=== PATIENT | male | born 1950 | race Caucasian/White ===

== ENCOUNTER → 2018-01-24 11:18 | Outpatient (CLI) | payer MEDICARE, SELFPAY | PROVIDERS: Family Provider Preventive Medicine Occupational Medicine; PCP Preventive Medicine Occupational Medicine; Visit Provider Urology | DX: R97.20 Elevated prostate specific antigen [PSA] (principal) | CPT/HCPCS: 36415; 84153 ==

== ENCOUNTER 2018-02-04 08:54 | Observation (INO) | payer MEDICARE, SELFPAY ==
[2018-02-04] VITALS (14 sets, daily range): BP systolic 107–140; BP diastolic 58–67; PULSE 61–85; RESP 14–18; TEMP 36.7–37.9; O2SAT 92–99; BMI 28.8
[2018-02-04 09:47] LABS: Hematocrit 23.8 % (40-54); Hemoglobin 7.5 g/dl (13.0-16.5); Mean Corp Hgb Conc 31.5 g/gl (32-36); Mean Corpuscular Hgb 25.9 pg (27.0-32.0); Mean Corpuscular Volume 82.1 fL (80-94); Mean Platelet Vol. 9.7 fl (6.2-12.0); Platelet Count 78 K/mm3 (150-450); RBC Distribution Width CV 18.8 % (11.6-14.6); RBC Distribution Width SD 54.5 fl (35.1-43.9); White Blood Count 1.2 K/mm3 (4.4-11.0)
[2018-02-04 09:48] LABS: Scan Indicated on CBC? Y/N YES- FLAGS NOTED
[2018-02-04 09:54] LABS: Anion Gap 5 (5-15); BUN 26 mg/dL (7-18); Calcium,Total 7.3 mg/dL (8.5-10.1); Chloride 108 mmol/L (98-107); Creatinine, Serum 1.13 mg/dL (0.70-1.30); EST Glomerular Filtration Rate 69 mL/min (>60); Est Glom Filt Rate - Afr Amer 84 mL/min (>60); Estimated Creatinine Clearance 65.17 ml/min; Glucose 89 mg/dL (74-106); Magnesium 2.1 mg/dL (1.6-2.6); Potassium 4.2 mmol/L (3.5-5.1); Sodium Level 142 mmol/L (136-145)
--- NOTE | 2018-02-04 11:05 | ONC.CON.INP2 ---
- Problem List (1) Myelofibrosis Status: Acute (2) Pancytopenia Status: Acute (3) Essential thrombocytosis Status: Chronic (4) Splenomegaly Status: Acute (5) CHF (congestive heart failure) Status: Acute Consult Referring Physician: Dr Jackson Consult Results: Pancytopenia, myelofibrosis, essential thrombocythemia, splenomegaly and congestive heart failure Subjective Date of Service:: 02/04/18 Chief Complaint: SOB History of Present Illness: Patient is a 67-year-old gentleman admitted with increasing fatigue and dyspnea and worsening congestive heart failure. His oncologic history is notable for myelofibrosis post essential thrombocythemia, Marcial 2 positive myeloproliferative neoplasm, pancytopenia and splenomegaly. He was first diagnosed in 2000 treated with Hydrea, anagrelide, and by 2015 developed progressive pancytopenia and splenomegaly and a bone marrow biopsy confirmed secondary myelofibrosis. He started JAKAFI (MARCIAL inhibitor, a tyrosine kinase inhibitor) December 2017 under the care of Dr. Payne. In early January 2018 he developed a viral GI illness which he recovered from a week earlier but subsequently was noted to have developed increasing dyspnea, lower extremities edema and symptoms suggestive of cardiac failure. He recently underwent cardiac cath which the patient reports to his knowledge did not show any significant coronary disease. A cardiac echo was done February 03, 2018 report not available yet. He was recently started on diuretics by his certified surgical assistant. He was hospitalized February 03, 2018 with increasing fatigue, dyspnea and received 2 units of packed red blood cells with some improvement of his symptoms. Past Medical History: Chronic Problems (Last Updated 02/02/18 @ 11:11 by Magalys Ramirez) Essential thrombocytosis (Chronic) Leukopenia (Chronic) Past Medical/Surgical History: Past Medical History - Most Recent Inpatient Visit Past Medical History Start: 02/04/18 08:41 Text: Status: Complete Freq: ONCE Protocol: Document 02/04/18 09:38 MLB (Rec: 02/04/18 09:45 MLB [id number]) BMI Required to complete PMH What is Patient's BMI 28.8 Neurologic Medical History Hx Stroke/TIA No Hx Dementia/Alzheimer's No Hx Parkinson's Disease No Hx Seizures No Hx Multiple Sclerosis No Hx Migraines No Cardiac Medical History VTE Present on Admission No Hx of Deep Vein Thrombosis/VTE/PE No Hx Hypertension Yes Hx Chest Pain/Angina No Hx Heart Attack No Hx Cardiac Surgery/Stents/Etc. No Hx Heart Failure Yes Hx Pacemaker/AICD No Hx Irregular Heartbeat and/or Afib Yes Hx Anticoagulant Therapy Yes: baby ASA Query Text:(Coumadin, Aspirin, Plavix, Xarelto, etc.) Respiratory Medical History Hx COPD No Hx Emphysema No Hx Smoking Yes Smoking Status Former smoker Years Smoking 4 Hx Tobacco Use in last 12 months No Hx Sleep Apnea No Do you snore loudly (louder than talking No or can be heard through closed doors)? Do you often feel tired/ fatigued/ No sleepy during daytime? Has anyone observed you stop breathing No during sleep? STOP Results Negative GI Medical History Hx Ulcer No Hx Hepatitis No Hx Cirrhosis No Hx GI Bleed No Hx Unplanned Weight Loss No Genitourinary Medical History Indwelling Catheter in Place on Arrival/ No Admission Hx Renal Disease No Hx Dialysis No Musculoskeletal History Hx Arthritis No Hx Rheumatoid Arthritis No Endocrine Medical History Hx Diabetes No Hx Thyroid Disease Yes: thyroid removed in 2003 Hematologic Medical History Hx of Blood Transfusion Yes Hx of Transfusion in last 3 Months Yes Date of Last Transfusion (if within last 02/04/18 3 months) Ever experience any problems with No transfusion(s)? Hx of Preganancy in last 3 Months N/A Nurse Filling Out Transfusion & MBALOGH Questions: Date: 02/04/18 Time: 09:44 Psycho/Social Medical History Hx Depression No Hx Anxiety No Hx Behavior Disorder No Hx Alcohol Use Yes: socially- rarely Hx Substance Use No Other Medical History Hx Blood Disorders Yes: myleofibrosis Hx Anemia Yes Hx Cancer Yes Hx Drug Resistant Organism No Wound/Pressure Injury Present on Arrival No /Admission Query Text:If yes, chart assessment in Shift/Clinical Findings Central Line/PICC/VAD Present on Arrival No /Admission Antibiotics within last 7 days? No Methicillin Resistant Staphylococcus aureus Screening Active MRSA No Risk for Readmission Number of Risk Factors 6 At Risk for Readmission Patient is At Risk For Readmission Patient is eligible for Call Back Y Past Medical History (Last Updated 02/02/18 @ 11:11 by Magalys Ramirez) CHF (congestive heart failure) (Acute) Bone cancer (Acute) Heart disease (Acute) Hyperlipidemia (Acute) Prostate cancer (Acute) Thrombocytopenia (Acute) Thyroid disease (Acute) Past Surgical History (Last Reviewed 02/02/18 @ 11:11 by Magalys Ramirez) H/O cardiac catheterization (Acute) History of thyroidectomy (Acute) - Social History Smoking Status: Former smoker Allergies/Adverse Reactions: Allergy/AdvReac Type Severity Reaction Status Date / Time pseudoephedrine AdvReac Severe Itching Verified 02/02/18 11:12 [From [facility]] Review of Systems Constitutional:: Reports: Weakness, Fatigue, Weight gain. Denies: Fever, Sweats, Weight loss, Appetite change, Chills Cardiovascular:: Reports: Ankle swelling, Dyspnea on exertion, Orthopnea, Peripheral edema, Shortness of breath. Denies: Chest pain, Palpitations, PND Respiratory: Reports: Shortness of Breath, Shortness of breath at rest, Shortness of breath upon exertion. Denies: Cough, Hemoptysis, Wheezing Gastrointestinal:: Reports: Gas/bloating. Denies: Abdominal pain, Nausea, Vomiting, Diarrhea, Constipation, Hematochezia Genitourinary: Denies: Dysuria, Hematuria, 15, Flank pain Musculoskeletal:: Denies: Back pain, Myalgia, Arthralgia Skin: Denies: Rash, Skin Changes, Wounds Neurological:: Reports: Headache. Denies: Dizziness, Visual changes, Tinnitus, Hearing loss Psychiatric: Denies: Anxiety, Depression, Homicidal Ideations, Suicidal Ideations Vital Signs Height 5 ft 9 in Weight: 88.451 kg Weight in Pounds 195.0 lbs Pulse Ox 96 Temperature 98.3 F Pulse Rate 63 Respiratory Rate 16 Blood Pressure 140/62 Blood Pressure Position Sitting - Physical Exam General: Alert, Oriented x3, No apparent distress, - - Obese ECOG 2 Mildly pale HEENT: Atraumatic, PERRLA, EOMI, Normocephalic Oropharynx:: Dry mucosa Neck:: Supple, Trachea midline. Negative for: JVD, bilateral Cardiac:: Regular rate, Regular rhythm, Normal S1, Normal S2. Negative for: Murmur Lungs: Clear to auscultation, Diminished - Over the basis, Excusion symmetrical. Negative for: Rhonchi, Wheezes Abdomen:: Soft, Non-tender, - - His abdomen is protuberant making palpation for spleen size difficult. Negative for: Hepatosplenomegaly Extremities:: Edema - 1+ ankles edema. Negative for: Cyanosis Neurological: Neuro grossly intact Skin:: Negative for: Lesions, Rash, Petechiae, Ecchymosis Psychiatric:: Appropriate affect, Euthymic Lymphatics:: Negative for: Cervical lymphadenopathy, Supraclavicular lymphadenopathy Laboratory Data: Laboratory Tests 02/04/18 02/04/18 Range/Units 09:28 09:28 WBC 1.2 L* (4.4-11.0) K/mm3 RBC 2.90 L (4.6-6.2) M/mm3 Hgb 7.5 L (13.0-16.5) g/dl Hct 23.8 L (40-54) % MCV 82.1 (80-94) fL MCH 25.9 L (27.0-32.0) pg MCHC 31.5 L (32-36) g/gl RDW 18.8 H (11.6-14.6) % RDW Differential 54.5 H (35.1-43.9) fl Plt Count 78 L (150-450) K/mm3 MPV 9.7 (6.2-12.0) fl Differential Comment Sodium 142 (136-145) mmol/L Potassium 4.2 (3.5-5.1) mmol/L Chloride 108 H (98-107) mmol/L Carbon Dioxide 29.0 (21.0-32.0) mmol/L Anion Gap 5 (5-15) BUN 26 H (7-18) mg/dL Creatinine 1.13 (0.70-1.30) mg/dL Estim Creat Clear Calc 65.17 ml/min Est GFR (MDRD) Af Amer 84 (>60) mL/min Est GFR (MDRD) Non-Af 69 (>60) mL/min BUN/Creatinine Ratio 23.0 H (10-20) RATIO Glucose 89 (74-106) mg/dL Calcium 7.3 L (8.5-10.1) mg/dL Magnesium 2.1 (1.6-2.6) mg/dL Laboratory Tests 11/11/17 01/06/18 02/02/18 10:59 10:55 10:45 WBC 1.5 L 2.3 L 1.1 L* Hgb 8.5 L 10.2 L 6.8 L Hct 28.5 L 33.3 L 21.9 L Plt Count 153 174 74 L Absolute Neuts (auto) 1.0 L 1.4 L 0.8 L 02/04/18 09:28 WBC 1.2 L* Hgb 7.5 L Hct 23.8 L Plt Count 78 L Absolute Neuts (auto) Assessment and Plan 67-year-old male with Marcial 2 positive myeloproliferative neoplasm (essential thrombocythemia) since 2000 that evolved into secondary myelofibrosis with progressive splenomegaly by 2015. He has developed increasing pancytopenia and splenomegaly and was started on Jakafi December 2017. Recently developed a viral GI illness followed by increasing congestive heart failure symptoms and fluid retention. From the hematology consult aspect recommend: 1. Transfused with packed red blood cells to a target hemoglobin above 8 g per DL. 2. Hold JAKAFI until congestive heart failure is better controlled and cause for cardiac failure is clarified. JAKAFI has an incidence of less than 10% of causing hypertension and fluid retention. 3. The worsening pancytopenia can be due to the natural progression of his bone marrow disease, but worsening pancytopenia can happen with initiation of Jakafi treatment and would require a dose adjustment. Again hold the drug until patient is more stable and can be followed up in the outpatient and if needed dose adjustment. Patient was seen was his impression and plan discussed he has an upcoming follow-up with in the outpatient office that he was advised to keep. Medications: Prescriptions This Visit Medication Instructions Recorded Allopurinol [Zyloprim] 300 mg PO DAILY 02/04/18 Atorvastatin Calcium [Lipitor] 10 mg PO QHS 02/04/18 Doxazosin Mesylate [Cardura] 4 mg PO QHS 02/04/18 Finasteride [Proscar] 5 mg PO DAILY 02/04/18 Furosemide [Lasix] 40 mg PO DAILY 02/04/18 Gemfibrozil [Lopid] 600 mg PO BIDAC 02/04/18 Levothyroxine [Synthroid] 175 mcg PO DAILY 02/04/18 Ruxolitinib Phosphate [Jakafi] 15 mg PO BID 02/04/18 Sotalol Hydrochloride [Betapace 80 mg PO BID 02/04/18 (G)] Medications Added to Medication List This Visit Category Date Time Status Acetaminophen [Tylenol] Med 02/04/18 08:54 Active 650 mg PO Q4H PRN PRN Docusate Sodium [Colace] Med 02/04/18 08:54 Active 200 mg PO BID PRN PRN Mag Hydrox/Al Hydrox/Simeth [Mylanta II] Med 02/04/18 08:54 Active 30 ml PO Q6H PRN PRN Magnesium Hydroxide [Milk Of Magnesia] Med 02/04/18 08:54 Active 30 ml PO DAILY PRN Ondansetron [Zofran] Med 02/04/18 08:54 Active 4 mg IV Q8H PRN PRN Oxycodone [Oxyir] Med 02/04/18 08:54 Active 5 mg PO Q4H PRN PRN Psyllium [Metamucil] Med 02/04/18 08:54 Active 1 packet PO DAILY PRN PRN Primary Care Provider: Diogenes Suarez Referring Provider: Lupillo Marie MD
--- NOTE | 2018-02-04 11:36 | HP.PCM_ITS ---
Problem List (1) Essential thrombocytosis Status: Chronic (2) Leukopenia Status: Chronic Qualifiers: Leukopenia type: other Qualified Code(s): D72.818 - Other decreased white blood cell count (3) Myelofibrosis Status: Chronic (4) Anemia Status: Acute Qualifiers: Bone marrow failure anemia type: myelophthisis (5) Pancytopenia Status: Acute (6) CHF (congestive heart failure) Status: Acute (7) Splenomegaly Status: Chronic History of Present Illness Date of Admission: 02/04/18 Chief Complaint: Fatigue The patient is a 67 year old M with past medical history significant for myelofibrosis for which he is currently getting treatment with JAKAFI who presents with fatigue. Patient reports fatigue which is worsened with minimal activity. Patient first reported to [facility] where he was found to have a hemoglobin of 7 with a BB gun of 1.7. An order was given for patient to be transfused with 1 unit PRBC. Patient subsequently requested to be transferred to [facility] since his oncologist is here. Seen. Patient reports shortness of breath with minimal activity. Denies any chest pain. Denies any nausea no vomiting. Patient has been admitted to a monitored bed for subsequent management Past Medical History Past Medical History (Chronic Problems): Chronic Problems (Last Updated 02/02/18 @ 11:11 by Magalys Ramirez) Essential thrombocytosis (Chronic) Leukopenia (Chronic) Myelofibrosis (Chronic) Splenomegaly (Chronic) Medical History: Medical History (Last Updated 02/02/18 @ 11:11 by Magalys Ramirez) CHF (congestive heart failure) I50.9 Bone cancer C41.9 Heart disease I51.9 Hyperlipidemia E78.5 Prostate cancer C61 Thrombocytopenia D69.6 Thyroid disease E07.9 Allergies pseudoephedrine [From Sudafed] Adverse Reaction (Severe, Verified 02/02/18 11:12 ) Itching FEVER Home Medications: Ambulatory Orders Medication Instructions Recorded Allopurinol [Zyloprim] 300 mg PO DAILY 02/04/18 Atorvastatin Calcium [Lipitor] 10 mg PO QHS 02/04/18 Doxazosin Mesylate [Cardura] 4 mg PO QHS 02/04/18 Finasteride [Proscar] 5 mg PO DAILY 02/04/18 Furosemide [Lasix] 40 mg PO DAILY 02/04/18 Gemfibrozil [Lopid] 600 mg PO BIDAC 02/04/18 Levothyroxine [Synthroid] 175 mcg PO DAILY 02/04/18 Ruxolitinib Phosphate [Jakafi] 15 mg PO BID 02/04/18 Sotalol Hydrochloride [Betapace 80 mg PO BID 02/04/18 (G)] Surgical History: Surgical History (Last Reviewed 02/02/18 @ 11:11 by Magalys Ramirez) H/O cardiac catheterization Z98.890 History of thyroidectomy E89.0 Smoking Status: Former smoker - *Family History Maternal Family History: Family History (Last Reviewed 02/04/18 @ 11:50 by Chidi Garcia MD) Mother Heart disease Father COPD (chronic obstructive pulmonary disease) Review of Systems Constitutional: Reports: Malaise, Weakness Cardiovascular: Reports: Edema, Orthopnea Respiratory: Reports: Shortness of breath upon exertion Gastrointestinal: Denies: Abdominal Pain, Hematemesis, Hematochezia, Nausea, Melena, Vomiting Genitourinary: Denies: Dysuria, Frequency, Hematuria, Urgency Musculoskeletal: Denies: Joint Pain, Joint Tenderness Skin: Denies: Rash Neurological: Denies: Focal weakness, Numbness, Tingling Psychiatric: Denies: Homicidal Ideations, Suicidal Ideations Hematologic/ Lymphatic: Denies: Easy Bruising, Easy Bleeding VTE Information - Inpt Only VTE Present on Admission: No VTE Mechan Device Prophylaxis: Knee High TRINITY Hose VTE Pharm Prophylaxis ordered?: No Patient Problems: Active and Suspected Problems (Last Updated 02/02/18 @ 11:11 by Magalys Ramirez) Anemia (Acute) Pancytopenia (Acute) CHF (congestive heart failure) (Acute) Objective: GENERAL: cooperative HEENT: Clear conjunctiva, NECK; supple, normal thyroid, . CHEST: Diminished to auscultation bilaterally, HEART: Regular S1 S2, no audible murmurs ABDOMEN: soft, non-tender, normoactive bowel sounds, RECTAL: deferred EXTREMITIES: Trace edema, no clubbing, no cyanosis. HEATING WORKER: Awake; no lateralizing signs. SKIN: No Rash - Physical Exam Vital Signs Temp Pulse Resp BP Pulse Ox 98.3 F 63 16 140/62 H 96 02/04/18 08:25 02/04/18 08:50 02/04/18 08:25 02/04/18 08:25 02/04/18 08:25 Oxygen Delivery Method Room Air Weight: 88.451 kg Body Mass Index (BMI) 28.8 Laboratory Tests Past 24 Hrs 02/04/18 02/04/18 09:28 09:28 WBC 1.2 L* RBC 2.90 L Hgb 7.5 L Hct 23.8 L MCV 82.1 MCH 25.9 L MCHC 31.5 L RDW 18.8 H RDW Differential 54.5 H Plt Count 78 L MPV 9.7 Differential Comment Sodium 142 Potassium 4.2 Chloride 108 H Carbon Dioxide 29.0 Anion Gap 5 BUN 26 H Creatinine 1.13 Estim Creat Clear Calc 65.17 Est GFR (MDRD) Af Amer 84 Est GFR (MDRD) Non-Af 69 BUN/Creatinine Ratio 23.0 H Glucose 89 Calcium 7.3 L Magnesium 2.1 Assessment/Plan All Active Problems (Last Updated 02/02/18 @ 11:11 by Magalys Ramirez) Anemia (Acute) Pancytopenia (Acute) CHF (congestive heart failure) (Acute) Patient is a 67-year-old gentleman with history of Myelofibrosis presented with exertional fatigue 1. Symptomatic anemia patient was transferred from [facility]. Patient had been transfused with 2 units PRBC prior to his transfer. An order was given for repeat H&H in a.m. 2. Myelofibrosis patient is on JAKAFI. Held per recommendations from oncology 3. Acute congestive heart failure patient is on Lasix patient recently had an echo a requisition was given for the result 4. Pancytopenia with leukopenia, thrombocytopenia as well as anemia secondary to patient's myelofibrosis 5. 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 History of prostate CA currently remission 7. BPH patient is on Proscar 8. Dyslipidemia-patient is on statin therapy, continued at home dose 9. Paroxysmal A. fib patient is on Betapace currently in sinus rhythm 10. DVT prophylaxis did encourage early ambulation avoided the use of chemoprophylaxis in view of patient low platelet count Active Medications Acetaminophen (Tylenol) 650 mg PO Q4H PRN PRN PRN Reason: FEVER Al Hydroxide/Mg Hydroxide (Mylanta Ii) 30 ml PO Q6H PRN PRN PRN Reason: Gastric Burning Allopurinol (Zyloprim) 300 mg PO DAILY YARELI Atorvastatin Calcium (Lipitor) 10 mg PO QHS [facility] Docusate Sodium (Colace) 200 mg PO BID PRN PRN PRN Reason: Constipation Doxazosin Mesylate (Cardura) 4 mg PO QHS YARELI Finasteride (Proscar) 5 mg PO DAILY [facility] Furosemide (Lasix) 40 mg IV Q8 YARELI Gemfibrozil (Lopid) 600 mg PO BIDAC [facility] Levothyroxine Sodium (Synthroid) 175 mcg PO DAILY@0600 [facility] Magnesium Hydroxide (Milk Of Magnesia) 30 ml PO DAILY PRN PRN Reason: Constipation Ondansetron HCl (Zofran) 4 mg IV Q8H PRN PRN PRN Reason: Nausea Oxycodone HCl (Oxyir) 5 mg PO Q4H PRN PRN PRN Reason: Moderate Pain (pain scale 4-5) Psyllium Hydrophilic Mucilloid (Metamucil) 1 packet PO DAILY PRN PRN PRN Reason: CONSTIPATION Sotalol HCl (Betapace (G)) 80 mg PO BID [facility] Code Visit OBSV E&M: 62111 Initial observation care L3
[2018-02-04 12:41] LABS: BNP,B-Type NATRIURETIC PEPTIDE 505.5 pg/mL (0-100)
[2018-02-04] MEDS: Sotalol Hydrochloride 80 MG Tablet PO ×2 (12:45→21:48)
[2018-02-04] MEDS: Allopurinol 300 MG Tablet PO (12:45)
[2018-02-04] MEDS: Furosemide 40 MG/4 ML Vial IV ×2 (12:45→21:48)
[2018-02-04 12:47] LABS: Thyroid Stim Hormone (TSH) 6.77 uIU/mL (0.358-3.74)
[2018-02-04] MEDS: Mag Hydrox/Al Hydrox/Simeth 30 ML UDC PO (14:37)
[2018-02-04] MEDS: Gemfibrozil 600 MG Tablet PO (17:20)
[2018-02-04] MEDS: 0.9% NaCl Peripheral Flush Adult/Peds IV (21:48)
[2018-02-04] MEDS: Finasteride 5 MG Tablet PO (21:48)
[2018-02-04] MEDS: Doxazosin 4 MG Tablet PO (21:48)
[2018-02-04] MEDS: Atorvastatin Calcium 10 MG Tablet PO (21:48)
[2018-02-04] MEDS: Acetaminophen 325 MG Tablet 650 MG PO (22:44)
[2018-02-05 02:32] LABS: Hematocrit 26.6 % (40-54); Hemoglobin 8.5 g/dl (13.0-16.5)
[2018-02-05 03:12] VITALS: PULSE 61
[2018-02-05 05:44] VITALS: BP 112/62; PULSE 71; RESP 16; TEMP 38.1; O2SAT 92
[2018-02-05] MEDS: 0.9% NaCl Peripheral Flush Adult/Peds IV (05:46)
[2018-02-05] MEDS: Levothyroxine 175 MCG Tablet PO (05:46)
[2018-02-05] MEDS: Furosemide 40 MG/4 ML Vial IV (05:46)
[2018-02-05] MEDS: Acetaminophen 325 MG Tablet 650 MG PO (05:48)
[2018-02-05 06:57] LABS: Hemoglobin 8.6 g/dl (13.0-16.5)
[2018-02-05 07:10] VITALS: PULSE 81
[2018-02-05 08:06] LABS: Hematocrit 26.8 % (40-54); Hemoglobin 8.6 g/dl (13.0-16.5); Mean Corp Hgb Conc 32.1 g/gl (32-36); Mean Corpuscular Volume 84.3 fL (80-94); Platelet Count 89 K/mm3 (150-450); RBC Distribution Width CV 18.8 % (11.6-14.6); RBC Distribution Width SD 54.3 fl (35.1-43.9); Red Blood Count 3.18 M/mm3 (4.6-6.2); White Blood Count 1.1 K/mm3 (4.4-11.0)
[2018-02-05 08:07] LABS: Differential Indicated MANUAL DIFF; POSITIVE COUNT YES; POSITIVE DIFFERENTIAL YES; POSITIVE MORPHOLOGY YES
--- NOTE | 2018-02-05 08:17 | RAD_ITS ---
STUDY: X-RAY CHEST REASON FOR EXAM: Male, 67 years old. Fever TECHNIQUE: Frontal view of the chest COMPARISON: None. FINDINGS: The lungs are clear. There are no pleural effusions. There is no pneumothorax. The heart is normal in size. The visualized osseous structures are within normal limits. RAD/Chest 1 View (Portable) IMPRESSION: No acute thoracic pathology. Electronically Signed: Isreal Lorenzana, at 9:43 EDT Tel , Service support ,
[2018-02-05 08:19] LABS: Anisocytosis 2+; Eosinophil 2 % (0-5); Hypochromasia 2+; Lymphocyte 14 % (19-41); Metamyelocyte 2 % (0-1); Monocyte 8 % (0-10); Neutrophil-Band 4 % (0-5); Neutrophil-Segmented 70 % (47-70); Nucleated Red Bld Cells,Manual 4 % (0-5); Platelet Estimate MKD DEC (ADEQ); Platelet Morphology LARGE; Total Cells Counted 50 (MANUAL DIFF)
[2018-02-05 08:20] LABS: Polychromasia 1+; Tear Drop Cell 1+
[2018-02-05 08:21] LABS: Absolute Lymphocyte Count 0.07 X10^3/ul (0.83-4.51); Absolute Neutrophil Count 0.4 X10^3/uL (2.0-7.7)
[2018-02-05] MEDS: Sotalol Hydrochloride 80 MG Tablet PO (09:29)
[2018-02-05] MEDS: Gemfibrozil 600 MG Tablet PO (09:29)
[2018-02-05] MEDS: Allopurinol 300 MG Tablet PO (09:29)
[2018-02-05 09:30] VITALS: BP 104/51; PULSE 68; RESP 18; TEMP 36.9; O2SAT 96
--- NOTE | 2018-02-05 10:18 | DCINST_ITS ---
- Discharge Diagnoses Current Active Problems: Current Active and Chronic Problems (Last Updated 02/02/18 @ 11:11 by Magalys Ramirez) Essential thrombocytosis (Chronic) Leukopenia (Chronic) Myelofibrosis (Chronic) Anemia (Acute) Pancytopenia (Acute) CHF (congestive heart failure) (Acute) Splenomegaly (Chronic) You will use the following diet at home:: Regular Your food should be the consistency of: Regular Discharge Activity: Return to Normal Activity Weight Bearing Status: Weight bearing as tolerated Call your doctor if you observe: Fever of 101 or Higher, Shortness of breath, Dizziness, Fainting spells, Chest pain, Increased palpitations (irregular heartbeat), Uncontrolled pain Additional Instructions: Stop taking Jakafi until you see Dr. Jansen. Allergies/Adverse Reactions: Allergies pseudoephedrine [From Sudafed] Adverse Reaction (Severe, Verified 02/02/18 11:12 ) Itching FEVER Medications to take at Discharge Allopurinol [Zyloprim] 300 mg PO DAILY 02/04/18 Atorvastatin Calcium [Lipitor] 10 mg PO QHS 02/04/18 Doxazosin Mesylate [Cardura] 4 mg PO QHS 02/04/18 Finasteride [Proscar] 5 mg PO DAILY 02/04/18 Furosemide [Lasix] 40 mg PO DAILY 02/04/18 Gemfibrozil [Lopid] 600 mg PO BIDAC 02/04/18 Levothyroxine [Synthroid] 175 mcg PO DAILY 02/04/18 Ruxolitinib Phosphate [Jakafi] 15 mg PO BID 02/04/18 Sotalol Hydrochloride [Betapace (Beta Wally)] 80 mg PO BID 02/04/18 Primary Care Physician: Diogenes Suarez DO [Primary Care Provider] - Please follow up with your Primary Care Physician in: 1-2 weeks. Test Results: Test results from this visit will be discussed in further detail at your follow- up appointment, if applicable. Please Follow Up With: Faheem Jansen MD When: as scheduled.
[2018-02-05 10:57] LABS: Bacteria 0 SEEN /hpf (None Seen); Mucous, Urine 0 SEEN /hpf (<or=2+); Red Blood Cells-Urine 0 SEEN /hpf (0-5); Squamous Epithelial Cells - UA 0 SEEN /hpf (0-5); White Blood Cells 0 SEEN /hpf (0-5)
[2018-02-05 10:58] LABS: Color, Urine Yellow (Yellow); Glucose, Dipstick Normal (Normal); Ketone-Dipstick Negative (Negative); Leukocyte Esterase-Dipstick Negative /ul (Negative); Nitrite-Dipstick Negative (Negative); Occult Blood-Urine Negative /ul (Negative); Protein-Dipstick Negative (Negative); Urine Bilirubin Dipstick Negative (Negative); Urine Clarity Clear (Clear); Urine Urobilinogen Normal (Normal)
[2018-02-05 11:05] LABS: Hyaline Cast 0-5 SEEN /lpf (0-5)
--- NOTE | 2018-02-05 16:23 | DS.PCM_ITS ---
Discharge Date and Diagnosis Date of Admission: 02/04/18 Date of Discharge: 02/05/18 - Primary Discharge Diagnosis #1 acute on chronic symptomatic anemia required blood transfusion. #2 pancytopenia/neutropenia. - Secondary Discharge Diagnosis Chronic Problems (Last Updated 02/02/18 @ 11:11 by Magalys Ramirez) Essential thrombocytosis (Chronic) Leukopenia (Chronic) Myelofibrosis (Chronic) Splenomegaly (Chronic) Hospital Course and Treatment Imaging Results: 02/05/18 08:17 CXR [Chest 1 View (Portable)] [RAD] Urgent Clinical Impression(s) from Imaging Studies Chest X-Ray 02/05/18 08:17 IMPRESSION: No acute thoracic pathology. Electronically Signed: Isreal Lorenzana, at 9:43 EDT Tel , Service support , , oncology. Operations: None Procedures: Blood transfusion Summary of Care Provided: Patient seen and examined on the day of discharge and appeared to be stable to be discharged home. He denied any significant complaints. Denies chest pain or shortness of breath. Denied dizziness or lightheadedness. He has been having spikes of low-grade fever overnight. He mentioned that he has been having spikes of low-grade fever at home for long time. Denies cough or sputum production. Denies urinary symptoms. His maximum temperature was 100.5 Fahrenheit, other vital signs are stable. - Physical Exam General: Alert, Oriented x3, Cooperative, No apparent distress. HEENT: Atraumatic, PERRLA, EOMI. Neck: Supple, No JVD, Negative Carotid Bruits, Trachea Midline, Thyroid Normal. Lungs: Clear to auscultation, Normal air movement, No rhonchi, No wheeze, No rales. Cardiovascular: Regular rate, Regular Rhythm, Normal S1, Normal S2, PMI Normal. Abdomen: Bowel Sounds Present, Soft, Non Tender, Non-Distended, No Hepato- splenomegaly. Extremities: No clubbing, No cyanosis, No edema Skin: No rashes, No breakdown Neurological: Neuro grossly intact Hospital course: This is a 67 years old male patient transferred from outside facility for symptomatic acute on chronic anemia. He had history of myelofibrosis. He was found to have pancytopenia with neutropenia. He received 2 units of packed RBCs at the other facility and after transfer, he received and another unit of packed RBCs. His hemoglobin upon admission was 7.5 g/dL and upon discharge, it was 8.6 g/dL. Patient was on Jakafi for myelofibrosis. Oncology consulted and recommended to transfuse blood if hemoglobin less than 8 g/dL. After transfusion, hemoglobin and hematocrit remained stable and his symptoms improved. Patient had spikes of low-grade fever during this hospital stay, maximum was 100.5 Fahrenheit. He mentioned that he has been having spikes of low-grade fever for a long time, months if not years. He denied any symptoms suggestive of infection. Chest x-ray showed no acute findings, no infiltrate. Urinalysis revealed clear urine, negative for nitrite, negative for leukocyte esterase, there was no WBCs or bacteria seen. Blood culture sent. His absolute neutrophil count was 400. I discussed the case with Dr. Jansen and we agreed to do blood cultures while the patient is here, no indication for IV antibiotics and plan is to have Dr. Jansen monitor his blood cultures and call the patient if needed. Patient discharged home in a stable medical condition, discharged on the same medication that he was taking at home, requested to stop taking Jakafi, plan to follow-up with oncology this coming week, follow-up with PCP in 1 week. Discharge Activity: Return to Normal Activity Weight Bearing Status: Weight bearing as tolerated Call your doctor if you observe: Fever of 101 or Higher, Shortness of breath, Dizziness, Fainting spells, Chest pain, Increased palpitations (irregular heartbeat), Uncontrolled pain Home Medications: Medications to take at Discharge Allopurinol [Zyloprim] 300 mg PO DAILY 02/04/18 Atorvastatin Calcium [Lipitor] 10 mg PO QHS 02/04/18 Doxazosin Mesylate [Cardura] 4 mg PO QHS 02/04/18 Finasteride [Proscar] 5 mg PO DAILY 02/04/18 Furosemide [Lasix] 40 mg PO DAILY 02/04/18 Gemfibrozil [Lopid] 600 mg PO BIDAC 02/04/18 Levothyroxine [Synthroid] 175 mcg PO DAILY 02/04/18 Ruxolitinib Phosphate [Jakafi] 15 mg PO BID 02/04/18 Sotalol Hydrochloride [Betapace (Beta Wally)] 80 mg PO BID 02/04/18 Primary Care Physician: Diogenes Suarez DO [Primary Care Provider] - Please follow up with your Primary Care Physician in: 1-2 weeks. Please Follow Up With: Faheem Jansen MD When: as scheduled. Disposition: Home Minutes spent on discharge:: 26 Patient Condition:: Stable Medical Necessity - Tobacco Use Smoking Status: Former smoker Meaningful Use Info Meaningful Use Diagnoses (Choose all that apply): None applicable Code Visit OBSV E&M: 09227 Observation care discharge
[2018-02-07 14:09] LABS: Pathologist Review Reviewed
== END 2018-02-05 10:17 | disposition home or self-care (01) ==
PROVIDERS: Internal Medicine; Admitting Provider Hospitalist; Family Provider Preventive Medicine Occupational Medicine; PCP Preventive Medicine Occupational Medicine; Visit Provider Hospitalist
DX: D61.818 Other pancytopenia (principal); D75.81 Myelofibrosis; Z87.891 Personal history of nicotine dependence; D61.89 Other specified aplastic anemias and other bone marrow failure syndromes; I50.9 Heart failure, unspecified; C41.9 Malignant neoplasm of bone and articular cartilage, unspecified; E78.5 Hyperlipidemia, unspecified; I51.9 Heart disease, unspecified; Z79.899 Other long term (current) drug therapy; Z85.46 Personal history of malignant neoplasm of prostate; E89.0 Postprocedural hypothyroidism; I48.0 Paroxysmal atrial fibrillation; N40.0 Benign prostatic hyperplasia without lower urinary tract symptoms
CPT/HCPCS: 36415; 36430; 71045; 80048; 81001; 83735; 83880; 84443; 84484; 85014; 85018; 85025; 85027; 86850; 86900; 86920; 86922; 87040; 96374; 96376; 99218; J7040; P9016; A4216; G0378; G0379; J1940

== ENCOUNTER 2018-02-07 10:55 | Emergency (ER) | payer MEDICARE, SELFPAY ==
[2018-02-07 10:56] VITALS: BP 152/79; PULSE 71; RESP 18; TEMP 37.1; O2SAT 95; BMI 29.7
[2018-02-07] MEDS: 0.9% Normal Saline 1,000 ML 150 ML IV (13:11)
[2018-02-07 13:20] LABS: Absolute Lymphocyte Count 0.16 X10^3/ul (0.83-4.51); Absolute Neutrophil Count 0.5 X10^3/uL (2.0-7.7); Basophil# 0.01 X10^3/uL; Basophil% 1.5 % (0-1); Eosinophil# 0.01 X10^3/uL; Eosinophils% 1.5 % (0-5); Hematocrit 23.8 % (40-54); Hemoglobin 7.6 g/dl (13.0-16.5); Lymphocyte # 0.16 X10^3/ul (4.0); Lymphocyte % 23.5 % (19-41); Mean Corp Hgb Conc 31.9 g/gl (32-36); Mean Corpuscular Hgb 26.5 pg (27.0-32.0); Mean Corpuscular Volume 82.9 fL (80-94); Monocyte# 0.02 X10^3/uL; Monocyte% 2.9 % (0-10); Neutrophil # 0.47 X10^3/uL (2.7-7.7); Neutrophil % 69.1 % (47-70); Platelet Count 63 K/mm3 (150-450); RBC Distribution Width CV 19.7 % (11.6-14.6); RBC Distribution Width SD 59.9 fl (35.1-43.9); Red Blood Count 2.87 M/mm3 (4.6-6.2)
[2018-02-07 13:21] LABS: Differential Indicated SCAN CRITERIA MET; POSITIVE COUNT YES; POSITIVE DIFFERENTIAL YES; POSITIVE MORPHOLOGY YES; White Blood Count 0.7 K/mm3 (4.4-11.0)
[2018-02-07 13:22] LABS: Absolute Nucleated RBC Count 0.03 10^3/uL (0-5); NRBC Flagged by Analyzer 5.2 % (0-5)
[2018-02-07 13:34] LABS: AST(SGOT) 19 U/L (15-37); Alanine Aminotransfer ALT/SGPT 16 U/L (16-61); Albumin, Serum 3.5 g/dL (3.2-5.0); Alkaline Phosphatase 55 U/L (45-117); Anion Gap 6 (5-15); BUN 47 mg/dL (7-18); BUN/Creat Ratio 27.6 RATIO (10-20); Calcium,Total 7.7 mg/dL (8.5-10.1); Chloride 105 mmol/L (98-107); EST Glomerular Filtration Rate 43 mL/min (>60); Est Glom Filt Rate - Afr Amer 52 mL/min (>60); Estimated Creatinine Clearance 43.32 ml/min; Globulin 3.4 g/dL (2.2-4.2); Glucose 99 mg/dL (74-106); Protein, Total 6.9 g/dL (6.4-8.2); Sodium Level 139 mmol/L (136-145)
[2018-02-07 13:36] LABS: Lactic Acid 0.6 mmol/L (0.4-2.0)
[2018-02-07 13:43] LABS: Anisocytosis 2+; Ovalocyte 1+; Platelet Estimate MKD DEC (ADEQ); Red Cell Morphology N CHROM NORMAL (NORM C&C); Tear Drop Cell 2+
[2018-02-07 13:59] LABS: Mucous, Urine 0 SEEN /hpf (<or=2+); Red Blood Cells-Urine 0 SEEN /hpf (0-5); Squamous Epithelial Cells - UA 0 SEEN /hpf (0-5); White Blood Cells 0 SEEN /hpf (0-5)
[2018-02-07 14:00] VITALS: BP 102/53; PULSE 70; RESP 18; O2SAT 95
[2018-02-07 14:02] LABS: Color, Urine Yellow (Yellow); Glucose, Dipstick Normal (Normal); Ketone-Dipstick Negative (Negative); Leukocyte Esterase-Dipstick Negative /ul (Negative); Nitrite-Dipstick Negative (Negative); Occult Blood-Urine Negative /ul (Negative); Protein-Dipstick Negative (Negative); Urine Bilirubin Dipstick Negative (Negative); Urine Clarity Clear (Clear); Urine Urobilinogen Normal (Normal); Urine pH 6.5 (5.0 - 8.0)
[2018-02-07 14:09] LABS: Bacteria RARE /hpf (None Seen)
--- NOTE | 2018-02-07 14:22 | RAD_ITS ---
STUDY: X-RAY CHEST REASON FOR EXAM: Male, 67 years old. fever,slight cough, neutropenic TECHNIQUE: 2 COMPARISON: None. FINDINGS: The lungs are clear and expanded. There is no demonstrated pleural abnormality. Normal size heart. Normal mediastinum and [place]. Normal visualized pulmonary arteries. Normal visualized aortic arch and descending thoracic aorta. Normal visualized thoracic spine. There is degenerative osteoarthritis of the bilateral shoulders. There is no demonstrated abnormality of the visualized soft tissue structures of the upper abdomen. RAD/Chest PA and Lateral IMPRESSION: Normal x-ray examination of the chest. Electronically Signed: Aleks Bah MD at 15:30 EDT Tel , Service support ,
--- NOTE | 2018-02-07 15:09 | ED.VISSUMM ---
- ER Visit Summary Date of Service: 02/07/18 Chief Complaint: Sent to the room because of reported fever and history of pancytopenia History of Present Illness: The patient is a 67 M who has history of myelofibrosis and pancytopenia who was admitted this past weekend for symptomatic anemia. He had documented temperature 103.2? less than 24 hours ago. Prior to presentation his temperature was 99.8?F. His only complaint is some objective minimal cough and abdominal pain. He also noted petechia. He denies headache, nasal congestion, rhinorrhea, postnasal drainage. Denies earache or sore throat. He denies dyspnea on exertion or at rest. He denies dysuria, frequency, urgency or hematuria. He has no other complaints. Past medical history of CHF with spared ejection fraction, hypercholesterolemia, pancytopenia with history of myelofibrosis. Physical Examination: Patient appears pale. HEENT exam is remarkable for pale conjunctivae. Lungs are clear to auscultation. Heart is regular. Abdomen is soft distended nontender to light palpation. He complains of minimal discomfort with deep palpation in the epigastric area. There is no asymmetry, swelling, discoloration, leg vein distention, palpable cords or tenderness along the distribution of the deep venous system. Neuro exam is nonfocal. Test Results: White count is 700 with an absolute neutrophil count of 480. Creatinine slightly elevated at 1.7 which is about baseline. His most recent creatinine was 1.13. UA is unremarkable. Lactate is normal. Two-view chest x-ray reveals normal cardiac silhouette and mediastinum. There is no infiltrate noted. There is no effusion noted. Emergency Department Course and Treatment: Neutropenic order set was initiated and he received a dose of meropenem. Treatment Plan: Case was discussed with oncologist. Plan is to discharge a prescription for Augmentin and ciprofloxacin. Disposition: Discharged to home with spouse Impression: 1. Fever and neutropenic patient 2. History of myelofibrotic disease 3. Renal insufficiency 4. Anemia, hemoglobin 7.6 asymptomatic 5. History of congestive heart failure This note was generated with [employer] dictation software. It may contain incorrect words, spelling, and punctuation that were not noted in review of the chart prior to signing ED Disposition - Plan for ED Patient: Disposition: Home or Assisted Living Chief Complaint: Fever Instructions: Neutropenia Prescriptions: Amoxicillin/Potassium Clav [Augmentin 875-125 Tablet] 1 ea PO BID #14 tab Ciprofloxacin [Cipro] 500 mg PO BID #14 tab Referrals: Diogenes Suarez DO [Primary Care Provider] - Lupillo Payne MD [NON-STAFF] - 3-5 Days if not improving Additional Instructions: Your prescription was sent to [facility] pharmacy your preferred pharmacy
--- NOTE | 2018-02-07 15:17 | ED.DCSUM_ITS ---
- ER Visit Summary Date of Service: 02/07/18 Chief Complaint: Sent to the room because of reported fever and history of pancytopenia History of Present Illness: The patient is a 67 M who has history of myelofibrosis and pancytopenia who was admitted this past weekend for symptomatic anemia. He had documented temperature 103.2? less than 24 hours ago. Prior to presentation his temperature was 99.8?F. His only complaint is some objective minimal cough and abdominal pain. He also noted petechia. He denies headache, nasal congestion, rhinorrhea, postnasal drainage. Denies earache or sore throat. He denies dyspnea on exertion or at rest. He denies dysuria, frequency, urgency or hematuria. He has no other complaints. Past medical history of CHF with spared ejection fraction, hypercholesterolemia , pancytopenia with history of myelofibrosis. Physical Examination: Patient appears pale. HEENT exam is remarkable for pale conjunctivae. Lungs are clear to auscultation. Heart is regular. Abdomen is soft distended nontender to light palpation. He complains of minimal discomfort with deep palpation in the epigastric area. There is no asymmetry, swelling, discoloration, leg vein distention, palpable cords or tenderness along the distribution of the deep venous system. Neuro exam is nonfocal. Test Results: White count is 700 with an absolute neutrophil count of 480. Creatinine slightly elevated at 1.7 which is about baseline. His most recent creatinine was 1.13. UA is unremarkable. Lactate is normal. Two-view chest x- ray reveals normal cardiac silhouette and mediastinum. There is no infiltrate noted. There is no effusion noted. Emergency Department Course and Treatment: Neutropenic order set was initiated and he received a dose of meropenem. Treatment Plan: Case was discussed with oncologist. Plan is to discharge a prescription for Augmentin and ciprofloxacin. Disposition: Discharged to home with spouse Impression: 1. Fever and neutropenic patient 2. History of myelofibrotic disease 3. Renal insufficiency 4. Anemia, hemoglobin 7.6 asymptomatic 5. History of congestive heart failure This note was generated with [employer] dictation software. It may contain incorrect words, spelling, and punctuation that were not noted in review of the chart prior to signing ED Disposition - Plan for ED Patient: Disposition: Home or Assisted Living Chief Complaint: Fever Instructions: Neutropenia Prescriptions: Amoxicillin/Potassium Clav [Augmentin 875-125 Tablet] 1 ea PO BID #14 tab Ciprofloxacin [Cipro] 500 mg PO BID #14 tab Referrals: Diogenes Suarez DO [Primary Care Provider] - Lupillo Payne MD [NON-STAFF] - 3-5 Days if not improving Additional Instructions: Your prescription was sent to [facility] pharmacy your preferred pharmacy
[2018-02-07 15:50] VITALS: BP 104/58; PULSE 58; RESP 16; O2SAT 96
[2018-02-08 16:29] LABS: Pathologist Review Reviewed
== END 2018-02-07 15:51 | disposition home or self-care (01) ==
PROVIDERS: Emergency Provider Emergency Medicine; Family Provider Preventive Medicine Occupational Medicine; PCP Preventive Medicine Occupational Medicine
DX: R50.9 Fever, unspecified (principal); D70.9 Neutropenia, unspecified; D75.81 Myelofibrosis; N28.9 Disorder of kidney and ureter, unspecified; D64.9 Anemia, unspecified; I50.9 Heart failure, unspecified; E78.00 Pure hypercholesterolemia, unspecified; Z79.899 Other long term (current) drug therapy; Z87.891 Personal history of nicotine dependence
CPT/HCPCS: 71046; 80053; 81001; 83605; 85025; 87040; 87086; 87088; 96365; 96366; 99284; J2185; A4216

== ENCOUNTER 2018-03-23 21:33 | Inpatient (IN) | payer MEDICARE, SELFPAY ==
[2018-03-23 21:35] VITALS: BP 108/63; PULSE 78; RESP 16; TEMP 37.5; O2SAT 98; BMI 29.2
[2018-03-24] VITALS (13 sets, daily range): BP systolic 108–129; BP diastolic 51–83; PULSE 73–88; RESP 12–20; TEMP 37.2–39.3; O2SAT 93–100; BMI 28.7
[2018-03-24] MEDS: 0.9% Normal Saline 1,000 ML 150 ML IV ×3 (00:04→18:10)
[2018-03-24 00:18] LABS: Lactic Acid 0.6 mmol/L (0.4-2.0)
[2018-03-24] MEDS: levoFLOXacin IV 750 MG/150 ML BAG 100 MG IV (00:33)
[2018-03-24 00:41] LABS: Hematocrit 26.8 % (40-54); Hemoglobin 8.2 g/dl (13.0-16.5); Mean Corp Hgb Conc 30.6 g/gl (32-36); Mean Corpuscular Hgb 27.2 pg (27.0-32.0); Mean Corpuscular Volume 88.7 fL (80-94); Platelet Count 123 K/mm3 (150-450); RBC Distribution Width CV 20.3 % (11.6-14.6); Red Blood Count 3.02 M/mm3 (4.6-6.2)
[2018-03-24 00:42] LABS: Differential Indicated MANUAL DIFF; POSITIVE COUNT YES; POSITIVE DIFFERENTIAL YES; POSITIVE MORPHOLOGY YES; White Blood Count 1.2 K/mm3 (4.4-11.0)
[2018-03-24 00:43] LABS: Bacteria 0 SEEN /hpf (None Seen); Mucous, Urine 0 SEEN /hpf (<or=2+); Red Blood Cells-Urine 0 SEEN /hpf (0-5); Squamous Epithelial Cells - UA 0 SEEN /hpf (0-5); White Blood Cells 0 SEEN /hpf (0-5)
[2018-03-24 00:44] LABS: Color, Urine Yellow (Yellow); Glucose, Dipstick Normal (Normal); Ketone-Dipstick Negative (Negative); Leukocyte Esterase-Dipstick Negative /ul (Negative); Nitrite-Dipstick Negative (Negative); Occult Blood-Urine Negative /ul (Negative); Protein-Dipstick 15 mg/dl (Negative); Urine Bilirubin Dipstick Negative (Negative); Urine Clarity Clear (Clear); Urine Urobilinogen Normal (Normal)
--- NOTE | 2018-03-24 00:50 | NURSING ---
dr scales notified of wbc 1. 2
[2018-03-24 01:01] LABS: ALB/GLOB Ratio 1.1 RATIO (0.9-2.4); AST(SGOT) 16 U/L (15-37); Alanine Aminotransfer ALT/SGPT 13 U/L (16-61); Albumin, Serum 3.7 g/dL (3.2-5.0); Alkaline Phosphatase 58 U/L (45-117); Anion Gap 11 (5-15); BUN 46 mg/dL (7-18); BUN/Creat Ratio 27.5 RATIO (10-20); Calcium,Total 8.2 mg/dL (8.5-10.1); Chloride 106 mmol/L (98-107); Creatinine, Serum 1.67 mg/dL (0.70-1.30); EST Glomerular Filtration Rate 44 mL/min (>60); Est Glom Filt Rate - Afr Amer 53 mL/min (>60); Globulin 3.3 g/dL (2.2-4.2); Glucose 106 mg/dL (74-106); Potassium 4.4 mmol/L (3.5-5.1); Sodium Level 143 mmol/L (136-145)
[2018-03-24 01:09] LABS: Basophil 4 % (0-1); Lymphocyte 22 % (19-41); Monocyte 2 % (0-10); Neutrophil-Band 6 % (0-5); Neutrophil-Segmented 66 % (47-70); Platelet Estimate ADEQUATE (ADEQ); Total Cells Counted 50 (MANUAL DIFF)
[2018-03-24 01:10] LABS: Anisocytosis 3+; Red Cell Morphology N CHROM NORMAL (NORM C&C); Schistocytes 1+; Tear Drop Cell 2+
[2018-03-24 01:11] LABS: Absolute Lymphocyte Count 0.26 X10^3/ul (0.83-4.51); Absolute Neutrophil Count 0.9 X10^3/uL (2.0-7.7); Lymphocyte # 0.26 X10^3/ul (4.0); NRBC Flagged by Analyzer 2.7 % (0-5); Neutrophil # 0.86 X10^3/uL (2.7-7.7)
[2018-03-24 01:12] LABS: Absolute Nucleated RBC Count 0.03 10^3/uL (0-5)
--- NOTE | 2018-03-24 01:43 | PCM.HP.STD ---
Problem List (1) Neutropenic fever Status: Acute (2) Myelofibrosis Status: Chronic (3) Pancytopenia Status: Chronic (4) CHF (congestive heart failure) Status: Chronic History of Present Illness Date of Admission: 03/24/18 Chief Complaint: Fever and fatigue ?1 day. The patient is a 67 year old M with a significant history of myelofibrosis on Jakafi; gout; hypothyroidism after thyroidectomy for multinodular goiter; congestive heart failure and hyperlipidemia who presents with 1 day history of fever and fatigue. He reports he reports that he has been more tired and weak than previous. His temperature at home was 100.9 and he took tylenol. On presentation his temperature was 99.5. Past Medical History Past Medical History (Chronic Problems): Chronic Problems (Last Reviewed 03/24/18 @ 02:34 by Lupillo Marie MD) Essential thrombocytosis (Chronic) Leukopenia (Chronic) Myelofibrosis (Chronic) Anemia (Chronic) Pancytopenia (Chronic) CHF (congestive heart failure) (Chronic) Splenomegaly (Chronic) Medical History: Medical History (Last Reviewed 03/24/18 @ 02:34 by Lupillo Marie MD) CHF (congestive heart failure) I50.9 Heart disease I51.9 Hyperlipidemia E78.5 Myeloproliferative neoplasm D47.1 Thrombocytopenia D69.6 Thyroid disease E07.9 Allergies pseudoephedrine [From Sudafed] Adverse Reaction (Severe, Verified 03/23/18 21:42) Itching FEVER Home Medications: Ambulatory Orders Medication Instructions Recorded Allopurinol [Zyloprim] 300 mg PO DAILY 02/04/18 Atorvastatin Calcium [Lipitor] 10 mg PO QHS 02/04/18 Doxazosin Mesylate [Cardura] 4 mg PO QHS 02/04/18 Finasteride [Proscar] 5 mg PO DAILY 02/04/18 Furosemide [Lasix] 40 mg PO DAILY 02/04/18 Gemfibrozil [Lopid] 600 mg PO BIDAC 02/04/18 Levothyroxine [Synthroid] 175 mcg PO DAILY 02/04/18 Sotalol Hydrochloride [Betapace 80 mg PO BID 02/04/18 (Beta Wally)] Ruxolitinib Phosphate [Jakafi] 15 mg PO X1 03/17/18 Surgical History: Surgical History (Last Reviewed 09/06/18 @ 02:34 by Lupillo Marie MD) H/O cardiac catheterization Z98.890 H/O prostate biopsy Z98.890 History of bone marrow biopsy Z98.890 History of thyroidectomy E89.0 Lives: Spouse/ Significant Other Smoking Status: Former smoker Tobacco Use: Non-smoker Alcohol: Occasional - *Family History Maternal Family History: Family History (Last Updated 03/24/18 @ 02:35 by Lupillo Marie MD) Mother Heart disease Dementia Father COPD (chronic obstructive pulmonary disease) Review of Systems Constitutional: Reports: Fever, Weakness, Fatigue. Denies: Weight Change Eyes: Denies: Blurred vision, Pain HEENT: Reports: Difficulty Hearing, Nasal Congestion - chronic Cardiovascular: Denies: Chest Pain, Palpitations Respiratory: Denies: Cough, Shortness of breath at rest, Sputum production Gastrointestinal: Denies: Abdominal Pain, Nausea, Vomiting Genitourinary: Denies: Dysuria Musculoskeletal: Denies: Joint Pain, Joint Tenderness Skin: Denies: Rash, Wounds Neurological: Denies: Numbness, Tingling, Focal weakness Psychiatric: Denies: Anxiety, Depression, Homicidal Ideations, Suicidal Ideations Hematologic/ Lymphatic: Denies: Easy Bruising, Easy Bleeding VTE Information - Inpt Only VTE Present on Admission: No VTE Mechan Device Prophylaxis: None VTE Pharm Prophylaxis ordered?: Yes Patient Problems: Active and Suspected Problems (Last Reviewed 03/24/18 @ 02:34 by Lupillo Marie MD) Neutropenic fever (Acute) - Physical Exam General: Alert, Oriented x3, Cooperative HEENT: Atraumatic, PERRLA, EOMI, Normocephalic Neck: Supple, No JVD, Negative Carotid Bruits Lungs: Clear to auscultation, Normal air movement Cardiovascular: Regular rate, No murmurs Abdomen: Bowel Sounds Present, Soft, Non Tender Extremities: No edema, Capillary Refill Less than 3 Seconds Skin: No rashes, No breakdown, - - Pale Musculoskeletal: No Tenderness to Palpation of Joints or Extremities Neurological: Cranial nerves II-XII grossly intact Psych/Mental Status: Normal Affect, Appropriate Vital Signs Temp Pulse Resp BP Pulse Ox 99.5 F H 75 16 126/58 H 96 03/23/18 21:35 03/24/18 01:12 03/24/18 01:12 03/24/18 01:12 03/24/18 01:12 Oxygen Delivery Method Room Air Weight: 89.8 kg Body Mass Index (BMI) 29.2 Laboratory Tests Past 24 Hrs 03/23/18 03/23/18 03/23/18 23:45 23:45 23:45 WBC 1.2 L* RBC 3.02 L Hgb 8.2 L Hct 26.8 L MCV 88.7 MCH 27.2 MCHC 30.6 L RDW 20.3 H RDW Differential 65.0 H Plt Count 123 L Neut % (Auto) Not Reportable Absolute Neuts (auto) 0.9 L Absolute Lymphs (auto) 0.26 L Total Counted 50 Neutrophils % (Manual) 66 Band Neutrophils % 6 H Lymphocytes % (Manual) 22 Monocytes % (Manual) 2 Basophils % (Manual) 4 H Nucleated RBC % 2.7 Diff Path Review May foll Platelet Estimate ADEQUATE RBC Morphology N CHROM Anisocytosis 3+ Tear Drop Cells 2+ Schistocytes 1+ Absolute Retic 0.03 Sodium 143 Potassium 4.4 Chloride 106 Carbon Dioxide 26.0 Anion Gap 11 BUN 46 H Creatinine 1.67 H Estim Creat Clear Calc 44.10 Est GFR (MDRD) Af Amer 53 L Est GFR (MDRD) Non-Af 44 L BUN/Creatinine Ratio 27.5 H Glucose 106 Lactic Acid 0.6 Calcium 8.2 L Total Bilirubin 0.40 AST 16 ALT 13 L Alkaline Phosphatase 58 Total Protein 7.0 Albumin 3.7 Globulin 3.3 Albumin/Globulin Ratio 1.1 Urine Color Urine Clarity Urine pH Ur Specific Mullens Urine Protein Urine Glucose (UA) Urine Ketones Urine Occult Blood Urine Nitrite Urine Bilirubin Urine Urobilinogen Ur Leukocyte Esterase Urine RBC Urine WBC Ur Squamous Epith Cells Urine Bacteria Urine Mucus 03/24/18 00:37 WBC RBC Hgb Hct MCV MCH MCHC RDW RDW Differential Plt Count Neut % (Auto) Absolute Neuts (auto) Absolute Lymphs (auto) Total Counted Neutrophils % (Manual) Band Neutrophils % Lymphocytes % (Manual) Monocytes % (Manual) Basophils % (Manual) Nucleated RBC % Diff Path Review Platelet Estimate RBC Morphology Anisocytosis Tear Drop Cells Schistocytes Absolute Retic Sodium Potassium Chloride Carbon Dioxide Anion Gap BUN Creatinine Estim Creat Clear Calc Est GFR (MDRD) Af Amer Est GFR (MDRD) Non-Af BUN/Creatinine Ratio Glucose Lactic Acid Calcium Total Bilirubin AST ALT Alkaline Phosphatase Total Protein Albumin Globulin Albumin/Globulin Ratio Urine Color Yellow Urine Clarity Clear Urine pH 6.0 Ur Specific Mullens 1.010 Urine Protein 15 H Urine Glucose (UA) Normal Urine Ketones Negative Urine Occult Blood Negative Urine Nitrite Negative Urine Bilirubin Negative Urine Urobilinogen Normal Ur Leukocyte Esterase Negative Urine RBC 0 SEEN Urine WBC 0 SEEN Ur Squamous Epith Cells 0 SEEN Urine Bacteria 0 SEEN Urine Mucus 0 SEEN Assessment/Plan All Active Problems (Last Reviewed 03/24/18 @ 02:34 by Lupillo Marie MD) Neutropenic fever (Acute) The patient is a 67 year old M with a significant history of myelofibrosis on Jakafi; gout; hypothyroidism after thyroidectomy for multinodular goiter; congestive heart failure and hyperlipidemia who presents with 1 day history of fever and fatigue; and found to have ANC of 900 consistent with neutropenic fever. Neutropenic fever ANC of 900 A temperature of 100.9 at home and after Tylenol came to 99.5 No obvious source of infection at this time. Lactic acid unremarkable Received Levaquin and meropenem at emergency department Meropenem continued. Urinalysis is unremarkable. Urine cultures are pending Blood cultures are pending. Respiratory panel ordered. CAREY Creatinine on admission was 1.67; baseline creatinine is 1.2 BUN/creatinine ratio is more than 20. Likely prerenal Lasix held Gentle IV hydration Avoid nephrotoxic's Pancytopenia Secondary to myelofibrosis Trend CBC The patient is a known patient of Dr. Payne for myelofibrosis. Oncology consult. Myelofibrosis Jakafi CHF Patient reported that he had congestive heart failure secondary to anemia. Patient is on Lasix Lasix held because of CAREY Gentle fluids for CAREY Clinical monitoring Hypothyroidism Synthroid continued Gout Allopurinol continued Hyperlipidemia Atorvastatin and gemfibrozil continued BPH Cardura and Proscar continued Chronic nasal congestion Patient reports that he takes Afrin at home. Afrin continued. DVT prophylaxis Lovenox. Code Visit Inpatient E&M: 01862 Init Hosp L3
--- NOTE | 2018-03-24 02:02 | ED.VISSUMM ---
- ER Visit Summary Date of Service: 03/24/18 Chief Complaint: [Fever] History of Present Illness: The patient is a 67 M [presents the emergency department complaint of fever that started last evening. Patient states that he just generally felt weak. He denied cough. He denied runny nose. He denies sore throat. He denies vomiting or diarrhea. He denies any abdominal pain. He denies urinary symptoms. Patient is currently receiving chemotherapy for myelofibrosis. Patient sees Dr. Payne for oncology.] Physical Examination: [HEENT-PERRLA, EOMI. Cranial nerves II through XII grossly intact. TMs clear. Mucous membranes moist. No adenopathy. Cardiovascular-regular rate and rhythm she has a 2 out of 6 systolic ejection murmur Lungs-clear to auscultation, chest wall stable without crepitus or subcu emphysema Abdomen-normoactive bowel sounds, soft, nontender, no rebound or rigidity, no peritoneal signs. Skin exam-no rashes Extremities-intact ?4, normal range of motion, normal pulses, atraumatic] Test Results: [Blood cultures ordered and pending. CBC with differential showed a white count of 1.2, hemoglobin 8.2, hematocrit 27, platelets 123. Chemistries unremarkable. Urinalysis was normal. Lactate was 0.6. Chest x-ray showed nothing acute.] Emergency Department Course and Treatment: [Patient was started empirically on imipenem and Levaquin] Treatment Plan: [Admit for IV antibiotics empirically until culture results return. Patient case discussed with hospitalist and .] Disposition: [Admit] Impression: [Neutropenic fever] This note was generated with [employer] dictation software. It may contain incorrect words, spelling, and punctuation that were not noted in review of the chart prior to signing ED Disposition - Plan for ED Patient: Chief Complaint: Fever Referrals: Diogenes Suarez DO [Primary Care Provider] -
[2018-03-24] MEDS: Doxazosin 4 MG Tablet PO ×2 (03:22→21:50)
[2018-03-24] MEDS: Atorvastatin Calcium 10 MG Tablet PO ×2 (03:22→21:50)
[2018-03-24] MEDS: Finasteride 5 MG Tablet PO ×2 (03:23→21:48)
[2018-03-24] MEDS: Levothyroxine 175 MCG Tablet PO (05:46)
[2018-03-24 06:43] LABS: Hematocrit 24.7 % (40-54); Hemoglobin 7.6 g/dl (13.0-16.5); Mean Corp Hgb Conc 30.8 g/gl (32-36); Mean Corpuscular Hgb 27.2 pg (27.0-32.0); Mean Corpuscular Volume 88.5 fL (80-94); Mean Platelet Vol. 11.2 fl (6.2-12.0); Platelet Count 109 K/mm3 (150-450); RBC Distribution Width CV 20.2 % (11.6-14.6); Red Blood Count 2.79 M/mm3 (4.6-6.2)
[2018-03-24 06:54] LABS: POSITIVE COUNT YES; POSITIVE DIFFERENTIAL YES; POSITIVE MORPHOLOGY YES; White Blood Count 0.9 K/mm3 (4.4-11.0)
[2018-03-24 07:01] LABS: Differential Indicated SCAN CRITERIA MET; Neutrophil % 66.8 % (47-70)
[2018-03-24 07:02] LABS: Absolute Lymphocyte Count 0.22 X10^3/ul (0.83-4.51); Absolute Neutrophil Count 0.6 X10^3/uL (2.0-7.7); Absolute Nucleated RBC Count 0.05 10^3/uL (0-5); Basophil# 0.01 X10^3/uL; Basophil% 1.1 % (0-1); Eosinophil# 0.01 X10^3/uL; Eosinophils% 1.1 % (0-5); Lymphocyte # 0.22 X10^3/ul (4.0); Lymphocyte % 24.4 % (19-41); Monocyte# 0.03 X10^3/uL; Monocyte% 3.3 % (0-10); NRBC Flagged by Analyzer 5.6 % (0-5)
[2018-03-24 07:04] LABS: Anisocytosis 3+; Hypochromasia 2+; Microcytosis 2+; Schistocytes RARE; Tear Drop Cell 2+
[2018-03-24 07:05] LABS: Differential Comment SCANNED
[2018-03-24] MEDS: Gemfibrozil 600 MG Tablet PO ×2 (08:06→16:49)
[2018-03-24] MEDS: Sotalol Hydrochloride 80 MG Tablet PO ×2 (08:06→21:46)
[2018-03-24] MEDS: Allopurinol 300 MG Tablet PO (08:06)
--- NOTE | 2018-03-24 11:10 | CASEMGMT ---
ROMÁN LANDRY Face to Face with patient for initial transition planning/care coordination assessment. RN CM introduced self and role at [facility]. Patient sitting in chair, alert and oriented. Patient willing to participate in assessment and is able to answer all questions appropriately. Care providers, pharmacy, and demographics verified. See link attached. Patient wishes to discharge home, denies need for home health at this time. Patient states he has no further needs or concerns at this time. CM to follow for discharge planning needs that may arise. Disposition Plan: Patient to discharge home with family support and follow-up plans in place. Susannah COLE, RN, CM
[2018-03-24 14:35] LABS: Pathologist Review Reviewed
[2018-03-24 14:39] LABS: Pathologist Review Reviewed
[2018-03-24] MEDS: Acetaminophen 325 MG Tablet 650 MG PO ×2 (14:40→20:31)
--- NOTE | 2018-03-24 14:48 | CASEMGMT ---
Social Work: Met with patient and as RN states that patient would like information on advance directives. Patient and interested in obtaining documents but does not want to fill them out at this time. This SW provided patient with advance directives packet with this SW business card. Patient and instructed to call this SW with any questions about the documents or if assistance is needed to complete the forms. SW to stay available for additional needs or questions. ALMITA Kincaid
--- NOTE | 2018-03-24 14:49 | PCM.PROGNOTE ---
<Regino Hendrix - Last Filed: 03/24/18 14:49> Patient Problems: Active and Suspected Problems (Last Reviewed 03/24/18 @ 02:34 by Lupillo Marie MD) Neutropenic fever (Acute) Subjective: patient complains of mild left sided spleen pain, states this is chronic. No cough, sob, congestion, dysuria, diarrhea, abdominal pain, n/v. still with intermittent fever - Physical Exam General: Alert, Oriented x3, Cooperative HEENT: Atraumatic, PERRLA, EOMI, Normocephalic Neck: Supple, No JVD, Negative Carotid Bruits Lungs: Clear to auscultation, Normal air movement Cardiovascular: Regular rate, No murmurs Abdomen: Bowel Sounds Present, Soft, Tender - LUQ mild Extremities: No edema, Capillary Refill Less than 3 Seconds Skin: No rashes, No breakdown Musculoskeletal: No Tenderness to Palpation of Joints or Extremities Neurological: Cranial nerves II-XII grossly intact Psych/Mental Status: Normal Affect, Appropriate, Alert and oriented to time, place, person, mood and affect Vital Signs Temp Pulse Resp BP Pulse Ox 101.2 F H 79 14 112/57 L 93 03/24/18 14:00 03/24/18 14:00 03/24/18 14:00 03/24/18 14:00 03/24/18 14:00 Oxygen Delivery Method Room Air Weight: 194 lb 7 oz Body Mass Index (BMI) 28.7 Intake and Output for Last 24 Hours 03/22/18 03/23/18 03/24/18 23:59 23:59 23:59 Intake Total 2006 Output Total 1250 / 1250 Balance 757 / 757 Microbiology Past 72 Hours 03/24/18 09:49 Respiratory Panel (PCR) - Final Mucosa - Nasopharyngeal Laboratory Tests Past 24 Hrs 03/24/18 05:25 WBC 0.9 L* RBC 2.79 L Hgb 7.6 L Hct 24.7 L MCV 88.5 MCH 27.2 MCHC 30.8 L RDW 20.2 H RDW Differential 65.0 H Plt Count 109 L MPV 11.2 Immature Gran % (Auto) 3.300 H Neut % (Auto) 66.8 Lymph % (Auto) 24.4 [place] % (Auto) 3.3 Eos % (Auto) 1.1 Baso % (Auto) 1.1 H Absolute Neuts (auto) 0.6 L Absolute Lymphs (auto) 0.22 L Total Counted Not Reportable Nucleated RBC % 5.6 H Differential Comment SCANNED Diff Path Review Reviewed Hypochromasia 2+ Anisocytosis 3+ Microcytosis 2+ Tear Drop Cells 2+ Schistocytes RARE Absolute Retic 0.05 Medical Necessity - Tobacco Use Smoking Status: Former smoker Tobacco Use: Non-smoker Assessment/Plan All Active Problems (Last Reviewed 03/24/18 @ 02:34 by Lupillo Marie MD) Neutropenic fever (Acute) 1. 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 Mild LUQ pain but this is chronic. No signs of infectious etiology. Continue meropenem. Last temp 101.2. 2. Pancytopenia - c/s oncology. Pt of Dr. Payne. DC lovenox. 3. CRAEY - repeat BMP in AM. 4. HLD - statin 5. Chronic CHF - does not appear to be in acute exacerbation 6. Hypothyroidism - continue Synthroid. DVT ppx: SCDs DC planning: PTOT, pending recovery of ANC, resolution of fever. This patient was seen by Regino Hendrix PA-C under the supervision of Doctor Johann. <Miguel Wills - Last Filed: 03/24/18 17:35> Subjective: Patient has bone marrow biopsy proven myelofibrosis about 3 years ago with massive splenomegaly. He denies any recent URI or LRI symptoms including shortness of breath, cough, congestion or lower urinary tract symptoms as mentioned above. - Physical Exam Abdomen: Soft, Distended, Splenomegaly, Tender Vital Signs Temp Pulse Resp BP Pulse Ox 99.2 F H 79 14 112/57 L 93 03/24/18 16:45 03/24/18 14:00 03/24/18 14:00 03/24/18 14:00 03/24/18 14:00 Oxygen Delivery Method Room Air Weight: 194 lb 7 oz Body Mass Index (BMI) 28.7 Intake and Output for Last 24 Hours 03/22/18 03/23/18 03/24/18 23:59 23:59 23:59 Intake Total 2868 / 2868 Output Total 1800 / 1800 Balance 1068 / 1068 Microbiology Past 72 Hours 03/24/18 09:49 Respiratory Panel (PCR) - Final Mucosa - Nasopharyngeal Laboratory Tests Past 24 Hrs 03/24/18 05:25 WBC 0.9 L* RBC 2.79 L Hgb 7.6 L Hct 24.7 L MCV 88.5 MCH 27.2 MCHC 30.8 L RDW 20.2 H RDW Differential 65.0 H Plt Count 109 L MPV 11.2 Immature Gran % (Auto) 3.300 H Neut % (Auto) 66.8 Lymph % (Auto) 24.4 [place] % (Auto) 3.3 Eos % (Auto) 1.1 Baso % (Auto) 1.1 H Absolute Neuts (auto) 0.6 L Absolute Lymphs (auto) 0.22 L Total Counted Not Reportable Nucleated RBC % 5.6 H Differential Comment SCANNED Diff Path Review Reviewed Hypochromasia 2+ Anisocytosis 3+ Microcytosis 2+ Tear Drop Cells 2+ Schistocytes RARE Absolute Retic 0.05 Assessment/Plan This patient was seen in conjunction with Regino DAY. I have independently interviewed and examined the patient and reviewed pertinent history, examination findings, laboratory and plan of management. I have reviewed the note and agree with the documented findings with the few additional points. In brief, patient is admitted for neutropenic fever with history of myelofibrosis, biopsy-proven about 3 years ago. There is concern that there may be malignant transformation of myelofibrosis with possible leukemia or other cancer as per oncologistKerry. Dr. Payne saw the patient and discussed with him. On broad-spectrum IV antibiotic meropenem. Neupogen ordered. I have discussed my assessment with Regino DAY and orders have been reviewed.
--- NOTE | 2018-03-24 17:58 | NURSING ---
GRANIX JUST RECEIVED FROM PHARMACY
[2018-03-24] MEDS: TBO-FILGRASTIM 300 MCG/0.5 ML ML SC (18:09)
--- NOTE | 2018-03-24 19:35 | ONC.CONS.INP ---
Consult Referring Physician: Dr. Wills Consult Results: Neutropenic fever, Myelofibrosis. 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 He has been treated with Hydrea, anagrelide until April 2009 when it was stopped. Bone marrow biopsy on December 02, 2015 showed mild evidence of myelofibrosis. He developed progressive neutropenia and anemia with massive splenomegaly so was started on Jakafi. He developed severe neutropenia, anemia and thrombocytopenia so currently on 15 mg every 3 days. He developed fever over the last few days and now admitted to the hospital on broad-spectrum antibiotics. He has declined repeat bone marrow biopsy in the last few months. Past Medical History: Chronic Problems (Last Reviewed 03/24/18 @ 02:34 by Lupillo Marie MD) Essential thrombocytosis (Chronic) Leukopenia (Chronic) Myelofibrosis (Chronic) Anemia (Chronic) Pancytopenia (Chronic) CHF (congestive heart failure) (Chronic) Splenomegaly (Chronic) Past Medical/Surgical History: Past Medical History - Most Recent Inpatient Visit Past Medical History Start: 03/24/18 02:30 Text: Status: Complete Freq: ONCE Protocol: Document 03/24/18 02:30 JIMI (Rec: 03/24/18 02:39 CLK [id number]) BMI Required to complete PMH What is Patient's BMI 28.7 Past Medical History Unable History Recalled No Query Text:Pt Unable/Family Not Present Neurologic Medical History Hx Stroke/TIA No Hx Dementia/Alzheimer's No Hx Parkinson's Disease No Hx Seizures No Hx Multiple Sclerosis No Hx Migraines No Cardiac Medical History VTE Present on Admission No Hx of Deep Vein Thrombosis/VTE/PE No Hx Hypertension No Hx Chest Pain/Angina No Hx Heart Attack No Hx Cardiac Surgery/Stents/Etc. No Hx Heart Failure Yes Hx Pacemaker/AICD No Hx Irregular Heartbeat and/or Afib Yes Hx Anticoagulant Therapy Yes: baby ASA Query Text:(Coumadin, Aspirin, Plavix, Xarelto, etc.) Hx Pain in Legs when Walking/Leg Cramps No Respiratory Medical History Hx COPD No Hx Emphysema No Hx Smoking Yes Smoking Status Former smoker Hx Tobacco Use in last 12 months No Hx Sleep Apnea No Do you snore loudly (louder than talking No or can be heard through closed doors)? Do you often feel tired/ fatigued/ No sleepy during daytime? Has anyone observed you stop breathing No during sleep? STOP Results Negative GI Medical History Hx Ulcer No Hx Hepatitis No Hx Cirrhosis No Hx GI Bleed No Hx Unplanned Weight Loss No Genitourinary Medical History Indwelling Catheter in Place on Arrival/ No Admission Hx Renal Disease No Hx Dialysis No Musculoskeletal History Hx Arthritis No Hx Rheumatoid Arthritis No Endocrine Medical History Hx Diabetes No Hx Thyroid Disease Yes: thyroid removed in 2003 Hematologic Medical History Hx of Blood Transfusion Yes Hx of Transfusion in last 3 Months Yes Date of Last Transfusion (if within last January 3 months) Ever experience any problems with No transfusion(s)? Hx of Preganancy in last 3 Months N/A Nurse Filling Out Transfusion & CKELLY Questions: Date: 03/24/18 Time: 02:39 Psycho/Social Medical History Hx Depression No Hx Anxiety No Hx Behavior Disorder No Hx Alcohol Use Yes: socially- rarely Hx Substance Use No Other Medical History Hx Blood Disorders Yes: myleofibrosis Hx Anemia Yes Hx Cancer Yes Hx Drug Resistant Organism No Wound/Pressure Injury Present on Arrival No /Admission Query Text:If yes, chart assessment in Shift/Clinical Findings Central Line/PICC/VAD Present on Arrival No /Admission Antibiotics within last 7 days? No Methicillin Resistant Staphylococcus aureus Screening Active MRSA No Risk for Readmission Number of Risk Factors 6 At Risk for Readmission Patient is At Risk For Readmission Patient is eligible for Call Back Y Past Medical History (Last Reviewed 03/24/18 @ 02:34 by Lupillo Marie MD) CHF (congestive heart failure) (Acute) Heart disease (Acute) Hyperlipidemia (Acute) Myeloproliferative neoplasm (Acute) Thrombocytopenia (Acute) Thyroid disease (Acute) Past Surgical History (Last Reviewed 03/24/18 @ 02:34 by Lupillo Marie MD) H/O cardiac catheterization (Acute) H/O prostate biopsy (Acute) History of bone marrow biopsy (Acute) History of thyroidectomy (Acute) Maternal Family History: Family History (Last Updated 03/24/18 @ 02:35 by Lupillo Marie MD) Mother Heart disease Dementia Father COPD (chronic obstructive pulmonary disease) - Social History Lives: Spouse/ Significant Other Smoking Status: Former smoker Tobacco Use: Non-smoker Alcohol: Occasional Allergies/Adverse Reactions: Allergy/AdvReac Type Severity Reaction Status Date / Time pseudoephedrine AdvReac Severe Itching Verified 03/23/18 21:42 [From [facility]] Review of Systems Constitutional:: Reports: Fatigue, Fever Cardiovascular:: Denies: Chest pain, Palpitations, Dyspnea on exertion, Orthopnea, PND, Shortness of breath Respiratory: Denies: Cough, Hemoptysis, Shortness of Breath, Wheezing Gastrointestinal:: Denies: Abdominal pain, Nausea, Vomiting, Diarrhea, Constipation, Hematochezia Genitourinary: Denies: Dysuria, Hematuria, 15, Flank pain Musculoskeletal:: Denies: Back pain, Myalgia, Arthralgia Skin: Denies: Rash, Skin Changes, Wounds Neurological:: Denies: Headache, Dizziness, Visual changes, Tinnitus, Hearing loss Psychiatric: Denies: Anxiety, Depression, Homicidal Ideations, Suicidal Ideations Vital Signs Height 5 ft 9 in Weight: 88.2 kg Weight in Pounds 194.4 lbs Pulse Ox 93 Temperature 99.2 F Pulse Rate 79 Respiratory Rate 14 Blood Pressure 112/57 Blood Pressure Position Semi-Fowlers - Physical Exam General: Alert, Oriented x3, No apparent distress HEENT: Atraumatic, PERRLA, EOMI, Normocephalic Oropharynx:: Dry mucosa Neck:: Supple, Trachea midline. Negative for: JVD, bilateral Cardiac:: Regular rate, Regular rhythm, Normal S1, Normal S2. Negative for: Murmur Lungs: Clear to auscultation, Excusion symmetrical. Negative for: Rhonchi, Wheezes Abdomen:: Splenomegaly - spleen at below umbilical level. Laboratory Data: Microbiology 03/24/18 09:49 Respiratory Panel (PCR) - Final Mucosa - Nasopharyngeal Laboratory Tests 03/24/18 Range/Units 05:25 WBC 0.9 L* (4.4-11.0) K/mm3 RBC 2.79 L (4.6-6.2) M/mm3 Hgb 7.6 L (13.0-16.5) g/dl Hct 24.7 L (40-54) % MCV 88.5 (80-94) fL MCH 27.2 (27.0-32.0) pg MCHC 30.8 L (32-36) g/gl RDW 20.2 H (11.6-14.6) % RDW Differential 65.0 H (35.1-43.9) fl Plt Count 109 L (150-450) K/mm3 MPV 11.2 (6.2-12.0) fl Immature Gran % (Auto) 3.300 H (0.0-0.9) % Neut % (Auto) 66.8 (47-70) % Lymph % (Auto) 24.4 (19-41) % [place] % (Auto) 3.3 (0-10) % Eos % (Auto) 1.1 (0-5) % Baso % (Auto) 1.1 H (0-1) % Absolute Neuts (auto) 0.6 L (2.0-7.7) X10^3/uL Absolute Lymphs (auto) 0.22 L (0.83-4.51) X10^3/ul Total Counted Not Reportable Nucleated RBC % 5.6 H (0-5) % Differential Comment SCANNED Diff Path Review Reviewed Hypochromasia 2+ Anisocytosis 3+ Microcytosis 2+ Tear Drop Cells 2+ Schistocytes RARE Absolute Retic 0.05 (0-5) 10^3/uL Diagnostic Data: Diagnostic Data Chest X-Ray 03/23/18 23:35 IMPRESSION: No acute pulmonary findings. Electronically Signed: Lloyd Emerson MD at 0:03 EDT Tel , Service support , Assessment and Plan Post essential thrombocythemia myelofibrosis with cytopenias. Massive splenomegaly. Now admitted with neutropenic fever, on broad-spectrum antibiotics. Pt will need repeat bone marrow biopsy to rule out leukemia and consider splenectomy. Suggestion is to continue broad spectrum antibiotics. If clinically stable, bone marrow aspiration and biopsy can be done. Medications: Medications Added to Medication List This Visit Category Date Time Status Acetaminophen [Tylenol] Med 03/24/18 14:21 Active 650 mg PO Q6H PRN PRN Atorvastatin Calcium [Lipitor] Med 03/24/18 22:00 Active 10 mg PO QHS Doxazosin Mesylate [Cardura] Med 03/24/18 22:00 Active 4 mg PO QHS Finasteride [Proscar] Med 03/24/18 22:00 Active 5 mg PO DAILY@2200 Ruxolitinib Phosphate [Jakafi] Med 03/25/18 10:00 Active 15 mg PO Q3D Primary Care Provider: Diogenes Suarez Referring Provider: - Problem List (1) Neutropenic fever Status: Acute (2) Myelofibrosis Status: Chronic Code Visit Office Visits / Consults: [id number] IP Consult L5
[2018-03-25] VITALS (15 sets, daily range): BP systolic 96–127; BP diastolic 45–82; PULSE 64–96; RESP 14–18; TEMP 36.5–38.2; O2SAT 92–98
[2018-03-25] MEDS: 0.9% Normal Saline 1,000 ML 150 ML IV (02:59)
[2018-03-25] MEDS: 0.9% NaCl Peripheral Flush Adult/Peds IV ×2 (02:59→10:18)
[2018-03-25] MEDS: Levothyroxine 175 MCG Tablet PO (05:40)
[2018-03-25] MEDS: Acetaminophen 325 MG Tablet 650 MG PO ×3 (05:40→22:17)
[2018-03-25 06:34] LABS: Anion Gap 9 (5-15); BUN 29 mg/dL (7-18); BUN/Creat Ratio 23.2 RATIO (10-20); Calcium,Total 7.4 mg/dL (8.5-10.1); Chloride 109 mmol/L (98-107); Creatinine, Serum 1.25 mg/dL (0.70-1.30); EST Glomerular Filtration Rate 62 mL/min (>60); Est Glom Filt Rate - Afr Amer 74 mL/min (>60); Estimated Creatinine Clearance 58.92 ml/min; Glucose 104 mg/dL (74-106); Sodium Level 142 mmol/L (136-145)
[2018-03-25 06:54] LABS: Absolute Lymphocyte Count 0.29 X10^3/ul (0.83-4.51); Absolute Neutrophil Count 0.9 X10^3/uL (2.0-7.7); Basophil# 0.02 X10^3/uL; Basophil% 1.5 % (0-1); Hematocrit 20.9 % (40-54); Hemoglobin 6.4 g/dl (13.0-16.5); Lymphocyte # 0.29 X10^3/ul (4.0); Lymphocyte % 22.1 % (19-41); Mean Corp Hgb Conc 30.6 g/gl (32-36); Mean Corpuscular Hgb 26.9 pg (27.0-32.0); Mean Corpuscular Volume 87.8 fL (80-94); Monocyte# 0.07 X10^3/uL; Monocyte% 5.3 % (0-10); Neutrophil # 0.93 X10^3/uL (2.7-7.7); Neutrophil % 71.1 % (47-70); Platelet Count 84 K/mm3 (150-450); RBC Distribution Width CV 19.9 % (11.6-14.6); Red Blood Count 2.38 M/mm3 (4.6-6.2)
[2018-03-25 07:30] LABS: Differential Indicated SCAN CRITERIA MET; POSITIVE COUNT YES; POSITIVE DIFFERENTIAL YES; POSITIVE MORPHOLOGY YES; White Blood Count 1.3 K/mm3 (4.4-11.0)
[2018-03-25 07:33] LABS: Differential Comment SCANNED; Platelet Estimate MOD DEC (ADEQ)
[2018-03-25] MEDS: Sotalol Hydrochloride 80 MG Tablet PO ×2 (08:17→22:18)
[2018-03-25] MEDS: Allopurinol 300 MG Tablet PO (08:17)
[2018-03-25] MEDS: Gemfibrozil 600 MG Tablet PO ×2 (08:17→17:14)
[2018-03-25 11:20] LABS: Pathologist Review Reviewed
--- NOTE | 2018-03-25 13:22 | PCM.PROGNOTE ---
<Regino Hendrix - Last Filed: 03/25/18 13:22> Patient Problems: Active and Suspected Problems (Last Reviewed 03/24/18 @ 02:34 by Lupillo Marie MD) Neutropenic fever (Acute) Subjective: No subjective fever or chills. Last recorded fever 100.6 this AM about 0545. Denies weakness, dizziness, LH, sob, cp/pressure. No cough/sob. No nausea vomiting or diarrhea. - Physical Exam General: Alert, Oriented x3, Cooperative HEENT: Atraumatic, PERRLA, EOMI, Normocephalic Neck: Supple, No JVD, Negative Carotid Bruits Lungs: Clear to auscultation, Normal air movement Cardiovascular: Regular rate, No murmurs Abdomen: Bowel Sounds Present, Soft, Non Tender Extremities: No edema, Capillary Refill Less than 3 Seconds Skin: No rashes, No breakdown Musculoskeletal: No Tenderness to Palpation of Joints or Extremities Neurological: Cranial nerves II-XII grossly intact Psych/Mental Status: Normal Affect, Appropriate, Alert and oriented to time, place, person, mood and affect Vital Signs Temp Pulse Resp BP Pulse Ox 98.9 F 89 16 105/54 L 97 03/25/18 08:00 03/25/18 08:00 03/25/18 08:00 03/25/18 08:00 03/25/18 08:00 Oxygen Delivery Method Room Air Weight: 201 lb 4.513 oz Body Mass Index (BMI) 28.7 Intake and Output for Last 24 Hours 03/23/18 03/24/18 03/25/18 23:59 23:59 23:59 Intake Total 2868 / 2868 2834 / 2834 Output Total 1800 / 1800 1150 / 1150 Balance 1068 / 1068 1684 / 1684 Microbiology Past 72 Hours 03/24/18 09:49 Respiratory Panel (PCR) - Final Mucosa - Nasopharyngeal Laboratory Tests Past 24 Hrs 03/24/18 03/25/18 03/25/18 05:25 05:15 05:15 WBC 1.3 L* RBC 2.38 L Hgb 6.4 L Hct 20.9 L MCV 87.8 MCH 26.9 L MCHC 30.6 L RDW 19.9 H RDW Differential 64.0 H Plt Count 84 L MPV TNP Immature Gran % (Auto) 0.000 Neut % (Auto) 71.1 H Lymph % (Auto) 22.1 [place] % (Auto) 5.3 Eos % (Auto) 0.0 Baso % (Auto) 1.5 H Absolute Neuts (auto) 0.9 L Absolute Lymphs (auto) 0.29 L Total Counted Not Reportable Differential Comment SCANNED Diff Path Review Reviewed Reviewed Platelet Estimate MOD DEC Sodium 142 Potassium 4.0 Chloride 109 H Carbon Dioxide 24.0 Anion Gap 9 BUN 29 H Creatinine 1.25 Estim Creat Clear Calc 58.92 Est GFR (MDRD) Af Amer 74 Est GFR (MDRD) Non-Af 62 BUN/Creatinine Ratio 23.2 H Glucose 104 Calcium 7.4 L Blood Type Antibody Screen Crossmatch 03/25/18 09:10 WBC RBC Hgb Hct MCV MCH MCHC RDW RDW Differential Plt Count MPV Immature Gran % (Auto) Neut % (Auto) Lymph % (Auto) [place] % (Auto) Eos % (Auto) Baso % (Auto) Absolute Neuts (auto) Absolute Lymphs (auto) Total Counted Differential Comment Diff Path Review Platelet Estimate Sodium Potassium Chloride Carbon Dioxide Anion Gap BUN Creatinine Estim Creat Clear Calc Est GFR (MDRD) Af Amer Est GFR (MDRD) Non-Af BUN/Creatinine Ratio Glucose Calcium Blood Type B POSITIVE Antibody Screen NEGATIVE Crossmatch See Detail Medical Necessity - Tobacco Use Smoking Status: Former smoker Tobacco Use: Non-smoker Assessment/Plan All Active Problems (Last Reviewed 03/24/18 @ 02:34 by Lupillo Marie MD) Neutropenic fever (Acute) 1. 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 Mild LUQ pain but this is chronic. No signs of infectious etiology. Continue meropenem. Last fever this AM. Resp panel neg. urine cx neg. Blood cx pending. -Needs outpatient bone bx - concern for conversion to leukemia. -may need splenectomy 2. Pancytopenia - c/s oncology. Pt of Dr. Payne. WBC and ANC improved mildly. -granix -2 units prbc 3. CAREY - resolved 4. HLD - statin 5. Chronic CHF - does not appear to be in acute exacerbation 6. Hypothyroidism - continue Synthroid. DVT ppx: SCDs DC planning: PTOT, pending recovery of ANC, resolution of fevers. This patient was seen by Regnio Hendrix PA-C under the supervision of Doctor Johann. <Miguel Wills - Last Filed: 03/25/18 18:11> Subjective: Fever 100.6 Fahrenheit mentioned above. Culture has so far been negative. Patient has history of sinusitis and probably this might be because of fever in view of pancytopenia with myelosuppression in immunocompromised host - Physical Exam General: Alert, Oriented x3, Cooperative HEENT: Atraumatic, PERRLA, EOMI, Normocephalic Neck: Supple, No JVD, Negative Carotid Bruits Lungs: Clear to auscultation, Normal air movement Cardiovascular: Regular rate, No murmurs Abdomen: Bowel Sounds Present, Soft, Non Tender, Distended, Splenomegaly Extremities: No edema, Capillary Refill Less than 3 Seconds Skin: No rashes, No breakdown Musculoskeletal: No Tenderness to Palpation of Joints or Extremities Neurological: Cranial nerves II-XII grossly intact Psych/Mental Status: Normal Affect, Appropriate Vital Signs Temp Pulse Resp BP Pulse Ox 98.4 F 64 18 100/59 L 95 03/25/18 16:33 03/25/18 16:33 03/25/18 16:33 03/25/18 16:33 03/25/18 16:33 Oxygen Delivery Method Room Air Weight: 201 lb 4.513 oz Body Mass Index (BMI) 28.7 Intake and Output for Last 24 Hours 03/23/18 03/24/18 03/25/18 23:59 23:59 23:59 Intake Total 2868 / 2868 4227 / 4227 Output Total 1800 / 1800 1500 / 1500 Balance 1068 / 1068 2727 / 2727 Microbiology Past 72 Hours 03/24/18 09:49 Respiratory Panel (PCR) - Final Mucosa - Nasopharyngeal Laboratory Tests Past 24 Hrs 03/25/18 03/25/18 03/25/18 05:15 05:15 09:10 WBC 1.3 L* RBC 2.38 L Hgb 6.4 L Hct 20.9 L MCV 87.8 MCH 26.9 L MCHC 30.6 L RDW 19.9 H RDW Differential 64.0 H Plt Count 84 L MPV TNP Immature Gran % (Auto) 0.000 Neut % (Auto) 71.1 H Lymph % (Auto) 22.1 [place] % (Auto) 5.3 Eos % (Auto) 0.0 Baso % (Auto) 1.5 H Absolute Neuts (auto) 0.9 L Absolute Lymphs (auto) 0.29 L Total Counted Not Reportable Differential Comment SCANNED Diff Path Review Reviewed Platelet Estimate MOD DEC Sodium 142 Potassium 4.0 Chloride 109 H Carbon Dioxide 24.0 Anion Gap 9 BUN 29 H Creatinine 1.25 Estim Creat Clear Calc 58.92 Est GFR (MDRD) Af Amer 74 Est GFR (MDRD) Non-Af 62 BUN/Creatinine Ratio 23.2 H Glucose 104 Calcium 7.4 L Blood Type B POSITIVE Antibody Screen NEGATIVE Crossmatch See Detail Assessment/Plan This patient was seen in conjunction with Regino DAY. I have independently interviewed and examined the patient and reviewed pertinent history, examination findings, laboratory and plan of management. I have reviewed the note and agree with the documented findings with the few additional points. In brief, patient is admitted for neutropenic fever with history of myelofibrosis, biopsy-proven about 3 years ago. There is concern that there may be malignant transformation of myelofibrosis with possible leukemia or other cancer as per oncologistKerry. Dr. Payne saw the patient and discussed with him. On broad-spectrum IV antibiotic meropenem. 1 dose of neupogen was given yesterday. Oncology does not advise further Neupogen as will be hard to differentiate from lymphoma. Respiratory panel and pancultures were negative so far I have discussed my assessment with Regino DAY and orders have been reviewed. Code Visit Inpatient E&M: 03106 Subs Hosp L3
[2018-03-25] MEDS: Finasteride 5 MG Tablet PO (22:17)
[2018-03-25] MEDS: Doxazosin 4 MG Tablet PO (22:18)
[2018-03-25] MEDS: Atorvastatin Calcium 10 MG Tablet PO (22:18)
[2018-03-26] VITALS (7 sets, daily range): BP systolic 93–116; BP diastolic 46–63; PULSE 55–75; RESP 16–20; TEMP 36.7–37.4; O2SAT 95–97
[2018-03-26] MEDS: Furosemide 40 MG/4 ML Vial IV (00:27)
[2018-03-26] MEDS: Levothyroxine 175 MCG Tablet PO (06:08)
[2018-03-26 07:37] LABS: Hematocrit 23.7 % (40-54); Hemoglobin 7.5 g/dl (13.0-16.5); Mean Corp Hgb Conc 31.6 g/gl (32-36); Mean Corpuscular Hgb 27.6 pg (27.0-32.0); Mean Corpuscular Volume 87.1 fL (80-94); POSITIVE COUNT YES; POSITIVE DIFFERENTIAL YES; POSITIVE MORPHOLOGY YES; Platelet Count 72 K/mm3 (150-450); RBC Distribution Width CV 18.8 % (11.6-14.6); RBC Distribution Width SD 59.8 fl (35.1-43.9); Red Blood Count 2.72 M/mm3 (4.6-6.2)
[2018-03-26 07:38] LABS: White Blood Count 0.9 K/mm3 (4.4-11.0)
[2018-03-26 08:04] LABS: Absolute Lymphocyte Count 0.23 X10^3/ul (0.83-4.51); Absolute Neutrophil Count 0.5 X10^3/uL (2.0-7.7); Basophil# 0.02 X10^3/uL; Basophil% 2.3 % (0-1); Lymphocyte # 0.23 X10^3/ul (4.0); Lymphocyte % 26.1 % (19-41); Monocyte# 0.07 X10^3/uL; Neutrophil # 0.47 X10^3/uL (2.7-7.7); Neutrophil % 53.4 % (47-70)
[2018-03-26 08:06] LABS: Anisocytosis 1+; Hypochromasia 1+; Platelet Estimate MOD DEC (ADEQ); Tear Drop Cell 1+
[2018-03-26] MEDS: Gemfibrozil 600 MG Tablet PO ×2 (08:18→19:12)
[2018-03-26] MEDS: Allopurinol 300 MG Tablet PO (08:19)
[2018-03-26] MEDS: Sotalol Hydrochloride 80 MG Tablet PO ×2 (10:42→21:52)
[2018-03-26] MEDS: Furosemide 40 MG Tablet PO (10:43)
--- NOTE | 2018-03-26 12:44 | PCM.PROGNOTE ---
<Regino Hendrix - Last Filed: 03/26/18 12:44> Patient Problems: Active and Suspected Problems (Last Reviewed 03/24/18 @ 02:34 by Lupillo Marie MD) Neutropenic fever (Acute) Subjective: Pt resting comfortably in chair at bedside. He has been ambulatory. He is not SOB at rest or with exertion. No dizziness/LH at rest or with exertion. He has no abdominal pain. No loose stools. No nausea/vomiting. Overall he feels well despite his poor counts. Last fever last evening. - Physical Exam General: Alert, Oriented x3, Cooperative HEENT: Atraumatic, PERRLA, EOMI, Normocephalic Neck: Supple, No JVD, Negative Carotid Bruits Lungs: Clear to auscultation, Normal air movement Cardiovascular: Regular rate, No murmurs Abdomen: Bowel Sounds Present, Soft, Non Tender Extremities: No edema, Capillary Refill Less than 3 Seconds Skin: No rashes, No breakdown Musculoskeletal: No Tenderness to Palpation of Joints or Extremities Neurological: Cranial nerves II-XII grossly intact Psych/Mental Status: Normal Affect, Appropriate, Alert and oriented to time, place, person, mood and affect Vital Signs Temp Pulse Resp BP Pulse Ox 98.9 F 60 18 95/47 L 95 03/26/18 08:27 03/26/18 09:00 03/26/18 08:27 03/26/18 08:27 03/26/18 08:27 Oxygen Delivery Method Room Air Weight: 200 lb 13.458 oz Body Mass Index (BMI) 28.7 Intake and Output for Last 24 Hours 03/24/18 03/25/18 03/26/18 23:59 23:59 23:59 Intake Total 2868 / 2868 5067 / 5067 658.3 / 658.3 Output Total 1800 / 1800 1650 / 1650 1550 / 1550 Balance 1068 / 1068 3417 / 3417 -891.7 / -891.7 Microbiology Past 72 Hours 03/24/18 09:49 Respiratory Panel (PCR) - Final Mucosa - Nasopharyngeal Laboratory Tests Past 24 Hrs 03/25/18 03/26/18 09:10 06:35 WBC 0.9 L* RBC 2.72 L Hgb 7.5 L Hct 23.7 L MCV 87.1 MCH 27.6 MCHC 31.6 L RDW 18.8 H RDW Differential 59.8 H Plt Count 72 L MPV TNP Immature Gran % (Auto) 10.200 H Neut % (Auto) 53.4 Lymph % (Auto) 26.1 [place] % (Auto) 8.0 Eos % (Auto) 0.0 Baso % (Auto) 2.3 H Absolute Neuts (auto) 0.5 L Absolute Lymphs (auto) 0.23 L Total Counted Not Reportable Diff Path Review May foll Platelet Estimate MOD DEC Hypochromasia 1+ Anisocytosis 1+ Tear Drop Cells 1+ Blood Type B POSITIVE Antibody Screen NEGATIVE Crossmatch See Detail Medical Necessity - Tobacco Use Smoking Status: Former smoker Tobacco Use: Non-smoker Assessment/Plan All Active Problems (Last Reviewed 03/24/18 @ 02:34 by Lupillo Marie MD) Neutropenic fever (Acute) 1. 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 still with intermittent fevers. No signs of infectious etiology. Continue meropenem. Last fever this AM. Resp panel neg. urine cx neg. Blood cx negative. -Needs outpatient bone bx - concern for conversion to leukemia. -may need splenectomy 2. Pancytopenia - c/s oncology. Pt of Dr. Payne. WBC and ANC improved mildly. -cannot give granix per oncology. -2 units prbc yesterday. 3. CAREY - resolved 4. HLD - statin 5. Chronic CHF - does not appear to be in acute exacerbation. 6. Hypothyroidism - continue Synthroid. DVT ppx: SCDs DC planning: PTOT, pending recovery of ANC, resolution of fevers. This patient was seen by Regino Hendrix PA-C under the supervision of Doctor Johann. <Miguel Wills - Last Filed: 03/26/18 15:31> Subjective: Patient does not have nausea vomiting. Patient had 100.1 Fahrenheit temperature last night. - Physical Exam General: Alert, Oriented x3, Cooperative HEENT: Atraumatic, PERRLA, EOMI, Normocephalic Neck: Supple, No JVD, Negative Carotid Bruits Lungs: Clear to auscultation, Normal air movement Cardiovascular: Regular rate, No murmurs Abdomen: Bowel Sounds Present, Soft, Non Tender, Distended, Splenomegaly Extremities: No edema, Capillary Refill Less than 3 Seconds Skin: No rashes, No breakdown Musculoskeletal: No Tenderness to Palpation of Joints or Extremities Neurological: Cranial nerves II-XII grossly intact Psych/Mental Status: Normal Affect, Appropriate Vital Signs Temp Pulse Resp BP Pulse Ox 99.4 F H 75 20 H 116/59 L 97 03/26/18 14:46 03/26/18 14:46 03/26/18 14:46 03/26/18 14:46 03/26/18 14:46 Oxygen Delivery Method Room Air Weight: 200 lb 13.458 oz Body Mass Index (BMI) 28.7 Intake and Output for Last 24 Hours 03/24/18 03/25/18 03/26/18 23:59 23:59 23:59 Intake Total 2868 / 2868 5067 / 5067 1310.3 / 1310.3 Output Total 1800 / 1800 1650 / 1650 2650 / 2650 Balance 1068 / 1068 3417 / 3417 -1339.7 / -1339.7 Microbiology Past 72 Hours 03/24/18 09:49 Respiratory Panel (PCR) - Final Mucosa - Nasopharyngeal Laboratory Tests Past 24 Hrs 03/25/18 03/26/18 09:10 06:35 WBC 0.9 L* RBC 2.72 L Hgb 7.5 L Hct 23.7 L MCV 87.1 MCH 27.6 MCHC 31.6 L RDW 18.8 H RDW Differential 59.8 H Plt Count 72 L MPV TNP Immature Gran % (Auto) 10.200 H Neut % (Auto) 53.4 Lymph % (Auto) 26.1 [place] % (Auto) 8.0 Eos % (Auto) 0.0 Baso % (Auto) 2.3 H Absolute Neuts (auto) 0.5 L Absolute Lymphs (auto) 0.23 L Total Counted Not Reportable Diff Path Review May foll Platelet Estimate MOD DEC Hypochromasia 1+ Anisocytosis 1+ Tear Drop Cells 1+ Blood Type B POSITIVE Antibody Screen NEGATIVE Crossmatch See Detail Assessment/Plan This patient was seen in conjunction with Regino DAY. I have independently interviewed and examined the patient and reviewed pertinent history, examination findings, laboratory and plan of management. I have reviewed the note and agree with the documented findings with the few additional points. In brief, patient is admitted for neutropenic fever with history of myelofibrosis, biopsy-proven about 3 years ago. There is concern that there may be malignant transformation of myelofibrosis with possible leukemia or other cancer as per oncologist, Kerry. Dr. Payne saw the patient and discussed with him. On broad-spectrum IV antibiotic meropenem. 1 dose of neupogen was given yesterday. Oncology does not advise further Neupogen as will be hard to differentiate from lymphoma. Respiratory panel and pancultures were negative so far I have discussed my assessment with Regino DAY and orders have been reviewed. Code Visit Inpatient E&M: 04149 Subs Hosp L3
[2018-03-26] MEDS: 0.9% NaCl Peripheral Flush Adult/Peds IV (14:18)
--- NOTE | 2018-03-26 15:17 | NURSING ---
PT TO X-RAY VIA [facility]
[2018-03-26] MEDS: Atorvastatin Calcium 10 MG Tablet PO (21:52)
[2018-03-26] MEDS: Doxazosin 4 MG Tablet PO (21:53)
[2018-03-26] MEDS: Finasteride 5 MG Tablet PO (21:53)
[2018-03-27 02:21] VITALS: BP 101/55; PULSE 68; RESP 14; TEMP 36.9; O2SAT 93
[2018-03-27] MEDS: Levothyroxine 175 MCG Tablet PO (06:45)
[2018-03-27 07:17] LABS: Absolute Lymphocyte Count 0.28 X10^3/ul (0.83-4.51); Absolute Neutrophil Count 0.4 X10^3/uL (2.0-7.7); Basophil# 0.01 X10^3/uL; Basophil% 1.2 % (0-1); Eosinophil# 0.02 X10^3/uL; Eosinophils% 2.4 % (0-5); Hematocrit 21.8 % (40-54); Hemoglobin 6.9 g/dl (13.0-16.5); Lymphocyte # 0.28 X10^3/ul (4.0); Lymphocyte % 33.7 % (19-41); Mean Corp Hgb Conc 31.7 g/gl (32-36); Mean Corpuscular Hgb 27.7 pg (27.0-32.0); Mean Corpuscular Volume 87.6 fL (80-94); Monocyte# 0.08 X10^3/uL; Monocyte% 9.6 % (0-10); Neutrophil # 0.43 X10^3/uL (2.7-7.7); Neutrophil % 51.9 % (47-70); Platelet Count 64 K/mm3 (150-450); RBC Distribution Width CV 18.8 % (11.6-14.6); RBC Distribution Width SD 60.1 fl (35.1-43.9); Red Blood Count 2.49 M/mm3 (4.6-6.2); White Blood Count 0.8 K/mm3 (4.4-11.0)
[2018-03-27 07:23] LABS: Differential Indicated SCAN CRITERIA MET; POSITIVE COUNT YES; POSITIVE DIFFERENTIAL YES; POSITIVE MORPHOLOGY YES
[2018-03-27 08:00] LABS: Hypochromasia 1+; Platelet Estimate MOD DEC (ADEQ); Tear Drop Cell 2+
[2018-03-27 10:30] VITALS: BP 103/58; PULSE 78; RESP 18; TEMP 36.8; O2SAT 98
[2018-03-27] MEDS: Furosemide 40 MG Tablet PO (10:32)
[2018-03-27] MEDS: Gemfibrozil 600 MG Tablet PO ×2 (10:32→21:13)
[2018-03-27] MEDS: Allopurinol 300 MG Tablet PO (10:32)
[2018-03-27] MEDS: Sotalol Hydrochloride 80 MG Tablet PO ×2 (10:32→21:13)
--- NOTE | 2018-03-27 13:02 | PCM.PROGNOTE ---
<Regino Hendrix - Last Filed: 03/27/18 13:02> Patient Problems: Active and Suspected Problems (Last Reviewed 03/24/18 @ 02:34 by Lupillo Marie MD) Neutropenic fever (Acute) Subjective: Pt feels overall well, he is ambulating in the hallway without difficulty. He is not having chills, SOB, CP, cough, abdominal pain, nausea/vomiting/or diarrhea. His cell counts are not improving. Last fever 03/25/2018. - Physical Exam General: Alert, Oriented x3, Cooperative HEENT: Atraumatic, PERRLA, EOMI, Normocephalic Neck: Supple, No JVD, Negative Carotid Bruits Lungs: Clear to auscultation, Normal air movement Cardiovascular: Regular rate, No murmurs Abdomen: Bowel Sounds Present, Soft, Non Tender Extremities: No edema, Capillary Refill Less than 3 Seconds Skin: No rashes, No breakdown Musculoskeletal: No Tenderness to Palpation of Joints or Extremities Neurological: Cranial nerves II-XII grossly intact Psych/Mental Status: Normal Affect, Appropriate, Alert and oriented to time, place, person, mood and affect Vital Signs Temp Pulse Resp BP Pulse Ox 98.3 F 78 18 103/58 L 98 03/27/18 10:30 03/27/18 10:30 03/27/18 10:30 03/27/18 10:30 03/27/18 10:30 Oxygen Delivery Method Room Air Weight: 208 lb 1.862 oz Body Mass Index (BMI) 28.7 Intake and Output for Last 24 Hours 03/25/18 03/26/18 03/27/18 23:59 23:59 23:59 Intake Total 5067 / 5067 2082.3 / 2082.3 200 / 200 Output Total 1650 / 1650 3430 / 3430 750 / 750 Balance 3417 / 3417 -1347.7 / -1347.7 -550 / -550 Microbiology Past 72 Hours 03/26/18 17:55 C. difficile DNA Amplification - Final Stool 03/24/18 09:49 Respiratory Panel (PCR) - Final Mucosa - Nasopharyngeal Laboratory Tests Past 24 Hrs 03/27/18 05:40 WBC 0.8 L* RBC 2.49 L Hgb 6.9 L Hct 21.8 L MCV 87.6 MCH 27.7 MCHC 31.7 L RDW 18.8 H RDW Differential 60.1 H Plt Count 64 L Immature Gran % (Auto) 1.200 H Neut % (Auto) 51.9 Lymph % (Auto) 33.7 [place] % (Auto) 9.6 Eos % (Auto) 2.4 Baso % (Auto) 1.2 H Absolute Neuts (auto) 0.4 L Absolute Lymphs (auto) 0.28 L Total Counted Not Reportable Diff Path Review May foll Platelet Estimate MOD DEC Hypochromasia 1+ Tear Drop Cells 2+ Medical Necessity - Tobacco Use Smoking Status: Former smoker Tobacco Use: Non-smoker Assessment/Plan All Active Problems (Last Reviewed 03/24/18 @ 02:34 by Lupillo Marie MD) Neutropenic fever (Acute) 1. 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 No fever in over 24 hours. No signs of infectious etiology. Continue meropenem. Resp panel neg. urine cx neg. Blood cx negative. -Needs outpatient bone bx - concern for conversion to leukemia. -may need splenectomy 2. Pancytopenia - c/s oncology. Pt of Dr. Payne. -cannot give granix per oncology. -2 units prbc prior. -Defer further transfusions until patient evaluated by Oncology. 3. CAREY - resolved 4. HLD - statin 5. Chronic CHF - does not appear to be in acute exacerbation. 6. Hypothyroidism - continue Synthroid. DVT ppx: SCDs DC planning: cell counts are poor. Defer to oncology. This patient was seen by Regino Hendrix PA-C under the supervision of Doctor Johann. <Miguel Wills - Last Filed: 03/27/18 13:59> Subjective: Patient is walking comfortably on the hallway around the nursing station. No shortness of breath/dyspnea. No fever spikes. - Physical Exam General: Alert, Oriented x3, Cooperative HEENT: Atraumatic, PERRLA, EOMI, Normocephalic Neck: Supple, No JVD, Negative Carotid Bruits Lungs: Clear to auscultation, Normal air movement Cardiovascular: Regular rate, No murmurs Abdomen: Bowel Sounds Present, Soft, Non Tender, Distended - Mild abdominal protruding secondary to massive splenomegaly, Splenomegaly Extremities: No edema, Capillary Refill Less than 3 Seconds Skin: No rashes, No breakdown Musculoskeletal: No Tenderness to Palpation of Joints or Extremities Neurological: Cranial nerves II-XII grossly intact Psych/Mental Status: Normal Affect, Appropriate Vital Signs Temp Pulse Resp BP Pulse Ox 98.3 F 78 18 103/58 L 98 03/27/18 10:30 03/27/18 10:30 03/27/18 10:30 03/27/18 10:30 03/27/18 10:30 Oxygen Delivery Method Room Air Weight: 208 lb 1.862 oz Body Mass Index (BMI) 28.7 Intake and Output for Last 24 Hours 03/25/18 03/26/18 03/27/18 23:59 23:59 23:59 Intake Total 5067 / 5067 2082.3 / 2082.3 200 / 200 Output Total 1650 / 1650 3430 / 3430 750 / 750 Balance 3417 / 3417 -1347.7 / -1347.7 -550 / -550 Microbiology Past 72 Hours 03/26/18 17:55 C. difficile DNA Amplification - Final Stool 03/24/18 09:49 Respiratory Panel (PCR) - Final Mucosa - Nasopharyngeal Laboratory Tests Past 24 Hrs 03/27/18 05:40 WBC 0.8 L* RBC 2.49 L Hgb 6.9 L Hct 21.8 L MCV 87.6 MCH 27.7 MCHC 31.7 L RDW 18.8 H RDW Differential 60.1 H Plt Count 64 L Immature Gran % (Auto) 1.200 H Neut % (Auto) 51.9 Lymph % (Auto) 33.7 [place] % (Auto) 9.6 Eos % (Auto) 2.4 Baso % (Auto) 1.2 H Absolute Neuts (auto) 0.4 L Absolute Lymphs (auto) 0.28 L Total Counted Not Reportable Diff Path Review May foll Platelet Estimate MOD DEC Hypochromasia 1+ Tear Drop Cells 2+ Assessment/Plan This patient was seen in conjunction with Regino DAY. I have independently interviewed and examined the patient and reviewed pertinent history, examination findings, laboratory and plan of management. I have reviewed the note and agree with the documented findings with the few additional points. In brief, patient is admitted for neutropenic fever with history of myelofibrosis, biopsy-proven about 3 years ago. There is concern that there may be malignant transformation of myelofibrosis with possible leukemia or other cancer as per oncologistKerry. Dr. Payne saw the patient and discussed with him. On broad-spectrum IV antibiotic meropenem. 1 dose of neupogen was given. Oncology does not advise further Neupogen as will be hard to differentiate from lymphoma. Respiratory panel and pancultures were negative so far. The patient cell count is still low [place] 0.8 thousand, hemoglobin 6.9 thousand and platelet count 64,000. Will need further input from oncologist. Microbiology Past 72 Hours I have discussed my assessment with Regino DAY and orders have been reviewed. 03/26/18 17:55 Stool C. difficile DNA Amplification - Final 03/24/18 00:15 Blood Culture (Wb) - Anticubital Right Blood Culture - Preliminary No growth in 48 hours. 03/23/18 23:45 Blood Culture (Wb) - Anticubital Left Blood Culture - Preliminary No growth in 48 hours. 03/24/18 00:37 Urine, Clean Catch Urine Culture - Final Culture exhibits no growth. 03/24/18 09:49 Mucosa - Nasopharyngeal Respiratory Panel (PCR) - Final Laboratory Results 03/27/18 05:40: WBC 0.8 L*, RBC 2.49 L, Hgb 6.9 L, Hct 21.8 L, MCV 87.6, MCH 27.7, MCHC 31.7 L, RDW 18.8 H, RDW Differential 60.1 H, Plt Count 64 L, Immature Gran % (Auto) 1.200 H, Neut % (Auto) 51.9, Lymph % (Auto) 33.7, [place] % (Auto) 9.6, Eos % (Auto) 2.4, Baso % (Auto) 1.2 H, Absolute Neuts (auto) 0.4 L, Absolute Lymphs (auto) 0.28 L, Total Counted Not Reportable, Diff Path Review May foll, Platelet Estimate MOD DEC, Hypochromasia 1+, Tear Drop Cells 2+ Code Visit Inpatient E&M: 35823 Subs Hosp L3
[2018-03-27] MEDS: 0.9% NaCl Peripheral Flush Adult/Peds IV (13:39)
[2018-03-27 16:09] VITALS: BP 105/62; PULSE 74; RESP 18; TEMP 37; O2SAT 95
[2018-03-27] MEDS: Doxazosin 4 MG Tablet PO (21:13)
[2018-03-27] MEDS: Finasteride 5 MG Tablet PO (21:13)
[2018-03-27] MEDS: Atorvastatin Calcium 10 MG Tablet PO (21:14)
[2018-03-27 21:20] VITALS: BP 102/54; PULSE 68; RESP 15; TEMP 37.2; O2SAT 94
[2018-03-27 22:00] VITALS: PULSE 68; RESP 15; O2SAT 94
[2018-03-28 04:08] VITALS: BP 104/55; PULSE 69; RESP 15; TEMP 36.9; O2SAT 96
[2018-03-28] MEDS: Levothyroxine 175 MCG Tablet PO (06:32)
--- NOTE | 2018-03-28 09:10 | PCM.PN.HOSP ---
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 03/28/2018: Patient seen complains of feeling tired Objective: GENERAL: cooperative and in no apparent distress. HEENT: Clear conjunctiva, moist oral mucosa NECK; supple, normal thyroid, no distended JVD. CHEST: Clear to auscultation bilaterally, HEART: Regular S1 S2, no audible murmurs ABDOMEN: soft, non-tender, normoactive bowel sounds, RECTAL: deferred EXTREMITIES: No edema, no clubbing, no cyanosis. [employer] HELPER: Awake; no lateralizing signs. SKIN: No Rash Vitals/I&O's: Vital Signs Temp Pulse Resp BP Pulse Ox 98.5 F 69 15 104/55 L 96 03/28/18 04:08 03/28/18 04:08 03/28/18 04:08 03/28/18 04:08 03/28/18 04:08 Oxygen Delivery Method Room Air Weight: 88.8 kg Body Mass Index (BMI) 28.7 Intake and Output for Last 24 Hours 03/26/18 03/27/18 03/28/18 23:59 23:59 23:59 Intake Total 2082.3 / 2082.3 818 / 818 267 / 267 Output Total 3430 / 3430 2075 / 2075 400 / 400 Balance -1347.7 / -1347.7 -1257 / -1257 -133 / -133 Microbiology Past 72 Hours 03/26/18 17:55 Stool C. difficile DNA Amplification - Final Current Medications Acetaminophen (Tylenol) 650 mg PO Q6H PRN PRN PRN Reason: PAIN AND/OR FEVERS Last Admin: 03/25/18 22:17 Dose: 650 mg Allopurinol (Zyloprim) 300 mg PO DAILYCM [facility] Last Admin: 03/27/18 10:32 Dose: 300 mg Atorvastatin Calcium (Lipitor) 10 mg PO QHS [facility] Last Admin: 03/27/18 21:14 Dose: 10 mg Doxazosin Mesylate (Cardura) 4 mg PO QHS [facility] Last Admin: 03/27/18 21:13 Dose: 4 mg Finasteride (Proscar) 5 mg PO DAILY@2200 [facility] Last Admin: 03/27/18 21:13 Dose: 5 mg Furosemide (Lasix) 40 mg PO DAILY [facility] Last Admin: 03/27/18 10:32 Dose: 40 mg Gemfibrozil (Lopid) 600 mg PO BID [facility] Last Admin: 03/27/18 21:13 Dose: 600 mg Meropenem 1 gm/ Sodium (Chloride) 120 mls @ 33 mls/hr IV Q8 [facility] Last Admin: 03/28/18 06:31 Dose: 33 mls/hr Lactobacillus Acidophilus (Acidophilus) 1 tablet PO TID [facility] Last Admin: 03/28/18 06:32 Dose: 1 tablet Levothyroxine Sodium (Synthroid) 175 mcg PO DAILY@0600 [facility] Last Admin: 03/28/18 06:32 Dose: 175 mcg Magnesium Hydroxide (Milk Of Magnesia) 30 ml PO DAILY PRN PRN PRN Reason: Constipation Sodium Chloride () 5 - 30 ml IV UD PRN PRN Reason: SALINE FLUSH Last Admin: 03/27/18 13:39 Dose: 20 ml Sotalol HCl (Betapace (G)) 80 mg PO BID [facility] Last Admin: 03/27/18 21:13 Dose: 80 mg Medical Necessity - Tobacco Use Smoking Status: Former smoker Tobacco Use: Non-smoker Assessment/Plan All Active Problems (Last Reviewed 03/24/18 @ 02:34 by Lupillo Marie MD) Neutropenic fever (Acute) Patient is a 67 year old gentleman with 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 1. Acute febrile neutropenia: Admitted to regular nursing floor after cultures were obtained currently on meropenem cultures have remained negative to date 2. Secondary Myelofibrosis followed by oncology was on Jakafi prior to his admission 3. Massive splenomegaly attributed to patient myelofibrosis 4. 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 Acute kidney injury resolved 6. Chemo induced pancytopenia with anemia, thrombcytopenia and leukopenia the patient was transfused with 2 units PRBC on 03/27/2018 7. Chronic diastolic congestive heart failure stable 8. Dyslipidemia-patient is on statin therapy, continued at home dose 9. Hypothyroidism-patient is on levothyroxine home dose continued 10. DVT prophylaxis; SCDs Code Visit Inpatient E&M: 49464 Subs Hosp L2
[2018-03-28] MEDS: Allopurinol 300 MG Tablet PO (10:00)
[2018-03-28] MEDS: Furosemide 40 MG Tablet PO (10:00)
[2018-03-28] MEDS: Sotalol Hydrochloride 80 MG Tablet PO ×2 (10:00→22:39)
[2018-03-28] MEDS: Gemfibrozil 600 MG Tablet PO ×2 (10:00→22:13)
[2018-03-28 10:08] VITALS: BP 102/56; PULSE 70; RESP 18; TEMP 36.8; O2SAT 96
[2018-03-28 10:27] LABS: Absolute Lymphocyte Count 0.34 X10^3/ul (0.83-4.51); Absolute Neutrophil Count 0.4 X10^3/uL (2.0-7.7); Basophil# 0.02 X10^3/uL; Basophil% 2.4 % (0-1); Eosinophil# 0.01 X10^3/uL; Eosinophils% 1.2 % (0-5); Hematocrit 25.8 % (40-54); Lymphocyte # 0.34 X10^3/ul (4.0); Lymphocyte % 41.5 % (19-41); Mean Corpuscular Volume 87.2 fL (80-94); Monocyte# 0.06 X10^3/uL; Monocyte% 7.3 % (0-10); Neutrophil # 0.38 X10^3/uL (2.7-7.7); Neutrophil % 46.4 % (47-70); Platelet Count 70 K/mm3 (150-450); RBC Distribution Width CV 18.8 % (11.6-14.6); RBC Distribution Width SD 59.9 fl (35.1-43.9); Red Blood Count 2.96 M/mm3 (4.6-6.2)
[2018-03-28 10:28] LABS: POSITIVE COUNT YES; POSITIVE DIFFERENTIAL YES; POSITIVE MORPHOLOGY YES
[2018-03-28 10:29] LABS: Differential Indicated SCAN CRITERIA MET
[2018-03-28 10:30] LABS: White Blood Count 0.8 K/mm3 (4.4-11.0)
--- NOTE | 2018-03-28 10:36 | ONC.PN.INPT ---
- Problem List (1) Myelofibrosis Status: Chronic Subjective Date of Service:: 03/28/18 Myelofibrosis Mr. 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 He received Hydrea, anagrelide until April 2009. Bone marrow biopsy on December 02, 2015 showed mild evidence of myelofibrosis. He developed progressive neutropenia and anemia with massive splenomegaly so was started on Jakafi 15 mg bid on 12/26/17. He developed severe pancytopenia requiring admission 02/03/18, Jakafi held and supported with transfusion. Restarted Jakafi on 02/16/18 15 mg every 3 days. He developed fever 03/24/18 and was subsequently admitted to the hospital on broad-spectrum antibiotics. Thus far, cultures are negative. Patient endorses sinus congestion and drainage upon admission which has since resolved. Otherwise, he denies chills, sweats, abd pain, any episodes of bleeding/bruising and swelling/pain of his extremities. Past Medical History: Chronic Problems (Last Reviewed 03/24/18 @ 02:34 by Lupillo Marie MD) Essential thrombocytosis (Chronic) Leukopenia (Chronic) Myelofibrosis (Chronic) Anemia (Chronic) Pancytopenia (Chronic) CHF (congestive heart failure) (Chronic) Splenomegaly (Chronic) Past Medical History - Most Recent Inpatient Visit Past Medical History Start: 03/24/18 02:30 Text: Status: Complete Freq: ONCE Protocol: Document 03/24/18 02:30 [facility] (Rec: 03/24/18 02:39 [facility] [id number]) BMI Required to complete PMH What is Patient's BMI 28.7 Past Medical History Unable History Recalled No Query Text:Pt Unable/Family Not Present Neurologic Medical History Hx Stroke/TIA No Hx Dementia/Alzheimer's No Hx Parkinson's Disease No Hx Seizures No Hx Multiple Sclerosis No Hx Migraines No Cardiac Medical History VTE Present on Admission No Hx of Deep Vein Thrombosis/VTE/PE No Hx Hypertension No Hx Chest Pain/Angina No Hx Heart Attack No Hx Cardiac Surgery/Stents/Etc. No Hx Heart Failure Yes Hx Pacemaker/AICD No Hx Irregular Heartbeat and/or Afib Yes Hx Anticoagulant Therapy Yes: baby ASA Query Text:(Coumadin, Aspirin, Plavix, Xarelto, etc.) Hx Pain in Legs when Walking/Leg Cramps No Respiratory Medical History Hx COPD No Hx Emphysema No Hx Smoking Yes Smoking Status Former smoker Hx Tobacco Use in last 12 months No Hx Sleep Apnea No Do you snore loudly (louder than talking No or can be heard through closed doors)? Do you often feel tired/ fatigued/ No sleepy during daytime? Has anyone observed you stop breathing No during sleep? STOP Results Negative GI Medical History Hx Ulcer No Hx Hepatitis No Hx Cirrhosis No Hx GI Bleed No Hx Unplanned Weight Loss No Genitourinary Medical History Indwelling Catheter in Place on Arrival/ No Admission Hx Renal Disease No Hx Dialysis No Musculoskeletal History Hx Arthritis No Hx Rheumatoid Arthritis No Endocrine Medical History Hx Diabetes No Hx Thyroid Disease Yes: thyroid removed in 2003 Hematologic Medical History Hx of Blood Transfusion Yes Hx of Transfusion in last 3 Months Yes Date of Last Transfusion (if within last January 3 months) Ever experience any problems with No transfusion(s)? Hx of Preganancy in last 3 Months N/A Nurse Filling Out Transfusion & CKELLY Questions: Date: 03/24/18 Time: 02:39 Psycho/Social Medical History Hx Depression No Hx Anxiety No Hx Behavior Disorder No Hx Alcohol Use Yes: socially- rarely Hx Substance Use No Other Medical History Hx Blood Disorders Yes: myleofibrosis Hx Anemia Yes Hx Cancer Yes Hx Drug Resistant Organism No Wound/Pressure Injury Present on Arrival No /Admission Query Text:If yes, chart assessment in Shift/Clinical Findings Central Line/PICC/VAD Present on Arrival No /Admission Antibiotics within last 7 days? No Methicillin Resistant Staphylococcus aureus Screening Active MRSA No Risk for Readmission Number of Risk Factors 6 At Risk for Readmission Patient is At Risk For Readmission Patient is eligible for Call Back Y Past Medical History (Last Reviewed 03/24/18 @ 02:34 by Lupillo Marie MD) CHF (congestive heart failure) (Acute) Heart disease (Acute) Hyperlipidemia (Acute) Myeloproliferative neoplasm (Acute) Thrombocytopenia (Acute) Thyroid disease (Acute) Past Surgical History (Last Reviewed 03/24/18 @ 02:34 by Lupillo Marie MD) H/O cardiac catheterization (Acute) H/O prostate biopsy (Acute) History of bone marrow biopsy (Acute) History of thyroidectomy (Acute) Maternal Family History: Family History (Last Updated 03/24/18 @ 02:35 by Lupillo Marie MD) Mother Heart disease Dementia Father COPD (chronic obstructive pulmonary disease) - Social History Lives: Spouse/ Significant Other Smoking Status: Former smoker Tobacco Use: Non-smoker Alcohol: Occasional Review of Systems Constitutional:: Reports: Fatigue. Denies: Fever, Sweats, Weight loss, Appetite change, Chills Cardiovascular:: Denies: Chest pain, Palpitations, Dyspnea on exertion, Orthopnea, PND, Shortness of breath Respiratory: Denies: Cough, Hemoptysis, Shortness of Breath, Wheezing Gastrointestinal:: Denies: Abdominal pain, Nausea, Vomiting, Diarrhea, Constipation, Hematochezia Genitourinary: Denies: Dysuria, Hematuria, 15, Flank pain Musculoskeletal:: Denies: Back pain, Myalgia, Arthralgia Skin: Denies: Rash, Skin Changes, Wounds Neurological:: Denies: Headache, Dizziness, Numbness, Tingling, Visual changes, Tinnitus, Hearing loss Psychiatric: Denies: Anxiety, Depression, Homicidal Ideations, Suicidal Ideations Vital Signs Height 5 ft 9 in Weight: 195 lb 12.328 oz Weight in Pounds 195.8 lbs Pulse Ox 96 Temperature 98.5 F Pulse Rate 69 Respiratory Rate 15 Blood Pressure [BP] 105/63 Blood Pressure 104/55 Blood Pressure Position [BP] Semi-Fowlers Blood Pressure Position Semi-Fowlers - Physical Exam General: Alert, Oriented x3, No apparent distress HEENT: Atraumatic, Normocephalic, - - wears glasses Oropharynx:: Negative for: Dry mucosa, Ulcerated lesions Neck:: Supple, Trachea midline. Negative for: JVD, bilateral Cardiac:: Regular rate, Regular rhythm, Normal S1, Normal S2 Lungs: Clear to auscultation, Excusion symmetrical. Negative for: Rhonchi, Wheezes Abdomen:: Bowel sounds x 4, Soft, Non-tender, Non-distended, Distended, Splenomegaly Extremities:: Negative for: Cyanosis, Edema Neurological: Neuro grossly intact Skin:: Negative for: Lesions, Rash, Petechiae, Ecchymosis Psychiatric:: Appropriate affect, Euthymic Lymphatics:: Negative for: Cervical lymphadenopathy, Supraclavicular lymphadenopathy, Axillary lymphadenopathy Laboratory Data: Microbiology 03/26/18 17:55 C. difficile DNA Amplification - Final Stool Laboratory Tests 03/28/18 Range/Units 09:40 RBC 2.96 L (4.6-6.2) M/mm3 Hgb 8.0 L (13.0-16.5) g/dl Hct 25.8 L (40-54) % MCV 87.2 (80-94) fL MCH 27.0 (27.0-32.0) pg MCHC 31.0 L (32-36) g/gl RDW 18.8 H (11.6-14.6) % RDW Differential 59.9 H (35.1-43.9) fl Plt Count 70 L (150-450) K/mm3 MPV TNP Immature Gran % (Auto) 1.200 H (0.0-0.9) % Neut % (Auto) 46.4 L (47-70) % Lymph % (Auto) 41.5 H (19-41) % Callaway % (Auto) 7.3 (0-10) % Eos % (Auto) 1.2 (0-5) % Baso % (Auto) 2.4 H (0-1) % Absolute Neuts (auto) 0.4 L (2.0-7.7) X10^3/uL Absolute Lymphs (auto) 0.34 L (0.83-4.51) X10^3/ul Diagnostic Data: Diagnostic Data Chest X-Ray 03/23/18 23:35 IMPRESSION: No acute pulmonary findings. Electronically Signed: Lloyd Emerson MD at 0:03 EDT Tel , Service support , Abdomen X-Ray 03/26/18 15:05 IMPRESSION: No acute pathology of the abdomen or pelvis. 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 1. Post essential thrombocythemia myelofibrosis with panyctopenia and massive splenomegaly- Hgb 8 does not require transfusion, platelets 70,000 and although remains markedly neutropenic as evidenced by ANC 0.4. Last transfused with 2 units PRBC on 03/27/2018. Engaged in discussion with patient regarding repeat BMBX which is indicated. He is agreeable to proceed with biopsy on out patient basis. Continue to hold Jakafi. 2. Acute febrile neutropenia-= Blood cultures have remained negative. Afebrile x 4 days. Currently on meropenem. Patient can likely be released home without PO coverage. Neutropenic precautions reviewed and advised to strictly follow. Patient to follow up with Dr. Payne the next day after discharge for close monitoring of CBC and to facilitate scheduling of BMBX. Case discussed with Dr. Payne who was in agreement with the aforementioned plan. Lily Montanez, MSN, [employer]-C, AOCNP Primary Care Provider: Diogenes Suarez Referring Provider:
[2018-03-28 10:40] LABS: Anion Gap 12 (5-15); BUN 32 mg/dL (7-18); BUN/Creat Ratio 27.8 RATIO (10-20); Calcium,Total 7.9 mg/dL (8.5-10.1); Chloride 107 mmol/L (98-107); Creatinine, Serum 1.15 mg/dL (0.70-1.30); EST Glomerular Filtration Rate 68 mL/min (>60); Est Glom Filt Rate - Afr Amer 82 mL/min (>60); Estimated Creatinine Clearance 64.04 ml/min; Glucose 114 mg/dL (74-106); Potassium 3.8 mmol/L (3.5-5.1); Sodium Level 145 mmol/L (136-145)
[2018-03-28 10:43] LABS: Tear Drop Cell 1+
[2018-03-28 10:44] LABS: Anisocytosis 1+; Ovalocyte RARE
[2018-03-28 10:48] LABS: Platelet Estimate MOD DEC (ADEQ)
[2018-03-28 13:43] LABS: Pathologist Review Reviewed
[2018-03-28 13:57] LABS: Pathologist Review Reviewed
[2018-03-28] MEDS: 0.9% NaCl Peripheral Flush Adult/Peds IV ×2 (14:57→22:11)
[2018-03-28 16:08] VITALS: BP 102/54; PULSE 70; RESP 18; TEMP 36.7; O2SAT 99
[2018-03-28 22:08] VITALS: BP 103/41; PULSE 79; RESP 18; TEMP 37.3; O2SAT 95
[2018-03-28] MEDS: Doxazosin 4 MG Tablet PO (22:12)
[2018-03-28] MEDS: Finasteride 5 MG Tablet PO (22:13)
[2018-03-28] MEDS: Atorvastatin Calcium 10 MG Tablet PO (22:15)
[2018-03-29 04:10] VITALS: BP 95/46; PULSE 61; RESP 16; TEMP 37.2; O2SAT 95
[2018-03-29 06:09] LABS: Anion Gap 10 (5-15); BUN 37 mg/dL (7-18); BUN/Creat Ratio 35.6 RATIO (10-20); Chloride 108 mmol/L (98-107); Creatinine, Serum 1.04 mg/dL (0.70-1.30); EST Glomerular Filtration Rate 76 mL/min (>60); Est Glom Filt Rate - Afr Amer 92 mL/min (>60); Estimated Creatinine Clearance 70.81 ml/min; Glucose 92 mg/dL (74-106); Magnesium 1.9 mg/dL (1.6-2.6); Potassium 4.1 mmol/L (3.5-5.1); Sodium Level 145 mmol/L (136-145)
[2018-03-29 06:12] LABS: Absolute Lymphocyte Count 0.42 X10^3/ul (0.83-4.51); Absolute Neutrophil Count 0.4 X10^3/uL (2.0-7.7); Basophil# 0.02 X10^3/uL; Basophil% 2.2 % (0-1); Hemoglobin 7.5 g/dl (13.0-16.5); Lymphocyte # 0.42 X10^3/ul (4.0); Lymphocyte % 45.2 % (19-41); Mean Corp Hgb Conc 31.3 g/gl (32-36); Mean Corpuscular Hgb 27.3 pg (27.0-32.0); Mean Corpuscular Volume 87.3 fL (80-94); Monocyte# 0.08 X10^3/uL; Monocyte% 8.6 % (0-10); Neutrophil % 42.9 % (47-70); Platelet Count 74 K/mm3 (150-450); RBC Distribution Width CV 18.7 % (11.6-14.6); RBC Distribution Width SD 59.8 fl (35.1-43.9); Red Blood Count 2.75 M/mm3 (4.6-6.2)
[2018-03-29 06:17] LABS: Differential Indicated SCAN CRITERIA MET; POSITIVE COUNT YES; POSITIVE DIFFERENTIAL YES; POSITIVE MORPHOLOGY YES
[2018-03-29] MEDS: 0.9% NaCl Peripheral Flush Adult/Peds IV (06:20)
[2018-03-29] MEDS: Levothyroxine 175 MCG Tablet PO (06:20)
[2018-03-29 06:46] LABS: Atypical Lymphocyte 2+ %; Differential Comment SCANNED; Ovalocyte 1+; Schistocytes 1+
[2018-03-29 06:47] LABS: Absolute Nucleated RBC Count 0.02 10^3/uL (0-5); NRBC Flagged by Analyzer 1.8 % (0-5)
[2018-03-29 06:48] LABS: White Blood Count 0.9 K/mm3 (4.4-11.0)
--- NOTE | 2018-03-29 08:16 | DCINST_ITS ---
- Discharge Diagnoses Current Active Problems: Current Active and Chronic Problems (Last Reviewed 03/24/18 @ 02:34 by Lupillo Marie MD) Neutropenic fever (Acute) You will use the following diet at home:: No restrictions Allergies/Adverse Reactions: Allergies pseudoephedrine [From Sudafed] Adverse Reaction (Severe, Verified 03/23/18 21:42 ) Itching FEVER Medications to take at Discharge Allopurinol [Zyloprim] 300 mg PO DAILY 02/04/18 Atorvastatin Calcium [Lipitor] 10 mg PO QHS 02/04/18 Doxazosin Mesylate [Cardura] 4 mg PO QHS 02/04/18 Finasteride [Proscar] 5 mg PO QHS 02/04/18 Furosemide [Lasix] 40 mg PO DAILY 02/04/18 Gemfibrozil [Lopid] 600 mg PO BIDAC 02/04/18 Levothyroxine [Synthroid] 175 mcg PO DAILY 02/04/18 Sotalol Hydrochloride [Betapace (Beta Wally)] 80 mg PO BID 02/04/18 Ruxolitinib Phosphate [Jakafi] 15 mg PO X1 03/17/18 Primary Care Physician: Diogenes Suarez DO [Primary Care Provider] - Test Results: Test results from this visit will be discussed in further detail at your follow- up appointment, if applicable. Please Follow Up With: Lupillo Payne MD When: in 1-2 days Proposed Discharge Date: 03/29/18
--- NOTE | 2018-03-29 08:18 | PCM.DC.SUM ---
Discharge Date and Diagnosis - Problem List Patient Problems: Active and Suspected Problems (Last Reviewed 03/24/18 @ 02:34 by Lupillo Marie MD) Neutropenic fever (Acute) Date of Admission: 03/24/18 Date of Discharge: 03/29/18 - Primary Discharge Diagnosis Active and Suspected Problems (Last Reviewed 03/24/18 @ 02:34 by Lupillo Marie MD) Neutropenic fever (Acute) - Secondary Discharge Diagnosis Chronic Problems (Last Reviewed 03/24/18 @ 02:34 by Lupillo Marie MD) Essential thrombocytosis (Chronic) Leukopenia (Chronic) Myelofibrosis (Chronic) Anemia (Chronic) Pancytopenia (Chronic) CHF (congestive heart failure) (Chronic) Splenomegaly (Chronic) Hospital Course and Treatment Imaging Results: Clinical Impression(s) from Imaging Studies Chest X-Ray 03/23/18 23:35 IMPRESSION: No acute pulmonary findings. Electronically Signed: Lloyd Emerson MD at 0:03 EDT Tel , Service support , Abdomen X-Ray 03/26/18 15:05 IMPRESSION: No acute pathology of the abdomen or pelvis. 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 1. Acute febrile neutropenia: Admitted to regular nursing floor after cultures were obtained currently on meropenem cultures have remained negative to date. Patient fever did resolve however he was still relatively neutropenic at the time of discharge case was discussed with oncology who gave the go ahead for patient to be discharged to follow-up as outpatient. He was instructed on neutropenic precautions at home. Plans for patient to follow-up with Dr. Delgadillo within 1-2 days for repeat lab work 2. Secondary Myelofibrosis followed by oncology was on Jakafi prior to his admission patient was instructed to hold his Jakafi and only to resume when cleared by oncology 3. Massive splenomegaly attributed to patient myelofibrosis 4. 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 Acute kidney injury resolved 6. Chemo induced pancytopenia with anemia, thrombocytopenia and leukopenia the patient was transfused with 2 units PRBC on 03/27/2018 7. Chronic diastolic congestive heart failure stable 8. Dyslipidemia-patient is on statin therapy, continued at home dose 9. Hypothyroidism-patient is on levothyroxine home dose continued 10. DVT prophylaxis; SCDs Discharge Diet: No Restrictions Home Medications: Medications to take at Discharge Allopurinol [Zyloprim] 300 mg PO DAILY 02/04/18 Atorvastatin Calcium [Lipitor] 10 mg PO QHS 02/04/18 Doxazosin Mesylate [Cardura] 4 mg PO QHS 02/04/18 Finasteride [Proscar] 5 mg PO QHS 02/04/18 Furosemide [Lasix] 40 mg PO DAILY 02/04/18 Gemfibrozil [Lopid] 600 mg PO BIDAC 02/04/18 Levothyroxine [Synthroid] 175 mcg PO DAILY 02/04/18 Sotalol Hydrochloride [Betapace (Beta Wally)] 80 mg PO BID 02/04/18 Ruxolitinib Phosphate [Jakafi] 15 mg PO X1 03/17/18 Primary Care Physician: Diogenes Suarez DO [Primary Care Provider] - Please Follow Up With: Lupillo Payne MD When: in 1-2 days Disposition: Home Minutes spent on discharge:: 35 Patient Condition:: Stable Medical Necessity - Tobacco Use Smoking Status: Former smoker Tobacco Use: Non-smoker Meaningful Use Info Meaningful Use Diagnoses (Choose all that apply): None applicable Code Visit Inpatient E&M: 07286 Disch Hosp
--- NOTE | 2018-03-29 08:21 | DS.PCM_ITS ---
Discharge Date and Diagnosis - Problem List Patient Problems: Active and Suspected Problems (Last Reviewed 03/24/18 @ 02:34 by Lupillo Marie MD) Neutropenic fever (Acute) Date of Admission: 03/24/18 Date of Discharge: 03/29/18 - Primary Discharge Diagnosis Active and Suspected Problems (Last Reviewed 03/24/18 @ 02:34 by Lupillo Marie MD) Neutropenic fever (Acute) - Secondary Discharge Diagnosis Chronic Problems (Last Reviewed 03/24/18 @ 02:34 by Lupillo Marie MD) Essential thrombocytosis (Chronic) Leukopenia (Chronic) Myelofibrosis (Chronic) Anemia (Chronic) Pancytopenia (Chronic) CHF (congestive heart failure) (Chronic) Splenomegaly (Chronic) Hospital Course and Treatment Imaging Results: Clinical Impression(s) from Imaging Studies Chest X-Ray 03/23/18 23:35 IMPRESSION: No acute pulmonary findings. Electronically Signed: Lloyd Emerson MD at 0:03 EDT Tel , Service support , Abdomen X-Ray 03/26/18 15:05 IMPRESSION: No acute pathology of the abdomen or pelvis. 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 1. Acute febrile neutropenia: Admitted to regular nursing floor after cultures were obtained currently on meropenem cultures have remained negative to date. Patient fever did resolve however he was still relatively neutropenic at the time of discharge case was discussed with oncology who gave the go ahead for patient to be discharged to follow-up as outpatient. He was instructed on neutropenic precautions at home. Plans for patient to follow-up with Dr. Delgadillo within 1-2 days for repeat lab work 2. Secondary Myelofibrosis followed by oncology was on Jakafi prior to his admission patient was instructed to hold his Jakafi and only to resume when cleared by oncology 3. Massive splenomegaly attributed to patient myelofibrosis 4. 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 Acute kidney injury resolved 6. Chemo induced pancytopenia with anemia, thrombocytopenia and leukopenia the patient was transfused with 2 units PRBC on 03/27/2018 7. Chronic diastolic congestive heart failure stable 8. Dyslipidemia-patient is on statin therapy, continued at home dose 9. Hypothyroidism-patient is on levothyroxine home dose continued 10. DVT prophylaxis; SCDs Discharge Diet: No Restrictions Home Medications: Medications to take at Discharge Allopurinol [Zyloprim] 300 mg PO DAILY 02/04/18 Atorvastatin Calcium [Lipitor] 10 mg PO QHS 02/04/18 Doxazosin Mesylate [Cardura] 4 mg PO QHS 02/04/18 Finasteride [Proscar] 5 mg PO QHS 02/04/18 Furosemide [Lasix] 40 mg PO DAILY 02/04/18 Gemfibrozil [Lopid] 600 mg PO BIDAC 02/04/18 Levothyroxine [Synthroid] 175 mcg PO DAILY 02/04/18 Sotalol Hydrochloride [Betapace (Beta Wally)] 80 mg PO BID 02/04/18 Ruxolitinib Phosphate [Jakafi] 15 mg PO X1 03/17/18 Primary Care Physician: Diogenes Suarez DO [Primary Care Provider] - Please Follow Up With: Lupillo Payne MD When: in 1-2 days Disposition: Home Minutes spent on discharge:: 35 Patient Condition:: Stable Medical Necessity - Tobacco Use Smoking Status: Former smoker Tobacco Use: Non-smoker Meaningful Use Info Meaningful Use Diagnoses (Choose all that apply): None applicable Code Visit Inpatient E&M: 95446 Disch Hosp
--- NOTE | 2018-03-29 09:01 | PCA ---
this sectary made followup appointment for this patient for primary and also doctor emely
[2018-03-29] MEDS: Allopurinol 300 MG Tablet PO (10:55)
[2018-03-29] MEDS: Furosemide 40 MG Tablet PO (10:55)
[2018-03-29] MEDS: Gemfibrozil 600 MG Tablet PO (10:56)
[2018-03-29] MEDS: Sotalol Hydrochloride 80 MG Tablet PO (11:08)
[2018-03-29 11:21] VITALS: BP 122/60; PULSE 73; RESP 18; TEMP 36.4; O2SAT 99
[2018-03-29 15:13] LABS: Pathologist Review Reviewed
[2018-03-29 15:15] LABS: Pathologist Review Reviewed
--- NOTE | 2018-03-31 16:07 | CASEMGMT ---
ROMÁN LANDRY Discharge Follow-up Phone Call: PREETHI: Kingsley Strata: 4 Call Date: 03/31/18 Discharge Date: 03/29/18 Time of Call: 1605 Duration: 1 min Admitting Diagnosis: Neutropenic fever ROMÁN LANDRY attempted to complete follow-up phone call after recent hospitalization. No answer, voice message left with return contact information.
== END 2018-03-29 11:45 | disposition home or self-care (01) | DRG 809 ==
LOC: ED 23:48 → MS3 03-24 02:14
PROVIDERS: Nurse Practitioner Family; Physician Assistant; Admitting Provider Hospitalist; Emergency Provider Emergency Medicine; Family Provider Preventive Medicine Occupational Medicine; PCP Preventive Medicine Occupational Medicine; Visit Provider Internal Medicine
DX: D70.9 Neutropenia, unspecified (principal); D75.81 Myelofibrosis; N17.9 Acute kidney failure, unspecified; I50.32 Chronic diastolic (congestive) heart failure; R50.81 Fever presenting with conditions classified elsewhere; E89.0 Postprocedural hypothyroidism; E78.5 Hyperlipidemia, unspecified; M10.9 Gout, unspecified; N40.0 Benign prostatic hyperplasia without lower urinary tract symptoms; R16.1 Splenomegaly, not elsewhere classified; D61.810 Antineoplastic chemotherapy induced pancytopenia; T45.1X5A Adverse effect of antineoplastic and immunosuppressive drugs, initial encounter
CPT/HCPCS: 36415; 71045; 74019; 80048; 80053; 81001; 83605; 83735; 85025; 86644; 86850; 86900; 86920; 86922; 87040; 87086; 87493; 87633; 99283; J2185; J7030; J7040; P9040; A4216; J1447; J1940

== ENCOUNTER → 2018-04-08 07:48 | Outpatient (CLI) | payer MEDICARE, SELFPAY ==
[2018-04-08] VITALS (10 sets, daily range): BP systolic 99–115; BP diastolic 41–78; PULSE 63–68; RESP 12–24; TEMP 37; O2SAT 91–98; BMI 28.9
--- NOTE | 2018-04-08 | BMB_PTH ---
PATIENT: ALTON BROWN LOC: CT U#:[id number] AGE/SX: 74/M ROOM: RE04/08/[address]: Dr. Lupillo Payne MD : 1950 BED: DIS: SPEC #: [id number] RECD: 04/11/18 04:29 STATUS: ROSALBA LEELA #: [id number] ROBSON: 04/08/18 00:[address]: Lupillo Payne DEPT: BONE MARROW RECD BY: Venkata Wilson ENTERED: 04/11/18 04:29 SP TYPE: BMB OTHR DR: Dr. Diogenes Suarez DO Tissues: A - Bone marrow, NOS B - Bone marrow, NOS Procedures: Decalcification bone/plaque Bone Marrow Aspiration Special Stain Group II PAS Stain (control) Retic (control) Iron Stain (control) Kaufman Stain (control) Bone Marrow Core Biopsy Iron Stain Bone Marrow HEADER OPERATION: Bone marrow biopsy and aspiration PRE-OP DIAGNOSIS: Post essential thrombocytosis, myelofibrosis, rule out AML/MDS TISSUE SUBMITTED: A - Aspiration, B - Smears BONE MARROW DIAGNOSIS Bone marrow biopsy and aspiration: Nondiagnostic. AM:cedrick 04/13/18 COMMENT A. Sections of the cell block reveal proteinaceous material and scattered red blood cells. Only very rare marrow cells are seen. Iron stain with matched control does not reveal iron staining. Reticulin staining with matched control does not reveal increase in reticulin fibers. PAS stain with and without diastase is noncontributory. B. The smears are markedly hemodilute. The specimen contains essentially red blood cells and very rare maturing bone marrow elements. There is no evidence of malignancy. The specimens submitted are insufficient for full evaluation. Clinical correlation is necessary. Case has been reviewed in consultation with Dr. Sarah who concurs with the above diagnosis. IDC:KASH BONE MARROW STUDY Slides are reviewed. BONE MARROW GROSS A - The specimen consists of approximately 20 cc of clear fluid. The fluid is subjected to cytospin technique and a cell block is created. B - Also received are 8 unstained and 1 peripheral stained slides. The unstained slides are submitted for appropriate staining. / AM:cedrick 04/08/18 TC:5 CPT: 16374, 97390, 41580 x2, 88642 x3, 73863
--- NOTE | 2018-04-08 | BMB_PTH ---
PATIENT: ALTON BROWN LOC: CT U#:[id number] AGE/SX: 74/M ROOM: RE04/08/[address]: Dr. Lupillo Payne MD : 1950 BED: DIS: SPEC #: [id number] RECD: 04/11/18 04:29 STATUS: ROSALBA LEELA #: [id number] ROBSON: 04/08/18 00:[address]: Lupillo Payne DEPT: BONE MARROW RECD BY: Venkata Wilson ENTERED: 04/11/18 04:29 SP TYPE: BMB OTHR DR: Dr. Diogenes Suarez DO Tissues: A - Bone marrow, NOS B - Bone marrow, NOS Procedures: Bone Marrow Aspiration Special Stain Group II PAS Stain (control) Retic (control) Iron Stain (control) Kaufman Stain (control) Bone Marrow Core Biopsy Iron Stain Bone Marrow HEADER OPERATION: Bone marrow biopsy and aspiration PRE-OP DIAGNOSIS: Post essential thrombocytosis, myelofibrosis, rule out AML/MDS TISSUE SUBMITTED: A - Aspiration, B - Smears BONE MARROW DIAGNOSIS Bone marrow biopsy (cytospin and cell block) and aspiration (smears): Nondiagnostic. AM:cedrick 04/13/18 AM:cedrick 04/27/18 COMMENT A. Sections of the cell block reveal proteinaceous material and scattered red blood cells. Only very rare marrow cells are seen. Iron stain with matched control does not reveal iron staining. Reticulin staining with matched control does not reveal increase in reticulin fibers. PAS stain with and without diastase is noncontributory. B. The smears are markedly hemodilute. The specimen contains essentially red blood cells and very rare maturing bone marrow elements. There is no evidence of malignancy. The specimens submitted are insufficient for full evaluation. Clinical correlation is necessary. Case has been reviewed in consultation with Dr. Sarah who concurs with the above diagnosis. IDC:SJ BONE MARROW STUDY Slides are reviewed. BONE MARROW GROSS A - The specimen consists of approximately 20 cc of clear fluid. The fluid is subjected to cytospin technique and a cell block is created. B - Also received are 8 unstained and 1 peripheral stained slides. The unstained slides are submitted for appropriate staining. / AM:cedrick 04/08/18 TC:5 CPT: 83487, 53740, 48962, 40630 x0, 20317 ADDENDUM ADDENDUM ADDENDUM ADDENDUM ADDENDUM ADDENDUM ADDENDUM ADDENDUM ADDENDUM ADDENDUM 05/19/2018 09:50 ADDENDUM 05/19/2018 09:50 ADDENDUM 05/19/2018 09:50 ADDENDUM 05/19/2018 09:50 ADDENDUM 05/19/2018 09:50 This addendum is added to incorporate an outside pathology consultation report. The case was examined at [facility] (#[id number]) and the following diagnosis was rendered. Bone marrow aspirate and cell block: Inadequate for evaluation. Please see complete above mentioned consultation report in EMR
--- NOTE | 2018-04-08 08:02 | CT_ITS ---
PROCEDURE: CT GUIDED BONE marrow biopsy of the right iliac bone. DATE: April 08, 2018 INDICATION: Male, 67 years old. History of myelofibrosis. PHYSICIAN: Alcon Suarez M.D. RADIATION DOSAGE (If Supplied By Facility): CTDIvol = ( 16.5 ) mGy, DLP = ( 587.53 ) mGycm. Individualized dose optimization techniques were obtained. PROCEDURE: The risks, benefits, and alternatives to the procedure were explained to the patient. The specific risk of hemorrhage requiring further treatment or intervention was detailed and accepted. Follow-up instructions were discussed with the patient as well. Written informed consent was obtained. The patient was brought into the CT suite and placed in the left side down decubitus position. . An appropriate entry site was identified. The overlying skin was prepped and draped in the usual sterile fashion. 1% lidocaine was administered subcutaneously for local anesthesia. Conscious sedation was performed. The patient received 2 mg of Versed and 50 mcg of fentanyl intravenously. Conscious sedation was started at 8:59 AM and terminated at 9:28 AM. The patient was independently monitored by the department nurse. Under CT guidance, a bone marrow biopsy and bone marrow aspirate were performed utilizing the T lock bone marrow needle. The bone marrow was a sclerotic. Difficulty in acquiring the aspirate as well as the bone marrow. The specimens were then placed in the appropriate fluid and transported to the laboratory for analysis. Hemostasis was obtained. The patient tolerated the procedure well without immediate complications. CT/Biopsy/Inj or Needle Placement IMPRESSION: Successful CT guided bone marrow biopsy of the right iliac bone, as described above. Electronically Signed: Alcon Suarez MD at 13:28 EDT Tel [phone], Service support ,
[2018-04-08 08:06] LABS: Absolute Lymphocyte Count 0.41 X10^3/ul (0.83-4.51); Absolute Neutrophil Count 0.7 X10^3/uL (2.0-7.7); Basophil# 0.02 X10^3/uL; Basophil% 1.6 % (0-1); Eosinophil# 0.01 X10^3/uL; Eosinophils% 0.8 % (0-5); Hematocrit 27.4 % (40-54); Hemoglobin 8.4 g/dl (13.0-16.5); Lymphocyte # 0.41 X10^3/ul (4.0); Lymphocyte % 33.3 % (19-41); Mean Corp Hgb Conc 30.7 g/gl (32-36); Mean Corpuscular Volume 88.1 fL (80-94); Mean Platelet Vol. 9.4 fl (6.2-12.0); Monocyte# 0.12 X10^3/uL; Monocyte% 9.8 % (0-10); Neutrophil # 0.65 X10^3/uL (2.7-7.7); Platelet Count 141 K/mm3 (150-450); RBC Distribution Width CV 18.6 % (11.6-14.6); Red Blood Count 3.11 M/mm3 (4.6-6.2); White Blood Count 1.2 K/mm3 (4.4-11.0)
[2018-04-08 08:07] LABS: Differential Indicated SCAN CRITERIA MET; POSITIVE COUNT YES; POSITIVE DIFFERENTIAL YES; POSITIVE MORPHOLOGY YES
[2018-04-08 08:08] LABS: Neutrophil % 52.9 % (47-70)
[2018-04-08 08:09] LABS: Absolute Nucleated RBC Count 0.02 10^3/uL (0-5); NRBC Flagged by Analyzer 1.4 % (0-5)
[2018-04-08 08:25] LABS: Differential Comment SCANNED; Platelet Morphology LARGE
[2018-04-08 08:27] LABS: International Normalized Ratio 1.3; Prothrombin Time (Protime)PT. 16.2 SECONDS (11.7-14.9)
[2018-04-08 08:28] LABS: Partial Thromboplast Time 49.3 Seconds (24.1-36.2)
[2018-04-08 09:36] LABS: Bone Marrow Aspiraton SEE PATHOLOGY REPORT
[2018-04-11 12:40] LABS: Pathologist Review Reviewed
== END ==
PROVIDERS: Family Provider Preventive Medicine Occupational Medicine; PCP Preventive Medicine Occupational Medicine; Visit Provider Internal Medicine Medical Oncology
DX: D47.3 Essential (hemorrhagic) thrombocythemia (principal); D75.81 Myelofibrosis
CPT/HCPCS: 38221; 36415; 77012; 85025; 85610; 85730; 88305; 88311; 88313; 99156; 99157; J7040; A4216

== ENCOUNTER 2020-04-21 21:33 | Inpatient (IN) | payer MEDICARE, SELFPAY ==
[2020-04-21 21:34] VITALS: BP 136/64; PULSE 75; RESP 16; TEMP 37.4; O2SAT 96; BMI 29.9
[2020-04-21 21:36] VITALS: BP 136/64; PULSE 75; RESP 16; TEMP 37.4; O2SAT 96
--- NOTE | 2020-04-21 22:02 | ED.DCSUM_ITS ---
- ER Visit Summary Date of Service: 04/21/20 Chief Complaint: Fever History of Present Illness: The patient is a 69 M history of myelofibrosis and gout. Patient states since has had intermittent fever as high as one 3.5. He denies any nausea, vomiting or diarrhea. He denies any cough or shortness of breath. He denies any abdominal pain. He denies any dysuria. States he had some mild but clear nasal drainage. He denies any sinus pain. Had brief loose stools last week but that since resolved. He states on the medications he on often causes that. Physical Examination: Well-appearing older male. Vital signs stable currently is afebrile at 994 but he took Tylenol prior to arrival. Initial blood pressure 136/64. Pulse ox 96% on room air no signs of hypoxia. H EENT exam unremarkable. Neck nontender. No lymphadenopathy. Lungs clear to auscultation bilaterally. Heart regular rhythm 3/6 systolic ejection murmur rate about 75. Chest were nontender. Abdomen soft nontender. Normal bowel sounds. He has chronic splenomegaly. No peritoneal signs. Patient is moving all 4 extremities. Calves are nontender without edema. He has a chronic bursitis just below his knee. Neurologically is awake and alert with no focal motor deficits. Skin no rashes. Back nontender. Neurologically is awake and alert. Answering questions, following commands and moving all 4 extremities. Test Results: Verbal chest x-ray 1 view read by myself and the radiologist shows a right perihilar pneumonia. White count of 1.8 is baseline is been 1.2. Hemoglobin of 10.2 again baseline. Platelets 140,000 again baseline. No bands. Electrolytes unremarkable creatinine 1.4 blood cultures x2 pending. COVID is pending. Lactic acid is normal at 0.6. UA is negative. Blood cultures and COVID are pending. Emergency Department Course and Treatment: Patient clinically looks good but when undergoing infectious work-up. Due to the patient's right side pneumonia he will be started on community- acquired pneumonia antibiotic protocol IV Rocephin and IV Zithromax. Treatment Plan: Given the patient's age and comorbidities I will speak to the hospitalist about admission. Disposition: Admission Impression: Acute fever Acute right-sided pneumonia Immunocompromised and pancytopenic History of myelofibrosis This note was generated with Dragon dictation software. It may contain incorrect words, spelling, and punctuation that were not noted in review of the chart prior to signing ED Disposition - Plan for ED Patient:
[2020-04-21 22:21] LABS: Absolute Lymphocyte Count 0.29 X10^3/uL (0.83-4.51); Absolute Neutrophil Count 1.3 X10^3/uL (2.0-7.7); Basophil# 0.02 X10^3/uL; Basophil% 1.1 % (0-1); Eosinophil# 0.01 X10^3/uL; Eosinophils% 0.5 % (0-5); Hematocrit 33.4 % (40-54); Hemoglobin 10.2 g/dL (13.0-16.5); Lymphocyte # 0.29 X10^3/ul (4.0); Lymphocyte % 15.9 % (19-41); Mean Corp Hgb Conc 30.5 g/dL (32-36); Mean Corpuscular Hgb 26.8 pg (27.0-32.0); Mean Corpuscular Volume 87.9 fL (80-94); Monocyte# 0.11 X10^3/uL; NRBC Flagged by Analyzer 0 % (0-5); Neutrophil # 1.33 X10^3/uL (2.7-7.7); Neutrophil % 73.2 % (47-70); POSITIVE DIFFERENTIAL YES; Platelet Count 140 K/mm3 (150-450); RBC Distribution Width CV 17.7 % (11.6-14.6); RBC Distribution Width SD 55.8 fl (35.1-43.9); White Blood Count 1.8 K/mm3 (4.4-11.0)
--- NOTE | 2020-04-21 22:26 | RAD_ITS ---
STUDY: X-RAY CHEST REASON FOR EXAM: Male, 69 years old. FEVER, WEAKNESS, FATIGUE PAST SEVERAL DAYS. HX OF MYELOFIBROSIS. TECHNIQUE: Single frontal view of the chest. COMPARISON: 9518 FINDINGS: Clips in the neck. Mild right perihilar pneumonia. There is no demonstrated pleural abnormality. Normal size heart. Normal mediastinum and [place]. Normal visualized pulmonary arteries. Normal visualized aortic arch and descending thoracic aorta. Normal visualized thoracic spine. Normal visualized ribs, clavicles, and shoulders. There is no demonstrated abnormality of the visualized soft tissue structures of the upper abdomen. RAD/Chest 1 View (Portable) IMPRESSION: Mild right perihilar pneumonia. Electronically Signed: Lloyd Emerson MD at 22:52 EDT Tel , Service support ,
[2020-04-21 22:30] LABS: Differential Indicated SCAN CRITERIA MET
[2020-04-21 22:47] LABS: Anion Gap 4 (5-15); BUN 40 mg/dL (7-18); BUN/Creat Ratio 27.8 RATIO (10-20); Calcium,Total 8.2 mg/dL (8.5-10.1); Chloride 108 mmol/L (98-107); Creatinine, Serum 1.44 mg/dL (0.70-1.30); EST Glomerular Filtration Rate 52 mL/min (>60); Est Glom Filt Rate - Afr Amer 63 mL/min (>60); Estimated Creatinine Clearance 48.16 ml/min; Glucose 117 mg/dL (74-106); Potassium 4.8 mmol/L (3.5-5.1); Sodium Level 138 mmol/L (136-145)
[2020-04-21 22:51] LABS: Lactic Acid 0.6 mmol/L (0.4-1.9)
[2020-04-21 23:19] VITALS: BP 119/75; PULSE 76; RESP 15; TEMP 37.2; O2SAT 93
[2020-04-21] MEDS: 0.9% Normal Saline 1,000 ML 999 ML IV (23:20)
[2020-04-21] MEDS: Ceftriaxone 1 GM/50 ML BAG IV (23:20)
[2020-04-21 23:30] LABS: Bacteria 0 SEEN /hpf (None Seen); Mucous, Urine 0 SEEN /hpf (<or=2+); Squamous Epithelial Cells - UA 0 SEEN /hpf (0-5)
[2020-04-21 23:35] VITALS: BP 126/50; PULSE 76; RESP 15; TEMP 37.2; O2SAT 95
--- NOTE | 2020-04-21 23:36 | ED.RN ---
PT REPORTS NEED TO TAKE NIGHT TIME MYELOFIBROSIS MEDICATIONS. DR. ARRIETA INFORMED AND APPROVES OF PT TAKING HIS HOME MEDICINES THAT PT BROUGHT WITH HIM. PT GIVEN ICE WATER TO TAKE MEDICATION.
--- NOTE | 2020-04-21 23:44 | PCM.HP.STD ---
Problem List (1) Pneumonia Status: Acute (2) Essential thrombocytosis Status: Chronic (3) Leukopenia Status: Chronic Qualifiers: Leukopenia type: other Qualified Code(s): D72.818 - Other decreased white blood cell count (4) Myelofibrosis Status: Chronic (5) Anemia Status: Chronic Qualifiers: Bone marrow failure anemia type: myelophthisis (6) Pancytopenia Status: Chronic (7) CHF (congestive heart failure) Status: Chronic (8) Splenomegaly Status: Chronic History of Present Illness Date of Admission: 04/21/20 Chief Complaint: fever The patient is a 69 year old M with a significant history of CHF; myelofibrosis: Gout; atrial fibrillation; and thyroidectomy who presents to the emergency department with a fever of 103.5 F. His fever started few hours before presentation. He took Tylenol to help with his fever. Also 3 days ago he had a fever. Associated with symptoms is shortness of breath and chills. He has a cough which is occasionally productive for sputum.. He is unable to tell the color of his sputum. He reports a scratchy throat which he attributes to postnasal drainage. He denies any nausea or vomiting. Chest x-ray showed mild perihilar infiltrate. He denies any change in his sensation of smell; and in his sensation of taste. Past Medical History Past Medical History (Chronic Problems): Chronic Problems (Last Reviewed 04/22/20 @ 02:[address] Lupillo Marie MD) Essential thrombocytosis (Chronic) Leukopenia (Chronic) Myelofibrosis (Chronic) Anemia (Chronic) Pancytopenia (Chronic) CHF (congestive heart failure) (Chronic) Splenomegaly (Chronic) Medical History: Medical History (Last Reviewed 04/22/20 @ 03:[address] Lupillo Marie MD) CHF (congestive heart failure) I50.9 Heart disease I51.9 Hyperlipidemia E78.5 Myeloproliferative neoplasm D47.1 Thrombocytopenia D69.6 Thyroid disease E07.9 Allergies pseudoephedrine [From Sudafed] Adverse Reaction (Severe, Verified 04/21/20 21:36) Itching FEVER Home Medications: Ambulatory Orders Medication Instructions Recorded Allopurinol [Zyloprim] 300 mg PO DAILY 02/04/18 Finasteride [Proscar] 5 mg PO QHS 02/04/18 Gemfibrozil [Lopid] 600 mg PO DAILY 02/04/18 Levothyroxine [Synthroid] 224 mcg PO DAILY 02/04/18 Sotalol Hydrochloride [Betapace 80 mg PO BID 02/04/18 (Beta Wally)] Alfuzosin HCl [Alfuzosin HCl ER] 10 mg PO DAILY 04/21/20 Darbepoetin Gabriel in Polysorbat 100 mcg IJ QWEEK 04/21/20 [Aranesp] Fedratinib Dihydrochloride 200 mg PO DAILY 04/21/20 [Inrebic] Surgical History: Surgical History (Last Reviewed 04/22/20 @ 03:[address] Lupillo Marie MD) H/O cardiac catheterization Z98.890 H/O prostate biopsy Z98.890 History of bone marrow biopsy Z98.890 History of thyroidectomy E89.0 Smoking Status: Former smoker Alcohol: Rare - *Family History Maternal Family History: Family History (Last Reviewed 04/22/20 @ 02:[address] Lupillo Marie MD) Mother Heart disease Dementia Father COPD (chronic obstructive pulmonary disease) Review of Systems Constitutional: Reports: Chills, Fever. Denies: Weight Change HEENT: Denies: Head Aches, Sinus Congestion, Sinus Drainage Cardiovascular: Denies: Chest Pain, Palpitations Respiratory: Reports: Cough, Shortness of Breath, Sputum production, Wheezing Gastrointestinal: Denies: Abdominal Pain, Nausea, Vomiting Genitourinary: Denies: Dysuria Musculoskeletal: Denies: Joint Pain, Joint Tenderness Skin: Denies: Rash, Wounds Neurological: Denies: Numbness, Tingling, Focal weakness Psychiatric: Denies: Anxiety, Depression, Homicidal Ideations, Suicidal Ideations Hematologic/ Lymphatic: Denies: Easy Bruising, Easy Bleeding VTE Information - Inpt Only VTE Present on Admission: No VTE Mechan Device Prophylaxis: None VTE Pharm Prophylaxis ordered?: Yes Patient Problems: Active and Suspected Problems (Last Reviewed 04/22/20 @ 02:[address] Lupillo Marie MD) Pneumonia (Acute) - Physical Exam Vitals/I&O's: Vital Signs Temp Pulse Resp BP Pulse Ox 98.9 F 76 15 126/50 H 95 04/21/20 23:35 04/21/20 23:35 04/21/20 23:35 04/21/20 23:35 04/21/20 23:35 Oxygen Delivery Method Room Air Weight: 89.4 kg Body Mass Index (BMI) 29.9 General: Alert, Oriented x3, Cooperative HEENT: Atraumatic, PERRLA, EOMI, Normocephalic Neck: Supple, No JVD, Negative Carotid Bruits Lungs: Clear to auscultation, Normal air movement Cardiovascular: Regular rate, No murmurs Abdomen: Bowel Sounds Present, Soft, Non Tender Extremities: No edema, Capillary Refill Less than 3 Seconds Skin: No rashes, No breakdown Musculoskeletal: No Tenderness to Palpation of Joints or Extremities Neurological: Cranial nerves II-XII grossly intact Psych/Mental Status: Normal Affect, Appropriate Laboratory Results 04/21/20 22:08: WBC 1.8 L, RBC 3.80 L, Hgb 10.2 L, Hct 33.4 L, MCV 87.9, MCH 26.8 L, MCHC 30.5 L, RDW Std Deviation 55.8 H, RDW Coeff of Rafael 17.7 H, Plt Count 140 L, Immature Gran % (Auto) 3.300 H, Neut % (Auto) 73.2 H, Lymph % (Auto) 15.9 L, [place] % (Auto) 6.0, Eos % (Auto) 0.5, Baso % (Auto) 1.1 H, Absolute Neuts (auto) 1.3 L, Absolute Lymphs (auto) 0.29 L, Nucleated RBC % 0 04/21/20 22:08: Sodium 138, Potassium 4.8, Chloride 108 H, Carbon Dioxide 26.0, Anion Gap 4 L, BUN 40 H, Creatinine 1.44 H, Estim Creat Clear Calc 48.16, Est GFR (MDRD) Af Amer 63, Est GFR (MDRD) Non-Af 52 L, BUN/Creatinine Ratio 27.8 H, Glucose 117 H, Calcium 8.2 L 04/21/20 22:08: Lactic Acid 0.6 04/21/20 22:28: COVID-19 (RADHA) Pending 04/21/20 23:25: Urine Color Pending, Urine Clarity Pending, Urine pH Pending, Ur Specific [place] Pending, Urine Protein Pending, Urine Glucose (UA) Pending, Urine Ketones Pending, Urine Occult Blood Pending, Urine Nitrite Pending, Urine Bilirubin Pending, Urine Urobilinogen Pending, Ur Leukocyte Esterase Pending, Urine RBC Pending, Urine WBC Pending, Ur Squamous Epith Cells Pending, Urine Bacteria Pending, Urine Mucus Pending Current Medications Azithromycin 500 mg/ Dextrose 255 mls @ 250 mls/hr IV X1 ONE Stop: 04/21/20 23:56 Sodium Chloride () 1,000 mls @ 999 mls/hr IV .Q1H1M ONE Stop: 04/22/20 00:07 Last Admin: 04/21/20 23:20 Dose: 999 mls/hr Documented by: Assessment/Plan All Active Problems (Last Reviewed 04/22/20 @ 02:[address] Lupillo Marie MD) Pneumonia (Acute) The patient is a 69 year old M with a significant history of CHF; myelofibrosis; gout; atrial fibrillation; and thyroidectomy who presents to the emergency department with a fever of 103.5F; shortness of breath; chills; and a cough which is occasionally productive for sputum. Community-acquired pneumonia Chest x-ray independent review showed mild right perihilar infiltrate. Likely gram-positive or gram-negative. Cardiac silhouette looks mildly enlarged. Lactic acid: 0.6. Blood culture ?2 ordered at the emergency department; follow. Respiratory Gram stain and culture ordered Antibiotics: Received ceftriaxone and azithromycin at emergency department. His fever is going down so it is reasonable to continue ceftriaxone and azithromycin. If fever recurs consider broadening antibiotics to include coverage for Pseudomonas. IV hydration: Received normal saline bolus at emergency department. Legionella antigen screen and Strep antigen ordered Originally admitted to covid cohort unit. Chest x-ray is not classic for covid. With negative covid screen; enhanced covid precautions was discontinued. Check a procalcitonin. [employer] consult. Tylenol PRN. Neutropenic fever Patient with mild neutropenia of 1377 cells per microliter. Reported temperature of 103.5F at home. And low-grade fever of 99.4 Fahrenheit at the hospital. Of note he took Tylenol at home. Antibiotics as above. If fever re-occur consider broadening antibiotics. CAREY His creatinine on presentation was 1.44. Last creatinine on file at our hospital was in 2018. It ranged from 1.07 to 1.70. His creatinine from outside records on 2019 was 1.23; and on 03/13/2020 was 1.20. Further his creatinine 01/31/2020 was 1.09. Also his creatinine on 01/16/2020 was 0.95. And on 01/10/2020 his creatinine was 1.01 BUN is 40 prerenal. Likely mild CAREY. Gentle IV hydration. Avoid nephrotoxins. Check urine electrolytes for Fena. Pancytopenia Chronic. Secondary to myelofibrosis. Atrial fibrillation In sinus rhythm on presentation Sotalol continued Patient is not on home anticoagulation likely secondary to thrombocytopenia. History of congestive heart failure No echocardiogram on file. Does not appear to be in congestive heart failure at the moment. Review of old records show that patient felt he was thrown into congestive heart failure secondary to anemia. DVT prophylaxis Subcutaneous Lovenox ordered. Inpatient E&M: 34831 Init Hosp L3
[2020-04-21 23:47] LABS: Color, Urine Yellow (Yellow); Glucose, Dipstick Normal (Normal); Ketone-Dipstick Negative (Negative); Leukocyte Esterase-Dipstick 25 /ul (Negative); Nitrite-Dipstick Negative (Negative); Occult Blood-Urine 50 /ul (Negative); Protein-Dipstick 100 mg/dl (Negative); Specific Gravity, Urine 1.015 (1.002-1.030); Urine Bilirubin Dipstick Negative (Negative); Urine Clarity Clear (Clear); Urine Urobilinogen Normal (Normal)
[2020-04-21 23:56] LABS: Red Blood Cells-Urine 0-5 SEEN /hpf (0-5); White Blood Cells 0-5 SEEN /hpf (0-5)
[2020-04-22] VITALS (10 sets, daily range): BP systolic 113–131; BP diastolic 51–61; PULSE 65–85; RESP 18–24; TEMP 36.9–37.3; O2SAT 95–98; BMI 30.2
--- NOTE | 2020-04-22 00:19 | ED.RN ---
IV PUMP ERROR, MEDICATION INFUSION DELAYED. MEDICATION RESTARTED WITH NEW PUMP. MEDICATION INFUSING. PT TOLERATED WELL.
[2020-04-22] MEDS: 0.9% Normal Saline 1,000 ML 75 ML IV ×2 (01:20→16:19)
[2020-04-22] MEDS: guaiFENesin 1,200 MG Tablet 1200 MG PO ×3 (01:22→21:18)
[2020-04-22 02:36] LABS: M R Staph aureus DNA By PCR Negative (Negative); Probe Check PASS; Specimen Processing Control PASS
[2020-04-22 04:31] LABS: Hematocrit 31.3 % (40-54); Hemoglobin 9.6 g/dL (13.0-16.5); Mean Corp Hgb Conc 30.7 g/dL (32-36); Mean Corpuscular Hgb 26.7 pg (27.0-32.0); Mean Corpuscular Volume 86.9 fL (80-94); POSITIVE COUNT YES; POSITIVE DIFFERENTIAL YES; POSITIVE MORPHOLOGY YES; Platelet Count 129 K/mm3 (150-450); RBC Distribution Width CV 17.6 % (11.6-14.6); White Blood Count 1.9 K/mm3 (4.4-11.0)
[2020-04-22 04:33] LABS: Differential Indicated MANUAL DIFF
[2020-04-22 04:43] LABS: Urine Sodium 91 mmol/L (Not Establ.)
[2020-04-22 04:57] LABS: Lymphocyte 13 % (19-41); Metamyelocyte 4 % (0-1); Monocyte 4 % (0-10); Myelocyte 4 (0-0); Neutrophil-Band 6 % (0-5); Neutrophil-Segmented 73 % (47-70); Total Cells Counted 100 (MANUAL DIFF)
[2020-04-22 04:58] LABS: Absolute Lymphocyte Count 0.24 X10^3/uL (0.83-4.51); Absolute Neutrophil Count 1.5 X10^3/uL (2.0-7.7); Lymphocyte # 0.24 X10^3/ul (4.0); Platelet Estimate SLT DEC (ADEQ); Red Cell Morphology N CHROM NORMAL (NORM C&C); Tear Drop Cell 2+
[2020-04-22 05:02] LABS: ALB/GLOB Ratio 0.8 RATIO (0.9-2.4); AST(SGOT) 23 U/L (15-37); Alanine Aminotransfer ALT/SGPT 12 U/L (16-61); Alkaline Phosphatase 57 U/L (45-117); Anion Gap 4 (5-15); BUN 34 mg/dL (7-18); BUN/Creat Ratio 27.9 RATIO (10-20); Calcium,Total 7.8 mg/dL (8.5-10.1); Chloride 106 mmol/L (98-107); Creatinine, Serum 1.22 mg/dL (0.70-1.30); EST Glomerular Filtration Rate 63 mL/min (>60); Est Glom Filt Rate - Afr Amer 76 mL/min (>60); Estimated Creatinine Clearance 54.93 ml/min; Globulin 3.7 g/dL (2.2-4.2); Glucose 101 mg/dL (74-106); Potassium 5.3 mmol/L (3.5-5.1); Protein, Total 6.7 g/dL (6.4-8.2); Sodium Level 135 mmol/L (136-145)
[2020-04-22] MEDS: Levothyroxine 112 MCG Tablet 224 MCG PO (06:33)
--- NOTE | 2020-04-22 08:07 | NURSING ---
Report called to [facility] nurse for pt transfer.
--- NOTE | 2020-04-22 08:41 | CON.PCM_ITS ---
Reason for Consult Date of Consultation: 04/22/20 Reason for Consultation: Pneumonia, rule out COVID History of Present Illness: The patient is a 69-year-old male, with a history as outlined below, who presented to the emergency department on April 21 with complaints of a fever. The patient does have a history of post essential thrombocythemia myelofibrosis with cytopenia, for which he is being followed by hematology/oncology at the [facility]. The patient did report that his fever was as high as 103 ?F prior to his presentation. He did also report some generalized malaise and fatigue. He denies any significant shortness of breath. On presentation to the emergency department, the patient had a documented temperature of 99.4 ?F. He was hemodynamically stable and maintaining appropriate oxygen saturations on room air. Laboratory evaluation revealed evidence of pancytopenia. Chemistry profile was notable for a creatinine of 1.44. Urine analysis was unremarkable. Coronavirus PCR was negative. MRSA screen was negative. Plain film chest x-ray did not demonstrate any focal infiltrate or consolidation. The patient received supplemental IV fluid hydration and was started on broad-spectrum antimicrobials. He was then admitted to the medical intensive care unit for further management. Overnight, the patient has remained clinically stable. He continues to maintain appropriate oxygen saturations on room air. Past Medical History Past Medical History (Chronic Problems): Chronic Problems (Last Reviewed 04/22/20 @ 03:[address] Lupillo Marie MD) Essential thrombocytosis (Chronic) Leukopenia (Chronic) Myelofibrosis (Chronic) Anemia (Chronic) Pancytopenia (Chronic) CHF (congestive heart failure) (Chronic) Splenomegaly (Chronic) Medical History: Medical History (Last Reviewed 04/22/20 @ 03:[address] Lupillo Marie MD) CHF (congestive heart failure) I50.9 Heart disease I51.9 Hyperlipidemia E78.5 Myeloproliferative neoplasm D47.1 Thrombocytopenia D69.6 Thyroid disease E07.9 Allergies pseudoephedrine [From Sudafed] Adverse Reaction (Severe, Verified 04/21/20 21:36) Itching FEVER Home Medications: Ambulatory Orders Medication Instructions Recorded Allopurinol [Zyloprim] 300 mg PO DAILY 02/04/18 Finasteride [Proscar] 5 mg PO QHS 02/04/18 Gemfibrozil [Lopid] 600 mg PO DAILY 02/04/18 Levothyroxine [Synthroid] 224 mcg PO DAILY 02/04/18 Sotalol Hydrochloride [Betapace 80 mg PO BID 02/04/18 (Beta Wally)] Alfuzosin HCl [Alfuzosin HCl ER] 10 mg PO DAILY 04/21/20 Darbepoetin Gabriel in Polysorbat 100 mcg IJ Q14D 04/21/20 [Aranesp] Fedratinib Dihydrochloride 200 mg PO DAILY 04/21/20 [Inrebic] Surgical History: Surgical History (Last Reviewed 04/22/20 @ 03:[address] Lupillo Marie MD) H/O cardiac catheterization Z98.890 H/O prostate biopsy Z98.890 History of bone marrow biopsy Z98.890 History of thyroidectomy E89.0 Smoking Status: Former smoker Alcohol: Rare - *Family History Maternal Family History: Family History (Last Reviewed 04/22/20 @ 02:[address] Lupillo Marie MD) Mother Heart disease Dementia Father COPD (chronic obstructive pulmonary disease) Review of Systems Constitutional: Reports: Chills, Fever, Malaise, Fatigue Eyes: Denies: Blurred vision, Double vision HEENT: Denies: Head Aches, Sinus Congestion, Sinus Drainage Cardiovascular: Denies: Chest Pain, Palpitations Respiratory: Reports: Cough. Denies: Shortness of Breath Gastrointestinal: Denies: Abdominal Pain, Nausea, Vomiting Genitourinary: Denies: Dysuria Musculoskeletal: Denies: Joint Pain, Joint Tenderness Skin: Denies: Rash, Wounds Neurological: Denies: Numbness, Tingling, Focal weakness Psychiatric: Denies: Anxiety, Depression, Homicidal Ideations, Suicidal Ideations Hematologic/ Lymphatic: Reports: Anemia Patient Problems: Active and Suspected Problems (Last Reviewed 04/22/20 @ 03:[address] Lupillo Marie MD) Pneumonia (Acute) Objective: The patient's most recent lab work, culture data and imaging studies have all been personally reviewed. Coronavirus PCR was negative. Strep and urine Legionella antigens were negative. Blood cultures are currently pending. - Physical Exam Vitals/I&O's: Vital Signs Temp Pulse Resp BP Pulse Ox 99.1 F 77 22 H 113/61 98 04/22/20 04:00 04/22/20 07:00 04/22/20 04:00 04/22/20 04:00 04/22/20 04:00 Oxygen Delivery Method Room Air Weight: 193 lb 1.999 oz Body Mass Index (BMI) 30.2 Intake and Output for Last 24 Hours 04/20/20 04/21/20 04/22/20 23:59 23:59 23:59 Intake Total 1425 / 1425 Output Total 400 / 400 Balance 1025 / 1025 General: Alert, Cooperative, No apparent distress, - - Sitting in bedside recliner HEENT: Atraumatic, Normocephalic Oral: No Gingival or Mucosal Lesions/ Ulcerations Neck: Supple, No Nodes, Trachea Midline Lungs: Normal air movement Cardiovascular: Regular rate, Regular Rhythm Abdomen: Bowel Sounds Present, Soft Extremities: No clubbing, No cyanosis, No edema Skin: No breakdown Musculoskeletal: No Muscle Wasting Lymphatic: No Cervical, Supraclavicular, or Inguinal Adenopathy Neurological: Cranial nerves II-XII grossly intact, Neuro grossly intact Psych/Mental Status: Normal Affect, Appropriate Labs (Last 48 Hours) 04/21/20 04/21/20 04/21/20 22:08 22:08 22:08 WBC 1.8 L RBC 3.80 L Hgb 10.2 L Hct 33.4 L MCV 87.9 MCH 26.8 L MCHC 30.5 L RDW Std Deviation 55.8 H RDW Coeff of Rafael 17.7 H Plt Count 140 L Immature Gran % (Auto) 3.300 H Neut % (Auto) 73.2 H Lymph % (Auto) 15.9 L Dickens % (Auto) 6.0 Eos % (Auto) 0.5 Baso % (Auto) 1.1 H Absolute Neuts (auto) 1.3 L Absolute Lymphs (auto) 0.29 L Total Counted Neutrophils % (Manual) Band Neutrophils % Lymphocytes % (Manual) Monocytes % (Manual) Metamyelocytes % Myelocytes % Nucleated RBC % 0 Diff Path Review May foll Platelet Estimate RBC Morphology Tear Drop Cells Sodium 138 Potassium 4.8 Chloride 108 H Carbon Dioxide 26.0 Anion Gap 4 L BUN 40 H Creatinine 1.44 H Estim Creat Clear Calc 48.16 Est GFR (MDRD) Af Amer 63 Est GFR (MDRD) Non-Af 52 L BUN/Creatinine Ratio 27.8 H Glucose 117 H Lactic Acid 0.6 Calcium 8.2 L Total Bilirubin AST ALT Alkaline Phosphatase Total Protein Albumin Globulin Albumin/Globulin Ratio Procalcitonin Urine Color Urine Clarity Urine pH Ur Specific [place] Urine Protein Urine Glucose (UA) Urine Ketones Urine Occult Blood Urine Nitrite Urine Bilirubin Urine Urobilinogen Ur Leukocyte Esterase Urine RBC Urine WBC Ur Squamous Epith Cells Urine Bacteria Urine Mucus Ur Random Sodium Urine Creatinine COVID-19 (RADHA) MRSA (PCR) 04/21/20 04/21/20 04/21/20 22:08 22:28 23:25 WBC RBC Hgb Hct MCV MCH MCHC RDW Std Deviation RDW Coeff of Rafael Plt Count Immature Gran % (Auto) Neut % (Auto) Lymph % (Auto) Dickens % (Auto) Eos % (Auto) Baso % (Auto) Absolute Neuts (auto) Absolute Lymphs (auto) Total Counted Neutrophils % (Manual) Band Neutrophils % Lymphocytes % (Manual) Monocytes % (Manual) Metamyelocytes % Myelocytes % Nucleated RBC % Diff Path Review Platelet Estimate RBC Morphology Tear Drop Cells Sodium Potassium Chloride Carbon Dioxide Anion Gap BUN Creatinine Estim Creat Clear Calc Est GFR (MDRD) Af Amer Est GFR (MDRD) Non-Af BUN/Creatinine Ratio Glucose Lactic Acid Calcium Total Bilirubin AST ALT Alkaline Phosphatase Total Protein Albumin Globulin Albumin/Globulin Ratio Procalcitonin Pending Urine Color Yellow Urine Clarity Clear Urine pH 5.0 Ur Specific [place] 1.015 Urine Protein 100 H Urine Glucose (UA) Normal Urine Ketones Negative Urine Occult Blood 50 H Urine Nitrite Negative Urine Bilirubin Negative Urine Urobilinogen Normal Ur Leukocyte Esterase 25 H Urine RBC 0-5 SEEN Urine WBC 0-5 SEEN Ur Squamous Epith Cells 0 SEEN Urine Bacteria 0 SEEN Urine Mucus 0 SEEN Ur Random Sodium Urine Creatinine COVID-19 (RADHA) Not Detected MRSA (PCR) 04/22/20 04/22/20 04/22/20 00:50 04:10 04:10 WBC 1.9 L RBC 3.60 L Hgb 9.6 L Hct 31.3 L MCV 86.9 MCH 26.7 L MCHC 30.7 L RDW Std Deviation 55.0 H RDW Coeff of Rafael 17.6 H Plt Count 129 L Immature Gran % (Auto) Neut % (Auto) Not Reportable Lymph % (Auto) Dickens % (Auto) Eos % (Auto) Baso % (Auto) Absolute Neuts (auto) 1.5 L Absolute Lymphs (auto) 0.24 L Total Counted 100 Neutrophils % (Manual) 73 H Band Neutrophils % 6 H Lymphocytes % (Manual) 13 L Monocytes % (Manual) 4 Metamyelocytes % 4 H Myelocytes % 4 H Nucleated RBC % Diff Path Review May foll Platelet Estimate SLT DEC RBC Morphology N CHROM Tear Drop Cells 2+ Sodium 135 L Potassium 5.3 H Chloride 106 Carbon Dioxide 25.0 Anion Gap 4 L BUN 34 H Creatinine 1.22 Estim Creat Clear Calc 54.93 Est GFR (MDRD) Af Amer 76 Est GFR (MDRD) Non-Af 63 BUN/Creatinine Ratio 27.9 H Glucose 101 Lactic Acid Calcium 7.8 L Total Bilirubin 0.60 AST 23 ALT 12 L Alkaline Phosphatase 57 Total Protein 6.7 Albumin 3.0 L Globulin 3.7 Albumin/Globulin Ratio 0.8 L Procalcitonin Urine Color Urine Clarity Urine pH Ur Specific [place] Urine Protein Urine Glucose (UA) Urine Ketones Urine Occult Blood Urine Nitrite Urine Bilirubin Urine Urobilinogen Ur Leukocyte Esterase Urine RBC Urine WBC Ur Squamous Epith Cells Urine Bacteria Urine Mucus Ur Random Sodium Urine Creatinine COVID-19 (RADHA) MRSA (PCR) Negative 04/22/20 04:10 WBC RBC Hgb Hct MCV MCH MCHC RDW Std Deviation RDW Coeff of Rafael Plt Count Immature Gran % (Auto) Neut % (Auto) Lymph % (Auto) Dickens % (Auto) Eos % (Auto) Baso % (Auto) Absolute Neuts (auto) Absolute Lymphs (auto) Total Counted Neutrophils % (Manual) Band Neutrophils % Lymphocytes % (Manual) Monocytes % (Manual) Metamyelocytes % Myelocytes % Nucleated RBC % Diff Path Review Platelet Estimate RBC Morphology Tear Drop Cells Sodium Potassium Chloride Carbon Dioxide Anion Gap BUN Creatinine Estim Creat Clear Calc Est GFR (MDRD) Af Amer Est GFR (MDRD) Non-Af BUN/Creatinine Ratio Glucose Lactic Acid Calcium Total Bilirubin AST ALT Alkaline Phosphatase Total Protein Albumin Globulin Albumin/Globulin Ratio Procalcitonin Urine Color Urine Clarity Urine pH Ur Specific [place] Urine Protein Urine Glucose (UA) Urine Ketones Urine Occult Blood Urine Nitrite Urine Bilirubin Urine Urobilinogen Ur Leukocyte Esterase Urine RBC Urine WBC Ur Squamous Epith Cells Urine Bacteria Urine Mucus Ur Random Sodium 91 Urine Creatinine 42.30 COVID-19 (RADHA) MRSA (PCR) Microbiology 04/21/20 23:25 Urine, Clean Catch Legionella Antigen - Final 04/21/20 23:25 Urine, Clean Catch Streptococcus pneumoniae Antigen (M - Final Clinical Impression(s) from Imaging Studies Chest X-Ray 04/21/20 22:26 IMPRESSION: Mild right perihilar pneumonia. Electronically Signed: Lloyd Emerson MD at 22:52 EDT Tel , Service support , Current Medications Acetaminophen (Tylenol) 650 mg PO Q6H PRN PRN PRN Reason: Pain Score 1-10/Temp > 100.7 F [facility] Enoxaparin Sodium (Lovenox) 40 mg SC DAILY [facility] Finasteride (Proscar) 5 mg PO QHS [facility] Guaifenesin (Mucinex) 1,200 mg PO BID [facility] Last Admin: 04/22/20 01:22 Dose: 1,200 mg Documented by: Sodium Chloride () 250 mls @ 15 mls/hr IV .[id number] PRN PRN Reason: Saline Flush Sodium Chloride () 250 mls @ 15 mls/hr IV .[id number] PRN PRN Reason: Additional IVPB Infusion Sodium Chloride () 1,000 mls @ 75 mls/hr IV .[id number] [facility] Last Admin: 04/22/20 01:20 Dose: 75 mls/hr Documented by: Azithromycin 500 mg/ Dextrose 255 mls @ 250 mls/hr IV Q24@2200 [facility] Ceftriaxone Sodium 1 gm/ (Sodium Chloride) 50 mls @ 100 mls/hr IV Q24@2200 [facility] Levothyroxine Sodium (Synthroid) 224 mcg PO DAILY@0600 [facility] Last Admin: 04/22/20 06:33 Dose: 224 mcg Documented by: Melatonin (Melatonin) 3 mg PO QHS PRN PRN PRN Reason: INSOMNIA Non-Formulary Medication (Darbepoetin Gabriel In Polysorbat [Aranesp]) 100 mcg IJ QWEEK [facility] Ondansetron HCl (Zofran) 4 mg IV Q8H PRN PRN PRN Reason: NAUSEA/VOMITING Sodium Chloride () 10 - 40 ml IV UD PRN PRN Reason: SALINE FLUSH Sotalol HCl (Betapace (G)) 80 mg PO BID [facility] Tamsulosin HCl (Flomax) 0.4 mg PO DAILY YARELI Assessment/Plan All Active Problems (Last Reviewed 04/22/20 @ 03:[address] Lupillo Marie MD) Pneumonia (Acute) RECOMMENDATIONS: 1. Continue IV antibiotics for 24 hours. The patient can likely be transitioned to p.o. tomorrow. 2. Encourage incentive spirometer use and mobilize patient as tolerated. 3. Given the patient's lack of further ICU or pulmonary needs, will sign off. Please call with any additional questions. IMPRESSIONS: 1. Community-acquired pneumonia The patient initially presented to the hospital with a subjective fever and mild, right perihilar infiltrate. The patient does have baseline pancytopenia. He is currently on appropriate antimicrobials. I would plan to continue the IV antibiotics for the next 24 hours. If the patient remains clinically stable, he can be transitioned to p.o. Levaquin tomorrow to complete a 7-day treatment course. The patient is currently maintaining appropriate oxygen saturations on room air. No further pulmonary work-up is indicated at this time. 2. Essential thrombocythemia myelofibrosis with cytopenia/gout/BPH/hypothyroidism Complicates care, management, recovery and prognosis. Continue home medications as indicated. This note was generated with [employer] software. It may contain incorrect words, spelling, and punctuation that were not noted in checking the note before signing. Inpatient E&M: 50616 Init Hosp L3
--- NOTE | 2020-04-22 08:56 | PN_ITS ---
Patient Problems: Active and Suspected Problems (Last Reviewed 04/22/20 @ 03:[address] Lupillo Marie MD) Pneumonia (Acute) Reason for Visit: Follow-up pneumonia complicated with diagnosis of myelofibrosis on medication. Objective: Patient was diagnosed with myelofibrosis about 2013. He has chronic p ancytopenia, WBC count generally is around 1.2-1.5 thousand or last 3 years. He also follows [facility] oncologist Dr. Jesus Christiansen He was admitted with temperature 93.5 ?F at home with mild cough but denies excessive shortness of breath, dyspnea at rest or hemoptysis. He has history of chronic bruising. He also had clots in the urinary tract in the past. Currently heart rate is controlled in 70s, afebrile respiratory rate around 20. Breathing on room air Physical exam General: Alert, Oriented x3, Cooperative HEENT: Atraumatic, PERRLA, EOMI, Normocephalic Oral: No Gingival or Mucosal Lesions/ Ulcerations Neck: Supple, No JVD, Negative Carotid Bruits Lungs: Air entry diminished in bilateral lung bases. No crepitation/rhonchi. No tachypnea or hypoxia Cardiovascular: Regular rate, Regular Rhythm, Normal S1, Normal S2, No murmurs Abdomen: Bowel Sounds Present, Soft, Non Tender, distended. Massive splenomegaly with spleen tip palpable up to umbilicus level. Mild tenderness in right upper quadrant at the liver edge. : No renal angle tenderness. No suprapubic tenderness. Extremities: No edema, Capillary Refill Less than 3 Seconds Skin: No rashes, No breakdown Musculoskeletal: No Tenderness to Palpation of Joints or Extremities Neurological: Cranial nerves II-XII grossly intact, Deep Tendon Reflexes 2+/4 and Symmetrical, Neuro grossly intact Psych/Mental Status: Normal Affect, Appropriate. Vitals/I&O's: Vital Signs Temp Pulse Resp BP Pulse Ox 99.1 F 77 22 H 113/61 98 04/22/20 04:00 04/22/20 07:00 04/22/20 04:00 04/22/20 04:00 04/22/20 04:00 Oxygen Delivery Method Room Air Weight: 193 lb 1.999 oz Body Mass Index (BMI) 30.2 Intake and Output for Last 24 Hours 04/20/20 04/21/20 04/22/20 23:59 23:59 23:59 Intake Total 1425 / 1425 Output Total 400 / 400 Balance 1025 / 1025 Microbiology Past 72 Hours 04/21/20 23:25 Urine, Clean Catch Legionella Antigen - Final 04/21/20 23:25 Urine, Clean Catch Streptococcus pneumoniae Antigen (M - Final Laboratory Results 04/21/20 22:08: WBC 1.8 L, RBC 3.80 L, Hgb 10.2 L, Hct 33.4 L, MCV 87.9, MCH 26.8 L, MCHC 30.5 L, RDW Std Deviation 55.8 H, RDW Coeff of Rafael 17.7 H, Plt Count 140 L, Immature Gran % (Auto) 3.300 H, Neut % (Auto) 73.2 H, Lymph % (Auto) 15.9 L, Butts % (Auto) 6.0, Eos % (Auto) 0.5, Baso % (Auto) 1.1 H, Absolute Neuts (auto) 1.3 L, Absolute Lymphs (auto) 0.29 L, Nucleated RBC % 0, Diff Path Review November04/21/20 22:08: Sodium 138, Potassium 4.8, Chloride 108 H, Carbon Dioxide 26.0, Anion Gap 4 L, BUN 40 H, Creatinine 1.44 H, Estim Creat Clear Calc 48.16, Est GFR (MDRD) Af Amer 63, Est GFR (MDRD) Non-Af 52 L, BUN/Creatinine Ratio 27.8 H, Glucose 117 H, Calcium 8.2 L 04/21/20 22:08: Lactic Acid 0.6 04/21/20 22:08: Procalcitonin Pending 04/21/20 22:28: COVID-19 (RADHA) Not Detected 04/21/20 23:25: Urine Color Yellow, Urine Clarity Clear, Urine pH 5.0, Ur Specific [place] 1.015, Urine Protein 100 H, Urine Glucose (UA) Normal, Urine Ketones Negative, Urine Occult Blood 50 H, Urine Nitrite Negative, Urine Bilirubin Negative, Urine Urobilinogen Normal, Ur Leukocyte Esterase 25 H, Urine RBC 0-5 SEEN, Urine WBC 0-5 SEEN, Ur Squamous Epith Cells 0 SEEN, Urine Bacteria 0 SEEN, Urine Mucus 0 SEEN 04/22/20 00:50: MRSA (PCR) Negative 04/22/20 04:10: WBC 1.9 L, RBC 3.60 L, Hgb 9.6 L, Hct 31.3 L, MCV 86.9, MCH 26.7 L, MCHC 30.7 L, RDW Std Deviation 55.0 H, RDW Coeff of Rafael 17.6 H, Plt Count 129 L, Neut % (Auto) Not Reportable, Absolute Neuts (auto) 1.5 L, Absolute Lymphs (auto) 0.24 L, Total Counted 100, Neutrophils % (Manual) 73 H, Band Neutrophils % 6 H, Lymphocytes % (Manual) 13 L, Monocytes % (Manual) 4, Metamyelocytes % 4 H , Myelocytes % 4 H, Diff Path Review May foll, Platelet Estimate SLT DEC, RBC Morphology N CHROM, Tear Drop Cells 2+ 04/22/20 04:10: Sodium 135 L, Potassium 5.3 H, Chloride 106, Carbon Dioxide 25.0, Anion Gap 4 L, BUN 34 H, Creatinine 1.22, Estim Creat Clear Calc 54.93, Est GFR (MDRD) Af Amer 76, Est GFR (MDRD) Non-Af 63, BUN/Creatinine Ratio 27.9 H , Glucose 101, Calcium 7.8 L, Total Bilirubin 0.60, AST 23, ALT 12 L, Alkaline Phosphatase 57, Total Protein 6.7, Albumin 3.0 L, Globulin 3.7, Albumin/Globulin Ratio 0.8 L 04/22/20 04:10: Ur Random Sodium 91, Urine Creatinine 42.30 Current Medications Acetaminophen (Tylenol) 650 mg PO Q6H PRN PRN PRN Reason: Pain Score 1-10/Temp > 100.7 F Allopurinol (Zyloprim) 300 mg PO DAILY[facility] Enoxaparin Sodium (Lovenox) 40 mg SC DAILY [facility] Finasteride (Proscar) 5 mg PO QHS [facility] Gemfibrozil (Lopid) 600 mg PO DAILYCM [facility] Guaifenesin (Mucinex) 1,200 mg PO BID [facility] Last Admin: 04/22/20 01:22 Dose: 1,200 mg Documented by: Sodium Chloride () 250 mls @ 15 mls/hr IV .[id number] PRN PRN Reason: Saline Flush Sodium Chloride () 250 mls @ 15 mls/hr IV .[id number] PRN PRN Reason: Additional IVPB Infusion Sodium Chloride () 1,000 mls @ 75 mls/hr IV .[id number] [facility] Last Admin: 04/22/20 01:20 Dose: 75 mls/hr Documented by: Azithromycin 500 mg/ Dextrose 255 mls @ 250 mls/hr IV Q24@2200 [facility] Ceftriaxone Sodium 1 gm/ (Sodium Chloride) 50 mls @ 100 mls/hr IV Q24@2200 [facility] Levothyroxine Sodium (Synthroid) 224 mcg PO DAILY@0600 [facility] Last Admin: 04/22/20 06:33 Dose: 224 mcg Documented by: Melatonin (Melatonin) 3 mg PO QHS PRN PRN PRN Reason: INSOMNIA Non-Formulary Medication (Darbepoetin Gabriel In Polysorbat [Aranesp]) 100 mcg IJ QWEEK [facility] Ondansetron HCl (Zofran) 4 mg IV Q8H PRN PRN PRN Reason: NAUSEA/VOMITING Sodium Chloride () 10 - 40 ml IV UD PRN PRN Reason: SALINE FLUSH Sotalol HCl (Betapace (G)) 80 mg PO BID [facility] Tamsulosin HCl (Flomax) 0.4 mg PO DAILY [facility] STROKE Vital Signs/Narrative: Vital Signs Pulse 04/22/20 07:00 77 Medical Necessity - Tobacco Use Smoking Status: Former smoker Assessment/Plan All Active Problems (Last Reviewed 04/22/20 @ 03:[address] Lupillo Marie MD) Pneumonia (Acute) The patient is a 69 year old M with a significant history of CHF; myelofibrosis with essential thrombocythemia; gout; atrial fibrillation; and thyroidectomy was admitted in ICU with a fever of 103.5F; shortness of breath; chills; and a cough which is occasionally productive for sputum. 1. Right perihilar community-acquired pneumonia: Chest x-ray shows right perihilar infiltrate. Patient is on IV ceftriaxone and Zithromax. Afebrile while in the ICU. Urinary antigens are are negative. Respiratory panel and blood cultures are pending. Seen by makeup sales advisor. Patient is hemodynamically stable therefore transfer to Med[facility] floor. Procalcitonin 0.8, low. 2. neutropenic fever: ANC 1.5 thousand. Total WBC count 1.9 thousand, improving. Currently afebrile and WBC showing improving trend therefore no indication for Neupogen. 3. CAREY most likely prerenal: BUN/creatinine is improving 34/1.22. Continue IV fluid normal saline. Baseline creatinine around 1. Urine random sodium 91, urine creatinine 42.3. 4. Pancytopenia with thrombocytopenia secondary to myelofibrosis: Patient follows [facility] oncologist Dr. Jesus Christiansen. On radotinib and darbepoetin. Chronic in nature. VTE prophylaxis: Lovenox 40 mils subcu daily. VTE prophylaxis Inpatient E&M: 27358 Subs Hosp L2
[2020-04-22] MEDS: Sotalol Hydrochloride 80 MG Tablet PO ×2 (09:31→21:15)
[2020-04-22] MEDS: Tamsulosin HCl 0.4 MG Capsule PO ×2 (09:31→21:16)
[2020-04-22] MEDS: Allopurinol 300 MG Tablet PO (09:31)
[2020-04-22] MEDS: Acetaminophen 325 MG Tablet 650 MG PO ×2 (09:33→19:26)
--- NOTE | 2020-04-22 12:07 | CASEMGMT ---
RN CM Assessment Note Introduced role of CM to patient and his . Demographics, PCP verified. Patient is awake, alert and able to participate in assessment. He states he is independent @ home, does not use ambulatory DME and plans to return home on dc. Diagnosis: pneumonia, COVID-19 testing negative. PCP: Dr. Diogenes Suarez Specialists: [facility] physician for myelofibrosis; Dr. Baxter, urology; List given to patient for local cardiologists by nursing. Insurance: [facility]erred [facility]acy[facility] Prescription Benefit: yes LNOK: , Penny Living Arrangements: Lives with independently. No care needs identified. Patient states he is independent in ADL and IADL. Tranportation: Drives, but can drive if needed. DME: none HHC: none SNF: none Patient DC Goals: Home on discharge DC Plan: Anticipate Home, no needs identified. Patient is currently on room air. Angelina COEL RN ACM
[2020-04-22 12:18] LABS: Pathologist Review Reviewed
[2020-04-22 12:19] LABS: Pathologist Review Reviewed
[2020-04-22] MEDS: 0.9% Saline Lock 10 ML Syringe IV (16:19)
[2020-04-22] MEDS: Finasteride 5 MG Tablet PO (21:15)
[2020-04-23 03:31] VITALS: BP 115/58; PULSE 75; RESP 18; TEMP 37.7; O2SAT 96
[2020-04-23 05:43] LABS: Absolute Lymphocyte Count 0.46 X10^3/uL (0.83-4.51); Absolute Neutrophil Count 1.3 X10^3/uL (2.0-7.7); Basophil# 0.02 X10^3/uL; Differential Indicated SCAN CRITERIA MET; Eosinophil# 0.01 X10^3/uL; Eosinophils% 0.5 % (0-5); Hematocrit 30.7 % (40-54); Hemoglobin 9.4 g/dL (13.0-16.5); Lymphocyte # 0.46 X10^3/ul (4.0); Lymphocyte % 23.2 % (19-41); Mean Corp Hgb Conc 30.6 g/dL (32-36); Mean Corpuscular Hgb 26.9 pg (27.0-32.0); Mean Corpuscular Volume 87.7 fL (80-94); Monocyte# 0.16 X10^3/uL; Monocyte% 8.1 % (0-10); NRBC Flagged by Analyzer 0 % (0-5); Neutrophil % 65.7 % (47-70); POSITIVE DIFFERENTIAL YES; POSITIVE MORPHOLOGY YES; Platelet Count 138 K/mm3 (150-450); RBC Distribution Width CV 17.8 % (11.6-14.6); RBC Distribution Width SD 55.7 fl (35.1-43.9)
[2020-04-23] MEDS: Levothyroxine 112 MCG Tablet 224 MCG PO (05:43)
[2020-04-23 06:01] LABS: ALB/GLOB Ratio 0.8 RATIO (0.9-2.4); AST(SGOT) 12 U/L (15-37); Alanine Aminotransfer ALT/SGPT 14 U/L (16-61); Alkaline Phosphatase 50 U/L (45-117); Anion Gap 5 (5-15); BUN 30 mg/dL (7-18); BUN/Creat Ratio 23.4 RATIO (10-20); Calcium,Total 7.6 mg/dL (8.5-10.1); Chloride 105 mmol/L (98-107); Creatinine, Serum 1.28 mg/dL (0.70-1.30); EST Glomerular Filtration Rate 59 mL/min (>60); Est Glom Filt Rate - Afr Amer 72 mL/min (>60); Estimated Creatinine Clearance 52.36 ml/min; Globulin 3.6 g/dL (2.2-4.2); Glucose 85 mg/dL (74-106); Potassium 4.1 mmol/L (3.5-5.1); Protein, Total 6.6 g/dL (6.4-8.2); Sodium Level 136 mmol/L (136-145)
[2020-04-23 06:14] LABS: Differential Comment SCANNED
[2020-04-23] MEDS: Acetaminophen 325 MG Tablet 650 MG PO (08:07)
[2020-04-23] MEDS: Gemfibrozil 600 MG Tablet PO (08:08)
[2020-04-23] MEDS: Allopurinol 300 MG Tablet PO (08:08)
[2020-04-23 09:00] VITALS: RESP 18
[2020-04-23 09:01] VITALS: BP 121/54; PULSE 83; RESP 18; TEMP 36.6; O2SAT 98
[2020-04-23] MEDS: Fluticasone 0.05% 1 SPRAY NASAL.SRY NASAL (09:31)
[2020-04-23] MEDS: Loratadine 10 MG Tablet PO (09:31)
[2020-04-23] MEDS: guaiFENesin 1,200 MG Tablet 1200 MG PO (09:32)
[2020-04-23] MEDS: Sotalol Hydrochloride 80 MG Tablet PO (09:33)
[2020-04-23] MEDS: Enoxaparin 40 MG/0.4 ML Syringe SC (09:33)
--- NOTE | 2020-04-23 09:42 | DCINST_ITS ---
- Discharge Diagnoses Current Active Problems: Current Active and Chronic Problems (Last Reviewed 04/22/20 @ 03:[address] Lupillo Marie MD) Pneumonia (Acute) You will use the following diet at home:: Cardiac Your food should be the consistency of: Regular Discharge Activity: May Not Drive - for 1 week until see PCP Call your doctor if you observe: Fever of 101 or Higher, Numbness or Tingling, Change in Color, Inability to urinate, Shortness of breath, Dizziness, Fainting spells, Swelling in the ankles, Chest pain, Prolonged hiccoughing, Increased palpitations (irregular heartbeat), Calf discomfort, Uncontrolled pain Additional Instructions: Patient was advised to notify his oncologist Dr. Jesus Christiansen about his admission for pneumonia and follow-up in 4 weeks. Allergies/Adverse Reactions: Allergies pseudoephedrine [From Sudafed] Adverse Reaction (Severe, Verified 04/21/20 21:36) Itching FEVER Medications to take at Discharge Allopurinol [Zyloprim] 300 mg PO DAILY 02/04/18 Finasteride [Proscar] 5 mg PO QHS 02/04/18 Gemfibrozil [Lopid] 600 mg PO DAILY 02/04/18 Levothyroxine [Synthroid] 224 mcg PO DAILY 02/04/18 Sotalol Hydrochloride [Betapace (Beta [place])] 80 mg PO BID 02/04/18 Alfuzosin HCl [Alfuzosin HCl ER] 10 mg PO DAILY 04/21/20 Darbepoetin Gabriel in Polysorbat [Aranesp] 100 mcg IJ Q14D 04/21/20 Fedratinib Dihydrochloride [Inrebic] 200 mg PO DAILY 04/21/20 Fluticasone 0.05% [Flonase Nasal [place]] 1 spray NASAL BID 5 Days #1 nasal.sry 04/23/20 Guaifenesin [Mucinex] 1,200 mg PO BID #14 tab 04/23/20 levoFLOXacin tablet [Levaquin tablet] 500 mg PO DAILY #4 tab 04/23/20 The following prescriptions were given: Fluticasone 0.05% [Flonase Nasal [place]] 1 spray NASAL BID 5 Days #1 nasal.sry Transmission Status: Pending to [facility] levoFLOXacin tablet [Levaquin tablet] 500 mg PO DAILY #4 tab Transmission Status: Pending to [facility] Guaifenesin [Mucinex] 1,200 mg PO BID #14 tab Transmission Status: Pending to [facility] Primary Care Physician: Diogenes Suarez DO [Primary Care Provider] - Please follow up with your Primary Care Physician in: IN 1-2 WEEKS Test Results: Test results from this visit will be discussed in further detail at your follow- up appointment, if applicable.
--- NOTE | 2020-04-23 09:45 | DS.PCM_ITS ---
Discharge Date and Diagnosis - Problem List Patient Problems: Active and Suspected Problems (Last Reviewed 04/22/20 @ 03:[address] Lupillo Marie MD) Pneumonia (Acute) Date of Admission: 04/21/20 Date of Discharge: 04/23/20 - Primary Discharge Diagnosis Acute Problems: Active Problems (Last Reviewed 04/22/20 @ 03:[address] Lupillo Marie MD) Pneumonia (Acute) Right perihilar community-acquired pneumonia with neutropenic fever - Secondary Discharge Diagnosis Chronic Problems: Chronic Problems (Last Reviewed 04/22/20 @ 03:[address] Lupillo Marie MD) Essential thrombocytosis (Chronic) Leukopenia (Chronic) Myelofibrosis (Chronic) Anemia (Chronic) Pancytopenia (Chronic) CHF (congestive heart failure) (Chronic) Splenomegaly (Chronic) Hospital Course and Treatment Summary of Care Provided: The patient is a 69 year old M with a significant history of CHF; myelofibrosis with essential thrombocythemia; gout; atrial fibrillation; and thyroidectomy was admitted in ICU with a fever of 103.5F; shortness of breath; chills; and a cough which is occasionally productive for sputum. 1. Right perihilar community-acquired pneumonia: Chest x-ray shows right perihilar infiltrate. Patient is on IV ceftriaxone and Zithromax. Afebrile while in the ICU. Urinary antigens are are negative. Respiratory panel is negative. Gram stain of sputum culture shows normal respiratory lu seen by gynecology teacher. Procalcitonin 0.8, low. Patient is discharged on Levaquin to complete a total of 7 days of antibiotics along with Mucinex and Flonase nasal spray. 2. neutropenic fever with pancytopenia: Currently afebrile and WBC showing improving trend therefore no indication for Neupogen. Last WBC count 1999, ANC 1.3 thousand. Platelet count 138,000. H&H 9.4/30 3. CAERY most likely prerenal: BUN/creatinine improved to 1.28. Patient was treated with IV fluid normal saline. Baseline creatinine around 1. Urine random sodium 91, urine creatinine 42.3. 4. Pancytopenia with thrombocytopenia secondary to myelofibrosis: Patient [facility] oncologist Dr. Jesus Christiansen. On radotinib and darbepoetin. Chronic in nature. VTE prophylaxis: Lovenox 40 mils subcu daily. VTE prophylaxis Discharge medication reconciliation done. Discharge follow-up instructions completed. Discharge process discussed with the patient and all questions were answered to patient's satisfaction. Patient prescription sent to patient's pharmacy Total time spent, exact 35 minutes on discharge meds reconciliation, examination, coordination of care with nurses and ancillary staff, review of imaging and blood test and discussion with the patient on follow-up instructions Patient Problems: Active and Suspected Problems (Last Reviewed 04/22/20 @ 03:[address] Lupillo Marie MD) Pneumonia (Acute) Objective: Patient overall feels good. He has a mild headache, sinus congestion/stuffy nose. Tylenol, Claritin and Flonase was given. Patient feels better. Hemodynamically, blood pressure, heart rate and pulse ox are controlled and in normal range. Physical exam General: Alert, Oriented x3, Cooperative HEENT: Atraumatic, PERRLA, EOMI, Normocephalic Oral: No Gingival or Mucosal Lesions/ Ulcerations. No oropharyngeal erythema or enlarged lymphoid follicle Neck: Supple, No JVD, Negative Carotid Bruits Lungs: Air entry diminished in bilateral lung bases. No crepitation/rhonchi. No tachypnea or hypoxia Cardiovascular: Regular rate, Regular Rhythm, Normal S1, Normal S2, No murmurs Abdomen: Bowel Sounds Present, Soft, Non Tender, distended. Massive splenomegaly with spleen tip palpable up to umbilicus level. Liver palpable at the right costal margin. : No renal angle tenderness. No suprapubic tenderness. Extremities: No edema, Capillary Refill Less than 3 Seconds Skin: No rashes, No breakdown Musculoskeletal: No Tenderness to Palpation of Joints or Extremities Neurological: Cranial nerves II-XII grossly intact, Deep Tendon Reflexes 2+/4 and Symmetrical, Neuro grossly intact Psych/Mental Status: Normal Affect, Appropriate. - Physical Exam Vitals/I&O's: Vital Signs Temp Pulse Resp BP Pulse Ox 97.9 F 83 18 121/54 H 98 04/23/20 09:01 04/23/20 09:01 04/23/20 09:01 04/23/20 09:01 04/23/20 09:01 Oxygen Delivery Method Room Air Weight: 193 lb 1.999 oz Body Mass Index (BMI) 30.2 Intake and Output for Last 24 Hours 1004/22/20 04/23/20 23:59 23:59 23:59 Intake Total 4027.50 / 4427.50 1242.5 / 1242.5 Output Total 400 / 575 925 / 925 Balance 3627.50 / 3852.50 317.5 / 317.5 Microbiology Past 72 Hours 04/22/20 16:30 Sputum, Expectorated/Coughed Gram Stain - Final 04/22/20 10:50 Mucosa - Nasopharyngeal Respiratory Panel (PCR) - Final 04/21/20 23:25 Urine, Clean Catch Legionella Antigen - Final 04/21/20 23:25 Urine, Clean Catch Streptococcus pneumoniae Antigen (M - Final Laboratory Results 04/21/20 22:08: Diff Path Review Reviewed 04/21/20 22:08: Procalcitonin Pending 04/22/20 04:10: Diff Path Review Reviewed 04/23/20 05:17: WBC 2.0 L, RBC 3.50 L, Hgb 9.4 L, Hct 30.7 L, MCV 87.7, MCH 26.9 L, MCHC 30.6 L, RDW Std Deviation 55.7 H, RDW Coeff of Rafael 17.8 H, Plt Count 138 L, Immature Gran % (Auto) 1.500 H, Neut % (Auto) 65.7, Lymph % (Auto) 23.2, Hardy % (Auto) 8.1, Eos % (Auto) 0.5, Baso % (Auto) 1.0, Absolute Neuts (auto) 1.3 L, Absolute Lymphs (auto) 0.46 L, Nucleated RBC % 0, Differential Comment SCANNED, Diff Path Review November04/23/20 05:17: Sodium 136, Potassium 4.1, Chloride 105, Carbon Dioxide 26.0, Anion Gap 5, BUN 30 H, Creatinine 1.28, Estim Creat Clear Calc 52.36, Est GFR (MDRD) Af Amer 72, Est GFR (MDRD) Non-Af 59 L, BUN/Creatinine Ratio 23.4 H, Glucose 85, Calcium 7.6 L, Total Bilirubin 0.40, AST 12 L, ALT 14 L, Alkaline Phosphatase 50, Total Protein 6.6, Albumin 3.0 L, Globulin 3.6, Albumin/Globulin Ratio 0.8 L Current Medications Acetaminophen (Tylenol) 650 mg PO Q6H PRN PRN PRN Reason: Pain Score 1-10/Temp > 100.7 F Last Admin: 04/23/20 08:07 Dose: 650 mg Documented by: [facility] Last Admin: 04/23/20 08:08 Dose: 300 mg Documented by: Enoxaparin Sodium (Lovenox) 40 mg SC DAILY [facility] Last Admin: 04/23/20 09:33 Dose: 40 mg Documented by: Finasteride (Proscar) 5 mg PO QHS [facility] Last Admin: 04/22/20 21:15 Dose: 5 mg Documented by: Fluticasone Propionate (Flonase Nasal [place]) 1 spray NASAL BID [facility] Last Admin: 04/23/20 09:31 Dose: 1 spray Documented by: [facility]roz[facility] ([facility]id) [facility] Last Admin: 04/23/20 08:08 Dose: 600 mg Documented by: Guaifenesin (Mucinex) 1,200 mg PO BID [facility] Last Admin: 04/23/20 09:32 Dose: 1,200 mg Documented by: Sodium Chloride () 250 mls @ 15 mls/hr IV .[id number] PRN PRN Reason: Saline Flush Sodium Chloride () 250 mls @ 15 mls/hr IV .[id number] PRN PRN Reason: Additional IVPB Infusion Levofloxacin (Levaquin Tablet) 500 mg PO X1 ONE Stop: 04/23/20 10:01 Levothyroxine Sodium (Synthroid) 224 mcg PO DAILY@0600 [facility] Last Admin: 04/23/20 05:43 Dose: 224 mcg Documented by: Melatonin (Melatonin) 3 mg PO QHS PRN PRN PRN Reason: INSOMNIA Ondansetron HCl (Zofran) 4 mg IV Q8H PRN PRN PRN Reason: NAUSEA/VOMITING Sodium Chloride () 10 - 40 ml IV UD PRN PRN Reason: SALINE FLUSH Last Admin: 04/22/20 16:19 Dose: 10 ml Documented by: Sotalol HCl (Betapace (G)) 80 mg PO BID [facility] Last Admin: 04/23/20 09:33 Dose: 80 mg Documented by: Tamsulosin HCl (Flomax) 0.4 mg PO [facility] Last Admin: 04/22/20 21:16 Dose: 0.4 mg Documented by: Discharge Activity: May Not Drive - for 1 week until see PCP Call your doctor if you observe: Fever of 101 or Higher, Numbness or Tingling, Change in Color, Inability to urinate, Shortness of breath, Dizziness, Fainting spells, Swelling in the ankles, Chest pain, Prolonged hiccoughing, Increased palpitations (irregular heartbeat), Calf discomfort, Uncontrolled pain Home Medications: Medications to take at Discharge Allopurinol [Zyloprim] 300 mg PO DAILY 02/04/18 Finasteride [Proscar] 5 mg PO QHS 02/04/18 Gemfibrozil [Lopid] 600 mg PO DAILY 02/04/18 Levothyroxine [Synthroid] 224 mcg PO DAILY 02/04/18 Sotalol Hydrochloride [Betapace (Beta [place])] 80 mg PO BID 02/04/18 Alfuzosin HCl [Alfuzosin HCl ER] 10 mg PO DAILY 04/21/20 Darbepoetin Gabriel in Polysorbat [Aranesp] 100 mcg IJ Q14D 04/21/20 Fedratinib Dihydrochloride [Inrebic] 200 mg PO DAILY 04/21/20 Fluticasone 0.05% [Flonase Nasal [place]] 1 spray NASAL BID 5 Days #1 nasal.sry 04/23/20 Guaifenesin [Mucinex] 1,200 mg PO BID #14 tab 04/23/20 levoFLOXacin tablet [Levaquin tablet] 500 mg PO DAILY #4 tab 04/23/20 Following Prescriptions Were Given to Patient: Fluticasone 0.05% [Flonase Nasal [place]] 1 spray NASAL BID 5 Days #1 nasal.sry Transmission Status: Received by [facility] [employer] levoFLOXacin tablet [Levaquin tablet] 500 mg PO DAILY #4 tab Transmission Status: Received by [employer] Guaifenesin [Mucinex] 1,200 mg PO BID #14 tab Transmission Status: Received by [address] Primary Care Physician: Diogenes Suarez DO [Primary Care Provider] - Please follow up with your Primary Care Physician in: IN 1-2 WEEKS Medical Necessity - Tobacco Use Smoking Status: Former smoker Meaningful Use Info Meaningful Use Diagnoses (Choose all that apply): None applicable Inpatient E&M: 51443 Disch Hosp
[2020-04-23] MEDS: levoFLOXacin 500 MG Tablet PO (10:30)
[2020-04-23 12:46] VITALS: BP 125/62; PULSE 64; RESP 18; TEMP 37.1; O2SAT 98
[2020-04-23 15:12] LABS: Pathologist Review Reviewed
[2020-04-23 17:05] LABS: Procalcitonin 0.22 ng/mL (0.00-0.09)
--- NOTE | 2020-04-24 12:50 | CASEMGMT ---
ROMÁN CM Discharge Follow-up Phone Call: PREETHI: Griselda Strata: 3 Call Date: 04/24/2020 Discharge Date: 04/23/2020 Time of Call: 1245 Admitting Diagnosis: Pneumonia Discharge follow-up call placed to pt. Pt states he is doing well and trying to take it easy. States he did have a mild temperature last evening (100.0) for which he took Tylenol. Denies any fever today. States he feels a little more SOB today and is trying to use his IS more frequently but that this makes him gag. Pt states he did sleep well last night. States he obtained his three medications and is taking them as prescribed. Pt states he has had some palpitations and is interested in seeing a skiver blockers. States he called around an hour ago to [facility] and is awaiting a call back re: scheduling an appointment. States the palpitations are occurring more frequently which has been about every other day. Pt aware of his appointment with his PCP next Wednesday and plans to discuss this issue with him at that time also. Pt denied any further questions or concerns. Paula Bryant RN
== END 2020-04-23 12:55 | disposition home or self-care (01) | DRG 194 ==
LOC: ED 22:21 → ICU 04-22 00:18 → MS3 04-22 09:07
PROVIDERS: Admitting Provider Hospitalist; Emergency Provider Emergency Medicine; PCP Preventive Medicine Occupational Medicine; Referring Provider Hospitalist; Visit Provider Internal Medicine
DX: J18.9 Pneumonia, unspecified organism (principal); N17.9 Acute kidney failure, unspecified; D84.9 Immunodeficiency, unspecified; D61.818 Other pancytopenia; D70.9 Neutropenia, unspecified; R50.81 Fever presenting with conditions classified elsewhere; M10.9 Gout, unspecified; I50.9 Heart failure, unspecified; D47.3 Essential (hemorrhagic) thrombocythemia; I48.91 Unspecified atrial fibrillation; E78.5 Hyperlipidemia, unspecified; Z82.5 Family history of asthma and other chronic lower respiratory diseases; Z79.890 Hormone replacement therapy; Z87.891 Personal history of nicotine dependence; R16.1 Splenomegaly, not elsewhere classified; N40.0 Benign prostatic hyperplasia without lower urinary tract symptoms
CPT/HCPCS: 36415; 71045; 80048; 80053; 81001; 82570; 83605; 84145; 84300; 85025; 87040; 87070; 87205; 87449; 87633; 87635; 87641; 99284; J7030; A4216; J0696; U0003

== ENCOUNTER → 2020-05-27 12:58 | Outpatient (CLI) | payer MEDICARE, SELFPAY ==
[2020-05-15 10:40] VITALS: BMI 29.6
--- NOTE | 2020-05-27 12:59 | ECHODONC_ITS ---
Reason For Study: AFib/Flutter Procedure This was a 2D Doppler, Color Flow transthoracic echocardiogram. Myocardial strain analysis was performed in this exam to aid in the assessment of cardiac function. Exam performed in department. Left Ventricle Normal LV size. Mild concentric left ventricular hypertrophy. Left ventricular systolic function is normal. The estimated ejection fraction is 55 %. Stage 2 diastolic dysfunction. No regional wall motion abnormalities noted. Right Ventricle Normal right ventricle. Normal systolic function. Atria The left atrium is moderately enlarged. The right atrium is mildly enlarged. Mitral Valve Normal mitral valve. Trivial mitral valve insufficiency. Tricuspid Valve Normal tricuspid valve. Unable to estimate RV systolic pressure due to inadequate jet, pulmonary artery pressure probably normal. Aortic Valve Trisinus/trileaflet aortic valve. Mild focal aortic valve calcification. Mild (1+) aortic valve insufficiency. Pulmonic Valve Normal pulmonic valve. Great Vessels Mild to moderately dilated aortic root. The pulmonary artery is normal size. Inferior vena cava collapse with respiration. Pericardium/Pleural No pericardial effusion. MMode/2D Measurements & Calculations LVIDd: 5.8 cm IVSd: 1.4 cm Ao root diam: 4.1 cm LVIDs: 4.1 cm LVPWd: 1.2 cm LA dimension: 4.8 cm RVDd: 5.3 cm FS: 29.2 % LAV(MOD-bp): 107.1 ml LA A4 area: 31.5 cm2 RA A4 area: 26.2 cm2 LAV(MOD-bp) Indexed: 52.9 ml/m2 LAV(MOD-sp2): 93.9 ml LAV(MOD-sp4): 117.2 ml Time Measurements MV dec time: 0.22 sec Doppler Measurements & Calculations MV E max lars: 119.9 cm/sec Lat Peak E' Lars: 10.1 cm/sec Med Peak E' Lars: 6.6 cm/sec MV A max lars: 89.1 cm/sec E/E' lat: 11.8 E/E' med: 18.0 MV E/A: 1.3 MV V2 max: 123.6 cm/sec MV P1/2t max lars: 122.9 cm/sec Ao V2 max: 209.7 cm/sec MV max P.1 mmHg MV P1/2t: 103.3 msec Ao max P.6 mmHg MV V2 mean: 69.1 cm/sec MV dec slope: 348.5 cm/sec2 MV mean P.3 mmHg MVA(P1/2t): 2.1 cm2 MV V2 VTI: 43.2 cm AI max lars: 389.6 cm/sec LV V1 max: 114.9 cm/sec PA V2 max: 108.8 cm/sec AI max P.1 mmHg LV V1 max P.3 mmHg AI dec slope: 205.8 cm/sec2 AI P1/2t: 554.6 msec Interpretation Summary Normal LV size. Mild concentric left ventricular hypertrophy. Left ventricular systolic function is normal. The estimated ejection fraction is 55 %. Stage 2 diastolic dysfunction. The global longitudinal strain is normal. The global longitudinal strain = -19 % (normal). Ordering Physician: Rubén Guo Referring Physician: Rubén Guo Performed By: Michael Huang RCS
== END ==
PROVIDERS: PCP Preventive Medicine Occupational Medicine; Referring Provider Internal Medicine Cardiovascular Disease; Visit Provider Internal Medicine Cardiovascular Disease
DX: I34.0 Nonrheumatic mitral (valve) insufficiency (principal); I48.92 Unspecified atrial flutter; I48.0 Paroxysmal atrial fibrillation
CPT/HCPCS: 93225; 93226; 93306; 93356

== ENCOUNTER → 2020-07-05 07:51 | Outpatient (CLI) | payer MEDICARE, SELFPAY ==
[2020-06-27 14:05] VITALS: BMI 28.9
--- NOTE | 2020-07-05 07:53 | CT_ITS ---
STUDY: CT ABDOMEN AND PELVIS WITH CONTRAST REASON FOR EXAM: Male, 69 years old. Abdomen pain, hernia evaluation. Hx splenomegaly, myelofibrosis. RADIATION DOSAGE (If Supplied By Facility): CTDIvol = ( 16.79 ) mGy, DLP = ( 1189.64 ) mGycm TECHNIQUE: Transaxial images were obtained from the dome of the diaphragm to the symphysis pubis with oral contrast. Oral and amp; IV Readi-CAT and amp; 100mL Isovue-300 was administered. Sagittal and coronal images were reconstructed. Individualized dose optimization techniques were used for this CT. COMPARISON: Comparison is made with prior study dated 10/17/2015. FINDINGS: The visualized lung bases are unremarkable. Coronary artery calcification. Normal liver. Normal gallbladder and extrahepatic biliary system. There is severe splenomegaly. The spleen is of heterogeneous appearance with several hypodense nodules scattered throughout. The largest measures 3.1 cm x 3.3 cm. Normal pancreas. Normal bilateral adrenal glands. Normal right kidney. Normal left kidney. Normal visualized stomach. Normal small intestine. There are multiple colonic diverticula consistent with diverticulosis. The appendix is visualized and appears normal. There is scattered atherosclerotic calcification of the abdominal aorta, without a demonstrated aneurysm. Normal inferior vena cava. There is borderline retroperitoneal lymphadenopathy with enlarged nodes no greater than 10mm in the short axis diameter. Normal urinary bladder. There is enlargement of the prostate gland. It measures 5.6 cm x 5.7 cm. Metallic radiation seeds are seen within. There is a moderate-sized right inguinal hernia containing nondilated small bowel loops. This extends into the right hemiscrotum. There is evidence of a small hydrocele. Stable sclerotic changes of the visualized thoracic and lumbar vertebrae as well as the pelvis. This is in keeping with the patient''s history of myelofibrosis. Disc space narrowing and disc degeneration. CT/Abdomen/Pelvis WITH Contrast IMPRESSION: Moderate size right inguinal hernia containing nondilated small bowel loops. Its extent into the scrotum. Small hydrocele is seen. Marked degree of thyromegaly with heterogeneous appearance with multiple hypodense nodules. Stable sclerotic changes seen in the visualized thoracic and lumbar vertebrae as well as the pelvis. This is included with the patient''s history of myelofibrosis. Electronically Signed: Alcon Suarez, at 9:03 EST , Service support ,
== END ==
PROVIDERS: PCP Preventive Medicine Occupational Medicine; Referring Provider Surgery; Visit Provider Surgery
DX: R10.9 Unspecified abdominal pain (principal)
CPT/HCPCS: 74177; Q9967

== ENCOUNTER 2020-08-06 08:22 | Day surgery (SDC) | payer MEDICARE, SELFPAY ==
[2020-07-10 09:26] VITALS: BMI 29.2
--- NOTE | 2020-07-30 07:02 | HP_ITS ---
Intake Vital Signs 07/10/20 Height 5 ft 8 in 07/10/20 Weight: 192 lb 07/10/20 BP 142/74 H 07/10/20 Blood Pressure Location Lt brachial 07/10/20 Position Sitting 07/10/20 Respiration 16 Intake Visit Reasons: F/U CT RESULTS 07/05 Chief Complaint: f/u CT Manager Concrete Required: No Is patient in pain?: No Allergies pseudoephedrine [From Sudafed] Adverse Reaction (Severe, Verified 07/10/20 08:57) Itching Medications Allopurinol [Zyloprim] 300 mg PO DAILY 02/04/18 [History Confirmed 07/10/20] Finasteride [Proscar] 5 mg PO QHS 02/04/18 [History Confirmed 07/10/20] Gemfibrozil [Lopid] 600 mg PO DAILY 02/04/18 [History Confirmed 07/10/20] Alfuzosin HCl [Alfuzosin HCl ER] 10 mg PO DAILY 04/21/20 [History Confirmed 07/10/20] Fedratinib Dihydrochloride [Inrebic] 200 mg PO DAILY 04/21/20 [History Confirmed 07/10/20] darbepoetin aster in polysorbat 100 mcg/0.5 mL in polysorbate injection syringe 100 mcg SC Q14D 05/15/20 [History Confirmed 07/10/20] levothyroxine 112 mcg tablet 224 mcg PO DAILY tab 05/15/20 [History Confirmed 07/10/20] flecainide 100 mg tablet 100 mg PO Q12H #60 tab 06/04/20 [Rx Confirmed 07/10/20] metoprolol succinate 50 mg tablet,extended release 24 hr 50 mg PO DAILY #90 tab 07/11/20 [Rx] FOR[facility]LY [facility], [facility] Medical History Paroxysmal atrial fibrillation (Chronic) Chronic diastolic (congestive) heart failure (Chronic) Hyperlipidemia (Chronic) Thrombocytopenia (Chronic) Myelofibrosis (Chronic) Anemia (Chronic) Pancytopenia (Chronic) Essential thrombocytosis (Chronic) Hypothyroidism (Chronic) Leukopenia (Chronic) Myeloproliferative neoplasm (Chronic) Splenomegaly (Chronic) Thyroid disease (Chronic) Pneumonia (Resolved) Neutropenic fever (Inactive) Surgical History History of colonoscopy (Acute ~2012) S/P TURP (status post transurethral resection of prostate) (Acute) H/O cardiac catheterization (Resolved 12/02/17) H/O prostate biopsy (Resolved) History of bone marrow biopsy (Resolved) History of thyroidectomy (Resolved) Family History Mother Heart disease Dementia Diabetes Father COPD (chronic obstructive pulmonary disease) Heart disease Sister Cancer uterine Social History (Updated 07/30/20 @ 09:[address] Sigifredo George MD) Smoking Status: Former smoker HPI HPI Surgical H&P: Yes HPI: ALTON BROWN, is a 70 M who presents to the office today for Follow-up from a CT scan of the abdomen and pelvis completed at [facility]. This confirmed a right inguinal hernia with nondilated small bowel loops within it. He Shy presents today for further evaluation and schedule treatment. ROS General General: Yes fatigue; no weight change, appetite, colon cancer, breast cancer or weakness HEENT HEENT: No difficulty swallowing, eye injury, eye surgery, swollen glands or hoarseness Endo Endocrine: No thyroid disease, diabetes mellitus, thyroid cancer, Hair loss, heat intolerance or cold intolerance Musc Musculoskeletal: Yes back problems, arthritis and gout; no rheumatoid arthritis or joint pain Cardio Cardiovascular: Yes murmur and atrial fibrillation; no pacemaker, heart disease, high blood pressure, heart attack, heart stent, palpitations, shortness of breat with exertion or chest pain Psych Psychiatric: No depression, anxiety or hearing voices Resp Respiratory: No shortness of breath, No sleep apnea, No cough, No COPD, No asthma, No emphysema, No wheezing Gastro Gastrointestinal: Yes abdominal pain, No nausea or vomiting, No diarrhea, No constipation, No blood in stool, Yes acid reflux, Yes hemorrhoids, No ulcers, No gallbladder problem, No black,tarry stools Rakesh Hematologic: No blood thinners, Yes blood disorders, No bleeding, Yes anemia, No blood clots Neuro Neurologic: No weakness Exam Const General: no acute distress, well developed, well hydrated Orientation: oriented to person, oriented to place, oriented to time [facility] Head: normocephalic, atraumatic Ears: external ears normal Mouth: moist mucous membranes Eyes Sclera: sclerae normal Pupils: normal by confrontation Neck Neck: no lymphadenopathy noted Neck mass: No Thyroid: thyroid normal, symmetrical Chest Chest palpation & inspection: normal inspection of the chest Resp Effort & Inspection: normal respiratory effort Auscultation: clear to auscultation bilaterally Percussion: percussion normal Cardio Rate: regular rate Rhythm: regular rhythm Heart Sounds: murmur GI Palpation: soft, no hepatosplenomegaly, no masses, tender Rectal Exam: other Other: A right inguinal hernia is identified it is reducible. Rectal exam deferred. Extrem General: normal to inspection, no clubbing, cyanosis or edema Assessment & Plan Problems 1. Right inguinal hernia K40.90 Plan My plan is to perform a Robotically assisted laparoscopic right inguinal hernia repair with mesh. The planned surgical procedure was discussed extensively with the patient. The risks, benefits, anticipated outcomes and possible complication were mentioned. The patient understands that all hernia repair surgery has a chance of recurrence and/or chronic post-operative pain. My staff has also explained the procedure in understandable terms and the patient was given the option to take printed material concerning the planned procedure. The patient had the opportunity to ask questions concerning the planned procedure. The patient freely consents to the planned procedure. Medications Discontinued: metoprolol succinate ER Discontinued Reason: Order Changed 25 mg PO DAILY 30 tabs 11RF sotalol Discontinued Reason: Order Changed 80 mg PO BID Coding Level of Care Code Off vis,est,level 3 Diagnoses Right inguinal hernia K40.90 COVID (Procedure Consent) Procedure Criteria Procedure Criteria: Yes Elective The surgeon/proceduralist and patient have discussed in detail the risk of exposure to and/or potential harm posed by the COVID-19 virus with having a surgery/procedure at this time versus the risk of? delaying the surgery/procedure. It is not possible to know either the risk of delaying the surgery or procedure or chance of getting an infection with perfect accuracy, but a joint decision was made between the patient and the surgeon/proceduralist ?to proceed at this time with the scheduled surgery/procedure as indicated on the consent form. I have re-examined the patient. There are no clinical changes since date of exam.
[2020-08-06] VITALS (8 sets, daily range): BP systolic 109–137; BP diastolic 46–70; PULSE 18–79; RESP 16–18; TEMP 36.5–36.8; O2SAT 92–96; BMI 29.0
[2020-08-06] MEDS: Lactated Ringers 1,000 ML 100 ML IV (09:17)
[2020-08-06 10:06] LABS: International Normalized Ratio 1.3; Partial Thromboplast Time 42.1 Seconds (24.1-36.2); Prothrombin Time (Protime)PT. 15.4 SECONDS (11.7-14.9)
[2020-08-06] MEDS: Cefazolin 2 GM in 0.9% Normal Saline 100 ML IV (10:14)
[2020-08-06] MEDS: Bupivacaine Mpf 0.5% 30 ML VIAL (10:56)
--- NOTE | 2020-08-06 11:03 | PCM.DC.HER ---
Discharge Diet: Light diet - advance as tolerated Discharge Activity: Return to Normal Activity, May Drive - when you are no longer taking narcotic pain medications., May Shower - with the bandage in place 1-2 days after surgery. Lifting Restrictions: 20 pounds for 8 weeks. Additional Activity Instructions:: Climbing stairs is fine, walking is encouraged. Sitting in bed may be uncomfortable. Sitting up using your lateral muscles (sitting up sideways) is usually more comfortable. Do not drive, work heavy equipment of sign legal documents for 24 hours. If your hernia repair was an ingunial repair, you may have scrotal swelling, an ice pack and/or athletic support can provide more comfort. Pain medications may cause nausea, you should typically eat light foods as you take your pain medications. Pain medications may also cause constipation. If you have difficulty with this, discuss with your doctor. Call your doctor if your incision/area has: Continuous Slow Oozing, Sudden Increased Bleeding, Increased Pain/ Swelling, Increased Redness, Foul Smelling Discharge Call your doctor if you observe: Fever of 101 or Higher Suture Line Care: Avoid Pulling/Pushing, Avoid Pinching/Bending Additional Dressing/Incision Instructions:: Leave the operative bandage on for 2-3 days. When you remove the bandage, leave the steri-strips on place until your follow up appointment or they fall off. Allergies/Adverse Reactions: Allergies pseudoephedrine [From Sudafed] Adverse Reaction (Severe, Verified 07/30/20 12:43) Itching FEVER Medications to take at Discharge Allopurinol [Zyloprim] 300 mg PO DAILY 02/04/18 Finasteride [Proscar] 5 mg PO QHS 02/04/18 Gemfibrozil [Lopid] 600 mg PO DAILY 02/04/18 Alfuzosin HCl [Alfuzosin HCl ER] 10 mg PO QHS 04/21/20 Fedratinib Dihydrochloride [Inrebic] 200 mg PO DAILY 04/21/20 darbepoetin aster in polysorbat 100 mcg/0.5 mL in polysorbate injection syringe 100 mcg SC Q14D 05/15/20 levothyroxine 112 mcg tablet 224 mcg PO DAILY tab 05/15/20 flecainide 100 mg tablet 100 mg PO Q12H #60 tab 06/04/20 metoprolol succinate 50 mg tablet,extended release 24 hr 50 mg PO DAILY #90 tab 07/11/20 Aspirin [Aspirin EC] 81 mg PO DAILY 07/30/20 Calcium Carbonate [Elemental Calcium] 600 mg PO DAILY 07/30/20 Magnesium Oxide [Magnesium] 500 mg PO DAILY 07/30/20 Multivitamin with Minerals [Multiple Vitamin] 1 ea PO DAILY 07/30/20 Vitamin E 400 unit PO DAILY 07/30/20 Oxycodone HCl/Acetaminophen [Percocet 5/325] 1 - 2 tablet PO Q4H PRN PRN 6 Days #30 tablet 08/06/20 The following prescriptions were given: Oxycodone HCl/Acetaminophen [Percocet 5/325] 1 - 2 tablet PO Q4H PRN PRN 6 Days #30 tablet PRN Reason: Pain Transmission Status: Received by NOHEMY ANN[address] Primary Care Physician: Diogenes Suarez DO [Primary Care Provider] - Test Results: Test results from this visit will be discussed in further detail at your follow-up appointment, if applicable. Please Follow Up With: Sigifredo George MD - [phone] When: Plan to have a follow up appointment in 7 days. Call to schedule.
--- NOTE | 2020-08-06 11:04 | PCM.OPRPT ---
Problem List (1) Right inguinal hernia Status: Acute Report of Operation Date of Procedure: 08/06/20 Pre-Operative Diagnosis: Right inguinal hernia Post-Operative Diagnosis: Same Surgery/Procedure Performed:: Open right inguinal hernia repair with mesh Type of Anesthesia:: General Anesthesiologist: Andrew Croft Estimated Blood Loss (mL): < 25 cc Description of Procedure: Patient brought in the operating room. Placed in the supine position. Under excellent general endotracheal ovation right inguinal area was sterilely prepped draped usual fashion. Local was injected. Right inguinal incision was made. Dissection was carried down through the subcutaneous tissues. Inferior superficial epigastric vessels were tied off with 2-0 Vicryl. I came down to the external oblique fascia. I incised this went through the external ring identifying the recurrent laryngeal nerve dissecting it free from the cord and vessel structures and protecting it medially. I dissected and got around the cord and vessel structures and the hernia. On the anterior medial aspect of the hernia the hernia sac was identified I dissected this free from the cord and vessel structures. I placed it and the preperitoneal fat back into the preperitoneal space. I placed a large mesh plug into the wound and tacked it circumferentially with 2-0 Prolene. I laid the onlay mesh tacked it to the pubic tubercle with 2 sutures of 2-0 Prolene I ran 1 of those sutures along the ileal inguinal ligament and the other along the shelving edge of the transversalis fascia. The mesh laid completely flat. The cord and vessel structures as well as the ileal inguinal nerve was then placed through the burks ring which I did lengthened medially slightly. I tied the sutures superiorly upon themselves in the mesh. I also tightened the mesh with another interrupted suture of 2-0 Prolene the hole accommodated my fifth finger so that there would be no pinching of the cord and vessel structures. Local was injected. Extra oblique fascia was brought together with a running 2-0 Vicryl. Subcu was brought together with a 3-0 Vicryl. Then a running 4-0 Monocryl. Steri-Strips were applied sterile dressings were applied and the patient tolerated the procedure well - Admit VTE Documentation VTE Present on Admission: No VTE Mechan Device Prophylaxis: SCD's VTE Pharm Prophylaxis ordered?: No Reason prophylaxis not ordered:: Treatment Not Indicated [id number]: [id number] Lap ing hernia repair init
[2020-08-06] MEDS: Acetaminophen 325 MG Tablet PO (12:43)
[2020-08-06] MEDS: oxyCODONE 5 MG Tablet PO (12:48)
--- NOTE | 2020-08-06 13:30 | SUR.PHASEII ---
pt up to the bathroom, states that he urinated but not a lot. Assisted back to bed and bladder scanned for 187. Informed patient that he would need to stay and void again. Patient and family agreeable. Gave several glasses of water. Call light within reach, in room.
== END 2020-08-06 15:03 | disposition home or self-care (01) ==
LOC: SDC 08:22 → AC 08:23
PROVIDERS: PCP Preventive Medicine Occupational Medicine; Referring Provider Surgery; Visit Provider Surgery
PROC: (CPT 49505; principal; 2020-08-06 09:30)
DX: K40.90 Unilateral inguinal hernia, without obstruction or gangrene, not specified as recurrent (principal); Z79.899 Other long term (current) drug therapy; Z87.891 Personal history of nicotine dependence; I48.0 Paroxysmal atrial fibrillation; E78.5 Hyperlipidemia, unspecified; D69.6 Thrombocytopenia, unspecified; E03.9 Hypothyroidism, unspecified
CPT/HCPCS: 49505; 85610; 85730; 87426; C9803; J7120; C1781; J2405

== ENCOUNTER 2021-08-13 18:06 | Inpatient (IN) | payer MEDICARE, SELFPAY ==
[2021-08-13] VITALS (10 sets, daily range): BP systolic 92–103; BP diastolic 56–74; PULSE 67–135; RESP 16–94; TEMP 36.6–36.8; O2SAT 20–100; BMI 27.8
--- NOTE | 2021-08-13 18:16 | EKG12_ITS ---
Test Reason : DYSRHYTHMIA Blood Pressure : / mmHG Vent. Rate : 136 BPM Atrial Rate : 100 BPM P-R Int : 000 ms QRS Dur : 096 ms QT Int : 342 ms P-R-T Axes : 000 -07 -45 degrees QTc Int : 514 ms Supraventricular tachycardia Nonspecific ST-T Changes Abnormal ECG Confirmed by SUJEY CHINCHILLA, JOVANI ([id number]), graphics editor SUJATHA FERNÁNDEZ ([id number]) on 08/15/2021 1:08:37 PM Referred By: DESHAWN Confirmed By:SAYRA RM MD
--- NOTE | 2021-08-13 18:20 | NURSING ---
NO OLD EKGS
--- NOTE | 2021-08-13 18:39 | ED.VIS.CHEST ---
HPI History of Present Illness Chief Complaint: Palpitations Informant: patient Onset/Context/Timing Onset: Days Activity at onset: gradual Timing: Continuous Current Severity: Mild Maximum Severity: Mild Worsened By: Nothing Relieved By: Nothing Associated Symptoms: Negative for Nausea, Vomiting, Diaphoresis, Dyspnea, Cough, Fever, Lightheadedness, Acid Reflux and Palpitations Narrative Narrative: 71-year-old male history of A. fib on flecainide metoprolol. Recent admission to [facility] for Covid. In 2020 had a cardiac ablation done in [facility] for A. fib. Currently is on Eliquis. States his heart rates have been accelerated for days. He has mild chest discomfort. Prior Similar Symptoms: Yes Recent Illness/Hospitalization: Yes PE Risk Factors: Positive for Recent Immobilization; Negative for Recent Travel/Surgery, Prior DVT or PE, Cancer and OCP + Smoking + >/=35 TAD Risk Factors: Negative for Marfan's Syndrome [facility] Medical History Anemia Chronic diastolic (congestive) heart failure Essential thrombocytosis Hyperlipidemia Hypothyroidism Leukopenia Myelofibrosis Myeloproliferative neoplasm Neutropenic fever Pancytopenia Paroxysmal atrial fibrillation Paroxysmal atrial tachycardia (04/11/21) Right inguinal hernia Splenomegaly Thrombocytopenia Thyroid disease Home Medications allopurinol 300 mg PO DAILY 02/04/18 [History Last Taken 03/23/18 11:00 300 mg] finasteride 5 mg PO QHS 02/04/18 [History Last Taken 03/22/18 22:00 5 mg] gemfibrozil 600 mg PO DAILY 02/04/18 [History Last Taken 03/23/18 08:00 600 mg] alfuzosin 10 mg PO QHS 04/21/20 [History Last Taken Unknown] fedratinib 200 mg PO DAILY 04/21/20 [History Last Taken 07/30/20] darbepoetin aster in polysorbat 100 mcg/0.5 mL in polysorbate injection syringe 100 mcg SC Q14D 05/15/20 [History Last Taken Unknown] calcium carbonate 600 mg PO DAILY 07/30/20 [History Last Taken Unknown] magnesium oxide 500 mg PO DAILY 07/30/20 [History Last Taken Unknown] multivitamin with minerals 1 ea PO DAILY 07/30/20 [History Last Taken Unknown] vitamin E 400 unit PO DAILY 07/30/20 [History Last Taken Unknown] levothyroxine 112 mcg tablet 300 mcg PO DAILY tab 08/13/20 [History Last Taken Unknown] apixaban 5 mg PO BID 08/13/21 [History Last Taken Unknown] fluticasone propionate [Flonase] 1 spray INTRANASAL BID 08/13/21 [History Last Taken Unknown] metoprolol succinate 75 mg PO BID 08/13/21 [History Last Taken Unknown] Allergy/AdvReac Type Severity Reaction Status Date / Time pseudoephedrine AdvReac Severe Itching [facility]21 18[facility]09 [facility] Family History Mother Heart disease Dementia Diabetes Father COPD (chronic obstructive pulmonary disease) Heart disease Sister Cancer uterine Surgical History H/O cardiac catheterization (12/02/17) H/O prostate biopsy H/O right inguinal hernia repair History of bone marrow biopsy History of colonoscopy (2012) History of radiofrequency ablation procedure for cardiac arrhythmia (01/06/21) History of thyroidectomy History of transurethral resection of prostate (07/2020) Social History Smoking Status: Former smoker ROS ROS ED ROS Narrative Accelerated heart rate. Review of Systems ROS Unobtainable: Denies due to encephalopathy Constitutional Constitutional ED: Denies fever(s) Eyes Eyes: Denies none ENT ENT ED: Denies ear pain Cardiovascular Cardiovascular: Reports chest pain, palpitations and racing heartbeat; Denies as per HPI Respiratory/Chest Respiratory/Chest: Denies cough, dyspnea or sputum Gastrointestinal Gastrointestinal: Denies abdominal pain, diarrhea, nausea or vomiting Genitourinary Genitourinary ED: Denies dysuria Musculoskeletal Musculoskeletal: Denies myalgias Integumentary Denies rash Neurologic Neurologic: Denies headache(s) Psychiatric Psychiatric: Denies depression Endocrine Endocrinology: Denies polyuria Hematologic/Lymphatic Hematologic/Lymphatic: Denies easy bruising Allergic/Immunologic Allergic/Immunologic ED: Denies urticaria EXAM Physical Exam Narrative Exam Narrative: 41-year-old male no acute distress at its marked stable. Pulse ox 90% on room air no hypoxia. Heart rate 135. H EENT exam unremarkable. Neck nontender. Lungs clear to auscultation bilaterally. Heart tachycardic rate 135 no murmur. Abdomen soft nontender. Moving all 4 extremities. Calves nontender without edema. Neurologically awake and alert. No focal motor deficits. Const Vital Signs: 08/13/21 18:07 08/13/21 18:16 08/13/21 19:56 Temperature 98.1 F Temperature Source Temporal Pulse Rate 135 H 77 Respiratory Rate 16 94 H Blood Pressure 103/74 Blood Pressure Mean 83 Pulse Ox 100 20 Oxygen Delivery Method Room Air Nasal Cannula Room Air Oxygen Flow Rate (L/min) 2 Positive well nourished and well developed; Negative for obese, cachectic, contractures or unkempt General Appearance ED: well developed and NAD; Negative for unkempt, cachectic, contractures or pallor Nutritional Appearance: Negative for cachectic or obese HEENT Reports moist mucous membranes normocephalic and atraumatic Eyes PERRL and EOMs intact bilaterally Neck no lymphadenopathy, supple and no JVD General: Negative for tenderness Chest Wall inspection of chest normal and palpation of chest normal Chest: Negative for tenderness Resp normal respiratory effort and clear to auscultation bilaterally Effort and Inspection: respiratory distress Auscultation: Negative for rales, rhonchi or wheezes Cardio S1 normal heart sound, S2 normal heart sound and no murmurs; Negative for regular rate or regular rhythm Rate: tachycardic GI normal to inspection, nondistended, normoactive bowel sounds, soft to palpation, non-tender, non-distended and no masses; Negative for hepatosplenomegaly Auscultation: Negative for hyperactive bowel sounds Back/Spine no CVA tenderness Extremity normal to inspection General Extremety ED: Negative for edema or tenderness General Extremity: Negative for edema Neuro oriented x3 Sensorium / Orientation: awake, alert, oriented to person, oriented to place and oriented to time Motor Exam: strength 5/5 throughout Psych mental status grossly normal Appearance: Negative for unkempt Attitude: No agitated Mood & Affect: Negative for depressed or tearful Skin no rashes or lesions noted and no wounds General Skin Exam: Negative for jaundice or pallor MDM MDM MDM Narrative Medical decision making narrative: 71-year-old male history of A. fib with A. fib flutter RVR. Treated with IV Cardizem. Cardiac work-up pending. Repeat exam patient doing well at 8:20 PM. Heart rate still well controlled after 1 dose of Cardizem. Currently his heart rate 70-80. He remains in a flutter. I have already spoken to the hospitalist the patient will be brought in for further evaluation, continue monitoring of his heart rate and decision if they need to adjust his medications. Lab Data Attestation: I reviewed the patient's lab results. Lab results narrative: CBC shows a white count of 3.6. Hemoglobin 8.5 hematocrit of 29. Platelet count of 145. Significant pancytopenia. Electrolytes show a gap of 9. New onset BUN of 44 creatinine 1.67. Glucose 117. Troponin is 17. Labs: Laboratory Results - last 24 hr 08/13/21 08/13/21 18:45 18:45 WBC 3.6 L RBC 3.30 L Hgb 8.5 L Hct 29.2 L MCV 88.5 MCH 25.8 L MCHC 29.1 L RDW Std Deviation 62.2 H RDW Coeff of Rafael 19.8 H Plt Count 145 L Immature Gran % (Auto) 0.800 Neut % (Auto) 69.3 Lymph % (Auto) 23.3 Ransom % (Auto) 5.8 Eos % (Auto) 0.0 Baso % (Auto) 0.8 Absolute Neuts (auto) 2.5 Absolute Lymphs (auto) 0.84 Nucleated RBC % 0 Sodium 139 Potassium 4.4 Chloride 105 Carbon Dioxide 25.0 Anion Gap 9 BUN 44 H Creatinine 1.67 H Estim Creat Clear Calc 40.39 Est GFR (MDRD) Af Amer 53 L Est GFR (MDRD) Non-Af 44 L BUN/Creatinine Ratio 26.3 H Glucose 117 H Calcium 6.8 L Troponin I High Sens 17 Radiography Chest X-Ray - ED: 1 View, Read by ED Physician, Right Infiltrate and Left Infiltrate Diagnostic Testing: Chest x-ray, portable, single view interpreted by myself shows bilateral patchy infiltrates consistent with his regent Covid pneumonitis. Rhythm Strip Rhythm Strip: A-fib Rate: 136 EKG Initial EKG: Attestation: I personally reviewed and interpreted this EKG as follows: Interpretation: No Acute Injury Pattern, Atrial Fibrillation and Atrial Flutter Comments: 10-year-old flutter or fib rate of 136 her rapid ventricular rate. ST depression and T wave inversion in leads V2 through V6. Consistent with rate dependent ischemia. Prior EKG tracings: not available for review Discharge Plan Triage Chief Complaint: Palpitations ED Provider: Allen Kaufman Dx/Rx/DC Orders Clinical Impression: Paroxysmal atrial fibrillation, History of COVID-19 Prescriptions: No Action levothyroxine 112 mcg tablet 300 mcg PO DAILY RF: 0 gemfibrozil 600 MG tablet 600 mg PO DAILY RF: 0 allopurinol 300 MG tablet 300 mg PO DAILY RF: 0 finasteride 5 MG tablet 5 mg PO QHS RF: 0 alfuzosin 10 MG tablet extended release 24 hr 10 mg PO QHS RF: 0 fedratinib 100 MG capsule 200 mg PO DAILY RF: 0 darbepoetin aster in polysorbat 100 mcg/0.5 mL syringe 100 mcg SC Q14D RF: 0 calcium carbonate 600 MG tablet 600 mg PO DAILY RF: 0 multivitamin with minerals 1 EACH tablet 1 ea PO DAILY RF: 0 vitamin E 400 UNIT capsule 400 unit PO DAILY RF: 0 magnesium oxide 500 MG capsule 500 mg PO DAILY RF: 0 fluticasone propionate [Flonase] 50 mcg/actuation [place],Suspension 1 spray INTRANASAL BID RF: 0 apixaban 5 mg Tablet 5 mg PO BID RF: 0 metoprolol succinate 50 mg tablet extended release 24 hr 75 mg PO BID RF: 0 Primary Care Provider: Diogenes Suarez Referrals: Diogenes Suarez DO [Primary Care Provider] - Disposition Disposition: Acute Care [facility]
[2021-08-13 18:53] LABS: Absolute Lymphocyte Count 0.84 X10^3/uL (0.83-4.51); Absolute Neutrophil Count 2.5 X10^3/uL (2.0-7.7); Basophil# 0.03 X10^3/uL; Basophil% 0.8 % (0-1); Hematocrit 29.2 % (40-54); Hemoglobin 8.5 g/dL (13.0-16.5); Lymphocyte # 0.84 X10^3/ul (0.83-4.51); Lymphocyte % 23.3 % (19-41); Mean Corp Hgb Conc 29.1 g/dL (32-36); Mean Corpuscular Hgb 25.8 pg (27.0-32.0); Mean Corpuscular Volume 88.5 fL (80-94); Monocyte# 0.21 X10^3/uL; Monocyte% 5.8 % (0-10); NRBC Flagged by Analyzer 0 % (0-5); Neutrophil # 2.49 X10^3/uL (2.7-7.7); Neutrophil % 69.3 % (47-70); Platelet Count 145 K/mm3 (150-450); RBC Distribution Width CV 19.8 % (11.6-14.6); RBC Distribution Width SD 62.2 fl (35.1-43.9); White Blood Count 3.6 K/mm3 (4.4-11.0)
[2021-08-13] MEDS: dilTIAZem 25 MG/5 ML Vial IV BOLUS (18:54)
--- NOTE | 2021-08-13 19:00 | RAD_ITS ---
INDICATION: chest pain EXAMINATION/TECHNIQUE: X-RAY - XR Chest 1 View COMPARISON: 04/21/2020 FINDINGS: LIFE-SUPPORT AND LINES: 1. None HEART AND VESSELS: Cardiac silhouette is large, no evidence congestive failure LUNGS AND PLEURAL SPACES: Diffuse interstitial and patchy areas of alveolar infiltrate in the periphery of the mid and lower lungs bilaterally greater on the RIGHT than LEFT. No lobar consolidation. No pulmonary mass is noted. MEDIASTINUM AND HILAR REGIONS: No masses adenopathy noted. No areas of calcification. Visualized upper airway is normal in position. BONY ELEMENTS: No acute bony changes noted. RAD/Chest 1 View (Portable) IMPRESSION: 1. Stable cardiomegaly without evidence of congestive failure. 2. Moderate to marked multi lobar interstitial and patchy alveolar infiltrate/pneumonia. Multilobar atypical pneumonia is a consideration. No consolidation or effusion. Electronically Signed: Venkata Oglesby MD at 20:33 EST ,
[2021-08-13 19:46] LABS: Anion Gap 9 (5-15); BUN 44 mg/dL (7-18); BUN/Creat Ratio 26.3 RATIO (10-20); Calcium,Total 6.8 mg/dL (8.5-10.1); Chloride 105 mmol/L (98-107); Creatinine, Serum 1.67 mg/dL (0.70-1.30); EST Glomerular Filtration Rate 44 mL/min (>60); Est Glom Filt Rate - Afr Amer 53 mL/min (>60); Estimated Creatinine Clearance 40.39 ml/min; Glucose 117 mg/dL (74-106); Potassium 4.4 mmol/L (3.5-5.1); Sodium Level 139 mmol/L (136-145); Troponin-I HS 17 pg/mL (3.0-78.0)
[2021-08-13] MEDS: dilTIAZem 25 MG/5 ML Vial 20 MG IV BOLUS (21:29)
[2021-08-13 21:55] LABS: D-Dimer Quantitative (DVT/PE) 1.24 FEU/ug/m (0.27-0.49)
[2021-08-13 22:14] LABS: BNP,B-Type NATRIURETIC PEPTIDE 1134.2 pg/mL (0-100)
[2021-08-13 22:20] LABS: Ferritin 246 ng/mL (26-388); LDH 211 U/L (87-241); Magnesium 1.7 mg/dL (1.6-2.6)
[2021-08-13 22:57] LABS: Troponin-I HS 12 pg/mL (3.0-78.0)
[2021-08-13] MEDS: 0.9% Normal Saline 1,000 ML 100 ML IV (23:13)
[2021-08-13] MEDS: Fluticasone 0.05% 1 SPRAY NASAL.SRY NASAL (23:30)
[2021-08-13] MEDS: Finasteride 5 MG Tablet PO (23:31)
[2021-08-13] MEDS: APIXABAN 5 MG TABLET PO (23:31)
--- NOTE | 2021-08-13 23:53 | HP.PCM.HOS_ITS ---
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 Patient had original onset of his Covid type symptoms 07/18/2021 with fever, congestion, altered sense of taste and smell, cough, dyspnea, initially nausea with diarrhea and during his hospitalization at [facility] was treated with steroids as well as remdesivir. He was discharged nearly 1.5 weeks prior on 4 L nasal cannula and this has been trending down. He is not sure why they took him off his flecainide but they did increase his metoprolol he notes. Work-up in the ED included T 98.1, heart rate initially 67 however increased to 135, BP initially 135/66, respiratory rate 16, 100% on room air, CBC with WC 3.6, hemoglobin 8.5, platelet 145 without marked shift, BMP with BUN/creatinine 44/1.67, glucose 117, calcium 6.8, high-sensitivity cardiac troponin 17, chest x-ray evidence of bilateral Covid pneumonia, EKG with atrial fibrillation with RVR. In the ED patient ministered IV Cardizem bolus x2 while in the ED and following each rate improved into the 60s to 70s. 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 Following transition from the ED to the floor patient had recurrent atrial fibrillation with RVR therefore Cardizem drip initiated. [facility] Medical History Anemia Chronic diastolic (congestive) heart failure Essential thrombocytosis Hyperlipidemia Hypothyroidism Leukopenia Myelofibrosis Myeloproliferative neoplasm Neutropenic fever Pancytopenia Paroxysmal atrial fibrillation Paroxysmal atrial tachycardia (04/11/21) Right inguinal hernia Splenomegaly Thrombocytopenia Thyroid disease Home Medications allopurinol 300 mg PO DAILY 02/04/18 [History Last Taken 03/23/18 11:00 300 mg] finasteride 5 mg PO QHS 02/04/18 [History Last Taken 03/22/18 22:00 5 mg] gemfibrozil 600 mg PO DAILY 02/04/18 [History Last Taken 03/23/18 08:00 600 mg] alfuzosin 10 mg PO QHS 04/21/20 [History Last Taken Unknown] fedratinib 200 mg PO DAILY 04/21/20 [History Last Taken 07/30/20] darbepoetin aster in polysorbat 100 mcg/0.5 mL in polysorbate injection syringe 100 mcg SC Q14D 05/15/20 [History Last Taken Unknown] calcium carbonate 600 mg PO DAILY 07/30/20 [History Last Taken Unknown] magnesium oxide 500 mg PO DAILY 07/30/20 [History Last Taken Unknown] multivitamin with minerals 1 ea PO DAILY 07/30/20 [History Last Taken Unknown] vitamin E 400 unit PO DAILY 07/30/20 [History Last Taken Unknown] levothyroxine 112 mcg tablet 300 mcg PO DAILY tab 08/13/20 [History Last Taken Unknown] apixaban 5 mg PO BID 08/13/21 [History Last Taken Unknown] fluticasone propionate [Flonase] 1 spray INTRANASAL BID 08/13/21 [History Last Taken Unknown] metoprolol succinate 75 mg PO BID 08/13/21 [History Last Taken Unknown] Allergy/AdvReac Type Severity Reaction Status Date / Time pseudoephedrine AdvReac Severe Itching Verified 08/13/21 18:09 [facility] Family History Mother Heart disease Dementia Diabetes Father COPD (chronic obstructive pulmonary disease) Heart disease Sister Cancer uterine Surgical History H/O cardiac catheterization (12/02/17) H/O prostate biopsy H/O right inguinal hernia repair History of bone marrow biopsy History of colonoscopy (2012) History of radiofrequency ablation procedure for cardiac arrhythmia (06/21/21) History of thyroidectomy History of transurethral resection of prostate (07/2020) Social History (Updated 08/13/21 @ 23:[address] Amber Platt MD) household members: spouse Smoking Status: Former smoker alcohol intake: never substance use type: does not use ROS ROS Narrative Admission Review of Systems: CONSTITUTIONAL: No weight loss, + fever, chills, weakness or fatigue but improved since initial COVID sxs onset. HEENT: + Altered taste/smell. Eyes: No visual loss, blurred vision, double vision or yellow sclerae. Ears, Nose, Throat: No hearing loss, sneezing. SKIN: No rash or itching, lesions, wounds. CARDIOVASCULAR: + Palpitations. No chest pain, chest pressure or chest discomfort, edema, orthopnea, syncopal events. RESPIRATORY: + Shortness of breath, cough, No marked sputum, wheezing, hemoptysis. GASTROINTESTINAL: + Anorexia, nausea, diarrhea but improved since initial COVID onset, No abdominal pain, melena, BRBPR. GENITOURINARY: No dysuria, frequency, urgency or retention. NEUROLOGICAL: No dizziness, syncope, paralysis, ataxia, numbness or tingling in the extremities, focal weakness, change in bowel or bladder control, seizure. MUSCULOSKELETAL: + Muscle, back pain, joint pain or stiffness. HEMATOLOGIC: + anemia, bleeding or bruising. LYMPHATICS: + SM. No enlarged nodes. PSYCHIATRIC: No history of depression or anxiety. ENDOCRINOLOGIC: No reports of sweating, cold or heat intolerance. No polyuria or polydipsia. ALLERGIES: No history of asthma, hives, eczema or rhinitis. Vital Signs Vital Signs Vital Signs: 08/13/21 18:07 08/13/21 18:16 08/13/21 19:56 Temperature 98.1 F Temperature Source Temporal Pulse Rate 135 H 77 Respiratory Rate 16 94 H Blood Pressure 103/74 Blood Pressure Mean 83 Pulse Ox 100 20 Oxygen Delivery Method Room Air Nasal Cannula Room Air Oxygen Flow Rate (L/min) 2 08/13/21 20:40 Temperature 97.9 F Temperature Source Temporal Pulse Rate 90 Respiratory Rate 18 Blood Pressure 100/68 Blood Pressure Mean 78 Pulse Ox 95 Oxygen Delivery Method Room Air Oxygen Flow Rate (L/min) Weight Weight: 183 lb Body Mass Index (BMI) 27.8 Physical Exam Narrative Physical Examination: General: Awake, alert, oriented x 3 and cooperative, seated upright in the ED bed, fatigued, rate improved after recent bolus but HR increasing again. Skin: Normal color, normal turgor, no icterus, no cyanosis. HEENT: AT/NC, EOMI, PERRLA, moderately dry MM, no carotid bruits or JVD noted. Lungs: Diffusely diminished, greater bases, increased respiratory rate, no rales, ronchi or wheezing. Heart: Currently rate increasing, irregular irregular; no gallop, rub audible. Abdomen: Soft, NTTP, NS, distant hyperactive bowel sounds, notable SM. Extremities: No cyanosis, clubbing, or edema. Neurological: Patient awake, alert, oriented as noted, cognitive function intact; pupils equally reactive to light and accommodation, cranial nerves II- XII grossly normal, moving all 4 extremities, no focal deficits, strength moderately to severely globally decreased secondary to acute presentation and recent COVID admission/illness. Psychiatric: Affect appears fatigued, no acute evidence of depressive or anxiety feelings. Results Lab / Micro Data Result Diagrams: 08/13/21 18:45 08/13/21 18:45 Labs: Laboratory Results - last 24 hr 08/13/21 18:45: WBC 3.6 L, RBC 3.30 L, Hgb 8.5 L, Hct 29.2 L, MCV 88.5, MCH 25.8 L, MCHC 29.1 L, RDW Std Deviation 62.2 H, RDW Coeff of Rafael 19.8 H, Plt Count 145 L, Immature Gran % (Auto) 0.800, Neut % (Auto) 69.3, Lymph % (Auto) 23.3, [place] % (Auto) 5.8, Eos % (Auto) 0.0, Baso % (Auto) 0.8, Absolute Neuts (auto) 2.5, Absolute Lymphs (auto) 0.84, Nucleated RBC % 0 08/13/21 18:45: Sodium 139, Potassium 4.4, Chloride 105, Carbon Dioxide 25.0, Anion Gap 9, BUN 44 H, Creatinine 1.67 H, Estim Creat Clear Calc 40.39, Est GFR (MDRD) Af Amer 53 L, Est GFR (MDRD) Non-Af 44 L, BUN/Creatinine Ratio 26.3 H, Glucose 117 H, Calcium 6.8 L, Troponin I High Sens 17 Rhythm Strip Rhythm Strip: A-fib Rate: 136 Radiology Impression Chest X-Ray 08/13/21 19:00 IMPRESSION: 1. Stable cardiomegaly without evidence of congestive failure. 2. Moderate to marked multi lobar interstitial and patchy alveolar infiltrate/pneumonia. Multilobar atypical pneumonia is a consideration. No consolidation or effusion. 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 #1. Paroxsymal atrial fibrillation with RVR: Patient with history of prior cardiac ablation in [facility] [place] in 2020. EKG in ED w/ atrial fibrillation w/ RVR. Patient administered IV Cardizem in ED. patient's atrial fibrillation with RVR likely associated with recent Covid pneumonia. Will admit to PCU, maintain on telemetry, obtain cardiac enzyme serial set, obtain magnesium level, obtain TSH level. Will continue home eliquis regimen. Initially improved with cardizem bolus x 2 however, following ED transition patient with recurrent RVR. Given recurrent events and response with cardizem bolus patient started on cardizem drip. Deferred any resumption of flecainide per cardiology recommendation, will await their input. Records requested from [facility]. #2. Recent Bilateral Pneumonia secondary to Acute Viral Syndrome, COVID-19 w/ Hypoxia: Patiently recently evaluated and treated at [facility] for Covid, patient discharged recently on 4 L nasal cannula but this has been weaning down, will have as needed albuterol, to be cautious will obtain panel, defer any recurrent steroid or antiviral treatments given timeline. Patient's presentation is likely attributable to #1 especially given the recent discontinuation of his flecainide for unclear reason. #3. Acute renal insufficiency secondary to acute presentation #1: Admission BUN/creatinine 44/1.67, baseline creatinine 1.0-1.2, mildly elevated likely some component of dehydration, will continue judicious hydration, repeat CMP in AM. #4. Hypocalcemia: Admission calcium 6.8, possibly secondary to underlying chronic disease, will obtain ionized calcium and repeat CMP in the a.m. #5. 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 Will continue patient home fedratinib regimen, trend CBC, encourage continued outpatient follow-up with his oncologist. #6. Hypothyroidism: Status post history of prior goiter status post thyroidectomy, continue home synthroid regimen, TSH and FT4 pending given acute presentation. #7. CAD: Patient with nonobstructive CAD, most recent report noted in cardiology records with a 40% stenosis septal per of branch LAD, continue apixaban, beta-mavis therapy as able given cardizem drip as noted, not on CHRIS inhibitor/ARB, not on statin therapy. #8. Hypertension: We will continue patient home metoprolol regimen once able to overlap with drip as noted above. #9. Hyperlipidemia: We will continue patient home gemfibrozil regimen, not on statin therapy #10. BPH: Status post TURP and [employer]ro[employer], continue patient home finasteride regimen. #11. DVT prophylaxis: SCDs, continue patient home apixaban regimen. #12. CODE status: Patient does not have healthcare power of corporate associate attorney nor living will in place but is interested in setting these items up therefore recommended he again reviewed with case management/social work for assistance. Given Covid pneumonia with ongoing hypoxia although currently improved, discussed CODE status at length including difference between FULL code, DNR-CCA and DNR-CC status. Following discussions about the differences in these status, requested Full Code status. Advanced Care Planning Face to Face Time: 16 minutes. Charges/Coding Visit Charges Inpatient E&M: 26198 Init Hosp L3 Procedures Hospitalists Procedures: 51036 Advncd Care Plan 30 Min
[2021-08-14] VITALS (34 sets, daily range): BP systolic 87–116; BP diastolic 58–88; PULSE 114–136; RESP 16–28; TEMP 36.3–36.9; O2SAT 95–100
--- NOTE | 2021-08-14 | NURSING ---
This RN taking over care of pt at this time. Rec'd handoff from ROMÁN Garay RN
--- NOTE | 2021-08-14 01:29 | PCS.PANDOC ---
PANDEMIC DOCUMENTATION INITIATED: Date: 03/03/2021 Time: 190
[2021-08-14 02:10] LABS: Absolute Lymphocyte Count 0.54 X10^3/uL (0.83-4.51); Absolute Neutrophil Count 1.7 X10^3/uL (2.0-7.7); Basophil# 0.02 X10^3/uL; Basophil% 0.8 % (0-1); Hematocrit 23.3 % (40-54); Lymphocyte # 0.54 X10^3/ul (0.83-4.51); Lymphocyte % 22.7 % (19-41); Mean Corpuscular Hgb 26.3 pg (27.0-32.0); Mean Corpuscular Volume 87.6 fL (80-94); Monocyte# 0.12 X10^3/uL; NRBC Flagged by Analyzer 0.8 % (0-5); Neutrophil # 1.67 X10^3/uL (2.7-7.7); Neutrophil % 70.2 % (47-70); POSITIVE DIFFERENTIAL YES; Platelet Count 120 K/mm3 (150-450); RBC Distribution Width CV 19.5 % (11.6-14.6); RBC Distribution Width SD 60.9 fl (35.1-43.9); Red Blood Count 2.66 M/mm3 (4.6-6.2); White Blood Count 2.4 K/mm3 (4.4-11.0)
[2021-08-14 02:32] LABS: Procalcitonin 0.31 ng/mL (0.00-0.09); Troponin-I HS 17 pg/mL (3.0-78.0)
[2021-08-14 02:34] LABS: Differential Indicated SCAN CRITERIA MET
[2021-08-14 02:35] LABS: Anisocytosis 2+
[2021-08-14 02:47] LABS: ALB/GLOB Ratio 0.9 RATIO (0.9-2.4); AST(SGOT) 8 U/L (15-37); Alanine Aminotransfer ALT/SGPT 9 U/L (16-61); Albumin, Serum 2.7 g/dL (3.2-5.0); Alkaline Phosphatase 49 U/L (45-117); Anion Gap 8 (5-15); BUN 48 mg/dL (7-18); BUN/Creat Ratio 28.6 RATIO (10-20); Calcium,Total 6.5 mg/dL (8.5-10.1); Chloride 107 mmol/L (98-107); Creatinine, Serum 1.68 mg/dL (0.70-1.30); EST Glomerular Filtration Rate 43 mL/min (>60); Est Glom Filt Rate - Afr Amer 52 mL/min (>60); Estimated Creatinine Clearance 40.15 ml/min; Glucose 110 mg/dL (74-106); Potassium 4.5 mmol/L (3.5-5.1); Protein, Total 5.7 g/dL (6.4-8.2); Sodium Level 139 mmol/L (136-145); T4 Free Direct 1.26 ng/dL (0.76-1.46); Thyroid Stim Hormone (TSH) 0.52 uIU/mL (0.358-3.74)
[2021-08-14 04:50] LABS: Hematocrit 23.5 % (40-54); Hemoglobin 7.1 g/dL (13.0-16.5)
[2021-08-14] MEDS: Levothyroxine 150 MCG Tablet 300 MCG PO (06:20)
--- NOTE | 2021-08-14 08:27 | PCM.CONS.C ---
Assessment & Plan Assessment/Plan (1) Atrial fibrillation with RVR: PLAN: He does have a history of atrial fibrillation with rapid ventricular response rate. He recently underwent an ablation which appear has failed. It is not clear whether this is due to the COVID-19 infection or otherwise. His flecainide was also discontinued for reasons that are not entirely clear. I would recommend that we reinstitute his flecainide Discontinue amiodarone Increase metoprolol to 100 mg twice a day Continue anticoagulation and watch for any bleeding diatheses Would recommend follow-up with the [facility] to discuss whether the patient is a candidate for watchman device. This however would not necessarily solve the problem of atrial fibrillation. The above has been discussed with him. Thank you for allowing me to participate in the care of your patient. Please don't hesitate to call if any issues arise. HPI Consult Data Date of Consult: 08/14/21 HPI Narrative HPI Narrative: ALTON BROWN, is a 71 M who presents for follow-up cardiovascular visit. He has a history of myelofibrosis and has been treated by the oncology service at the [facility]. He also had a history of atrial fibrillation and eventually sought the electrophysiology service at [facility] and underwent an ablation in April 2021. He had been doing well until the end of last year when he contracted COVID-19. He went to [facility] [place] and had some changes in his medication. His flecainide was discontinued and he had some adjustments to his beta-mavis. He presents to the emergency room today complaining of shortness of breath as well as more palpitations. He does have chronic anemia as you know. He denies any chest pain or paroxysmal nocturnal dyspnea or pedal edema. He does have shortness of breath at rest. [facility] Medical History Anemia Chronic diastolic (congestive) heart failure Essential thrombocytosis Hyperlipidemia Hypothyroidism Leukopenia Myelofibrosis Myeloproliferative neoplasm Neutropenic fever Pancytopenia Paroxysmal atrial fibrillation Paroxysmal atrial tachycardia (04/11/21) Right inguinal hernia Splenomegaly Thrombocytopenia Thyroid disease Home Medications allopurinol 300 mg PO DAILY 02/04/18 [History Last Taken 03/23/18 11:00 300 mg] finasteride 5 mg PO QHS 02/04/18 [History Last Taken 03/22/18 22:00 5 mg] gemfibrozil 600 mg PO DAILY 02/04/18 [History Last Taken 03/23/18 08:00 600 mg] alfuzosin 10 mg PO QHS 04/21/20 [History Last Taken Unknown] fedratinib 200 mg PO DAILY 04/21/20 [History Last Taken 07/30/20] darbepoetin aster in polysorbat 100 mcg/0.5 mL in polysorbate injection syringe 100 mcg SC Q14D 05/15/20 [History Last Taken Unknown] calcium carbonate 600 mg PO DAILY 07/30/20 [History Last Taken Unknown] magnesium oxide 500 mg PO DAILY 07/30/20 [History Last Taken Unknown] multivitamin with minerals 1 ea PO DAILY 07/30/20 [History Last Taken Unknown] vitamin E 400 unit PO DAILY 07/30/20 [History Last Taken Unknown] levothyroxine 112 mcg tablet 300 mcg PO DAILY tab 08/13/20 [History Last Taken Unknown] apixaban 5 mg PO BID 08/13/21 [History Last Taken Unknown] fluticasone propionate [Flonase] 1 spray INTRANASAL BID 08/13/21 [History Last Taken Unknown] metoprolol succinate 75 mg PO BID 08/13/21 [History Last Taken Unknown] Allergy/AdvReac Type Severity Reaction Status Date / Time pseudoephedrine AdvReac Severe Itching Verified 08/13/21 18:09 [From [facility]] Family History Mother Heart disease Dementia Diabetes Father COPD (chronic obstructive pulmonary disease) Heart disease Sister Cancer uterine Surgical History H/O cardiac catheterization (12/02/17) H/O prostate biopsy H/O right inguinal hernia repair History of bone marrow biopsy History of colonoscopy (2012) History of radiofrequency ablation procedure for cardiac arrhythmia (01/06/21) History of thyroidectomy History of transurethral resection of prostate (07/2020) Social History household members: spouse Smoking Status: Former smoker alcohol intake: never substance use type: does not use ROS Constitutional Constitutional: Denies fever(s) or weight loss Eyes Eyes: Reports systems reviewed and no addt'l complaints, except as documented ENT HEENT: Reports systems reviewed and no addt'l complaints, except as documented Cardiovascular Cardiovascular: Denies chest pain at rest, chest pain with activity, dyspnea at rest, dyspnea on exertion, edema, palpitations or paroxysmal nocturnal dyspnea Respiratory/Chest Respiratory/Chest: Reports dyspnea, dyspnea on exertion, shortness of breath at rest and shortness of breath with exertion; Denies productive cough Gastrointestinal Gastrointestinal: Denies change in bowel habits, nausea, vomiting or weight changes Genitourinary Genitourinary: Denies difficulty urinating Musculoskeletal Musculoskeletal: Denies joint stiffness or muscle weakness Integumentary Integumentary: Denies lesions Neurologic Neurologic: Denies dizziness or syncope Psychiatric Psychiatric: Denies anxiety Endocrine Endocrinology: Denies excessive sweating or fatigue Hematologic/Lymphatic Hematologic/Lymphatic: Denies anemia Allergic/Immunologic Allergic/Immunologic: Denies seasonal rhinorrhea Physical Exam Const alert, oriented x3 and no apparent distress General Appearance: cooperative HEENT hearing grossly normal bilaterally Head and Scalp: atraumatic Eyes EOMs intact bilaterally Neck General: normal visual inspection Chest inspection of chest normal and palpation of chest normal Resp normal respiratory effort Auscultation: clear to auscultation bilaterally Cardio S1 normal heart sound and S2 normal heart sound Jugular Venous Distention: JVD Rhythm: abnormal rhythm irregularly irregular GI normal to inspection, nondistended, normoactive bowel sounds Extremity normal capillary refill and no pedal edema Peripheral Pulses: Yes pulses 2+ throughout and femoral pulses present Skin no rashes or lesions noted Neuro oriented x3 and CN's II-XII intact bilaterally Psych Appearance: grossly normal and appropriate Risk Stratification Risk Stratification Applicable: No Objective Data Vital Signs: Vital Signs Temp Pulse Resp BP Pulse Ox 97.5 F L 123 H 16 97/61 99 08/14/21 07:18 08/14/21 07:48 08/14/21 07:18 08/14/21 07:18 08/14/21 07:27 Oxygen Flow Rate (L/min) 2 Oxygen Delivery Method Nasal Cannula Weight: 183 lb 13.848 oz Body Mass Index (BMI) 27.8 Intake & Output: Intake and Output for Last 24 Hours 08/12/21 08/13/21 08/14/21 23:59 23:59 23:59 Intake Total 328.76 / 328.76 Output Total 400 / 400 Balance -71.24 / -71.24 Lab / Micro Data Result Diagrams: 08/14/21 04:42 08/14/21 01:40 Labs: Laboratory Results - last 24 hr 08/13/21 18:45: WBC 3.6 L, RBC 3.30 L, Hgb 8.5 L, Hct 29.2 L, MCV 88.5, MCH 25.8 L, MCHC 29.1 L, RDW Std Deviation 62.2 H, RDW Coeff of Rafael 19.8 H, Plt Count 145 L, Immature Gran % (Auto) 0.800, Neut % (Auto) 69.3, Lymph % (Auto) 23.3, [place] % (Auto) 5.8, Eos % (Auto) 0.0, Baso % (Auto) 0.8, Absolute Neuts (auto) 2.5, Absolute Lymphs (auto) 0.84, Nucleated RBC % 0 08/13/21 18:45: Sodium 139, Potassium 4.4, Chloride 105, Carbon Dioxide 25.0, Anion Gap 9, BUN 44 H, Creatinine 1.67 H, Estim Creat Clear Calc 40.39, Est GFR (MDRD) Af Amer 53 L, Est GFR (MDRD) Non-Af 44 L, BUN/Creatinine Ratio 26.3 H, Glucose 117 H, Calcium 6.8 L, Troponin I High Sens 17 08/13/21 18:45: D-Dimer Quant (PE/DVT) 1.24 H* 08/13/21 18:45: B-Natriuretic Peptide 1134.2 H 08/13/21 21:22: Troponin I High Sens 12 08/13/21 21:22: Magnesium 1.7, Ferritin 246, Lactate Dehydrogenase 211, C-React Prot Ext Range 9.90 H 08/14/21 01:40: Procalcitonin 0.31 H 08/14/21 01:40: WBC 2.4 L, RBC 2.66 L, Hgb 7.0 L, Hct 23.3 L, MCV 87.6, MCH 26.3 L, MCHC 30.0 L, RDW Std Deviation 60.9 H, RDW Coeff of Rafael 19.5 H, Plt Count 120 L, Immature Gran % (Auto) 1.300 H, Neut % (Auto) 70.2 H, Lymph % (Auto) 22.7, [place] % (Auto) 5.0, Eos % (Auto) 0.0, Baso % (Auto) 0.8, Absolute Neuts (auto) 1.7 L, Absolute Lymphs (auto) 0.54 L, Nucleated RBC % 0.8, Diff Path Review May foll, Anisocytosis 2+ 08/14/21 01:40: Sodium 139, Potassium 4.5, Chloride 107, Carbon Dioxide 24.0, Anion Gap 8, BUN 48 H, Creatinine 1.68 H, Estim Creat Clear Calc 40.15, Est GFR (MDRD) Af Amer 52 L, Est GFR (MDRD) Non-Af 43 L, BUN/Creatinine Ratio 28.6 H, Glucose 110 H, Calcium 6.5 L*, Total Bilirubin 0.40, AST 8 L, ALT 9 L, Alkaline Phosphatase 49, Total Protein 5.7 L, Albumin 2.7 L, Globulin 3.0, Albumin/Globulin Ratio 0.9, TSH 0.52, Free T4 1.26 08/14/21 01:40: Troponin I High Sens 17 08/14/21 04:42: Hgb 7.1 L, Hct 23.5 L Micro: Microbiology 08/13/21 22:40 Urine, Clean Catch Legionella Antigen - Final 08/13/21 22:40 Urine, Clean Catch Streptococcus pneumoniae Antigen (M - Final Rhythm Strip Rhythm Strip: A-fib Rate: 136 Cardiology Labs/Tests 08/13/21 18:45: WBC 3.6 L, RBC 3.30 L, Hgb 8.5 L, Hct 29.2 L, MCV 88.5, MCH 25.8 L, MCHC 29.1 L, Plt Count 145 L, Immature Gran % (Auto) 0.800, Neut % (Auto) 69.3, Lymph % (Auto) 23.3, [place] % (Auto) 5.8, Eos % (Auto) 0.0, Baso % (Auto) 0.8, Absolute Neuts (auto) 2.5, Nucleated RBC % 0 08/13/21 18:45: Sodium 139, Potassium 4.4, Chloride 105, Carbon Dioxide 25.0, Anion Gap 9, BUN 44 H, Creatinine 1.67 H, Est GFR (MDRD) Af Amer 53 L, Est GFR (MDRD) Non-Af 44 L, BUN/Creatinine Ratio 26.3 H, Glucose 117 H, Calcium 6.8 L 08/13/21 18:45: D-Dimer Quant (PE/DVT) 1.24 H* 08/13/21 18:45: B-Natriuretic Peptide 1134.2 H 08/13/21 21:22: Magnesium 1.7, Ferritin 246 08/14/21 01:40: WBC 2.4 L, RBC 2.66 L, Hgb 7.0 L, Hct 23.3 L, MCV 87.6, MCH 26.3 L, MCHC 30.0 L, Plt Count 120 L, Immature Gran % (Auto) 1.300 H, Neut % (Auto) 70.2 H, Lymph % (Auto) 22.7, [place] % (Auto) 5.0, Eos % (Auto) 0.0, Baso % (Auto) 0.8, Absolute Neuts (auto) 1.7 L, Nucleated RBC % 0.8 08/14/21 01:40: Sodium 139, Potassium 4.5, Chloride 107, Carbon Dioxide 24.0, Anion Gap 8, BUN 48 H, Creatinine 1.68 H, Est GFR (MDRD) Af Amer 52 L, Est GFR (MDRD) Non-Af 43 L, BUN/Creatinine Ratio 28.6 H, Glucose 110 H, Calcium 6.5 L*, Total Bilirubin 0.40 08/14/21 04:42: Hgb 7.1 L, Hct 23.5 L Rhythm: EKG: ECHO: Stress Test: Cardiac Cath: PCI: CT Surgery: Holter monitor: EPS: PPM: CXR: Chest CT Scan: Radiography Diagnostic Testing: Radiology Impression Chest X-Ray 08/13/21 19:00 IMPRESSION: 1. Stable cardiomegaly without evidence of congestive failure. 2. Moderate to marked multi lobar interstitial and patchy alveolar infiltrate/pneumonia. Multilobar atypical pneumonia is a consideration. No consolidation or effusion. Electronically Signed: Venkata Oglesby MD at 20:33 EST ,
[2021-08-14] MEDS: Sodium Ferric Gluconat 250 MG in 0.9% Normal Saline 250 ML 135 MG IV (08:46)
[2021-08-14] MEDS: 0.9% Normal Saline 1,000 ML 100 ML IV ×2 (08:46→18:14)
[2021-08-14] MEDS: Magnesium Chloride 64 MG Delay Rel.Tablet 128 MG PO (08:50)
[2021-08-14] MEDS: Allopurinol 300 MG Tablet PO (08:50)
[2021-08-14] MEDS: Multivitamins,Ther W-Minerals Tablet 1 TABLET PO (08:50)
[2021-08-14] MEDS: Calcium (Elemental) 500 MG Tablet PO (08:50)
[2021-08-14] MEDS: Iron Polysaccharide Complex 150 MG CAPSULE PO (08:50)
[2021-08-14] MEDS: Gemfibrozil 600 MG Tablet PO (08:51)
[2021-08-14] MEDS: APIXABAN 5 MG TABLET PO ×2 (08:51→19:58)
[2021-08-14 09:11] LABS: Absolute Lymphocyte Count 0.46 X10^3/uL (0.83-4.51); Absolute Neutrophil Count 1.7 X10^3/uL (2.0-7.7); Basophil# 0.02 X10^3/uL; Basophil% 0.9 % (0-1); Hematocrit 26.4 % (40-54); Hemoglobin 7.8 g/dL (13.0-16.5); Lymphocyte # 0.46 X10^3/ul (0.83-4.51); Lymphocyte % 19.8 % (19-41); Mean Corp Hgb Conc 29.5 g/dL (32-36); Mean Corpuscular Hgb 26.4 pg (27.0-32.0); Mean Corpuscular Volume 89.2 fL (80-94); Monocyte# 0.11 X10^3/uL; Monocyte% 4.7 % (0-10); NRBC Flagged by Analyzer 0 % (0-5); Neutrophil % 73.3 % (47-70); POSITIVE DIFFERENTIAL YES; Platelet Count 120 K/mm3 (150-450); RBC Distribution Width CV 19.9 % (11.6-14.6); RBC Distribution Width SD 63.3 fl (35.1-43.9); Red Blood Count 2.96 M/mm3 (4.6-6.2); White Blood Count 2.3 K/mm3 (4.4-11.0)
[2021-08-14 09:13] LABS: Differential Indicated SCAN CRITERIA MET
[2021-08-14 09:34] LABS: ALB/GLOB Ratio 0.9 RATIO (0.9-2.4); AST(SGOT) 7 U/L (15-37); Alanine Aminotransfer ALT/SGPT 10 U/L (16-61); Albumin, Serum 2.8 g/dL (3.2-5.0); Alkaline Phosphatase 49 U/L (45-117); Anion Gap 8 (5-15); BUN 46 mg/dL (7-18); BUN/Creat Ratio 28.9 RATIO (10-20); Calcium,Total 6.8 mg/dL (8.5-10.1); Chloride 107 mmol/L (98-107); Creatinine, Serum 1.59 mg/dL (0.70-1.30); EST Glomerular Filtration Rate 46 mL/min (>60); Est Glom Filt Rate - Afr Amer 56 mL/min (>60); Estimated Creatinine Clearance 42.42 ml/min; Globulin 3.1 g/dL (2.2-4.2); Glucose 134 mg/dL (74-106); Potassium 4.1 mmol/L (3.5-5.1); Protein, Total 5.9 g/dL (6.4-8.2); Sodium Level 137 mmol/L (136-145)
[2021-08-14 09:35] LABS: Anisocytosis 1+
[2021-08-14] MEDS: Metoprolol(XL)Succ 100 MG Tablet PO ×2 (09:39→19:57)
[2021-08-14] MEDS: Fluticasone 0.05% 1 SPRAY NASAL.SRY NASAL ×2 (10:06→19:57)
[2021-08-14] MEDS: Flecainide 100 MG Tablet PO ×2 (10:06→19:57)
--- NOTE | 2021-08-14 11:40 | CASEMGMT ---
ROMÁN LANDRY assessment: Face to Face with patient for initial transition planning/care coordination assessment. ROMÁN LANDRY introduced self and role at [facility], pt voices understanding and consents to assessment. Pt is sitting up on side of bed in no distress on room air. Pt is A/Ox4 and answers all questions appropriately. Care providers, pharmacy, and demographics verified. Presentation: pt c/o afib 'out of control for several days because those hospital dr's messed with my meds.' Admitting dx: PAF w/ RVR PCP: Daniela Specialists: Sari, cardio; Елена [facility] onc; Luan, cardiac surgeon; Sahil, uro Preferred [facility]acy[facility] Insurance: [email or web address] Prescription Benefit: MMOMCR Living Will/HPOA: Pt states does not have LW/HPOA but has completed several times but never known what to do with it then. Pt would like to complete at this time. Reina SW aware, voices understanding. LNOK: Penny Kenney, ; Zulma Pena, daughter Living Arrangements: Pt lives with in 2 story home and states no concerns at home. Pt states is independent with ADL's. Transportation: Pt drives self and states no transportation concerns. DME/HHC: Pt has a walk in shower and oxygen thru [facility] from recent COVID dx but states will be returning it soon. Pt states no need for any further DME. Pt states has had HHC in the past but has not been to SNF. Pt states no concerns with going home at time of discharge. Pt is retired. Pt states does not smoke cigarettes or drink ETOH. Pt states no further concerns/needs. CM to follow for any further discharge planning/needs. Advised pt to ask for CM if any further questions/concerns/needs arise, voices understanding. Pt Goal: Home Plan: [place] ROMÁN LANDRY
--- NOTE | 2021-08-14 12:01 | PN.HOSP_ITS ---
Documented by User: Zulma Villanueva NP, PRIMARY TEACHING ASSISTANT-C 08/14/21 12:22 Subjective Subjective Patient seen and examined. States he feels mildly short of breath which has been ongoing since his recent Covid diagnosis. Denies chest pain, palpitations. Reports mild lower extremity swelling. Objective Data Objective Data Vital Signs: Vital Signs Temp Pulse Resp BP Pulse Ox 97.6 F L 130 H 20 H 116/79 97 08/14/21 11:09 08/14/21 11:09 08/14/21 11:09 08/14/21 11:09 08/14/21 10:00 Oxygen Flow Rate (L/min) 2 Oxygen Delivery Method Room Air Weight: 183 lb 13.848 oz Body Mass Index (BMI) 27.8 Intake & Output: Intake and Output for Last 24 Hours 08/12/21 08/13/21 08/14/21 23:59 23:59 23:59 Intake Total 1603.86 / 1603.86 Output Total 400 / 400 Balance 1203.86 / 1203.86 Lab / Micro Data Result Diagrams: 08/14/21 08:57 08/14/21 08:57 Labs: Laboratory Results - last 24 hr 08/13/21 18:45: WBC 3.6 L, RBC 3.30 L, Hgb 8.5 L, Hct 29.2 L, MCV 88.5, MCH 25.8 L, MCHC 29.1 L, RDW Std Deviation 62.2 H, RDW Coeff of Rafael 19.8 H, Plt Count 145 L, Immature Gran % (Auto) 0.800, Neut % (Auto) 69.3, Lymph % (Auto) 23.3, Gulf % (Auto) 5.8, Eos % (Auto) 0.0, Baso % (Auto) 0.8, Absolute Neuts (auto) 2.5, Absolute Lymphs (auto) 0.84, Nucleated RBC % 0 08/13/21 18:45: Sodium 139, Potassium 4.4, Chloride 105, Carbon Dioxide 25.0, Anion Gap 9, BUN 44 H, Creatinine 1.67 H, Estim Creat Clear Calc 40.39, Est GFR (MDRD) Af Amer 53 L, Est GFR (MDRD) Non-Af 44 L, BUN/Creatinine Ratio 26.3 H, Glucose 117 H, Calcium 6.8 L, Troponin I High Sens 17 08/13/21 18:45: D-Dimer Quant (PE/DVT) 1.24 H* 08/13/21 18:45: B-Natriuretic Peptide 1134.2 H 08/13/21 21:22: Troponin I High Sens 12 08/13/21 21:22: Magnesium 1.7, Ferritin 246, Lactate Dehydrogenase 211, C-React Prot Ext Range 9.90 H 08/14/21 01:40: Procalcitonin 0.31 H 08/14/21 01:40: WBC 2.4 L, RBC 2.66 L, Hgb 7.0 L, Hct 23.3 L, MCV 87.6, MCH 26.3 L, MCHC 30.0 L, RDW Std Deviation 60.9 H, RDW Coeff of Rafael 19.5 H, Plt Count 120 L, Immature Gran % (Auto) 1.300 H, Neut % (Auto) 70.2 H, Lymph % (Auto) 22.7, Gulf % (Auto) 5.0, Eos % (Auto) 0.0, Baso % (Auto) 0.8, Absolute Neuts (auto) 1.7 L, Absolute Lymphs (auto) 0.54 L, Nucleated RBC % 0.8, Diff Path Review November foll, Anisocytosis 2+ 08/14/21 01:40: Sodium 139, Potassium 4.5, Chloride 107, Carbon Dioxide 24.0, Anion Gap 8, BUN 48 H, Creatinine 1.68 H, Estim Creat Clear Calc 40.15, Est GFR (MDRD) Af Amer 52 L, Est GFR (MDRD) Non-Af 43 L, BUN/Creatinine Ratio 28.6 H, Glucose 110 H, Calcium 6.5 L*, Total Bilirubin 0.40, AST 8 L, ALT 9 L, Alkaline Phosphatase 49, Total Protein 5.7 L, Albumin 2.7 L, Globulin 3.0, Albumin/Globulin Ratio 0.9, TSH 0.52, Free T4 1.26 08/14/21 01:40: Troponin I High Sens 17 08/14/21 04:42: Hgb 7.1 L, Hct 23.5 L 08/14/21 08:57: WBC 2.3 L, RBC 2.96 L, Hgb 7.8 L, Hct 26.4 L, MCV 89.2, MCH 26.4 L, MCHC 29.5 L, RDW Std Deviation 63.3 H, RDW Coeff of Rafael 19.9 H, Plt Count 120 L, Immature Gran % (Auto) 1.300 H, Neut % (Auto) 73.3 H, Lymph % (Auto) 19.8, Gulf % (Auto) 4.7, Eos % (Auto) 0.0, Baso % (Auto) 0.9, Absolute Neuts (auto) 1.7 L, Absolute Lymphs (auto) 0.46 L, Nucleated RBC % 0, Diff Path Review November foll, Anisocytosis 1+ 08/14/21 08:57: Sodium 137, Potassium 4.1, Chloride 107, Carbon Dioxide 22.0, Anion Gap 8, BUN 46 H, Creatinine 1.59 H, Estim Creat Clear Calc 42.42, Est GFR (MDRD) Af Amer 56 L, Est GFR (MDRD) Non-Af 46 L, BUN/Creatinine Ratio 28.9 H, Glucose 134 H, Calcium 6.8 L, Total Bilirubin 0.30, AST 7 L, ALT 10 L, Alkaline Phosphatase 49, Total Protein 5.9 L, Albumin 2.8 L, Globulin 3.1, Albumin/Globulin Ratio 0.9 Micro: Microbiology 08/13/21 22:40 Urine, Clean Catch Legionella Antigen - Final 08/13/21 22:40 Urine, Clean Catch Streptococcus pneumoniae Antigen (M - Final Radiography Diagnostic Testing: Radiology Impression Chest X-Ray 08/13/21 19:00 IMPRESSION: 1. Stable cardiomegaly without evidence of congestive failure. 2. Moderate to marked multi lobar interstitial and patchy alveolar infiltrate/pneumonia. Multilobar atypical pneumonia is a consideration. No consolidation or effusion. Electronically Signed: Venkata Oglesby MD at 20:33 EST , Rhythm Strip Rhythm Strip: A-fib Rate: 136 Physical Exam Const alert, oriented x3 and no apparent distress Orientation / Consciousness: awake, oriented to person, oriented to place and oriented to time HEENT normocephalic and moist oral mucous membranes Eyes PERRL, EOMs intact bilaterally and conjunctivae normal Neck no lymphadenopathy Resp clear to auscultation bilaterally Auscultation: diminished lung sounds Cardio Cardio Narrative: Atrial fibrillation Peripheral Pulses: pulses 2+ throughout GI normal to inspection, nondistended, normoactive bowel sounds, non-tender and non-distended Extremity normal to inspection General Extremity: edema bilateral lower extremity Details: moderate Skin no rashes or lesions noted Lesions: no lesions Rashes: no rashes Trauma: no lacerations or abrasions Neuro CN's II-XII intact bilaterally, no focal motor deficits, no sensory deficits noted and deep tendon reflexes 2+ bilaterally Psych mental status grossly normal and affect normal Assessment & Plan Assessment/Plan (1) Atrial fibrillation with RVR: PLAN: 1. Atrial fibrillation with RVR, known prior history of A. fib- underwent previous ablation. Amiodarone discontinued. Initiated on flecainide and metoprolol. Continue anticoagulation with Eliquis. Previous echocardiogram May 2020 demonstrated an EF of 55%, stage II diastolic dysfunction. Med adjustment per cardiology. 2. Acute on chronic normocytic anemia/chronic pancytopenia-appears chronic in nature however mildly below baseline. Trend H&H. Check stool for occult blood. Previous iron studies consistent with iron deficiency. Begin iron supplementation. 3. Recent bilateral pneumonia secondary to COVID-19 with associated hypoxia- patient recently discharged on 4 L nasal cannula. Currently weaned off of O2. Ambulatory pulse ox prior to discharge. Patient is out of isolation and completed treatment. 4. Acute kidney injury-IV fluids, trend BMP. 5. Hypocalcemia-replaced, improved. Trend labs. 6. Chronic myeloproliferative neoplasm/myelofibrosis with chronic pancytopenia- chronic splenomegaly. On fedratinib. Follow-up with oncology. 7. Hypothyroidism-continue Synthroid regimen. Thyroid studies normal. 8. CAD-on metoprolol, Eliquis. Nonobstructive. 9. Hypertension-stable, continue metoprolol. 10. Hyperlipidemia-on gemfibrozil. Not on statin. 11. BPH-history of TURP/UroLift. On finasteride. DVT prophylaxis-Eliquis This patient was seen by ALLISON Katz under the supervision of Dr. Garcia. Documented by User: Dr. Chidi Garcia MD 08/14/21 12:50 Objective Data Lab / Micro Data Result Diagrams: 08/14/21 08:57 08/14/21 08:57 Assessment & Plan Addt'l Comments This patient was seen in conjunction with ALLISON Katz . I have in dependently interviewed and examined the patient and reviewed pertinent historical, laboratory, and other data. Please refer to ALLISON Katz note for details of this patient's presentation, findings, and recommendations. I have reviewed ALLISON Katz note and concur with documented findings. In brief, patient is a 71-year-old gentleman with multiple comorbidities includi ng myelofibrosis, paroxysmal A. fib with recent failed ablation, recent admission for COVID 19 who presented with palpitations. Patient was found to be in A. fib with RVR admitted to a monitored bed for subsequent management. As part of patient's management consult was placed to cardiology. Physical Examination: GENERAL: cooperative HEENT: Atraumatic; EYES; Anicteric, Normal Conjunctiva NECK; supple, normal thyroid, RESPIRATORY: Diminished to auscultation CARDIOVASCULAR: Irregularly irregular GI: soft, normoactive bowel sounds, : No Renal angle tenderness; EXTREMITIES: No edema, no clubbing, MUSCULOSKELETAL: no muscle waisting NEURO: Awake; no lateralizing signs. SKIN: No Rash PSYCH; Flat affect Assessment: 1. Paroxysmal A. fib with RVR 2. Chronic hypoxic respiratory failure on 4 L of oxygen due to recent COVID 19 pneumonia 3. Myelofibrosis 4. Severe anemia related to patient's myelofibrosis?on darbepoetin alpha 5. Pancytopenia related to patient's myelofibrosis 6. Cardiac congestive heart failure with preserved ejection fraction 7. Essential hypertension 8. Dyslipidemia 9. Coronary artery disease 10. BPH with previous TURP?currently on alfuzosin 11. History of previous goiter status post thyroidectomy currently on levothyroxine 5. DVT prophylaxis?apixaban Plan Case -discussed with cardiology plan is to adjust patient current antiarrhythmic medications with reinitiation of his flecainide and discontinuation of amiodarone with metoprolol being increased 200 mg p.o. twice daily ?Continue to monitor his H&H with plan to transfuse if hemoglobin falls below 7 or patient is deemed to be profoundly symptomatic - Continue with current home medications as initiated on admission Recommendations: 1. I have discussed the results of my overview and impressions with the patient 2. Options for management were reviewed Total time spent by myself and the advanced practice practitioner evaluating patient, reviewing labs, subsequent management decisions, discussion with patient as well as other providers 40 minutes ( 25 of which was spent by myself) Charges/Coding Visit Charges Inpatient E&M: 02368 Subs Hosp L3
[2021-08-14 13:42] LABS: Pathologist Review Reviewed
[2021-08-14 13:49] LABS: Hematocrit 25.9 % (40-54); Hemoglobin 7.8 g/dL (13.0-16.5)
--- NOTE | 2021-08-14 14:09 | CASEMGMT ---
Social Work SW met with pt and and assisted pt in completing HCPOA and LW. Pt naming his Penny Kenney as HCPOA. Copy placed in pt chart and original given to pt. CHRIS Orosco
[2021-08-14] MEDS: Loratadine 10 MG Tablet PO (17:17)
[2021-08-14] MEDS: Tamsulosin HCl 0.4 MG Capsule PO (19:58)
[2021-08-14] MEDS: Finasteride 5 MG Tablet PO (19:58)
[2021-08-15] VITALS (14 sets, daily range): BP systolic 88–107; BP diastolic 65–81; PULSE 107–117; RESP 16–20; TEMP 36.6–36.8; O2SAT 93–98
[2021-08-15] MEDS: 0.9% Normal Saline 1,000 ML 100 ML IV (03:49)
[2021-08-15] MEDS: Levothyroxine 150 MCG Tablet 300 MCG PO (05:28)
[2021-08-15 05:35] LABS: Absolute Lymphocyte Count 0.68 X10^3/uL (0.83-4.51); Absolute Neutrophil Count 2.5 X10^3/uL (2.0-7.7); Basophil# 0.03 X10^3/uL; Basophil% 0.9 % (0-1); Hematocrit 25.9 % (40-54); Hemoglobin 7.7 g/dL (13.0-16.5); Lymphocyte # 0.68 X10^3/ul (0.83-4.51); Lymphocyte % 19.5 % (19-41); Mean Corp Hgb Conc 29.7 g/dL (32-36); Mean Corpuscular Hgb 26.2 pg (27.0-32.0); Mean Corpuscular Volume 88.1 fL (80-94); Monocyte# 0.21 X10^3/uL; NRBC Flagged by Analyzer 0 % (0-5); Neutrophil # 2.54 X10^3/uL (2.7-7.7); Neutrophil % 72.7 % (47-70); Platelet Count 140 K/mm3 (150-450); RBC Distribution Width CV 19.9 % (11.6-14.6); RBC Distribution Width SD 63.2 fl (35.1-43.9); Red Blood Count 2.94 M/mm3 (4.6-6.2); White Blood Count 3.5 K/mm3 (4.4-11.0)
[2021-08-15 06:09] LABS: Anion Gap 5 (5-15); BUN 46 mg/dL (7-18); BUN/Creat Ratio 27.9 RATIO (10-20); Calcium,Total 6.6 mg/dL (8.5-10.1); Chloride 110 mmol/L (98-107); Creatinine, Serum 1.65 mg/dL (0.70-1.30); EST Glomerular Filtration Rate 44 mL/min (>60); Est Glom Filt Rate - Afr Amer 53 mL/min (>60); Estimated Creatinine Clearance 40.88 ml/min; Glucose 94 mg/dL (74-106); Potassium 4.6 mmol/L (3.5-5.1); Sodium Level 139 mmol/L (136-145)
[2021-08-15] MEDS: Calcium (Elemental) 500 MG Tablet PO (08:57)
[2021-08-15] MEDS: Allopurinol 300 MG Tablet PO (08:57)
[2021-08-15] MEDS: Iron Polysaccharide Complex 150 MG CAPSULE PO (08:57)
[2021-08-15] MEDS: Magnesium Chloride 64 MG Delay Rel.Tablet 128 MG PO (08:57)
[2021-08-15] MEDS: Gemfibrozil 600 MG Tablet PO (08:58)
[2021-08-15] MEDS: Loratadine 10 MG Tablet PO (08:58)
[2021-08-15] MEDS: Multivitamins,Ther W-Minerals Tablet 1 TABLET PO (08:58)
[2021-08-15] MEDS: APIXABAN 5 MG TABLET PO ×2 (08:59→20:57)
[2021-08-15] MEDS: Flecainide 100 MG Tablet PO ×2 (09:14→20:58)
[2021-08-15] MEDS: Metoprolol(XL)Succ 100 MG Tablet PO ×2 (09:14→20:59)
--- NOTE | 2021-08-15 09:25 | DCINST_ITS ---
Discharge Instructions Diet Discharge Diet: Low fat / Low cholesterol Activity Discharge Activity: Return to Normal Activity Dressing / Incision Call your doctor if you observe: Shortness of breath, Dizziness and Chest pain Follow Up Care Test Results: Test results from this visit will be discussed in further detail at your follow-up appointment, if applicable. Discharge Plan Admission Admit Date/Time: 08/13/21 23:46 Primary Reason for Your Visit: Atrial fibrillation with RVR Attending Provider: Chidi Garcia Primary Care Provider: Diogenes Suarez Consulting Providers: Rubén Guo Instructions Additional Instructions / Restrictions: Follow-up with vascular physician as scheduled. Discharge Orders/Prescriptions Prescriptions: New polysaccharide iron complex [Ferrex 150] 150 mg iron Capsule 150 mg PO DAILYCM 30 Days Qty: 30 RF: 0 metoprolol succinate 100 mg Tablet Extended Release 24 Hr 100 mg PO BID 30 Days Qty: 60 RF: 0 flecainide 100 mg Tablet 100 mg PO BID 30 Days Qty: 60 RF: 0 Continued levothyroxine 112 mcg tablet 300 mcg PO DAILY RF: 0 gemfibrozil 600 MG tablet 600 mg PO DAILY RF: 0 allopurinol 300 MG tablet 300 mg PO DAILY RF: 0 finasteride 5 MG tablet 5 mg PO QHS RF: 0 alfuzosin 10 MG tablet extended release 24 hr 10 mg PO QHS RF: 0 fedratinib 100 MG capsule 200 mg PO DAILY RF: 0 darbepoetin aster in polysorbat 100 mcg/0.5 mL syringe 100 mcg SC Q14D RF: 0 multivitamin with minerals 1 EACH tablet 1 ea PO DAILY RF: 0 vitamin E 400 UNIT capsule 400 unit PO DAILY RF: 0 magnesium oxide 500 MG capsule 500 mg PO DAILY RF: 0 fluticasone propionate 50 mcg/actuation [place],Suspension 1 spray INTRANASAL BID RF: 0 apixaban 5 mg Tablet 5 mg PO BID RF: 0 Changed calcium carbonate 600 MG tablet 600 mg PO BID Qty: 0 RF: 0 Discontinued metoprolol succinate 50 mg tablet extended release 24 hr 75 mg PO BID RF: 0 Referrals / Follow Up: Rubén Guo MD [STAFF PHYSICIAN] - Within 2 Weeks (Follow up with [facility]) Diogenes Suarez DO [Primary Care Provider] - In 1 Week Disposition Disposition (needs filled in before D/C Order can be placed): Home, Self Care
--- NOTE | 2021-08-15 09:36 | DS.PCM_ITS ---
Documented by User: Zulma Villanueva NP, [facility] 08/15/21 09:46 Providers Date of Admission: 08/13/21 Date of Discharge: 08/15/21 Primary Care Physician: Dr. Diogenes Suarez, Consultations 08/13/21 23:41 Consult: Cardiology Routine Consulting Provider: Rubén Guo Reason for Consult: PAF w/ RVR, palpitations, taken off flecainide recently at [place] [facility] Consult: No MD Notified: Yes Date Notified: 08/13/21 Time Notified: 23:41 Method of Notification: cortext Reason For Visit: PAF WITH RVR Diagnosis Discharge Diagnosis (1) Atrial fibrillation with RVR: Status: Acute Code(s): I48.91 - Unspecified atrial fibrillation Medications at Discharge Home Medications allopurinol 300 mg PO DAILY 02/04/18 finasteride 5 mg PO QHS 02/04/18 gemfibrozil 600 mg PO DAILY 02/04/18 alfuzosin 10 mg PO QHS 04/21/20 fedratinib 200 mg PO DAILY 04/21/20 darbepoetin aster in polysorbat 100 mcg/0.5 mL in polysorbate injection syringe 100 mcg SC Q14D 05/15/20 magnesium oxide 500 mg PO DAILY 07/30/20 multivitamin with minerals 1 ea PO DAILY 07/30/20 vitamin E 400 unit PO DAILY 07/30/20 levothyroxine 112 mcg tablet 300 mcg PO DAILY tab 08/13/20 apixaban 5 mg PO BID 08/13/21 fluticasone propionate 1 spray INTRANASAL BID 08/13/21 calcium carbonate 600 mg PO BID #0 tab 08/15/21 flecainide 100 mg PO BID 30 Days #60 tab 08/15/21 metoprolol succinate 100 mg PO BID 30 Days #60 tab 08/15/21 polysaccharide iron complex [Ferrex 150] 150 mg PO DAILYCM 30 Days #30 cap 08/15/21 Hospital Course Operations None Procedures None Summary of Care Provided Hospital Course: Patient is a 71-year-old male admitted 08/13/2021 due to palpitations. 1. Atrial fibrillation with RVR, known prior history of A. fib-underwent previous ablation. Amiodarone discontinued. Initiated on flecainide and metoprolol. Continue anticoagulation with Eliquis. Previous echocardiogram 04/11/2021 demonstrated an EF of 57%. Follow-up with cardiology in 2 weeks. Follow-up with electrophysiology as well. 2. Acute on chronic normocytic anemia/chronic pancytopenia-appears chronic in nature however mildly below baseline. H&H has remained stable. Previous iron studies consistent with iron deficiency. Continue iron supplementation at discharge. 3. Recent bilateral pneumonia secondary to COVID-19 with associated hypoxia- patient recently discharged on 4 L nasal cannula. Currently weaned off of O2. Ambulatory pulse ox prior to discharge. Patient is out of isolation and completed treatment. 4. CKD stage IIIa-based on current and prior GFR. Initially acute kidney injury suspected however no improvement with IV fluids and based on prior labs, patient has a previous component of CKD. Recommend repeat BMP in 1 week by PCP for further management. 5. Hypocalcemia-increased home calcium supplement, repeat labs as outpatient. 6. Chronic myeloproliferative neoplasm/myelofibrosis with chronic pancytopenia- chronic splenomegaly. On fedratinib. Follow-up with oncology. 7. Hypothyroidism-continue Synthroid regimen. Thyroid studies normal. 8. CAD-on metoprolol, Eliquis. Nonobstructive. 9. Hypertension-stable, continue metoprolol. 10. Hyperlipidemia-on gemfibrozil. Not on statin. 11. BPH-history of TURP/UroLift. On finasteride. Physical Exam Const alert, oriented x3 and no apparent distress Orientation / Consciousness: awake, oriented to person, oriented to place and oriented to time HEENT normocephalic and moist oral mucous membranes Eyes PERRL, EOMs intact bilaterally and conjunctivae normal Neck no lymphadenopathy Resp clear to auscultation bilaterally Auscultation: diminished lung sounds Cardio Cardio Narrative: Atrial fibrillation Peripheral Pulses: pulses 2+ throughout GI normal to inspection, nondistended, normoactive bowel sounds, non-tender and non-distended Extremity normal to inspection General Extremity: edema bilateral lower extremity Details: moderate Skin no rashes or lesions noted Lesions: no lesions Rashes: no rashes Trauma: no lacerations or abrasions Neuro CN's II-XII intact bilaterally, no focal motor deficits, no sensory deficits not ed and deep tendon reflexes 2+ bilaterally Psych mental status grossly normal and affect normal Patient seen and examined prior to discharge. Physical assessment as noted above. Patient is stable for discharge with follow up recommendations as noted above. This patient was seen by ALLISON Katz under the supervision of Dr. Garcia. Weight / BMI Weight Weight: 183 lb 13.848 oz Body Mass Index (BMI) 27.8 ABG / Lab / Microbiology Data Result Diagrams: 08/15/21 05:15 08/15/21 05:15 Laboratory: Laboratory Results - last 24 hr 08/14/21 01:40: Diff Path Review Reviewed 08/14/21 08:57: Diff Path Review May 08/14/21 13:40: Hgb 7.8 L, Hct 25.9 L 08/15/21 05:15: WBC 3.5 L, RBC 2.94 L, Hgb 7.7 L, Hct 25.9 L, MCV 88.1, MCH 26.2 L, MCHC 29.7 L, RDW Std Deviation 63.2 H, RDW Coeff of Rafael 19.9 H, Plt Count 140 L, Immature Gran % (Auto) 0.900, Neut % (Auto) 72.7 H, Lymph % (Auto) 19.5, Lucas % (Auto) 6.0, Eos % (Auto) 0.0, Baso % (Auto) 0.9, Absolute Neuts (auto) 2.5, Absolute Lymphs (auto) 0.68 L, Nucleated RBC % 0 08/15/21 05:15: Sodium 139, Potassium 4.6, Chloride 110 H, Carbon Dioxide 24.0, Anion Gap 5, BUN 46 H, Creatinine 1.65 H, Estim Creat Clear Calc 40.88, Est GFR (MDRD) Af Amer 53 L, Est GFR (MDRD) Non-Af 44 L, BUN/Creatinine Ratio 27.9 H, Glucose 94, Calcium 6.6 L Microbiology: Microbiology 08/14/21 11:03 Sputum, Expectorated/Coughed Gram Stain - Final 08/13/21 22:40 Urine, Clean Catch Legionella Antigen - Final 08/13/21 22:40 Urine, Clean Catch Streptococcus pneumoniae Antigen (M - Final D/C Instructions Discharge Diet: Low fat / Low cholesterol Call your doctor if you observe: Shortness of breath, Dizziness and Chest pain Meaningful Use Info Meaningful Use Diagnoses (Choose all that apply): None applicable Discharge Plan Admission Admit Date/Time: 08/13/21 23:46 Primary Reason for Your Visit: Atrial fibrillation with RVR Attending Provider: Chidi Garcia Primary Care Provider: Diogenes Suarez Consulting Providers: Rubén Guo Instructions Additional Instructions / Restrictions: Follow-up with [facility] as scheduled. Discharge Orders/Prescriptions Prescriptions: New polysaccharide iron complex [Ferrex 150] 150 mg iron Capsule 150 mg PO DAILYCM 30 Days Qty: 30 RF: 0 metoprolol succinate 100 mg Tablet Extended Release 24 Hr 100 mg PO BID 30 Days Qty: 60 RF: 0 flecainide 100 mg Tablet 100 mg PO BID 30 Days Qty: 60 RF: 0 Continued levothyroxine 112 mcg tablet 300 mcg PO DAILY RF: 0 gemfibrozil 600 MG tablet 600 mg PO DAILY RF: 0 allopurinol 300 MG tablet 300 mg PO DAILY RF: 0 finasteride 5 MG tablet 5 mg PO QHS RF: 0 alfuzosin 10 MG tablet extended release 24 hr 10 mg PO QHS RF: 0 fedratinib 100 MG capsule 200 mg PO DAILY RF: 0 darbepoetin aster in polysorbat 100 mcg/0.5 mL syringe 100 mcg SC Q14D RF: 0 multivitamin with minerals 1 EACH tablet 1 ea PO DAILY RF: 0 vitamin E 400 UNIT capsule 400 unit PO DAILY RF: 0 magnesium oxide 500 MG capsule 500 mg PO DAILY RF: 0 fluticasone propionate 50 mcg/actuation [place],Suspension 1 spray INTRANASAL BID RF: 0 apixaban 5 mg Tablet 5 mg PO BID RF: 0 Changed calcium carbonate 600 MG tablet 600 mg PO BID Qty: 0 RF: 0 Discontinued metoprolol succinate 50 mg tablet extended release 24 hr 75 mg PO BID RF: 0 Referrals / Follow Up: Rubén Guo MD [STAFF PHYSICIAN] - Within 2 Weeks (Follow up with [facility]) Diogenes Suarez DO [Primary Care Provider] - In 1 Week Disposition Disposition (needs filled in before D/C Order can be placed): Home, Self Care Documented by User: Dr. Chidi Garcia MD 08/15/21 09:54 Providers Date of Admission: 08/13/21 Reason For Visit: PAF WITH RVR Medications at Discharge Home Medications allopurinol 300 mg PO DAILY 02/04/18 finasteride 5 mg PO QHS 02/04/18 gemfibrozil 600 mg PO DAILY 02/04/18 alfuzosin 10 mg PO QHS 04/21/20 fedratinib 200 mg PO DAILY 04/21/20 darbepoetin aster in polysorbat 100 mcg/0.5 mL in polysorbate injection syringe 100 mcg SC Q14D 05/15/20 magnesium oxide 500 mg PO DAILY 07/30/20 multivitamin with minerals 1 ea PO DAILY 07/30/20 vitamin E 400 unit PO DAILY 07/30/20 levothyroxine 112 mcg tablet 300 mcg PO DAILY tab 08/13/20 apixaban 5 mg PO BID 08/13/21 fluticasone propionate 1 spray INTRANASAL BID 08/13/21 calcium carbonate 600 mg PO BID #0 tab 08/15/21 flecainide 100 mg PO BID 30 Days #60 tab 08/15/21 metoprolol succinate 100 mg PO BID 30 Days #60 tab 08/15/21 polysaccharide iron complex [Ferrex 150] 150 mg PO DAILYCM 30 Days #30 cap 08/15/21 Hospital Course Operations None Summary of Care Provided Minutes Spent on Discharge: 35 Hospital Course: This patient was seen in conjunction with ARABELLA Katz . I have independently interviewed and examined the patient and reviewed pertinent historical, laboratory, and other data. Please refer to ALLISON Katz note for details of this patient's presentation, findings, and recommendations. I have reviewed ALLISON Katz note and concur with documented findings. In brief, patient is a 71-year-old gentleman with multiple comorbidities including myelofibrosis, paroxysmal A. fib with recent failed ablation, recent admission for COVID 19 who presented with palpitations. Patient was found to be in A. fib with RVR admitted to a monitored bed for subsequent management. As part of patient's management consult was placed to cardiology. Physical Examination: GENERAL: cooperative HEENT: Atraumatic; EYES; Anicteric, Normal Conjunctiva NECK; supple, normal thyroid, RESPIRATORY: Diminished to auscultation CARDIOVASCULAR: Irregularly irregular GI: soft, normoactive bowel sounds, : No Renal angle tenderness; EXTREMITIES: No edema, no clubbing, MUSCULOSKELETAL: no muscle waisting NEURO: Awake; no lateralizing signs. SKIN: No Rash PSYCH; Flat affect Assessment: 1. Paroxysmal A. fib with RVR 2. Chronic hypoxic respiratory failure on 4 L of oxygen due to recent COVID 19 pneumonia 3. Myelofibrosis 4. Severe anemia related to patient's myelofibrosis?on darbepoetin alpha 5. Pancytopenia related to patient's myelofibrosis 6. Cardiac congestive heart failure with preserved ejection fraction 7. Essential hypertension 8. Dyslipidemia 9. Coronary artery disease 10. BPH with previous TURP?currently on alfuzosin 11. History of previous goiter status post thyroidectomy currently on levothyroxine 5. DVT prophylaxis?apixaban Hospital course; as documented above Total time spent by myself and the advanced practice practitioner evaluating pa brigitte, reviewing labs, subsequent management decisions, discussion with patient as well as other providers 35 minutes ( 20 of which was spent by myself) ABG / Lab / Microbiology Data Result Diagrams: 08/15/21 05:15 08/15/21 05:15 Discharge Plan Admission Admit Date/Time: 08/13/21 23:46 Primary Reason for Your Visit: Atrial fibrillation with RVR Attending Provider: Chidi Garcia Primary Care Provider: Diogenes Suarez Consulting Providers: Rubén Guo Instructions Additional Instructions / Restrictions: Follow-up with [facility] as scheduled. Discharge Orders/Prescriptions Prescriptions: New polysaccharide iron complex [Ferrex 150] 150 mg iron Capsule 150 mg PO DAILYCM 30 Days Qty: 30 RF: 0 metoprolol succinate 100 mg Tablet Extended Release 24 Hr 100 mg PO BID 30 Days Qty: 60 RF: 0 flecainide 100 mg Tablet 100 mg PO BID 30 Days Qty: 60 RF: 0 Continued levothyroxine 112 mcg tablet 300 mcg PO DAILY RF: 0 gemfibrozil 600 MG tablet 600 mg PO DAILY RF: 0 allopurinol 300 MG tablet 300 mg PO DAILY RF: 0 finasteride 5 MG tablet 5 mg PO QHS RF: 0 alfuzosin 10 MG tablet extended release 24 hr 10 mg PO QHS RF: 0 fedratinib 100 MG capsule 200 mg PO DAILY RF: 0 darbepoetin aster in polysorbat 100 mcg/0.5 mL syringe 100 mcg SC Q14D RF: 0 multivitamin with minerals 1 EACH tablet 1 ea PO DAILY RF: 0 vitamin E 400 UNIT capsule 400 unit PO DAILY RF: 0 magnesium oxide 500 MG capsule 500 mg PO DAILY RF: 0 fluticasone propionate 50 mcg/actuation [place],Suspension 1 spray INTRANASAL BID RF: 0 apixaban 5 mg Tablet 5 mg PO BID RF: 0 Changed calcium carbonate 600 MG tablet 600 mg PO BID Qty: 0 RF: 0 Discontinued metoprolol succinate 50 mg tablet extended release 24 hr 75 mg PO BID RF: 0 Referrals / Follow Up: Rubén Guo MD [STAFF PHYSICIAN] - Within 2 Weeks (Follow up with [facility]) Diogenes Suarez DO [Primary Care Provider] - In 1 Week Disposition Disposition (needs filled in before D/C Order can be placed): Home, Self Care Charges/Coding Visit Charges Inpatient E&M: 77814 Disch Hosp Hospital Course Consultations Consultations: Consultations 08/13/21 23:41 Consult: Cardiology Routine Consulting Provider: Rubén Guo Reason for Consult: PAF w/ RVR, palpitations, taken off flecainide recently at [place] [facility] Consult: No MD Notified: Yes Date Notified: 08/13/21 Time Notified: 23:41 Method of Notification: cortext Operations None
[2021-08-15] MEDS: Furosemide 40 MG/4 ML Vial IV ×2 (11:36→16:56)
[2021-08-15 12:21] LABS: Pathologist Review Reviewed
--- NOTE | 2021-08-15 14:25 | PCM.PN.CARD ---
Subjective Subjective Seen and evaluated and appears to be short of breath Objective Data Vital Signs: Vital Signs Temp Pulse Resp BP Pulse Ox 98.2 F 110 H 16 91/71 95 08/15/21 13:10 08/15/21 13:10 08/15/21 13:10 08/15/21 13:10 08/15/21 13:10 Oxygen Flow Rate (L/min) 2 Oxygen Delivery Method Nasal Cannula Weight: 183 lb 3.266 oz Body Mass Index (BMI) 27.8 Intake & Output: Intake and Output for Last 24 Hours 08/13/21 08/14/21 08/15/21 23:59 23:59 23:59 Intake Total 3260.53 / 3260.53 2456.66 / 2456.66 Output Total 852 / 1152 900 / 900 Balance 2408.53 / 2108.53 1556.66 / 1556.66 Lab / Micro Data Result Diagrams: 08/15/21 05:15 08/15/21 05:15 Labs: Laboratory Results - last 24 hr 08/14/21 08:57: Diff Path Review Reviewed 08/15/21 05:15: WBC 3.5 L, RBC 2.94 L, Hgb 7.7 L, Hct 25.9 L, MCV 88.1, MCH 26.2 L, MCHC 29.7 L, RDW Std Deviation 63.2 H, RDW Coeff of Rafael 19.9 H, Plt Count 140 L, Immature Gran % (Auto) 0.900, Neut % (Auto) 72.7 H, Lymph % (Auto) 19.5, [place] % (Auto) 6.0, Eos % (Auto) 0.0, Baso % (Auto) 0.9, Absolute Neuts (auto) 2.5, Absolute Lymphs (auto) 0.68 L, Nucleated RBC % 0 08/15/21 05:15: Sodium 139, Potassium 4.6, Chloride 110 H, Carbon Dioxide 24.0, Anion Gap 5, BUN 46 H, Creatinine 1.65 H, Estim Creat Clear Calc 40.88, Est GFR (MDRD) Af Amer 53 L, Est GFR (MDRD) Non-Af 44 L, BUN/Creatinine Ratio 27.9 H, Glucose 94, Calcium 6.6 L Micro: Microbiology 08/14/21 11:03 Sputum, Expectorated/Coughed Gram Stain - Final 08/14/21 11:03 Sputum, Expectorated/Coughed Respiratory Culture - Preliminary Gram negative luis Rhythm Strip Rhythm Strip: A-fib Rate: 136 Cardiology Labs/Tests 08/15/21 05:15: WBC 3.5 L, RBC 2.94 L, Hgb 7.7 L, Hct 25.9 L, MCV 88.1, MCH 26.2 L, MCHC 29.7 L, Plt Count 140 L, Immature Gran % (Auto) 0.900, Neut % (Auto) 72.7 H, Lymph % (Auto) 19.5, [place] % (Auto) 6.0, Eos % (Auto) 0.0, Baso % (Auto) 0.9, Absolute Neuts (auto) 2.5, Nucleated RBC % 0 08/15/21 05:15: Sodium 139, Potassium 4.6, Chloride 110 H, Carbon Dioxide 24.0, Anion Gap 5, BUN 46 H, Creatinine 1.65 H, Est GFR (MDRD) Af Amer 53 L, Est GFR (MDRD) Non-Af 44 L, BUN/Creatinine Ratio 27.9 H, Glucose 94, Calcium 6.6 L Rhythm: EKG: ECHO: Stress Test: Cardiac Cath: PCI: CT Surgery: Holter monitor: EPS: PPM: CXR: Chest CT Scan: Assessment & Plan Assessment/Plan (1) Atrial fibrillation with RVR: PLAN: He does have a history of atrial fibrillation with rapid ventricular response rate. He recently underwent an ablation which appear has failed. It is not clear whether this is due to the COVID-19 infection or otherwise. His flecainide was also discontinued for reasons that are not entirely clear. I would recommend that we reinstitute his flecainide Discontinue amiodarone Increase metoprolol to 100 mg twice a day Continue anticoagulation and watch for any bleeding diatheses Would like to add Cardizem 120 mg daily at 3:00. Patient also appears to be short of breath it is not clear whether this is due to his recent COVID or CHF. I would like him to get an additional dose of Lasix and watch him overnight for his heart rate to improve better. Would recommend follow-up with the salicylic acid blender to discuss whether the patient is a candidate for watchman device. This however would not necessarily solve the problem of atrial fibrillation. The above has been discussed with him. Thank you for allowing me to participate in the care of your patient. Please don't hesitate to call if any issues arise. Above discussed with nurse practitioner
--- NOTE | 2021-08-15 14:26 | PN.HOSP_ITS ---
Documented by User: Zulma Villanueva NP, ESCALATOR OPERATOR-C 08/15/21 14:40 Subjective Subjective Patient seen and examined. Rate improved however patient reports increased shortness of breath and lower extremity swelling. Objective Data Objective Data Vital Signs: Vital Signs Temp Pulse Resp BP Pulse Ox 98.2 F 110 H 16 91/71 95 08/15/21 13:10 08/15/21 13:10 08/15/21 13:10 08/15/21 13:10 08/15/21 13:10 Oxygen Flow Rate (L/min) 2 Oxygen Delivery Method Nasal Cannula Weight: 183 lb 3.266 oz Body Mass Index (BMI) 27.8 Intake & Output: Intake and Output for Last 24 Hours 08/13/21 08/14/21 08/15/21 23:59 23:59 23:59 Intake Total 3260.53 / 3260.53 2456.66 / 2456.66 Output Total 852 / 1152 900 / 900 Balance 2408.53 / 2108.53 1556.66 / 1556.66 Lab / Micro Data Result Diagrams: 08/15/21 05:15 08/15/21 05:15 Labs: Laboratory Results - last 24 hr 08/14/21 08:57: Diff Path Review Reviewed 08/15/21 05:15: WBC 3.5 L, RBC 2.94 L, Hgb 7.7 L, Hct 25.9 L, MCV 88.1, MCH 26.2 L, MCHC 29.7 L, RDW Std Deviation 63.2 H, RDW Coeff of Rafael 19.9 H, Plt Count 140 L, Immature Gran % (Auto) 0.900, Neut % (Auto) 72.7 H, Lymph % (Auto) 19.5, [place] % (Auto) 6.0, Eos % (Auto) 0.0, Baso % (Auto) 0.9, Absolute Neuts (auto) 2.5, Absolute Lymphs (auto) 0.68 L, Nucleated RBC % 0 08/15/21 05:15: Sodium 139, Potassium 4.6, Chloride 110 H, Carbon Dioxide 24.0, Anion Gap 5, BUN 46 H, Creatinine 1.65 H, Estim Creat Clear Calc 40.88, Est GFR (MDRD) Af Amer 53 L, Est GFR (MDRD) Non-Af 44 L, BUN/Creatinine Ratio 27.9 H, Glucose 94, Calcium 6.6 L Micro: Microbiology 08/14/21 11:03 Sputum, Expectorated/Coughed Gram Stain - Final 08/14/21 11:03 Sputum, Expectorated/Coughed Respiratory Culture - Preliminary Gram negative luis 08/13/21 22:40 Urine, Clean Catch Legionella Antigen - Final 08/13/21 22:40 Urine, Clean Catch Streptococcus pneumoniae Antigen (M - Final Rhythm Strip Rhythm Strip: A-fib Rate: 136 Physical Exam Const alert, oriented x3 and no apparent distress Orientation / Consciousness: awake, oriented to person, oriented to place and oriented to time HEENT normocephalic and moist oral mucous membranes Eyes PERRL, EOMs intact bilaterally and conjunctivae normal Neck no lymphadenopathy Resp Auscultation: crackles bilateral base Cardio Cardio Narrative: Atrial fibrillation Peripheral Pulses: pulses 2+ throughout GI normal to inspection, nondistended, normoactive bowel sounds, non-tender and non-distended Extremity normal to inspection General Extremity: edema bilateral lower extremity Details: moderate Skin no rashes or lesions noted Lesions: no lesions Rashes: no rashes Trauma: no lacerations or abrasions Neuro CN's II-XII intact bilaterally, no focal motor deficits, no sensory deficits noted and deep tendon reflexes 2+ bilaterally Psych mental status grossly normal and affect normal Assessment & Plan Assessment/Plan (1) Atrial fibrillation with RVR: PLAN: 1. Atrial fibrillation with RVR, known prior history of A. fib- underwent previous ablation. Amiodarone discontinued. Initiated on flecainide and metoprolol. Cardizem added. Continue anticoagulation with Eliquis. Previous echocardiogram 04/11/2021 demonstrated an EF of 57%. Will need follow- up with electrophysiology at discharge. 2. Acute on chronic normocytic anemia/chronic pancytopenia-appears chronic in nature however mildly below baseline. H&H has remained stable. Previous iron studies consistent with iron deficiency. Continue iron supplementation. Stool for occult blood pending. 3. Mild heart failure with preserved ejection fraction-suspect secondary to #1 as well as IV fluids for acute kidney injury. BNP on admission 1134. Chest x- ray admission without congestion. IV Lasix 40 mg twice daily. Strict I&O. 4. Recent bilateral pneumonia secondary to COVID-19 with associated hypoxia- patient recently discharged on 4 L nasal cannula. Currently weaned off of O2. Ambulatory pulse ox prior to discharge. Patient is out of isolation and completed treatment. 5. CKD stage IIIa-based on current and prior GFR. Trend BMP. 6. Hypocalcemia-increased home calcium supplement, repeat labs as outpatient. 7. Chronic myeloproliferative neoplasm/myelofibrosis with chronic pancytopenia- chronic splenomegaly. On fedratinib. Follow-up with oncology. 8. Hypothyroidism-continue Synthroid regimen. Thyroid studies normal. 9. CAD-on metoprolol, Eliquis. Nonobstructive. 10. Hypertension-stable, continue metoprolol. 11. Hyperlipidemia-on gemfibrozil. Not on statin. 12. BPH-history of TURP/UroLift. On finasteride. DVT prophylaxis-Eliquis This patient was seen by ALLISON Katz under the supervision of Dr. Garcia. Documented by User: Dr. Chidi Garcia MD 08/15/21 14:49 Objective Data Lab / Micro Data Result Diagrams: 08/15/21 05:15 08/15/21 05:15 Assessment & Plan Addt'l Comments This patient was seen in conjunction with ALLISON Katz . I have independently interviewed and examined the patient and reviewed pertinent historical, laboratory, and other data. Please refer to ALLISON Katz note for details of this patient's presentation, findings, and recommendations. I have reviewed ALLISON Katz note and concur with documented findings. In brief, patient is a 71-year-old gentleman with multiple comorbidities including myelofibrosis, paroxysmal A. fib with recent failed ablation, recent admission for COVID 19 who presented with palpitations. Patient was found to be in A. fib with RVR admitted to a monitored bed for subsequent management. As part of patient's management consult was placed to cardiology. 08/15/2021; plan was for patient to be discharged home however he went into acute congestive heart failure next 18 patient being kept. Patient was started on Lasix. This was discussed with both the patient and the and they both agree to staying an extra day. His heart rate remains relatively well controlled Physical Examination: GENERAL: cooperative HEENT: Atraumatic; EYES; Anicteric, Normal Conjunctiva NECK; supple, normal thyroid, RESPIRATORY: Diminished to auscultation CARDIOVASCULAR: Irregularly irregular GI: soft, normoactive bowel sounds, : No Renal angle tenderness; EXTREMITIES: edema, no clubbing, MUSCULOSKELETAL: no muscle waisting NEURO: Awake; no lateralizing signs. SKIN: No Rash PSYCH; Flat affect Assessment: 1. Paroxysmal A. fib with RVR 2. Chronic hypoxic respiratory failure on 4 L of oxygen due to recent COVID 19 pneumonia 3. Myelofibrosis 4. Severe anemia related to patient's myelofibrosis?on darbepoetin alpha 5. Pancytopenia related to patient's myelofibrosis 6. Cardiac congestive heart failure with preserved ejection fraction 7. Essential hypertension 8. Dyslipidemia 9. Coronary artery disease 10. BPH with previous TURP?currently on alfuzosin 11. History of previous goiter status post thyroidectomy currently on levothyroxine 5. DVT prophylaxis?apixaban Plan Case -discussed with cardiology plan is to adjust patient current antiarrhythmic medications with reinitiation of his flecainide and discontinuation of amiodarone with metoprolol being increased 200 mg p.o. twice daily ?Continue to monitor his H&H with plan to transfuse if hemoglobin falls below 7 or patient is deemed to be profoundly symptomatic - Continue with current home medications as initiated on admission ?08/15/2021; patient went into acute congestive heart failure necessitating patient being kept for additional day Lasix initiated. Patient progress being monitored with strict input and output Daily weights as well as his oxygen sat Recommendations: 1. I have discussed the results of my overview and impressions with the patient 2. Options for management were reviewed Total time spent by myself and the advanced practice practitioner evaluating patient, reviewing labs, subsequent management decisions, discussion with patient as well as other providers 45 minutes ( 25 of which was spent by myself) Charges/Coding Visit Charges Inpatient E&M: 59629 Subs Hosp L3
[2021-08-15] MEDS: dilTIAZem CD 120 MG Capsule PO (14:56)
[2021-08-15] MEDS: Fluticasone 0.05% 1 SPRAY NASAL.SRY NASAL (20:55)
[2021-08-15] MEDS: Finasteride 5 MG Tablet PO (20:57)
[2021-08-15] MEDS: Tamsulosin HCl 0.4 MG Capsule PO (20:58)
[2021-08-16 19:02] LABS: Anion Gap 8 (5-15); BUN 52 mg/dL (7-18); BUN/Creat Ratio 28.1 RATIO (10-20); Chloride 105 mmol/L (98-107); Creatinine, Serum 1.85 mg/dL (0.70-1.30); EST Glomerular Filtration Rate 39 mL/min (>60); Est Glom Filt Rate - Afr Amer 47 mL/min (>60); Estimated Creatinine Clearance 36.46 ml/min; Glucose 123 mg/dL (74-106); Potassium 4.8 mmol/L (3.5-5.1); Sodium Level 136 mmol/L (136-145)
[2021-08-18 11:08] LABS: Hematocrit 47.3 % (40-54); Hemoglobin 13.9 g/dL (13.0-16.5); Mean Corp Hgb Conc 29.4 g/dL (32-36); Mean Corpuscular Hgb 25.6 pg (27.0-32.0); Mean Corpuscular Volume 87.1 fL (80-94); Platelet Count 110 K/mm3 (150-450); RBC Distribution Width SD 63.3 fl (35.1-43.9); Red Blood Count 5.43 M/mm3 (4.6-6.2); White Blood Count 3.5 K/mm3 (4.4-11.0)
[2021-08-18 11:10] LABS: POSITIVE MORPHOLOGY YES
[2021-08-18 11:11] LABS: Differential Indicated SCAN CRITERIA MET; Monocyte% 4.9 % (0-10); Neutrophil % 70.3 % (47-70)
[2021-08-18 11:12] LABS: Absolute Lymphocyte Count 0.86 X10^3/uL (0.83-4.51); Absolute Neutrophil Count 2.8 X10^3/uL (2.0-7.7); Basophil% 0.3 % (0-1); Eosinophils% 1.5 % (0-5); NRBC Flagged by Analyzer 0.6 % (0-5)
[2021-08-18 11:14] LABS: Anisocytosis 2+; Differential Comment SCANNED; Macrocytosis 1+; Microcytosis 1+; Schistocytes 1+
== END 2021-08-16 11:04 | disposition home or self-care (01) | DRG 308 ==
LOC: ED 20:28 → PCU 21:23
PROVIDERS: Nurse Practitioner Family; Admitting Provider Family Medicine; Emergency Provider Emergency Medicine; PCP Preventive Medicine Occupational Medicine; Visit Provider Internal Medicine
DX: I48.0 Paroxysmal atrial fibrillation (principal); I50.33 Acute on chronic diastolic (congestive) heart failure; D61.818 Other pancytopenia; N17.9 Acute kidney failure, unspecified; D75.81 Myelofibrosis; J96.11 Chronic respiratory failure with hypoxia; I13.0 Hypertensive heart and chronic kidney disease with heart failure and stage 1 through stage 4 chronic kidney disease, or unspecified chronic kidney disease; I11.0 Hypertensive heart disease with heart failure; N18.31 Chronic kidney disease, stage 3a; E83.51 Hypocalcemia; E78.5 Hyperlipidemia, unspecified; E89.0 Postprocedural hypothyroidism; I25.10 Atherosclerotic heart disease of native coronary artery without angina pectoris; N40.0 Benign prostatic hyperplasia without lower urinary tract symptoms; E86.0 Dehydration; Z79.01 Long term (current) use of anticoagulants; Z87.891 Personal history of nicotine dependence; Z86.16 Personal history of COVID-19; U09.9 Post COVID-19 condition, unspecified
CPT/HCPCS: 36415; 71045; 80048; 80053; 82274; 82330; 82728; 83615; 83735; 83880; 84145; 84439; 84443; 84484; 85014; 85018; 85025; 85379; 86140; 86850; 86870; 86900; 86901; 86902; 86905; 86920; 86922; 87070; 87077; 87186; 87205; 87449; 93005; 96361; 96374; 99251; 99285; J7030; J7050; A4216; G0463; J0610; J1940; J2916

== ENCOUNTER 2021-08-16 19:12 | Emergency (ER) | payer MEDICARE, SELFPAY ==
--- NOTE | 2021-08-16 19:17 | EKG12_ITS ---
Test Reason : CP Blood Pressure : / mmHG Vent. Rate : 056 BPM Atrial Rate : 056 BPM P-R Int : 300 ms QRS Dur : 114 ms QT Int : 542 ms P-R-T Axes : 090 001 -24 degrees QTc Int : 523 ms Sinus bradycardia with 1st degree A-V block ST & T wave abnormality, consider anterior ischemia Prolonged QT Abnormal ECG Confirmed by RACIEL LYNN MD ([id number]), purchase request editor TANK DIAZ ([id number]) on 08/20/2021 8:13:18 AM Referred By: SHIMON Confirmed By:RACIEL LYNN MD
--- NOTE | 2021-08-16 21:20 | RAD_ITS ---
STUDY: X-RAY CHEST REASON FOR EXAM: Male, 71 years old. SHORT OF BREATH, RECENT DIAG. OF COVID RELATED PNEUMONIA TECHNIQUE: Single AP portable upright view of the chest. COMPARISON: Portable AP upright chest x-ray 08/13/2021 FINDINGS: Bilateral ill-defined mixed, interstitial and alveolar pulmonary infiltrates of inflammation/infection in the mid to lower lung vasquez are grossly unchanged. There is no demonstrated pleural abnormality. There is stable cardiac enlargement. Normal mediastinum. There is stable atherosclerotic calcification of the aortic arch. There are stable multilevel degenerative changes of the visualized thoracic spine. Normal visualized ribs, clavicles, and shoulders. There is no demonstrated abnormality of the visualized soft tissue structures of the upper abdomen. RAD/Chest 1 View (Portable) IMPRESSION: Stable x-ray examination of the chest with bilateral ill-defined pulmonary infiltrates consistent with infection. Electronically Signed: Kurtis Vicente MD at 22:02 EST ,
[2021-08-16 22:29] LABS: Differential Indicated SCAN CRITERIA MET; Hematocrit 47.3 % (40-54); Hemoglobin 13.9 g/dL (13.0-16.5); Mean Corp Hgb Conc 29.4 g/dL (32-36); Mean Corpuscular Hgb 25.6 pg (27.0-32.0); Mean Corpuscular Volume 87.1 fL (80-94); NRBC Flagged by Analyzer 0.6 % (0-5); POSITIVE MORPHOLOGY YES; Platelet Count 110 K/mm3 (150-450); RBC Distribution Width SD 63.3 fl (35.1-43.9); Red Blood Count 5.43 M/mm3 (4.6-6.2); White Blood Count 3.5 K/mm3 (4.4-11.0)
[2021-08-16 22:30] LABS: Monocyte% 4.9 % (0-10); Neutrophil % 70.3 % (47-70)
[2021-08-16 22:31] LABS: Absolute Lymphocyte Count 0.86 X10^3/uL (0.83-4.51); Absolute Neutrophil Count 2.8 X10^3/uL (2.0-7.7); Basophil% 0.3 % (0-1); Differential Comment SCANNED; Eosinophils% 1.5 % (0-5); Platelet Estimate ADEQUATE (ADEQ)
[2021-08-16 22:32] LABS: Anisocytosis 2+; Macrocytosis 1+; Microcytosis 1+; Schistocytes 1+
[2021-08-16 23:11] LABS: ALB/GLOB Ratio 0.9 RATIO (0.9-2.4); AST(SGOT) 31 U/L (15-37); Alanine Aminotransfer ALT/SGPT 20 U/L (16-61); Alkaline Phosphatase 59 U/L (45-117); Anion Gap 9 (5-15); BUN 64 mg/dL (7-18); Calcium,Total 7.1 mg/dL (8.5-10.1); Chloride 102 mmol/L (98-107); Creatinine, Serum 2.91 mg/dL (0.70-1.30); EST Glomerular Filtration Rate 23 mL/min (>60); Est Glom Filt Rate - Afr Amer 28 mL/min (>60); Globulin 3.3 g/dL (2.2-4.2); Glucose 137 mg/dL (74-106); Potassium 6.6 mmol/L (3.5-5.1); Protein, Total 6.3 g/dL (6.4-8.2); Sodium Level 132 mmol/L (136-145); Troponin-I HS 8 pg/mL (3.0-78.0)
--- NOTE | 2021-08-16 23:33 | EDS_ITS ---
DATE OF SERVICE 08/16/21 CHIEF COMPLAINT: Chest pain, shortness of breath, weakness. HISTORY OF PRESENT ILLNESS: This is a 71-year-old male with COVID for the past 4 weeks or so. He was initially admitted at another hospital and recently re- admitted to our hospital, and discharged 3 hours ago. He presents with chest pain and shortness of breath. He is also complaining of some nausea. He was in atrial fibrillation and he converted and he says that his heart rate has been around 50s and 60s. He also has shortness of breath. All of these are chronic, but he felt worse at home after he got back. He has a complicated medical history of myelofibrosis with decreased hemoglobin. However, the hemoglobin has not been to the point where he needs transfusions. PHYSICAL EXAMINATION: VITAL SIGNS: Blood pressure normal, pulse ox 96% on room air. For comfort he was placed on 2 liters oxygen. He also has oxygen at home. HEENT: He has very slight dry mucous membranes. LUNGS: Clear except for some bilateral coarse breath sounds. He is not tachypneic. HEART: Regular. ABDOMEN: Soft and nontender. EXTREMITIES: No calf pain or lower extremity edema. DIAGNOSTIC DATA: X-ray did show chronic changes and infectious etiology, but it has not changed from prior x-ray. His EKG is unremarkable with sinus rhythm with a rate of 56 and no obvious acute ischemic changes. There are chronic ST changes in mostly the precordial leads. Troponin is unremarkable. Hemoglobin is baseline in the 9s. His chemistries are normal. EMERGENCY DEPARTMENT COURSE AND MEDICAL DECISION MAKING: He is given IV fluids and Zofran. He improved. He appears well. IMPRESSION: Nausea. Chest pain and shortness of breath. COVID-19. DISPOSITION/PLAN: I will discharge him with analgesia and antiemetics. He wants to be discharged, and I think this is quite reasonable. He has home oxygen. If he worsens he is to come back. He is discharged in stable condition.
== END 2021-08-16 23:40 | disposition home or self-care (01) ==
PROVIDERS: Emergency Provider Emergency Medicine; PCP Preventive Medicine Occupational Medicine; Visit Provider Emergency Medicine
DX: R07.9 Chest pain, unspecified (principal); R06.02 Shortness of breath; U07.1 COVID-19
CPT/HCPCS: 71045; 80053; 84484; 85025; 86850; 86870; 86900; 86901; 86902; 86905; 86920; 86922; 93005

== ENCOUNTER 2021-08-18 11:52 | Inpatient (IN) | payer MEDICARE, SELFPAY ==
[2021-08-18] VITALS (8 sets, daily range): BP systolic 98–118; BP diastolic 49–66; PULSE 61–72; RESP 16–18; TEMP 36.2–36.8; O2SAT 93–96; BMI 27.8; BMI 30.9
--- NOTE | 2021-08-18 12:14 | EX.ED.DYSGE1 ---
HPI History of Present Illness Chief Complaint: Complaint Informant: patient Onset/Context/Timing Onset: Days (3) Context: Gradual Onset Timing: Continuous Quality: decreased UOP Current Severity: Severe Maximum Severity: Severe Worsened by: n/a Relieved by: n/a Associated Symptoms Associated Symptoms: increased edema Narrative Narrative: Patient states his creatinines been increasing recently, he has been making very little urine in the past 3 days, he has not felt the need to urinate but when he does, he is able to go but not very much. No hematuria. No abdominal pain although he has some soreness in both sides/flanks. He is on Eliquis for a trip for duration. He was seen here about 5 days ago for atrial fibrillation, admitted to the hospital transiently. He was admitted to [place] for Covid earlier this month and is recovered from that. Denies any dyspnea. [facility] Medical History Anemia Chronic diastolic (congestive) heart failure Essential thrombocytosis Hyperlipidemia Hypothyroidism Leukopenia Myelofibrosis Myeloproliferative neoplasm Neutropenic fever Pancytopenia Paroxysmal atrial fibrillation Paroxysmal atrial tachycardia (04/11/21) Right inguinal hernia Splenomegaly Thrombocytopenia Thyroid disease Home Medications allopurinol 300 mg PO DAILY 02/04/18 [History Last Taken 03/23/18 11:00 300 mg] finasteride 5 mg PO QHS 02/04/18 [History Last Taken 03/22/18 22:00 5 mg] gemfibrozil 600 mg PO DAILY 02/04/18 [History Last Taken 03/23/18 08:00 600 mg] alfuzosin 10 mg PO QHS 04/21/20 [History Last Taken Unknown] fedratinib 200 mg PO DAILY 04/21/20 [History Last Taken 07/30/20] darbepoetin aster in polysorbat 100 mcg/0.5 mL in polysorbate injection syringe 100 mcg SC Q14D 05/15/20 [History Last Taken Unknown] magnesium oxide 500 mg PO DAILY 07/30/20 [History Last Taken Unknown] multivitamin with minerals 1 ea PO DAILY 07/30/20 [History Last Taken Unknown] vitamin E 400 unit PO DAILY 07/30/20 [History Last Taken Unknown] levothyroxine 112 mcg tablet 300 mcg PO DAILY tab 08/13/20 [History Last Taken Unknown] apixaban 5 mg PO BID 08/13/21 [History Last Taken Unknown] fluticasone propionate 1 spray INTRANASAL BID 08/13/21 [History Last Taken Unknown] calcium carbonate 600 mg PO BID #0 tab 08/15/21 [Rx Last Taken Unknown] flecainide 100 mg PO BID 30 Days #60 tab 08/15/21 [Rx Last Taken Unknown] metoprolol succinate 100 mg PO BID 30 Days #60 tab 08/15/21 [Rx Last Taken Unknown] polysaccharide iron complex [Ferrex 150] 150 mg PO DAILYCM 30 Days #30 cap 08/15/21 [Rx Last Taken Unknown] Allergy/AdvReac Type Severity Reaction Status Date / Time pseudoephedrine AdvReac Severe Itching Verified 08/18/21 12:09 [From [facility]] Family History Mother Heart disease Dementia Diabetes Father COPD (chronic obstructive pulmonary disease) Heart disease Sister Cancer uterine Surgical History H/O cardiac catheterization (12/02/17) H/O prostate biopsy H/O right inguinal hernia repair History of bone marrow biopsy History of colonoscopy (2012) History of radiofrequency ablation procedure for cardiac arrhythmia (01/06/21) History of thyroidectomy History of transurethral resection of prostate (07/2020) Social History household members: spouse Smoking Status: Former smoker alcohol intake: never substance use type: does not use ROS ROS ED Constitutional Constitutional ED: Denies chills or fever(s) Eyes Eyes: Denies change in vision or diplopia ENT ENT ED: Denies rhinorrhea or sore throat Cardiovascular Cardiovascular: Reports pedal edema; Denies chest pain or palpitations Respiratory/Chest Respiratory/Chest: Denies cough or dyspnea Gastrointestinal Gastrointestinal: Denies abdominal pain, diarrhea, nausea or vomiting Genitourinary Genitourinary ED: Reports as per HPI and decreased urination; Denies dysuria or hematuria Musculoskeletal Musculoskeletal: Denies back pain or neck pain Integumentary Denies abscess or rash Neurologic Neurologic: Denies headache(s), paresthesias or weakness Psychiatric Psychiatric: Denies anxiety or suicidal thoughts EXAM Physical Exam Const Vital Signs: 08/18/21 11:53 08/18/21 11:54 Temperature 97.1 F L 97.1 F L Temperature Source Temporal Temporal Pulse Rate 61 61 Respiratory Rate 18 18 Blood Pressure 98/49 L 98/49 L Blood Pressure Mean 65 65 Pulse Ox 93 93 Oxygen Delivery Method Room Air Room Air Positive well nourished, well developed and obese General Appearance ED: well developed and NAD Nutritional Appearance: obese HEENT Reports moist mucous membranes normocephalic and atraumatic Eyes PERRL and EOMs intact bilaterally Neck full ROM and supple Resp normal respiratory effort and clear to auscultation bilaterally Cardio regular rate, regular rhythm and no murmurs GI non-tender and non-distended GI Narrative: Edematous lower abdominal wall Auscultation: normoactive bowel sounds Palpation: soft Back/Spine no CVA tenderness General Back: other FROM Extremity normal to inspection General Extremety ED: Yes edema; Negative for pulses abnormal or tenderness General Extremity: edema bilateral lower extremity Details: moderate; Negative for pulses abnormal Neuro oriented x3, CN's II-XII intact bilaterally and no sensory deficits noted Sensorium / Orientation: awake and alert Motor Exam: strength 5/5 throughout Skin no rashes or lesions noted and no wounds MDM MDM MDM Narrative Medical decision making narrative: Bladder scan shows very small amount of urine in the bladder. Labs do show worsening creatinine to the point of being almost 5 at this time with a BUN of 88. Will start him on some slow fluids, his potassium is elevated at 5.9 it is actually lower than it recently was when they checked it a couple days ago, his EKG shows no significant findings of hyperkalemia. Will be to admit. Lab Data Attestation: I reviewed the patient's lab results. Labs: Laboratory Results - last 24 hr 08/18/21 08/18/21 12:30 12:30 WBC 4.2 L RBC 3.43 L Hgb 9.0 L Hct 29.6 L MCV 86.3 MCH 26.2 L MCHC 30.4 L RDW Std Deviation 60.3 H RDW Coeff of Rafael 19.9 H Plt Count 192 MPV 11.3 Immature Gran % (Auto) 1.000 H Neut % (Auto) 83.9 H Lymph % (Auto) 9.8 L [place] % (Auto) 4.6 Eos % (Auto) 0.0 Baso % (Auto) 0.7 Absolute Neuts (auto) 3.5 Absolute Lymphs (auto) 0.41 L Nucleated RBC % 0.5 Sodium 130 L Potassium 5.9 H Chloride 100 Carbon Dioxide 19.0 L Anion Gap 11 BUN 88 H Creatinine 4.76 H Estim Creat Clear Calc 14.17 Est GFR (MDRD) Af Amer 16 L Est GFR (MDRD) Non-Af 13 L BUN/Creatinine Ratio 18.5 Glucose 115 H Calcium 6.0 L* EKG Initial EKG: Attestation: I personally reviewed and interpreted this EKG as follows: Interpretation: Sinus Rhythm, No Acute Injury Pattern, AV Block (1st deg) and Inverted T-Waves (V1-4, III) Prior EKG tracings: available for review (03/2021) Prior: Changed Discharge Plan Dx/Rx/DC Orders Clinical Impression: Acute renal failure, Hyperkalemia, diminished renal excretion, Renal anasarca, Hypocalcemia Disposition [facility]
[2021-08-18 12:58] LABS: Absolute Lymphocyte Count 0.41 X10^3/uL (0.83-4.51); Absolute Neutrophil Count 3.5 X10^3/uL (2.0-7.7); Basophil# 0.03 X10^3/uL; Basophil% 0.7 % (0-1); Hematocrit 29.6 % (40-54); Lymphocyte # 0.41 X10^3/ul (0.83-4.51); Lymphocyte % 9.8 % (19-41); Mean Corp Hgb Conc 30.4 g/dL (32-36); Mean Corpuscular Hgb 26.2 pg (27.0-32.0); Mean Corpuscular Volume 86.3 fL (80-94); Mean Platelet Vol. 11.3 fl (6.2-12.0); Monocyte# 0.19 X10^3/uL; Monocyte% 4.6 % (0-10); NRBC Flagged by Analyzer 0.5 % (0-5); Neutrophil % 83.9 % (47-70); POSITIVE DIFFERENTIAL YES; Platelet Count 192 K/mm3 (150-450); RBC Distribution Width CV 19.9 % (11.6-14.6); RBC Distribution Width SD 60.3 fl (35.1-43.9); Red Blood Count 3.43 M/mm3 (4.6-6.2); White Blood Count 4.2 K/mm3 (4.4-11.0)
[2021-08-18 13:01] LABS: Anion Gap 11 (5-15); BUN 88 mg/dL (7-18); BUN/Creat Ratio 18.5 RATIO (10-20); Chloride 100 mmol/L (98-107); Creatinine, Serum 4.76 mg/dL (0.70-1.30); EST Glomerular Filtration Rate 13 mL/min (>60); Est Glom Filt Rate - Afr Amer 16 mL/min (>60); Estimated Creatinine Clearance 14.17 ml/min; Glucose 115 mg/dL (74-106); Potassium 5.9 mmol/L (3.5-5.1); Sodium Level 130 mmol/L (136-145)
--- NOTE | 2021-08-18 13:01 | EKG12_ITS ---
Test Reason : COMPLAINT Blood Pressure : / mmHG Vent. Rate : 059 BPM Atrial Rate : 059 BPM P-R Int : 316 ms QRS Dur : 132 ms QT Int : 522 ms P-R-T Axes : 073 004 -32 degrees QTc Int : 516 ms Sinus bradycardia with 1st degree A-V block Non-specific intra-ventricular conduction block T wave abnormality, consider inferior ischemia T wave abnormality, consider anterior ischemia Abnormal ECG Confirmed by LEAH CHINCHILLA, RACIEL ([id number]), book editor SUJATHA FERNÁNDEZ ([id number]) on 08/19/2021 8:37:28 AM Referred By: BB Confirmed By:RACIEL LYNN MD
[2021-08-18 13:05] LABS: Differential Indicated SCAN CRITERIA MET
[2021-08-18 13:21] LABS: Anisocytosis 1+; Microcytosis 1+; Ovalocyte 1+; Poikilocytosis 1+
[2021-08-18 13:22] LABS: Tear Drop Cell 1+
[2021-08-18 14:22] LABS: Mucous, Urine 0 SEEN /hpf (<or=2+); Red Blood Cells-Urine 0 SEEN /hpf (0-5); White Blood Cells 0 SEEN /hpf (0-5)
[2021-08-18 14:25] LABS: Color, Urine Yellow (Yellow); Glucose, Dipstick Normal (Normal); Ketone-Dipstick Negative (Negative); Leukocyte Esterase-Dipstick Negative /ul (Negative); Nitrite-Dipstick Negative (Negative); Occult Blood-Urine Negative /ul (Negative); Protein-Dipstick 15 mg/dl (Negative); Specific Gravity, Urine 1.025 (1.002-1.030); Urine Bilirubin Dipstick Negative (Negative); Urine Clarity Clear (Clear); Urine Urobilinogen Normal (Normal)
[2021-08-18 14:36] LABS: Bacteria 1+ /hpf (None Seen); Squamous Epithelial Cells - UA 0-5 SEEN /hpf (0-5)
--- NOTE | 2021-08-18 14:56 | PCM.HP.STD ---
Documented by User: Zulma Villanueva NP, [employer]IST-[employer] 08/18/21 15:15 HPI - General HPI Narrative ALTON BROWN, is a 71 M who presents to the emergency room due to poor urine output. Patient was discharged from the hospital 08/16/2021 following treatment for atrial fibrillation with RVR. He states over the past 2 days he has only urinated once and it was a very small amount. He states his abdomen has felt bloated however he has not felt significant urge to urinate. Denies burning with urination. He does report a history of urinary retention and enlarged prostate with history of TURP/UroLift. Patient reports Wednesday night he had multiple episodes of emesis. He reports ongoing nausea. Denies diarrhea. States he has felt warm however no known fever. Denies other symptoms or complaints. He has a past medical history of atrial fibrillation, chronic pancytopenia, chronic myelofibrosis, hypothyroidism, CAD, hypertension, hyperlipidemia, BPH. [facility] Medical History Anemia Chronic diastolic (congestive) heart failure Essential thrombocytosis Hyperlipidemia Hypothyroidism Leukopenia Myelofibrosis Myeloproliferative neoplasm Neutropenic fever Pancytopenia Paroxysmal atrial fibrillation Paroxysmal atrial tachycardia (04/11/21) Right inguinal hernia Splenomegaly Thrombocytopenia Thyroid disease Home Medications allopurinol 300 mg PO DAILY 02/04/18 [History Last Taken 03/23/18 11:00 300 mg] finasteride 5 mg PO QHS 02/04/18 [History Last Taken 03/22/18 22:00 5 mg] gemfibrozil 600 mg PO DAILY 02/04/18 [History Last Taken 03/23/18 08:00 600 mg] alfuzosin 10 mg PO QHS 04/21/20 [History Last Taken Unknown] fedratinib 200 mg PO DAILY 04/21/20 [History Last Taken 07/30/20] darbepoetin aster in polysorbat 100 mcg/0.5 mL in polysorbate injection syringe 100 mcg SC Q14D 05/15/20 [History Last Taken Unknown] magnesium oxide 500 mg PO DAILY 07/30/20 [History Last Taken Unknown] multivitamin with minerals 1 ea PO DAILY 07/30/20 [History Last Taken Unknown] vitamin E 400 unit PO DAILY 07/30/20 [History Last Taken Unknown] levothyroxine 112 mcg tablet 300 mcg PO DAILY tab 08/13/20 [History Last Taken Unknown] apixaban 5 mg PO BID 08/13/21 [History Last Taken Unknown] fluticasone propionate 1 spray INTRANASAL BID 08/13/21 [History Last Taken Unknown] calcium carbonate 600 mg PO BID #0 tab 08/15/21 [Rx Last Taken Unknown] flecainide 100 mg PO BID 30 Days #60 tab 08/15/21 [Rx Last Taken Unknown] metoprolol succinate 100 mg PO BID 30 Days #60 tab 08/15/21 [Rx Last Taken Unknown] polysaccharide iron complex [Ferrex 150] 150 mg PO DAILYCM 30 Days #30 cap 08/15/21 [Rx Last Taken Unknown] Allergy/AdvReac Type Severity Reaction Status Date / Time pseudoephedrine AdvReac Severe Itching Verified 08/18/21 12:09 [From [facility]] Family History Mother Heart disease Dementia Diabetes Father COPD (chronic obstructive pulmonary disease) Heart disease Sister Cancer uterine Surgical History H/O cardiac catheterization (12/02/17) H/O prostate biopsy H/O right inguinal hernia repair History of bone marrow biopsy History of colonoscopy (2012) History of radiofrequency ablation procedure for cardiac arrhythmia (01/06/21) History of thyroidectomy History of transurethral resection of prostate (07/2020) Social History household members: spouse Smoking Status: Former smoker alcohol intake: never substance use type: does not use ROS Constitutional Constitutional: Reports fatigue; Denies change in weight, chills, fever(s) or weakness Cardiovascular Cardiovascular: Reports lightheadedness; Denies chest pain, edema, palpitations or syncope Respiratory/Chest Respiratory/Chest: Reports dyspnea; Denies cough, productive cough, shortness of breath at rest or wheezing Gastrointestinal Gastrointestinal: Reports nausea and vomiting; Denies abdominal pain, constipation or diarrhea Genitourinary Genitourinary: Reports difficulty urinating; Denies burning urination, dysuria, hematuria, urinary frequency, urinary incontinence or urinary urgency Musculoskeletal Musculoskeletal: Denies back pain, joint pain or muscle weakness Integumentary Integumentary: Denies erythema, lesions, rash or wounds Neurologic Neurologic: Denies abnormal speech, confusion, dizziness, focal weakness, numbness, paresthesias, seizure-like activity or syncope Psychiatric Psychiatric: Denies anxiety or depression Hematologic/Lymphatic Hematologic/Lymphatic: Denies anemia, easy bleeding or easy bruising Allergic/Immunologic Allergic/Immunologic: Denies hives or asthma Vital Signs Vital Signs Vital Signs: 08/18/21 11:53 08/18/21 11:54 08/18/21 14:28 Temperature 97.1 F L 97.1 F L 97.9 F Temperature Source Temporal Temporal Temporal Pulse Rate 61 61 62 Respiratory Rate 18 18 18 Blood Pressure 98/49 L 98/49 L 100/50 L Blood Pressure Mean 65 65 66 Pulse Ox 93 93 96 Oxygen Delivery Method Room Air Room Air Room Air Weight Weight: 183 lb Body Mass Index (BMI) 27.8 Physical Exam Const alert, oriented x3 and no apparent distress Orientation / Consciousness: awake, oriented to person, oriented to place and oriented to time HEENT normocephalic and moist oral mucous membranes Eyes PERRL, EOMs intact bilaterally and conjunctivae normal Neck no lymphadenopathy Resp clear to auscultation bilaterally Auscultation: diminished lung sounds Cardio regular rate, regular rhythm and no murmurs Peripheral Pulses: pulses 2+ throughout GI normal to inspection, nondistended, normoactive bowel sounds and non-tender Extremity normal to inspection General Extremity: edema bilateral lower extremity Details: moderate Skin no rashes or lesions noted Lesions: no lesions Rashes: no rashes Trauma: no lacerations or abrasions Neuro CN's II-XII intact bilaterally, no focal motor deficits, no sensory deficits noted and deep tendon reflexes 2+ bilaterally Psych mental status grossly normal and affect normal Results Lab / Micro Data Result Diagrams: 08/18/21 12:30 08/18/21 12:30 Labs: Laboratory Results - last 24 hr 08/18/21 12:30: WBC 4.2 L, RBC 3.43 L, Hgb 9.0 L, Hct 29.6 L, MCV 86.3, MCH 26.2 L, MCHC 30.4 L, RDW Std Deviation 60.3 H, RDW Coeff of Rafael 19.9 H, Plt Count 192, MPV 11.3, Immature Gran % (Auto) 1.000 H, Neut % (Auto) 83.9 H, Lymph % (Auto) 9.8 L, [place] % (Auto) 4.6, Eos % (Auto) 0.0, Baso % (Auto) 0.7, Absolute Neuts (auto) 3.5, Absolute Lymphs (auto) 0.41 L, Nucleated RBC % 0.5, Diff Path Review May foll, Poikilocytosis 1+, Anisocytosis 1+, Microcytosis 1+, Tear Drop Cells 1+, Ovalocytes 1+ 08/18/21 12:30: Sodium 130 L, Potassium 5.9 H, Chloride 100, Carbon Dioxide 19.0 L, Anion Gap 11, BUN 88 H, Creatinine 4.76 H, Estim Creat Clear Calc 14.17, Est GFR (MDRD) Af Amer 16 L, Est GFR (MDRD) Non-Af 13 L, BUN/Creatinine Ratio 18.5, Glucose 115 H, Calcium 6.0 L* 08/18/21 14:10: Urine Color Yellow, Urine Clarity Clear, Urine pH 5.0, Ur Specific [place] 1.025, Urine Protein 15 H, Urine Glucose (UA) Normal, Urine Ketones Negative, Urine Occult Blood Negative, Urine Nitrite Negative, Urine Bilirubin Negative, Urine Urobilinogen Normal, Ur Leukocyte Esterase Negative, Urine RBC 0 SEEN, Urine WBC 0 SEEN, Ur Squamous Epith Cells 0-5 SEEN, Urine Bacteria 1+, Urine Mucus 0 SEEN Assessment & Plan Assessment/Plan (1) Acute renal failure: PLAN: 1. Acute kidney injury on CKD stage IIIa-patient did receive IV Lasix during recent admission due to mild fluid overload as result of atrial fibrillation with RVR. Patient also reports nausea and vomiting over the weekend. Gentle IV fluids. Check urine studies and renal ultrasound. Trend BMP. Consult nephrology. 2. Hyperkalemia- secondary to #1. IV fluids, repeat labs. 3. Hypocalcemia-replace per protocol. Trend lab. 4. Chronic normocytic anemia/chronic pancytopenia-stable. 5. BPH-history of TURP/UroLift. On finasteride. 6. Recent bilateral pneumonia secondary to COVID-19 with associated hypoxia-patient recently discharged on 4 L nasal cannula. Currently weaned off of O2. Ambulatory pulse ox prior to discharge. Patient is out of isolation and completed treatment. 7. Paroxysmal atrial fibrillation-underwent previous ablation. Amiodarone discontinued during recent admission. Initiated on flecainide and metoprolol. Continue anticoagulation with Eliquis. Previous echocardiogram 04/11/2021 demonstrated an EF of 57%. Will need follow-up with electrophysiology. 8. 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 On fedratinib. Follow-up with oncology. 9. Hypothyroidism-continue Synthroid regimen. Recent thyroid studies normal. 10. CAD-on metoprolol, Eliquis. Nonobstructive. 11. Hypertension-stable, continue metoprolol. 12. Hyperlipidemia-on gemfibrozil. Not on statin. DVT prophylaxis-Eliquis This patient was seen by ALLISON Katz under the supervision of Dr. Carmona. Time spent examining patient, reviewing data and subsequent management of care: 18 Minutes Documented by User: Dr. Laquita Carmona MD 08/18/21 19:20 HPI - General General Date of Admission: 08/18/21 [facility] Medical History Anemia Chronic diastolic (congestive) heart failure Essential thrombocytosis Hyperlipidemia Hypothyroidism Leukopenia Myelofibrosis Myeloproliferative neoplasm Neutropenic fever Pancytopenia Paroxysmal atrial fibrillation Paroxysmal atrial tachycardia (04/11/21) Right inguinal hernia Splenomegaly Thrombocytopenia Thyroid disease Home Medications allopurinol 300 mg PO DAILY 02/04/18 [History Last Taken 03/23/18 11:00 300 mg] finasteride 5 mg PO QHS 02/04/18 [History Last Taken 03/22/18 22:00 5 mg] gemfibrozil 600 mg PO DAILY 02/04/18 [History Last Taken 03/23/18 08:00 600 mg] alfuzosin 10 mg PO QHS 04/21/20 [History Last Taken Unknown] fedratinib 200 mg PO DAILY 04/21/20 [History Last Taken 07/30/20] darbepoetin aster in polysorbat 100 mcg/0.5 mL in polysorbate injection syringe 100 mcg SC Q14D 05/15/20 [History Last Taken Unknown] magnesium oxide 500 mg PO DAILY 07/30/20 [History Last Taken Unknown] multivitamin with minerals 1 ea PO DAILY 07/30/20 [History Last Taken Unknown] vitamin E 400 unit PO DAILY 07/30/20 [History Last Taken Unknown] levothyroxine 112 mcg tablet 300 mcg PO DAILY tab 08/13/20 [History Last Taken Unknown] apixaban 5 mg PO BID 08/13/21 [History Last Taken Unknown] fluticasone propionate 1 spray INTRANASAL BID 08/13/21 [History Last Taken Unknown] calcium carbonate 600 mg PO BID #0 tab 08/15/21 [Rx Last Taken Unknown] flecainide 100 mg PO BID 30 Days #60 tab 08/15/21 [Rx Last Taken Unknown] metoprolol succinate 100 mg PO BID 30 Days #60 tab 08/15/21 [Rx Last Taken Unknown] polysaccharide iron complex [Ferrex 150] 150 mg PO DAILYCM 30 Days #30 cap 08/15/21 [Rx Last Taken Unknown] Allergy/AdvReac Type Severity Reaction Status Date / Time pseudoephedrine AdvReac Severe Itching Verified 08/18/21 12:09 [From [facility]] Family History (Reviewed 08/18/21 @ 15:01 by Zulma Villanueva [employer]IST, [employer]IST-C) Mother Heart disease Dementia Diabetes Father COPD (chronic obstructive pulmonary disease) Heart disease Sister Cancer uterine Surgical History H/O cardiac catheterization (12/02/17) H/O prostate biopsy H/O right inguinal hernia repair History of bone marrow biopsy History of colonoscopy (2012) History of radiofrequency ablation procedure for cardiac arrhythmia (01/06/21) History of thyroidectomy History of transurethral resection of prostate (07/2020) Social History (Reviewed 08/18/21 @ 15:01 by Zulma Villanueva [employer]IST, [employer] SPECIALIST-C) household members: spouse Smoking Status: Former smoker alcohol intake: never substance use type: does not use Results Lab / Micro Data Result Diagrams: 08/18/21 12:30 08/18/21 12:30 Charges/Coding Addendum Addendum: This patient was seen in conjunction with Zulma Villanueva NP. I have independently interviewed and examined the patient and reviewed pertinent historical, laboratory, and other data. I have reviewed her note and concur with her documentation 71-year-old male with multiple comorbidities significant for myeloproliferative neoplasm, who was recently discharged from the hospital 08/16/21 for A. fib with RVR. Patient stated that since his discharge he is urinated only once. His abdomen felt bloated. He admits to history of BPH. He had associated nausea with some episodes of emesis. He denied any diarrhea. He has been drinking water. He denied any objective fever. His vitals in the ED showed temperature 97.1 F, heart rate 61, blood pressure 98/49, respiratory rate was 18, SPO2 was 93% on room air. Physical Exam: Gen: Comfortable, not pale, not jaundiced CVS:HS I +II, regular, no murmurs RESP: Diminished at lung bases GI: BS present and normal, soft, nontender, no palpable organs EXT:No edema Labs: His admitting blood work was significant for WBC count of 4.2, potassium of 5.9, sodium 130, bicarbonate 19, creatinine 4.76, BUN 88 Previous creatinine was 1.5-1.8. There was a discrepancy in his blood work on 08/16/21 with 2 entries 1 at 5 AM and 1 at 7 PM. Patient was discharged in the morning on 08/16/21. ASSESSMENT: 1. CAREY on CKD stage IIIa 2. Hyperkalemia secondary to #1 3. Hyponatremia 4. Hypocalcemia 5. Chronic pancytopenia 6. BPH 7. Recent COVID-19 pneumonia 8. Paroxysmal atrial fibrillation, currently in normal sinus rhythm 8. Myelo proliferative neoplasm/myelofibrosis with chronic pancytopenia 9. Hypothyroidism 10. CAD 11. Hypertension 12. Hyperlipidemia Plan: Admit to PCU, renal ultrasound, urinalysis Nephrology consult Check liver profile Medications are renally dosed Time spent taking patient history, physical examination independently, coordinating patient's care, discussing with plan of care with nephrology and nursing, discussing CODE STATUS: 52 minutes I discussed and explained in details the various types of CODE STATUS-full code, DNR CCA, DNR CC. Patient chose to be full code Time spent discussing CODE STATUS 16 minutes Visit Charges Inpatient E&M: 93379 Init Hosp L3 Procedures Hospitalists Procedures: 59698 Advncd Care Plan 30 Min
--- NOTE | 2021-08-18 15:00 | CASEMGMT ---
ROMÁN CM to room to meet with patient for initial transition planning/care coordination assessment. ROMÁN LANDRY introduced self and role at [facility]. Patient voices understanding and consents to assessment at this time. Patient's Penny Kenney present at bedside. Patient is alert and oriented, lying on ER cart and answers all questions appropriately. Care providers, pharmacy, and demographics verified/updated at this time. Admitting Dx: acute renal failure, hyperkalemia, hypocalcemia PCP: Diogenes Suarez Specialists: Sari- cardiology, Елена- [facility] oncology, Sarai- [facility] cardiology, Sahil- urology Preferred Pharmacy: [facility] Insurance: [facility] Prescription Benefit: yes Living Will/HPOA: Patient reports he completed living and will HPOA with SW here at [facility] on last admission. LNOK: Penny Kenney and daughter Zulma Pena Living Arrangements: Patient lives with in two story house with 2 steps to enter the home with a handrail present. Patient and considering purchasing a stair lift. Patient states independent with ADLs prior to hospitalization. Smoking/ETOH: Former smoker (quit 40 years ago), occasional ETOH use Transportation: Patient drives self and denies transportation concerns. also available for transport needs. DME/HHC/SNF: Patient has a walk-in shower, raised toilet seat, cane, walker and home oxygen through [facility]. Patient reports home oxygen ordered at 2LPM following inpatient hospitalization for COVID approximately 1 month ago. Patient denies previous HHC or SNF stays. Patient was admitted to PCU for atrial fibrillation with RVR from 08/13/21 to 08/16/21. Prior to PCU admission, patient was hospitalized approximately 1 month ago at [place] x 6 days for COVID pneumonia. Patient has no concerns with going home at time of discharge and is now interested in HHC. CM to follow for any discharge planning/needs. Patient voices no concerns/needs at this time. Advised patient to ask for CM if any questions/concerns/needs arise. Voices understanding. Plan: home with HHC
--- NOTE | 2021-08-18 15:34 | US_ITS ---
STUDY: RENAL ULTRASOUND - COMPLETE REASON FOR EXAM: Male, 71 years old. Acute kidney injury superimposed on chronic kidney disease. TECHNIQUE: Ultrasound evaluation of the kidneys was performed with real-time and static maravilla-scale imaging. COMPARISON: None. FINDINGS: RIGHT KIDNEY: Normal location of the right kidney, which is normal in size. The right kidney measures 12.3 cm. Increased renal cortical echogenicity. The renal cortex measures 1.1 cm. There is no right renal mass or cyst. There are no right renal calculi. There is no right hydronephrosis. DISTAL RIGHT URETER: There is non-visualization of the distal right ureter. There is no demonstrated right ureterovesical junction calculus. There is a visualized right ureteral jet. LEFT KIDNEY: Normal location of the left kidney, which is normal in size. The left kidney measures 12.0 cm. Increased renal cortical echogenicity. The renal cortex measures 1.2 cm. There is no left renal mass or cyst. There are no left renal calculi. There is no left hydronephrosis. DISTAL LEFT URETER: There is non-visualization of the distal left ureter. There is no demonstrated left ureterovesical junction calculus. There is a visualized left ureteral jet. BLADDER: The distended urinary bladder has a volume of 292 ml. There is a normal wall thickness of the distended urinary bladder. There is no demonstrated mass within the urinary bladder. There are no demonstrated bladder calculi. An incidental finding is the presence of ascites and probable hepatomegaly. The spleen is enlarged with multiple rounded hyperechoic masses. The largest measures 4 cm in diameter. The prostate is enlarged, measuring 5.1 x 5.0 x 5.6 cm. US/Kidney and Bladder IMPRESSION: 1. Increased renal cortical echogenicity consistent with medical renal disease. The kidneys are otherwise unremarkable. 2. Normal urinary bladder. 3. Hepatosplenomegaly with hyperechoic masses in the spleen. 4. Mild ascites. 5. Enlarged prostate. Electronically Signed: Papo Polk DO at 16:47 EST ,
[2021-08-18 16:51] LABS: Osmolality, Urine 388 mOsm/KG
--- NOTE | 2021-08-18 17:01 | CON.PCM.RE_ITS ---
Assessment & Plan Assessment/Plan (1) Acute renal failure: PLAN: Baseline creatinine seems to be around 1.6 or so. His creatinine was close to baseline as of 28. There were some labs on the but I am not sure if they were accurate because those were downtime labs and it seems the sample was drawn late Wednesday but he left before that time. Acute renal failure within the last 2 days. No clear precipitant. One episode of nausea. Poor intake. Bedside bladder scan x2 did not show significant retention. Renal ultrasound ordered. Urine analysis benign. Urine lites sent. Change fluids to bicarbonate. Hypocalcemia. Check phosphate. History of myelofibrosis. Does not have significant elevation in white count or platelets. Check uric acid. Discussed with at bedside. Discussed with hospitalist. (2) Hyperkalemia, diminished renal excretion: (3) Hypocalcemia: HPI Consult Data Date of Consult: 08/18/21 HPI Narrative HPI Narrative: ALTON BROWN, is a 71 M who presents to the hospital with oliguria. Nephrology consulted for acute renal failure. He was recently admitted to the hospital with atrial fibrillation with RVR. He was taken off am iodarone, switched to Cardizem. He went home on Wednesday. Came back today with lack of urine output for 2 days. Creatinine is significantly higher. No other changes other than above. [facility]LY [facility] Medical History Anemia Chronic diastolic (congestive) heart failure Essential thrombocytosis Hyperlipidemia Hypothyroidism Leukopenia Myelofibrosis Myeloproliferative neoplasm Neutropenic fever Pancytopenia Paroxysmal atrial fibrillation Paroxysmal atrial tachycardia (04/11/21) Right inguinal hernia Splenomegaly Thrombocytopenia Thyroid disease Home Medications allopurinol 300 mg PO DAILY 02/04/18 [History Last Taken 03/23/18 11:00 300 mg] finasteride 5 mg PO QHS 02/04/18 [History Last Taken 03/22/18 22:00 5 mg] gemfibrozil 600 mg PO DAILY 02/04/18 [History Last Taken 03/23/18 08:00 600 mg] alfuzosin 10 mg PO QHS 04/21/20 [History Last Taken Unknown] fedratinib 200 mg PO DAILY 04/21/20 [History Last Taken 07/30/20] darbepoetin aster in polysorbat 100 mcg/0.5 mL in polysorbate injection syringe 100 mcg SC Q14D 05/15/20 [History Last Taken Unknown] magnesium oxide 500 mg PO DAILY 07/30/20 [History Last Taken Unknown] multivitamin with minerals 1 ea PO DAILY 07/30/20 [History Last Taken Unknown] vitamin E 400 unit PO DAILY 07/30/20 [History Last Taken Unknown] levothyroxine 112 mcg tablet 300 mcg PO DAILY tab 08/13/20 [History Last Taken Unknown] apixaban 5 mg PO BID 08/13/21 [History Last Taken Unknown] fluticasone propionate 1 spray INTRANASAL BID 08/13/21 [History Last Taken Unknown] calcium carbonate 600 mg PO BID #0 tab 08/15/21 [Rx Last Taken Unknown] flecainide 100 mg PO BID 30 Days #60 tab 08/15/21 [Rx Last Taken Unknown] metoprolol succinate 100 mg PO BID 30 Days #60 tab 08/15/21 [Rx Last Taken Unknown] polysaccharide iron complex [Ferrex 150] 150 mg PO DAILYCM 30 Days #30 cap 08/15/21 [Rx Last Taken Unknown] Allergy/AdvReac Type Severity Reaction Status Date / Time pseudoephedrine AdvReac Severe Itching Verified 08/18/21 12:09 [From [facility]] Family History (Reviewed 08/18/21 @ 15:01 by Zulma Villanueva MACHINE FEEDER RAW STOCK, MACHINE FEEDER RAW STOCK-C) Mother Heart disease Dementia Diabetes Father COPD (chronic obstructive pulmonary disease) Heart disease Sister Cancer uterine Surgical History H/O cardiac catheterization (12/02/17) H/O prostate biopsy H/O right inguinal hernia repair History of bone marrow biopsy History of colonoscopy (2012) History of radiofrequency ablation procedure for cardiac arrhythmia (01/06/21) History of thyroidectomy History of transurethral resection of prostate (07/2020) Social History (Reviewed 08/18/21 @ 15:01 by Zulma Villanueva MACHINE FEEDER RAW STOCK, MACHINE FEEDER RAW STOCK-C) household members: spouse Smoking Status: Former smoker alcohol intake: never substance use type: does not use Physical Exam Narrative Alert awake oriented x 3 no obvious distress no pallor no icterus no JVD s1s2 no murmurs lungs clear abdomen soft no organomegaly no edema no cyanosis Lab / Micro Data Result Diagrams: 08/18/21 12:30 08/18/21 12:30 Labs: Laboratory Results - last 24 hr 08/18/21 12:30: WBC 4.2 L, RBC 3.43 L, Hgb 9.0 L, Hct 29.6 L, MCV 86.3, MCH 26.2 L, MCHC 30.4 L, RDW Std Deviation 60.3 H, RDW Coeff of Rafael 19.9 H, Plt Count 192, MPV 11.3, Immature Gran % (Auto) 1.000 H, Neut % (Auto) 83.9 H, Lymph % (Auto) 9.8 L, [place] % (Auto) 4.6, Eos % (Auto) 0.0, Baso % (Auto) 0.7, Absolute Neuts (auto) 3.5, Absolute Lymphs (auto) 0.41 L, Nucleated RBC % 0.5, Diff Path Review May foll, Poikilocytosis 1+, Anisocytosis 1+, Microcytosis 1+, Tear Drop Cells 1+, Ovalocytes 1+ 08/18/21 12:30: Sodium 130 L, Potassium 5.9 H, Chloride 100, Carbon Dioxide 19.0 L, Anion Gap 11, BUN 88 H, Creatinine 4.76 H, Estim Creat Clear Calc 14.17, Est GFR (MDRD) Af Amer 16 L, Est GFR (MDRD) Non-Af 13 L, BUN/Creatinine Ratio 18.5, Glucose 115 H, Calcium 6.0 L* 08/18/21 14:10: Urine Color Yellow, Urine Clarity Clear, Urine pH 5.0, Ur Specific [place] 1.025, Urine Protein 15 H, Urine Glucose (UA) Normal, Urine Ketones Negative, Urine Occult Blood Negative, Urine Nitrite Negative, Urine Bilirubin Negative, Urine Urobilinogen Normal, Ur Leukocyte Esterase Negative, Urine RBC 0 SEEN, Urine WBC 0 SEEN, Ur Squamous Epith Cells 0-5 SEEN, Urine Bacteria 1+, Urine Mucus 0 SEEN 08/18/21 15:55: Urine Osmolality 388 08/18/21 15:55: Urine Creatinine 97.50 Radiology Impression Renal Ultrasound 08/18/21 15:34 IMPRESSION: 1. Increased renal cortical echogenicity consistent with medical renal disease. The kidneys are otherwise unremarkable. 2. Normal urinary bladder. 3. Hepatosplenomegaly with hyperechoic masses in the spleen. 4. Mild ascites. 5. Enlarged prostate. Electronically Signed: Papo Polk DO at 16:47 EST ,
[2021-08-18 17:03] LABS: Protein, Urine (Random) 25.4 mg/dL (<11.9); Protein:Creat Ratio 256 mg/g CRE (0-200); Urine Sodium 38 mmol/L (Not Establ.)
--- NOTE | 2021-08-18 17:21 | PCS.PANDOC ---
PANDEMIC DOCUMENTATION INITIATED: Date: 03/03/2021 Time: 190
[2021-08-18 20:34] LABS: AST(SGOT) 84 U/L (15-37); Alanine Aminotransfer ALT/SGPT 194 U/L (16-61); Alkaline Phosphatase 59 U/L (45-117); Bilirubin, Direct 0.17 mg/dL (0.00-0.30)
[2021-08-18] MEDS: APIXABAN 5 MG TABLET PO (21:07)
[2021-08-18] MEDS: Calcium Carbonate 500 MG Tablet PO (21:07)
[2021-08-18] MEDS: Metoprolol(XL)Succ 100 MG Tablet PO (21:07)
[2021-08-18] MEDS: Tamsulosin HCl 0.4 MG Capsule PO (21:08)
[2021-08-18] MEDS: Finasteride 5 MG Tablet PO (21:08)
[2021-08-18] MEDS: Fluticasone 0.05% 1 SPRAY NASAL.SRY NASAL (21:09)
[2021-08-19] VITALS (11 sets, daily range): BP systolic 97–114; BP diastolic 63–75; PULSE 81–107; RESP 16; TEMP 36.5–36.8; O2SAT 93
[2021-08-19] MEDS: Lidocaine 5% Patch 1 PATCH TOPICAL (04:42)
[2021-08-19 05:02] LABS: Absolute Lymphocyte Count 0.45 X10^3/uL (0.83-4.51); Absolute Neutrophil Count 2.5 X10^3/uL (2.0-7.7); Basophil# 0.03 X10^3/uL; Basophil% 0.9 % (0-1); Eosinophil# 0.02 X10^3/uL; Eosinophils% 0.6 % (0-5); Hematocrit 24.5 % (40-54); Hemoglobin 7.8 g/dL (13.0-16.5); Lymphocyte # 0.45 X10^3/ul (0.83-4.51); Mean Corp Hgb Conc 31.8 g/dL (32-36); Mean Corpuscular Hgb 27.2 pg (27.0-32.0); Mean Corpuscular Volume 85.4 fL (80-94); Mean Platelet Vol. 12.1 fl (6.2-12.0); Monocyte# 0.19 X10^3/uL; Monocyte% 5.9 % (0-10); NRBC Flagged by Analyzer 0.9 % (0-5); Neutrophil # 2.47 X10^3/uL (2.7-7.7); POSITIVE DIFFERENTIAL YES; Platelet Count 205 K/mm3 (150-450); RBC Distribution Width CV 19.9 % (11.6-14.6); RBC Distribution Width SD 59.3 fl (35.1-43.9); Red Blood Count 2.87 M/mm3 (4.6-6.2); White Blood Count 3.2 K/mm3 (4.4-11.0)
[2021-08-19 05:07] LABS: Differential Indicated SCAN CRITERIA MET
[2021-08-19 05:36] LABS: AST(SGOT) 57 U/L (15-37); Alanine Aminotransfer ALT/SGPT 157 U/L (16-61); Albumin, Serum 2.9 g/dL (3.2-5.0); Alkaline Phosphatase 56 U/L (45-117); Anion Gap 11 (5-15); BUN 85 mg/dL (7-18); BUN/Creat Ratio 20.3 RATIO (10-20); Calcium,Total 6.3 mg/dL (8.5-10.1); Chloride 99 mmol/L (98-107); Creatinine, Serum 4.19 mg/dL (0.70-1.30); EST Glomerular Filtration Rate 15 mL/min (>60); Est Glom Filt Rate - Afr Amer 18 mL/min (>60); Glucose 105 mg/dL (74-106); Potassium 4.9 mmol/L (3.5-5.1); Protein, Total 5.9 g/dL (6.4-8.2); Sodium Level 130 mmol/L (136-145); Uric Acid 9.8 mg/dL (3.5-7.2)
[2021-08-19 05:37] LABS: Anisocytosis 1+; Differential Comment SCANNED; Microcytosis 1+
[2021-08-19 05:38] LABS: Ovalocyte RARE
[2021-08-19 05:41] LABS: Phosphorus 6.4 mg/dL (2.5-4.9)
[2021-08-19] MEDS: Levothyroxine 150 MCG Tablet 300 MCG PO (05:55)
--- NOTE | 2021-08-19 07:47 | EKG12_ITS ---
Test Reason : ARRYTHMIA Blood Pressure : / mmHG Vent. Rate : 103 BPM Atrial Rate : 101 BPM P-R Int : 000 ms QRS Dur : 120 ms QT Int : 392 ms P-R-T Axes : 000 -02 266 degrees QTc Int : 513 ms Junctional rhythm Incomplete right bundle branch block ST & T wave abnormality, consider inferior ischemia ST & T wave abnormality, consider anterolateral ischemia Abnormal ECG Confirmed by LEAH CHINCHILLA, RACIEL ([id number]), newspaper managing editor SUJATHA FERNÁNDEZ ([id number]) on 08/22/2021 8:45:16 AM Referred By: TRAMAINE Confirmed By:RACIEL LYNN MD
[2021-08-19 09:17] LABS: Magnesium 2.3 mg/dL (1.6-2.6)
[2021-08-19] MEDS: Flecainide 100 MG Tablet PO (09:20)
[2021-08-19] MEDS: Fluticasone 0.05% 1 SPRAY NASAL.SRY NASAL ×2 (09:21→21:41)
[2021-08-19] MEDS: Iron Polysaccharide Complex 150 MG CAPSULE PO (09:21)
[2021-08-19] MEDS: Gemfibrozil 600 MG Tablet PO (09:21)
[2021-08-19] MEDS: Magnesium Chloride 64 MG Delay Rel.Tablet 128 MG PO (09:21)
[2021-08-19] MEDS: APIXABAN 5 MG TABLET PO ×2 (09:21→21:42)
--- NOTE | 2021-08-19 11:58 | PN.RENAL_ITS ---
Subjective Subjective Feels better. Urine output is improved. Lower extremity edema is about the same. Appetite is fair. Objective Data Objective Data Vital Signs: Vital Signs Temp Pulse Resp BP Pulse Ox 98.1 F 94 16 99/67 93 08/19/21 09:00 08/19/21 10:59 08/19/21 09:00 08/19/21 09:20 08/19/21 09:00 Oxygen Delivery Method Room Air Weight: 93 kg Body Mass Index (BMI) 30.9 Intake & Output: Intake and Output for Last 24 Hours 08/17/21 08/18/21 08/19/21 23:59 23:59 23:59 Intake Total 1999 Output Total 75 / 525 1075 / 1075 Balance -75 / -225 925 / 925 Lab / Micro Data Result Diagrams: 08/19/21 04:49 08/19/21 04:49 Labs: Laboratory Results - last 24 hr 08/18/21 12:30: WBC 4.2 L, RBC 3.43 L, Hgb 9.0 L, Hct 29.6 L, MCV 86.3, MCH 26.2 L, MCHC 30.4 L, RDW Std Deviation 60.3 H, RDW Coeff of Rafael 19.9 H, Plt Count 192, MPV 11.3, Immature Gran % (Auto) 1.000 H, Neut % (Auto) 83.9 H, Lymph % (Auto) 9.8 L, [place] % (Auto) 4.6, Eos % (Auto) 0.0, Baso % (Auto) 0.7, Absolute Neuts (auto) 3.5, Absolute Lymphs (auto) 0.41 L, Nucleated RBC % 0.5, Diff Path Review May foll, Poikilocytosis 1+, Anisocytosis 1+, Microcytosis 1+, Tear Drop Cells 1+, Ovalocytes 1+ 08/18/21 12:30: Sodium 130 L, Potassium 5.9 H, Chloride 100, Carbon Dioxide 19.0 L, Anion Gap 11, BUN 88 H, Creatinine 4.76 H, Estim Creat Clear Calc 14.17, Est GFR (MDRD) Af Amer 16 L, Est GFR (MDRD) Non-Af 13 L, BUN/Creatinine Ratio 18.5, Glucose 115 H, Calcium 6.0 L* 08/18/21 12:30: Total Bilirubin 0.30, Direct Bilirubin 0.17, AST 84 H, ALT 194 H , Alkaline Phosphatase 59, Total Protein 6.0 L, Albumin 3.0 L, Globulin 3.0 08/18/21 14:10: Urine Color Yellow, Urine Clarity Clear, Urine pH 5.0, Ur Specific [place] 1.025, Urine Protein 15 H, Urine Glucose (UA) Normal, Urine Ketones Negative, Urine Occult Blood Negative, Urine Nitrite Negative, Urine Bilirubin Negative, Urine Urobilinogen Normal, Ur Leukocyte Esterase Negative, Urine RBC 0 SEEN, Urine WBC 0 SEEN, Ur Squamous Epith Cells 0-5 SEEN, Urine Bacteria 1+, Urine Mucus 0 SEEN 08/18/21 15:55: Urine Osmolality 388, U Random Total Protein 25.4 H, Ur Random Sodium 38, Urine Creatinine 99.10, Protein/Creatinin Ratio 256 H 08/18/21 15:55: Urine Creatinine 97.50 08/19/21 04:49: WBC 3.2 L, RBC 2.87 L, Hgb 7.8 L, Hct 24.5 L, MCV 85.4, MCH 27.2, MCHC 31.8 L, RDW Std Deviation 59.3 H, RDW Coeff of Rafael 19.9 H, Plt Count 205, MPV 12.1 H, Immature Gran % (Auto) 1.600 H, Neut % (Auto) 77.0 H, Lymph % (Auto) 14.0 L, [place] % (Auto) 5.9, Eos % (Auto) 0.6, Baso % (Auto) 0.9, Absolute Neuts (auto) 2.5, Absolute Lymphs (auto) 0.45 L, Nucleated RBC % 0.9, D ifferential Comment SCANNED, Diff Path Review November foll, Anisocytosis 1+, Microcytosis 1+, Ovalocytes RARE 08/19/21 04:49: Sodium 130 L, Potassium 4.9, Chloride 99, Carbon Dioxide 20.0 L, Anion Gap 11, BUN 85 H, Creatinine 4.19 H, Estim Creat Clear Calc 16.10, Est GFR (MDRD) Af Amer 18 L, Est GFR (MDRD) Non-Af 15 L, BUN/Creatinine Ratio 20.3 H, Glucose 105, Uric Acid 9.8 H, Calcium 6.3 L*, Total Bilirubin 0.30, AST 57 H, ALT 157 H, Alkaline Phosphatase 56, Total Protein 5.9 L, Albumin 2.9 L, Globulin 3.0, Albumin/Globulin Ratio 1.0 08/19/21 04:49: Phosphorus 6.4 H 08/19/21 04:49: Magnesium 2.3 Radiography Diagnostic Testing: Radiology Impression Renal Ultrasound 08/18/21 15:34 IMPRESSION: 1. Increased renal cortical echogenicity consistent with medical renal disease. The kidneys are otherwise unremarkable. 2. Normal urinary bladder. 3. Hepatosplenomegaly with hyperechoic masses in the spleen. 4. Mild ascites. 5. Enlarged prostate. Electronically Signed: Papo Polk, DO at 16:47 EST Reading Location ID and State: [address] [place] [address] Tel [phone], Service support , Physical Exam Narrative Alert awake oriented x 3 no obvious distress no pallor no icterus no JVD s1s2 no murmurs lungs clear abdomen soft no organomegaly + edema no cyanosis Assessment & Plan Assessment/Plan (1) Acute renal failure: PLAN: Baseline creatinine seems to be around 1.6 or so. His creatinine was close to baseline as of 28. There were some labs on the but I am not sure if they were accurate because those were downtime labs and it seems the sample was drawn late Wednesday but he left before that time. Acute renal failure within the last 2 days. No clear precipitant. One episode of nausea. Poor intake. Bedside bladder scan x2 did not show significant retention. Renal ultrasound is ok. Urine analysis benign. FeNa 1.4. ? ischemic ATN. 1 more NS today and then stop Hypocalcemia. due to hyperphosphatemia. may add binders if phos remains high tomorrow History of myelofibrosis. Does not have significant elevation in white count or platelets. uric acid is not impressive for TLS Hyperkalemia. Better Discussed with hospitalist. (2) Hyperkalemia, diminished renal excretion: (3) Hypocalcemia:
--- NOTE | 2021-08-19 12:23 | PCM.PN.HOSP ---
Documented by User: Zulma Villanueva NP, NURSE HEAD-C 08/19/21 12:31 Subjective Subjective Patient seen and examined. Denies worsening shortness of breath. Oxygen remained stable on room air. Denies nausea, vomiting. Objective Data Objective Data Vital Signs: Vital Signs Temp Pulse Resp BP Pulse Ox 98.1 F 94 16 99/67 93 08/19/21 09:00 08/19/21 10:59 08/19/21 09:00 08/19/21 09:20 08/19/21 09:00 Oxygen Delivery Method Room Air Weight: 205 lb 0.478 oz Body Mass Index (BMI) 30.9 Intake & Output: Intake and Output for Last 24 Hours 08/17/21 08/18/21 08/19/21 23:59 23:59 23:59 Intake Total 1999 Output Total 75 / 525 1075 / 1075 Balance -75 / -225 925 / 925 Lab / Micro Data Result Diagrams: 08/19/21 04:49 08/19/21 04:49 Labs: Laboratory Results - last 24 hr 08/18/21 12:30: WBC 4.2 L, RBC 3.43 L, Hgb 9.0 L, Hct 29.6 L, MCV 86.3, MCH 26.2 L, MCHC 30.4 L, RDW Std Deviation 60.3 H, RDW Coeff of Rafael 19.9 H, Plt Count 192, MPV 11.3, Immature Gran % (Auto) 1.000 H, Neut % (Auto) 83.9 H, Lymph % (Auto) 9.8 L, [place] % (Auto) 4.6, Eos % (Auto) 0.0, Baso % (Auto) 0.7, Absolute Neuts (auto) 3.5, Absolute Lymphs (auto) 0.41 L, Nucleated RBC % 0.5, Diff Path Review May foll, Poikilocytosis 1+, Anisocytosis 1+, Microcytosis 1+, Tear Drop Cells 1+, Ovalocytes 1+ 08/18/21 12:30: Sodium 130 L, Potassium 5.9 H, Chloride 100, Carbon Dioxide 19.0 L, Anion Gap 11, BUN 88 H, Creatinine 4.76 H, Estim Creat Clear Calc 14.17, Est GFR (MDRD) Af Amer 16 L, Est GFR (MDRD) Non-Af 13 L, BUN/Creatinine Ratio 18.5, Glucose 115 H, Calcium 6.0 L* 08/18/21 12:30: Total Bilirubin 0.30, Direct Bilirubin 0.17, AST 84 H, ALT 194 H, Alkaline Phosphatase 59, Total Protein 6.0 L, Albumin 3.0 L, Globulin 3.0 08/18/21 14:10: Urine Color Yellow, Urine Clarity Clear, Urine pH 5.0, Ur Specific [place] 1.025, Urine Protein 15 H, Urine Glucose (UA) Normal, Urine Ketones Negative, Urine Occult Blood Negative, Urine Nitrite Negative, Urine Bilirubin Negative, Urine Urobilinogen Normal, Ur Leukocyte Esterase Negative, Urine RBC 0 SEEN, Urine WBC 0 SEEN, Ur Squamous Epith Cells 0-5 SEEN, Urine Bacteria 1+, Urine Mucus 0 SEEN 08/18/21 15:55: Urine Osmolality 388, U Random Total Protein 25.4 H, Ur Random Sodium 38, Urine Creatinine 99.10, Protein/Creatinin Ratio 256 H 08/18/21 15:55: Urine Creatinine 97.50 08/19/21 04:49: WBC 3.2 L, RBC 2.87 L, Hgb 7.8 L, Hct 24.5 L, MCV 85.4, MCH 27.2, MCHC 31.8 L, RDW Std Deviation 59.3 H, RDW Coeff of Rafael 19.9 H, Plt Count 205, MPV 12.1 H, Immature Gran % (Auto) 1.600 H, Neut % (Auto) 77.0 H, Lymph % (Auto) 14.0 L, [place] % (Auto) 5.9, Eos % (Auto) 0.6, Baso % (Auto) 0.9, Absolute Neuts (auto) 2.5, Absolute Lymphs (auto) 0.45 L, Nucleated RBC % 0.9, Differential Comment SCANNED, Diff Path Review May foll, Anisocytosis 1+, Microcytosis 1+, Ovalocytes RARE 08/19/21 04:49: Sodium 130 L, Potassium 4.9, Chloride 99, Carbon Dioxide 20.0 L, Anion Gap 11, BUN 85 H, Creatinine 4.19 H, Estim Creat Clear Calc 16.10, Est GFR (MDRD) Af Amer 18 L, Est GFR (MDRD) Non-Af 15 L, BUN/Creatinine Ratio 20.3 H, Glucose 105, Uric Acid 9.8 H, Calcium 6.3 L*, Total Bilirubin 0.30, AST 57 H, ALT 157 H, Alkaline Phosphatase 56, Total Protein 5.9 L, Albumin 2.9 L, Globulin 3.0, Albumin/Globulin Ratio 1.0 08/19/21 04:49: Phosphorus 6.4 H 08/19/21 04:49: Magnesium 2.3 Radiography Diagnostic Testing: Radiology Impression Renal Ultrasound 08/18/21 15:34 IMPRESSION: 1. Increased renal cortical echogenicity consistent with medical renal disease. The kidneys are otherwise unremarkable. 2. Normal urinary bladder. 3. Hepatosplenomegaly with hyperechoic masses in the spleen. 4. Mild ascites. 5. Enlarged prostate. Electronically Signed: Papo Polk DO at 16:47 EST Reading Location ID and State: [address] [place] [address] Tel [phone], Service support , Physical Exam Const alert, oriented x3 and no apparent distress Orientation / Consciousness: awake, oriented to person, oriented to place and oriented to time HEENT normocephalic and moist oral mucous membranes Eyes PERRL, EOMs intact bilaterally and conjunctivae normal Neck no lymphadenopathy Resp clear to auscultation bilaterally Auscultation: diminished lung sounds Cardio regular rate, regular rhythm and no murmurs Peripheral Pulses: pulses 2+ throughout GI normal to inspection, nondistended, normoactive bowel sounds, non-tender and non-distended Extremity normal to inspection General Extremity: edema bilateral lower extremity Details: moderate Skin no rashes or lesions noted Lesions: no lesions Rashes: no rashes Trauma: no lacerations or abrasions Neuro CN's II-XII intact bilaterally, no focal motor deficits, no sensory deficits noted and deep tendon reflexes 2+ bilaterally Psych mental status grossly normal and affect normal Assessment & Plan Assessment/Plan (1) Acute renal failure: PLAN: 1. Acute kidney injury on CKD stage IIIa-nephrology following. IV fluids. Renal ultrasound unremarkable. FENa 1.4. No evidence of retention. Trend BMP. Hold nephrotoxic regimen. 2. Hyperkalemia-secondary to #1. Resolved, trend BMP. 3. Hypocalcemia-secondary to hyperphosphatemia. Management per nephrology. Trend labs. 4. Chronic normocytic anemia/chronic pancytopenia-stable. 5. BPH-history of TURP/UroLift. On finasteride. 6. Recent bilateral pneumonia secondary to COVID-19 with associated hypoxia-patient recently discharged on 4 L nasal cannula. Currently weaned off of O2. Ambulatory pulse ox prior to discharge. Patient is out of isolation and completed treatment. 7. Paroxysmal atrial fibrillation-underwent previous ablation. Amiodarone discontinued during recent admission. Initiated on flecainide and metoprolol. Continue anticoagulation with Eliquis. Previous echocardiogram 04/11/2021 demonstrated an EF of 57%. Will need follow-up with electrophysiology. 8. 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 On fedratinib. Follow-up with oncology. 9. Hypothyroidism-continue Synthroid regimen. Recent thyroid studies normal. 10. CAD-on metoprolol, Eliquis. Nonobstructive. 11. Hypertension-stable, continue metoprolol. 12. Hyperlipidemia-on gemfibrozil. Not on statin. DVT prophylaxis-Eliquis This patient was seen by ALLISON Katz under the supervision of Dr. Louis. Time spent examining patient, reviewing data and subsequent management of care: 13 Minutes Documented by User: Dr. Santosh Louis DO 08/19/21 15:26 Subjective Subjective Feels well. Objective Data Lab / Micro Data Result Diagrams: 08/19/21 04:49 08/19/21 04:49 Physical Exam Const alert and no apparent distress Resp normal respiratory effort, no retractions, no use of accessory muscles and clear to auscultation bilaterally Cardio regular rate, regular rhythm, S1 normal heart sound and S2 normal heart sound GI normal to inspection, nondistended, normoactive bowel sounds, soft to palpation, non-tender and non-distended Extremity normal to inspection General Extremity: edema Assessment & Plan Assessment/Plan (1) Acute renal failure: (2) Hyperkalemia, diminished renal excretion: (3) Hypocalcemia: PLAN: Patient seen and examined independently. Data and vitals reviewed. I agree with the above note by the nurse practitioner. 1. Acute kidney injury Baseline creatinine around 1.6 Creatinine on admission was 4.76 but down to 4.19 today. Was trending upwards upon discharge on the , however. On IV fluids Nephrology following 2. Hyperkalemia Secondary to CAREY Resolved 3. Hypokalemia Corrected calcium is still low Due to hyperphosphatemia Nephrology to consider binders if phosphorus remains high 4. History of myelofibrosis and myeloproliferative neoplasm Uric acid slightly elevated. But not concerning for tumor lysis syndrome 5. VTE prophylaxis: Not indicated patient is already on apixaban. Charges/Coding Visit Charges Inpatient E&M: 68997 Subs Hosp L2
[2021-08-19] MEDS: 0.9% Normal Saline 1,000 ML 75 ML IV (12:25)
[2021-08-19] MEDS: Calcium Carbonate 500 MG Tablet PO ×2 (12:26→21:41)
--- NOTE | 2021-08-19 15:21 | CHAPLAIN ---
Type of Pastoral Visit _x__ Initial Visit ___ Follow-up Visit ___ On-call Visit ___ General Patient Visit ___ Spiritual Assessment ___ Family Conference ___ Bereavement ___ Rapid Response ___ Code Blue ___ Other (describe below) Pastoral Care Referral From _x__ Patient ___ Family ___ Nurse ___ Physician ___ Senior [employer] Consultant ___ [employer] ___ Other (describe below) Sacrament/Intervention _x__ Active listening ___ Anointing ___ Orthodoxy ___ Bereavement ___ Communion _x__ Joy exploration ___ _x__ Life review _x__ Prayer ___ Reconciliation ___ Sacrament of Sick ___ Supportive presence ___ Wedding ___ Other (describe below) Pastoral Comments patient identifies as a Orthodoxy and talks freely about his joy and how it helps him in life; pt is feeling better now and is thankful for the visit and prayer
[2021-08-19] MEDS: Finasteride 5 MG Tablet PO (21:42)
[2021-08-19] MEDS: Tamsulosin HCl 0.4 MG Capsule PO (21:42)
[2021-08-19] MEDS: Metoprolol(XL)Succ 100 MG Tablet PO (21:43)
[2021-08-20] VITALS (9 sets, daily range): BP systolic 102–114; BP diastolic 67–68; PULSE 85–92; RESP 16–18; TEMP 36.3–36.6; O2SAT 89–97
[2021-08-20] MEDS: 0.9% Normal Saline 1,000 ML 75 ML IV (00:44)
[2021-08-20] MEDS: Lidocaine 5% Patch 1 PATCH TOPICAL (01:07)
[2021-08-20 05:27] LABS: Absolute Lymphocyte Count 0.69 X10^3/uL (0.83-4.51); Absolute Neutrophil Count 3.2 X10^3/uL (2.0-7.7); Basophil# 0.03 X10^3/uL; Basophil% 0.7 % (0-1); Eosinophil# 0.05 X10^3/uL; Eosinophils% 1.2 % (0-5); Hematocrit 27.7 % (40-54); Hemoglobin 8.5 g/dL (13.0-16.5); Lymphocyte # 0.69 X10^3/ul (0.83-4.51); Lymphocyte % 15.9 % (19-41); Mean Corp Hgb Conc 30.7 g/dL (32-36); Mean Corpuscular Hgb 26.4 pg (27.0-32.0); Mean Platelet Vol. 10.6 fl (6.2-12.0); Monocyte% 6.9 % (0-10); NRBC Flagged by Analyzer 0.9 % (0-5); Neutrophil # 3.23 X10^3/uL (2.7-7.7); Neutrophil % 74.4 % (47-70); POSITIVE MORPHOLOGY YES; Platelet Count 243 K/mm3 (150-450); RBC Distribution Width CV 20.9 % (11.6-14.6); RBC Distribution Width SD 62.7 fl (35.1-43.9); Red Blood Count 3.22 M/mm3 (4.6-6.2); White Blood Count 4.3 K/mm3 (4.4-11.0)
[2021-08-20 05:31] LABS: Differential Indicated SCAN CRITERIA MET
[2021-08-20 05:59] LABS: AST(SGOT) 45 U/L (15-37); Alanine Aminotransfer ALT/SGPT 129 U/L (16-61); Albumin, Serum 2.9 g/dL (3.2-5.0); Alkaline Phosphatase 55 U/L (45-117); Anion Gap 8 (5-15); Anisocytosis 1+; BUN 75 mg/dL (7-18); BUN/Creat Ratio 21.8 RATIO (10-20); Calcium,Total 6.1 mg/dL (8.5-10.1); Chloride 103 mmol/L (98-107); Creatinine, Serum 3.44 mg/dL (0.70-1.30); Differential Comment SCANNED; EST Glomerular Filtration Rate 19 mL/min (>60); Est Glom Filt Rate - Afr Amer 23 mL/min (>60); Estimated Creatinine Clearance 19.61 ml/min; Glucose 98 mg/dL (74-106); Macrocytosis RARE; Microcytosis 1+; Ovalocyte RARE; Potassium 4.5 mmol/L (3.5-5.1); Protein, Total 5.9 g/dL (6.4-8.2); Sodium Level 133 mmol/L (136-145)
[2021-08-20] MEDS: Levothyroxine 150 MCG Tablet 300 MCG PO (06:21)
[2021-08-20] MEDS: Calcium Carbonate 500 MG Tablet PO (06:21)
--- NOTE | 2021-08-20 09:16 | PCM.PN.REN ---
Subjective Subjective No new complaints Objective Data Objective Data Vital Signs: Vital Signs Temp Pulse Resp BP Pulse Ox 97.7 F L 89 18 108/67 94 08/20/21 06:35 08/20/21 08:45 08/20/21 08:45 08/20/21 06:35 08/20/21 06:35 Oxygen Delivery Method Room Air Weight: 94.1 kg Body Mass Index (BMI) 30.9 Intake & Output: Intake and Output for Last 24 Hours 08/18/21 08/19/21 08/20/21 23:59 23:59 23:59 Intake Total 3150 / 3550 1623.75 / 1623.75 Output Total 75 / 525 2075 / 2075 500 / 500 Balance -75 / -225 1075 / 1475 1123.75 / 1123.75 Lab / Micro Data Result Diagrams: 08/20/21 05:19 08/20/21 05:19 Labs: Laboratory Results - last 24 hr 08/19/21 04:49: Magnesium 2.3 08/20/21 05:19: WBC 4.3 L, RBC 3.22 L, Hgb 8.5 L, Hct 27.7 L, MCV 86.0, MCH 26.4 L, MCHC 30.7 L, RDW Std Deviation 62.7 H, RDW Coeff of Rafael 20.9 H, Plt Count 243, MPV 10.6, Immature Gran % (Auto) 0.900, Neut % (Auto) 74.4 H, Lymph % (Auto) 15.9 L, [place] % (Auto) 6.9, Eos % (Auto) 1.2, Baso % (Auto) 0.7, Absolute Neuts (auto) 3.2, Absolute Lymphs (auto) 0.69 L, Nucleated RBC % 0.9, Differential Comment SCANNED, Anisocytosis 1+, Microcytosis 1+, Macrocytosis RARE, Ovalocytes RARE 08/20/21 05:19: Sodium 133 L, Potassium 4.5, Chloride 103, Carbon Dioxide 22.0, Anion Gap 8, BUN 75 H, Creatinine 3.44 H, Estim Creat Clear Calc 19.61, Est GFR (MDRD) Af Amer 23 L, Est GFR (MDRD) Non-Af 19 L, BUN/Creatinine Ratio 21.8 H, Glucose 98, Calcium 6.1 L*, Total Bilirubin 0.30, AST 45 H, ALT 129 H, Alkaline Phosphatase 55, Total Protein 5.9 L, Albumin 2.9 L, Globulin 3.0, Albumin/Globulin Ratio 1.0 Micro: Microbiology 08/19/21 18:05 Nasal Secretion SARS-CoV-2 Antigen (Rapid) - Final Physical Exam Narrative Alert awake oriented x 3 no obvious distress no pallor no icterus no JVD s1s2 no murmurs lungs clear abdomen soft no organomegaly + edema no cyanosis Assessment & Plan Assessment/Plan (1) Acute renal failure: PLAN: Baseline creatinine seems to be around 1.6 or so. His creatinine was close to baseline as of 28. There were some labs on the but I am not sure if they were accurate because those were downtime labs and it seems the sample was drawn late Wednesday but he left before that time. Acute renal failure within the last 2 days. No clear precipitant. One episode of nausea. Poor intake. Bedside bladder scan x2 did not show significant retention. Renal ultrasound is ok. Urine analysis benign. FeNa 1.4. ? ischemic ATN. better today Hypocalcemia. due to hyperphosphatemia. continue oral ca. asymptomatic. hold binders in view of improving renal function History of myelofibrosis. Does not have significant elevation in white count or platelets. uric acid is not impressive for TLS Hyperkalemia. Better Discussed with hospitalist. ok to dc (2) Hyperkalemia, diminished renal excretion: (3) Hypocalcemia:
[2021-08-20] MEDS: Magnesium Chloride 64 MG Delay Rel.Tablet 128 MG PO (09:19)
[2021-08-20] MEDS: Oxymetazoline 0.05% 1 SPRAY SPRAY.BTL NASAL (09:19)
[2021-08-20] MEDS: Flecainide 100 MG Tablet PO (09:20)
[2021-08-20] MEDS: Iron Polysaccharide Complex 150 MG CAPSULE PO (09:20)
[2021-08-20] MEDS: Gemfibrozil 600 MG Tablet PO (09:20)
[2021-08-20] MEDS: APIXABAN 5 MG TABLET PO (09:21)
[2021-08-20] MEDS: Fluticasone 0.05% 1 SPRAY NASAL.SRY NASAL (09:21)
[2021-08-20 09:32] LABS: Pathologist Review Reviewed
[2021-08-20 09:45] LABS: Pathologist Review Reviewed
--- NOTE | 2021-08-20 10:44 | DCINST_ITS ---
Discharge Instructions Diet Discharge Diet: No restrictions Activity Discharge Activity: Return to Normal Activity Additional Activity Instructions:: Continue TRINITY hose or Ameya wraps lower extremities. Dressing / Incision Call your doctor if you observe: Shortness of breath, Dizziness and Chest pain Follow Up Care Test Results: Test results from this visit will be discussed in further detail at your follow-up appointment, if applicable. Discharge Plan Admission Admit Date/Time: 08/18/21 14:15 Primary Reason for Your Visit: Acute kidney injury Attending Provider: Santosh Louis Primary Care Provider: Diogenes Suarez Consulting Providers: Robb Dorado ; Efra Doss ; Kanwal Williamson ; Rere Barrera ; Rosibel Ontiveros ; Eitan Frost ; Jhon Pena ; Marianela Shi Discharge Orders/Prescriptions Prescriptions: New flecainide 100 mg Tablet 100 mg PO DAILY Qty: 0 RF: 0 Continued levothyroxine 112 mcg tablet 300 mcg PO DAILY RF: 0 gemfibrozil 600 MG tablet 600 mg PO DAILY RF: 0 allopurinol 300 MG tablet 300 mg PO DAILY RF: 0 finasteride 5 MG tablet 5 mg PO QHS RF: 0 alfuzosin 10 MG tablet extended release 24 hr 10 mg PO QHS RF: 0 fedratinib 100 MG capsule 200 mg PO DAILY RF: 0 darbepoetin aster in polysorbat 100 mcg/0.5 mL syringe 100 mcg SC Q14D RF: 0 multivitamin with minerals 1 EACH tablet 1 ea PO DAILY RF: 0 vitamin E 400 UNIT capsule 400 unit PO DAILY RF: 0 magnesium oxide 500 MG capsule 500 mg PO DAILY RF: 0 fluticasone propionate 50 mcg/actuation [place],Suspension 1 spray INTRANASAL BID RF: 0 apixaban 5 mg Tablet 5 mg PO BID RF: 0 polysaccharide iron complex [Ferrex 150] 150 mg iron Capsule 150 mg PO DAILYCM 30 Days Qty: 30 RF: 0 metoprolol succinate 100 mg Tablet Extended Release 24 Hr 100 mg PO BID 30 Days Qty: 60 RF: 0 Changed calcium carbonate 600 MG tablet 600 mg PO TID Qty: 0 RF: 0 Held flecainide 100 mg Tablet 100 mg PO BID 30 Days Qty: 60 RF: 0 Hold Instructions: Resume on 09/03/21. Take flecainide 100 mg once daily until repeat BMP to assess kidney function. May resume 100 mg twice daily when kidney function returns to baseline. Referrals / Follow Up: Kanwal Williamson MD [STAFF PHYSICIAN] - In 1 Week Diogenes Suarez DO [Primary Care Provider] - In 1 Week Elma Cartagena PA [PHYSICIAN LEAD PHP DEVELOPER] - In 1 Week Disposition Disposition (needs filled in before D/C Order can be placed): Home, Self Care
--- NOTE | 2021-08-20 11:00 | DS.PCM_ITS ---
Documented by User: Zulma Villanueva NP, CLINICAL TRIALS ASSISTANT-C 08/20/21 11:10 Providers Date of Admission: 08/18/21 Date of Discharge: 08/20/21 Primary Care Physician: Dr. Diogenes Suarez, Consultations 08/18/21 15:34 Consult: Nephrology Routine Consulting Provider: [facility] Reason for Consult: Acute kidney injury EMERGENT Consult: No MD Notified: Yes Date Notified: 08/18/21 Time Notified: 15:48 Method of Notification: Answering Service Reason For Visit: CAREY Diagnosis Discharge Diagnosis (1) Acute renal failure: Status: Acute Code(s): N17.9 - Acute kidney failure, unspecified (2) Hyperkalemia, diminished renal excretion: Status: Acute Code(s): E87.5 - Hyperkalemia (3) Hypocalcemia: Status: Acute Code(s): E83.51 - Hypocalcemia Medications at Discharge Home Medications allopurinol 300 mg PO DAILY 02/04/18 finasteride 5 mg PO QHS 02/04/18 gemfibrozil 600 mg PO DAILY 02/04/18 alfuzosin 10 mg PO QHS 04/21/20 fedratinib 200 mg PO DAILY 04/21/20 darbepoetin aster in polysorbat 100 mcg/0.5 mL in polysorbate injection syringe 100 mcg SC Q14D 05/15/20 magnesium oxide 500 mg PO DAILY 07/30/20 multivitamin with minerals 1 ea PO DAILY 07/30/20 vitamin E 400 unit PO DAILY 07/30/20 levothyroxine 112 mcg tablet 300 mcg PO DAILY tab 08/13/20 apixaban 5 mg PO BID 08/13/21 fluticasone propionate 1 spray INTRANASAL BID 08/13/21 flecainide 100 mg PO BID 30 Days #60 tab 08/15/21 metoprolol succinate 100 mg PO BID 30 Days #60 tab 08/15/21 polysaccharide iron complex [Ferrex 150] 150 mg PO DAILYCM 30 Days #30 cap 08/15/21 calcium carbonate 600 mg PO TID #0 tab 08/20/21 flecainide 100 mg PO DAILY #0 tab 08/20/21 Hospital Course Operations None Procedures None Summary of Care Provided Hospital Course: Patient is a 71-year-old male admitted 08/18/2021 due to poor urine output. 1. Acute kidney injury on CKD stage IIIa-nephrology consulted during admission. Patient received IV fluids with improvement in creatinine. Renal ultrasound unremarkable. FENa 1.4. No evidence of retention. Continue to hold nephrotoxic regimen at discharge. Repeat BMP in 1 week. Follow-up with PCP and nephrology at discharge. 2. Hyperkalemia-secondary to #1. Resolved. 3. Hypocalcemia-secondary to hyperphosphatemia. Continue calcium supplement at discharge. Repeat BMP in 1 week as noted above. 4. Chronic normocytic anemia/chronic pancytopenia-stable. 5. BPH-history of TURP/UroLift. On finasteride. 6. Recent bilateral pneumonia secondary to COVID-19 with associated hypoxia-patient recently discharged on 4 L nasal cannula. Ambulatory pulse ox prior to discharge. Patient is out of isolation and completed treatment. 7. Paroxysmal atrial fibrillation-underwent previous ablation. Amiodarone discontinued during recent admission. Initiated on flecainide and metoprolol. Continue anticoagulation with Eliquis. Previous echocardiogram 04/11/2021 demonstrated an EF of 57%. Will need follow-up with electrophysiology. Due to decreased creatinine clearance, flecainide reduced to 100 mg daily. This may be increased to 100 mg twice daily as outpatient when kidney function returns to baseline. 8. 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 On fedratinib. Follow-up with oncology. 9. Hypothyroidism-continue Synthroid regimen. Recent thyroid studies normal. 10. CAD-on metoprolol, Eliquis. Nonobstructive. 11. Hypertension-stable, continue metoprolol. 12. Hyperlipidemia-on gemfibrozil. Not on statin. Physical Exam Const alert, oriented x3 and no apparent distress Orientation / Consciousness: awake, oriented to person, oriented to place and oriented to time HEENT normocephalic and moist oral mucous membranes Eyes PERRL, EOMs intact bilaterally and conjunctivae normal Neck no lymphadenopathy Resp clear to auscultation bilaterally Auscultation: diminished lung sounds Cardio regular rate, regular rhythm and no murmurs Peripheral Pulses: pulses 2+ throughout GI normal to inspection, nondistended, normoactive bowel sounds, non-tender and non-distended Extremity normal to inspection General Extremity: edema bilateral lower extremity Details: moderate Skin no rashes or lesions noted Lesions: no lesions Rashes: no rashes Trauma: no lacerations or abrasions Neuro CN's II-XII intact bilaterally, no focal motor deficits, no sensory deficits noted and deep tendon reflexes 2+ bilaterally Psych mental status grossly normal and affect normal Patient seen and examined prior to discharge. Physical assessment as noted above. Patient is stable for discharge with follow up recommendations as noted above. This patient was seen by ALLISON Katz under the supervision of Dr. Louis. Time spent examining patient, reviewing data and subsequent management of care: 14 Minutes Weight / BMI Weight Weight: 207 lb 7.28 oz Body Mass Index (BMI) 30.9 ABG / Lab / Microbiology Data Result Diagrams: 08/20/21 05:19 08/20/21 05:19 Laboratory: Laboratory Results - last 24 hr 08/18/21 12:30: Diff Path Review Reviewed 08/19/21 04:49: Diff Path Review Reviewed 08/20/21 05:19: WBC 4.3 L, RBC 3.22 L, Hgb 8.5 L, Hct 27.7 L, MCV 86.0, MCH 26.4 L, MCHC 30.7 L, RDW Std Deviation 62.7 H, RDW Coeff of [place] 20.9 H, Plt Count 243, MPV 10.6, Immature Gran % (Auto) 0.900, Neut % (Auto) 74.4 H, Lymph % (Auto) 15.9 L, [place] % (Auto) 6.9, Eos % (Auto) 1.2, Baso % (Auto) 0.7, Absolute Neuts (auto) 3.2, Absolute Lymphs (auto) 0.69 L, Nucleated RBC % 0.9, Differential Comment SCANNED, Anisocytosis 1+, Microcytosis 1+, Macrocytosis RARE, Ovalocytes RARE 08/20/21 05:19: Sodium 133 L, Potassium 4.5, Chloride 103, Carbon Dioxide 22.0, Anion Gap 8, BUN 75 H, Creatinine 3.44 H, Estim Creat Clear Calc 19.61, Est GFR (MDRD) Af Amer 23 L, Est GFR (MDRD) Non-Af 19 L, BUN/Creatinine Ratio 21.8 H, Glucose 98, Calcium 6.1 L*, Total Bilirubin 0.30, AST 45 H, ALT 129 H, Alkaline Phosphatase 55, Total Protein 5.9 L, Albumin 2.9 L, Globulin 3.0, Albumin/Glob ulin Ratio 1.0 Microbiology: Microbiology 08/19/21 18:05 Nasal Secretion SARS-CoV-2 Antigen (Rapid) - Final D/C Instructions Discharge Diet: No restrictions Additional Activity Instructions: Continue TRINITY hose or Ameya wraps lower extremities. Call your doctor if you observe: Shortness of breath, Dizziness and Chest pain Meaningful Use Info Meaningful Use Diagnoses (Choose all that apply): None applicable Discharge Plan Admission Admit Date/Time: 08/18/21 14:15 Primary Reason for Your Visit: Acute kidney injury Attending Provider: Santosh Louis Primary Care Provider: Dioegnes Suarez Consulting Providers: Robb Dorado ; Efra Doss ; Kanwal Williamson ; Rere Barrera ; Rosibel Ontiveros ; Eitan Frost ; Jhon Pena ; Marianela Shi Discharge Orders/Prescriptions Prescriptions: New flecainide 100 mg Tablet 100 mg PO DAILY Qty: 0 RF: 0 Continued levothyroxine 112 mcg tablet 300 mcg PO DAILY RF: 0 gemfibrozil 600 MG tablet 600 mg PO DAILY RF: 0 allopurinol 300 MG tablet 300 mg PO DAILY RF: 0 finasteride 5 MG tablet 5 mg PO QHS RF: 0 alfuzosin 10 MG tablet extended release 24 hr 10 mg PO QHS RF: 0 fedratinib 100 MG capsule 200 mg PO DAILY RF: 0 darbepoetin aster in polysorbat 100 mcg/0.5 mL syringe 100 mcg SC Q14D RF: 0 multivitamin with minerals 1 EACH tablet 1 ea PO DAILY RF: 0 vitamin E 400 UNIT capsule 400 unit PO DAILY RF: 0 magnesium oxide 500 MG capsule 500 mg PO DAILY RF: 0 fluticasone propionate 50 mcg/actuation [place],Suspension 1 spray INTRANASAL BID RF: 0 apixaban 5 mg Tablet 5 mg PO BID RF: 0 polysaccharide iron complex [Ferrex 150] 150 mg iron Capsule 150 mg PO DAILYCM 30 Days Qty: 30 RF: 0 metoprolol succinate 100 mg Tablet Extended Release 24 Hr 100 mg PO BID 30 Days Qty: 60 RF: 0 Changed calcium carbonate 600 MG tablet 600 mg PO TID Qty: 0 RF: 0 Held flecainide 100 mg Tablet 100 mg PO BID 30 Days Qty: 60 RF: 0 Hold Instructions: Resume on 09/03/21. Take flecainide 100 mg once daily until repeat BMP to assess kidney function. May resume 100 mg twice daily when kidney function returns to baseline. Referrals / Follow Up: Kanwal Williamson MD [STAFF PHYSICIAN] - In 1 Week Diogenes Suarez DO [Primary Care Provider] - In 1 Week (Please call and setup a hospital follow up. ) Elma Cartagena PA [PHYSICIAN TELEPHONE INFORMATION SUPERVISOR] - 08/27/21 9:30 am Disposition Disposition (needs filled in before D/C Order can be placed): Home, Self Care Documented by User: Dr. Santosh Louis DO 08/20/21 15:13 Providers Date of Admission: 08/18/21 Reason For Visit: CAREY Medications at Discharge Home Medications allopurinol 300 mg PO DAILY 02/04/18 finasteride 5 mg PO QHS 02/04/18 gemfibrozil 600 mg PO DAILY 02/04/18 alfuzosin 10 mg PO QHS 04/21/20 fedratinib 200 mg PO DAILY 04/21/20 darbepoetin aster in polysorbat 100 mcg/0.5 mL in polysorbate injection syringe 100 mcg SC Q14D 05/15/20 magnesium oxide 500 mg PO DAILY 07/30/20 multivitamin with minerals 1 ea PO DAILY 07/30/20 vitamin E 400 unit PO DAILY 07/30/20 levothyroxine 112 mcg tablet 300 mcg PO DAILY tab 08/13/20 apixaban 5 mg PO BID 08/13/21 fluticasone propionate 1 spray INTRANASAL BID 08/13/21 flecainide 100 mg PO BID 30 Days #60 tab 08/15/21 metoprolol succinate 100 mg PO BID 30 Days #60 tab 08/15/21 polysaccharide iron complex [Ferrex 150] 150 mg PO DAILYCM 30 Days #30 cap 08/15/21 calcium carbonate 600 mg PO TID #0 tab 08/20/21 flecainide 100 mg PO DAILY #0 tab 08/20/21 Hospital Course Operations None Summary of Care Provided Minutes Spent on Discharge: 25 Hospital Course: Is a [place]ital[place] 11-year-old male presents with poor urine output. Patient was found to have acute kidney injury and CKD 3A. And hyperkalemia. Creatinine was noted to be 4.76 when he arrived and's potassium was 5.9. Patient received IV fluids and those did improve. Patient was seen in consultation by nephrology and no indication for renal replacement therapy at this time. He did also have hypocalcemia which is likely with his hyperphosphatemia. Nephrology is not recommending binders at this time. Uric acid was notably elevated at 9.8 but not significant enough to be concerned about tumor lysis syndrome. Physical Exam Const alert Resp normal respiratory effort, no retractions, no use of accessory muscles and clear to auscultation bilaterally Cardio regular rate, regular rhythm, S1 normal heart sound and S2 normal heart sound GI normal to inspection, nondistended, normoactive bowel sounds and soft to palpation Extremity normal to inspection Neuro Sensorium / Orientation: awake ABG / Lab / Microbiology Data Result Diagrams: 08/20/21 05:19 08/20/21 05:19 Discharge Plan Admission Admit Date/Time: 08/18/21 14:15 Primary Reason for Your Visit: Acute kidney injury Attending Provider: Santosh Louis Primary Care Provider: Diogenes Suarez Consulting Providers: Robb Dorado ; Efra Doss ; Kanwal Williamson ; Rere Barrera ; Rosibel Ontiveros ; Eitan Frost ; Jhon Pena ; Marianela Shi Discharge Orders/Prescriptions Prescriptions: New flecainide 100 mg Tablet 100 mg PO DAILY Qty: 0 RF: 0 Continued levothyroxine 112 mcg tablet 300 mcg PO DAILY RF: 0 gemfibrozil 600 MG tablet 600 mg PO DAILY RF: 0 allopurinol 300 MG tablet 300 mg PO DAILY RF: 0 finasteride 5 MG tablet 5 mg PO QHS RF: 0 alfuzosin 10 MG tablet extended release 24 hr 10 mg PO QHS RF: 0 fedratinib 100 MG capsule 200 mg PO DAILY RF: 0 darbepoetin aster in polysorbat 100 mcg/0.5 mL syringe 100 mcg SC Q14D RF: 0 multivitamin with minerals 1 EACH tablet 1 ea PO DAILY RF: 0 vitamin E 400 UNIT capsule 400 unit PO DAILY RF: 0 magnesium oxide 500 MG capsule 500 mg PO DAILY RF: 0 fluticasone propionate 50 mcg/actuation [place],Suspension 1 spray INTRANASAL BID RF: 0 apixaban 5 mg Tablet 5 mg PO BID RF: 0 polysaccharide iron complex [Ferrex 150] 150 mg iron Capsule 150 mg PO DAILYCM 30 Days Qty: 30 RF: 0 metoprolol succinate 100 mg Tablet Extended Release 24 Hr 100 mg PO BID 30 Days Qty: 60 RF: 0 Changed calcium carbonate 600 MG tablet 600 mg PO TID Qty: 0 RF: 0 Held flecainide 100 mg Tablet 100 mg PO BID 30 Days Qty: 60 RF: 0 Hold Instructions: Resume on 09/03/21. Take flecainide 100 mg once daily until repeat BMP to assess kidney function. May resume 100 mg twice daily when kidney function returns to baseline. Referrals / Follow Up: Kanwal Williamson MD [STAFF PHYSICIAN] - In 1 Week Diogenes Suarez DO [Primary Care Provider] - In 1 Week (Please call and setup a hospital follow up. ) Elma Cartagena PA [PHYSICIAN TELEPHONE INFORMATION SUPERVISOR] - 08/27/21 9:30 am Disposition Disposition (needs filled in before D/C Order can be placed): Home, Self Care Charges/Coding Visit Charges Inpatient E&M: 26591 Disch Hosp
--- NOTE | 2021-08-20 12:13 | CASEMGMT ---
Per Susannah FRANCE, pt does not qualify for home oxygen at this time. Pt independent in room and states no further questions/concerns/needs. Anderson FRANCE CM
== END 2021-08-20 14:19 | disposition home or self-care (01) | DRG 683 ==
LOC: ED 14:17 → PCU 14:57
PROVIDERS: Internal Medicine Nephrology; Nurse Practitioner Family; Admitting Provider Internal Medicine; Emergency Provider Emergency Medicine; PCP Preventive Medicine Occupational Medicine
DX: N17.9 Acute kidney failure, unspecified (principal); D61.818 Other pancytopenia; D75.81 Myelofibrosis; I13.0 Hypertensive heart and chronic kidney disease with heart failure and stage 1 through stage 4 chronic kidney disease, or unspecified chronic kidney disease; I50.32 Chronic diastolic (congestive) heart failure; E87.1 Hypo-osmolality and hyponatremia; E87.2 Acidosis; E83.39 Other disorders of phosphorus metabolism; I48.0 Paroxysmal atrial fibrillation; N18.31 Chronic kidney disease, stage 3a; E83.51 Hypocalcemia; E87.5 Hyperkalemia; E78.5 Hyperlipidemia, unspecified; N40.0 Benign prostatic hyperplasia without lower urinary tract symptoms; I25.10 Atherosclerotic heart disease of native coronary artery without angina pectoris; E03.9 Hypothyroidism, unspecified; D53.9 Nutritional anemia, unspecified; Z79.01 Long term (current) use of anticoagulants; Z87.891 Personal history of nicotine dependence; Z86.16 Personal history of COVID-19; Z66 Do not resuscitate; Z87.01 Personal history of pneumonia (recurrent)
CPT/HCPCS: 36415; 76770; 80048; 80053; 80076; 81001; 82570; 83735; 83935; 84100; 84156; 84300; 84550; 85025; 87426; 93005; 97802; 99251; 99284; J7030; A4216; G0463

== ENCOUNTER 2021-08-25 13:47 | Outpatient (CLI) | payer MEDICARE, SELFPAY ==
[2021-08-25 15:13] LABS: BUN 34 mg/dL (7-18); BUN/Creat Ratio 17.3 RATIO (10-20); Calcium,Total 7.2 mg/dL (8.5-10.1); Chloride 108 mmol/L (98-107); Creatinine, Serum 1.96 mg/dL (0.70-1.30); EST Glomerular Filtration Rate 36 mL/min (>60); Est Glom Filt Rate - Afr Amer 44 mL/min (>60); Glucose 122 mg/dL (74-106); Phosphorus 3.2 mg/dL (2.5-4.9); Potassium 4.4 mmol/L (3.5-5.1); Sodium Level 139 mmol/L (136-145)
== END 2021-08-25 23:59 | disposition home or self-care (01) ==
LOC: LAB 13:48
PROVIDERS: PCP Preventive Medicine Occupational Medicine; Visit Provider Internal Medicine Nephrology
DX: E87.5 Hyperkalemia (principal)
CPT/HCPCS: 36415; 80069

== ENCOUNTER 2021-08-27 10:31 | Outpatient (CLI) | payer MEDICARE, SELFPAY ==
[2021-08-27 11:40] LABS: Anion Gap 4 (5-15); BUN 37 mg/dL (7-18); BUN/Creat Ratio 19.3 RATIO (10-20); Calcium,Total 7.3 mg/dL (8.5-10.1); Chloride 108 mmol/L (98-107); Creatinine, Serum 1.92 mg/dL (0.70-1.30); EST Glomerular Filtration Rate 37 mL/min (>60); Est Glom Filt Rate - Afr Amer 45 mL/min (>60); Glucose 75 mg/dL (74-106); Potassium 4.1 mmol/L (3.5-5.1); Sodium Level 140 mmol/L (136-145)
== END 2021-08-27 23:59 | disposition home or self-care (01) ==
LOC: LAB 10:33
PROVIDERS: PCP Preventive Medicine Occupational Medicine; Visit Provider Nurse Practitioner Gerontology
DX: R06.00 Dyspnea, unspecified (principal)
CPT/HCPCS: 36415; 80048; 83880

== ENCOUNTER 2021-09-01 00:15 | Emergency (ER) | payer MEDICARE, SELFPAY ==
[2021-09-01] VITALS (8 sets, daily range): BP systolic 84–96; BP diastolic 59–80; PULSE 69–108; RESP 15–20; TEMP 35.9; O2SAT 95–99; BMI 31.0
--- NOTE | 2021-09-01 00:28 | EKG12_ITS ---
Test Reason : CP Blood Pressure : / mmHG Vent. Rate : 071 BPM Atrial Rate : 071 BPM P-R Int : 274 ms QRS Dur : 106 ms QT Int : 490 ms P-R-T Axes : 023 -11 256 degrees QTc Int : 532 ms Sinus rhythm with 1st degree A-V block ST & T wave abnormality, consider anterolateral ischemia Prolonged QT Abnormal ECG Confirmed by BLESSING CHINCHILLA, DAVID ([id number]), newspaper copy editor SUJATHA FERNÁNDEZ ([id number]) on 09/02/2021 12:56:01 PM Referred By: JOSE M Confirmed By:DAVID FUNK MD
--- NOTE | 2021-09-01 00:32 | EDS_ITS ---
HPI History of Present Illness Chief Complaint: Chest Pain Informant: patient and spouse/S.O. Narrative Narrative: Patient presents with some dyspnea and mild chest heaviness. Chest heaviness is now gone. He was in the hospital recently for acute kidney injury and they held his Lasix. He has been back on Lasix at 40 mg twice a day. He states that he is not getting as much urine output today when he does took the Lasix. When he laid down tonight he got dyspnea with some chest heaviness. The heaviness is now gone. He has oxygen at home at up to 2 Liters and tried it but it really did not help him. He also has slight increased edema recently. But it is still less than when he left the hospital. After he went home the edema was getting progressively less but now it is coming back slightly again. Per our scale he has gained 20 pounds since discharge when the nurse looked at the record. No fevers chills. He had Covid a bit ago and feels like that is mostly resolved. He has a rare cough but no productivity. He is taking his Eliquis. [facility] Medical History Anemia Chronic diastolic (congestive) heart failure Essential thrombocytosis History of COVID-19 Hyperlipidemia Hypothyroidism Leukopenia Myelofibrosis Myeloproliferative neoplasm Neutropenic fever Pancytopenia Paroxysmal atrial fibrillation Paroxysmal atrial tachycardia (04/11/21) Right inguinal hernia Splenomegaly Thrombocytopenia Thyroid disease Home Medications allopurinol 300 mg PO DAILY 02/04/18 [History Last Taken 03/23/18 11:00 300 mg] finasteride 5 mg PO QHS 02/04/18 [History Last Taken 03/22/18 22:00 5 mg] gemfibrozil 600 mg PO DAILY 02/04/18 [History Last Taken 03/23/18 08:00 600 mg] alfuzosin 10 mg PO QHS 04/21/20 [History Last Taken Unknown] fedratinib 200 mg PO DAILY 04/21/20 [History Last Taken 07/30/20] darbepoetin aster in polysorbat 100 mcg/0.5 mL in polysorbate injection syringe 100 mcg SC Q14D 05/15/20 [History Last Taken Unknown] levothyroxine 112 mcg tablet 300 mcg PO DAILY tab 08/13/20 [History Last Taken Unknown] apixaban 5 mg PO BID 08/13/21 [History Last Taken Unknown] fluticasone propionate 1 spray INTRANASAL BID 08/13/21 [History Last Taken Unknown] polysaccharide iron complex [Ferrex 150] 150 mg PO DAILYCM 30 Days #30 cap 08/15/21 [Rx Last Taken Unknown] calcium carbonate 600 mg PO TID #0 tab 08/20/21 [Rx Last Taken Unknown] flecainide 100 mg tablet 100 mg PO Q12H #180 tab 08/27/21 [Rx Last Taken Unknown] furosemide 40 mg tablet 40 mg PO BID 08/27/21 [History Last Taken Unknown] metoprolol succinate 100 mg tablet,extended release 24 hr 100 mg PO BID tab 08/27/21 [History Last Taken Unknown] Allergy/AdvReac Type Severity Reaction Status Date / Time pseudoephedrine AdvReac Severe Itching Verified 09/01/21 00:21 [From [facility] [place]] Family History Mother Heart disease Dementia Diabetes Father COPD (chronic obstructive pulmonary disease) Heart disease Sister Cancer uterine Surgical History H/O cardiac catheterization (12/02/17) H/O prostate biopsy H/O right inguinal hernia repair History of bone marrow biopsy History of colonoscopy (2012) History of radiofrequency ablation procedure for cardiac arrhythmia (01/06/21) History of thyroidectomy History of transurethral resection of prostate (07/2020) Social History household members: spouse Smoking Status: Former smoker alcohol intake: never substance use type: does not use ROS ROS ED Constitutional Constitutional ED: Denies chills or fever(s) ENT ENT ED: Denies rhinorrhea or sore throat Cardiovascular Cardiovascular: Reports chest pain and orthopnea; Denies palpitations Respiratory/Chest Respiratory/Chest: Reports dyspnea and orthopnea Gastrointestinal Gastrointestinal: Denies abdominal pain, nausea or vomiting Genitourinary Genitourinary ED: Reports other Details: Less urine output with Lasix over the last couple days. ; Denies dysuria Musculoskeletal Musculoskeletal: Denies myalgias Integumentary Denies rash Neurologic Neurologic: Denies headache(s) Endocrine Endocrinology: Denies polydipsia or polyuria Hematologic/Lymphatic Hematologic/Lymphatic: Reports easy bleeding and easy bruising Allergic/Immunologic Allergic/Immunologic ED: Denies urticaria EXAM Physical Exam Const Vital Signs: 09/01/21 00:16 09/01/21 00:22 09/01/21 00:32 Temperature 96.6 F L Temperature Source Temporal Pulse Rate 72 Respiratory Rate 18 Respiratory Pattern Normal Blood Pressure 96/80 Blood Pressure Mean 85 Pulse Ox 97 97 Oxygen Delivery Method Room Air Room Air Oxygen Flow Rate (L/min) 09/01/21 00:55 09/01/21 01:16 09/01/21 02:00 Temperature Temperature Source Pulse Rate 91 69 Respiratory Rate 18 15 Respiratory Pattern Blood Pressure 86/59 L 87/60 L 84/59 L Blood Pressure Mean 68 69 67 Pulse Ox 98 97 Oxygen Delivery Method Nasal Cannula Nasal Cannula Oxygen Flow Rate (L/min) 2 2 09/01/21 03:10 Temperature Temperature Source Pulse Rate 108 H Respiratory Rate 20 H Respiratory Pattern Blood Pressure 93/74 Blood Pressure Mean 80 Pulse Ox 99 Oxygen Delivery Method Nasal Cannula Oxygen Flow Rate (L/min) 2 Positive well nourished and well developed Constitutional Narrative: Very mild dyspnea laying down. Nontoxic in appearance. General Appearance ED: well developed and NAD HEENT normocephalic Eyes General Eye ED: Negative for pale conjunctiva or scleral icterus Neck no JVD Neck Narrative: No notable JVD. Chest Wall inspection of chest normal Resp Resp Narrative: Very slight basilar rales. No rhonchi. No wheezes. He does take good deep breaths. Mild increased respiratory effort. Cardio regular rate and regular rhythm GI normal to inspection, nondistended, normoactive bowel sounds Back/Spine no CVA tenderness Extremity Extremity Narrative: Does have +2 pitting edema. He states this had gotten better but is now worsening again. General Extremety ED: Yes edema; Negative for tenderness General Extremity: edema Neuro Sensorium / Orientation: awake and alert Skin no rashes or lesions noted MDM MDM MDM Narrative Medical decision making narrative: We were actually able to find a wait before discharge that was an official weight of 207. A stated weight from the patient was 183 though. However he is still 3 pounds down from his discharge weight. His BNP is decreasing. His chest x-ray is not showing signs of congestive heart failure. His blood pressure is a little bit down. Despite his initial presentation, I concerned that he might actually be reduced fluid. His dyspnea and chest pressure may have even been due to lower blood pressure. With his weight down, x-ray not showing CHF, blood pressure down, kidney function worsening, BNP down, we will actually try a small dose of fluids. He will be reassessed. I have added lactate and further electrolytes. He does have hypocalcemia but has had this for a long time. He has anemia at age 6 but again this is near his baseline. Patient was given 2 boluses of 250 cc of saline. His blood pressure improved. He felt good. We walked him around with his oxygen that he wears at home. He states he was surprised that he did not feel dyspneic. His saturations stayed at 94% or higher. Patient also states that he has been going in and out of atrial fibrillation. 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 He will also see his web offset press feeder after calling him today. I am wondering if the patient had an episode of A. fib that cause dyspnea. His symptoms seem to be gone now. Overall his labs are doing better. His weight is still down from admission. Troponin is negative. BNP is down. X-ray shows chronic changes. He is not desaturating. He has good follow-up. He would prefer not to be in the hospital if this can be managed as an outpatient. I think that is a reasonable option. We did discuss cautiously limiting fluids. He should should also not eat salty foods and we reviewed what many of these are. We also discussed indications that would be causing him to come back. He does have an O2 saturation monitor at home and can check this regularly. Lab Data Attestation: I reviewed the patient's lab results. Labs: Laboratory Results - last 24 hr 09/01/21 09/01/21 09/01/21 00:25 00:25 00:25 WBC 3.0 L RBC 3.05 L Hgb 8.4 L Hct 27.5 L MCV 90.2 MCH 27.5 MCHC 30.5 L RDW Std Deviation 70.1 H RDW Coeff of Rafael 21.8 H Plt Count 175 MPV 12.4 H Immature Gran % (Auto) 1.300 H Neut % (Auto) 75.9 H Lymph % (Auto) 15.4 L Wake % (Auto) 6.4 Eos % (Auto) 0.3 Baso % (Auto) 0.7 Absolute Neuts (auto) 2.3 Absolute Lymphs (auto) 0.46 L Nucleated RBC % 0 Diff Path Review May foll Polychromasia 1+ Anisocytosis 2+ Microcytosis 1+ Macrocytosis 1+ Ovalocytes 1+ Schistocytes RARE Sodium 137 Potassium 4.7 Chloride 101 Carbon Dioxide 29.0 Anion Gap 7 BUN 56 H Creatinine 2.27 H Estim Creat Clear Calc 29.71 Est GFR (MDRD) Af Amer 37 L Est GFR (MDRD) Non-Af 31 L BUN/Creatinine Ratio 24.7 H Glucose 112 H Lactic Acid Calcium 6.0 L* Phosphorus Troponin I High Sens 5 B-Natriuretic Peptide 1510.2 H 09/01/21 09/01/21 00:25 01:05 WBC RBC Hgb Hct MCV MCH MCHC RDW Std Deviation RDW Coeff of Rafael Plt Count MPV Immature Gran % (Auto) Neut % (Auto) Lymph % (Auto) Wake % (Auto) Eos % (Auto) Baso % (Auto) Absolute Neuts (auto) Absolute Lymphs (auto) Nucleated RBC % Diff Path Review Polychromasia Anisocytosis Microcytosis Macrocytosis Ovalocytes Schistocytes Sodium Potassium Chloride Carbon Dioxide Anion Gap BUN Creatinine Estim Creat Clear Calc Est GFR (MDRD) Af Amer Est GFR (MDRD) Non-Af BUN/Creatinine Ratio Glucose Lactic Acid 0.9 Calcium Phosphorus 5.0 H Troponin I High Sens B-Natriuretic Peptide Radiography Diagnostic Testing: Clinical Impression(s) from Imaging Studies Chest X-Ray 09/01/21 00:40 IMPRESSION: Persistent but slightly improving bilateral pulmonary infiltrate. at 0054 Reported and signed by: Jarrett Garcia MD Electronically Signed: Jarrett Garcia MD at 0:53 EST , EKG Initial EKG: Comments: EKG shows sinus rhythm with first-degree AV block and overall rate of 71. Nonspecific ST and T wave changes throughout. However, these are similar to August 19 and of this year. HI interval is long. QRS duration is normal. QTc is long at 532 ms. Discharge Plan Triage Chief Complaint: Chest Pain ED Provider: Fabien Meza Dx/Rx/DC Orders Clinical Impression: Acute dyspnea, Intermittent atrial fibrillation, Mild dehydration, Chronic CHF Instructions: ED Heart Failure, Congestive (CHF) Prescriptions: No Action levothyroxine 112 mcg tablet 300 mcg PO DAILY RF: 0 metoprolol succinate 100 mg tablet extended release 24 hr 100 mg PO BID RF: 0 furosemide [Lasix] 40 mg tablet 40 mg PO BID RF: 0 flecainide 100 mg tablet 100 mg PO Q12H Qty: 180 RF: 3 gemfibrozil 600 MG tablet 600 mg PO DAILY RF: 0 allopurinol 300 MG tablet 300 mg PO DAILY RF: 0 finasteride 5 MG tablet 5 mg PO QHS RF: 0 alfuzosin 10 MG tablet extended release 24 hr 10 mg PO QHS RF: 0 fedratinib 100 MG capsule 200 mg PO DAILY RF: 0 darbepoetin aster in polysorbat 100 mcg/0.5 mL syringe 100 mcg SC Q14D RF: 0 fluticasone propionate 50 mcg/actuation Orange,Suspension 1 spray INTRANASAL BID RF: 0 apixaban 5 mg Tablet 5 mg PO BID RF: 0 polysaccharide iron complex [Ferrex 150] 150 mg iron Capsule 150 mg PO DAILYCM 30 Days Qty: 30 RF: 0 calcium carbonate 600 MG tablet 600 mg PO TID Qty: 0 RF: 0 Primary Care Provider: Diogenes Suarez Referrals: Diogenes Suarez DO [Primary Care Provider] - 3-5 Days Disposition Disposition: Home, Self Care
--- NOTE | 2021-09-01 00:40 | RAD_ITS ---
HISTORY: chest pain EXAMINATION/TECHNIQUE: XR Chest 1 View AP view COMPARISON: AP chest x-ray from 08/16/21 FINDINGS: LINES/DEVICES: telemetry monitor leads. LUNGS: Slightly improving multifocal patchy bilateral pulmonary opacities. Stable mildly elevated right hemidiaphragm. No sizable pleural effusion. No pneumothorax detected. MEDIASTINUM AND CARDIOVASCULAR STRUCTURES: Stable upper limits normal heart size. Atherosclerotic calcifications along the aorta. BONES AND SOFT TISSUES: Skeletal degenerative changes. RAD/Chest 1 View (Portable) IMPRESSION: Persistent but slightly improving bilateral pulmonary infiltrate. at 0054 Reported and signed by: Jarrett Garcia MD Electronically Signed: Jarrett Garcia MD at 0:53 EST ,
[2021-09-01 00:46] LABS: Absolute Lymphocyte Count 0.46 X10^3/uL (0.83-4.51); Absolute Neutrophil Count 2.3 X10^3/uL (2.0-7.7); Basophil# 0.02 X10^3/uL; Basophil% 0.7 % (0-1); Eosinophil# 0.01 X10^3/uL; Eosinophils% 0.3 % (0-5); Hematocrit 27.5 % (40-54); Hemoglobin 8.4 g/dL (13.0-16.5); Lymphocyte # 0.46 X10^3/ul (0.83-4.51); Lymphocyte % 15.4 % (19-41); Mean Corp Hgb Conc 30.5 g/dL (32-36); Mean Corpuscular Hgb 27.5 pg (27.0-32.0); Mean Corpuscular Volume 90.2 fL (80-94); Mean Platelet Vol. 12.4 fl (6.2-12.0); Monocyte# 0.19 X10^3/uL; Monocyte% 6.4 % (0-10); NRBC Flagged by Analyzer 0 % (0-5); Neutrophil # 2.27 X10^3/uL (2.7-7.7); Neutrophil % 75.9 % (47-70); POSITIVE DIFFERENTIAL YES; POSITIVE MORPHOLOGY YES; Platelet Count 175 K/mm3 (150-450); RBC Distribution Width CV 21.8 % (11.6-14.6); RBC Distribution Width SD 70.1 fl (35.1-43.9); Red Blood Count 3.05 M/mm3 (4.6-6.2)
[2021-09-01 00:47] LABS: Differential Indicated SCAN CRITERIA MET
[2021-09-01 01:03] LABS: Anion Gap 7 (5-15); BUN 56 mg/dL (7-18); BUN/Creat Ratio 24.7 RATIO (10-20); Chloride 101 mmol/L (98-107); Creatinine, Serum 2.27 mg/dL (0.70-1.30); EST Glomerular Filtration Rate 31 mL/min (>60); Est Glom Filt Rate - Afr Amer 37 mL/min (>60); Estimated Creatinine Clearance 29.71 ml/min; Glucose 112 mg/dL (74-106); Potassium 4.7 mmol/L (3.5-5.1); Sodium Level 137 mmol/L (136-145); Troponin-I HS 5 pg/mL (3.0-78.0)
[2021-09-01 01:04] LABS: BNP,B-Type NATRIURETIC PEPTIDE 1510.2 pg/mL (0-100)
[2021-09-01 01:05] LABS: Polychromasia 1+
[2021-09-01 01:06] LABS: Anisocytosis 2+; Macrocytosis 1+; Microcytosis 1+; Ovalocyte 1+
[2021-09-01 01:07] LABS: Schistocytes RARE
[2021-09-01 01:39] LABS: Lactic Acid 0.9 mmol/L (0.4-1.9)
[2021-09-01 14:07] LABS: Pathologist Review Reviewed
[2021-09-02 13:44] LABS: MG Sendout 1.5 mg/dL (1.6-2.3)
== END 2021-09-01 04:02 | disposition home or self-care (01) ==
PROVIDERS: Emergency Provider Emergency Medicine; PCP Preventive Medicine Occupational Medicine; Visit Provider Emergency Medicine
DX: I48.91 Unspecified atrial fibrillation (principal); I50.32 Chronic diastolic (congestive) heart failure; D69.6 Thrombocytopenia, unspecified; E83.51 Hypocalcemia; Z87.891 Personal history of nicotine dependence; E86.0 Dehydration; E78.5 Hyperlipidemia, unspecified; R06.00 Dyspnea, unspecified; Z86.16 Personal history of COVID-19; E03.9 Hypothyroidism, unspecified
CPT/HCPCS: 71045; 80048; 83605; 83735; 83880; 84100; 84484; 85025; 93005; 96360; 99285; J7050; A4216

== ENCOUNTER 2021-09-06 05:00 | Inpatient (IN) | payer MEDICARE, SELFPAY ==
[2021-09-06] VITALS (12 sets, daily range): BP systolic 101–117; BP diastolic 60–72; PULSE 53–102; RESP 12–18; TEMP 36.3–36.8; O2SAT 93–98; BMI 31.9; BMI 33.1
--- NOTE | 2021-09-06 05:20 | EDS_ITS ---
HPI History of Present Illness Chief Complaint: Complaint Narrative Narrative: Patient with past medical history of CHF, BPH, had UroLift performed 2 years ago to move the prostate out of the way of his urethra, presents with urinary retention since 7:00 PM yesterday evening, 10-1/2 hours ago. He states that his bladder feels full. He has been unable to produce any urine since then. Of note, he states that he was seen here on Wednesday, approximately 7 days ago, and was told he was dehydrated and that he was not producing urine. He does take Lasix. He presents with inability to urinate. [facility] Medical History Anemia Chronic diastolic (congestive) heart failure Chronic heart failure with preserved ejection fraction (HFpEF) Essential thrombocytosis History of COVID-19 Hyperlipidemia Hypothyroidism Leukopenia Mild dehydration Myelofibrosis Myeloproliferative neoplasm Neutropenic fever Pancytopenia Paroxysmal atrial fibrillation Paroxysmal atrial tachycardia (04/11/21) Right inguinal hernia Splenomegaly Thrombocytopenia Thyroid disease Home Medications allopurinol 300 mg PO DAILY 02/04/18 [History Last Taken 03/23/18 11:00 300 mg] finasteride 5 mg PO QHS 02/04/18 [History Last Taken 03/22/18 22:00 5 mg] gemfibrozil 600 mg PO DAILY 02/04/18 [History Last Taken 03/23/18 08:00 600 mg] alfuzosin 10 mg PO QHS 04/21/20 [History Last Taken Unknown] fedratinib 200 mg PO DAILY 04/21/20 [History Last Taken 07/30/20] darbepoetin aster in polysorbat 100 mcg/0.5 mL in polysorbate injection syringe 100 mcg SC Q14D 05/15/20 [History Last Taken Unknown] levothyroxine 112 mcg tablet 300 mcg PO DAILY tab 08/13/20 [History Last Taken Unknown] fluticasone propionate 1 spray INTRANASAL BID 08/13/21 [History Last Taken Unknown] polysaccharide iron complex [Ferrex 150] 150 mg PO DAILYCM 30 Days #30 cap 08/15/21 [Rx Last Taken Unknown] calcium carbonate 600 mg PO TID #0 tab 08/20/21 [Rx Last Taken Unknown] flecainide 100 mg tablet 100 mg PO Q12H #180 tab 08/27/21 [Rx Last Taken Unknown] furosemide 40 mg tablet 40 mg PO BID 08/27/21 [History Last Taken Unknown] metoprolol succinate 100 mg tablet,extended release 24 hr 100 mg PO BID tab 08/27/21 [History Last Taken Unknown] apixaban 2.5 mg tablet 2.5 mg PO BID #180 tab 09/01/21 [Rx Last Taken Unknown] metolazone 2.5 mg tablet 2.5 mg PO .weekly #2 tab 09/01/21 [Rx Last Taken Unknown] Allergy/AdvReac Type Severity Reaction Status Date / Time pseudoephedrine AdvReac Severe Itching Verified 09/01/21 00:21 [From [facility]] Family History Mother Heart disease Dementia Diabetes Father COPD (chronic obstructive pulmonary disease) Heart disease Sister Cancer uterine Surgical History H/O cardiac catheterization (12/02/17) H/O prostate biopsy H/O right inguinal hernia repair History of bone marrow biopsy History of colonoscopy (2012) History of radiofrequency ablation procedure for cardiac arrhythmia (01/06/21) History of thyroidectomy History of transurethral resection of prostate (07/2020) Social History household members: spouse Smoking Status: Former smoker alcohol intake: never substance use type: does not use ROS ROS ED ROS Narrative Constitutional: No fever, no chills. HEENT: No sore throat. No neck pain. No loss of vision. No rhinorrhea. Cardiovascular: No chest pain. No palpitations. No pedal edema. Respiratory: No cough, no shortness of breath. Abdominal: Suprapubic fullness/abdominal pain. No nausea. No vomiting. Genitourinary: No dysuria. No hematuria. Unable to produce urine stream at all since 7 PM yesterday evening. Musculoskeletal: No myalgias. No arthralgias. Neurologic: No headaches. No dizziness. No lightheadedness. Skin: No rash. No change in color. Psychiatric: No depression. No anxiety. EXAM Physical Exam Narrative Exam Narrative: Afebrile. Vital signs noted. HEENT: Normocephalic. Atraumatic. PERRL, EOMI. Neck soft and supple. No point tenderness or step off. Cardiovascular: Regular rate and rhythm. No murmurs, rubs, or gallops appreciated. Respiratory: No tachypnea. Lungs clear to auscultation bilaterally. Gastrointestinal: Abdomen soft, nontender, with normoactive bowel sounds. Positive bladder distention. No rebound or guarding. Neurological: Awake. Alert. Nonfocal, nonlateralizing. Skin: No rash. Normal color. No pallor. Musculoskeletal: No pedal edema. Full range of motion extremities. Const Vital Signs: 09/06/21 05:01 Temperature 97.4 F L Temperature Source Oral Pulse Rate 53 L Respiratory Rate 12 Blood Pressure 101/60 Blood Pressure Mean 73 Pulse Ox 98 Oxygen Delivery Method Room Air MDM MDM MDM Narrative Medical decision making narrative: I reviewed the patient's prior records. He has been admitted because his creatinine continued to increase. Last time he was seen, his creatinine was in the twos. Montgomery catheter was placed and he had approximately 400 mL of urine output. This is lower than normal based on his last ability to urinate. I do not think that this is a strict urinary retention. I checked his CBC and BMP. He has a chronic neutropenia. Hemoglobin stable at 9.0. His electrolyte panel shows sodium low at 132 with a chloride of 96 with mild dehydration but he tends to be hyponatremic. Potassium normal at 4.4. His creatinine did increase to 3.32 with a BUN of 87. I am hesitant to give him a large fluid bolus given his history of CHF. His creatinine has increased significantly. Of note, his calcium is low at 5.8, the lowest it has been in quite some time. He will be placed on a outpatient facility physical therapist and be administered calcium gluconate 1 g intravenously. At this point in time, I will discuss the patient with the hospitalist for least observation. 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 Disposition is assigned to observation. Patient is in stable condition. Patient had been discussed with Dr. Vidal. Lab Data Labs: Laboratory Results - last 24 hr 09/06/21 09/06/21 05:45 05:45 WBC 3.0 L RBC 3.28 L Hgb 9.0 L Hct 28.1 L MCV 85.7 MCH 27.4 MCHC 32.0 RDW Std Deviation 64.4 H RDW Coeff of Rafael 20.9 H Plt Count 155 MPV TNP Immature Gran % (Auto) 0.700 Neut % (Auto) 76.2 H Lymph % (Auto) 15.8 L Saline % (Auto) 5.6 Eos % (Auto) 0.7 Baso % (Auto) 1.0 Absolute Neuts (auto) 2.3 Absolute Lymphs (auto) 0.48 L Nucleated RBC % 0 Differential Comment SCANNED Diff Path Review May foll Anisocytosis 1+ Microcytosis 1+ Tear Drop Cells RARE Sodium 132 L Potassium 4.4 Chloride 96 L Carbon Dioxide 28.0 Anion Gap 8 BUN 87 H Creatinine 3.32 H Estim Creat Clear Calc 20.32 Est GFR (MDRD) Af Amer 24 L Est GFR (MDRD) Non-Af 20 L BUN/Creatinine Ratio 26.2 H Glucose 113 H Calcium 5.8 L* Discharge Plan Dx/Rx/DC Orders Clinical Impression: Decreased urine output, Hypocalcemia, Acute on chronic kidney failure Disposition Disposition: Acute Care Hospital [facility]
--- NOTE | 2021-09-06 05:53 | ED.RN ---
SOL PLACED. PT TOLERATED WELL. URINE OUTPUT 400
[2021-09-06 05:59] LABS: Absolute Lymphocyte Count 0.48 X10^3/uL (0.83-4.51); Absolute Neutrophil Count 2.3 X10^3/uL (2.0-7.7); Basophil# 0.03 X10^3/uL; Eosinophil# 0.02 X10^3/uL; Eosinophils% 0.7 % (0-5); Hematocrit 28.1 % (40-54); Lymphocyte # 0.48 X10^3/ul (0.83-4.51); Lymphocyte % 15.8 % (19-41); Mean Corpuscular Hgb 27.4 pg (27.0-32.0); Mean Corpuscular Volume 85.7 fL (80-94); Monocyte# 0.17 X10^3/uL; Monocyte% 5.6 % (0-10); NRBC Flagged by Analyzer 0 % (0-5); Neutrophil # 2.32 X10^3/uL (2.7-7.7); Neutrophil % 76.2 % (47-70); POSITIVE DIFFERENTIAL YES; POSITIVE MORPHOLOGY YES; Platelet Count 155 K/mm3 (150-450); RBC Distribution Width CV 20.9 % (11.6-14.6); RBC Distribution Width SD 64.4 fl (35.1-43.9); Red Blood Count 3.28 M/mm3 (4.6-6.2)
[2021-09-06 06:04] LABS: Differential Indicated SCAN CRITERIA MET
[2021-09-06 06:23] LABS: Anion Gap 8 (5-15); BUN 87 mg/dL (7-18); BUN/Creat Ratio 26.2 RATIO (10-20); Calcium,Total 5.8 mg/dL (8.5-10.1); Chloride 96 mmol/L (98-107); Creatinine, Serum 3.32 mg/dL (0.70-1.30); EST Glomerular Filtration Rate 20 mL/min (>60); Est Glom Filt Rate - Afr Amer 24 mL/min (>60); Estimated Creatinine Clearance 20.32 ml/min; Glucose 113 mg/dL (74-106); Potassium 4.4 mmol/L (3.5-5.1); Sodium Level 132 mmol/L (136-145)
[2021-09-06 06:24] LABS: Anisocytosis 1+; Differential Comment SCANNED; Microcytosis 1+; Tear Drop Cell RARE
[2021-09-06] MEDS: Acetaminophen 325 MG Tablet 650 MG PO ×3 (06:45→21:55)
--- NOTE | 2021-09-06 06:56 | EKG12_ITS ---
Test Reason : LOW CALCIUM Blood Pressure : / mmHG Vent. Rate : 056 BPM Atrial Rate : 056 BPM P-R Int : 286 ms QRS Dur : 130 ms QT Int : 582 ms P-R-T Axes : 061 001 241 degrees QTc Int : 561 ms Sinus bradycardia with 1st degree A-V block Non-specific intra-ventricular conduction block T wave abnormality, consider anterolateral ischemia Abnormal ECG Confirmed by SUJEY CHINCHILLA, JOVANI ([id number]), assistant editor SUJATHA FERNÁNDEZ ([id number]) on 09/08/2021 1:30:16 PM Referred By: MARSHALL Confirmed By:SAYRA RM MD
[2021-09-06 07:58] LABS: Magnesium 1.7 mg/dL (1.6-2.6); Phosphorus 5.9 mg/dL (2.5-4.9)
[2021-09-06] MEDS: Arthritis Pain Compound 60 CLICK TUBE TOPICAL ×2 (09:33→21:50)
[2021-09-06] MEDS: 0.9% Normal Saline 1,000 ML 75 ML IV ×2 (09:40→21:56)
[2021-09-06] MEDS: Iron Polysaccharide Complex 150 MG CAPSULE PO (10:04)
[2021-09-06] MEDS: APIXABAN 2.5 MG TABLET PO ×2 (10:04→21:51)
--- NOTE | 2021-09-06 10:57 | PCM.HP.STD ---
HPI - General General Date of Admission: 09/06/21 HPI Narrative ALTON BROWN, is a 71 M who presents with an inability to urinate. He states that he has been drinking water since his previous discharge but feels like he has been gaining more weight and was unable to urinate last night. Initially in the ER it was felt that he might have urinary retention, however Montgomery placed only had about 400 cc of concentrated urine. His renal function is worse than what it was on his previous admission and also when he presented to the ER, he is now in the mid threes. He does have a history of chronic myelofibrosis with abdominal ascites. LFTs are slightly elevated on his previous admissions. Denies any shortness of breath or any recent illness, denies any fevers or chills. States that he is supposed to have an ablation done for his A. fib sometime next week. Continues to have chronic hypocalcemia and hyperphosphatemia. [facility] Medical History Anemia Chronic diastolic (congestive) heart failure Chronic heart failure with preserved ejection fraction (HFpEF) Essential thrombocytosis History of COVID-19 Hyperlipidemia Hypothyroidism Leukopenia Mild dehydration Myelofibrosis Myeloproliferative neoplasm Neutropenic fever Pancytopenia Paroxysmal atrial fibrillation Paroxysmal atrial tachycardia (04/11/21) Right inguinal hernia Splenomegaly Thrombocytopenia Thyroid disease Home Medications allopurinol 300 mg PO DAILY 02/04/18 [History Last Taken 09/05/21] finasteride 5 mg PO QHS 02/04/18 [History Last Taken 09/05/21] gemfibrozil 600 mg PO DAILY 02/04/18 [History Last Taken 09/05/21] alfuzosin 10 mg PO QHS 04/21/20 [History Last Taken 09/05/21] fedratinib 200 mg PO QHS 04/21/20 [History Last Taken 09/05/21] darbepoetin aster in polysorbat 100 mcg/0.5 mL in polysorbate injection syringe 100 mcg SC Q14D 05/15/20 [History Last Taken Unknown] levothyroxine 112 mcg tablet 300 mcg PO DAILY tab 08/13/20 [History Last Taken 09/06/21] fluticasone propionate 1 spray INTRANASAL BID 08/13/21 [History Last Taken 09/05/21] polysaccharide iron complex [Ferrex 150] 150 mg PO DAILYCM 30 Days #30 cap 08/15/21 [Rx Last Taken 09/05/21] calcium carbonate 600 mg PO TID #0 tab 08/20/21 [Rx Last Taken 09/05/21] flecainide 100 mg tablet 100 mg PO Q12H #180 tab 08/27/21 [Rx Last Taken 09/05/21] furosemide 40 mg tablet 40 mg PO BID 08/27/21 [History Last Taken 09/05/21] metoprolol succinate 100 mg tablet,extended release 24 hr 100 mg PO BID tab 08/27/21 [History Last Taken 09/05/21] apixaban 2.5 mg tablet 2.5 mg PO BID #180 tab 09/01/21 [Rx Last Taken 09/05/21] metolazone 2.5 mg tablet 2.5 mg PO .weekly #2 tab 09/01/21 [Rx Last Taken 09/03/21] Allergy/AdvReac Type Severity Reaction Status Date / Time pseudoephedrine AdvReac Severe Itching Verified 09/01/21 00:21 [From [facility]] Family History Mother Heart disease Dementia Diabetes Father COPD (chronic obstructive pulmonary disease) Heart disease Sister Cancer uterine Surgical History H/O cardiac catheterization (12/02/17) H/O prostate biopsy H/O right inguinal hernia repair History of bone marrow biopsy History of colonoscopy (2012) History of radiofrequency ablation procedure for cardiac arrhythmia (01/06/21) History of thyroidectomy History of transurethral resection of prostate (07/2020) Social History household members: spouse Smoking Status: Former smoker alcohol intake: never substance use type: does not use ROS Constitutional Constitutional: Denies chills, fatigue, fever(s) or malaise Eyes Eyes: Denies blurry vision ENT HEENT: Denies headache(s) or nasal discharge Cardiovascular Cardiovascular: Denies chest pain, dyspnea on exertion or syncope Respiratory/Chest Respiratory/Chest: Denies cough, shortness of breath at rest or shortness of breath with exertion Gastrointestinal Gastrointestinal: Denies constipation, diarrhea, nausea or vomiting Genitourinary Genitourinary: Reports difficulty urinating; Denies dysuria Neurologic Neurologic: Denies focal weakness, numbness or tremor(s) Psychiatric Psychiatric: Denies anxiety or depression Vital Signs Vital Signs Vital Signs: 09/06/21 05:01 09/06/21 07:11 09/06/21 08:22 Temperature 97.4 F L 97.4 F L 98.1 F Temperature Source Oral Oral Oral Pulse Rate 53 L 55 L 55 L Respiratory Rate 12 16 16 Blood Pressure 101/60 115/60 105/70 Blood Pressure Mean 73 78 81 Blood Pressure Source Monitor Blood Pressure Position Semi-Fowlers Blood Pressure Location Left Arm Pulse Ox 98 97 96 Oxygen Delivery Method Room Air Room Air Room Air 09/06/21 10:08 Temperature Temperature Source Pulse Rate 55 L Respiratory Rate Blood Pressure 112/70 Blood Pressure Mean Blood Pressure Source Blood Pressure Position Blood Pressure Location Pulse Ox Oxygen Delivery Method Weight Weight: 217 lb 13.067 oz Body Mass Index (BMI) 33.1 Physical Exam Const alert, oriented x3 and no apparent distress General Appearance: cooperative HEENT normocephalic and moist oral mucous membranes Eyes PERRL, EOMs intact bilaterally and conjunctivae normal Neck supple and no JVD Resp normal respiratory effort, no retractions and no use of accessory muscles Auscultation: diminished lung sounds; Negative for crackles, rales, rhonchi or wheezes Cardio regular rate, regular rhythm, S1 normal heart sound, S2 normal heart sound and no murmurs GI soft to palpation and non-tender Inspection: abdominal distention and fluid wave present Palpation: splenomegaly 25 cm Extremity General Extremity: edema bilateral lower extremity Details: moderate; Negative for clubbing or cyanosis Skin no rashes or lesions noted Neuro no focal motor deficits and no sensory deficits noted Psych affect normal Appearance: appropriate Results Lab / Micro Data Result Diagrams: 09/06/21 05:45 09/06/21 05:45 Labs: Laboratory Results - last 24 hr 09/06/21 05:45: WBC 3.0 L, RBC 3.28 L, Hgb 9.0 L, Hct 28.1 L, MCV 85.7, MCH 27.4, MCHC 32.0, RDW Std Deviation 64.4 H, RDW Coeff of Rafael 20.9 H, Plt Count 155, MPV TNP, Immature Gran % (Auto) 0.700, Neut % (Auto) 76.2 H, Lymph % (Auto) 15.8 L, [place] % (Auto) 5.6, Eos % (Auto) 0.7, Baso % (Auto) 1.0, Absolute Neuts (auto) 2.3, Absolute Lymphs (auto) 0.48 L, Nucleated RBC % 0, Differential Comment SCANNED, Diff Path Review May foll, Anisocytosis 1+, Microcytosis 1+, Tear Drop Cells RARE 09/06/21 05:45: Sodium 132 L, Potassium 4.4, Chloride 96 L, Carbon Dioxide 28.0, Anion Gap 8, BUN 87 H, Creatinine 3.32 H, Estim Creat Clear Calc 20.32, Est GFR (MDRD) Af Amer 24 L, Est GFR (MDRD) Non-Af 20 L, BUN/Creatinine Ratio 26.2 H, Glucose 113 H, Calcium 5.8 L* 09/06/21 05:45: Phosphorus 5.9 H, Magnesium 1.7 Assessment & Plan Assessment/Plan (1) Decreased urine output: (2) Hypocalcemia: (3) Acute on chronic kidney failure: (4) Bilateral lower extremity edema: (5) Myelofibrosis: PLAN: 1. Decreased urinary output increased abdominal distention with increased peripheral edema/hypocalcemia/hyperphosphatemia ?We will consult nephrology for assistance with the renal failure. He did have a renal ultrasound on his recent admission which was unremarkable ?Hypocalcemia is related to his hyperphosphatemia but he had been worked up previously for tumor lysis syndrome and was negative ?May need phosphorus binders given his renal failure ?Continue with gentle IV fluid hydration ?We will add a liver profile, his previous ACs and ALTs were elevated may need a GI evaluation and a possible paracentesis given the distention of his abdomen signs 2. HTN/HLD/paroxysmal A. fib ?He did have an echo in March 2021 with an EF of 57% and mild concentric left ventricular hypertrophy with mildly dilated left ventricle, the right ventricle is dilated however the systolic function is normal ?We will continue with his Eliquis but will hold his flecainide, Lasix, metolazone secondary to his renal failure ?Can continue with his metoprolol 3. Chronic myelofibrosis/chronic thrombocytopenia/chronic anemia ?He does have known chronic splenomegaly however he does also have a fluid wave with significant ascites and lower extremity edema ?We will obtain a liver panel and may need to consult GI for possible paracentesis ?Continue with fedratinib and darbepoetin aster ?Continue with iron replacement 4. Hypothyroidism ?Stable ?Continue with Synthroid 5. BPH ?Stable ?Continue with finasteride DVT: Eliquis Charges/Coding Visit Charges OBSV E&M: 48319 Initial observation care L3
[2021-09-06] MEDS: Calcium Carbonate 500 MG Tablet PO ×2 (11:57→16:56)
[2021-09-06 12:05] LABS: AST(SGOT) 9 U/L (15-37); Alanine Aminotransfer ALT/SGPT 10 U/L (16-61); Albumin, Serum 3.3 g/dL (3.2-5.0); Alkaline Phosphatase 45 U/L (45-117); Bilirubin, Direct 0.12 mg/dL (0.00-0.30); Globulin 2.9 g/dL (2.2-4.2); Protein, Total 6.2 g/dL (6.4-8.2)
--- NOTE | 2021-09-06 15:08 | CASEMGMT ---
ROMÁN CM in to complete MURGUIA form with patient. RN GRIS explained MURGUIA form to patient, patient voiced understanding. Patient signed MURGUIA form and filed in chart. Patient provided with copy of signed MURGUIA form. Patient had no further questions or concerns at this time.
[2021-09-06 18:10] LABS: Bacteria 0 SEEN /hpf (None Seen); Mucous, Urine 0 SEEN /hpf (<or=2+); Squamous Epithelial Cells - UA 0 SEEN /hpf (0-5)
[2021-09-06 18:20] LABS: Color, Urine Yellow (Yellow); Glucose, Dipstick Normal (Normal); Ketone-Dipstick Negative (Negative); Leukocyte Esterase-Dipstick 500 /ul (Negative); Nitrite-Dipstick Negative (Negative); Occult Blood-Urine 250 /ul (Negative); Protein-Dipstick 30 mg/dl (Negative); Urine Bilirubin Dipstick Negative (Negative); Urine Clarity Sl. Cloudy (Clear); Urine Urobilinogen Normal (Normal)
[2021-09-06 18:29] LABS: Red Blood Cells-Urine > 100 SEEN /hpf (0-5); White Blood Cells 10-25 SEEN /hpf (0-5)
[2021-09-06 18:36] LABS: Urine Sodium 15 mmol/L (Not Establ.)
--- NOTE | 2021-09-06 18:56 | PCM.CONS.R ---
Assessment & Plan Assessment/Plan (1) CAREY (acute kidney injury): PLAN: -Etiology of CAREY is unclear at this point. -Fractional excretion of sodium is less than 1% which can be consistent with cardiorenal CAREY. The patient does not appear to be volume depleted on physical examination. -Since the cause of CAREY is unclear and the patient has nonspecific symptoms such as arthralgia, I will send serologies (see orders). -We will hold off on rechecking renal ultrasound since it was just completed less than 1 month ago. There was no hydronephrosis seen on renal ultrasound done on 08/18/2021. -I will check urine protein to creatinine ratio. -Okay to continue IV fluid for now since lungs are clear although we must watch volume status closely. He already has lower extremity edema. -Recheck volume status, renal function, electrolytes, and acid-base status again tomorrow. -There is no urgent need for kidney replacement therapy. (2) Chronic kidney disease, stage 3b: PLAN: -Baseline serum creatinine prior to admission and July 2021 was around 1.6 mg/dL. (3) Hypocalcemia: PLAN: -Hypercalcemia appears to be chronic. -The patient is asymptomatic from hypocalcemia without myoclonus or hyperreflexia. -Serum albumin is not very low. Therefore, I will check ionized calcium tomorrow. -We will also trend phosphorus level since high phosphorus can also lead to lower calcium levels. (4) Hyponatremia: PLAN: -Serum sodium is just slightly low at 132 mmol/L today. -There is no worrisome symptoms of hyponatremia such as headache, nausea, or confusion. -We will monitor serum sodium for now. HPI Consult Data Date of Consult: 09/06/21 HPI Narrative Reason for Consultation: Acute kidney injury on chronic kidney disease HPI Narrative: ALTON BROWN, is a 71-year-old man with past history of myelofibrosis, atrial fibrillation, heart failure with preserved ejection fraction (EF 57% on echocardiogram on 04/11/2021), hypothyroidism, and hyperlipidemia. The patient was recently admitted to the hospital between 08/18/2021 until 08/20/2021 with acute kidney injury on chronic kidney disease stage III. The patient had a creatinine of 4.76 mg/dL on 08/18/2021. Renal function gradually improved with volume repletion, and serum creatinine was 3.44 mg/dL on discharge on 08/20/2021. Repeat serum creatinine on 08/25/2021 was 1.96 mg/dL. Serum creatinine on 08/27/2021 was 1.19 mg/dL, and serum creatinine on 09/01/2021 was 2.27 mg/dL. Ultrasound of the kidney done on 08/18/2021 did not show any hydronephrosis. Kidney sizes were normal. Urinalysis on 08/18/2021 did not show significant RBCs or proteinuria. The patient returns to the hospital today with decreasing urine output over the last 2 days despite starting furosemide and metolazone earlier this week. Diuretics were started because of increasing lower extremity edema and abdominal bloating. The patient also complains of bilateral knee pain and swelling which has increased in severity. He did take 2 doses of naproxen 2 days prior to admission. The patient denies chest pain, shortness of breath at rest, nausea, vomiting, anorexia, or diarrhea prior to admission. He does have chronic urinary hesitation. There has been no changes in LUTS until the last 2 days when he noticed decreasing urine output. There has been no gross hematuria or dysuria. The patient denies rash, fever, chill, or night sweats. [facility]MERLY [facility], [facility] Medical History Anemia Chronic diastolic (congestive) heart failure Chronic heart failure with preserved ejection fraction (HFpEF) Essential thrombocytosis History of COVID-19 Hyperlipidemia Hypothyroidism Leukopenia Mild dehydration Myelofibrosis Myeloproliferative neoplasm Neutropenic fever Pancytopenia Paroxysmal atrial fibrillation Paroxysmal atrial tachycardia (04/11/21) Right inguinal hernia Splenomegaly Thrombocytopenia Thyroid disease Home Medications allopurinol 300 mg PO DAILY 02/04/18 [History Last Taken 09/05/21] finasteride 5 mg PO QHS 02/04/18 [History Last Taken 09/05/21] gemfibrozil 600 mg PO DAILY 02/04/18 [History Last Taken 09/05/21] alfuzosin 10 mg PO QHS 04/21/20 [History Last Taken 09/05/21] fedratinib 200 mg PO QHS 04/21/20 [History Last Taken 09/05/21] darbepoetin aster in polysorbat 100 mcg/0.5 mL in polysorbate injection syringe 100 mcg SC Q14D 05/15/20 [History Last Taken 08/22/21] levothyroxine 112 mcg tablet 300 mcg PO DAILY tab 08/13/20 [History Last Taken 09/06/21] fluticasone propionate 1 spray INTRANASAL BID 08/13/21 [History Last Taken 09/05/21] polysaccharide iron complex [Ferrex 150] 150 mg PO DAILYCM 30 Days #30 cap 08/15/21 [Rx Last Taken 09/05/21] calcium carbonate 600 mg PO TID #0 tab 08/20/21 [Rx Last Taken 09/05/21] flecainide 100 mg tablet 100 mg PO Q12H #180 tab 08/27/21 [Rx Last Taken 09/05/21] furosemide 40 mg tablet 40 mg PO BID 08/27/21 [History Last Taken 09/05/21] metoprolol succinate 100 mg tablet,extended release 24 hr 100 mg PO BID tab 08/27/21 [History Last Taken 09/05/21] apixaban 2.5 mg tablet 2.5 mg PO BID #180 tab 09/01/21 [Rx Last Taken 09/05/21] metolazone 2.5 mg tablet 2.5 mg PO .weekly #2 tab 09/01/21 [Rx Last Taken 09/03/21] Allergy/AdvReac Type Severity Reaction Status Date / Time pseudoephedrine AdvReac Severe Itching Verified 09/01/21 00:21 [From [facility]] Family History Mother Heart disease Dementia Diabetes Father COPD (chronic obstructive pulmonary disease) Heart disease Sister Cancer uterine Surgical History H/O cardiac catheterization (12/02/17) H/O prostate biopsy H/O right inguinal hernia repair History of bone marrow biopsy History of colonoscopy (2012) History of radiofrequency ablation procedure for cardiac arrhythmia (01/06/21) History of thyroidectomy History of transurethral resection of prostate (07/2020) Social History household members: spouse Smoking Status: Former smoker alcohol intake: never substance use type: does not use ROS ROS Narrative 04/27 ROS was done. Pertinent positives/negatives were included in HPI. Physical Exam Narrative General: NAD HEENT: Normocephalic, atraumatic. PERRLA, EOMI. Mucous membrane moist without erythema. Hearing is intact. Neck: Supple, no JVD. Lungs: Clear to auscultation bilaterally. Abdomen: Normal bowel sound, firm to palpation, nontender, no guarding or rebound. Extremities: No clubbing or cyanosis. There is 2+ lower extremity edema. Musculoskeletal: Full passive range of motion. No obvious joint swelling. Skin: No rash. Skin is warm and dry. Neurologic: No focal neurologic deficits. Psychiatric: Normal mood and affect. Lab / Micro Data Result Diagrams: 09/06/21 05:45 09/06/21 05:45 Labs: Laboratory Results - last 24 hr 09/06/21 05:45: WBC 3.0 L, RBC 3.28 L, Hgb 9.0 L, Hct 28.1 L, MCV 85.7, MCH 27.4, MCHC 32.0, RDW Std Deviation 64.4 H, RDW Coeff of Rafael 20.9 H, Plt Count 155, MPV TNP, Immature Gran % (Auto) 0.700, Neut % (Auto) 76.2 H, Lymph % (Auto) 15.8 L, [place] % (Auto) 5.6, Eos % (Auto) 0.7, Baso % (Auto) 1.0, Absolute Neuts (auto) 2.3, Absolute Lymphs (auto) 0.48 L, Nucleated RBC % 0, Differential Comment SCANNED, Diff Path Review May foll, Anisocytosis 1+, Microcytosis 1+, Tear Drop Cells RARE 09/06/21 05:45: Sodium 132 L, Potassium 4.4, Chloride 96 L, Carbon Dioxide 28.0, Anion Gap 8, BUN 87 H, Creatinine 3.32 H, Estim Creat Clear Calc 20.32, Est GFR (MDRD) Af Amer 24 L, Est GFR (MDRD) Non-Af 20 L, BUN/Creatinine Ratio 26.2 H, Glucose 113 H, Calcium 5.8 L* 09/06/21 05:45: Phosphorus 5.9 H, Magnesium 1.7 09/06/21 05:45: Total Bilirubin 0.40, Direct Bilirubin 0.12, AST 9 L, ALT 10 L, Alkaline Phosphatase 45, Total Protein 6.2 L, Albumin 3.3, Globulin 2.9 09/06/21 17:50: Urine Color Yellow, Urine Clarity Sl. Cloudy, Urine pH 5.0, Ur Specific [place] 1.020, Urine Protein 30 H, Urine Glucose (UA) Normal, Urine Ketones Negative, Urine Occult Blood 250 H, Urine Nitrite Negative, Urine Bilirubin Negative, Urine Urobilinogen Normal, Ur Leukocyte Esterase 500 H, Urine RBC > 100 SEEN, Urine WBC 10-25 SEEN, Ur Squamous Epith Cells 0 SEEN, Urine Bacteria 0 SEEN, Urine Mucus 0 SEEN 09/06/21 17:50: Ur Random Sodium 15, Urine Creatinine 120.00
[2021-09-06] MEDS: Tamsulosin HCl 0.4 MG Capsule PO (21:51)
[2021-09-06] MEDS: Finasteride 5 MG Tablet PO (21:55)
[2021-09-06] MEDS: 0.9% Saline Lock 10 ML Syringe IV (21:56)
[2021-09-06] MEDS: Metoprolol(XL)Succ 100 MG Tablet PO (22:08)
[2021-09-06 23:01] LABS: Protein, Urine (Random) 51.9 mg/dL (<11.9); Protein:Creat Ratio 588 mg/g CRE (0-200)
[2021-09-07] VITALS (11 sets, daily range): BP systolic 93–112; BP diastolic 70–82; PULSE 101–112; RESP 16; TEMP 36.4–36.9; O2SAT 94–98
[2021-09-07] MEDS: Levothyroxine 150 MCG Tablet 300 MCG PO (05:37)
[2021-09-07 06:39] LABS: Absolute Lymphocyte Count 0.29 X10^3/uL (0.83-4.51); Absolute Neutrophil Count 2.6 X10^3/uL (2.0-7.7); Basophil# 0.02 X10^3/uL; Basophil% 0.6 % (0-1); Eosinophil# 0.02 X10^3/uL; Eosinophils% 0.6 % (0-5); Hematocrit 27.6 % (40-54); Hemoglobin 8.6 g/dL (13.0-16.5); Lymphocyte # 0.29 X10^3/ul (0.83-4.51); Lymphocyte % 9.2 % (19-41); Mean Corp Hgb Conc 31.2 g/dL (32-36); Mean Corpuscular Hgb 27.5 pg (27.0-32.0); Mean Corpuscular Volume 88.2 fL (80-94); Mean Platelet Vol. 10.6 fl (6.2-12.0); Monocyte# 0.24 X10^3/uL; Monocyte% 7.6 % (0-10); NRBC Flagged by Analyzer 0 % (0-5); Neutrophil # 2.57 X10^3/uL (2.7-7.7); Neutrophil % 81.4 % (47-70); POSITIVE DIFFERENTIAL YES; POSITIVE MORPHOLOGY YES; Platelet Count 151 K/mm3 (150-450); RBC Distribution Width CV 20.8 % (11.6-14.6); RBC Distribution Width SD 65.5 fl (35.1-43.9); Red Blood Count 3.13 M/mm3 (4.6-6.2); White Blood Count 3.2 K/mm3 (4.4-11.0)
[2021-09-07 06:45] LABS: Differential Indicated SCAN CRITERIA MET
[2021-09-07 07:23] LABS: AST(SGOT) 7 U/L (15-37); Alanine Aminotransfer ALT/SGPT 13 U/L (16-61); Albumin, Serum 3.1 g/dL (3.2-5.0); Alkaline Phosphatase 43 U/L (45-117); Anion Gap 10 (5-15); BUN 80 mg/dL (7-18); BUN/Creat Ratio 28.7 RATIO (10-20); CPK Total, Creatine Kinase 46 U/L (39-308); Chloride 98 mmol/L (98-107); Creatinine, Serum 2.79 mg/dL (0.70-1.30); EST Glomerular Filtration Rate 24 mL/min (>60); Est Glom Filt Rate - Afr Amer 29 mL/min (>60); Estimated Creatinine Clearance 24.18 ml/min; Glucose 100 mg/dL (74-106); Magnesium 1.8 mg/dL (1.6-2.6); Potassium 3.7 mmol/L (3.5-5.1); Protein, Total 6.1 g/dL (6.4-8.2); Sodium Level 134 mmol/L (136-145)
[2021-09-07] MEDS: Calcium Carbonate 500 MG Tablet PO ×3 (07:58→16:06)
[2021-09-07] MEDS: Iron Polysaccharide Complex 150 MG CAPSULE PO (07:58)
[2021-09-07] MEDS: Allopurinol 300 MG Tablet PO (07:58)
[2021-09-07] MEDS: Metoprolol(XL)Succ 100 MG Tablet PO (07:58)
[2021-09-07] MEDS: APIXABAN 2.5 MG TABLET PO ×2 (07:58→22:46)
[2021-09-07 08:23] LABS: Differential Comment SCANNED
[2021-09-07 08:24] LABS: Anisocytosis 2+; Macrocytosis 1+; Microcytosis 1+
[2021-09-07] MEDS: Arthritis Pain Compound 60 CLICK TUBE TOPICAL ×2 (11:19→22:44)
--- NOTE | 2021-09-07 11:45 | PN.HOSP_ITS ---
Subjective Subjective Doing well, feels little better today. He did have some minor crackles on exam so fluids were discontinued. Objective Data Objective Data Vital Signs: Vital Signs Temp Pulse Resp BP Pulse Ox 97.9 F 101 H 16 112/80 98 09/07/21 07:51 09/07/21 07:58 09/07/21 07:51 09/07/21 07:58 09/07/21 07:51 Oxygen Delivery Method Room Air Weight: 212 lb 1.355 oz Body Mass Index (BMI) 33.1 Intake & Output: Intake and Output for Last 24 Hours 09/06/21 09/07/21 09/08/21 03:59 03:59 03:59 Intake Total 2265 / 2265 1121.25 / 1121.25 Output Total 1550 / 1550 1950 / 1950 Balance 715 / 715 -828.75 / -828.75 Lab / Micro Data Result Diagrams: 09/07/21 05:15 09/07/21 05:15 Labs: Laboratory Results - last 24 hr 09/06/21 05:45: Total Bilirubin 0.40, Direct Bilirubin 0.12, AST 9 L, ALT 10 L, Alkaline Phosphatase 45, Total Protein 6.2 L, Albumin 3.3, Globulin 2.9 09/06/21 17:50: Urine Color Yellow, Urine Clarity Sl. Cloudy, Urine pH 5.0, Ur Specific [place] 1.020, Urine Protein 30 H, Urine Glucose (UA) Normal, Urine Ketones Negative, Urine Occult Blood 250 H, Urine Nitrite Negative, Urine Bilirubin Negative, Urine Urobilinogen Normal, Ur Leukocyte Esterase 500 H, Urine RBC > 100 SEEN, Urine WBC 10-25 SEEN, Ur Squamous Epith Cells 0 SEEN, Urine Bacteria 0 SEEN, Urine Mucus 0 SEEN 09/06/21 17:50: Ur Random Sodium 15, Urine Creatinine 120.00 09/06/21 22:30: U Random Total Protein 51.9 H, Urine Creatinine 88.30, Protein/Creatinin Ratio 588 H 09/07/21 05:15: WBC 3.2 L, RBC 3.13 L, Hgb 8.6 L, Hct 27.6 L, MCV 88.2, MCH 27.5, MCHC 31.2 L, RDW Std Deviation 65.5 H, RDW Coeff of Rafael 20.8 H, Plt Count 151, MPV 10.6, Immature Gran % (Auto) 0.600, Neut % (Auto) 81.4 H, Lymph % (Auto) 9.2 L, [place] % (Auto) 7.6, Eos % (Auto) 0.6, Baso % (Auto) 0.6, Absolute Neuts (auto) 2.6, Absolute Lymphs (auto) 0.29 L, Nucleated RBC % 0, Differential Comment SCANNED, Diff Path Review May foll, Anisocytosis 2+, Microcytosis 1+, Macrocytosis 1+ 09/07/21 05:15: Sodium 134 L, Potassium 3.7, Chloride 98, Carbon Dioxide 26.0, Anion Gap 10, BUN 80 H, Creatinine 2.79 H, Estim Creat Clear Calc 24.18, Est GFR (MDRD) Af Amer 29 L, Est GFR (MDRD) Non-Af 24 L, BUN/Creatinine Ratio 28.7 H, Glucose 100, Calcium 6.0 L*, Phosphorus 5.0 H, Magnesium 1.8, Total Bilirubin 0.40, AST 7 L, ALT 13 L, Alkaline Phosphatase 43 L, Total Creatine Kinase 46, Total Protein 6.1 L, Albumin 3.1 L, Globulin 3.0, Albumin/Globulin Ratio 1.0 Physical Exam Const alert, oriented x3 and no apparent distress General Appearance: cooperative HEENT normocephalic and moist oral mucous membranes Eyes PERRL, EOMs intact bilaterally and conjunctivae normal Neck supple and no JVD Resp normal respiratory effort, no retractions and no use of accessory muscles Auscultation: crackles and diminished lung sounds; Negative for rales, rhonchi or wheezes Cardio regular rate, regular rhythm, S1 normal heart sound, S2 normal heart sound and no murmurs GI soft to palpation and non-tender Inspection: abdominal distention and fluid wave present Palpation: splenomegaly 25 cm Extremity General Extremity: edema bilateral lower extremity Details: moderate; Negative for clubbing or cyanosis Skin no rashes or lesions noted Neuro no focal motor deficits and no sensory deficits noted Psych affect normal Appearance: appropriate Assessment & Plan Assessment/Plan (1) Decreased urine output: (2) Hypocalcemia: (3) Acute on chronic kidney failure: (4) Bilateral lower extremity edema: (5) Myelofibrosis: PLAN: 1. Decreased urinary output increased abdominal distention with increased peripheral edema/hypocalcemia/hyperphosphatemia ?We will consult nephrology for assistance with the renal failure. He did have a renal ultrasound on his recent admission which was unremarkable ?Protein to creatinine ratio was elevated at 588 ?Serologies are pending per nephrology ?Hypocalcemia is related to his hyperphosphatemia but he had been worked up previously for tumor lysis syndrome and was negative ?May need phosphorus binders given his renal failure ?New IV fluids, has some crackles on exam ?LFTs are unremarkable 2. HTN/HLD/paroxysmal A. fib ?He did have an echo in March 2021 with an EF of 57% and mild concentric left ventricular hypertrophy with mildly dilated left ventricle, the right ventricle is dilated however the systolic function is normal ?We will continue with his Eliquis but will hold his flecainide, Lasix, metolazone secondary to his renal failure ?Can continue with his metoprolol 3. Chronic myelofibrosis/chronic thrombocytopenia/chronic anemia ?He does have known chronic splenomegaly however he does also have a fluid wave with significant ascites and lower extremity edema ?LFTs are unremarkable ?Continue with fedratinib and darbepoetin aster ?Continue with iron replacement 4. Hypothyroidism ?Stable ?Continue with Synthroid 5. BPH ?Stable ?Continue with finasteride DVT: Eliquis Charges/Coding Visit Charges OBSV E&M: 37635 Subsequent observation care L2
--- NOTE | 2021-09-07 18:26 | PN.RENAL_ITS ---
Subjective Subjective Following for CAREY on CKD. The patient feels a bit better today. He denies chest pain or shortness of breath at rest. He still has significant abdominal swelling. Lower extremity edema is about the same. Objective Data Objective Data Vital Signs: Vital Signs Temp Pulse Resp BP Pulse Ox 98.2 F 108 H 16 111/82 H 96 09/07/21 16:07 09/07/21 16:07 09/07/21 16:07 09/07/21 16:07 09/07/21 16:07 Oxygen Delivery Method Room Air Weight: 96.2 kg Body Mass Index (BMI) 33.1 Intake & Output: Intake and Output for Last 24 Hours 09/05/21 09/06/21 09/07/21 23:59 23:59 23:59 Intake Total 1870 / 2265 2316.25 / 2316.25 Output Total 1550 / 1550 2950 / 2950 Balance 320 / 715 -633.75 / -633.75 Lab / Micro Data Result Diagrams: 09/07/21 05:15 09/07/21 05:15 Labs: Laboratory Results - last 24 hr 09/06/21 17:50: Urine Color Yellow, Urine Clarity Sl. Cloudy, Urine pH 5.0, Ur Specific [place] 1.020, Urine Protein 30 H, Urine Glucose (UA) Normal, Urine Ketones Negative, Urine Occult Blood 250 H, Urine Nitrite Negative, Urine Bilirubin Negative, Urine Urobilinogen Normal, Ur Leukocyte Esterase 500 H, Urine RBC > 100 SEEN, Urine WBC 10-25 SEEN, Ur Squamous Epith Cells 0 SEEN, Urine Bacteria 0 SEEN, Urine Mucus 0 SEEN 09/06/21 17:50: Ur Random Sodium 15, Urine Creatinine 120.00 09/06/21 22:30: U Random Total Protein 51.9 H, Urine Creatinine 88.30, Protein/Creatinin Ratio 588 H 09/07/21 05:15: WBC 3.2 L, RBC 3.13 L, Hgb 8.6 L, Hct 27.6 L, MCV 88.2, MCH 27.5, MCHC 31.2 L, RDW Std Deviation 65.5 H, RDW Coeff of Rafael 20.8 H, Plt Count 151, MPV 10.6, Immature Gran % (Auto) 0.600, Neut % (Auto) 81.4 H, Lymph % (Auto) 9.2 L, [place] % (Auto) 7.6, Eos % (Auto) 0.6, Baso % (Auto) 0.6, Absolute Neuts (auto) 2.6, Absolute Lymphs (auto) 0.29 L, Nucleated RBC % 0, Differential Comment SCANNED, Diff Path Review May foll, Anisocytosis 2+, Microcytosis 1+, Macrocytosis 1+ 09/07/21 05:15: Sodium 134 L, Potassium 3.7, Chloride 98, Carbon Dioxide 26.0, Anion Gap 10, BUN 80 H, Creatinine 2.79 H, Estim Creat Clear Calc 24.18, Est GFR (MDRD) Af Amer 29 L, Est GFR (MDRD) Non-Af 24 L, BUN/Creatinine Ratio 28.7 H, Glucose 100, Calcium 6.0 L*, Phosphorus 5.0 H, Magnesium 1.8, Total Bilirubin 0.40, AST 7 L, ALT 13 L, Alkaline Phosphatase 43 L, Total Creatine Kinase 46, Total Protein 6.1 L, Albumin 3.1 L, Globulin 3.0, Albumin/Globulin Ratio 1.0 Physical Exam Narrative General: NAD HEENT: Normocephalic, atraumatic. PERRLA, EOMI. Mucous membrane moist without erythema. Neck: Supple, no JVD. Lungs: Clear to auscultation bilaterally. Abdomen: Normal bowel sound, abdomen is distended, firm to palpation, nontender, no guarding or rebound. Extremities: No clubbing or cyanosis. There is 2+ lower extremity edema. Musculoskeletal: Full passive range of motion. No obvious joint swelling. Skin: No rash. Skin is warm and dry. Neurologic: No focal neurologic deficits. Psychiatric: Normal mood and affect. Assessment & Plan Assessment/Plan (1) CAREY (acute kidney injury): PLAN: -Etiology of CAREY is unclear at this point. -Fractional excretion of sodium was less than 1% on 09/06/2021 which can be consistent with cardiorenal CAREY. The patient does not appear to be volume depleted on physical examination. -Urine protein to creatinine ratio is 588 mg/g. Serum albumin is 3.1 g/dL. The patient is not nephrotic. -Since the cause of CAREY is unclear and the patient has nonspecific symptoms such as arthralgia, I have sent serologies (see orders). -We will hold off on rechecking renal ultrasound since it was just completed less than 1 month ago. There was no hydronephrosis seen on renal ultrasound done on 08/18/2021. -Renal function is better. He has been taken off of IV fluid. -Although the patient is total body volume overloaded, I suspect that effective blood volume is still marginal. -Therefore, I will not yet restart diuretic. -Recheck volume status, renal function, electrolytes, and acid-base status again tomorrow. -Awaiting serologies which we have sent. -There is no urgent need for kidney replacement therapy. -The patient may ultimately need a kidney biopsy for more definitive diagnosis. (2) Chronic kidney disease, stage 3b: PLAN: -Baseline serum creatinine prior to admission and July 2021 was around 1.6 mg/dL. (3) Hypocalcemia: PLAN: -Hypocalcemia appears to be chronic. -Phosphorus is slightly high at 5 mg/dL. However, there is no need for phosphorus binder at this point. -Magnesium is normal. -The patient is asymptomatic from hypocalcemia without myoclonus or hyperreflexia. -Calcium level is slightly better today at 6 mg/dL. -Serum albumin is not very low. Ionized calcium is pending. -We will continue to follow calcium and phosphorus level. -I do not see any prior work-up for hypocalcemia on review of record. I will check PTH and vitamin D metabolites. (4) Hyponatremia: PLAN: -Serum sodium is just slightly low at 134 mmol/L today. -There is no worrisome symptoms of hyponatremia such as headache, nausea, or confusion. -We will monitor serum sodium for now.
[2021-09-07] MEDS: Tamsulosin HCl 0.4 MG Capsule PO (22:47)
[2021-09-07] MEDS: Finasteride 5 MG Tablet PO (22:50)
[2021-09-07] MEDS: 0.9% Saline Lock 10 ML Syringe IV (23:00)
[2021-09-08] VITALS (13 sets, daily range): BP systolic 90–113; BP diastolic 64–81; PULSE 70–118; RESP 16–18; TEMP 36.4–36.8; O2SAT 93–100
[2021-09-08] MEDS: Levothyroxine 150 MCG Tablet 300 MCG PO (06:08)
[2021-09-08 06:50] LABS: Absolute Lymphocyte Count 0.55 X10^3/uL (0.83-4.51); Absolute Neutrophil Count 3.4 X10^3/uL (2.0-7.7); Basophil# 0.04 X10^3/uL; Basophil% 0.9 % (0-1); Eosinophil# 0.04 X10^3/uL; Eosinophils% 0.9 % (0-5); Hematocrit 30.8 % (40-54); Hemoglobin 9.6 g/dL (13.0-16.5); Lymphocyte # 0.55 X10^3/ul (0.83-4.51); Lymphocyte % 12.5 % (19-41); Mean Corp Hgb Conc 31.2 g/dL (32-36); Mean Corpuscular Hgb 27.4 pg (27.0-32.0); Mean Platelet Vol. 11.8 fl (6.2-12.0); Monocyte# 0.27 X10^3/uL; Monocyte% 6.2 % (0-10); NRBC Flagged by Analyzer 0 % (0-5); Neutrophil # 3.42 X10^3/uL (2.7-7.7); Neutrophil % 77.9 % (47-70); POSITIVE DIFFERENTIAL YES; POSITIVE MORPHOLOGY YES; Platelet Count 236 K/mm3 (150-450); RBC Distribution Width CV 21.3 % (11.6-14.6); RBC Distribution Width SD 67.6 fl (35.1-43.9); White Blood Count 4.4 K/mm3 (4.4-11.0)
[2021-09-08 06:57] LABS: Differential Indicated SCAN CRITERIA MET
[2021-09-08 07:09] LABS: Anisocytosis 3+
[2021-09-08 07:10] LABS: Tear Drop Cell 1+
[2021-09-08 07:34] LABS: Anion Gap 7 (5-15); BUN 65 mg/dL (7-18); BUN/Creat Ratio 31.6 RATIO (10-20); Calcium,Total 6.1 mg/dL (8.5-10.1); Chloride 106 mmol/L (98-107); Creatinine, Serum 2.06 mg/dL (0.70-1.30); EST Glomerular Filtration Rate 34 mL/min (>60); Est Glom Filt Rate - Afr Amer 41 mL/min (>60); Estimated Creatinine Clearance 32.74 ml/min; Glucose 91 mg/dL (74-106); Potassium 3.9 mmol/L (3.5-5.1); Sodium Level 139 mmol/L (136-145)
--- NOTE | 2021-09-08 07:56 | PCM.PN.HOSP ---
Subjective Subjective Patient is to get short of breath on mild exertion even on going to bathroom or changing position but is comfortable at rest. No PND or orthopnea. Leg swelling has improved. Patient has multiple comorbidities including myelofibrosis and follows oncologist in [facility] Dr. Trejo.Patient states he and on Fedratinib and darbepoetin. Patient also has history of CKD: Nonnephrotic range proteinuria, follows Dr. Watson. He is also scheduled for ablation for A. fib by EP including clinic after he failed ablation in [facility]. Last saw Dr. Guo in August 2019 Objective Data Objective Data Vital Signs: Vital Signs Temp Pulse Resp BP Pulse Ox 98.2 F 109 H 16 100/64 93 09/08/21 05:25 09/08/21 07:00 09/08/21 05:25 09/08/21 05:25 09/08/21 05:25 Oxygen Delivery Method Room Air Weight: 206 lb 12.697 oz Body Mass Index (BMI) 33.1 Intake & Output: Intake and Output for Last 24 Hours 09/06/21 09/07/21 09/08/21 23:59 23:59 23:59 Intake Total 1870 / 2265 2316.25 / 2316.25 Output Total 1550 / 1550 2950 / 3600 1400 / 1400 Balance 320 / 715 -633.75 / -1283.75 -1400 / -1400 Lab / Micro Data Result Diagrams: 09/08/21 05:34 09/08/21 05:34 Labs: Laboratory Results - last 24 hr 09/07/21 05:15: Differential Comment SCANNED, Diff Path Review May , Anisocytosis 2+, Microcytosis 1+, Macrocytosis 1+ 09/08/21 05:34: WBC 4.4, RBC 3.50 L, Hgb 9.6 L, Hct 30.8 L, MCV 88.0, MCH 27.4, MCHC 31.2 L, RDW Std Deviation 67.6 H, RDW Coeff of Rafael 21.3 H, Plt Count 236, MPV 11.8, Immature Gran % (Auto) 1.600 H, Neut % (Auto) 77.9 H, Lymph % (Auto) 12.5 L, [place] % (Auto) 6.2, Eos % (Auto) 0.9, Baso % (Auto) 0.9, Absolute Neuts (auto) 3.4, Absolute Lymphs (auto) 0.55 L, Nucleated RBC % 0, Anisocytosis 3+, Tear Drop Cells 1+ 09/08/21 05:34: Sodium 139, Potassium 3.9, Chloride 106, Carbon Dioxide 26.0, Anion Gap 7, BUN 65 H, Creatinine 2.06 H, Estim Creat Clear Calc 32.74, Est GFR (MDRD) Af Amer 41 L, Est GFR (MDRD) Non-Af 34 L, BUN/Creatinine Ratio 31.6 H, Glucose 91, Calcium 6.1 L* Physical Exam Narrative General: Alert, Oriented x3, Cooperative HEENT: Atraumatic, PERRLA, EOMI, Normocephalic Oral: No Gingival or Mucosal Lesions/ Ulcerations Neck: Supple, No JVD, Negative Carotid Bruits Lungs: Air entry diminished in bilateral lung bases. No crepitation/rhonchi Cardiovascular: Regular rate, Regular Rhythm, Normal S1, Normal S2, No murmurs Abdomen: Massive splenomegaly. Abdominal distention, chronic. Bowel Sounds Present, Soft, Non Tender : No renal angle tenderness. No suprapubic tenderness. Extremities: Mild lateral lower leg and ankle pitting edema, Capillary Refill Less than 3 Seconds Skin: No rashes, No breakdown Musculoskeletal: No Tenderness to Palpation of Joints or Extremities Neurological: Cranial nerves II-XII grossly intact, DTR 2+/4 and Symmetrical, muscle strength 4/5 at major joints Psych/Mental Status: Normal, appropriate. Assessment & Plan Assessment/Plan (1) Decreased urine output: (2) Hypocalcemia: (3) Acute on chronic kidney failure: (4) Bilateral lower extremity edema: (5) Myelofibrosis: PLAN: 1. Dyspnea on minimal exertion, chronic from acute on chronic HFpEF/diastolic heart failure, myelofibrosis with massive splenomegaly: Patient is currently admitted in PCU. Lower extremity edema has improved. Patient has clear lungs on auscultation but is still dyspnea on minimal/mild exertion. Patient saw Dr. Guo in August 27, 2021, office visit reviewed. Last echo in 03/2021 shows mild concentric LVH, normal LV systolic function, EF 57%. RV dilated with systolic function normal. Currently Lasix, metolazone are on hold due to worsening kidney failure. PT and OT ordered 2. CAREY on CKD stage IIIb with history of bladder outlet obstruction due to BPH, status post [place] catheterization: Patient follows with [place] field service manager Dr. Williamson discussed with. This is comanaged with the field service manager. Protein to creatinine ratio elevated 588 mg/g. Serum albumin 3.1 g/dL. Nonnephrotic range of proteinuria. Renal ultrasound recently was unremarkable with no hydronephrosis. Patient has history of BPH and follows Dr. Baxter. Patient had UroLift, less invasive surgery less risk of bleeding but his symptoms recurred. He has irritative and obstructive symptoms of lower urinary tract including hesitancy, intermittent stop and go, difficult to initiate and maintain the urinary stream, and urine retention. Patient required [place] catheterization. Currently having clear urine. Discussed with the urologist Dr. Baxter. Patient on tamsulosin and finasteride. 3. Electrolyte abnormalities: Patient has severe hypocalcemia: Patient has hyperphosphatemia, high at 5 mg/dL. No indication for phosphate binder. Serum magnesium normal. Serum albumin 3.2. Calcium gluconate 1 g IV piggyback given in ER. Patient does not have symptoms of hypocalcemia or tetany. Ionized calcium pending. PTH 31.9 pg/mL, vitamin D 20.8. Vitamin D 125 dihydroxy pending. 4. Paroxysmal A. fib: Patient sinus tachycardia. Patient underwent ablation by EP service in [facility] in December 2020 but was unsuccessful. He is scheduled for repeat ablation in [facility]. Flecainide was held by [facility] when he was admitted in July 2021 due to increased creatinine level. Currently director of cardiac cath lab shows sinus tachycardia at the rate of 115 to 120/min. Restart flecainide 100 mg 1 p.o. now and then 50 mg twice daily, adjusted to the creatinine clearance. Continue Eliquis. 5. Hypertension and dyslipidemia: Blood pressure is controlled. On high intensity statin. 6.. Chronic myelofibrosis/chronic thrombocytopenia/chronic anemia: Patient follows [facility] oncologist Dr. Trejo. The patient on darbepoetin, iron supplement and Fedratinib. Patient had last abdomen pelvis CT in June 2020 which showed severely splenomegaly with heterogeneous appearance and hypodense nodules scattered throughout. He did not show ascites but that CT was more than 1 year ago. Liver profile shows low transaminases. 7. Hypothyroidism on Synthroid. 8. VT prophylaxis on Eliquis. Discontinue if platelet count drops less than 50,000 or hemoglobin less than 8 g% Total time of the visit includes total time spent in counseling or coordination of care, (more than 50% of the total time, spent in obtaining medical information from nurses and other ancillary care providers,explaining to the patient about labs, imaging, diagnosis and management), discussion with consultants, review of labs, echo and imaging is 40 minutes Active Medications Acetaminophen (Acetaminophen 325 Mg Tablet) 650 mg PO Q6H PRN PRN PRN Reason: Pain 1-10 or Fever Last Admin: 09/06/21 21:55 Dose: 650 mg Documented by: Allopurinol (Allopurinol 300 Mg Tablet) 300 mg PO DAILY COUNTS INCLUDE 234 BEDS AT THE [facility] Last Admin: 09/08/21 09:00 Dose: 300 mg Documented by: Apixaban (Apixaban 2.5 Mg Tablet) 2.5 mg PO BID COUNTS INCLUDE 234 BEDS AT THE [facility] Last Admin: 09/08/21 09:00 Dose: 2.5 mg Documented by: Calcium Carbonate (Calcium Carbonate 500 Mg Tablet) 500 mg PO TIDCM COUNTS INCLUDE 234 BEDS AT THE [facility] Last Admin: 09/08/21 11:39 Dose: 500 mg Documented by: Compound Med (Arthritis Pain Compound 60 Click Tube) 1 click TOPICAL BID COUNTS INCLUDE 234 BEDS AT THE [facility]; Protocol Last Admin: 09/08/21 09:02 Dose: Not Given Documented by: Finasteride (Finasteride 5 Mg Tablet) 5 mg PO QHS COUNTS INCLUDE 234 BEDS AT THE [facility] Last Admin: 09/07/21 22:50 Dose: 5 mg Documented by: Flecainide Acetate (Flecainide 100 Mg Tablet) 50 mg PO Q12H COUNTS INCLUDE 234 BEDS AT THE [facility] Fluticasone Propionate (Fluticasone 0.05% 1 [place] Nasal.Sry) 1 spray NASAL BID COUNTS INCLUDE 234 BEDS AT THE [facility] Last Admin: 09/08/21 11:32 Dose: 1 spray Documented by: Sodium Chloride () 250 mls @ 15 mls/hr IV .[id number] PRN PRN Reason: Saline Flush Sodium Chloride () 250 mls @ 15 mls/hr IV .[id number] PRN PRN Reason: Additional IVPB Infusion Levothyroxine Sodium (Levothyroxine 150 Mcg Tablet) 300 mcg PO 0600 COUNTS INCLUDE 234 BEDS AT THE [facility] Last Admin: 09/08/21 06:08 Dose: 300 mcg Documented by: Loratadine (Loratadine 10 Mg Tablet) 5 mg PO DAILY@[facility] Metoprolol Succinate (Metoprolol(Xl)Succ 100 Mg Tablet) 100 mg PO BID COUNTS INCLUDE 234 BEDS AT THE [facility] Last Admin: 09/08/21 09:09 Dose: 100 mg Documented by: Non-Formulary Medication (Darbepoetin Gabriel In Polysorbat) 100 mcg SC Q14D COUNTS INCLUDE 234 BEDS AT THE [facility] Polysaccharide Iron Complex (Iron Polysaccharide Complex 150 Mg Capsule) 150 mg PO QODAY COUNTS INCLUDE 234 BEDS AT THE [facility] Sodium Chloride (0.9% Saline Lock 10 Ml Syringe) 10 - 40 ml IV UD PRN PRN Reason: SALINE FLUSH Last Admin: 09/07/21 23:00 Dose: 10 ml Documented by: Tamsulosin HCl (Tamsulosin Hcl 0.4 Mg Capsule) 0.4 mg PO QHS COUNTS INCLUDE 234 BEDS AT THE [facility] Last Admin: 09/07/21 22:47 Dose: 0.4 mg Documented by: Charges/Coding Visit Charges Inpatient E&M: 48388 Subs Hosp L3
[2021-09-08 08:24] LABS: AST(SGOT) 7 U/L (15-37); Alanine Aminotransfer ALT/SGPT 13 U/L (16-61); Albumin, Serum 3.2 g/dL (3.2-5.0); Alkaline Phosphatase 45 U/L (45-117); Bilirubin, Direct 0.12 mg/dL (0.00-0.30); Globulin 3.2 g/dL (2.2-4.2); Protein, Total 6.4 g/dL (6.4-8.2)
[2021-09-08] MEDS: Allopurinol 300 MG Tablet PO (09:00)
[2021-09-08] MEDS: APIXABAN 2.5 MG TABLET PO ×2 (09:00→21:20)
[2021-09-08] MEDS: Calcium Carbonate 500 MG Tablet PO ×3 (09:00→16:01)
[2021-09-08] MEDS: Iron Polysaccharide Complex 150 MG CAPSULE PO (09:01)
[2021-09-08] MEDS: Metoprolol(XL)Succ 100 MG Tablet PO ×2 (09:09→21:20)
[2021-09-08 09:47] LABS: PTHIN 31.9 pg/mL (18.4-80.1)
[2021-09-08] MEDS: Fluticasone 0.05% 1 SPRAY NASAL.SRY NASAL ×2 (11:32→21:20)
[2021-09-08] MEDS: Flecainide 100 MG Tablet PO (11:33)
[2021-09-08 11:52] LABS: Vitamin D,25 Hydroxy 20.8 ng/mL
[2021-09-08 14:11] LABS: Pathologist Review Reviewed
[2021-09-08 14:14] LABS: Pathologist Review Reviewed
--- NOTE | 2021-09-08 17:40 | CON.PCM.UR_ITS ---
Assessment & Plan Assessment/Plan (1) Chronic kidney disease, stage 3b: (2) Decreased urine output: (3) Urinary retention: HPI Consult Data Date of Consult: 09/08/21 HPI Narrative HPI Narrative: ALTON BROWN, is a 71 M who presents with retention of urine he has multiple medical problems including atrial fibrillation comes into the hospital with worsening renal function was found to have retention of urine has a catheter in place he was due to see me in the office for a follow-up. We will have to consider doing surgery on his prostate but first I have to get clearance from cardiology. He is planning to have a cardioversion done. He is also taking Eliquis for his atrial fibrillation. Explained to the patient that for his prostate surgery he will need a get cardiac clearance and he will need to be off Eliquis. For now I think it will hold off on any surgery and his prostate I can follow-up as an outpatient if any questions please can you call. [facility] Medical History Anemia Chronic diastolic (congestive) heart failure Chronic heart failure with preserved ejection fraction (HFpEF) Essential thrombocytosis History of COVID-19 Hyperlipidemia Hypothyroidism Leukopenia Mild dehydration Myelofibrosis Myeloproliferative neoplasm Neutropenic fever Pancytopenia Paroxysmal atrial fibrillation Paroxysmal atrial tachycardia (04/11/21) Right inguinal hernia Splenomegaly Thrombocytopenia Thyroid disease Home Medications allopurinol 300 mg PO DAILY 02/04/18 [History Last Taken 09/05/21] finasteride 5 mg PO QHS 02/04/18 [History Last Taken 09/05/21] gemfibrozil 600 mg PO DAILY 02/04/18 [History Last Taken 09/05/21] alfuzosin 10 mg PO QHS 04/21/20 [History Last Taken 09/05/21] fedratinib 200 mg PO QHS 04/21/20 [History Last Taken 09/05/21] darbepoetin aster in polysorbat 100 mcg/0.5 mL in polysorbate injection syringe 100 mcg SC Q14D 05/15/20 [History Last Taken 08/22/21] levothyroxine 112 mcg tablet 300 mcg PO DAILY tab 08/13/20 [History Last Taken 09/06/21] fluticasone propionate 1 spray INTRANASAL BID 08/13/21 [History Last Taken 09/05] polysaccharide iron complex [Ferrex 150] 150 mg PO DAILYCM 30 Days #30 cap 08/15/21 [Rx Last Taken 09/05/21] calcium carbonate 600 mg PO TID #0 tab 08/20/21 [Rx Last Taken 09/05/21] flecainide 100 mg tablet 100 mg PO Q12H #180 tab 08/27/21 [Rx Last Taken 09/05/21] furosemide 40 mg tablet 40 mg PO BID 08/27/21 [History Last Taken 09/05/21] metoprolol succinate 100 mg tablet,extended release 24 hr 100 mg PO BID tab 08/27/21 [History Last Taken 09/05/21] apixaban 2.5 mg tablet 2.5 mg PO BID #180 tab 09/01/21 [Rx Last Taken 09/05/21] metolazone 2.5 mg tablet 2.5 mg PO .weekly #2 tab 09/01/21 [Rx Last Taken 09/03/21] Allergy/AdvReac Type Severity Reaction Status Date / Time pseudoephedrine AdvReac Severe Itching Verified 09/01/21 00:21 [From [facility]] Family History Mother Heart disease Dementia Diabetes Father COPD (chronic obstructive pulmonary disease) Heart disease Sister Cancer uterine Surgical History H/O cardiac catheterization (12/02/17) H/O prostate biopsy H/O right inguinal hernia repair History of bone marrow biopsy History of colonoscopy (2012) History of radiofrequency ablation procedure for cardiac arrhythmia (01/06/21) History of thyroidectomy History of transurethral resection of prostate (07/2020) Social History household members: spouse Smoking Status: Former smoker alcohol intake: never substance use type: does not use ROS Constitutional Constitutional: Denies chills, fever(s) or malaise Eyes Eyes: Denies blurry vision or change in vision ENT HEENT: Reports none Cardiovascular Cardiovascular: Denies chest pain or palpitations Respiratory/Chest Respiratory/Chest: Denies cough or shortness of breath with exertion Gastrointestinal Gastrointestinal: Denies abdominal pain, constipation or diarrhea Musculoskeletal Musculoskeletal: Denies back pain, joint stiffness or joint swelling Integumentary Integumentary: Denies dry skin, jaundice, lesions or rash Neurologic Neurologic: Denies confusion, syncope or weakness Psychiatric Psychiatric: Reports none; Denies anxiety or depression Endocrine Endocrinology: Denies excessive sweating, fatigue or flushing Hematologic/Lymphatic Hematologic/Lymphatic: Denies anemia, easy bleeding or easy bruising Physical Exam Const alert and oriented x3 General Appearance: cooperative HEENT normocephalic, head/scalp atraumatic, EAC's normal and TM's normal bilaterally Eyes PERRL and EOMs intact bilaterally Pupil: sluggish Neck no lymphadenopathy, supple and no JVD General: trachea midline Lymph Lymphatic: no lymphadenopathy noted, lymphedema and lymphadenopathy Resp normal respiratory effort, normal air movement and clear to auscultation bilaterally Cardio regular rate, regular rhythm and peripheral pulses 2+ throughout GI soft to palpation, non-tender and non-distended Extremity normal capillary refill and no clubbing, cyanosis or edema General Extremity: no tenderness to palpation of joints or extremities Skin no rashes or lesions noted General Skin Exam: turgor normal Lesions: no lesions Rashes: no rashes Neuro CN's II-XII intact bilaterally Speech: speech normal Motor Exam: strength 5/5 throughout; Negative for general weakness Psych thought process normal, cooperative and affect normal Appearance: appropriate Lab / Micro Data Result Diagrams: 09/08/21 05:34 09/08/21 05:34 Labs: Laboratory Results - last 24 hr 09/06/21 05:45: Diff Path Review Reviewed 09/07/21 05:15: Diff Path Review Reviewed 09/08/21 05:34: WBC 4.4, RBC 3.50 L, Hgb 9.6 L, Hct 30.8 L, MCV 88.0, MCH 27.4, MCHC 31.2 L, RDW Std Deviation 67.6 H, RDW Coeff of Rafael 21.3 H, Plt Count 236, MPV 11.8, Immature Gran % (Auto) 1.600 H, Neut % (Auto) 77.9 H, Lymph % (Auto) 12.5 L, [place] % (Auto) 6.2, Eos % (Auto) 0.9, Baso % (Auto) 0.9, Absolute Neuts (auto) 3.4, Absolute Lymphs (auto) 0.55 L, Nucleated RBC % 0, Anisocytosis 3+, Tear Drop Cells 1+ 09/08/21 05:34: Sodium 139, Potassium 3.9, Chloride 106, Carbon Dioxide 26.0, Anion Gap 7, BUN 65 H, Creatinine 2.06 H, Estim Creat Clear Calc 32.74, Est GFR (MDRD) Af Amer 41 L, Est GFR (MDRD) Non-Af 34 L, BUN/Creatinine Ratio 31.6 H, Glucose 91, Calcium 6.1 L* 09/08/21 05:34: Vitamin D 25-Hydroxy 20.8 09/08/21 05:34: PTH Intact 31.9 09/08/21 05:34: Total Bilirubin 0.40, Direct Bilirubin 0.12, AST 7 L, ALT 13 L, Alkaline Phosphatase 45, Total Protein 6.4, Albumin 3.2, Globulin 3.2
--- NOTE | 2021-09-08 19:29 | PN.RENAL_ITS ---
Subjective Subjective Following for CAREY on CKD. Patient denies CP or nausea. Still has SOB with exertion, abdominal distention and LE edema. Objective Data Objective Data Vital Signs: Vital Signs Temp Pulse Resp BP Pulse Ox 97.5 F L 116 H 18 111/81 H 100 09/08/21 16:00 09/08/21 16:00 09/08/21 16:00 09/08/21 16:00 09/08/21 16:00 Oxygen Delivery Method Room Air Weight: 93.8 kg Body Mass Index (BMI) 33.1 Intake & Output: Intake and Output for Last 24 Hours 09/06/21 09/07/21 09/08/21 23:59 23:59 23:59 Intake Total 1870 / 2265 2316.25 / 2316.25 830 / 830 Output Total 1550 / 1550 2950 / 3600 2725 / 2725 Balance 320 / 715 -633.75 / -1283.75 -1895 / -1895 Lab / Micro Data Result Diagrams: 09/08/21 05:34 09/08/21 05:34 Labs: Laboratory Results - last 24 hr 09/06/21 05:45: Diff Path Review Reviewed 09/07/21 05:15: Diff Path Review Reviewed 09/08/21 05:34: WBC 4.4, RBC 3.50 L, Hgb 9.6 L, Hct 30.8 L, MCV 88.0, MCH 27.4, MCHC 31.2 L, RDW Std Deviation 67.6 H, RDW Coeff of Rafael 21.3 H, Plt Count 236, MPV 11.8, Immature Gran % (Auto) 1.600 H, Neut % (Auto) 77.9 H, Lymph % (Auto) 12.5 L, [place] % (Auto) 6.2, Eos % (Auto) 0.9, Baso % (Auto) 0.9, Absolute Neuts (auto) 3.4, Absolute Lymphs (auto) 0.55 L, Nucleated RBC % 0, Anisocytosis 3+, Tear Drop Cells 1+ 09/08/21 05:34: Sodium 139, Potassium 3.9, Chloride 106, Carbon Dioxide 26.0, Anion Gap 7, BUN 65 H, Creatinine 2.06 H, Estim Creat Clear Calc 32.74, Est GFR (MDRD) Af Amer 41 L, Est GFR (MDRD) Non-Af 34 L, BUN/Creatinine Ratio 31.6 H, Glucose 91, Calcium 6.1 L* 09/08/21 05:34: Vitamin D 25-Hydroxy 20.8 09/08/21 05:34: PTH Intact 31.9 09/08/21 05:34: Total Bilirubin 0.40, Direct Bilirubin 0.12, AST 7 L, ALT 13 L, Alkaline Phosphatase 45, Total Protein 6.4, Albumin 3.2, Globulin 3.2 Physical Exam Narrative General: NAD HEENT: Normocephalic, atraumatic. PERRLA, EOMI. Mucous membrane moist without erythema. Neck: Supple, no JVD. Lungs: Decreased breath sound at bases BL. Abdomen: Normal bowel sound, abdomen is distended, firm to palpation, nontender, no guarding or rebound. Extremities: No clubbing or cyanosis. There is 2+ lower extremity edema. Assessment & Plan Assessment/Plan (1) CAREY (acute kidney injury): PLAN: -Etiology of CAREY is unclear at this point. -Fractional excretion of sodium was less than 1% on 09/06/2021 which can be consistent with cardiorenal CAREY. The patient does not appear to be volume depleted on physical examination. -Urine protein to creatinine ratio is 588 mg/g. Serum albumin is 3.1 g/dL. The patient is not nephrotic. -Since the cause of CAREY is unclear and the patient has nonspecific symptoms such as arthralgia, I have sent serologies (pending). -We will hold off on rechecking renal ultrasound since it was just completed less than 1 month ago. There was no hydronephrosis seen on renal ultrasound done on 08/18/2021. -Renal function is better today. He has been taken off of IV fluid since 09/07/21. -Urine output is >2 L in the last 24h without diuretic, so I will hold off on diuresing the patient today. Will decied on diuretic restart on a day-to-day basis. -Recheck volume status, renal function, electrolytes, and acid-base status again tomorrow. -Awaiting serologies which we have sent. -There is no urgent need for kidney replacement therapy. -The patient may ultimately need a kidney biopsy for more definitive diagnosis. -If renal function is stable or better tomorrow, patient may be discharged from our standpoint with close follow up with Dr. Williamson as outpatient. (2) Chronic kidney disease, stage 3b: PLAN: -Baseline serum creatinine prior to admission and July 2021 was around 1.6 mg/dL. (3) Hypocalcemia: PLAN: -Hypocalcemia appears to be chronic. -Phosphorus is slightly high at 5 mg/dL (stable). However, there is no need for phosphorus binder at this point since phosphorus level is <5.5. -Magnesium is normal. -The patient is asymptomatic from hypocalcemia without myoclonus or hyperreflexia. -Calcium level is slightly better today at 6 mg/dL. -Serum albumin is not very low. Ionized calcium is pending. -We will continue to follow calcium and phosphorus level. -I do not see any prior work-up for hypocalcemia on review of record. I have sent PTH and vitamin D metabolites on 09/07/21 (pending). (4) Hyponatremia: PLAN: -Serum sodium was just slightly low at 134 mmol/L on 09/07/21. -Serum sodium is better today at 139. -There is no worrisome symptoms of hyponatremia such as headache, nausea, or confusion. -We will monitor serum sodium for now.
[2021-09-08] MEDS: Loratadine 10 MG Tablet 5 MG PO (21:19)
[2021-09-08] MEDS: Arthritis Pain Compound 60 CLICK TUBE TOPICAL (21:19)
[2021-09-08] MEDS: Tamsulosin HCl 0.4 MG Capsule PO (21:20)
[2021-09-08] MEDS: Flecainide 100 MG Tablet 50 MG PO (21:20)
[2021-09-08] MEDS: Finasteride 5 MG Tablet PO (21:24)
[2021-09-09] VITALS (21 sets, daily range): BP systolic 96–115; BP diastolic 69–83; PULSE 70–117; RESP 14–22; TEMP 36.6–36.8; O2SAT 93–96
[2021-09-09] MEDS: Levothyroxine 150 MCG Tablet 300 MCG PO (06:14)
[2021-09-09 06:19] LABS: Absolute Lymphocyte Count 0.52 X10^3/uL (0.83-4.51); Absolute Neutrophil Count 2.7 X10^3/uL (2.0-7.7); Basophil# 0.03 X10^3/uL; Basophil% 0.8 % (0-1); Eosinophil# 0.03 X10^3/uL; Eosinophils% 0.8 % (0-5); Hematocrit 29.6 % (40-54); Hemoglobin 8.9 g/dL (13.0-16.5); Lymphocyte # 0.52 X10^3/ul (0.83-4.51); Lymphocyte % 14.6 % (19-41); Mean Corp Hgb Conc 30.1 g/dL (32-36); Mean Corpuscular Hgb 26.9 pg (27.0-32.0); Mean Corpuscular Volume 89.4 fL (80-94); Mean Platelet Vol. 11.1 fl (6.2-12.0); Monocyte# 0.23 X10^3/uL; Monocyte% 6.5 % (0-10); NRBC Flagged by Analyzer 0 % (0-5); Neutrophil # 2.72 X10^3/uL (2.7-7.7); Neutrophil % 76.7 % (47-70); POSITIVE DIFFERENTIAL YES; POSITIVE MORPHOLOGY YES; Platelet Count 208 K/mm3 (150-450); RBC Distribution Width CV 21.4 % (11.6-14.6); RBC Distribution Width SD 69.3 fl (35.1-43.9); Red Blood Count 3.31 M/mm3 (4.6-6.2); White Blood Count 3.6 K/mm3 (4.4-11.0)
[2021-09-09 06:21] LABS: Differential Indicated SCAN CRITERIA MET
[2021-09-09 06:36] LABS: Anisocytosis 2+
[2021-09-09 06:53] LABS: Phosphorus 3.3 mg/dL (2.5-4.9)
[2021-09-09 07:16] LABS: Anion Gap 6 (5-15); BUN 57 mg/dL (7-18); BUN/Creat Ratio 36.1 RATIO (10-20); Calcium,Total 6.2 mg/dL (8.5-10.1); Chloride 106 mmol/L (98-107); Creatinine, Serum 1.58 mg/dL (0.70-1.30); EST Glomerular Filtration Rate 46 mL/min (>60); Est Glom Filt Rate - Afr Amer 56 mL/min (>60); Estimated Creatinine Clearance 42.69 ml/min; Glucose 88 mg/dL (74-106); Magnesium 1.9 mg/dL (1.6-2.6); Potassium 4.1 mmol/L (3.5-5.1); Sodium Level 139 mmol/L (136-145)
--- NOTE | 2021-09-09 08:22 | DCINST_ITS ---
Discharge Instructions Diet Discharge Diet: Low fat / Low cholesterol and 2000 Calorie Control Diet Activity Discharge Activity: Return to Normal Activity and May Not Drive Lifting Restrictions: Right leg prosthesis Dressing / Incision Call your doctor if you observe: Fever of 101 or Higher, Coldness, Increased Pain, Numbness or Tingling, Change in Color, Inability to urinate, Inability to have a bowel movement, Shortness of breath, Dizziness, Fainting spells, Swelling in the ankles, Chest pain, Prolonged hiccupping, Increased palpitations (irregular heartbeat), Calf discomfort and Uncontrolled pain Follow Up Care Test Results: Test results from this visit will be discussed in further detail at your follow-up appointment, if applicable. Discharge Plan Admission Admit Date/Time: 09/06/21 07:09 Attending Provider: Miguel Wills Primary Care Provider: Diogenes Suarez Consulting Providers: Kanwal Williamson ; Bahman Baxter ; He Shepard Discharge Orders/Prescriptions Prescriptions: No Action levothyroxine 112 mcg tablet 300 mcg PO DAILY RF: 0 metoprolol succinate 100 mg tablet extended release 24 hr 100 mg PO BID RF: 0 furosemide [Lasix] 40 mg tablet 40 mg PO BID RF: 0 flecainide 100 mg tablet 100 mg PO Q12H Qty: 180 RF: 3 gemfibrozil 600 MG tablet 600 mg PO DAILY RF: 0 allopurinol 300 MG tablet 300 mg PO DAILY RF: 0 finasteride 5 MG tablet 5 mg PO QHS RF: 0 alfuzosin 10 MG tablet extended release 24 hr 10 mg PO QHS RF: 0 fedratinib 100 MG capsule 200 mg PO QHS RF: 0 darbepoetin aster in polysorbat 100 mcg/0.5 mL syringe 100 mcg SC Q14D RF: 0 fluticasone propionate 50 mcg/actuation [place],Suspension 1 spray INTRANASAL BID RF: 0 polysaccharide iron complex [Ferrex 150] 150 mg iron Capsule 150 mg PO DAILYCM 30 Days Qty: 30 RF: 0 calcium carbonate 600 MG tablet 600 mg PO TID Qty: 0 RF: 0 metolazone 2.5 mg tablet 2.5 mg PO .weekly Qty: 2 RF: 0 apixaban 2.5 mg tablet 2.5 mg PO BID Qty: 180 RF: 3 Referrals / Follow Up: Diogenes Suarez DO [Primary Care Provider] -
--- NOTE | 2021-09-09 08:22 | PCM.DC.SUM ---
Providers Date of Admission: 09/06/21 Primary Care Physician: Dr. Diogenes Suarez, DO Consultations 09/06/21 10:27 Consult: Nephrology Routine Consulting Provider: Kanwal Williamson Reason for Consult: Renal failure EMERGENT Consult: No Notified: Yes Date Notified: 09/06/21 Time Notified: 10:27 Method of Notification: Answering Service 09/08/21 17:29 Consult: Urology Routine Consulting Provider: Bahman Baxter Reason for Consult: BPH WITH RUBALCAVA, on [place] EMERGENT Consult: No Notified: Yes Date Notified: 09/08/21 Time Notified: 14:30 Method of Notification: Verbal Reason For Visit: CAREY Diagnosis Discharge Diagnosis (1) CAREY (acute kidney injury): Status: Acute Code(s): N17.9 - Acute kidney failure, unspecified (2) Chronic kidney disease, stage 3b: Status: Acute Code(s): N18.32 - Chronic kidney disease, stage 3b (3) Hypocalcemia: Status: Acute Code(s): E83.51 - Hypocalcemia (4) Hyponatremia: Status: Acute Code(s): E87.1 - Hypo-osmolality and hyponatremia Medications at Discharge Home Medications allopurinol 300 mg PO DAILY 02/04/18 finasteride 5 mg PO QHS 02/04/18 gemfibrozil 600 mg PO DAILY 02/04/18 alfuzosin 10 mg PO QHS 04/21/20 fedratinib 200 mg PO QHS 04/21/20 darbepoetin aster in polysorbat 100 mcg/0.5 mL in polysorbate injection syringe 100 mcg SC Q14D 05/15/20 levothyroxine 112 mcg tablet 300 mcg PO DAILY tab 08/13/20 fluticasone propionate 1 spray INTRANASAL BID 08/13/21 polysaccharide iron complex [Ferrex 150] 150 mg PO DAILYCM 30 Days #30 cap 08/15/21 calcium carbonate 600 mg PO TID #0 tab 08/20/21 flecainide 100 mg tablet 100 mg PO Q12H #180 tab 08/27/21 furosemide 40 mg tablet 40 mg PO BID 08/27/21 metoprolol succinate 100 mg tablet,extended release 24 hr 100 mg PO BID tab 08/27/21 apixaban 2.5 mg tablet 2.5 mg PO BID #180 tab 09/01/21 metolazone 2.5 mg tablet 2.5 mg PO .weekly #2 tab 09/01/21 Physical Exam Narrative General: Alert, Oriented x3, Cooperative HEENT: Atraumatic, PERRLA, EOMI, Normocephalic Oral: No Gingival or Mucosal Lesions/ Ulcerations Neck: Supple, No JVD, Negative Carotid Bruits Lungs: Air entry diminished in bilateral lung bases. No crepitation/rhonchi Cardiovascular: Regular rate, Regular Rhythm, Normal S1, Normal S2, No murmurs Abdomen: Massive splenomegaly. Abdominal distention, chronic. Bowel Sounds Present, Soft, Non Tender : No renal angle tenderness. No suprapubic tenderness. Extremities: Mild lateral lower leg and ankle pitting edema, Capillary Refill Less than 3 Seconds Skin: No rashes, No breakdown Musculoskeletal: No Tenderness to Palpation of Joints or Extremities Neurological: Cranial nerves II-XII grossly intact, DTR 2+/4 and Symmetrical, muscle strength 4/5 at major joints Psych/Mental Status: Normal, appropriate. Weight / BMI Weight Weight: 205 lb 7.533 oz Body Mass Index (BMI) 33.1 ABG / Lab / Microbiology Data Result Diagrams: 09/09/21 05:45 09/09/21 05:45 Laboratory: Laboratory Results - last 24 hr 09/06/21 05:45: Diff Path Review Reviewed 09/07/21 05:15: Diff Path Review Reviewed 09/08/21 05:34: Vitamin D 25-Hydroxy 20.8 09/08/21 05:34: PTH Intact 31.9 09/08/21 05:34: Total Bilirubin 0.40, Direct Bilirubin 0.12, AST 7 L, ALT 13 L, Alkaline Phosphatase 45, Total Protein 6.4, Albumin 3.2, Globulin 3.2 09/09/21 05:45: WBC 3.6 L, RBC 3.31 L, Hgb 8.9 L, Hct 29.6 L, MCV 89.4, MCH 26.9 L, MCHC 30.1 L, RDW Std Deviation 69.3 H, RDW Coeff of Rafael 21.4 H, Plt Count 208, MPV 11.1, Immature Gran % (Auto) 0.600, Neut % (Auto) 76.7 H, Lymph % (Auto) 14.6 L, [place] % (Auto) 6.5, Eos % (Auto) 0.8, Baso % (Auto) 0.8, Absolute Neuts (auto) 2.7, Absolute Lymphs (auto) 0.52 L, Nucleated RBC % 0, Diff Path Review May foll, Anisocytosis 2+ 09/09/21 05:45: Sodium 139, Potassium 4.1, Chloride 106, Carbon Dioxide 27.0, Anion Gap 6, BUN 57 H, Creatinine 1.58 H, Estim Creat Clear Calc 42.69, Est GFR (MDRD) Af Amer 56 L, Est GFR (MDRD) Non-Af 46 L, BUN/Creatinine Ratio 36.1 H, Glucose 88, Calcium 6.2 L*, Magnesium 1.9 09/09/21 05:45: Phosphorus 3.3 Discharge Plan Admission Admit Date/Time: 09/06/21 07:09 Attending Provider: Miguel Wills Primary Care Provider: Diogenes Suarez Consulting Providers: Kanwal Williamson ; Bahman Baxter Discharge Orders/Prescriptions Prescriptions: No Action levothyroxine 112 mcg tablet 300 mcg PO DAILY RF: 0 metoprolol succinate 100 mg tablet extended release 24 hr 100 mg PO BID RF: 0 furosemide [Lasix] 40 mg tablet 40 mg PO BID RF: 0 flecainide 100 mg tablet 100 mg PO Q12H Qty: 180 RF: 3 gemfibrozil 600 MG tablet 600 mg PO DAILY RF: 0 allopurinol 300 MG tablet 300 mg PO DAILY RF: 0 finasteride 5 MG tablet 5 mg PO QHS RF: 0 alfuzosin 10 MG tablet extended release 24 hr 10 mg PO QHS RF: 0 fedratinib 100 MG capsule 200 mg PO QHS RF: 0 darbepoetin aster in polysorbat 100 mcg/0.5 mL syringe 100 mcg SC Q14D RF: 0 fluticasone propionate 50 mcg/actuation [place],Suspension 1 spray INTRANASAL BID RF: 0 polysaccharide iron complex [Ferrex 150] 150 mg iron Capsule 150 mg PO DAILYCM 30 Days Qty: 30 RF: 0 calcium carbonate 600 MG tablet 600 mg PO TID Qty: 0 RF: 0 metolazone 2.5 mg tablet 2.5 mg PO .weekly Qty: 2 RF: 0 apixaban 2.5 mg tablet 2.5 mg PO BID Qty: 180 RF: 3 Referrals / Follow Up: Diogenes Suarez DO [Primary Care Provider] -
[2021-09-09] MEDS: Flecainide 100 MG Tablet 50 MG PO ×2 (08:23→11:28)
[2021-09-09] MEDS: Calcium Carbonate 500 MG Tablet PO ×3 (08:23→17:15)
[2021-09-09] MEDS: Allopurinol 300 MG Tablet PO (08:23)
[2021-09-09] MEDS: Metoprolol(XL)Succ 100 MG Tablet PO ×2 (08:24→19:54)
[2021-09-09] MEDS: APIXABAN 2.5 MG TABLET PO ×2 (08:24→19:54)
--- NOTE | 2021-09-09 09:47 | PN.RENAL_ITS ---
Subjective Subjective Following for CAREY on CKD Patient denies any complaints today. Reports good appetite. Denies any nausea. Objective Data Objective Data Vital Signs: Vital Signs Temp Pulse Resp BP Pulse Ox 97.9 F 112 H 14 102/73 95 09/09/21 09:10 09/09/21 09:10 09/09/21 09:10 09/09/21 09:10 09/09/21 09:10 Oxygen Delivery Method Room Air Weight: 93.2 kg Body Mass Index (BMI) 33.1 Intake & Output: Intake and Output for Last 24 Hours 09/07/21 09/08/21 09/09/21 23:59 23:59 23:59 Intake Total 2316.25 / 2316.25 830 / 1070 480 / 480 Output Total 2950 / 3600 2725 / 3275 950 / 950 Balance -633.75 / -1283.75 -1895 / -2205 -470 / -470 Lab / Micro Data Result Diagrams: 09/09/21 05:45 09/09/21 05:45 Labs: Laboratory Results - last 24 hr 09/06/21 05:45: Diff Path Review Reviewed 09/07/21 05:15: Diff Path Review Reviewed 09/08/21 05:34: Vitamin D 25-Hydroxy 20.8 09/08/21 05:34: PTH Intact 31.9 09/09/21 05:45: WBC 3.6 L, RBC 3.31 L, Hgb 8.9 L, Hct 29.6 L, MCV 89.4, MCH 26.9 L, MCHC 30.1 L, RDW Std Deviation 69.3 H, RDW Coeff of Rafael 21.4 H, Plt Count 208, MPV 11.1, Immature Gran % (Auto) 0.600, Neut % (Auto) 76.7 H, Lymph % (Auto) 14.6 L, [place] % (Auto) 6.5, Eos % (Auto) 0.8, Baso % (Auto) 0.8, Absolute Neuts (auto) 2.7, Absolute Lymphs (auto) 0.52 L, Nucleated RBC % 0, Diff Path Review May foll, Anisocytosis 2+ 09/09/21 05:45: Sodium 139, Potassium 4.1, Chloride 106, Carbon Dioxide 27.0, Anion Gap 6, BUN 57 H, Creatinine 1.58 H, Estim Creat Clear Calc 42.69, Est GFR (MDRD) Af Amer 56 L, Est GFR (MDRD) Non-Af 46 L, BUN/Creatinine Ratio 36.1 H, Glucose 88, Calcium 6.2 L*, Magnesium 1.9 09/09/21 05:45: Phosphorus 3.3 Physical Exam Narrative General: NAD HEENT: Normocephalic, atraumatic. Neck: Supple, no JVD. Lungs: Decreased breath sounds posterior bases. No rales or rhonchi Abdomen: Normal bowel sound, abdomen is distended, firm to palpation, nontender, no guarding or rebound. Extremities: There is 2+ lower extremity edema. Edema noted to b/l thighs. B/L [place] hose on from feet to knees. [place] with clear urine in bag Assessment & Plan Assessment/Plan (1) CAREY (acute kidney injury): PLAN: -Etiology of CAREY is unclear at this point. -Fractional excretion of sodium was less than 1% on 09/06/2021 which can be consistent with cardiorenal CAREY. The patient does not appear to be volume depleted on physical examination. -Urine protein to creatinine ratio is 588 mg/g. Serum albumin is 3.1 g/dL. The patient is not nephrotic. -Since the cause of CAREY is unclear and the patient has nonspecific symptoms such as arthralgia, ordered serologies (pending). -We will hold off on rechecking renal ultrasound since it was just completed less than 1 month ago. There was no hydronephrosis seen on renal ultrasound done on 08/18/2021. -Renal function is better today. SCr peaked 3.32mg/dL and today SCr 1.58mg/dL. He has been taken off of IV fluids since 09/07/21. -Urine output is >2 L in 24h without diuretic. Cumulative I&O patient is net negative 2.6L. Weight 93kg. Recommend strict I&O and daily weights. Also reviewed with patient recommend no more than 2L fluid intake in 24hrs (patient states at home intake ~2.4L per day). - Patient is edematous, renal function has improved, started on lasix 40mg IV bid today (Home diuretic regimen lasix 40mg bid and metolazone once weekly). -Recheck volume status, renal function, electrolytes, and acid-base status again tomorrow. -Awaiting serologies which we have sent. -There is no urgent need for kidney replacement therapy. -The patient may ultimately need a kidney biopsy for more definitive diagnosis. - bps acceptable on toprol (2) Chronic kidney disease, stage 3b: PLAN: -Baseline serum creatinine prior to admission in July 2021 was around 1.6 mg/dL. - follows with Dr. Williamson (3) Hypocalcemia: PLAN: -Hypocalcemia appears to be chronic. -Phosphorus is slightly high at 5 mg/dL (stable). However, there is no need for phosphorus binder at this point since phosphorus level is <5.5. -Magnesium is normal. -The patient is asymptomatic from hypocalcemia without myoclonus or hyp erreflexia. -Calcium level is slightly better today at 6.2 mg/dL. -Serum albumin is not very low at 3.2. Ionized calcium is pending. -We will continue to follow calcium and phosphorus level. -I do not see any prior work-up for hypocalcemia on review of record. Ordered: PTH 31.9, Vitamin D 25 hydroxy 20.8 and vitamin D 1,25 pending. (4) Hyponatremia: PLAN: -Serum sodium was just slightly low at 134 mmol/L on 09/07/21. -Serum sodium has improved to 139. -There is no worrisome symptoms of hyponatremia such as headache, nausea, or confusion. -We will monitor serum sodium for now. - discussed with Dr. Wills
[2021-09-09] MEDS: Furosemide 40 MG/4 ML Vial IV ×2 (10:32→17:15)
[2021-09-09] MEDS: 0.9% Saline Lock 10 ML Syringe IV ×2 (10:33→17:15)
--- NOTE | 2021-09-09 10:45 | ECHOCS_ITS ---
Reason For Study: PAF, CHF, edema Procedure This was a 2D Doppler, Color Flow transthoracic echocardiogram. The study was technically difficult. Exam performed portable in patient room. Left Ventricle Normal LV size. Moderate segmental systolic dysfunction (see wall motion). The estimated ejection fraction is 40 %. Unable to assess diastolic dysfunction. Anterio-Basal: Hypokinetic. Infero-Basal: Hypokinetic. Basal inferoseptal: Akinetic. Basal anteroseptal: Akinetic. Mid-Anterior : Hypokinetic. Mid-Posterior: Hypokinetic. Mid-Inferior: Akinetic. Mid-inferoseptal : Akinetic. Mid-anteroseptal : Akinetic. Anterior [place] : Hypokinetic. Inferior [place] : Hypokinetic. Septal [place] : Hypokinetic. Right Ventricle Mildly dilated right ventricle. Mild global right ventricular systolic dysfunction. Atria The left atrium is moderately enlarged. The right atrium is moderately enlarged. No doppler evidence for ASD. Mitral Valve There is mild mitral annular calcification. Extension of the mitral annular calcification onto the base of the posterior mitral valve leaflet. Mild diffuse mitral valve thickening. Mild (1+) mitral valve insufficiency. Tricuspid Valve Normal tricuspid valve. Moderately severe (3+) tricuspid valve insufficiency. Right ventricular systolic pressure estimated to be 55 mmHg. Aortic Valve Trisinus/trileaflet aortic valve. Mild diffuse aortic valve thickening. Mild focal aortic valve calcification. Trivial aortic valve insufficiency. Pulmonic Valve The pulmonic valve is not well visualized. Great Vessels Borderline enlarged aortic root. Calcified aortic root. Pericardium/Pleural No pericardial effusion. MMode/2D Measurements & Calculations LVIDd: 5.4 cm IVSd: 1.3 cm Ao root diam: 3.9 cm LVIDs: 4.4 cm LVPWd: 1.0 cm RVDd: 4.9 cm FS: 19.2 % LAV(MOD-bp): 92.4 ml LVAd ap4: 37.4 cm2 LVAd ap2: 40.5 cm2 LAV(MOD-bp) Indexed: 44.7 ml/m2 LVLd ap4: 8.4 cm LVLd ap2: 8.5 cm LAV(MOD-sp2): 76.1 ml EDV(MOD-sp4): 137.9 ml EDV(MOD-sp2): 161.8 ml LAV(MOD-sp4): 99.8 ml EDV(sp4-el): 141.9 ml EDV(sp2-el): 163.6 ml LVAs ap4: 27.7 cm2 LVAs ap2: 29.1 cm2 LVLs ap4: 8.1 cm LVLs ap2: 8.1 cm ESV(MOD-sp4): 78.6 ml ESV(MOD-sp2): 87.9 ml ESV(sp4-el): 80.5 ml ESV(sp2-el): 88.8 ml EF(MOD-sp4): 43.0 % EF(MOD-sp2): 45.7 % EF(sp4-el): 43.2 % SV(MOD-sp4): 59.3 ml SV(MOD-sp2): 73.9 ml SV(sp4-el): 61.3 ml LA dimension(2D): 4.5 cm LA A4 area: 28.6 cm2 RA A4 area: 30.1 cm2 Doppler Measurements & Calculations MV E max donny: 112.9 cm/sec Ao V2 max: 150.1 cm/sec LV V1 max: 112.7 cm/sec Ao max P.0 mmHg LV V1 max P.1 mmHg TR max donny: 317.7 cm/sec TR max P.4 mmHg ECHO/Echo Complete W/ Contrast Interpretation Summary The study was technically difficult. Moderate segmental systolic dysfunction (see wall motion). The estimated ejection fraction is 40 %. Mildly dilated right ventricle. Mild global right ventricular systolic dysfunction. The left atrium is moderately enlarged. The right atrium is moderately enlarged. There is mild mitral annular calcification. Extension of the mitral annular calcification onto the base of the posterior mi tral valve leaflet. Mild diffuse mitral valve thickening. Mild (1+) mitral valve insufficiency. Moderately severe (3+) tricuspid valve insufficiency. Mild diffuse aortic valve thickening. Mild focal aortic valve calcification. Trivial aortic valve insufficiency. Calcified aortic root. Right ventricular systolic pressure estimated to be 55 mmHg. Unable to assess diastolic dysfunction. Ordering Physician: Miguel Wills Referring Physician: Diogenes Suarez Performed By: Renee Brito RDCS
--- NOTE | 2021-09-09 11:53 | PCM.PN.HOSP ---
Subjective Subjective Seen and examined. Follow-up for multiple issues including dyspnea on mild exertion, kidney failure, heart failure, paroxysmal A. fib/sinus tachycardia. Patient with increased swelling in the lower extremity up to the knee and thigh. Dyspnea on exertion still present. Sinus tachycardia on monitor technician. Boat Cleaner called me in the morning. Discussed with the car barn laborer. Objective Data Objective Data Vital Signs: Vital Signs Temp Pulse Resp BP Pulse Ox 97.9 F 113 H 14 102/73 95 09/09/21 09:10 09/09/21 11:00 09/09/21 09:10 09/09/21 09:10 09/09/21 09:10 Oxygen Delivery Method Room Air Weight: 205 lb 7.533 oz Body Mass Index (BMI) 33.1 Intake & Output: Intake and Output for Last 24 Hours 09/07/21 09/08/21 09/09/21 23:59 23:59 23:59 Intake Total 2316.25 / 2316.25 830 / 1070 480 / 480 Output Total 2950 / 3600 2725 / 3275 1650 / 1650 Balance -633.75 / -1283.75 -1895 / -2205 -1170 / -1170 Lab / Micro Data Result Diagrams: 09/09/21 05:45 09/09/21 05:45 Labs: Laboratory Results - last 24 hr 09/06/21 05:45: Diff Path Review Reviewed 09/07/21 05:15: Diff Path Review Reviewed 09/09/21 05:45: WBC 3.6 L, RBC 3.31 L, Hgb 8.9 L, Hct 29.6 L, MCV 89.4, MCH 26.9 L, MCHC 30.1 L, RDW Std Deviation 69.3 H, RDW Coeff of Rafael 21.4 H, Plt Count 208, MPV 11.1, Immature Gran % (Auto) 0.600, Neut % (Auto) 76.7 H, Lymph % (Auto) 14.6 L, [place] % (Auto) 6.5, Eos % (Auto) 0.8, Baso % (Auto) 0.8, Absolute Neuts (auto) 2.7, Absolute Lymphs (auto) 0.52 L, Nucleated RBC % 0, Diff Path Review May foll, Anisocytosis 2+ 09/09/21 05:45: Sodium 139, Potassium 4.1, Chloride 106, Carbon Dioxide 27.0, Anion Gap 6, BUN 57 H, Creatinine 1.58 H, Estim Creat Clear Calc 42.69, Est GFR (MDRD) Af Amer 56 L, Est GFR (MDRD) Non-Af 46 L, BUN/Creatinine Ratio 36.1 H, Glucose 88, Calcium 6.2 L*, Magnesium 1.9 09/09/21 05:45: Phosphorus 3.3 Physical Exam Narrative General: Alert, Oriented x3, Cooperative HEENT: Atraumatic, PERRLA, EOMI, Normocephalic Oral: No Gingival or Mucosal Lesions/ Ulcerations Neck: Supple, No JVD, Negative Carotid Bruits Lungs: Air entry diminished in bilateral lung bases. No crepitation/rhonchi Cardiovascular:Sinus rhythm, PVCs on monitor technician. Normal S1, Normal S2, No murmurs Abdomen: Massive splenomegaly. Abdominal distention, chronic. Bowel Sounds Present, Soft, Non Tender : No renal angle tenderness. No suprapubic tenderness. Extremities: Increasing pitting edema up to mid thigh, bilateral. Capillary Refill Less than 3 Seconds Skin: No rashes, No breakdown Musculoskeletal: No Tenderness to Palpation of Joints or Extremities Neurological: Cranial nerves II-XII grossly intact, DTR 2+/4 and Symmetrical, muscle strength 4/5 at major joints Psych/Mental Status: Normal, appropriate. Assessment & Plan Assessment/Plan (1) CAREY (acute kidney injury): (2) Chronic kidney disease, stage 3b: (3) Hypocalcemia: (4) Hyponatremia: PLAN: 1. Dyspnea on minimal exertion, chronic from acute on chronic HFpEF/diastolic heart failure, myelofibrosis with massive splenomegaly: Patient is currently admitted in PCU. Lower extremity edema has improved. Patient has clear lungs on auscultation but is still dyspnea on minimal/mild exertion. Patient saw Dr. Guo in August 27, 2021, office visit reviewed. Last echo in 03/2021 shows mild concentric LVH, normal LV systolic function, EF 57%. RV dilated with systolic function normal. Currently Lasix, metolazone are on hold due to worsening kidney failure. 09/09: Plunger Scoop Operator consult at the request of director media. 2D echo repeat was done. Patient has increased in the lower extremity edema and Lasix 40 mg IV twice daily started. Heart failure core measures including intake and output, fluid restriction less than 1500 mL, daily weight monitoring, kidney and electrolytes monitoring. 2D echo shows EF 40%, mildly dilated RV with global RV systolic dysfunction. LA, RA moderately enlarged. 1+ MR, moderately severe TR, RVSP 55 mg suggestive of moderately high pulmonary hypertension. 2. CAREY on CKD stage IIIb with history of bladder outlet obstruction due to BPH, status post [place] catheterization: Patient follows with [place] director media Dr. Williamson discussed with. This is comanaged with the director media. Protein to creatinine ratio elevated 588 mg/g. Serum albumin 3.1 g/dL. Nonnephrotic range of proteinuria. Renal ultrasound recently was unremarkable with no hydronephrosis. Patient has history of BPH and follows Dr. Baxter. Patient had UroLift, less invasive surgery less risk of bleeding but his symptoms recurred. He has irritative and obstructive symptoms of lower urinary tract including hesitancy, intermittent stop and go, difficult to initiate and maintain the urinary stream, and urine retention. Patient required [place] catheterization. Currently having clear urine. Discussed with the urologist Dr. Baxter. Patient on tamsulosin and finasteride. 09/09: Improvement in creatinine 1.55 Lasix resumed as mentioned above. Patient seen by urologist and advised to follow-up with office post surgery after ablation treatment and car barn laborer clearance. 3. Electrolyte abnormalities: Patient has severe hypocalcemia: Patient has hyperphosphatemia, high at 5 mg/dL. No indication for phosphate binder. Serum magnesium normal. Serum albumin 3.2. Calcium gluconate 1 g IV piggyback given in ER. Patient does not have symptoms of hypocalcemia or tetany. Ionized calcium pending. PTH 31.9 pg/mL, vitamin D 20.8. Vitamin D 125 dihydroxy pending. 09/09: Mild hypokalemia, potassium is getting replaced. Magnesium and phosphorus level normal. Calcium level chronically low even after replacement. Does not have hypocalcemic symptoms. 4. Paroxysmal A. fib: Patient sinus tachycardia with PVC. Patient underwent ablation by EP service in [facility] in December 2020 but was unsuccessful. He is scheduled for repeat ablation in [facility]. Flecainide was held by [facility] when he was admitted in July 2021 due to increased creatinine level. Currently monitor technician shows sinus tachycardia at the rate of 115 to 120/min. Restart flecainide 100 mg 1 p.o. now and then 50 mg twice daily, adjusted to the creatinine clearance. Continue Eliquis. 09/09: In the morning flecainide was changed to full dose. Dr. Shepard is going to change flecainide to amiodarone as flecainide is negative inotropic effect also. 5. Hypertension and dyslipidemia: On high intensity statin. 09/09: Blood pressure is on low 100s to low teens 6.. Chronic myelofibrosis/chronic thrombocytopenia/chronic anemia: Patient follows [facility] oncologist Dr. Trejo. The patient on darbepoetin, iron supplement and Fedratinib. Patient had last abdomen pelvis CT in June 2020 which showed severely splenomegaly with heterogeneous appearance and hypodense nodules scattered throughout. He did not show ascites but that CT was more than 1 year ago. Liver profile shows low transaminases. 7. Hypothyroidism on Synthroid. 8. VT prophylaxis on Eliquis. Discontinue if platelet count drops less than 50,000 or hemoglobin less than 8 g% Total time of the visit includes total time spent in counseling or coordination of care, (more than 50% of the total time, spent in obtaining medical information from nurses and other ancillary care providers,explaining to the patient about labs, imaging, diagnosis and management), discussion with consultants, car barn laborer and director media, review of labs, echo and imaging is 40 minutes Active Medications Acetaminophen (Acetaminophen 325 Mg Tablet) 650 mg PO Q6H PRN PRN PRN Reason: Pain 1-10 or Fever Last Admin: 09/06/21 21:55 Dose: 650 mg Documented by: Allopurinol (Allopurinol 300 Mg Tablet) 300 mg PO DAILY [facility] Last Admin: 09/09/21 08:23 Dose: 300 mg Documented by: Apixaban (Apixaban 2.5 Mg Tablet) 2.5 mg PO BID [facility] Last Admin: 09/09/21 08:24 Dose: 2.5 mg Documented by: Calcium Carbonate (Calcium Carbonate 500 Mg Tablet) 500 mg PO TIDCM [facility] Last Admin: 09/09/21 11:29 Dose: 500 mg Documented by: Compound Med (Arthritis Pain Compound 60 Click Tube) 1 click TOPICAL BID [facility]; Protocol Last Admin: 09/09/21 08:23 Dose: Not Given Documented by: Finasteride (Finasteride 5 Mg Tablet) 5 mg PO QHS [facility] Last Admin: 09/08/21 21:24 Dose: 5 mg Documented by: Flecainide Acetate (Flecainide 100 Mg Tablet) 100 mg PO Q12H [facility] Fluticasone Propionate (Fluticasone 0.05% 1 [place] Nasal.Sry) 1 spray NASAL BID [facility] Last Admin: 09/09/21 08:28 Dose: Not Given Documented by: Furosemide (Furosemide 40 Mg/4 Ml Vial) 40 mg IV BIDLX [facility] Last Admin: 09/09/21 10:32 Dose: 40 mg Documented by: Sodium Chloride () 250 mls @ 15 mls/hr IV .[id number] PRN PRN Reason: Saline Flush Sodium Chloride () 250 mls @ 15 mls/hr IV .[id number] PRN PRN Reason: Additional IVPB Infusion Levothyroxine Sodium (Levothyroxine 150 Mcg Tablet) 300 mcg PO 0600 [facility] Last Admin: 09/09/21 06:14 Dose: 300 mcg Documented by: Loratadine (Loratadine 10 Mg Tablet) 5 mg PO DAILY@HS [facility] Last Admin: 09/08/21 21:19 Dose: 5 mg Documented by: Metoprolol Succinate (Metoprolol(Xl)Succ 100 Mg Tablet) 100 mg PO BID [facility] Last Admin: 09/09/21 08:24 Dose: 100 mg Documented by: Non-Formulary Medication (Darbepoetin Gabriel In Polysorbat) 100 mcg SC Q14D [facility] Polysaccharide Iron Complex (Iron Polysaccharide Complex 150 Mg Capsule) 150 mg PO QODAY [facility] Sodium Chloride (0.9% Saline Lock 10 Ml Syringe) 10 - 40 ml IV UD PRN PRN Reason: SALINE FLUSH Last Admin: 09/09/21 10:33 Dose: 10 ml Documented by: Tamsulosin HCl (Tamsulosin Hcl 0.4 Mg Capsule) 0.4 mg PO QHS [facility] Last Admin: 09/08/21 21:20 Dose: 0.4 mg Documented by: Charges/Coding Visit Charges Inpatient E&M: 38059 Subs Hosp L3
--- NOTE | 2021-09-09 12:17 | CHAPLAIN ---
Type of Pastoral Visit _x__ Initial Visit ___ Follow-up Visit ___ On-call Visit ___ General Patient Visit ___ Spiritual Assessment ___ Family Conference ___ Bereavement ___ Rapid Response ___ Code Blue ___ Other (describe below) Pastoral Care Referral From _x__ Patient ___ Family ___ Nurse ___ Physician ___ Director Motion Picture ___ Magnetic Resonance Technologist ___ Other (describe below) Sacrament/Intervention _x__ Active listening ___ Anointing ___ Moravian ___ Bereavement ___ Communion _x__ Joy exploration ___ _x__ Life review _x__ Prayer ___ Reconciliation ___ Sacrament of Sick _x__ Supportive presence ___ Wedding ___ Other (describe below) Pastoral Comments patient has been seen before by this bridge game director during a previous admission; pt has had repeated admissions; pt states he is more hopeful for answers and a plan of action; pt and spouse both speak of their spiritual care and needs; pt presents attitude of submission to God and expectation for God's will to be known; pt welcomes prayer and presence and future visits
[2021-09-09 14:24] LABS: ANTINUCLEAR ANTIBODIES DIRECT Negative (Negative)
[2021-09-09 15:20] LABS: Pathologist Review Reviewed
--- NOTE | 2021-09-09 16:12 | PCM.CONS.C ---
Assessment & Plan Assessment/Plan (1) Atrial fibrillation and flutter: PLAN: The patient does have a history of atrial fibrillation status post EPS/RFA. He also appears to have a regular appearing narrow complex tachycardia which, status post review of his cardiac rhythm strips, may be compatible with an underlying atrial flutter. At the present time it is reasonable to continue rate control therapy. His antiarrhythmic agent may need to be adjusted based upon concerns of a change in his left ventricular wall motion and function and LVEF (decreased). His flecainide/Tambocor agent may have to be altered as if the aforementioned changes related to progression of CAD then there would be a concern with respect to any potentially negative/adverse events with underlying CAD as well as flecainide/Tambocor having a negative inotropic effect superimposed upon his diminished LV systolic function/LVEF. He states that he had been on amiodarone in the past in the hospital to help control his cardiac rate and rhythm. This may be the alternative agent to use in his case as an outpatient as well at this time as he is not an ideal candidate for other agents such as Betapace/sotalol or Tikosyn/dofetilide secondary to concerns of a combination of his diminished LV systolic function and renal insufficiency. Also, based upon his ongoing issues, his EPS/RFA procedure may have to be placed on temporary hold until he undergoes further cardiovascular evaluation/stabilization, etc. (2) CHF (congestive heart failure): PLAN: The patient has a history of chronic diastolic CHF. However now he appears to also have an element, based upon his echocardiographic findings, of diminished systolic function as well. His change in LV wall motion systolic function raises a concern as to whether or not these findings can be related to his atrial dysrhythmia versus being related to the development of CAD. At the present time he will need to continue medical management for his CHF. This could include agents such as nitrates, beta-blockers, diuretics, and afterload reducing agents as tolerated by his renal insufficiency, etc. (3) CAD (coronary artery disease): PLAN: The patient's previous cardiac catheterization as noted above. Based upon the patient's ongoing issues and concerns he may need to have repeat diagnostic cardiac catheterization to redefine his coronary anatomy to assist in further evaluation and care. However it would be reasonable for the patient to be overall clinically improved prior to such procedure and to allow his renal function time to stabilize prior to undergoing such procedure to minimize the risk of IV contrast related nephropathy. (4) Acute on chronic kidney failure: PLAN: The patient's creatinine level has fluctuated up and down recently. It appears to be improving. He will need to continue medical management at this time. Nephrology is also following the patient. (5) Hyperlipidemia: PLAN: The patient should continue risk factor evaluation and care as deemed appropriate. (6) Myelofibrosis: PLAN: The patient has a history of myelofibrosis which he states, with its association with his concerns of anemia, etc., has only made taking care of his other medical conditions more challenging. Certainly the anemia can make his other medical conditions more challenging to evaluate and/or care for. Hopefully he will be able to continue medication which is appropriate to boost his RBC counts. Addt'l Comments The patient's case was discussed and reviewed with the patient at length as well as with Dr. Wills. This note was generated using a voice recognition system and there may be incorrect words, spelling or punctuation that were not noted when reviewing the office note prior to saving. HPI Consult Data Date of Consult: 09/09/21 HPI Narrative HPI Narrative: ALTON BROWN, is a 71 year old white male who presents for cardiovascular consultation based upon concerns of paroxysmal atrial fibrillation/flutter status post atrial fibrillation ablation procedure ([facility]) with concerns of a history of chronic diastolic mediated CHF, hyperlipidemia, myelofibrosis, platelet dyscrasia with a history of thrombocytosis and thrombocytopenia, splenomegaly, hypothyroidism, and acute on chronic renal insufficiency who has been followed by Dr. Guo of the [facility]. He presented to [facility] on 09-06-2021 with concerns of being unable to urinate and the sensation of gaining weight. He was noted to have, status post evaluation in the emergency department, concerns of worsening renal function. There was also concern with respect to having abdominal ascites. He states this is all in the setting of having been reassessed for an upcoming repeat EPS/RFA. His cardiac enzymes were negative. His ECG demonstrated sinus rhythm with a first-degree AV block with nonspecific ST and T wave abnormality. His cardiac rhythm in the hospital was demonstrated evidence of sinus rhythm with PVCs with episodes appearing compatible with paroxysmal atrial flutter. He has undergone evaluation with a transthoracic echocardiogram. The results are noted below. It is noted that his overall LV wall motion is now abnormal and his LVEF has decreased. His hemoglobin level has remained low since July of this year with hemoglobins as low as 7.8 and as high as 9.6. His creatinine level on 08-18-2021 was 4.76. It appears it had decreased to 1.92 on 08-27-2021. However it subsequently increased to 3.32 on the day of admission. His creatinine level has decreased to 1.58. . He has also been undergoing evaluation by urology and nephrology. His medications were adjusted where his antiarrhythmic therapy with respect to his flecainide/Tambocor was placed on hold secondary his renal insufficiency, restarted, then discontinued, and now recently restarted again at a lower dose. From a cardiac standpoint it also appears the patient underwent diagnostic cardiac catheterization at [place], [place] on 12-02-2017. Per their report the left main coronary was normal, the LAD had a first septal rn recruitment with ostial 40% stenosis, the LCx was normal, of the intermediate ramus was normal, and the RCA was dominant and normal. He underwent evaluation at [facility] by electrophysiology on 12-31-2020. Per their EPS/RFA study it stated that he had supraventricular arrhythmias with the ablation of atrial fibrillation being considered successful. [facility] Medical History (Updated 09/09/21 @ 16:[address] He Shepard MD) Anemia Atrial fibrillation and flutter CAD (coronary artery disease) CHF (congestive heart failure) Chronic diastolic (congestive) heart failure Chronic heart failure with preserved ejection fraction (HFpEF) Essential thrombocytosis History of COVID-19 Hyperlipidemia Hypothyroidism Leukopenia Mild dehydration Myelofibrosis Myeloproliferative neoplasm Neutropenic fever Pancytopenia Paroxysmal atrial fibrillation Paroxysmal atrial tachycardia (04/11/21) Right inguinal hernia Splenomegaly Thrombocytopenia Thyroid disease Home Medications allopurinol 300 mg PO DAILY 02/04/18 [History Last Taken 09/05/21] finasteride 5 mg PO QHS 02/04/18 [History Last Taken 09/05/21] gemfibrozil 600 mg PO DAILY 02/04/18 [History Last Taken 09/05/21] alfuzosin 10 mg PO QHS 04/21/20 [History Last Taken 09/05/21] fedratinib 200 mg PO QHS 04/21/20 [History Last Taken 09/05/21] darbepoetin aster in polysorbat 100 mcg/0.5 mL in polysorbate injection syringe 100 mcg SC Q14D 05/15/20 [History Last Taken 08/22/21] levothyroxine 112 mcg tablet 300 mcg PO DAILY tab 08/13/20 [History Last Taken 09/06/21] fluticasone propionate 1 spray INTRANASAL BID 08/13/21 [History Last Taken 09/05/21] polysaccharide iron complex [Ferrex 150] 150 mg PO DAILYCM 30 Days #30 cap 08/15/21 [Rx Last Taken 09/05/21] calcium carbonate 600 mg PO TID #0 tab 08/20/21 [Rx Last Taken 09/05/21] flecainide 100 mg tablet 100 mg PO Q12H #180 tab 08/27/21 [Rx Last Taken 09/05/21] furosemide 40 mg tablet 40 mg PO BID 08/27/21 [History Last Taken 09/05/21] metoprolol succinate 100 mg tablet,extended release 24 hr 100 mg PO BID tab 08/27/21 [History Last Taken 09/05/21] apixaban 2.5 mg tablet 2.5 mg PO BID #180 tab 09/01/21 [Rx Last Taken 09/05/21] metolazone 2.5 mg tablet 2.5 mg PO .weekly #2 tab 09/01/21 [Rx Last Taken 09/03/21] Allergy/AdvReac Type Severity Reaction Status Date / Time pseudoephedrine AdvReac Severe Itching Verified 09/01/21 00:21 [From [facility]] Family History Mother Heart disease Dementia Diabetes Father COPD (chronic obstructive pulmonary disease) Heart disease Sister Cancer uterine Surgical History H/O cardiac catheterization (12/02/17) H/O prostate biopsy H/O right inguinal hernia repair History of bone marrow biopsy History of colonoscopy (2012) History of radiofrequency ablation procedure for cardiac arrhythmia (01/06/21) History of thyroidectomy History of transurethral resection of prostate (07/2020) Social History household members: spouse Smoking Status: Former smoker alcohol intake: never substance use type: does not use ROS Constitutional Constitutional: Reports as per HPI Eyes Eyes: Reports as per HPI ENT HEENT: Reports as per HPI Cardiovascular Cardiovascular: Reports abdominal edema, dyspnea, irregular heart rhythm, leg edema and rapid heart rate Respiratory/Chest Respiratory/Chest: Reports dyspnea Gastrointestinal Gastrointestinal: Reports as per HPI Genitourinary Genitourinary: Reports difficulty urinating Musculoskeletal Musculoskeletal: Reports as per HPI Integumentary Integumentary: Reports as per HPI Neurologic Neurologic: Reports as per HPI Psychiatric Psychiatric: Reports as per HPI Physical Exam Narrative This is a 71-year-old white male who appears to be resting reasonably comfortably at the moment in no acute distress. Const alert, oriented x3 and no apparent distress Orientation / Consciousness: awake HEENT normocephalic, head/scalp atraumatic and hearing grossly normal bilaterally Eyes PERRL, EOMs intact bilaterally and conjunctivae normal Neck full ROM, supple and no JVD Resp clear to auscultation bilaterally Cardio regular rate, S1 normal heart sound and S2 normal heart sound Rate: tachycardic GI GI Narrative: Distended appearing Extremity General Extremity: edema bilateral lower extremity Details: moderate Skin no rashes or lesions noted Neuro oriented x3, moves all extremities, no focal motor deficits and no sensory deficits noted Psych mental status grossly normal Risk Stratification Risk Stratification Applicable: No Objective Data Vital Signs: Vital Signs Temp Pulse Resp BP Pulse Ox 97.9 F 113 H 14 102/73 95 09/09/21 09:10 09/09/21 11:00 09/09/21 09:10 09/09/21 09:10 09/09/21 09:10 Oxygen Delivery Method Room Air Weight: 205 lb 7.533 oz Body Mass Index (BMI) 33.1 Intake & Output: Intake and Output for Last 24 Hours 09/07/21 09/08/21 09/09/21 23:59 23:59 23:59 Intake Total 2316.25 / 2316.25 830 / 1070 480 / 480 Output Total 2950 / 3600 2725 / 3275 1650 / 1650 Balance -633.75 / -1283.75 -1895 / -2205 -1170 / -1170 Lab / Micro Data Result Diagrams: 09/09/21 05:45 09/09/21 05:45 Labs: Laboratory Results - last 24 hr 09/07/21 05:15: TORRES Screen Negative, ALOK-1 Antibody Not Reportable, SS-A/Ro IgG Antibody Not Reportable, SS-B/La IgG Antibody Not Reportable, Sm (Melendrez) Antibody Not Reportable, UNIVERSITY ADMINISTRATIVE ASSISTANT Antibody Not Reportable, Scl-70 Scleroderma Ab Not Reportable, Double Strand DNA Ab Not Reportable, Centromere B Antibody Not Reportable 09/09/21 05:45: WBC 3.6 L, RBC 3.31 L, Hgb 8.9 L, Hct 29.6 L, MCV 89.4, MCH 26.9 L, MCHC 30.1 L, RDW Std Deviation 69.3 H, RDW Coeff of Rafael 21.4 H, Plt Count 208, MPV 11.1, Immature Gran % (Auto) 0.600, Neut % (Auto) 76.7 H, Lymph % (Auto) 14.6 L, Greenlee % (Auto) 6.5, Eos % (Auto) 0.8, Baso % (Auto) 0.8, Absolute Neuts (auto) 2.7, Absolute Lymphs (auto) 0.52 L, Nucleated RBC % 0, Diff Path Review Reviewed, Anisocytosis 2+ 09/09/21 05:45: Sodium 139, Potassium 4.1, Chloride 106, Carbon Dioxide 27.0, Anion Gap 6, BUN 57 H, Creatinine 1.58 H, Estim Creat Clear Calc 42.69, Est GFR (MDRD) Af Amer 56 L, Est GFR (MDRD) Non-Af 46 L, BUN/Creatinine Ratio 36.1 H, Glucose 88, Calcium 6.2 L*, Magnesium 1.9 09/09/21 05:45: Phosphorus 3.3 Cardiology Labs/Tests 09/09/21 05:45: WBC 3.6 L, RBC 3.31 L, Hgb 8.9 L, Hct 29.6 L, MCV 89.4, MCH 26.9 L, MCHC 30.1 L, Plt Count 208, MPV 11.1, Immature Gran % (Auto) 0.600, Neut % (Auto) 76.7 H, Lymph % (Auto) 14.6 L, Greenlee % (Auto) 6.5, Eos % (Auto) 0.8, Baso % (Auto) 0.8, Absolute Neuts (auto) 2.7, Nucleated RBC % 0 09/09/21 05:45: Sodium 139, Potassium 4.1, Chloride 106, Carbon Dioxide 27.0, Anion Gap 6, BUN 57 H, Creatinine 1.58 H, Est GFR (MDRD) Af Amer 56 L, Est GFR (MDRD) Non-Af 46 L, BUN/Creatinine Ratio 36.1 H, Glucose 88, Calcium 6.2 L*, Magnesium 1.9 09/09/21 05:45: Phosphorus 3.3 Rhythm: Sinus rhythm; PVCs; episodes appearing compatible with paroxysmal atrial flutter EKG: As noted above ECHO: As noted below Cardiac Cath: As noted above Radiography Diagnostic Testing: Radiology Impression Echocardiogram 09/09/21 10:45 Interpretation Summary The study was technically difficult. Moderate segmental systolic dysfunction (see wall motion). The estimated ejection fraction is 40 %. Mildly dilated right ventricle. Mild global right ventricular systolic dysfunction. The left atrium is moderately enlarged. The right atrium is moderately enlarged. There is mild mitral annular calcification. Extension of the mitral annular calcification onto the base of the posterior mitral valve leaflet. Mild diffuse mitral valve thickening. Mild (1+) mitral valve insufficiency. Moderately severe (3+) tricuspid valve insufficiency. Mild diffuse aortic valve thickening. Mild focal aortic valve calcification. Trivial aortic valve insufficiency. Calcified aortic root. Right ventricular systolic pressure estimated to be 55 mmHg. Unable to assess diastolic dysfunction. Ordering Physician: Miguel Wills Referring Physician: Diogenes Suarez Performed By: Renee Brito RDCS
[2021-09-09] MEDS: Arthritis Pain Compound 60 CLICK TUBE TOPICAL (19:54)
[2021-09-09] MEDS: Tamsulosin HCl 0.4 MG Capsule PO (19:55)
[2021-09-09] MEDS: Loratadine 10 MG Tablet 5 MG PO (19:55)
[2021-09-09] MEDS: Finasteride 5 MG Tablet PO (19:58)
[2021-09-10] VITALS (26 sets, daily range): BP systolic 83–121; BP diastolic 53–88; PULSE 65–116; RESP 12–20; TEMP 36.8–37; O2SAT 92–99
[2021-09-10 06:10] LABS: Absolute Lymphocyte Count 0.47 X10^3/uL (0.83-4.51); Absolute Neutrophil Count 2.6 X10^3/uL (2.0-7.7); Basophil# 0.04 X10^3/uL; Basophil% 1.2 % (0-1); Eosinophil# 0.06 X10^3/uL; Eosinophils% 1.8 % (0-5); Hematocrit 29.5 % (40-54); Hemoglobin 8.9 g/dL (13.0-16.5); Lymphocyte # 0.47 X10^3/ul (0.83-4.51); Lymphocyte % 13.9 % (19-41); Mean Corp Hgb Conc 30.2 g/dL (32-36); Mean Corpuscular Volume 89.4 fL (80-94); Mean Platelet Vol. 10.6 fl (6.2-12.0); Monocyte% 5.9 % (0-10); NRBC Flagged by Analyzer 0 % (0-5); Neutrophil # 2.56 X10^3/uL (2.7-7.7); Neutrophil % 75.4 % (47-70); POSITIVE DIFFERENTIAL YES; POSITIVE MORPHOLOGY YES; Platelet Count 203 K/mm3 (150-450); RBC Distribution Width SD 69.1 fl (35.1-43.9); White Blood Count 3.4 K/mm3 (4.4-11.0)
[2021-09-10 06:18] LABS: Differential Indicated SCAN CRITERIA MET
[2021-09-10 06:38] LABS: Anisocytosis 2+
[2021-09-10 06:58] LABS: Anion Gap 7 (5-15); BUN 58 mg/dL (7-18); BUN/Creat Ratio 38.2 RATIO (10-20); Calcium,Total 6.1 mg/dL (8.5-10.1); Chloride 105 mmol/L (98-107); Cholesterol 59 mg/dL (200); Creatinine, Serum 1.52 mg/dL (0.70-1.30); EST Glomerular Filtration Rate 49 mL/min (>60); Est Glom Filt Rate - Afr Amer 59 mL/min (>60); Estimated Creatinine Clearance 44.38 ml/min; Glucose 89 mg/dL (74-106); High Density Lipoprotein 13 mg/dL; Potassium 3.9 mmol/L (3.5-5.1); Sodium Level 138 mmol/L (136-145); Triglycerides 107 mg/dL; Very Low Density Lipoprotein 21 mg/dL (5-40)
[2021-09-10] MEDS: Levothyroxine 150 MCG Tablet 300 MCG PO (06:59)
--- NOTE | 2021-09-10 08:01 | PN.HOSP_ITS ---
Subjective Subjective Seen and examined. Follow-up for multiple issues including heart failure, acute kidney injury on chronic kidney disease, paroxysmal A. fib, sinus tachycardia and myelofibrosis Objective Data Objective Data Vital Signs: Vital Signs Temp Pulse Resp BP Pulse Ox 98.2 F 98 19 H 88/53 L 96 09/10/21 07:46 09/10/21 07:46 09/10/21 07:46 09/10/21 07:46 09/10/21 07:46 Oxygen Delivery Method Room Air Weight: 209 lb 10.554 oz Body Mass Index (BMI) 33.1 Intake & Output: Intake and Output for Last 24 Hours 09/08/21 09/09/21 09/10/21 23:59 23:59 23:59 Intake Total 830 / 1070 1383.00 / 1629.68 363.58 / 363.58 Output Total 2725 / 3275 2750 / 3650 1300 / 1300 Balance -1895 / -2205 -1367.00 / -2020.32 -936.42 / -936.42 Lab / Micro Data Result Diagrams: 09/10/21 04:54 09/10/21 04:54 Labs: Laboratory Results - last 24 hr 09/07/21 05:15: TORRES Screen Negative, ALOK-1 Antibody Not Reportable, SS-A/Ro IgG Antibody Not Reportable, SS-B/La IgG Antibody Not Reportable, Sm (Melendrez) Antibody Not Reportable, MICROARRAY ANALYST Antibody Not Reportable, Scl-70 Scleroderma Ab Not Reportable, Double Strand DNA Ab Not Reportable, Centromere B Antibody Not Reportable 09/09/21 05:45: Diff Path Review Reviewed 09/10/21 04:54: WBC 3.4 L, RBC 3.30 L, Hgb 8.9 L, Hct 29.5 L, MCV 89.4, MCH 27.0, MCHC 30.2 L, RDW Std Deviation 69.1 H, RDW Coeff of Rafael 21.0 H, Plt Count 203, MPV 10.6, Immature Gran % (Auto) 1.800 H, Neut % (Auto) 75.4 H, Lymph % (Auto) 13.9 L, Donley % (Auto) 5.9, Eos % (Auto) 1.8, Baso % (Auto) 1.2 H, Absolute Neuts (auto) 2.6, Absolute Lymphs (auto) 0.47 L, Nucleated RBC % 0, Diff Path Review May foll, Anisocytosis 2+ 09/10/21 04:54: Sodium 138, Potassium 3.9, Chloride 105, Carbon Dioxide 26.0, Anion Gap 7, BUN 58 H, Creatinine 1.52 H, Estim Creat Clear Calc 44.38, Est GFR (MDRD) Af Amer 59 L, Est GFR (MDRD) Non-Af 49 L, BUN/Creatinine Ratio 38.2 H, Glucose 89, Calcium 6.1 L*, Triglycerides 107, Cholesterol 59, LDL Cholesterol 25, VLDL Cholesterol 21, HDL Cholesterol 13 L Radiography Diagnostic Testing: Radiology Impression Echocardiogram 09/09/21 10:45 Interpretation Summary The study was technically difficult. Moderate segmental systolic dysfunction (see wall motion). The estimated ejection fraction is 40 %. Mildly dilated right ventricle. Mild global right ventricular systolic dysfunction. The left atrium is moderately enlarged. The right atrium is moderately enlarged. There is mild mitral annular calcification. Extension of the mitral annular calcification onto the base of the posterior mitral valve leaflet. Mild diffuse mitral valve thickening. Mild (1+) mitral valve insufficiency. Moderately severe (3+) tricuspid valve insufficiency. Mild diffuse aortic valve thickening. Mild focal aortic valve calcification. Trivial aortic valve insufficiency. Calcified aortic root. Right ventricular systolic pressure estimated to be 55 mmHg. Unable to assess diastolic dysfunction. Ordering Physician: Miguel Wills Referring Physician: Diogenes Suarez Performed By: Renee Brito RDCS Physical Exam Narrative Seen and examined Blood pressure on lower side, systolic 88/53. Lisinopril. Metoprolol. Diuresis was held at that time but given later on. Shortness of breath mild improvement. Never had paracentesis. Patient not feeling abdominal distress because of his splenomegaly. General: Alert, Oriented x3, Cooperative HEENT: Atraumatic, PERRLA, EOMI, Normocephalic Oral: No Gingival or Mucosal Lesions/ Ulcerations Neck: Supple, No JVD, Negative Carotid Bruits Lungs: Air entry diminished in bilateral lung bases. No crepitation/rhonchi Cardiovascular:Sinus rhythm, PVCs on electronic device monitor. Normal S1, Normal S2, No murmurs Abdomen: Massive splenomegaly. Abdominal distention, chronic. Mild ascites. Bowel Sounds Present, Soft, Non Tender : No renal angle tenderness. No suprapubic tenderness. Extremities:pitting edema up to mid thigh, bilateral. Capillary Refill Less than 3 Seconds Skin: No rashes, No breakdown Musculoskeletal: No Tenderness to Palpation of Joints or Extremities Neurological: Cranial nerves II-XII grossly intact, DTR 2+/4 and Symmetrical, muscle strength 4/5 at major joints Psych/Mental Status: Normal, appropriate. Assessment & Plan Assessment/Plan (1) CAREY (acute kidney injury): (2) Chronic kidney disease, stage 3b: (3) Hypocalcemia: (4) Hyponatremia: PLAN: Patient admission status changed to inpatient today on 09/10. 1. Dyspnea on minimal exertion, chronic from acute on chronic HFpEF/diastolic heart failure, myelofibrosis with massive splenomegaly: Patient is currently admitted in PCU. Lower extremity edema has improved. Patient has clear lungs on auscultation but is still dyspnea on minimal/mild exertion. Patient saw Dr. Guo in August 27, 2021, office visit reviewed. Last echo in 03/2021 shows mild concentric LVH, normal LV systolic function, EF 57%. RV dilated with systolic function normal. Currently Lasix, metolazone are on hold due to worse lula kidney failure. 09/09: [employer] consult at the request of post doctoral fellow. 2D echo repeat was done. Patient has increased in the lower extremity edema and Lasix 40 mg IV twice daily started. Heart failure core measures including intake and output, fluid restriction less than 1500 mL, daily weight monitoring, kidney and electrolytes monitoring. 2D echo shows EF 40%, mildly dilated RV with global RV systolic dysfunction. LA, RA moderately enlarged. 1+ MR, moderately severe TR, RVSP 55 mg suggestive of moderately high pulmonary hypertension. 09/10: Continue diuretics. Blood pressure on lower level for challenging. Discussed with nursing staff, out of 2 metoprolol and diuretic Lasix, peripheral ancestral given hold metoprolol in case of low blood pressure. 2. CAREY on CKD stage IIIb with history of bladder outlet obstruction due to BPH, status post [place] catheterization: Patient follows with [place] post doctoral fellow Dr. Williamson discussed with. This is comanaged with the post doctoral fellow. Protein to creatinine ratio elevated 588 mg/g. Serum albumin 3.1 g/dL. Nonnephrotic range of proteinuria. Renal ultrasound recently was unremarkable with no hydronephrosis. Patient has history of BPH and follows Dr. Baxter. Patient had UroLift, less invasive surgery less risk of bleeding but his symptoms recurred. He has irritative and obstructive symptoms of lower urinary tract including hesitancy, intermittent stop and go, difficult to initiate and maintain the urinary stream, and urine retention. Patient required [place] catheterization. Currently having clear urine. Discussed with the urologist Dr. Baxter. Patient on tamsulosin and finasteride. 09/09: Improvement in creatinine 1.55 Lasix resumed as mentioned above. Patient seen by urologist and advised to follow-up with office post surgery after ablation treatment and special investigation unit investigator clearance. 09/10: Slight improvement in creatinine. Patient had 2.5 to 3 L dialysis in last 3 days. 3. Electrolyte abnormalities: Patient has severe hypocalcemia: Patient has hyperphosphatemia, high at 5 mg/dL. No indication for phosphate binder. Serum magnesium normal. Serum albumin 3.2. Calcium gluconate 1 g IV piggyback given in ER. Patient does not have symptoms of hypocalcemia or tetany. Ionized calcium pending. PTH 31.9 pg/mL, vitamin D 20.8. Vitamin D 125 dihydroxy pending. 09/09: Mild hypokalemia, potassium is getting replaced. Magnesium and phosphorus level normal. Calcium level chronically low even after replacement. Does not have hypocalcemic symptoms. 4. Paroxysmal A. fib: Patient sinus tachycardia with PVC. Patient underwent ablation by EP service in [facility] in December 2020 but was unsuccessful. He is scheduled for repeat ablation in [facility]. Flecainide was held by [facility] when he was admitted in July 2021 due to increased creatinine level. Currently electronic device monitor shows sinus tachycardia at the rate of 115 to 120/min. Restart flecainide 100 mg 1 p.o. now and then 50 mg twice daily, adjusted to the creatinine clearance. Continue Eliquis. 09/09: In the morning flecainide was changed to full dose. Dr. Shepard is going to change flecainide to amiodarone as flecainide is negative inotropic effect also. 09/10: Tachycardia is improving on amiodarone drip. Flecainide discontinued 5. Hypertension and dyslipidemia: On high intensity statin. 09/09: Blood pressure is on low 100s to low teens 6.. Chronic myelofibrosis/chronic thrombocytopenia/chronic anemia: Patient follows [facility] oncologist Dr. Trejo. The patient on darbepoetin, iron supplement and Fedratinib. Patient had last abdomen pelvis CT in June 2020 which showed severely splenomegaly with heterogeneous appearance and hypodense nodules scattered throughout. He did not show ascites but that CT was more than 1 year ago. Liver profile shows low transaminases. 09/10: WBC count on lower side. Mild leukopenia. Lymphopenia. Immature granulocytes. Chronic normocytic normochromic anemia. Platelet count normal. 7. Hypothyroidism on Synthroid. 8. VT prophylaxis on Eliquis. Discontinue if platelet count drops less than 50,000 or hemoglobin less than 8 g% Total time of the visit includes total time spent in counseling or coordination of care, (more than 50% of the total time, spent in obtaining medical information from nurses and other ancillary care providers,explaining to the patient about labs, imaging, diagnosis and management), discussion with consultants, special investigation unit investigator and post doctoral fellow, review of labs, echo and imaging is 40 minutes Charges/Coding Visit Charges Inpatient E&M: [id number] [place] [id number]
[2021-09-10 08:10] LABS: Complement C3 79 mg/dL (82-167); Cytoplasmic Ab (C-ANCA) <1:20 titer (Neg:<1:20)
--- NOTE | 2021-09-10 09:44 | PCM.PN.CARD ---
Subjective Subjective The patient is awake and alert. He believes he feels somewhat better with respect to his breathing and less tight with respect to his abdominal girth and his lower extremity edema. Objective Data Vital Signs: Vital Signs Temp Pulse Resp BP Pulse Ox 98.4 F 104 H 16 102/72 96 09/10/21 09:23 09/10/21 09:23 09/10/21 09:23 09/10/21 09:23 09/10/21 09:23 Oxygen Delivery Method Room Air Weight: 209 lb 10.554 oz Body Mass Index (BMI) 33.1 Intake & Output: Intake and Output for Last 24 Hours 09/08/21 09/09/21 09/10/21 23:59 23:59 23:59 Intake Total 830 / 1070 1383.00 / 1629.68 396.98 / 396.98 Output Total 2725 / 3275 2750 / 3650 1300 / 1300 Balance -1895 / -2205 -1367.00 / -2020.32 -903.02 / -903.02 Lab / Micro Data Result Diagrams: 09/10/21 04:54 09/10/21 04:54 Labs: Laboratory Results - last 24 hr 09/07/21 05:15: TORRES Screen Negative, ALOK-1 Antibody Not Reportable, SS-A/Ro IgG Antibody Not Reportable, SS-B/La IgG Antibody Not Reportable, Sm (Melendrez) Antibody Not Reportable, TELEVISION DIRECTOR Antibody Not Reportable, Scl-70 Scleroderma Ab Not Reportable, Double Strand DNA Ab Not Reportable, Centromere B Antibody Not Reportable 09/09/21 05:45: Diff Path Review Reviewed 09/10/21 04:54: WBC 3.4 L, RBC 3.30 L, Hgb 8.9 L, Hct 29.5 L, MCV 89.4, MCH 27.0, MCHC 30.2 L, RDW Std Deviation 69.1 H, RDW Coeff of Rafael 21.0 H, Plt Count 203, MPV 10.6, Immature Gran % (Auto) 1.800 H, Neut % (Auto) 75.4 H, Lymph % (Auto) 13.9 L, [place] % (Auto) 5.9, Eos % (Auto) 1.8, Baso % (Auto) 1.2 H, Absolute Neuts (auto) 2.6, Absolute Lymphs (auto) 0.47 L, Nucleated RBC % 0, Diff Path Review May foll, Anisocytosis 2+ 09/10/21 04:54: Sodium 138, Potassium 3.9, Chloride 105, Carbon Dioxide 26.0, Anion Gap 7, BUN 58 H, Creatinine 1.52 H, Estim Creat Clear Calc 44.38, Est GFR (MDRD) Af Amer 59 L, Est GFR (MDRD) Non-Af 49 L, BUN/Creatinine Ratio 38.2 H, Glucose 89, Calcium 6.1 L*, Triglycerides 107, Cholesterol 59, LDL Cholesterol 25, VLDL Cholesterol 21, HDL Cholesterol 13 L Cardiology Labs/Tests 09/10/21 04:54: WBC 3.4 L, RBC 3.30 L, Hgb 8.9 L, Hct 29.5 L, MCV 89.4, MCH 27.0, MCHC 30.2 L, Plt Count 203, MPV 10.6, Immature Gran % (Auto) 1.800 H, Neut % (Auto) 75.4 H, Lymph % (Auto) 13.9 L, [place] % (Auto) 5.9, Eos % (Auto) 1.8, Baso % (Auto) 1.2 H, Absolute Neuts (auto) 2.6, Nucleated RBC % 0 09/10/21 04:54: Sodium 138, Potassium 3.9, Chloride 105, Carbon Dioxide 26.0, Anion Gap 7, BUN 58 H, Creatinine 1.52 H, Est GFR (MDRD) Af Amer 59 L, Est GFR (MDRD) Non-Af 49 L, BUN/Creatinine Ratio 38.2 H, Glucose 89, Calcium 6.1 L*, Triglycerides 107, Cholesterol 59, LDL Cholesterol 25, VLDL Cholesterol 21, HDL Cholesterol 13 L Rhythm: Sinus rhythm; supraventricular tachycardia appearing compatible with an atrial tachycardia/atrial flutter Radiography Diagnostic Testing: Radiology Impression Echocardiogram 09/09/21 10:45 Interpretation Summary The study was technically difficult. Moderate segmental systolic dysfunction (see wall motion). The estimated ejection fraction is 40 %. Mildly dilated right ventricle. Mild global right ventricular systolic dysfunction. The left atrium is moderately enlarged. The right atrium is moderately enlarged. There is mild mitral annular calcification. Extension of the mitral annular calcification onto the base of the posterior mitral valve leaflet. Mild diffuse mitral valve thickening. Mild (1+) mitral valve insufficiency. Moderately severe (3+) tricuspid valve insufficiency. Mild diffuse aortic valve thickening. Mild focal aortic valve calcification. Trivial aortic valve insufficiency. Calcified aortic root. Right ventricular systolic pressure estimated to be 55 mmHg. Unable to assess diastolic dysfunction. Ordering Physician: Miguel Wills Referring Physician: Diogenes Suarez Performed By: Renee Brito RDCS Physical Exam Narrative This is a 71-year-old white male who appears to be resting reasonably comfortably at the moment in no acute distress. Const alert, oriented x3 and no apparent distress Orientation / Consciousness: awake HEENT normocephalic, head/scalp atraumatic and hearing grossly normal bilaterally Eyes PERRL, EOMs intact bilaterally and conjunctivae normal Neck full ROM, supple and no JVD Resp clear to auscultation bilaterally Cardio regular rate, S1 normal heart sound and S2 normal heart sound Rate: tachycardic GI GI Narrative: Distended appearing Extremity General Extremity: edema bilateral lower extremity Details: moderate Skin no rashes or lesions noted Neuro oriented x3, moves all extremities, no focal motor deficits and no sensory deficits noted Psych mental status grossly normal Assessment & Plan Assessment/Plan (1) Atrial fibrillation and flutter: PLAN: The patient does have a history of atrial fibrillation status post EPS/RFA. He also appears to have a regular appearing narrow complex tachycardia which, status post review of his cardiac rhythm strips, may be compatible with an underlying atrial flutter. At the present time it is reasonable to continue rate control therapy. His antiarrhythmic therapy has been altered to IV amiodarone which appears to have assisted somewhat with slowing his paroxysmal supraventricular dysrhythmias. He will be transition to oral amiodarone. He is continuing anticoagulant therapy. Also, based upon his ongoing issues, his EPS/RFA procedure may have to be placed on temporary hold until he undergoes further cardiovascular evaluation/stabilization, etc. (2) CHF (congestive heart failure): PLAN: The patient has a history of chronic diastolic CHF. However now he appears to also have an element, based upon his echocardiographic findings, of diminished systolic function as well. His change in LV wall motion systolic function raises a concern as to whether or not these findings can be related to his atrial dysrhythmia versus being related to the development of CAD. At the present time he will need to continue medical management for his CHF. This could include agents such as nitrates, beta-blockers, diuretics, and afterload reducing agents as tolerated by his renal insufficiency, etc. (3) CAD (coronary artery disease): PLAN: The patient's previous cardiac catheterization as noted above. Based upon the patient's ongoing issues and concerns he may need to have repeat diagnostic cardiac catheterization to redefine his coronary anatomy to assist in further evaluation and care. However it would be reasonable for the patient to be overall clinically improved prior to such procedure and to allow his renal function time to stabilize prior to undergoing such procedure to minimize the risk of IV contrast related nephropathy. (4) Acute on chronic kidney failure: PLAN: The patient's creatinine level has fluctuated up and down recently. His creatinine has improved overall, however, it still remains somewhat elevated. He will need to continue medical management at this time. Nephrology is also following the patient. (5) Hyperlipidemia: PLAN: The patient should continue risk factor evaluation and care as deemed appropriate. (6) Myelofibrosis: PLAN: The patient has a history of myelofibrosis which he states, with its association with his concerns of anemia, etc., has only made taking care of his other medical conditions more challenging. Certainly the anemia can make his other medical conditions more challenging to evaluate and/or care for. Hopefully he will be able to continue medication which is appropriate to boost his RBC counts. Addt'l Comments The patient denies symptoms considered classic for angina pectoris, CHF / pulmonary edema (with respect to orthopnea / PND), ongoing palpitations, or near syncope / syncope.
--- NOTE | 2021-09-10 09:52 | PCM.PN.REN ---
Subjective Subjective Following for CAREY on CKD Sitting on side of bed. No complaints this morning. Reports good appetite. No nausea. Objective Data Objective Data Vital Signs: Vital Signs Temp Pulse Resp BP Pulse Ox 98.4 F 104 H 16 102/72 96 09/10/21 09:23 09/10/21 09:23 09/10/21 09:23 09/10/21 09:23 09/10/21 09:23 Oxygen Delivery Method Room Air Weight: 95.1 kg Body Mass Index (BMI) 33.1 Intake & Output: Intake and Output for Last 24 Hours 09/08/21 09/09/21 09/10/21 23:59 23:59 23:59 Intake Total 830 / 1070 1383.00 / 1629.68 396.98 / 396.98 Output Total 2725 / 3275 2750 / 3650 1300 / 1300 Balance -1895 / -2205 -1367.00 / -2020.32 -903.02 / -903.02 Lab / Micro Data Result Diagrams: 09/10/21 04:54 09/10/21 04:54 Labs: Laboratory Results - last 24 hr 09/07/21 05:15: TORRES Screen Negative, ALOK-1 Antibody Not Reportable, SS-A/Ro IgG Antibody Not Reportable, SS-B/La IgG Antibody Not Reportable, Sm (Melendrez) Antibody Not Reportable, SKEIN YARN DYER HELPER Antibody Not Reportable, Scl-70 Scleroderma Ab Not Reportable, Double Strand DNA Ab Not Reportable, Centromere B Antibody Not Reportable 09/09/21 05:45: Diff Path Review Reviewed 09/10/21 04:54: WBC 3.4 L, RBC 3.30 L, Hgb 8.9 L, Hct 29.5 L, MCV 89.4, MCH 27.0, MCHC 30.2 L, RDW Std Deviation 69.1 H, RDW Coeff of Rafael 21.0 H, Plt Count 203, MPV 10.6, Immature Gran % (Auto) 1.800 H, Neut % (Auto) 75.4 H, Lymph % (Auto) 13.9 L, [place] % (Auto) 5.9, Eos % (Auto) 1.8, Baso % (Auto) 1.2 H, Absolute Neuts (auto) 2.6, Absolute Lymphs (auto) 0.47 L, Nucleated RBC % 0, Diff Path Review May foll, Anisocytosis 2+ 09/10/21 04:54: Sodium 138, Potassium 3.9, Chloride 105, Carbon Dioxide 26.0, Anion Gap 7, BUN 58 H, Creatinine 1.52 H, Estim Creat Clear Calc 44.38, Est GFR (MDRD) Af Amer 59 L, Est GFR (MDRD) Non-Af 49 L, BUN/Creatinine Ratio 38.2 H, Glucose 89, Calcium 6.1 L*, Triglycerides 107, Cholesterol 59, LDL Cholesterol 25, VLDL Cholesterol 21, HDL Cholesterol 13 L Radiography Diagnostic Testing: Radiology Impression Echocardiogram 09/09/21 10:45 Interpretation Summary The study was technically difficult. Moderate segmental systolic dysfunction (see wall motion). The estimated ejection fraction is 40 %. Mildly dilated right ventricle. Mild global right ventricular systolic dysfunction. The left atrium is moderately enlarged. The right atrium is moderately enlarged. There is mild mitral annular calcification. Extension of the mitral annular calcification onto the base of the posterior mitral valve leaflet. Mild diffuse mitral valve thickening. Mild (1+) mitral valve insufficiency. Moderately severe (3+) tricuspid valve insufficiency. Mild diffuse aortic valve thickening. Mild focal aortic valve calcification. Trivial aortic valve insufficiency. Calcified aortic root. Right ventricular systolic pressure estimated to be 55 mmHg. Unable to assess diastolic dysfunction. Ordering Physician: Miguel Wills Referring Physician: Diogenes Suarez Performed By: Renee Brito RDCS Physical Exam Narrative General: NAD HEENT: Normocephalic, atraumatic. Neck: Supple, no JVD. Lungs: Clear anteriorly and posteriorly; no wheezed, rhonchi or rales Abdomen: Normal bowel sounds, abdomen is distended, firm to palpation, nontender, no guarding or rebound. Extremities: There is at least 2-3+ lower extremity pitting edema. Edema noted to b/l thighs. denton with clear urine in bag Assessment & Plan Assessment/Plan (1) CAREY (acute kidney injury): PLAN: -Etiology of CAREY is unclear at this point. Possible component of cardiorenal syndrome. -Fractional excretion of sodium was less than 1% on 09/06/2021 which can be consistent with cardiorenal CAREY. The patient does not appear to be volume depleted on physical examination. -Urine protein to creatinine ratio is 588 mg/g. Serum albumin is 3.1 g/dL. The patient is not nephrotic. -Since the cause of CAREY is unclear and the patient has nonspecific symptoms such as arthralgia, ordered serologies: DS DNA, TORRES, SKEIN YARN DYER HELPER antibody, scleroderma Ab not reportable. pANCA, cANCA, C3/C4 pending. -We will hold off on rechecking renal ultrasound since it was just completed less than 1 month ago. There was no hydronephrosis seen on renal ultrasound done on 08/18/2021. -Overall renal function improved from admission. SCr peaked 3.32mg/dL and today SCr 1.52mg/dL. He has been off of IV fluids since 09/07/21. -Urine output is >2 L in 24h without diuretic. Cumulative I&O patient is net negative 2.6L before starting lasix. Weight 93kg. Recommend strict I&O and daily weights. Also reviewed with patient recommend ~1.5L fluid intake in 24hrs (patient stated at home intake ~2.4L per day). - 09/09 started on lasix 40mg IV bid (Home diuretic regimen lasix 40mg bid and metolazone once weekly). Will also place of 1.5L FR/day. -Recheck volume status, renal function, electrolytes, and acid-base status again tomorrow. -There is no urgent need for kidney replacement therapy. -The patient may ultimately need a kidney biopsy for more definitive diagnosis. - bps acceptable have improved, SBP ~low 100s currently on toprol - Patient has history of BPH and follows Dr. Baxter. Patient had UroLift, less invasive surgery less risk of bleeding but his symptoms recurred. He has irritative and obstructive symptoms of lower urinary tract including hesitancy, intermittent stop and go, difficult to initiate and maintain the urinary stream, and urine retention. Patient required [place] catheterization. Currently having clear urine. To follow up with Dr. Baxter and continue on tamsulosin and finasteride. (2) Chronic kidney disease, stage 3b: PLAN: -Baseline serum creatinine prior to admission in July 2021 was around 1.6 mg/dL. -follows with Dr. Williamson (3) Hypocalcemia: PLAN: -Hypocalcemia appears to be chronic. Patient is on Tums 500mg tid. -Phosphorus was slightly high at 5 mg/dL (stable). However, there is no need for phosphorus binder at this point since phosphorus level is <5.5; currently 3.3. -Magnesium is normal. -The patient is asymptomatic from hypocalcemia without myoclonus or hyperreflexia. -Calcium level is slightly better today at 6.1 mg/dL. -Serum albumin is not very low at 3.2. Ionized calcium is pending. -We will continue to follow calcium and phosphorus level. -I do not see any prior work-up for hypocalcemia on review of record. Ordered: PTH 31.9, Vitamin D 25 hydroxy 20.8. Ionized Calcium and Vitamin D 1,25 pending. (4) Hyponatremia: PLAN: -Serum sodium was just slightly low at 134 mmol/L on 09/07/21. -Serum sodium has improved to 138. -There is no worrisome symptoms of hyponatremia such as headache, nausea, or confusion. -We will monitor serum sodium for now. (5) Atrial fibrillation and flutter: PLAN: - patient has history of chronic diastolic heart failure and Afib. - cardiology following. Patient was started on Amio gtt and to be transitioned to oral amiodarone. On toprol. On anticoagulant therapy. - echo: EF is 40%. Mildly dilated RV, Mild global right ventricular systolic dysfunction, Mild (1+) mitral valve insufficiency, moderately severe (3+) tricuspid valve insufficiency, RVSP 55 mg suggestive of moderately high pulmonary hypertension, unable to assess diastolic dysfunction. Echo 2020 EF 57%. - Patient underwent ablation by EP service in [facility] in December 2020 but was unsuccessful. He is scheduled for repeat ablation in [facility].
[2021-09-10] MEDS: Calcium Carbonate 500 MG Tablet PO ×3 (10:24→16:16)
[2021-09-10] MEDS: APIXABAN 2.5 MG TABLET PO ×2 (10:24→20:56)
[2021-09-10] MEDS: Fluticasone 0.05% 1 SPRAY NASAL.SRY NASAL ×2 (10:25→20:57)
[2021-09-10] MEDS: Iron Polysaccharide Complex 150 MG CAPSULE PO (10:25)
[2021-09-10] MEDS: Allopurinol 300 MG Tablet PO (10:25)
[2021-09-10] MEDS: Metoprolol(XL)Succ 100 MG Tablet PO (10:26)
[2021-09-10 11:09] LABS: Perinuclear Ab (P-ANCA) <1:20 titer (Neg:<1:20)
[2021-09-10] MEDS: Furosemide 40 MG/4 ML Vial IV ×2 (11:40→17:29)
[2021-09-10] MEDS: 0.9% Saline Lock 10 ML Syringe IV ×2 (11:41→17:29)
--- NOTE | 2021-09-10 11:50 | CASEMGMT ---
ROMÁN LANDRY assessment: Face to Face with patient for initial transition planning/care coordination assessment. ROMÁN LANDRY introduced self and role at [facility], pt voices understanding and consents to assessment. Pt is sitting up in chair in no distress on room air. Pt is A/Ox4 and answers all questions appropriately. Care providers, pharmacy, and demographics verified/updated. Presentation: Pt states has been unable to urinate since 1800 on 09/06/21 Admitting dx: CAREY, Afib/flutter w/ RVR PCP: Daniela Specialists: Teri, nephro; Sari, cardio; Royer EP surgeon; Sahil, uro; Gerdamber, [facility] onc/heme Preferred Pharmacy: [facility] Insurance: C-Note Prescription Benefit: [employer] Living Will/HPOA: Pt has LW/HPOA and is aware that they are on file at [facility]. Pt's HPOA is his , Penny Kenney. LNOK: Penny Kenney, ; Zulma Pena, daughter Living Arrangements: Pt lives with in 2 story home and states no concerns at home. Pt is independent with ADL's. Transportation: Pt drives self and states no transportation concerns. DME/HHC: Pt has the following DME: cane, walker, grab bars, shower chair, BP cuff, walk in shower, and prn home oxygen thru [facility]. Pt states no need for any further DME. Pt state has had HHC in the past but has not been to SNF. Pt state that he tracks his BP's and weight at home. Pt states no concerns with going home at time of discharge. Pt is retired. Pt states does not smoke cigarettes or drink ETOH. Pt voices no further concerns/needs. CM to follow for any further discharge planning/needs. Advised pt to ask for CM if any further questions/concerns/needs arise, voices understanding. Pt Goal: Home Plan[place] ROM[place]N LANDRY
[2021-09-10] MEDS: Amiodarone 200 MG Tablet PO ×2 (13:38→20:56)
[2021-09-10] MEDS: Metoprolol(XL)Succ 50 MG Tablet PO (20:56)
[2021-09-10] MEDS: Tamsulosin HCl 0.4 MG Capsule PO (20:56)
[2021-09-10] MEDS: Finasteride 5 MG Tablet PO (20:56)
[2021-09-10] MEDS: Loratadine 10 MG Tablet 5 MG PO (20:57)
[2021-09-10] MEDS: Arthritis Pain Compound 60 CLICK TUBE TOPICAL (20:58)
[2021-09-11] VITALS (11 sets, daily range): BP systolic 97–113; BP diastolic 73–80; PULSE 64–120; RESP 14–18; TEMP 36.5–36.9; O2SAT 94–97
[2021-09-11] MEDS: Levothyroxine 150 MCG Tablet 300 MCG PO (05:21)
[2021-09-11] MEDS: Amiodarone 200 MG Tablet PO ×3 (05:23→20:50)
[2021-09-11 05:47] LABS: Absolute Lymphocyte Count 0.41 X10^3/uL (0.83-4.51); Absolute Neutrophil Count 2.1 X10^3/uL (2.0-7.7); Basophil# 0.03 X10^3/uL; Basophil% 1.1 % (0-1); Eosinophil# 0.03 X10^3/uL; Eosinophils% 1.1 % (0-5); Hematocrit 29.2 % (40-54); Hemoglobin 8.9 g/dL (13.0-16.5); Lymphocyte # 0.41 X10^3/ul (0.83-4.51); Lymphocyte % 14.5 % (19-41); Mean Corp Hgb Conc 30.5 g/dL (32-36); Mean Corpuscular Hgb 27.1 pg (27.0-32.0); Mean Corpuscular Volume 88.8 fL (80-94); Mean Platelet Vol. 9.9 fl (6.2-12.0); Monocyte% 7.1 % (0-10); NRBC Flagged by Analyzer 0 % (0-5); Neutrophil # 2.11 X10^3/uL (2.7-7.7); Neutrophil % 74.4 % (47-70); POSITIVE DIFFERENTIAL YES; POSITIVE MORPHOLOGY YES; Platelet Count 215 K/mm3 (150-450); RBC Distribution Width CV 20.8 % (11.6-14.6); RBC Distribution Width SD 68.1 fl (35.1-43.9); Red Blood Count 3.29 M/mm3 (4.6-6.2); White Blood Count 2.8 K/mm3 (4.4-11.0)
[2021-09-11 05:51] LABS: Differential Indicated SCAN CRITERIA MET
[2021-09-11 06:06] LABS: Anisocytosis 2+; Ovalocyte 1+; Tear Drop Cell 1+
[2021-09-11 06:34] LABS: Anion Gap 7 (5-15); BUN 58 mg/dL (7-18); BUN/Creat Ratio 37.9 RATIO (10-20); Chloride 106 mmol/L (98-107); Creatinine, Serum 1.53 mg/dL (0.70-1.30); EST Glomerular Filtration Rate 48 mL/min (>60); Est Glom Filt Rate - Afr Amer 58 mL/min (>60); Estimated Creatinine Clearance 44.08 ml/min; Glucose 91 mg/dL (74-106); Magnesium 1.8 mg/dL (1.6-2.6); Potassium 3.7 mmol/L (3.5-5.1); Sodium Level 141 mmol/L (136-145)
--- NOTE | 2021-09-11 08:01 | PN.HOSP_ITS ---
Subjective Subjective Seen and examined Follow-up for heart failure, CAREY on CKD, sinus tachycardia, leg swelling and myelofibrosis Amiodarone drip changed to amiodarone oral tablet. Patient feels improvement in leg swelling and abdominal swelling. Objective Data Objective Data Vital Signs: Vital Signs Temp Pulse Resp BP Pulse Ox 97.7 F L 108 H 16 106/73 97 09/11/21 07:50 09/11/21 07:50 09/11/21 07:50 09/11/21 07:50 09/11/21 07:50 Oxygen Delivery Method Room Air Weight: 206 lb 9.17 oz Body Mass Index (BMI) 33.1 Intake & Output: Intake and Output for Last 24 Hours 09/09/21 09/10/21 09/11/21 23:59 23:59 23:59 Intake Total 1383.00 / 1629.68 1720.00 / 1820.00 200 / 200 Output Total 2750 / 3650 3450 / 4750 1625 / 1625 Balance -1367.00 / -2020.32 -1730.00 / -2930.00 -1425 / -1425 Lab / Micro Data Result Diagrams: 09/11/21 05:21 09/11/21 05:21 Labs: Laboratory Results - last 24 hr 09/07/21 05:15: Ionized Calcium 3.4 L, c-ANCA Antibody <1:20, Atypical p-ANCA <1:20, p-ANCA Antibody <1:20, Complement C3 79 L, Complement C4 24 09/11/21 05:21: Sodium 141, Potassium 3.7, Chloride 106, Carbon Dioxide 28.0, Anion Gap 7, BUN 58 H, Creatinine 1.53 H, Estim Creat Clear Calc 44.08, Est GFR (MDRD) Af Amer 58 L, Est GFR (MDRD) Non-Af 48 L, BUN/Creatinine Ratio 37.9 H, Glucose 91, Calcium 6.0 L*, Magnesium 1.8 09/11/21 05:21: WBC 2.8 L, RBC 3.29 L, Hgb 8.9 L, Hct 29.2 L, MCV 88.8, MCH 27.1, MCHC 30.5 L, RDW Std Deviation 68.1 H, RDW Coeff of Rafael 20.8 H, Plt Count 215, MPV 9.9, Immature Gran % (Auto) 1.800 H, Neut % (Auto) 74.4 H, Lymph % (Auto) 14.5 L, [place] % (Auto) 7.1, Eos % (Auto) 1.1, Baso % (Auto) 1.1 H, Absolute Neuts (auto) 2.1, Absolute Lymphs (auto) 0.41 L, Nucleated RBC % 0, Diff Path Review May foll, Anisocytosis 2+, Tear Drop Cells 1+, Ovalocytes 1+ Physical Exam Narrative Seen and examined Blood pressure on lower side, systolic 88/53. Lisinopril. Metoprolol. Diuresis was held at that time but given later on. Shortness of breath mild im provement. Never had paracentesis. Patient not feeling abdominal distress because of his splenomegaly. General: Alert, Oriented x3, Cooperative HEENT: Atraumatic, PERRLA, EOMI, Normocephalic Oral: No Gingival or Mucosal Lesions/ Ulcerations Neck: Supple, No JVD, Negative Carotid Bruits Lungs: Air entry diminished in bilateral lung bases. No crepitation/rhonchi Cardiovascular:Sinus rhythm, PVCs on cafeteria monitor. Normal S1, Normal S2, No murmurs Abdomen: Massive splenomegaly. Abdominal distention, chronic. Ascites decreased. Bowel Sounds Present, Soft, Non Tender : No renal angle tenderness. No suprapubic tenderness. Extremities:pitting edema bilateral decreased below knee level. Capillary Refill Less than 3 Seconds Skin: No rashes, No breakdown Musculoskeletal: No Tenderness to Palpation of Joints or Extremities Neurological: Cranial nerves II-XII grossly intact, DTR 2+/4 and Symmetrical, muscle strength 4/5 at major joints Psych/Mental Status: Normal, appropriate. Assessment & Plan Assessment/Plan (1) CAREY (acute kidney injury): (2) Chronic kidney disease, stage 3b: (3) Hypocalcemia: (4) Hyponatremia: PLAN: Patient admission status changed to inpatient today on 09/10. 1. Dyspnea on minimal exertion, chronic from acute on chronic HFpEF/diastolic heart failure, myelofibrosis with massive splenomegaly: Patient is currently admitted in PCU. Lower extremity edema has improved. Patient has clear lungs on auscultation but is still dyspnea on minimal/mild exertion. Patient saw Dr. Guo in August 27, 2021, office visit reviewed. Last echo in 03/2021 shows mild concentric LVH, normal LV systolic function, EF 57%. RV dilated with systolic function normal. Currently Lasix, metolazone are on hold due to worsening kidney failure. 09/09: Assistant Infant Toddler Teacher consult at the request of nut grinder. 2D echo repeat was done. Patient has increased in the lower extremity edema and Lasix 40 mg IV twice daily started. Heart failure core measures including intake and output, fluid restriction less than 1500 mL, daily weight monitoring, kidney and electrolytes monitoring. 2D echo shows EF 40%, mildly dilated RV with global RV systolic dysfunction. LA, RA moderately enlarged. 1+ MR, moderately severe TR, RVSP 55 mg suggestive of moderately high pulmonary hypertension. 09/11: IV furosemide changed to furosemide 60 mg p.o. twice daily and spironolactone 25 mg daily. Conservative measures are bilateral TRINITY hose thigh- high, fluid restriction 1500 mL, physical exercise walking to improve lower extremity muscle strength might help in leg swelling and heart failure symptoms. 2. CAREY on CKD stage IIIb with history of bladder outlet obstruction due to BPH, status post [place] catheterization: Patient follows with [place] nut grinder Dr. Williamson discussed with. This is comanaged with the nut grinder. Protein to creatinine ratio elevated 588 mg/g. Serum albumin 3.1 g/dL. Nonnephrotic range of proteinuria. Renal ultrasound recently was unremarkable with no hydr onephrosis. Patient has history of BPH and follows Dr. Baxter. Patient had UroLift, less invasive surgery less risk of bleeding but his symptoms recurred. He has irritative and obstructive symptoms of lower urinary tract including hesitancy, intermittent stop and go, difficult to initiate and maintain the urinary stream, and urine retention. Patient required [place] catheterization. Currently having clear urine. Discussed with the urologist Dr. Baxter. Patient on tamsulosin and finasteride. 09/09: Improvement in creatinine 1.55 Lasix resumed as mentioned above. Patient seen by urologist and advised to follow-up with office post surgery after ablation treatment and industrial court magistrate clearance. 09/10: Slight improvement in creatinine. Patient had 2.5 to 3 L dialysis in last 3 days. 09/11: Discussed with nut grinder Dr. Lawrence. We will change her diuretic to the oral. Monitor for ongoing diuresis and if patient does not reaccumulate we will discharge tomorrow. There was discussion about possible paracentesis for ascites with the patient and the nut grinder although not confirmed by imaging recently. Patient abdominal distention is improving on diuretic and he does not feel respiratory distress because of ascites and he also has large spleen which is risk for injury and there is high chance is a 40 accumulation. We agreed to continue diuretic not paracentesis. 3. Electrolyte abnormalities: Patient has severe hypocalcemia: Patient has hyperphosphatemia, high at 5 mg/dL. No indication for phosphate binder. Serum magnesium normal. Serum albumin 3.2. Calcium gluconate 1 g IV piggyback given in ER. Patient does not have symptoms of hypocalcemia or tetany. Ionized pricila cium pending. PTH 31.9 pg/mL, vitamin D 20.8. Vitamin D 125 dihydroxy pending. 09/09: Mild hypokalemia, potassium is getting replaced. Magnesium and phosphorus level normal. Calcium level chronically low even after replacement. Does not have hypocalcemic symptoms. 4. Paroxysmal A. fib: Patient sinus tachycardia with PVC. Patient underwent ablation by EP service in [facility] in December 2020 but was unsuccessful. He is scheduled for repeat ablation in [facility] [place]. Flecainide was held by [facility] when he was admitted in July 2021 due to increased creatinine level. Currently cafeteria monitor shows sinus tachycardia at the rate of 115 to 120/min. Restart flecainide 100 mg 1 p.o. now and then 50 mg twice daily, adjusted to the creatinine clearance. Continue Eliquis. 09/09: In the morning flecainide was changed to full dose. Dr. Shepard is going to change flecainide to amiodarone as flecainide is negative inotropic effect also. 09/10: Tachycardia is improving on amiodarone drip. Flecainide discontinued 09/11: Amiodarone drip transition to amiodarone tablet, prolonged tapering dose as ordered by industrial court magistrate. 5. Hypertension and dyslipidemia: On high intensity statin. 09/09: Blood pressure is on low 100s to low teens 6.. Chronic myelofibrosis/chronic thrombocytopenia/chronic anemia: Patient follows [facility] [place] oncologist Dr. Trejo. The patient on darbepoetin, iron supplement and Fedratinib. Patient had last abdomen pelvis CT in June 2020 which showed severely splenomegaly with heterogeneous appearance and hypodense nodules scattered throughout. He did not show ascites but that CT was more than 1 year ago. He also mentioned a moderate sized adnexal hernia with nondilated small bowel loops extending to the right hemiscrotum and a small hydrocele liver profile shows low transaminases. 09/10: WBC count on lower side. Mild leukopenia. Lymphopenia. Immature granulocytes. Chronic normocytic normochromic anemia. Platelet count normal. 09/11: Leukopenia. Blood counts similar. No acute change. 7. Hypothyroidism on Synthroid. 8. VT prophylaxis on Eliquis. Discontinue if platelet count drops less than 50,000 or hemoglobin less than 8 g% Total time of the visit includes total time spent in counseling or coordination of care, (more than 50% of the total time, spent in obtaining medical information from nurses and other ancillary care providers,explaining to the patient about labs, imaging, diagnosis and management), discussion with consultants, industrial court magistrate and nut grinder, review of labs, echo and imaging is 40 minutes Charges/Coding Visit Charges Inpatient E&M: 60707 Subs Hosp L2
[2021-09-11] MEDS: Fluticasone 0.05% 1 SPRAY NASAL.SRY NASAL ×2 (08:47→20:51)
[2021-09-11] MEDS: Metoprolol(XL)Succ 50 MG Tablet PO ×2 (08:47→20:49)
[2021-09-11] MEDS: Spironolactone 25 MG Tablet PO (08:48)
[2021-09-11] MEDS: Furosemide 40 MG Tablet 60 MG PO ×2 (08:48→17:12)
[2021-09-11] MEDS: Calcium Carbonate 500 MG Tablet PO ×3 (08:48→17:12)
[2021-09-11] MEDS: Allopurinol 300 MG Tablet PO (08:48)
[2021-09-11] MEDS: APIXABAN 2.5 MG TABLET PO ×2 (08:49→20:50)
[2021-09-11 09:02] LABS: Vitamin D 1,25-Dihydroxy <5.0 pg/mL (19.9-79.3)
--- NOTE | 2021-09-11 12:50 | PN.RENAL_ITS ---
Subjective Subjective Sitting in recliner chair. Denies any complaints. States swelling to legs and thighs has improved. Denies any shortness of breath. Objective Data Objective Data Vital Signs: Vital Signs Temp Pulse Resp BP Pulse Ox 97.7 F L 117 H 16 106/73 97 09/11/21 07:50 09/11/21 08:47 09/11/21 07:50 09/11/21 07:50 09/11/21 07:50 Oxygen Delivery Method Room Air Weight: 93.7 kg Body Mass Index (BMI) 33.1 Intake & Output: Intake and Output for Last 24 Hours 09/09/21 09/10/21 09/11/21 23:59 23:59 23:59 Intake Total 1383.00 / 1629.68 1720.00 / 1820.00 760 / 760 Output Total 2750 / 3650 3450 / 4750 1974 Balance -1367.00 / -2020.32 -1730.00 / -2930.00 -1215 / -1215 Lab / Micro Data Result Diagrams: 09/11/21 05:21 09/11/21 05:21 Labs: Laboratory Results - last 24 hr 09/08/21 05:34: Vit D 1,25-Dihydroxy <5.0 L 09/11/21 05:21: Sodium 141, Potassium 3.7, Chloride 106, Carbon Dioxide 28.0, Anion Gap 7, BUN 58 H, Creatinine 1.53 H, Estim Creat Clear Calc 44.08, Est GFR (MDRD) Af Amer 58 L, Est GFR (MDRD) Non-Af 48 L, BUN/Creatinine Ratio 37.9 H, Glucose 91, Calcium 6.0 L*, Magnesium 1.8 09/11/21 05:21: WBC 2.8 L, RBC 3.29 L, Hgb 8.9 L, Hct 29.2 L, MCV 88.8, MCH 27.1, MCHC 30.5 L, RDW Std Deviation 68.1 H, RDW Coeff of Rafael 20.8 H, Plt Count 215, MPV 9.9, Immature Gran % (Auto) 1.800 H, Neut % (Auto) 74.4 H, Lymph % (Auto) 14.5 L, [place] % (Auto) 7.1, Eos % (Auto) 1.1, Baso % (Auto) 1.1 H, Absolute Neuts (auto) 2.1, Absolute Lymphs (auto) 0.41 L, Nucleated RBC % 0, Diff Path Review May foll, Anisocytosis 2+, Tear Drop Cells 1+, Ovalocytes 1+ Physical Exam Narrative General: NAD HEENT: Normocephalic, atraumatic. Neck: Supple, no JVD. Lungs: Clear anteriorly and posteriorly; no wheezed, rhonchi or rales Abdomen: Normal bowel sounds, abdomen is distended, firm to palpation, nontender, no guarding or rebound. Extremities: There is at least 2+ lower extremity pitting edema. Edema noted to b/l thighs. TRINITY hose on [place] with clear urine in bag Assessment & Plan Assessment/Plan (1) CAREY (acute kidney injury): PLAN: -Etiology of CAREY is unclear at this point. Possible component of cardiorenal syndrome. -Fractional excretion of sodium was less than 1% on 09/06/2021 which can be consistent with cardiorenal CAREY. The patient does not appear to be volume depleted on physical examination. -Urine protein to creatinine ratio is 588 mg/g. Serum albumin is 3.1 g/dL. The patient is not nephrotic. -Since the cause of CAREY is unclear and the patient has nonspecific symptoms such as arthralgia, ordered serologies: DS DNA, TORRES, ALTERATION INSPECTOR antibody, scleroderma Ab not reportable, pANCA, cANCA unremarkable, C3 slightly low at 79, C4 normal. -We will hold off on rechecking renal ultrasound since it was just completed less than 1 month ago. There was no hydronephrosis seen on renal ultrasound done on 08/18/2021. -Overall renal function improved from admission. SCr peaked 3.32mg/dL and SCr leveled off 1.5mg/dL last 3 days. He has been off of IV fluids since 09/07/21. - volume status improving -Urine output >2 L in 24h without diuretic. Cumulative I&O patient is net negative 2.6L before starting lasix. Weight 93kg. Recommend strict I&O and daily weights. Also reviewed with patient recommend ~1.5L fluid intake in 24hrs (patient stated at home intake ~2.4L per day). - 09/09 started on lasix 40mg IV bid (Home diuretic regimen lasix 40mg bid and metolazone once weekly). Cumulative I&O now is net negative 6.5L. Stopped twice daily IV Lasix and now on Lasix 60 mg twice daily and Aldactone 25 mg daily. Continue 1.5L FR/day. Discussed this with patient. -Recheck volume status, renal function, electrolytes, and acid-base status again tomorrow. -There is no urgent need for kidney replacement therapy. -The patient may ultimately need a kidney biopsy for more definitive diagnosis. - bps acceptable have improved with reduing toprol to 50mg bid, SBP ~low 100s - Patient has history of BPH and follows Dr. Baxter. Patient had UroLift, less invasive surgery less risk of bleeding but his symptoms recurred. He has irritative and obstructive symptoms of lower urinary tract including hesitancy, intermittent stop and go, difficult to initiate and maintain the urinary stream, and urine retention. Patient required [place] catheterization. Currently having clear urine. To follow up with Dr. Baxter and continue on tamsulosin and finasteride. (2) Chronic kidney disease, stage 3b: PLAN: -Baseline serum creatinine prior to admission in July 2021 was around 1.6 mg/dL. -follows with Dr. Williamson - patient has hospital follow up 10/01 @2:30 (3) Hypocalcemia: PLAN: -Hypocalcemia appears to be chronic. Patient is on Tums 500mg tid. -Phosphorus was slightly high at 5 mg/dL (stable). However, there is no need for phosphorus binder at this point since phosphorus level is <5.5; currently 3.3. -Magnesium is normal. -The patient is asymptomatic from hypocalcemia without myoclonus or hyperreflexia. -Calcium level is ~6-6.2 mg/dL. -Serum albumin is not very low at 3.2. Ionized calcium 3.4 -We will continue to follow calcium and phosphorus level. -I do not see any prior work-up for hypocalcemia on review of record. Ordered: PTH 31.9, Vitamin D 25 hydroxy 20.8. Ionized Calcium 3.4, Vitamin D 1,25 <5.0. (4) Hyponatremia: PLAN: -Serum sodium was just slightly low at 134 mmol/L on 09/07/21. -Serum sodium has improved to 141. -There is no worrisome symptoms of hyponatremia such as headache, nausea, or confusion. -We will monitor serum sodium for now. (5) Atrial fibrillation and flutter: PLAN: - patient has history of chronic diastolic heart failure and Afib. - cardiology following. Patient was started on Amio gtt and to be transitioned to oral amiodarone. On toprol. On anticoagulant therapy. - echo: EF is 40%. Mildly dilated RV, Mild global right ventricular systolic dysfunction, Mild (1+) mitral valve insufficiency, moderately severe (3+) tricuspid valve insufficiency, RVSP 55 mg suggestive of moderately high pulmonary hypertension, unable to assess diastolic dysfunction. Echo 2020 EF 57%. - per cardiology he may need to have repeat diagnostic cardiac catheterization to redefine his coronary anatomy - Patient underwent ablation by EP service in [facility] in December 2020 but was unsuccessful. He is scheduled for repeat ablation in [facility].
[2021-09-11 15:00] LABS: Pathologist Review Reviewed
[2021-09-11 15:08] LABS: Pathologist Review Reviewed
--- NOTE | 2021-09-11 19:05 | PN.CARD_ITS ---
Subjective Subjective The patient stayed he feels as if he is losing more weight with his diuresis. He believes his breathing is much better and he has been able to walk in the hallway and breathe much better. He also believes his abdominal girth is not as prominent and his lower extremity edema is are improving slowly. Objective Data Vital Signs: Vital Signs Temp Pulse Resp BP Pulse Ox 98.0 F 119 H 16 113/79 97 09/11/21 17:11 09/11/21 17:11 09/11/21 17:11 09/11/21 17:11 09/11/21 17:11 Oxygen Delivery Method Room Air Weight: 206 lb 9.17 oz Body Mass Index (BMI) 33.1 Intake & Output: Intake and Output for Last 24 Hours 09/09/21 09/10/21 09/11/21 23:59 23:59 23:59 Intake Total 1383.00 / 1629.68 1720.00 / 1820.00 1210 / 1210 Output Total 2750 / 3650 3450 / 4750 3000 / 3000 Balance -1367.00 / -2020.32 -1730.00 / -2930.00 -1790 / -1790 Lab / Micro Data Result Diagrams: 09/11/21 05:21 09/11/21 05:21 Labs: Laboratory Results - last 24 hr 09/08/21 05:34: Vit D 1,25-Dihydroxy <5.0 L 09/10/21 04:54: Diff Path Review Reviewed 09/11/21 05:21: Sodium 141, Potassium 3.7, Chloride 106, Carbon Dioxide 28.0, Anion Gap 7, BUN 58 H, Creatinine 1.53 H, Estim Creat Clear Calc 44.08, Est GFR (MDRD) Af Amer 58 L, Est GFR (MDRD) Non-Af 48 L, BUN/Creatinine Ratio 37.9 H, Glucose 91, Calcium 6.0 L*, Magnesium 1.8 09/11/21 05:21: WBC 2.8 L, RBC 3.29 L, Hgb 8.9 L, Hct 29.2 L, MCV 88.8, MCH 27.1, MCHC 30.5 L, RDW Std Deviation 68.1 H, RDW Coeff of Rafael 20.8 H, Plt Count 215, MPV 9.9, Immature Gran % (Auto) 1.800 H, Neut % (Auto) 74.4 H, Lymph % (Auto) 14.5 L, [place] % (Auto) 7.1, Eos % (Auto) 1.1, Baso % (Auto) 1.1 H, Absolute Neuts (auto) 2.1, Absolute Lymphs (auto) 0.41 L, Nucleated RBC % 0, Diff Path Review Reviewed, Anisocytosis 2+, Tear Drop Cells 1+, Ovalocytes 1+ Cardiology Labs/Tests 09/11/21 05:21: Sodium 141, Potassium 3.7, Chloride 106, Carbon Dioxide 28.0, Anion Gap 7, BUN 58 H, Creatinine 1.53 H, Est GFR (MDRD) Af Amer 58 L, Est GFR (MDRD) Non-Af 48 L, BUN/Creatinine Ratio 37.9 H, Glucose 91, Calcium 6.0 L*, Magnesium 1.8 09/11/21 05:21: WBC 2.8 L, RBC 3.29 L, Hgb 8.9 L, Hct 29.2 L, MCV 88.8, MCH 27.1, MCHC 30.5 L, Plt Count 215, MPV 9.9, Immature Gran % (Auto) 1.800 H, Neut % (Auto) 74.4 H, Lymph % (Auto) 14.5 L, [place] % (Auto) 7.1, Eos % (Auto) 1.1, Baso % (Auto) 1.1 H, Absolute Neuts (auto) 2.1, Nucleated RBC % 0 Rhythm: Sinus rhythm/episodes of PAT/possible atrial flutter Physical Exam Narrative This is a 71-year-old white male who appears to be resting reasonably comfortably at the moment in no acute distress. Const alert, oriented x3 and no apparent distress Orientation / Consciousness: awake HEENT normocephalic, head/scalp atraumatic and hearing grossly normal bilaterally Eyes PERRL, EOMs intact bilaterally and conjunctivae normal Neck full ROM, supple and no JVD Resp clear to auscultation bilaterally Cardio regular rate, S1 normal heart sound and S2 normal heart sound Rate: tachycardic GI GI Narrative: Distended appearing Extremity General Extremity: edema bilateral lower extremity Details: moderate Skin no rashes or lesions noted Neuro oriented x3, moves all extremities, no focal motor deficits and no sensory deficits noted Psych mental status grossly normal Procedure Criteria Type of Procedure Procedure Type: Elective Elective Risks - COVID COVID Risk Discussion: The surgeon/proceduralist and patient have discussed in detail the risk of exposure to and/or potential harm posed by the COVID-19 virus with having a surgery/procedure at this time versus the risk of delaying the surgery/procedure. It is not possible to know either the risk of delaying the surgery or procedure or chance of getting an infection with perfect accuracy, but a joint decision was made between the patient and the surgeon/proceduralist to proceed at this time with the scheduled surgery/procedure as indicated on the consent form. Assessment & Plan Assessment & Plan (1) Atrial fibrillation and flutter: Plan: The patient continues with his atrial dysrhythmia. He is continuing rate control therapy, antiarrhythmic therapy, and anticoagulant therapy. Again he is tentatively scheduled for a future EP evaluation for additional EPS/RFA. However, as previously noted, it may be reasonable, once the patient is more stable, including his volume status, renal function, hemoglobin, etc. as to whether or not, based upon what appears to be a change in his left ventricular wall motion systolic function, reassessment in the cardiac catheterization laboratory prior to prior such procedures. If for what ever reason, including his renal function, is not felt this is feasible that he may need to continue medical therapy with updates to his santa's helper of his changes as to whether or not that has an impact on how they want to proceed with his cardiac dysrhythmia evaluation and care. (2) CHF (congestive heart failure): Plan: The patient appears to be gradually improving with his diuresis. He will continue medical therapy. Nephrology input is most appreciated. (3) CAD (coronary artery disease): Plan: Again he will continue medical therapy. If he is able to at some point time it may be reasonable to consider repeat diagnostic cardiac catheterization. However, again this would occur when he is clinically stable with respect to his multiple comorbidities as noted above. (4) Acute on chronic kidney failure: Plan: His renal function overall has improved. His creatinine remains somewhat elevated. He will continue medical therapy with nephrology input. (5) Hyperlipidemia: Plan: He will continue risk factor evaluation care as deemed appropriate. (6) Myelofibrosis: Problem Details: fedratinib and darbepoetin Plan: He attributes his anemia to his myelofibrosis. He will need to continue evaluation care per his other physicians for this diagnosis. A/P Addt'l Comments Addt'l Comments This note was generated using a voice recognition system and there may be incorrect words, spelling or punctuation that were not noted when reviewing the office note prior to saving.
[2021-09-11] MEDS: Tamsulosin HCl 0.4 MG Capsule PO (20:50)
[2021-09-11] MEDS: Loratadine 10 MG Tablet 5 MG PO (20:50)
[2021-09-11] MEDS: Arthritis Pain Compound 60 CLICK TUBE TOPICAL (20:51)
[2021-09-11] MEDS: Finasteride 5 MG Tablet PO (20:53)
[2021-09-12 02:15] VITALS: BP 96/68; PULSE 115; RESP 14; TEMP 36.7; O2SAT 96
[2021-09-12 04:00] VITALS: PULSE 116
[2021-09-12] MEDS: Amiodarone 200 MG Tablet PO ×2 (06:14→13:27)
[2021-09-12] MEDS: Levothyroxine 150 MCG Tablet 300 MCG PO (06:14)
[2021-09-12 06:42] LABS: Absolute Lymphocyte Count 0.45 X10^3/uL (0.83-4.51); Absolute Neutrophil Count 2.5 X10^3/uL (2.0-7.7); Basophil# 0.03 X10^3/uL; Basophil% 0.9 % (0-1); Eosinophil# 0.03 X10^3/uL; Eosinophils% 0.9 % (0-5); Hematocrit 29.3 % (40-54); Lymphocyte # 0.45 X10^3/ul (0.83-4.51); Lymphocyte % 13.8 % (19-41); Mean Corp Hgb Conc 30.7 g/dL (32-36); Mean Corpuscular Hgb 27.2 pg (27.0-32.0); Mean Corpuscular Volume 88.5 fL (80-94); Mean Platelet Vol. 10.8 fl (6.2-12.0); Monocyte# 0.21 X10^3/uL; Monocyte% 6.4 % (0-10); NRBC Flagged by Analyzer 0 % (0-5); Neutrophil # 2.49 X10^3/uL (2.7-7.7); Neutrophil % 76.5 % (47-70); POSITIVE DIFFERENTIAL YES; POSITIVE MORPHOLOGY YES; Platelet Count 252 K/mm3 (150-450); RBC Distribution Width CV 20.9 % (11.6-14.6); RBC Distribution Width SD 67.2 fl (35.1-43.9); Red Blood Count 3.31 M/mm3 (4.6-6.2); White Blood Count 3.3 K/mm3 (4.4-11.0)
[2021-09-12 06:48] LABS: Differential Indicated SCAN CRITERIA MET
[2021-09-12 06:55] LABS: Anisocytosis 2+
[2021-09-12 06:56] LABS: Atypical Lymphocyte 1+ %
[2021-09-12 07:00] VITALS: PULSE 111
[2021-09-12 07:27] LABS: Anion Gap 5 (5-15); BUN 55 mg/dL (7-18); BUN/Creat Ratio 32.2 RATIO (10-20); Calcium,Total 6.3 mg/dL (8.5-10.1); Chloride 108 mmol/L (98-107); Creatinine, Serum 1.71 mg/dL (0.70-1.30); EST Glomerular Filtration Rate 42 mL/min (>60); Est Glom Filt Rate - Afr Amer 51 mL/min (>60); Estimated Creatinine Clearance 39.44 ml/min; Glucose 89 mg/dL (74-106); Sodium Level 141 mmol/L (136-145)
[2021-09-12 08:15] VITALS: BP 109/83; PULSE 119; RESP 16; TEMP 36.9; O2SAT 96
[2021-09-12] MEDS: Calcium Carbonate 500 MG Tablet PO ×2 (08:23→12:15)
[2021-09-12] MEDS: Fluticasone 0.05% 1 SPRAY NASAL.SRY NASAL (08:23)
[2021-09-12] MEDS: APIXABAN 2.5 MG TABLET PO (08:23)
[2021-09-12 08:24] VITALS: PULSE 119
[2021-09-12] MEDS: Metoprolol(XL)Succ 50 MG Tablet PO (08:24)
[2021-09-12] MEDS: Furosemide 40 MG Tablet 60 MG PO (08:24)
[2021-09-12] MEDS: Iron Polysaccharide Complex 150 MG CAPSULE PO (08:24)
[2021-09-12] MEDS: Spironolactone 25 MG Tablet PO (08:24)
[2021-09-12] MEDS: Allopurinol 300 MG Tablet PO (08:25)
--- NOTE | 2021-09-12 09:39 | DS.PCM_ITS ---
Providers Date of Admission: 09/10/21 Date of Discharge: 09/12/21 Primary Care Physician: Dr. Diogenes Suarez DO Consultations 09/06/21 10:27 Consult: Nephrology Routine Consulting Provider: Kanwal Williamson Reason for Consult: Renal failure EMERGENT Consult: No MD Notified: Yes Date Notified: 09/06/21 Time Notified: 10:27 Method of Notification: Answering Service 09/08/21 17:29 Consult: Urology Routine Consulting Provider: Bahman Baxter Reason for Consult: BPH WITH RUBALCAVA, on Montgomery EMERGENT Consult: No MD Notified: Yes Date Notified: 09/08/21 Time Notified: 14:30 Method of Notification: Verbal 09/09/21 09:38 Consult: Cardiology Routine Consulting Provider: He Shepard Reason for Consult: PAFIB, Diastolic HF, Limited ECHO ordered EMERGENT Consult: No MD Notified: Yes Date Notified: 09/09/21 Time Notified: 09:38 Method of Notification: Text Reason For Visit: CAREY Diagnosis Discharge Diagnosis (1) Atrial fibrillation and flutter: Status: Acute Code(s): I48.91 - Unspecified atrial fibrillation; I48.92 - Unspecified atrial flutter (2) CHF (congestive heart failure): Status: Acute Code(s): I50.9 - Heart failure, unspecified (3) CAD (coronary artery disease): Status: Acute Code(s): I25.10 - Atherosclerotic heart disease of [place] coronary artery without angina pectoris (4) Acute on chronic kidney failure: Status: Chronic Code(s): N17.9 - Acute kidney failure, unspecified; N18.9 - Chronic kidney disease, unspecified (5) Hyperlipidemia: Status: Chronic Code(s): E78.5 - Hyperlipidemia, unspecified (6) Myelofibrosis: Status: Chronic Code(s): D75.81 - Myelofibrosis Medications at Discharge Home Medications allopurinol 300 mg PO DAILY 02/04/18 finasteride 5 mg PO QHS 02/04/18 gemfibrozil 600 mg PO DAILY 02/04/18 alfuzosin 10 mg PO QHS 04/21/20 fedratinib 200 mg PO QHS 04/21/20 darbepoetin aster in polysorbat 100 mcg/0.5 mL in polysorbate injection syringe 100 mcg SC Q14D 05/15/20 levothyroxine 112 mcg tablet 300 mcg PO DAILY tab 08/13/20 fluticasone propionate 1 spray INTRANASAL BID 08/13/21 calcium carbonate 600 mg PO TID #0 tab 08/20/21 apixaban 2.5 mg tablet 2.5 mg PO BID #180 tab 09/01/21 amiodarone 200 mg PO TID #90 tab 09/12/21 furosemide 60 mg PO BIDLX #90 tab 09/12/21 metoprolol succinate 100 mg PO BID #0 tab 09/12/21 polysaccharide iron complex [Ferrex 150] 150 mg PO QODAY 30 Days #30 cap 09/12/21 spironolactone 25 mg PO DAILY #30 tab 09/12/21 Hospital Course Summary of Care Provided Hospital Course: This 71-year-old question gentleman was admitted with inability to urinate, urine retention. He also had massive gaining weight, abdominal swelling, leg swelling and acute kidney injury on CKD. Patient has shortness of breath with exertion. Chronic hypocalcemia and hyperphosphatemia. His further hospital course, assessment, evaluation and management as follows 1. Dyspnea on minimal exertion, chronic from acute on chronic HFpEF/diastolic heart failure, myelofibrosis with massive splenomegaly: Patient was admitted in PCU. Lower extremity edema has improved. Patient has clear lungs on auscultation but is still dyspnea on minimal/mild exertion. Patient saw Dr. Guo in August 27, 2021, office visit reviewed. Last echo in 03/2021 shows mild concentric LVH, normal LV systolic function, EF 57%. RV dilated with systolic function normal. Currently Lasix, metolazone are on hold due to worsening kidney failure. 09/09: Sandblasting Supervisor consult at the request of rn transitional care. 2D echo repeat was done. Patient has increased in the lower extremity edema and Lasix 40 mg IV twice daily started. Heart failure core measures including intake and output, fluid restriction less than 1500 mL, daily weight monitoring, kidney and electrolytes monitoring. 2D echo shows EF 40%, mildly dilated RV with global RV systolic dysfunction. LA, RA moderately enlarged. 1+ MR, moderately severe TR, RVSP 55 mg suggestive of moderately high pulmonary hypertension. 09/11: IV furosemide changed to furosemide 60 mg p.o. twice daily and spironolactone 25 mg daily. 09/12: Patient is discharged on furosemide 60 mg p.o. twice daily and spironolactone 25 mg daily. Advised to follow-up with rn transitional care in 1 to 2 weeks.Conservative measures are bilateral TRINITY hose thigh-high, fluid restriction 1500 mL, physical exercise walking to improve lower extremity muscle strength might help in leg swelling and heart failure symptoms. 2. CAREY on CKD stage IIIb with history of bladder outlet obstruction due to BPH, status post Montgomery catheterization: Patient follows with [place] rn transitional care Dr. Williamson discussed with. This is comanaged with the rn transitional care. Protein to creatinine ratio elevated 588 mg/g. Serum albumin 3.1 g/dL. Nonnephrotic range of proteinuria. Renal ultrasound recently was unremarkable with no hydronephrosis. Patient has history of BPH and follows Dr. Baxter. Patient had UroLift, less invasive surgery less risk of bleeding but his symptoms recurred. He has irritative and obstructive symptoms of lower urinary tract including hesi tancy, intermittent stop and go, difficult to initiate and maintain the urinary stream, and urine retention. Patient required [place] catheterization. Currently having clear urine. Discussed with the urologist Dr. Baxter. Patient on tamsulosin and finasteride. 09/09: Improvement in creatinine 1.55 Lasix resumed as mentioned above. Patient seen by urologist and advised to follow-up with office post surgery after ablation treatment and openstack developer clearance. 09/10: Slight improvement in creatinine. Patient had 2.5 to 3 L dialysis in last 3 days. 09/11: Discussed with rn transitional care Dr. Lawrence. We will change her diuretic to the oral. Monitor for ongoing diuresis and if patient does not reaccumulate we will discharge tomorrow. There was discussion about possible paracentesis for ascites with the patient and the rn transitional care although not confirmed by imaging recently. Patient abdominal distention is improving on diuretic and he does not feel respiratory distress because of ascites and he also has large spleen which is risk for injury and there is high chance is a 40 accumulation. We agreed to continue diuretic not paracentesis. 09/12: Mild increase in creatinine 1.5-1.7 but this is the patient's baseline which runs around 1.8. 3. Electrolyte abnormalities: Patient has severe hypocalcemia: Patient has hyperphosphatemia, high at 5 mg/dL. No indication for phosphate binder. Serum magnesium normal. Serum albumin 3.2. Calcium gluconate 1 g IV piggyback given in ER. Patient does not have symptoms of hypocalcemia or tetany. Ionized calcium pending. PTH 31.9 pg/mL, vitamin D 20.8. Vitamin D 125 dihydroxy pending. 09/09: Mild hypokalemia, potassium is getting replaced. Magnesium and phosphorus level normal. Calcium level chronically low even after replacement. Does not have hypocalcemic symptoms. 09/12: Hypokalemia resolved. Hyperphosphatemia resolved. Chronic hypocalcemia, did not respond with IV calcium gluconate 4. Paroxysmal A. fib: Patient sinus tachycardia with PVC. Patient underwent ablation by EP service in [facility] in December 2020 but was unsuccessful. He is scheduled for repeat ablation in [facility]. Flecainide was held by [facility] when he was admitted in July 2021 due to increased creatinine level. Currently environmental monitoring technician shows sinus tachycardia at the rate of 115 to 120/min. Restart flecainide 100 mg 1 p.o. now and then 50 mg twice daily, adjusted to the creatinine clearance. Continue Eliquis. 09/09: In the morning flecainide was changed to full dose. Dr. Shepard is going to change flecainide to amiodarone as flecainide is negative inotropic effect also. 09/10: Tachycardia is improving on amiodarone drip. Flecainide discontinued 09/11: Amiodarone drip transition to amiodarone tablet, prolonged tapering dose a s ordered by openstack developer. 09/12: Prescription for amiodarone tapering dose sent to the patient's pharmacy. 5. Hypertension and dyslipidemia: On high intensity statin. 09/09: Blood pressure is on low 100s to low teens 09/12: Blood pressure in 100s, since his baseline. No dizziness. Patient comfortable walking around the hallway. 6.. Chronic myelofibrosis/chronic thrombocytopenia/chronic anemia: Patient follows [facility] oncologist Dr. Trejo. The patient on darbepoetin, iron supplement and Fedratinib. Patient had last abdomen pelvis CT in June 2020 which showed severely splenomegaly with heterogeneous appearance and hypodense nodules scattered throughout. He did not show ascites but that CT was more than 1 year ago. He also mentioned a moderate sized adnexal hernia with nondilated small bowel loops extending to the right hemiscrotum and a small hydrocele liver profile shows low transaminases. 09/10: WBC count on lower side. Mild leukopenia. Lymphopenia. Immature g ranulocytes. Chronic normocytic normochromic anemia. Platelet count normal. 09/11: Leukopenia. Blood counts similar. No acute change. 09/12: All 3 cell counts on baseline. Platelet count 252,000. 7. Hypothyroidism on Synthroid. 8. VT prophylaxis on Eliquis. Discontinue if platelet count drops less than 50,000 or hemoglobin less than 8 g% Discharge medication reconciliation done. Discharge follow-up instructions completed. Discharge process discussed with the patient and all questions were answered to patient's satisfaction. Advised to follow-up with [facility] oncologist, [facility] physician, Dr. Guo and rn transitional care Dr. Williamson. Follow-up with urologist Dr. Baxter. Patient is discharged with a Montgomery catheter. The patient is satisfied with the plan Total time spent, exact 35 minutes on discharge meds reconciliation, examination, coordination of care with nurses and ancillary staff, review of imaging and blood test and discussion with the patient on follow-up instructions Physical Exam Narrative Seen and examined Blood pressure in systolic 100s. General: Alert, Oriented x3, Cooperative HEENT: Atraumatic, PERRLA, EOMI, Normocephalic Oral: No Gingival or Mucosal Lesions/ Ulcerations Neck: Supple, No JVD, Negative Carotid Bruits Lungs: Air entry diminished in bilateral lung bases. No crepitation/rhonchi Cardiovascular:Sinus rhythm, PVCs on environmental monitoring technician. Normal S1, Normal S2, No murmurs Abdomen: Massive splenomegaly. Abdominal distention, chronic. Ascites improved bowel Sounds Present, Soft, Non Tender : No renal angle tenderness. No suprapubic tenderness. Extremities:pitting edema bilateral decreased below knee level. Improvement in anasarca. Capillary Refill Less than 3 Seconds Skin: No rashes, No breakdown Musculoskeletal: No Tenderness to Palpation of Joints or Extremities Neurological: Cranial nerves II-XII grossly intact, DTR 2+/4 and Symmetrical, muscle strength 4/5 at major joints Psych/Mental Status: Normal, appropriate. Weight / BMI Weight Weight: 204 lb 2.369 oz Body Mass Index (BMI) 33.1 ABG / Lab / Microbiology Data Result Diagrams: 09/12/21 05:55 09/12/21 05:55 Laboratory: Laboratory Results - last 24 hr 09/10/21 04:54: Diff Path Review Reviewed 09/11/21 05:21: Diff Path Review Reviewed 09/12/21 05:55: WBC 3.3 L, RBC 3.31 L, Hgb 9.0 L, Hct 29.3 L, MCV 88.5, MCH 27.2, MCHC 30.7 L, RDW Std Deviation 67.2 H, RDW Coeff of Rafael 20.9 H, Plt Count 252, MPV 10.8, Immature Gran % (Auto) 1.500 H, Neut % (Auto) 76.5 H, Lymph % (Auto) 13.8 L, [place] % (Auto) 6.4, Eos % (Auto) 0.9, Baso % (Auto) 0.9, Absolute Neuts (auto) 2.5, Absolute Lymphs (auto) 0.45 L, Nucleated RBC % 0, Diff Path Review May foll, Atypical Lymphocytes 1+, Anisocytosis 2+ 09/12/21 05:55: Sodium 141, Potassium 4.0, Chloride 108 H, Carbon Dioxide 28.0, Anion Gap 5, BUN 55 H, Creatinine 1.71 H, Estim Creat Clear Calc 39.44, Est GFR (MDRD) Af Amer 51 L, Est GFR (MDRD) Non-Af 42 L, BUN/Creatinine Ratio 32.2 H, Glucose 89, Calcium 6.3 L* Meaningful Use Info Meaningful Use Diagnoses (Choose all that apply): None applicable Discharge Plan Admission Admit Date/Time: 09/10/21 08:26 Attending Provider: Miguel Wills Primary Care Provider: Diogenes Suarez Consulting Providers: Kanwal Williamson ; Bahman Baxter ; He Shepard Instructions Additional Instructions / Restrictions: Fluid restriction 1500 mL daily. Advised thigh-high TRINITY hose while walking on feet. Montgomery catheter care, cleaning daily Patient has follow-up with EP in clinic clinic for ablation for A. fib. Follow- up with oncology Dr. Holliday in [facility] for myelofibrosis Discharge Orders/Prescriptions Prescriptions: New furosemide 40 mg Tablet 60 mg PO BIDLX Qty: 90 RF: 2 amiodarone 200 mg Tablet 200 mg PO TID Qty: 90 RF: 0 spironolactone 25 mg Tablet 25 mg PO DAILY Qty: 30 RF: 1 Continued levothyroxine 112 mcg tablet 300 mcg PO DAILY RF: 0 gemfibrozil 600 MG tablet 600 mg PO DAILY RF: 0 allopurinol 300 MG tablet 300 mg PO DAILY RF: 0 finasteride 5 MG tablet 5 mg PO QHS RF: 0 alfuzosin 10 MG tablet extended release 24 hr 10 mg PO QHS RF: 0 fedratinib 100 MG capsule 200 mg PO QHS RF: 0 darbepoetin aster in polysorbat 100 mcg/0.5 mL syringe 100 mcg SC Q14D RF: 0 fluticasone propionate 50 mcg/actuation [place],Suspension 1 spray INTRANASAL BID RF: 0 calcium carbonate 600 MG tablet 600 mg PO TID Qty: 0 RF: 0 metoprolol succinate 100 mg tablet extended release 24 hr 100 mg PO BID Qty: 0 RF: 0 apixaban 2.5 mg tablet 2.5 mg PO BID Qty: 180 RF: 3 Changed polysaccharide iron complex [Ferrex 150] 150 mg iron Capsule 150 mg PO QODAY 30 Days Qty: 30 RF: 0 Discontinued furosemide [Lasix] 40 mg tablet 40 mg PO BID RF: 0 flecainide 100 mg tablet 100 mg PO Q12H Qty: 180 RF: 3 metolazone 2.5 mg tablet 2.5 mg PO .weekly Qty: 2 RF: 0 Referrals / Follow Up: Rubén Guo MD [STAFF PHYSICIAN] - Within 1 Month Kanwal Williamson MD [STAFF PHYSICIAN] - Within 2 Weeks Bahman Baxter MD [STAFF PHYSICIAN] - Within 2 Weeks Diogenes Suarez DO [Primary Care Provider] - Disposition Disposition (needs filled in before D/C Order can be placed): Home, Self Care Charges/Coding Visit Charges Inpatient E&M: [id number] [facility]
--- NOTE | 2021-09-12 09:39 | DCINST_ITS ---
Discharge Instructions Diet Discharge Diet: 6 Cup Fluid Restriction and 2000 mg Sodium Diet Activity Discharge Activity: Return to Normal Activity and May Not Drive Weight Bearing Status: Weight bearing as tolerated Dressing / Incision Call your doctor if you observe: Fever of 101 or Higher, Coldness, Increased Pain, Numbness or Tingling, Change in Color, Inability to urinate, Inability to have a bowel movement, Shortness of breath, Dizziness, Fainting spells, Swelling in the ankles, Chest pain, Prolonged hiccupping, Increased palpitations (irregular heartbeat), Calf discomfort and Uncontrolled pain Follow Up Care Test Results: Test results from this visit will be discussed in further detail at your follow-up appointment, if applicable. Discharge Plan Admission Admit Date/Time: 09/10/21 08:26 Attending Provider: Miguel Wills Primary Care Provider: Diogenes Suarez Consulting Providers: Kanwal Williamson ; Bahman Baxter ; He Shepard Instructions Additional Instructions / Restrictions: Fluid restriction 1500 mL daily. Advised thigh-high TRINITY hose while walking on feet. Montgomery catheter care, cleaning daily Patient has follow-up with EP in clinic clinic for ablation for A. fib. Follow- up with oncology Dr. Holliday in [facility] for myelofibrosis Discharge Orders/Prescriptions Prescriptions: New furosemide 40 mg Tablet 60 mg PO BIDLX Qty: 90 RF: 2 amiodarone 200 mg Tablet 200 mg PO TID Qty: 90 RF: 0 spironolactone 25 mg Tablet 25 mg PO DAILY Qty: 30 RF: 1 Continued levothyroxine 112 mcg tablet 300 mcg PO DAILY RF: 0 gemfibrozil 600 MG tablet 600 mg PO DAILY RF: 0 allopurinol 300 MG tablet 300 mg PO DAILY RF: 0 finasteride 5 MG tablet 5 mg PO QHS RF: 0 alfuzosin 10 MG tablet extended release 24 hr 10 mg PO QHS RF: 0 fedratinib 100 MG capsule 200 mg PO QHS RF: 0 darbepoetin aster in polysorbat 100 mcg/0.5 mL syringe 100 mcg SC Q14D RF: 0 fluticasone propionate 50 mcg/actuation [place],Suspension 1 spray INTRANASAL BID RF: 0 calcium carbonate 600 MG tablet 600 mg PO TID Qty: 0 RF: 0 metoprolol succinate 100 mg tablet extended release 24 hr 100 mg PO BID Qty: 0 RF: 0 apixaban 2.5 mg tablet 2.5 mg PO BID Qty: 180 RF: 3 Changed polysaccharide iron complex [Ferrex 150] 150 mg iron Capsule 150 mg PO QODAY 30 Days Qty: 30 RF: 0 Discontinued furosemide [Lasix] 40 mg tablet 40 mg PO BID RF: 0 flecainide 100 mg tablet 100 mg PO Q12H Qty: 180 RF: 3 metolazone 2.5 mg tablet 2.5 mg PO .weekly Qty: 2 RF: 0 Referrals / Follow Up: Rubén Guo MD [STAFF PHYSICIAN] - Within 1 Month Kanwal Williamson MD [STAFF PHYSICIAN] - Within 2 Weeks Bahman Baxter MD [STAFF PHYSICIAN] - Within 2 Weeks Diogenes Suarez DO [Primary Care Provider] - Disposition Disposition (needs filled in before D/C Order can be placed): Home, Self Care
--- NOTE | 2021-09-12 09:59 | PN.RENAL_ITS ---
Subjective Subjective Sitting in chair, no complaints. Objective Data Objective Data Vital Signs: Vital Signs Temp Pulse Resp BP Pulse Ox 98.5 F 119 H 16 109/83 H 96 09/12/21 08:15 09/12/21 08:24 09/12/21 08:15 09/12/21 08:15 09/12/21 08:15 Oxygen Delivery Method Room Air Weight: 92.6 kg Body Mass Index (BMI) 33.1 Intake & Output: Intake and Output for Last 24 Hours 09/10/21 09/11/21 09/12/21 23:59 23:59 23:59 Intake Total 1720.00 / 1820.00 1210 / 1310 300 / 300 Output Total 3450 / 4750 3000 / 3650 1325 / 1325 Balance -1730.00 / -2930.00 -1790 / -2340 -1025 / -1025 Lab / Micro Data Result Diagrams: 09/12/21 05:55 09/12/21 05:55 Labs: Laboratory Results - last 24 hr 09/10/21 04:54: Diff Path Review Reviewed 09/11/21 05:21: Diff Path Review Reviewed 09/12/21 05:55: WBC 3.3 L, RBC 3.31 L, Hgb 9.0 L, Hct 29.3 L, MCV 88.5, MCH 27.2, MCHC 30.7 L, RDW Std Deviation 67.2 H, RDW Coeff of Rafael 20.9 H, Plt Count 252, MPV 10.8, Immature Gran % (Auto) 1.500 H, Neut % (Auto) 76.5 H, Lymph % (Auto) 13.8 L, [place] % (Auto) 6.4, Eos % (Auto) 0.9, Baso % (Auto) 0.9, Absolute Neuts (auto) 2.5, Absolute Lymphs (auto) 0.45 L, Nucleated RBC % 0, Diff Path Review May foll, Atypical Lymphocytes 1+, Anisocytosis 2+ 09/12/21 05:55: Sodium 141, Potassium 4.0, Chloride 108 H, Carbon Dioxide 28.0, Anion Gap 5, BUN 55 H, Creatinine 1.71 H, Estim Creat Clear Calc 39.44, Est GFR (MDRD) Af Amer 51 L, Est GFR (MDRD) Non-Af 42 L, BUN/Creatinine Ratio 32.2 H, Glucose 89, Calcium 6.3 L* Physical Exam Narrative General: NAD HEENT: Normocephalic, atraumatic. Neck: Supple, no JVD. Lungs: Clear anteriorly and posteriorly; no wheezed, rhonchi or rales Abdomen: Normal bowel sounds, abdomen is distended, firm to palpation, nontender, no guarding or rebound. Extremities: There is at least 2+ lower extremity pitting edema. Edema noted to b/l thighs. TRINITY hose on denton with clear urine in bag Assessment & Plan Assessment/Plan (1) CAREY (acute kidney injury): PLAN: -Etiology of CAREY is unclear at this point. Possible component of cardiorenal syndrome. -Fractional excretion of sodium was less than 1% on 09/06/2021 which can be consistent with cardiorenal CAREY. The patient does not appear to be volume depleted on physical examination. -Urine protein to creatinine ratio is 588 mg/g. Serum albumin is 3.1 g/dL. The patient is not nephrotic. -Since the cause of CAREY is unclear and the patient has nonspecific symptoms such as arthralgia, ordered serologies: DS DNA, TORRES, LABOR RELATIONS ANALYST antibody, scleroderma Ab not reportable, pANCA, cANCA unremarkable, C3 slightly low at 79, C4 normal. -We will hold off on rechecking renal ultrasound since it was just completed less than 1 month ago. There was no hydronephrosis seen on renal ultrasound done on 08/18/2021. -Overall renal function improved from admission. SCr peaked 3.32mg/dL and SCr leveled off 1.5mg/dL for 3 days and today Cr 1.7mg/dL. He has been off of IV fluids since 09/07/21. - volume status improving -Urine output >2 L in 24h without diuretic. Cumulative I&O patient is net negative 2.6L before starting lasix. Weight 98kg on admission and is currently 92.6kg (patient feels 82kg is his target dry weight). Recommend strict I&O and daily weights. Also reviewed with patient recommend ~1.5L fluid intake in 24hrs (patient stated at home intake ~2.4L per day). - 09/09 started on lasix 40mg IV bid (Home diuretic regimen lasix 40mg bid and me tolazone once weekly). Cumulative I&O now is net negative 8L. Stopped twice daily IV Lasix and now on Lasix 60 mg twice daily and Aldactone 25 mg daily. Continue 1.5L FR/day. Discussed this with patient. -There is no urgent need for kidney replacement therapy. -The patient may ultimately need a kidney biopsy for more definitive diagnosis. - bps acceptable have improved with reducing toprol to 50mg bid, SBP ~low 100s - Patient has history of BPH and follows Dr. Baxter. Patient had UroLift, less invasive surgery less risk of bleeding but his symptoms recurred. He has irritative and obstructive symptoms of lower urinary tract including hesitancy, intermittent stop and go, difficult to initiate and maintain the urinary stream, and urine retention. Patient required [place] catheterization. Currently having clear urine. To follow up with Dr. Baxter and continue on tamsulosin and finast eride. (2) Chronic kidney disease, stage 3b: PLAN: -Baseline serum creatinine prior to admission in July 2021 was around 1.6 mg/dL. -follows with Dr. Williamson - patient has hospital follow up 10/01 @2:30. Will have weekly bmp and mag drawn until office appointment (3) Hypocalcemia: PLAN: -Hypocalcemia appears to be chronic. Patient is on Tums 500mg tid. -Phosphorus was slightly high at 5 mg/dL (stable). However, there is no need for phosphorus binder at this point since phosphorus level is <5.5; currently 3.3. -Magnesium is normal. -The patient is asymptomatic from hypocalcemia without myoclonus or hyp erreflexia. -Calcium level is ~6-6.2 mg/dL. -Serum albumin is not very low at 3.2. Ionized calcium 3.4 -We will continue to follow calcium and phosphorus level. -I do not see any prior work-up for hypocalcemia on review of record. Ordered: PTH 31.9, Vitamin D 25 hydroxy 20.8. Ionized Calcium 3.4, Vitamin D 1,25 <5.0. (4) Hyponatremia: PLAN: -Serum sodium was just slightly low at 134 mmol/L on 09/07/21. -Serum sodium has improved to 141. -There is no worrisome symptoms of hyponatremia such as headache, nausea, or confusion. -We will monitor serum sodium for now. (5) Atrial fibrillation and flutter: PLAN: - patient has history of chronic diastolic heart failure and Afib. - cardiology following. Patient was started on Amio gtt and to be transitioned to oral amiodarone. On toprol. On anticoagulant therapy. - echo: EF is 40%. Mildly dilated RV, Mild global right ventricular systolic dysfunction, Mild (1+) mitral valve insufficiency, moderately severe (3+) tricuspid valve insufficiency, RVSP 55 mg suggestive of moderately high pulmonary hypertension, unable to assess diastolic dysfunction. Echo 2020 EF 57%. - per cardiology he may need to have repeat diagnostic cardiac catheterization to redefine his coronary anatomy - Patient underwent ablation by EP service in [facility] in December 2020 but was unsuccessful. He is scheduled for repeat ablation in [facility].
--- NOTE | 2021-09-12 11:01 | CASEMGMT ---
Pt to be sent home with denton catheter at discharge and RN to educate pt on same. This RN CM to room to discuss with pt and pt declines need for [facility] or any other resources. [place] RN CM
--- NOTE | 2021-09-12 11:45 | PN.CARD_ITS ---
Subjective Subjective The patient is awake and alert. He states he continues to feel better overall with his diuresis. Objective Data Vital Signs: Vital Signs Temp Pulse Resp BP Pulse Ox 98.5 F 119 H 16 109/83 H 96 09/12/21 08:15 09/12/21 08:24 09/12/21 08:15 09/12/21 08:15 09/12/21 08:15 Oxygen Delivery Method Room Air Weight: 204 lb 2.369 oz Body Mass Index (BMI) 33.1 Intake & Output: Intake and Output for Last 24 Hours 09/10/21 09/11/21 09/12/21 23:59 23:59 23:59 Intake Total 1720.00 / 1820.00 1210 / 1310 300 / 300 Output Total 3450 / 4750 3000 / 3650 1325 / 1325 Balance -1730.00 / -2930.00 -1790 / -2340 -1025 / -1025 Lab / Micro Data Result Diagrams: 09/12/21 05:55 09/12/21 05:55 Labs: Laboratory Results - last 24 hr 09/10/21 04:54: Diff Path Review Reviewed 09/11/21 05:21: Diff Path Review Reviewed 09/12/21 05:55: WBC 3.3 L, RBC 3.31 L, Hgb 9.0 L, Hct 29.3 L, MCV 88.5, MCH 27.2, MCHC 30.7 L, RDW Std Deviation 67.2 H, RDW Coeff of Rafael 20.9 H, Plt Count 252, MPV 10.8, Immature Gran % (Auto) 1.500 H, Neut % (Auto) 76.5 H, Lymph % (Auto) 13.8 L, [place] % (Auto) 6.4, Eos % (Auto) 0.9, Baso % (Auto) 0.9, Absolute Neuts (auto) 2.5, Absolute Lymphs (auto) 0.45 L, Nucleated RBC % 0, Diff Path Review May foll, Atypical Lymphocytes 1+, Anisocytosis 2+ 09/12/21 05:55: Sodium 141, Potassium 4.0, Chloride 108 H, Carbon Dioxide 28.0, Anion Gap 5, BUN 55 H, Creatinine 1.71 H, Estim Creat Clear Calc 39.44, Est GFR (MDRD) Af Amer 51 L, Est GFR (MDRD) Non-Af 42 L, BUN/Creatinine Ratio 32.2 H, Glucose 89, Calcium 6.3 L* Cardiology Labs/Tests 09/12/21 05:55: WBC 3.3 L, RBC 3.31 L, Hgb 9.0 L, Hct 29.3 L, MCV 88.5, MCH 27.2, MCHC 30.7 L, Plt Count 252, MPV 10.8, Immature Gran % (Auto) 1.500 H, Neut % (Auto) 76.5 H, Lymph % (Auto) 13.8 L, [place] % (Auto) 6.4, Eos % (Auto) 0.9, Baso % (Auto) 0.9, Absolute Neuts (auto) 2.5, Nucleated RBC % 0 09/12/21 05:55: Sodium 141, Potassium 4.0, Chloride 108 H, Carbon Dioxide 28.0, Anion Gap 5, BUN 55 H, Creatinine 1.71 H, Est GFR (MDRD) Af Amer 51 L, Est GFR (MDRD) Non-Af 42 L, BUN/Creatinine Ratio 32.2 H, Glucose 89, Calcium 6.3 L* Rhythm: Sinus rhythm/atrial tachycardia Physical Exam Narrative This is a 71-year-old white male who appears to be resting reasonably comfortably at the moment in no acute distress. Const alert, oriented x3 and no apparent distress Orientation / Consciousness: awake HEENT normocephalic, head/scalp atraumatic and hearing grossly normal bilaterally Eyes PERRL, EOMs intact bilaterally and conjunctivae normal Neck full ROM, supple and no JVD Resp clear to auscultation bilaterally Cardio regular rate, S1 normal heart sound and S2 normal heart sound Rate: tachycardic GI GI Narrative: Distended appearing Extremity General Extremity: edema bilateral lower extremity Details: mild Skin no rashes or lesions noted Neuro oriented x3, moves all extremities, no focal motor deficits and no sensory deficits noted Psych mental status grossly normal Assessment & Plan Assessment/Plan (1) Atrial fibrillation and flutter: PLAN: The patient does have a history of atrial fibrillation status post EPS/RFA. He also appears to have a regular appearing narrow complex tachycardia which, status post review of his cardiac rhythm strips, may be compatible with an underlying tachycardia/atrial flutter. At the present time it is reasonable to continue rate control therapy. He has been placed on oral amiodarone therapy with a tapering dose. He is continuing anticoagulant therapy. Also, based upon his ongoing issues, his EPS/RFA procedure may have to be placed on temporary hold until he undergoes further cardiovascular evaluation/stabilization, etc. (2) CHF (congestive heart failure): PLAN: The patient has a history of chronic diastolic CHF. However now he appears to also have an element, based upon his echocardiographic findings, of diminished systolic function as well. His change in LV wall motion systolic function raises a concern as to whether or not these findings can be related to his atrial dysrhythmia versus being related to the development of CAD. At the present time he will need to continue medical management for his CHF. This could include agents such as nitrates, beta-blockers, diuretics, and af terload reducing agents as tolerated by his renal insufficiency, etc. (3) CAD (coronary artery disease): PLAN: The patient's previous cardiac catheterization as noted above. Based upon the patient's ongoing issues and concerns he may need to have repeat diagnostic cardiac catheterization to redefine his coronary anatomy to assist in further evaluation and care. However it would be reasonable for the patient to be overall clinically improved prior to such procedure and to allow his renal function time to stabilize prior to undergoing such procedure to minimize the risk of IV contrast related nephropathy. (4) Acute on chronic kidney failure: PLAN: The patient's creatinine level has fluctuated up and down recently. His creatinine has improved overall, however, it still remains somewhat elevated. He will need to continue medical management at this time. Nephrology is also following the patient. (5) Hyperlipidemia: PLAN: The patient should continue risk factor evaluation and care as deemed appropriate. (6) Myelofibrosis: PLAN: The patient has a history of myelofibrosis which he states, with its association with his concerns of anemia, etc., has only made taking care of his other medical conditions more challenging. Certainly the anemia can make his other medical conditions more challenging to evaluate and/or care for. Hopefully he will be able to continue medication which is appropriate to boost his RBC counts. Addt'l Comments Overall, from a cardiovascular standpoint, the patient is continuing his current medical therapy. There are no plans for additional cardiovascular diagnostic studies at this time. The patient should have future outpatient cardiovascular follow-up with his primary sustainable design consultant, Dr. Sari, to continue to monitor his cardiovascular status and to assist with future cardiovascular diagnostic studies, etc., as deemed appropriate based upon his noncardiac comorbidities. Thank you for allowing me to participate in the care of your patient. Please don't hesitate to call if any issues arise. This note was generated using a voice recognition system and there may be incorrect words, spelling or punctuation that were not noted when reviewing the office note prior to saving.
[2021-09-12 12:50] LABS: Pathologist Review Reviewed
[2021-09-12 13:23] VITALS: BP 127/87; PULSE 125; RESP 16; TEMP 36.4; O2SAT 97
== END 2021-09-12 13:51 | disposition home or self-care (01) | DRG 291 ==
LOC: ED 06:32 → PCU 07:46
PROVIDERS: Internal Medicine Nephrology; Nurse Practitioner Adult Health; Admitting Provider Family Medicine; Emergency Provider Emergency Medicine; PCP Preventive Medicine Occupational Medicine; Visit Provider Internal Medicine
DX: I13.0 Hypertensive heart and chronic kidney disease with heart failure and stage 1 through stage 4 chronic kidney disease, or unspecified chronic kidney disease (principal); I50.33 Acute on chronic diastolic (congestive) heart failure; D61.818 Other pancytopenia; D75.81 Myelofibrosis; N17.9 Acute kidney failure, unspecified; I48.92 Unspecified atrial flutter; E87.1 Hypo-osmolality and hyponatremia; R18.8 Other ascites; D69.6 Thrombocytopenia, unspecified; E83.51 Hypocalcemia; E83.39 Other disorders of phosphorus metabolism; I48.0 Paroxysmal atrial fibrillation; N18.32 Chronic kidney disease, stage 3b; E78.5 Hyperlipidemia, unspecified; E03.9 Hypothyroidism, unspecified; I44.0 Atrioventricular block, first degree; E87.6 Hypokalemia; I25.10 Atherosclerotic heart disease of native coronary artery without angina pectoris; I07.1 Rheumatic tricuspid insufficiency; E83.52 Hypercalcemia; N40.1 Benign prostatic hyperplasia with lower urinary tract symptoms; N13.9 Obstructive and reflux uropathy, unspecified; R33.9 Retention of urine, unspecified; Z87.891 Personal history of nicotine dependence; Z79.01 Long term (current) use of anticoagulants; R80.9 Proteinuria, unspecified; I49.3 Ventricular premature depolarization
CPT/HCPCS: 36415; 51702; 80048; 80053; 80061; 80076; 81001; 82306; 82330; 82550; 82570; 82652; 83735; 83970; 84100; 84156; 84300; 85025; 86038; 86160; 86225; 86235; 86256; 93005; 93306; 97116; 97162; 97165; 97530; 97802; 99285; J7030; Q9957; A4216; C8929; J0610; J1940

== ENCOUNTER 2021-09-15 09:40 | Outpatient (CLI) | payer MEDICARE, SELFPAY ==
[2021-09-15 11:33] LABS: Anion Gap 6 (5-15); BUN 67 mg/dL (7-18); BUN/Creat Ratio 31.6 RATIO (10-20); Calcium,Total 5.6 mg/dL (8.5-10.1); Chloride 104 mmol/L (98-107); Creatinine, Serum 2.12 mg/dL (0.70-1.30); EST Glomerular Filtration Rate 33 mL/min (>60); Est Glom Filt Rate - Afr Amer 40 mL/min (>60); Glucose 151 mg/dL (74-106); Potassium 3.7 mmol/L (3.5-5.1); Sodium Level 141 mmol/L (136-145)
== END 2021-09-15 23:59 | disposition home or self-care (01) ==
LOC: LAB 09:42
PROVIDERS: Nurse Practitioner Gerontology; PCP Preventive Medicine Occupational Medicine; Referring Provider Internal Medicine Nephrology; Visit Provider Internal Medicine Nephrology
DX: I50.9 Heart failure, unspecified (principal); I48.0 Paroxysmal atrial fibrillation; E86.0 Dehydration; R60.0 Localized edema; E87.5 Hyperkalemia; N04.9 Nephrotic syndrome with unspecified morphologic changes
CPT/HCPCS: 36415; 80048

== ENCOUNTER 2021-10-10 08:52 | Inpatient (IN) | payer MEDICARE, SELFPAY ==
[2021-10-10] VITALS (11 sets, daily range): BP systolic 87–115; BP diastolic 65–78; PULSE 67–119; RESP 15–19; TEMP 36.1–37.2; O2SAT 94–100; BMI 30.9; BMI 30.8
--- NOTE | 2021-10-10 09:20 | EKG12_ITS ---
Test Reason : ABDOMINAL PAIN Blood Pressure : / mmHG Vent. Rate : 062 BPM Atrial Rate : 062 BPM P-R Int : 290 ms QRS Dur : 106 ms QT Int : 494 ms P-R-T Axes : 049 -10 216 degrees QTc Int : 501 ms Sinus rhythm with 1st degree A-V block ST & T wave abnormality, consider inferior ischemia ST & T wave abnormality, consider anterolateral ischemia Prolonged QT Abnormal ECG Confirmed by LEAH CHINCHILLA, RACIEL ([id number]), makeup editor SUJATHA FERNÁNDEZ ([id number]) on 10/14/2021 11:01:32 AM Referred By: JEFF Confirmed By:RACIEL LYNN MD
--- NOTE | 2021-10-10 09:27 | RAD_ITS ---
STUDY: X-RAY CHEST REASON FOR EXAM: Male, 71 years old. Abdominal distention and discomfort. TECHNIQUE: Single AP portable view of the chest. COMPARISON: Comparison is made with prior study dated 09/01/2021. FINDINGS: EKG electrodes are seen. Persistent bilateral pulmonary infiltrates in the right lower lobe as well as in the left upper lobe. These have improved as compared to prior examination. There is no demonstrated pleural abnormality. There is mild cardiac enlargement. Normal mediastinum and [place]. Normal visualized pulmonary arteries. There is atherosclerotic calcification of the aortic arch with tortuosity. There are diffuse degenerative changes of the visualized thoracic spine. Normal visualized ribs, clavicles, and shoulders. There is no demonstrated abnormality of the visualized soft tissue structures of the upper abdomen. RAD/Chest 1 View (Portable) IMPRESSION: Persistent bilateral pulmonary infiltrates although there has been improvement as compared to prior study. Electronically Signed: Alcon Suarez MD at 9:55 EDT ,
[2021-10-10 09:35] LABS: Absolute Lymphocyte Count 0.19 X10^3/uL (0.83-4.51); Basophil# 0.02 X10^3/uL; Basophil% 0.8 % (0-1); Eosinophil# 0.01 X10^3/uL; Eosinophils% 0.4 % (0-5); Hematocrit 31.3 % (40-54); Hemoglobin 9.5 g/dL (13.0-16.5); Lymphocyte # 0.19 X10^3/ul (0.83-4.51); Mean Corp Hgb Conc 30.4 g/dL (32-36); Mean Corpuscular Hgb 28.9 pg (27.0-32.0); Mean Corpuscular Volume 95.1 fL (80-94); Mean Platelet Vol. 11.3 fl (6.2-12.0); Monocyte# 0.15 X10^3/uL; Monocyte% 6.3 % (0-10); NRBC Flagged by Analyzer 0.8 % (0-5); Neutrophil # 1.99 X10^3/uL (2.7-7.7); Neutrophil % 83.7 % (47-70); POSITIVE DIFFERENTIAL YES; POSITIVE MORPHOLOGY YES; Platelet Count 153 K/mm3 (150-450); RBC Distribution Width CV 21.4 % (11.6-14.6); RBC Distribution Width SD 74.3 fl (35.1-43.9); Red Blood Count 3.29 M/mm3 (4.6-6.2); White Blood Count 2.4 K/mm3 (4.4-11.0)
[2021-10-10 09:38] LABS: Differential Indicated SCAN CRITERIA MET
[2021-10-10 09:48] LABS: International Normalized Ratio 1.5; Prothrombin Time (Protime)PT. 17.2 SECONDS (11.7-14.9)
[2021-10-10 09:54] LABS: BNP,B-Type NATRIURETIC PEPTIDE 2023.5 pg/mL (0-100)
[2021-10-10 09:58] LABS: AST(SGOT) 8 U/L (15-37); Alanine Aminotransfer ALT/SGPT 9 U/L (16-61); Albumin, Serum 3.5 g/dL (3.2-5.0); Alkaline Phosphatase 44 U/L (45-117); Anion Gap 7 (5-15); BUN 98 mg/dL (7-18); BUN/Creat Ratio 29.9 RATIO (10-20); Bilirubin, Direct 0.25 mg/dL (0.00-0.30); Calcium,Total 5.9 mg/dL (8.5-10.1); Chloride 104 mmol/L (98-107); Creatinine, Serum 3.28 mg/dL (0.70-1.30); EST Glomerular Filtration Rate 20 mL/min (>60); Est Glom Filt Rate - Afr Amer 24 mL/min (>60); Estimated Creatinine Clearance 20.56 ml/min; Globulin 3.1 g/dL (2.2-4.2); Glucose 103 mg/dL (74-106); Potassium 4.3 mmol/L (3.5-5.1); Protein, Total 6.6 g/dL (6.4-8.2); Sodium Level 139 mmol/L (136-145)
[2021-10-10 10:04] LABS: Anisocytosis 1+; Platelet Estimate ADEQUATE (ADEQ); Poikilocytosis 1+; Polychromasia 1+
--- NOTE | 2021-10-10 10:04 | EX.ED.DYSGE1 ---
HPI <ALLISON Cornejo - Last Filed: 10/10/21 10:41> History of Present Illness Chief Complaint: Abd Pain Narrative Narrative: 71-year-old male with history of congestive heart failure, renal disease presents to the emergency department for worsening kidney function, weight gain. I did speak with the patient's grants manager who referred him to come in,Dr. Daniel. He has been taking Lasix, then he will go into acute kidney injury, then stop the Lasix then the patient will go back into CHF. The grants manager like him admitted to have dialysis secondary to needing multiple medical procedures. Patient arrives today feeling bloated in his abdomen, he has gained 22 pounds of the last week, he has had increase shortness of breath, weakness denies any fevers chills cough. PFSH <ALLISON Cornejo - Last Filed: 10/10/21 10:41> [facility] Medical History (Updated 10/10/21 @ 10:57 by ALLISON Orr) Anemia Anemia Arthritis Atrial fibrillation and flutter Bladder disease Bruising CAD (coronary artery disease) Cardiology follow-up encounter CHF (congestive heart failure) Chronic diastolic (congestive) heart failure Chronic heart failure with preserved ejection fraction (HFpEF) Chronic kidney disease, stage 3b Dietary restriction Essential thrombocytosis Former smoker Gastric reflux Gout History of CHF (congestive heart failure) History of COVID-19 History of echocardiogram History of edema History of stress test Hyperlipidemia Hypocalcemia Hypothyroidism Injury of back Leukopenia Mild dehydration Myelofibrosis Myeloproliferative neoplasm Neutropenic fever Pancytopenia Paroxysmal atrial fibrillation Paroxysmal atrial tachycardia (04/11/21) Restless legs Right inguinal hernia Shortness of breath on exertion Splenomegaly Thrombocytopenia Thyroid disease Urinary retention Wears glasses Home Medications allopurinol 300 mg PO DAILY 02/04/18 [History Last Taken 09/05/21] finasteride 5 mg PO QHS 02/04/18 [History Last Taken 09/05/21] gemfibrozil 600 mg PO DAILY 02/04/18 [History Last Taken 09/05/21] alfuzosin 10 mg PO QHS 04/21/20 [History Last Taken 09/05/21] fedratinib 200 mg PO QHS 04/21/20 [History Last Taken 10/06/21] levothyroxine 112 mcg tablet 300 mcg PO DAILY tab 08/13/20 [History Last Taken 10/10/21] fluticasone propionate 1 spray INTRANASAL BID PRN 08/13/21 [History Last Taken 09/05/21] calcium carbonate 600 mg PO TID #0 tab 08/20/21 [Rx Last Taken 09/05/21] apixaban 2.5 mg tablet 2.5 mg PO BID #180 tab 09/01/21 [Rx Last Taken 10/06/21] polysaccharide iron complex [Ferrex 150] 150 mg PO QODAY 30 Days #30 cap 09/12/21 [Rx Last Taken 09/05/21] spironolactone 25 mg PO DAILY #30 tab 09/12/21 [Rx Last Taken Unknown] metoprolol succinate 100 mg tablet,extended release 24 hr 100 mg PO BID #180 tab 09/22/21 [Rx Last Taken Unknown] Retiocrit 0 mg TRANSDERMAL FR 10/03/21 [History Last Taken Unknown] amiodarone 200 mg PO DAILY 10/03/21 [History Last Taken Unknown] furosemide 60 mg PO DAILY 10/03/21 [History Last Taken Unknown] Allergy/AdvReac Type Severity Reaction Status Date / Time pseudoephedrine AdvReac Severe Itching Verified 10/10/21 08:52 [From [facility]] Family History Mother Heart disease Dementia Diabetes Father COPD (chronic obstructive pulmonary disease) Heart disease Sister Cancer uterine Surgical History (Updated 10/03/21 @ 14:26 by Jossy Ruiz) H/O prostate biopsy H/O right inguinal hernia repair History of bone marrow biopsy History of cardiac catheterization History of colonoscopy (2012) History of radiofrequency ablation procedure for cardiac arrhythmia (01/06/21) History of thyroidectomy History of transurethral resection of prostate (07/2020) Social History household members: spouse Smoking Status: Former smoker alcohol intake: never substance use type: does not use ROS <ALLISON Cornejo - Last Filed: 10/10/21 10:41> ROS ED ROS Narrative Constitutional: Negative for fever, chills, weight loss or gain, weakness Eyes: Negative for vision loss, vision change, double vision ENT: Negative for any hearing changes, ringing in the ears, dizziness, discharge, pain Nose: Negative for any congestion, runny nose, sinus pain, allergies Throat: Negative for any sore throat hoarseness, voice changes, Cardiovascular: Negative for any chest pain, tightness, palpitations, racing heartbeat Respiratory: Negative for any coughs, sputum production, coughing, hemoptysis, shortness of breath. Positive shortness of breath on exertion Gastrointestinal: Negative for any abdominal pain, nausea, vomiting, diarrhea, constipation, blood in stool, blood in vomit. Positive for abdominal bloating : Negative for any urinary frequency, incontinence, dysuria, retention, blood in urine Muscle skeletal: Negative for any muscle joint pain, stiffness, myalgias, arthralgias, neck pain, back pain Neurological: Negative for any headache, head injury, dizziness, syncope, numbness or tingling Skin: Negative for any rashes, lumps, itching, abrasions, lacerations Psychiatric: Negative for any depression, anxiety, stress, suicidal ideation, homicidal ideation Hematologic: Negative for any easy bruising, excessive bruising, easy bleeding Allergies: Negative for any eczema, hives, rash EXAM <ALLISON Cornejo - Last Filed: 10/10/21 10:41> Physical Exam Const Vital Signs: 10/10/21 08:53 10/10/21 09:30 10/10/21 10:43 Temperature 97.6 F L Temperature Source Temporal Pulse Rate 105 H 106 H 106 H Respiratory Rate 17 15 17 Blood Pressure 87/65 L 89/70 L 89/68 L Blood Pressure Mean 72 76 75 Pulse Ox 100 97 97 Oxygen Delivery Method Room Air Room Air Room Air Positive well nourished and well developed General Appearance ED: well developed Eyes PERRL and EOMs intact bilaterally Neck no lymphadenopathy and supple Chest Wall inspection of chest normal Resp Resp Narrative: Patient has diminished lung sounds in the bases, left lower lobe crackles Cardio regular rate GI GI Narrative: Patient's abdomen distended, no palpable patient however patient does have history of splenomegaly, Inspection: abdominal distention Palpation: splenomegaly Back/Spine no CVA tenderness Extremity Extremity Narrative: Patient has slight edema to bilateral lower extremities however most of his edema is carried in his abdomen General Extremety ED: Yes edema General Extremity: edema Neuro oriented x3 and CN's II-XII intact bilaterally Sensorium / Orientation: alert Skin no rashes or lesions noted <Dr. Santosh Bruner, DO - Last Filed: 10/10/21 10:59> Physical Exam Const Vital Signs: 10/10/21 08:53 10/10/21 09:30 10/10/21 10:43 Temperature 97.6 F L Temperature Source Temporal Pulse Rate 105 H 106 H 106 H Respiratory Rate 17 15 17 Blood Pressure 87/65 L 89/70 L 89/68 L Blood Pressure Mean 72 76 75 Pulse Ox 100 97 97 Oxygen Delivery Method Room Air Room Air Room Air MDM <He Holliday NP-C - Last Filed: 10/10/21 10:41> [facility] MDM Narrative Medical decision making narrative: Patient appears to be in no distress, vital signs are stable. Patient presents to the emergency department with weight gain, worsening kidney failure secondary to Lasix. Patient did receive a full CHF work-up, patient's EKG showed a first-degree AV block however was normal. Patient's laboratory studies show a low white blood count, red blood count however this is chronic with a hemoglobin 9.5, patient's BNP was greater than 2000 chest x-ray was consistent with CHF. Patient's creatinine is 3.2, BUN of 98, this creatinine is up one-point from previous. Patient be admitted to the hospital to control his congestive heart failure as well as his kidney function. Per his grants manager, he will be getting a dialysis to assist with this. Patient be admitted to the hospitalist. Lab Data Attestation: I reviewed the patient's lab results. Labs: Laboratory Results - last 24 hr 10/10/21 10/10/21 10/10/21 09:05 09:05 09:05 WBC 2.4 L RBC 3.29 L Hgb 9.5 L Hct 31.3 L MCV 95.1 H MCH 28.9 MCHC 30.4 L RDW Std Deviation 74.3 H RDW Coeff of Rafael 21.4 H Plt Count 153 MPV 11.3 Immature Gran % (Auto) 0.800 Neut % (Auto) 83.7 H Lymph % (Auto) 8.0 L [place] % (Auto) 6.3 Eos % (Auto) 0.4 Baso % (Auto) 0.8 Absolute Neuts (auto) 2.0 Absolute Lymphs (auto) 0.19 L Nucleated RBC % 0.8 Diff Path Review May foll Platelet Estimate ADEQUATE Polychromasia 1+ Poikilocytosis 1+ Anisocytosis 1+ Microcytosis 1+ Tear Drop Cells 1+ Ovalocytes 1+ PT INR Sodium 139 Potassium 4.3 Chloride 104 Carbon Dioxide 28.0 Anion Gap 7 BUN 98 H Creatinine 3.28 H Estim Creat Clear Calc 20.56 Est GFR (MDRD) Af Amer 24 L Est GFR (MDRD) Non-Af 20 L BUN/Creatinine Ratio 29.9 H Glucose 103 Calcium 5.9 L* Total Bilirubin 0.60 Direct Bilirubin 0.25 AST 8 L ALT 9 L Alkaline Phosphatase 44 L B-Natriuretic Peptide 2023.5 H Total Protein 6.6 Albumin 3.5 Globulin 3.1 10/10/21 09:05 WBC RBC Hgb Hct MCV MCH MCHC RDW Std Deviation RDW Coeff of Rafael Plt Count MPV Immature Gran % (Auto) Neut % (Auto) Lymph % (Auto) [place] % (Auto) Eos % (Auto) Baso % (Auto) Absolute Neuts (auto) Absolute Lymphs (auto) Nucleated RBC % Diff Path Review Platelet Estimate Polychromasia Poikilocytosis Anisocytosis Microcytosis Tear Drop Cells Ovalocytes PT 17.2 H INR 1.5 Sodium Potassium Chloride Carbon Dioxide Anion Gap BUN Creatinine Estim Creat Clear Calc Est GFR (MDRD) Af Amer Est GFR (MDRD) Non-Af BUN/Creatinine Ratio Glucose Calcium Total Bilirubin Direct Bilirubin AST ALT Alkaline Phosphatase B-Natriuretic Peptide Total Protein Albumin Globulin Radiography Chest X-Ray - ED: 1 View Diagnostic Testing: Clinical Impression(s) from Imaging Studies Chest X-Ray 10/10/21 09:27 IMPRESSION: Persistent bilateral pulmonary infiltrates although there has been improvement as compared to prior study. Electronically Signed: Alcon Suarez MD at 9:55 EDT , Chest x-ray read by ER physician shows persistent bilateral pulmonary infiltrates which is appear to be CHF in nature EKG Sinus rhythm: Attestation: I personally reviewed and interpreted this EKG as follows: Comments: Sinus rhythm with first-degree AV block, rate of 62 bpm, NE interval 290 ms, QRS duration 106 ms, no acute ST elevation, no acute infarct noted. Prior EKG tracings: available for review Treatment and Re-Evaluation Narrative: Patient admitted. <Dr. Santosh Bruner, DO - Last Filed: 10/10/21 10:59> [facility] Narrative Medical decision making narrative: Patient was seen with me. I did a [id number] examination with the patient. I agree with the history and physical examination. Patient presents with shortness of breath and weight gain over the past several days. Patient states that his breathing is worse with any exertion. Patient states his abdomen has gotten more distended and bloated over the past several days. Patient denies any fevers or chills. Patient denies any chest pain. Patient does admit to some weight gain and lower extremity swelling. Patient states his lower extremity swelling is better when he is off of his feet and keeps them elevated. Vital signs are stable except for a slightly low blood pressure of 89/68. Patient is afebrile. Patient is in no acute distress. Oral mucosa is pink and moist. Neck is supple. Trachea is midline. There is no JVD. Heart was regular rate and rhythm. Lungs are clear but diminished bilaterally. There is adequate respiratory effort. Abdomen is soft. There is ascites noted. There is no tenderness. There is no guarding noted. Extremities are intact. There is 1+ pitting edema of the lower extremities bilaterally. Pedal pulses are equal bilaterally. Cranial nerves II through XII are intact. There are no focal motor or sensory deficits. CBC shows a white blood cell count of 2.4. There is a mild anemia with a hemoglobin of 9.5 and hematocrit 31.3. Comprehensive metabolic profile shows a BUN of 98 and creatinine of 3.28. Calcium was low at 5.9. BNP was elevated at 2023.5. Portable chest x-ray was obtained. There is 1 view. On my interpretation, there is bilateral venous congestion. Bony thorax is normal. Radiologist also interpreted the x-ray and described him as pulmonary infiltrates bilaterally, improved from previous x-ray. Patient was given a dose of Lasix here. Case was discussed with the hospitalist. Patient will be admitted to the hospital. Patient understood and was agreeable with the plan. All questions were answered. Lab Data Attestation: I reviewed the patient's lab results. Labs: Laboratory Results - last 24 hr 10/10/21 10/10/21 10/10/21 09:05 09:05 09:05 WBC 2.4 L RBC 3.29 L Hgb 9.5 L Hct 31.3 L MCV 95.1 H MCH 28.9 MCHC 30.4 L RDW Std Deviation 74.3 H RDW Coeff of Rafael 21.4 H Plt Count 153 MPV 11.3 Immature Gran % (Auto) 0.800 Neut % (Auto) 83.7 H Lymph % (Auto) 8.0 L [place] % (Auto) 6.3 Eos % (Auto) 0.4 Baso % (Auto) 0.8 Absolute Neuts (auto) 2.0 Absolute Lymphs (auto) 0.19 L Nucleated RBC % 0.8 Diff Path Review May foll Platelet Estimate ADEQUATE Polychromasia 1+ Poikilocytosis 1+ Anisocytosis 1+ Microcytosis 1+ Tear Drop Cells 1+ Ovalocytes 1+ PT INR Sodium 139 Potassium 4.3 Chloride 104 Carbon Dioxide 28.0 Anion Gap 7 BUN 98 H Creatinine 3.28 H Estim Creat Clear Calc 20.56 Est GFR (MDRD) Af Amer 24 L Est GFR (MDRD) Non-Af 20 L BUN/Creatinine Ratio 29.9 H Glucose 103 Calcium 5.9 L* Total Bilirubin 0.60 Direct Bilirubin 0.25 AST 8 L ALT 9 L Alkaline Phosphatase 44 L B-Natriuretic Peptide 2023.5 H Total Protein 6.6 Albumin 3.5 Globulin 3.1 10/10/21 09:05 WBC RBC Hgb Hct MCV MCH MCHC RDW Std Deviation RDW Coeff of Rafael Plt Count MPV Immature Gran % (Auto) Neut % (Auto) Lymph % (Auto) [place] % (Auto) Eos % (Auto) Baso % (Auto) Absolute Neuts (auto) Absolute Lymphs (auto) Nucleated RBC % Diff Path Review Platelet Estimate Polychromasia Poikilocytosis Anisocytosis Microcytosis Tear Drop Cells Ovalocytes PT 17.2 H INR 1.5 Sodium Potassium Chloride Carbon Dioxide Anion Gap BUN Creatinine Estim Creat Clear Calc Est GFR (MDRD) Af Amer Est GFR (MDRD) Non-Af BUN/Creatinine Ratio Glucose Calcium Total Bilirubin Direct Bilirubin AST ALT Alkaline Phosphatase B-Natriuretic Peptide Total Protein Albumin Globulin Radiography Chest X-Ray - ED: 1 View, Read by ED Physician, Read by Radiologist and CHF Diagnostic Testing: Clinical Impression(s) from Imaging Studies Chest X-Ray 10/10/21 09:27 IMPRESSION: Persistent bilateral pulmonary infiltrates although there has been improvement as compared to prior study. Electronically Signed: Alcon Suarez MD at 9:55 EDT , Discharge Plan Dx/Rx/DC Orders Clinical Impression: Congestive heart failure (CHF), Acute kidney injury Disposition Disposition: Acute Care Hospital [facility]
[2021-10-10 10:05] LABS: Microcytosis 1+; Ovalocyte 1+; Tear Drop Cell 1+
--- NOTE | 2021-10-10 10:19 | EX.PCM.CON.S ---
Assessment & Plan Assessment/Plan (1) Acute renal failure: (2) Hyperkalemia, diminished renal excretion: (3) Chronic heart failure with preserved ejection fraction (HFpEF): (4) Paroxysmal atrial fibrillation: PLAN: Due to hypotension will plan to place temporary dialysis catheter currently and convert to tunnelled early next week. Discussed the procedure with the patient and his including risks to bleeding, infection, plans for more permanent catheter. They have no further questions this time. We will plan to hold Eliquis until after the tunneled dialysis catheters placed okay for prophylactic anticoagulation with Lovenox or heparin. d/w Dr. Sibley. Patricia Vincent M.D. Pager: [phone] [facility] [address] [place] [address], [facility], [address] [place] [address] Office: [phone] HPI Consult Data Date of Consult: 10/10/21 HPI Narrative HPI Narrative: ALTON BROWN, is a 71 M who presents to the ER due to elevated creatinine. Did receive a call from Marianela with nephrology with Dr. Williamson for dialysis catheter. [facility] Medical History (Updated 10/10/21 @ 10:57 by Marianela Shi, LUZ MARINA-Serge) Anemia Anemia Arthritis Atrial fibrillation and flutter Bladder disease Bruising CAD (coronary artery disease) Cardiology follow-up encounter CHF (congestive heart failure) Chronic diastolic (congestive) heart failure Chronic heart failure with preserved ejection fraction (HFpEF) Chronic kidney disease, stage 3b Dietary restriction Essential thrombocytosis Former smoker Gastric reflux Gout History of CHF (congestive heart failure) History of COVID-19 History of echocardiogram History of edema History of stress test Hyperlipidemia Hypocalcemia Hypothyroidism Injury of back Leukopenia Mild dehydration Myelofibrosis Myeloproliferative neoplasm Neutropenic fever Pancytopenia Paroxysmal atrial fibrillation Paroxysmal atrial tachycardia (04/11/21) Restless legs Right inguinal hernia Shortness of breath on exertion Splenomegaly Thrombocytopenia Thyroid disease Urinary retention Wears glasses Home Medications allopurinol 300 mg PO DAILY 02/04/18 [History Last Taken 09/05/21] finasteride 5 mg PO QHS 02/04/18 [History Last Taken 09/05/21] gemfibrozil 600 mg PO DAILY 02/04/18 [History Last Taken 09/05/21] alfuzosin 10 mg PO QHS 10/04/20 [History Last Taken 09/05/21] fedratinib 200 mg PO QHS 04/21/20 [History Last Taken 10/06/21] levothyroxine 112 mcg tablet 300 mcg PO DAILY tab 08/13/20 [History Last Taken 10/10/21] fluticasone propionate 1 spray INTRANASAL BID PRN 08/13/21 [History Last Taken 09/05/21] calcium carbonate 600 mg PO TID #0 tab 08/20/21 [Rx Last Taken 09/05/21] apixaban 2.5 mg tablet 2.5 mg PO BID #180 tab 09/01/21 [Rx Last Taken 10/06/21] polysaccharide iron complex [Ferrex 150] 150 mg PO QODAY 30 Days #30 cap 09/12/21 [Rx Last Taken 09/05/21] spironolactone 25 mg PO DAILY #30 tab 09/12/21 [Rx Last Taken Unknown] metoprolol succinate 100 mg tablet,extended release 24 hr 100 mg PO BID #180 tab 09/22/21 [Rx Last Taken Unknown] Retiocrit 0 mg TRANSDERMAL FR 10/03/21 [History Last Taken Unknown] amiodarone 200 mg PO DAILY 10/03/21 [History Last Taken Unknown] furosemide 60 mg PO DAILY 10/03/21 [History Last Taken Unknown] Allergy/AdvReac Type Severity Reaction Status Date / Time pseudoephedrine AdvReac Severe Itching Verified 10/10/21 08:52 [From [facility]] Family History Mother Heart disease Dementia Diabetes Father COPD (chronic obstructive pulmonary disease) Heart disease Sister Cancer uterine Surgical History (Updated 10/03/21 @ 14:26 by Jossy Ruiz) H/O prostate biopsy H/O right inguinal hernia repair History of bone marrow biopsy History of cardiac catheterization History of colonoscopy (2012) History of radiofrequency ablation procedure for cardiac arrhythmia (01/06/21) History of thyroidectomy History of transurethral resection of prostate (07/2020) Social History household members: spouse Smoking Status: Former smoker alcohol intake: never substance use type: does not use Physical Exam Const alert, oriented x3 and no apparent distress HEENT normocephalic and head/scalp atraumatic Neck General: trachea midline Chest inspection of chest normal Resp normal respiratory effort Cardio Rate: tachycardic GI soft to palpation and non-tender Inspection: abdominal distention Palpation: Negative for guarding Extremity no clubbing, cyanosis or edema Neuro CN's II-XII intact bilaterally Psych mental status grossly normal Lab / Micro Data Result Diagrams: 10/10/21 09:05 10/10/21 09:05 Labs: Laboratory Results - last 24 hr 10/10/21 09:05: WBC 2.4 L, RBC 3.29 L, Hgb 9.5 L, Hct 31.3 L, MCV 95.1 H, MCH 28.9, MCHC 30.4 L, RDW Std Deviation 74.3 H, RDW Coeff of Rafael 21.4 H, Plt Count 153, MPV 11.3, Immature Gran % (Auto) 0.800, Neut % (Auto) 83.7 H, Lymph % (Auto) 8.0 L, [place] % (Auto) 6.3, Eos % (Auto) 0.4, Baso % (Auto) 0.8, Absolute Neuts (auto) 2.0, Absolute Lymphs (auto) 0.19 L, Nucleated RBC % 0.8, Diff Path Review November, Platelet Estimate ADEQUATE, Polychromasia 1+, Poikilocytosis 1+, Anisocytosis 1+, Microcytosis 1+, Tear Drop Cells 1+, Ovalocytes 1+ 10/10/21 09:05: Sodium 139, Potassium 4.3, Chloride 104, Carbon Dioxide 28.0, Anion Gap 7, BUN 98 H, Creatinine 3.28 H, Estim Creat Clear Calc 20.56, Est GFR (MDRD) Af Amer 24 L, Est GFR (MDRD) Non-Af 20 L, BUN/Creatinine Ratio 29.9 H, Glucose 103, Calcium 5.9 L*, Total Bilirubin 0.60, Direct Bilirubin 0.25, AST 8 L, ALT 9 L, Alkaline Phosphatase 44 L, Total Protein 6.6, Albumin 3.5, Globulin 3.1 10/10/21 09:05: B-Natriuretic Peptide 2023.5 H 10/10/21 09:05: PT 17.2 H, INR 1.5 Radiology Impression Chest X-Ray 10/10/21 09:27 IMPRESSION: Persistent bilateral pulmonary infiltrates although there has been improvement as compared to prior study. Electronically Signed: Alcon Suarez MD at 9:55 EDT , Charges/Coding Visit Charges Inpatient E&M: 90580 Init Hosp L3
--- NOTE | 2021-10-10 10:27 | HP.PCM.HOS_ITS ---
HPI - General General Date of Admission: 10/10/21 HPI Narrative ALTON BROWN, is a 71 M with a PMH as outlined who presents via the ED on 10/10/2021 with a complaint of weight gain and wrsening renal function. He was referred by his aerospace quality engineer to come in to the ED. He had been taking diuretics, but this would tip him into renal failure, so he would stop the lasix, and then go into heart failure. He has gained 22 pounds in the last week, with associated shortness of breath and exertion. He denied any chest pain, palpitations, dizziness, nausea and vomiting as well as diarrhea. Review of systems is otherwise negative. He was supposed to have a urologic procedure this week but that was deferred due to his kidney function and respiratory status. He is also due to have ablation next week. Vitals in the ED were BP of 89.70, GA of 106, resp rate of 15 and he was saturating at 97% on room air. CBC showed hb of 9.5, with wbc of 2.4 and platelets of 153. INR is 1.5 and chemistry showed sodium of 139 with potassium of 4.3 and Cr of 3.28. Calcium is 5.9. CXR showed persistent bilateral pulmonary infiltrates which had improved from previous study. He is being admitted to be managed for worsening creatinine due to worsening [facility] Medical History Anemia Anemia Arthritis Atrial fibrillation and flutter Bladder disease Bruising CAD (coronary artery disease) Cardiology follow-up encounter CHF (congestive heart failure) Chronic diastolic (congestive) heart failure Chronic heart failure with preserved ejection fraction (HFpEF) Chronic kidney disease, stage 3b Dietary restriction Essential thrombocytosis Former smoker Gastric reflux Gout History of CHF (congestive heart failure) History of COVID-19 History of echocardiogram History of edema History of stress test Hyperlipidemia Hypocalcemia Hypothyroidism Injury of back Leukopenia Mild dehydration Myelofibrosis Myeloproliferative neoplasm Neutropenic fever Pancytopenia Paroxysmal atrial fibrillation Paroxysmal atrial tachycardia (04/11/21) Restless legs Right inguinal hernia Shortness of breath on exertion Splenomegaly Thrombocytopenia Thyroid disease Urinary retention Wears glasses Home Medications allopurinol 300 mg PO DAILY 02/04/18 [History Last Taken 10/09/21] finasteride 5 mg PO QHS 02/04/18 [History Last Taken 10/09/21] gemfibrozil 600 mg PO DAILY 02/04/18 [History Last Taken 10/09/21] alfuzosin 10 mg PO QHS 04/21/20 [History Last Taken 10/09/21] fedratinib 200 mg PO QHS 04/21/20 [History Last Taken 10/06/21] levothyroxine 112 mcg tablet 300 mcg PO DAILY tab 08/13/20 [History Last Taken 10/10/21] fluticasone propionate 1 spray INTRANASAL BID PRN 08/13/21 [History Last Taken 10/09/21] Retiocrit 0 mg TRANSDERMAL FR 10/03/21 [History Last Taken Unknown] amiodarone 200 mg PO DAILY 10/03/21 [History Last Taken 10/09/21] furosemide 80 mg PO DAILY 10/03/21 [History Last Taken 10/09/21] apixaban 2.5 mg PO BID 10/10/21 [History Last Taken 10/06/21] calcium carbonate 600 mg PO TID 10/10/21 [History Last Taken 10/09/21] metoprolol succinate 100 mg PO BID 10/10/21 [History Last Taken 10/09/21] polysaccharide iron complex [Ferrex 150] 150 mg PO QODAY 10/10/21 [History Last Taken 10/08/21] Allergy/AdvReac Type Severity Reaction Status Date / Time pseudoephedrine AdvReac Severe Itching Verified 10/10/21 08:52 [From [facility]] Family History Mother Heart disease Dementia Diabetes Father COPD (chronic obstructive pulmonary disease) Heart disease Sister Cancer uterine Surgical History H/O prostate biopsy H/O right inguinal hernia repair History of bone marrow biopsy History of cardiac catheterization History of colonoscopy (2012) History of radiofrequency ablation procedure for cardiac arrhythmia (01/06/21) History of thyroidectomy History of transurethral resection of prostate (07/2020) Social History household members: spouse Smoking Status: Former smoker alcohol intake: never substance use type: does not use ROS Constitutional Constitutional: Denies anorexia, change in weight, chills, fatigue, fever(s), malaise or weakness Eyes Eyes: Denies change in vision ENT HEENT: Denies abnormal hearing, headache(s) or nasal congestion Cardiovascular Cardiovascular: Reports dyspnea on exertion and orthopnea; Denies chest pain, lightheadedness, palpitations, paroxysmal nocturnal dyspnea, rapid heart rate or syncope Respiratory/Chest Respiratory/Chest: Reports dyspnea, productive cough and shortness of breath with exertion; Denies cough, excessive phlegm production, hemoptysis, shortness of breath at rest or wheezing Gastrointestinal Gastrointestinal: Reports other Details: abdominal distension ; Denies abdominal pain, coffee ground emesis, constipation, diarrhea, nausea or vomiting Genitourinary Genitourinary: Denies burning urination, dysuria, nocturia, urinary frequency, urinary incontinence or urinary urgency Musculoskeletal Musculoskeletal: Denies back pain Neurologic Neurologic: Denies confusion, dizziness, focal weakness, seizures or syncope Psychiatric Psychiatric: Denies anxiety Hematologic/Lymphatic Hematologic/Lymphatic: Denies anemia Vital Signs Vital Signs Vital Signs: 10/10/21 08:53 10/10/21 09:30 Temperature 97.6 F L Temperature Source Temporal Pulse Rate 105 H 106 H Respiratory Rate 17 15 Blood Pressure 87/65 L 89/70 L Blood Pressure Mean 72 76 Pulse Ox 100 97 Oxygen Delivery Method Room Air Room Air Weight Weight: 203 lb Body Mass Index (BMI) 30.9 Physical Exam Const alert, oriented x3 and no apparent distress General Appearance: cooperative HEENT normocephalic, head/scalp atraumatic, hearing grossly normal bilaterally and moist oral mucous membranes Eyes PERRL, EOMs intact bilaterally and conjunctivae normal Neck no lymphadenopathy and supple Resp normal respiratory effort, no retractions, no use of accessory muscles and clear to auscultation bilaterally Cardio regular rate, regular rhythm, S1 normal heart sound, S2 normal heart sound and no murmurs GI GI Narrative: abdomen markedly distended, positive fluid thrill, Non tender, no organomegaly Extremity normal to inspection, full ROM and no clubbing, cyanosis or edema Peripheral Pulses: Yes pulses 2+ throughout Skin no rashes or lesions noted Neuro oriented x3, CN's II-XII intact bilaterally and moves all extremities Sensorium / Orientation: awake and alert Psych affect normal Results Lab / Micro Data Result Diagrams: 10/10/21 09:05 10/10/21 09:05 Labs: Laboratory Results - last 24 hr 10/10/21 09:05: WBC 2.4 L, RBC 3.29 L, Hgb 9.5 L, Hct 31.3 L, MCV 95.1 H, MCH 28.9, MCHC 30.4 L, RDW Std Deviation 74.3 H, RDW Coeff of Rafael 21.4 H, Plt Count 153, MPV 11.3, Immature Gran % (Auto) 0.800, Neut % (Auto) 83.7 H, Lymph % (A uto) 8.0 L, [place] % (Auto) 6.3, Eos % (Auto) 0.4, Baso % (Auto) 0.8, Absolute Neuts (auto) 2.0, Absolute Lymphs (auto) 0.19 L, Nucleated RBC % 0.8, Diff Path Review November, Platelet Estimate ADEQUATE, Polychromasia 1+, Poikilocytosis 1+, Anisocytosis 1+, Microcytosis 1+, Tear Drop Cells 1+, Ovalocytes 1+ 10/10/21 09:05: Sodium 139, Potassium 4.3, Chloride 104, Carbon Dioxide 28.0, Anion Gap 7, BUN 98 H, Creatinine 3.28 H, Estim Creat Clear Calc 20.56, Est GFR (MDRD) Af Amer 24 L, Est GFR (MDRD) Non-Af 20 L, BUN/Creatinine Ratio 29.9 H, Glucose 103, Calcium 5.9 L*, Total Bilirubin 0.60, Direct Bilirubin 0.25, AST 8 L, ALT 9 L, Alkaline Phosphatase 44 L, Total Protein 6.6, Albumin 3.5, Globulin 3.1 10/10/21 09:05: B-Natriuretic Peptide 2023.5 H 10/10/21 09:05: PT 17.2 H, INR 1.5 Radiology Impression Chest X-Ray 10/10/21 09:27 IMPRESSION: Persistent bilateral pulmonary infiltrates although there has been improvement as compared to prior study. Electronically Signed: Alcon Suarez MD at 9:55 EDT , Assessment & Plan Assessment/Plan (1) Acute renal failure: (2) Renal anasarca: PLAN: #Ascites and fluid overload due to worsening CKD * admit to PCU * Patient is unable to tolerate Lasix as her kidney function worsens when she takes it but has not stopped Lasix his fluid overload also worsens. * Creatinine is 3.28. Patient has marked anasarca. * Had temporary dialysis catheter inserted for initiation of dialysis today. * Nephrology on board. General surgery was on board for insertion of temporary dialysis catheter. * He was initially a bit hypotensive so could not have a tunneled dialysis catheter done. This is to be done early next week. * #Acute on chronic exacerbation of heart failure * BNP is 2022 though he also has elevated creatinine so this may not be very accurate * Unable to be diuresed as this worsens his kidney function. For initiation of dialysis to help with fluid removal. * #Hypocalcemia: Calcium is 5.9. Will replace. Nephrology on board. This is chronic #A. fib: * Currently rate controlled. On amiodarone. Eliquis held. * Will put on Lovenox 30 mg daily for now. To resume Eliquis once he is at the tunneled dialysis catheter inserted * Had ablation done a Gabriele only 2020 which was unsuccessful and is to have repeat ablation at this clinic. * #History of chronic myelofibrosis: Follows with oncology at [facility]. On darbepoetin, iron supplement and fedratinib. #BPH: On finasteride #Hypothyroidism: On Synthroid #Hypertension: On metoprolol DVT prophylaxis: Lovenox 30 mg daily CODE STATUS: Full code * Patient counseled extensively about different types of CODE STATUS including full code, DNR CCA and DNR CCA. Patient elects to be full code. Total [id number] time 17 minutes. Charges/Coding Visit Charges Inpatient E&M: 17420 Init Hosp L3 Procedures Hospitalists Procedures: 47932 Advncd Care Plan 30 Min
--- NOTE | 2021-10-10 10:51 | CON.PCM.RE_ITS ---
Assessment & Plan Assessment/Plan (1) Acute kidney injury: (2) Chronic heart failure with preserved ejection fraction (HFpEF): (3) Chronic kidney disease, stage 3b: (4) Myelofibrosis: PLAN: Patient presented to the emergency room this morning with complaints of worsening edema, shortness of breath and weight gain of at least 20 pounds. Patient was seen in the ER. Patient has a known history of chronic kidney di sease stage III possibly from cardiorenal syndrome physiology (renal serologies were unremarkable in August 2021) with baseline creatinine ranging around 1.5 to 1.8 mg/dL. Patient is hypervolemic, failed outpatient diuretic therapy. Chest x-ray today showed persistent bilateral pulmonary infiltrates, BNP is elevated at 2022. It was discussed with patient and his who is at bedside that recommend LOADER TECHNICIAN at this time to help assist with hypervolemia and volume control. Risks and benefits of LOADER TECHNICIAN explained and both patient and are in agreement. We will consult surgery for dialysis catheter placement, ideally would prefer tunneled dialysis catheter however patient is hypotensive so t herefore planning for temporary dialysis catheter today. Hopefully will be able to have tunneled HD catheter placed early next week. We will plan for dialysis today over 2.5 hours with 1 L UF as pt/bp tolerates, plan for dialysis tomorrow over 3 hours with UF as patient/blood pressure tolerates. If blood pressures remain low, will start midodrine. Hepatitis B surface antigen ordered. Consult discharge planning team to arrange for dialysis at [facility] [place], diagnosis CAREY superimposed on CKD. Patient has history of myelofibrosis, chronic anemia and receives CITLALI outpatient. We will give CITLALI with HD. Patient has a history of chronic hypocalcemia, work-up in the past was unremarkable. Patient is to be on Tums and calcium supplements. Patient has a history of A. fib/flutter and was planned for ablation next week. Further orders forthcoming as hospitalization evolves, thank you for letting us participate in the care of Mr. Kenney. HPI Consult Data Date of Consult: 10/10/21 HPI Narrative HPI Narrative: ALTON KENNEY, is a 71 M with past medical history significant for myelofibrosis, splenomegaly, chronic anemia, atrial fibrillation/flutter, history of chronic diastolic heart failure, history of CKD stage III who pr esented to the emergency room this morning with complaints of shortness of breath, worsening lower extremity edema, and at least a 20 pound weight gain. We are consulted for CAREY on CKD. Patient has a known history of CKD stage III with baseline creatinine ranging around 1.5-1.8 mg/dL. Patient was admitted to the hospital end of August 2021 for inability to urinate, [place] catheter placed, we were following the patient for CAREY on CKD. Creatinine had peaked around 3.3 mg/dL and diuretics were stopped, patient improved with IV fluids and by time of discharge creatinine leveled off to around 1.7 mg/dL. Patient volume status also improved, patient had good urine output (had denton). Patient's weight was around 98 kg on admission and by time of discharge weight was around 92.5 kg. Patient was discharged home on furosemide 60mg bid and Aldactone 25mg daily. Patient was then seen in the office about 2 weeks ago, creatinine was up to 3.3. He had been taking Lasix 60 mg twice daily and Aldactone 25 mg daily. Because of rising creatinine his diuretics were reduced, Lasix 60 mg daily and Aldactone 25 mg daily. Patient was also encouraged to follow fluid restriction along with daily weights. Patient has been contacting our office frequently with his weight report and since furosemide was reduced patient has been gaining weight daily. He denies any nausea, vomiting, denies any diarrhea, denies NSAIDs. No new medications. [facility] Medical History (Updated 10/10/21 @ 10:57 by Marianela Shi NP-C) Anemia Anemia Arthritis Atrial fibrillation and flutter Bladder disease Bruising CAD (coronary artery disease) Cardiology follow-up encounter CHF (congestive heart failure) Chronic diastolic (congestive) heart failure Chronic heart failure with preserved ejection fraction (HFpEF) Chronic kidney disease, stage 3b Dietary restriction Essential thrombocytosis Former smoker Gastric reflux Gout History of CHF (congestive heart failure) History of COVID-19 History of echocardiogram History of edema History of stress test Hyperlipidemia Hypocalcemia Hypothyroidism Injury of back Leukopenia Mild dehydration Myelofibrosis Myeloproliferative neoplasm Neutropenic fever Pancytopenia Paroxysmal atrial fibrillation Paroxysmal atrial tachycardia (04/11/21) Restless legs Right inguinal hernia Shortness of breath on exertion Splenomegaly Thrombocytopenia Thyroid disease Urinary retention Wears glasses Home Medications allopurinol 300 mg PO DAILY 02/04/18 [History Last Taken 09/05/21] finasteride 5 mg PO QHS 02/04/18 [History Last Taken 09/05/21] gemfibrozil 600 mg PO DAILY 02/04/18 [History Last Taken 09/05/21] alfuzosin 10 mg PO QHS 04/21/20 [History Last Taken 09/05/21] fedratinib 200 mg PO QHS 04/21/20 [History Last Taken 10/06/21] levothyroxine 112 mcg tablet 300 mcg PO DAILY tab 08/13/20 [History Last Taken 10/10/21] fluticasone propionate 1 spray INTRANASAL BID PRN 08/13/21 [History Last Taken 09/05/21] calcium carbonate 600 mg PO TID #0 tab 08/20/21 [Rx Last Taken 09/05/21] apixaban 2.5 mg tablet 2.5 mg PO BID #180 tab 09/01/21 [Rx Last Taken 10/06/21] polysaccharide iron complex [Ferrex 150] 150 mg PO QODAY 30 Days #30 cap 09/12/21 [Rx Last Taken 09/05/21] spironolactone 25 mg PO DAILY #30 tab 09/12/21 [Rx Last Taken Unknown] metoprolol succinate 100 mg tablet,extended release 24 hr 100 mg PO BID #180 tab 09/22/21 [Rx Last Taken Unknown] Retiocrit 0 mg TRANSDERMAL FR 10/03/21 [History Last Taken Unknown] amiodarone 200 mg PO DAILY 10/03/21 [History Last Taken Unknown] furosemide 60 mg PO DAILY 10/03/21 [History Last Taken Unknown] Allergy/AdvReac Type Severity Reaction Status Date / Time pseudoephedrine AdvReac Severe Itching Verified 10/10/21 08:52 [From [facility]] Family History Mother Heart disease Dementia Diabetes Father COPD (chronic obstructive pulmonary disease) Heart disease Sister Cancer uterine Surgical History (Updated 10/03/21 @ 14:26 by Jossy Ruiz) H/O prostate biopsy H/O right inguinal hernia repair History of bone marrow biopsy History of cardiac catheterization History of colonoscopy (2012) History of radiofrequency ablation procedure for cardiac arrhythmia (01/06/21) History of thyroidectomy History of transurethral resection of prostate (07/2020) Social History household members: spouse Smoking Status: Former smoker alcohol intake: never substance use type: does not use ROS ROS Narrative As in HPI and past medical history Physical Exam Narrative Const: Alert oriented x3 Cardio: S1, S2, rhythm irregular, rate controlled Respiratory: Clear anteriorly, diminished breath sounds posterior bases Abdomen: Soft, rounded and distended Extremities: +2 pitting edema Lab / Micro Data Result Diagrams: 10/10/21 09:05 10/10/21 09:05 Labs: Laboratory Results - last 24 hr 10/10/21 09:05: WBC 2.4 L, RBC 3.29 L, Hgb 9.5 L, Hct 31.3 L, MCV 95.1 H, MCH 28.9, MCHC 30.4 L, RDW Std Deviation 74.3 H, RDW Coeff of Rafael 21.4 H, Plt Count 153, MPV 11.3, Immature Gran % (Auto) 0.800, Neut % (Auto) 83.7 H, Lymph % (Auto) 8.0 L, [place] % (Auto) 6.3, Eos % (Auto) 0.4, Baso % (Auto) 0.8, Absolute Neuts (auto) 2.0, Absolute Lymphs (auto) 0.19 L, Nucleated RBC % 0.8, Diff Path Review November, Platelet Estimate ADEQUATE, Polychromasia 1+, Poikilocytosis 1+, Anisocytosis 1+, Microcytosis 1+, Tear Drop Cells 1+, Ovalocytes 1+ 10/10/21 09:05: Sodium 139, Potassium 4.3, Chloride 104, Carbon Dioxide 28.0, Anion Gap 7, BUN 98 H, Creatinine 3.28 H, Estim Creat Clear Calc 20.56, Est GFR (MDRD) Af Amer 24 L, Est GFR (MDRD) Non-Af 20 L, BUN/Creatinine Ratio 29.9 H, Glucose 103, Calcium 5.9 L*, Total Bilirubin 0.60, Direct Bilirubin 0.25, AST 8 L, ALT 9 L, Alkaline Phosphatase 44 L, Total Protein 6.6, Albumin 3.5, Globulin 3.1 10/10/21 09:05: B-Natriuretic Peptide 2023.5 H 10/10/21 09:05: PT 17.2 H, INR 1.5 Radiology Impression Chest X-Ray 10/10/21 09:27 IMPRESSION: Persistent bilateral pulmonary infiltrates although there has been improvement as compared to prior study. Electronically Signed: Alcon Suarez MD at 9:55 EDT ,
--- NOTE | 2021-10-10 11:40 | RAD_ITS ---
STUDY: X-RAY CHEST REASON FOR EXAM: Male, 71 years old. Line -- in ER 9 TECHNIQUE: Single AP portable view of the chest. COMPARISON: Comparison is made with prior examination 10/10/2021 done earlier today. FINDINGS: The right-sided dialysis catheter has been placed with the tip at the junction of the superior vena cava. EKG electrodes are seen. Mild residual pulmonary infiltrates. There has been improvement since prior study. There is no demonstrated pleural abnormality. Normal size heart. Normal mediastinum and [place]. Normal visualized pulmonary arteries. There is atherosclerotic calcification of the aortic arch with tortuosity. Normal visualized thoracic spine. Normal visualized ribs, clavicles, and shoulders. Surgical clips are seen in the lower cervical region. There is no demonstrated abnormality of the visualized soft tissue structures of the upper abdomen. RAD/CXR for Line Placement IMPRESSION: Status post right dialysis catheter insertion with the tip at the junction of the superior vena cava and right atrium. Electronically Signed: Alcon Suarez MD at 12:11 EDT ,
--- NOTE | 2021-10-10 11:40 | CASEMGMT ---
Per Marianela nephro TOOL DRESSER, pt needs set up with OP HD at [facility] for CAREY. This RN CM to discuss with pt and referral to be placed in portal/faxed once clinicals obtained. CM to follow. SStsheila FRANCE CM
--- NOTE | 2021-10-10 11:51 | PCM.OPRPT ---
Report of Operation Date of Procedure: 10/10/21 Pre-Operative Diagnosis: acute kidney injury Post-Operative Diagnosis: same Surgery/Procedure Performed:: Insertion of temporary right internal jugular dialysis catheter Surgeon: kathy Type of Anesthesia: Local Estimated Blood Loss (mL): minimal Description of Procedure: A time-out was completed to verify correct patient, indication, medication allergies, procedure, coagulation studies, informed consent signed, and equipment needed. The patient was placed in the supine position for a central line placement to the right IJ vein. The patients right neck was prepped using chlorhexidine and a full body sterile drape was applied. 1% lidocaine was used to anesthetize the surrounding skin. A TradierurMoviepilot Elite 12 Urdu x20 cm (ref [id number]) Temporary hemodialysis catheter introduced into the internal jugular vein using the modified Seldinger technique with the assistance of ultrasound. The site was dilated up twice in a stepwise fashion. The catheter was threaded smoothly over the guidewire, the guidewire was removed easily, nonpulsatile blood returned. All ports were aspirated of air and flushed with sterile saline Then flushed with 1:10,000 heparin 1.3 mL to each port. The catheter was sutured in place and covered with dressing in the kit. Patient tolerated procedure well. Chest x-ray was ordered. Complications none
[2021-10-10] MEDS: Heparin 10,000 UNITS/10 ML Vial IV (12:10)
[2021-10-10 12:24] LABS: Pathologist Review Reviewed
--- NOTE | 2021-10-10 14:50 | CASEMGMT ---
RN GRIS Readmission Note: Prior admission: Admitted 09/10/21 for CAREY and discharged home 09/12/21 w/ F/C. Pt declined need for HHC. Current admission: Admitted 10/10/21 w/ worsening CKD w/need for HD, and heart failure. RN GRIS met w/pt. Pt awake/alert. Introduced self and role. Pt states he was able to get his new rx's after last discharge and has been taking his medications as instructed. He has went to all f/u appts since last admission, including PCP, Dr Williamson, and Dr Baxter. Pt is scheduled for an ablation @ [facility] next Wed and has an appt scheduled w/Dr Guo next Wednesday. He denies need for HHC @ d/c and states MMO nurse comes for home visit every 6 wks and does not feel he needs further assistance. OP HD is being set up for pt this admission. Pt denies further home-going needs or concerns at this time. Pt instructed to ask for CM if any further discharge needs or concerns arise. Arsenio COLE RN, CM
--- NOTE | 2021-10-10 16:07 | CHAPLAIN ---
Type of Pastoral Visit _x__ Initial Visit ___ Follow-up Visit ___ On-call Visit ___ General Patient Visit ___ Spiritual Assessment ___ Family Conference ___ Bereavement ___ Rapid Response ___ Code Blue ___ Other (describe below) Pastoral Care Referral From _x__ Patient ___ Family ___ Nurse ___ Physician ___ Loan Processor ___ Parts Counter Sales Person ___ Other (describe below) Sacrament/Intervention _x__ Active listening ___ Anointing ___ Hinduism ___ Bereavement ___ Communion _x__ Joy exploration ___ _x__ Life review x Prayer ___ Reconciliation ___ Sacrament of Sick _x__ Supportive presence ___ Wedding ___ Other (describe below) Pastoral Comments patient has been seen before in previous admission; pt welcomes and acknowledges appreciation for spiritual care support; pt is talkative and expresses his recent encounters with family, his hopes, his readiness for life or as God munoz, and asks questions about churches/joy of 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
--- NOTE | 2021-10-10 19:14 | DIALYSIS ---
Pt tolerated 2.5hr HD tx well. Net UF -1200ml. See flow record for tx data. Hepatitis labs pending.
[2021-10-10] MEDS: APIXABAN 2.5 MG TABLET PO (21:16)
[2021-10-10] MEDS: Tamsulosin HCl 0.4 MG Capsule PO (21:17)
[2021-10-10] MEDS: Metoprolol(XL)Succ 100 MG Tablet PO (21:17)
[2021-10-10] MEDS: Finasteride 5 MG Tablet PO (21:17)
[2021-10-11] VITALS (10 sets, daily range): BP systolic 93–104; BP diastolic 64–81; PULSE 109–123; RESP 16–18; TEMP 36.4–36.9; O2SAT 94–98
[2021-10-11] MEDS: Levothyroxine 150 MCG Tablet 300 MCG PO (06:34)
[2021-10-11 07:14] LABS: Absolute Lymphocyte Count 0.23 X10^3/uL (0.83-4.51); Absolute Neutrophil Count 2.3 X10^3/uL (2.0-7.7); Basophil# 0.02 X10^3/uL; Basophil% 0.7 % (0-1); Eosinophil# 0.01 X10^3/uL; Eosinophils% 0.4 % (0-5); Hematocrit 30.2 % (40-54); Hemoglobin 9.6 g/dL (13.0-16.5); Lymphocyte # 0.23 X10^3/ul (0.83-4.51); Lymphocyte % 8.4 % (19-41); Mean Corp Hgb Conc 31.8 g/dL (32-36); Mean Corpuscular Hgb 29.1 pg (27.0-32.0); Mean Corpuscular Volume 91.5 fL (80-94); Mean Platelet Vol. 11.6 fl (6.2-12.0); Monocyte% 7.3 % (0-10); NRBC Flagged by Analyzer 1.1 % (0-5); Neutrophil # 2.25 X10^3/uL (2.7-7.7); Neutrophil % 82.5 % (47-70); POSITIVE DIFFERENTIAL YES; POSITIVE MORPHOLOGY YES; Platelet Count 151 K/mm3 (150-450); RBC Distribution Width CV 21.2 % (11.6-14.6); RBC Distribution Width SD 70.3 fl (35.1-43.9); White Blood Count 2.7 K/mm3 (4.4-11.0)
[2021-10-11 07:19] LABS: Differential Indicated SCAN CRITERIA MET
[2021-10-11 07:49] LABS: Anion Gap 7 (5-15); BUN 79 mg/dL (7-18); BUN/Creat Ratio 29.4 RATIO (10-20); Chloride 102 mmol/L (98-107); Creatinine, Serum 2.69 mg/dL (0.70-1.30); EST Glomerular Filtration Rate 25 mL/min (>60); Est Glom Filt Rate - Afr Amer 30 mL/min (>60); Estimated Creatinine Clearance 25.07 ml/min; Glucose 109 mg/dL (74-106); Potassium 4.1 mmol/L (3.5-5.1); Sodium Level 136 mmol/L (136-145)
--- NOTE | 2021-10-11 08:06 | PCM.PN.SRG ---
Subjective Subjective Patient tolerated dialysis was last night without any issues. Planning for dialysis again today unsure about Wednesday. Patient is scheduled for a tunneled dialysis catheter on Wednesday at 9:30 AM Objective Data Objective Data Vital Signs: Vital Signs Temp Pulse Resp BP Pulse Ox 98.2 F 109 H 18 104/81 H 97 10/11/21 02:53 10/11/21 07:00 10/11/21 02:53 10/11/21 02:53 10/11/21 02:53 Oxygen Delivery Method Room Air Weight: 204 lb 9.423 oz Body Mass Index (BMI) 30.8 Intake & Output: Intake and Output for Last 24 Hours 10/09/21 10/10/21 10/11/21 23:59 23:59 23:59 Intake Total 480 / 480 180 / 180 Output Total 600 / 600 Balance 480 / -20 -420 / -420 Lab / Micro Data Result Diagrams: 10/11/21 06:44 10/11/21 06:44 Labs: Laboratory Results - last 24 hr 10/10/21 09:05: WBC 2.4 L, RBC 3.29 L, Hgb 9.5 L, Hct 31.3 L, MCV 95.1 H, MCH 28.9, MCHC 30.4 L, RDW Std Deviation 74.3 H, RDW Coeff of Rafael 21.4 H, Plt Count 153, MPV 11.3, Immature Gran % (Auto) 0.800, Neut % (Auto) 83.7 H, Lymph % (Auto) 8.0 L, [place] % (Auto) 6.3, Eos % (Auto) 0.4, Baso % (Auto) 0.8, Absolute Neuts (auto) 2.0, Absolute Lymphs (auto) 0.19 L, Nucleated RBC % 0.8, Diff Path Review Reviewed, Platelet Estimate ADEQUATE, Polychromasia 1+, Poikilocytosis 1+, Anisocytosis 1+, Microcytosis 1+, Tear Drop Cells 1+, Ovalocytes 1+ 10/10/21 09:05: Sodium 139, Potassium 4.3, Chloride 104, Carbon Dioxide 28.0, Anion Gap 7, BUN 98 H, Creatinine 3.28 H, Estim Creat Clear Calc 20.56, Est GFR (MDRD) Af Amer 24 L, Est GFR (MDRD) Non-Af 20 L, BUN/Creatinine Ratio 29.9 H, Glucose 103, Calcium 5.9 L*, Total Bilirubin 0.60, Direct Bilirubin 0.25, AST 8 L, ALT 9 L, Alkaline Phosphatase 44 L, Total Protein 6.6, Albumin 3.5, Globulin 3.1 10/10/21 09:05: B-Natriuretic Peptide 2023.5 H 10/10/21 09:05: PT 17.2 H, INR 1.5 10/11/21 06:44: WBC 2.7 L, RBC 3.30 L, Hgb 9.6 L, Hct 30.2 L, MCV 91.5, MCH 29.1, MCHC 31.8 L, RDW Std Deviation 70.3 H, RDW Coeff of Rafael 21.2 H, Plt Count 151, MPV 11.6, Immature Gran % (Auto) 0.700, Neut % (Auto) 82.5 H, Lymph % (Auto) 8.4 L, [place] % (Auto) 7.3, Eos % (Auto) 0.4, Baso % (Auto) 0.7, Absolute Neuts (auto) 2.3, Absolute Lymphs (auto) 0.23 L, Nucleated RBC % 1.1 10/11/21 06:44: Sodium 136, Potassium 4.1, Chloride 102, Carbon Dioxide 27.0, Anion Gap 7, BUN 79 H, Creatinine 2.69 H, Estim Creat Clear Calc 25.07, Est GFR (MDRD) Af Amer 30 L, Est GFR (MDRD) Non-Af 25 L, BUN/Creatinine Ratio 29.4 H, Glucose 109 H, Calcium 6.0 L* Radiography Diagnostic Testing: Radiology Impression Chest X-Ray 10/10/21 09:27 IMPRESSION: Persistent bilateral pulmonary infiltrates although there has been improvement as compared to prior study. Electronically Signed: Alcon Suarez MD at 9:55 EDT , Chest X-Ray 10/10/21 11:40 IMPRESSION: Status post right dialysis catheter insertion with the tip at the junction of the superior vena cava and right atrium. Electronically Signed: Alcon Suarez MD at 12:11 EDT , Physical Exam Narrative Right IJ temporary dialysis catheter in place. Const oriented x3 and no apparent distress Resp normal respiratory effort Cardio regular rate GI soft to palpation and non-tender Inspection: abdominal distention Assessment & Plan Assessment/Plan (1) Acute renal failure: (2) Hyperkalemia, diminished renal excretion: (3) Chronic heart failure with preserved ejection fraction (HFpEF): (4) Paroxysmal atrial fibrillation: PLAN: Patient is scheduled for tunneled dialysis catheter on Wednesday at 9:30 AM. Discussed with dialysis nurse would plan to have dialysis catheter removed prior to that. Patient is having dialysis today unsure about tomorrow. We will plan to hold Eliquis until after the tunneled dialysis catheters placed okay for prophylactic anticoagulation with Lovenox or heparin. d/w Dr. Sibley. Plan to hold anticoagulation Wednesday night and also make n.p.o. at midnight. Patricia Vincent M.D. Pager: [phone] [facility] [address] [place] [address], [facility], [address] [place] [address] Office: [phone] Charges/Coding Visit Charges Inpatient E&M: 38235 Subs Hosp L2
[2021-10-11 08:19] LABS: Anisocytosis 2+
[2021-10-11] MEDS: Calcium (Elemental) 500 MG Tablet PO ×3 (09:09→16:32)
[2021-10-11] MEDS: Gemfibrozil 600 MG Tablet PO (09:09)
[2021-10-11] MEDS: Allopurinol 300 MG Tablet PO (09:09)
[2021-10-11] MEDS: Amiodarone 200 MG Tablet PO (11:03)
--- NOTE | 2021-10-11 11:10 | PCM.PN.REN ---
Subjective Subjective Following patient for ESRD. The patient is seen during his second hemodialysis treatment. The patient denies chest pain, shortness of breath at rest, or nausea. He still has significant abdominal distention. Objective Data Objective Data Vital Signs: Vital Signs Temp Pulse Resp BP Pulse Ox 97.6 F L 110 H 16 97/72 98 10/11/21 08:00 10/11/21 08:00 10/11/21 08:00 10/11/21 08:00 10/11/21 08:00 Oxygen Delivery Method Room Air Weight: 92.8 kg Body Mass Index (BMI) 30.8 Intake & Output: Intake and Output for Last 24 Hours 10/09/21 10/10/21 10/11/21 23:59 23:59 23:59 Intake Total 480 / 480 180 / 180 Output Total 600 / 600 Balance 480 / -20 -420 / -420 Lab / Micro Data Result Diagrams: 10/11/21 06:44 10/11/21 06:44 Labs: Laboratory Results - last 24 hr 10/10/21 09:05: Diff Path Review Reviewed 10/11/21 06:44: WBC 2.7 L, RBC 3.30 L, Hgb 9.6 L, Hct 30.2 L, MCV 91.5, MCH 29.1, MCHC 31.8 L, RDW Std Deviation 70.3 H, RDW Coeff of Rafael 21.2 H, Plt Count 151, MPV 11.6, Immature Gran % (Auto) 0.700, Neut % (Auto) 82.5 H, Lymph % (Auto) 8.4 L, [place] % (Auto) 7.3, Eos % (Auto) 0.4, Baso % (Auto) 0.7, Absolute Neuts (auto) 2.3, Absolute Lymphs (auto) 0.23 L, Nucleated RBC % 1.1, Diff Path Review May foll, Anisocytosis 2+ 10/11/21 06:44: Sodium 136, Potassium 4.1, Chloride 102, Carbon Dioxide 27.0, Anion Gap 7, BUN 79 H, Creatinine 2.69 H, Estim Creat Clear Calc 25.07, Est GFR (MDRD) Af Amer 30 L, Est GFR (MDRD) Non-Af 25 L, BUN/Creatinine Ratio 29.4 H, Glucose 109 H, Calcium 6.0 L* Radiography Diagnostic Testing: Radiology Impression Chest X-Ray 10/10/21 09:27 IMPRESSION: Persistent bilateral pulmonary infiltrates although there has been improvement as compared to prior study. Electronically Signed: Alcon Suarez MD at 9:55 EDT , Chest X-Ray 10/10/21 11:40 IMPRESSION: Status post right dialysis catheter insertion with the tip at the junction of the superior vena cava and right atrium. Electronically Signed: Alcon Suarez MD at 12:11 EDT , Physical Exam Narrative General: Alert oriented x3 Cardio: S1, S2, rhythm irregular, rate controlled Respiratory: Clear anteriorly, diminished breath sounds posterior bases Abdomen: Distended and firm. However, there is no pain on palpation Extremities: +2 pitting edema Assessment & Plan Assessment/Plan (1) ESRD (end stage renal disease): PLAN: -ESRD is due to cardiorenal syndrome. -Patient presented to the emergency room on 10/10/2021 with complaints of worsening edema, shortness of breath and weight gain of at least 20 pounds. --Patient has a known history of chronic kidney disease stage III possibly from cardiorenal syndrome physiology (renal serologies were unremarkable in August 2021). -Patient is hypervolemic, failed outpatient diuretic therapy. Chest x-ray showed persistent bilateral pulmonary infiltrates. -Above was discussed with patient and his who is at bedside that recommend dialysis at this time to help assist with hypervolemia and volume control. -Risks and benefits of BUSINESS BANKING REPRESENTATIVE explained and both patient and are in agreement. -Appreciate surgery help with dialysis access. He is scheduled for tunneled hemodialysis catheter on 10/05/2021. -Consult discharge planning team to arrange for dialysis at [facility]. Further orders forthcoming as hospitalization evolves, thank you for letting us participate in the care of Mr. Kenney. (2) Chronic kidney disease, stage 3b: PLAN: -Serum creatinine prior to this admission was 2.12 mg/dL on 09/07/2021. However, serum creatinine has increased to 3.28 mg/dL with marked volume overload. Current and prior serum creatinine likely overestimates true GFR because of volume overload. -I suspect that the true baseline renal function is worse than what the estimated GFR is. -As above, I do not think the patient will be able to handle volume overload with medical therapy. Dialysis has been started. (3) Heart failure with reduced ejection fraction: PLAN: -Echocardiogram from 09/10/2021 showed ejection fraction of 40%. The patient had moderate segmental systolic dysfunction with mildly dilated right ventricle and right ventricular systolic dysfunction. -We will remove fluid with dialysis. -Now that the patient is on dialysis, ARB or CHRIS inhibitor can be added if needed. (4) Hypocalcemia: PLAN: -Patient is to be on calcium supplements. -We will check phosphorus level tomorrow to make sure that hypocalcemia is not due to hyperphosphatemia. (5) Myelofibrosis: PLAN: -Patient has history of myelofibrosis, chronic anemia and receives CITLALI outpatient. We will give CITLALI with HD. Patient has a history of chronic hypocalcemia, work-up in the past was unremarkable. (6) Paroxysmal atrial fibrillation: PLAN: -Patient has a history of atrial fibrillation/flutter and was planned for ablation next week. -The patient is on Eliquis. Oral anticoagulation will likely need to be discontinued for 2 days prior to tunneled dialysis catheter placement. I will discuss with surgery.
[2021-10-11] MEDS: APIXABAN 2.5 MG TABLET PO (11:14)
[2021-10-11] MEDS: Furosemide 80 MG Tablet PO (11:14)
[2021-10-11] MEDS: Metoprolol(XL)Succ 100 MG Tablet PO ×2 (11:14→21:17)
--- NOTE | 2021-10-11 12:04 | DIALYSIS ---
HD today 3hr uf -2500ml tolerated well post bp 109/57 Next tx will be Thursday 10/12 RIJ will be d/c'd after tx per Dr. Nieto and tunnelled catheter is scheduled to be placed Wednesday
[2021-10-11] MEDS: 0.9% Saline Lock 10 ML Syringe IV (12:33)
--- NOTE | 2021-10-11 13:35 | PN.HOSP_ITS ---
Subjective Subjective Patient seen and examined. He had no active complaints and for the shortness of breath and abdominal distention as well as swelling in his legs had improved significantly. He did have dialysis yesterday with removal of about 600 mils of fluid. He is to have another session of dialysis today. Calcium is low at 6 today creatinine is now 2.69. Objective Data Objective Data Vital Signs: Vital Signs Temp Pulse Resp BP Pulse Ox 97.6 F L 110 H 16 97/72 98 10/11/21 08:00 10/11/21 11:14 10/11/21 08:00 10/11/21 08:00 10/11/21 08:00 Oxygen Delivery Method Room Air Weight: 204 lb 9.423 oz Body Mass Index (BMI) 30.8 Intake & Output: Intake and Output for Last 24 Hours 10/09/21 10/10/21 10/11/21 23:59 23:59 23:59 Intake Total 480 / 480 180 / 180 Output Total 600 / 600 Balance 480 / -20 -420 / -420 Lab / Micro Data Result Diagrams: 10/11/21 06:44 10/11/21 06:44 Labs: Laboratory Results - last 24 hr 10/11/21 06:44: WBC 2.7 L, RBC 3.30 L, Hgb 9.6 L, Hct 30.2 L, MCV 91.5, MCH 29.1, MCHC 31.8 L, RDW Std Deviation 70.3 H, RDW Coeff of Rafael 21.2 H, Plt Count 151, MPV 11.6, Immature Gran % (Auto) 0.700, Neut % (Auto) 82.5 H, Lymph % (Auto) 8.4 L, Amador % (Auto) 7.3, Eos % (Auto) 0.4, Baso % (Auto) 0.7, Absolute Neuts (auto) 2.3, Absolute Lymphs (auto) 0.23 L, Nucleated RBC % 1.1, Diff Path Review November foll, Anisocytosis 2+ 10/11/21 06:44: Sodium 136, Potassium 4.1, Chloride 102, Carbon Dioxide 27.0, Anion Gap 7, BUN 79 H, Creatinine 2.69 H, Estim Creat Clear Calc 25.07, Est GFR (MDRD) Af Amer 30 L, Est GFR (MDRD) Non-Af 25 L, BUN/Creatinine Ratio 29.4 H, Glucose 109 H, Calcium 6.0 L* Radiography Diagnostic Testing: Radiology Impression Chest X-Ray 10/10/21 09:27 IMPRESSION: Persistent bilateral pulmonary infiltrates although there has been improvement as compared to prior study. Electronically Signed: Alcon Suarez MD at 9:55 EDT , Chest X-Ray 10/10/21 11:40 IMPRESSION: Status post right dialysis catheter insertion with the tip at the junction of the superior vena cava and right atrium. Electronically Signed: Alcon Suarez MD at 12:11 EDT , Physical Exam Const alert, oriented x3 and no apparent distress General Appearance: cooperative Exam Limitations: no limitations HEENT normocephalic, head/scalp atraumatic, hearing grossly normal bilaterally and moist oral mucous membranes Head and Scalp: normocephalic Eyes PERRL, EOMs intact bilaterally and conjunctivae normal Neck no lymphadenopathy and supple Resp normal respiratory effort, no retractions, no use of accessory muscles and clear to auscultation bilaterally Cardio regular rate, regular rhythm, S1 normal heart sound, S2 normal heart sound and no murmurs GI GI Narrative: abdominal distension has improved positive fluid thrill, Non tender, no organomegaly Extremity normal to inspection and full ROM Extremity Narrative: 2+ bipedal pitting edema Peripheral Pulses: Yes pulses 2+ throughout Skin no rashes or lesions noted Neuro oriented x3, CN's II-XII intact bilaterally and moves all extremities Sensorium / Orientation: awake and alert Psych affect normal Assessment & Plan Assessment/Plan (1) Acute renal failure: (2) Renal anasarca: PLAN: #Ascites and fluid overload due to worsening CKD * Had temporary dialysis catheter inserted for dialysis yesterday * had removal of 600mls of fluid * for dialysis again today * for insertion of tunneled dialysis catheter next week * k. * #Acute on chronic exacerbation of heart failure * BNP is 2022 though he also has elevated creatinine so this may not be very accurate * Unable to be diuresed as this worsens his kidney function. For initiation of dialysis to help with fluid removal. * had dialysis yesterday, and to have dialysis today for removal of fluid. * #Hypocalcemia: Calcium is 6 today. Will replace. Nephrology on board. This is chronic #A. fib: * Currently rate controlled. On amiodarone. Eliquis held. * Will put on Lovenox 30 mg daily for now. To resume Eliquis once he is at the tunneled dialysis catheter inserted * Had ablation done a Gabriele only 2020 which was unsuccessful and is to have repeat ablation at this clinic. * #History of chronic myelofibrosis: Follows with oncology at [facility]. On darb epoetin, iron supplement and fedratinib. #BPH: On finasteride #Hypothyroidism: On Synthroid #Hypertension: On metoprolol DVT prophylaxis: Lovenox 30 mg daily CODE STATUS: Full code * Charges/Coding Visit Charges Inpatient E&M: 39318 Subs Hosp L2
[2021-10-11] MEDS: Loperamide 2 MG Capsule PO (13:47)
[2021-10-11] MEDS: Finasteride 5 MG Tablet PO (21:17)
[2021-10-11] MEDS: Tamsulosin HCl 0.4 MG Capsule PO (21:17)
[2021-10-11] MEDS: Enoxaparin 30 MG/0.3 ML Syringe SC (22:18)
[2021-10-12] VITALS (15 sets, daily range): BP systolic 91–108; BP diastolic 68–75; PULSE 79–122; RESP 18–20; TEMP 36.6–36.9; O2SAT 92–97; BMI 30.4
[2021-10-12 06:00] LABS: Absolute Lymphocyte Count 0.35 X10^3/uL (0.83-4.51); Absolute Neutrophil Count 2.4 X10^3/uL (2.0-7.7); Basophil# 0.03 X10^3/uL; Eosinophil# 0.01 X10^3/uL; Eosinophils% 0.3 % (0-5); Hematocrit 31.8 % (40-54); Hemoglobin 9.7 g/dL (13.0-16.5); Lymphocyte # 0.35 X10^3/ul (0.83-4.51); Lymphocyte % 11.4 % (19-41); Mean Corp Hgb Conc 30.5 g/dL (32-36); Mean Corpuscular Hgb 28.4 pg (27.0-32.0); Mean Corpuscular Volume 93.3 fL (80-94); Mean Platelet Vol. 10.2 fl (6.2-12.0); Monocyte# 0.23 X10^3/uL; Monocyte% 7.5 % (0-10); Neutrophil # 2.41 X10^3/uL (2.7-7.7); Neutrophil % 78.8 % (47-70); POSITIVE DIFFERENTIAL YES; POSITIVE MORPHOLOGY YES; Platelet Count 162 K/mm3 (150-450); RBC Distribution Width CV 21.2 % (11.6-14.6); RBC Distribution Width SD 71.8 fl (35.1-43.9); Red Blood Count 3.41 M/mm3 (4.6-6.2); White Blood Count 3.1 K/mm3 (4.4-11.0)
[2021-10-12 06:09] LABS: Differential Indicated SCAN CRITERIA MET
[2021-10-12 06:22] LABS: Anion Gap 7 (5-15); Anisocytosis 2+; BUN 63 mg/dL (7-18); BUN/Creat Ratio 26.6 RATIO (10-20); Calcium,Total 6.7 mg/dL (8.5-10.1); Chloride 104 mmol/L (98-107); Creatinine, Serum 2.37 mg/dL (0.70-1.30); EST Glomerular Filtration Rate 29 mL/min (>60); Est Glom Filt Rate - Afr Amer 35 mL/min (>60); Estimated Creatinine Clearance 28.46 ml/min; Glucose 101 mg/dL (74-106); Potassium 4.1 mmol/L (3.5-5.1); Sodium Level 138 mmol/L (136-145)
[2021-10-12 06:31] LABS: Phosphorus 4.4 mg/dL (2.5-4.9)
[2021-10-12] MEDS: Levothyroxine 150 MCG Tablet 300 MCG PO (06:34)
[2021-10-12] MEDS: Iron Polysaccharide Complex 150 MG CAPSULE PO (08:18)
[2021-10-12] MEDS: Gemfibrozil 600 MG Tablet PO (08:18)
[2021-10-12] MEDS: Calcium (Elemental) 500 MG Tablet PO ×3 (08:18→17:15)
[2021-10-12] MEDS: Allopurinol 300 MG Tablet PO (08:18)
[2021-10-12] MEDS: Furosemide 80 MG Tablet PO (08:19)
--- NOTE | 2021-10-12 08:54 | PN.SURG_ITS ---
Subjective Subjective Patient is currently getting ready to have dialysis again this morning. Plan to pull the dialysis catheter after dialysis today. Objective Data Objective Data Vital Signs: Vital Signs Temp Pulse Resp BP Pulse Ox 98 F 109 H 20 H 91/74 97 10/12/21 08:26 10/12/21 08:26 10/12/21 08:26 10/12/21 08:26 10/12/21 08:26 Oxygen Delivery Method Room Air Weight: 200 lb 2.876 oz Body Mass Index (BMI) 30.8 Intake & Output: Intake and Output for Last 24 Hours 10/10/21 10/11/21 10/12/21 23:59 23:59 23:59 Intake Total 480 / 480 420 / 420 Output Total 1000 / 1000 220 / 220 Balance 480 / -20 -580 / -580 -220 / -220 Lab / Micro Data Result Diagrams: 10/12/21 05:32 10/12/21 05:32 Labs: Laboratory Results - last 24 hr 10/12/21 05:32: WBC 3.1 L, RBC 3.41 L, Hgb 9.7 L, Hct 31.8 L, MCV 93.3, MCH 28.4, MCHC 30.5 L, RDW Std Deviation 71.8 H, RDW Coeff of Rafael 21.2 H, Plt Count 162, MPV 10.2, Immature Gran % (Auto) 1.000 H, Neut % (Auto) 78.8 H, Lymph % (Auto) 11.4 L, Elk % (Auto) 7.5, Eos % (Auto) 0.3, Baso % (Auto) 1.0, Absolute Neuts (auto) 2.4, Absolute Lymphs (auto) 0.35 L, Nucleated RBC % 1.0, Diff Path Review May foll, Anisocytosis 2+ 10/12/21 05:32: Sodium 138, Potassium 4.1, Chloride 104, Carbon Dioxide 27.0, Anion Gap 7, BUN 63 H, Creatinine 2.37 H, Estim Creat Clear Calc 28.46, Est GFR (MDRD) Af Amer 35 L, Est GFR (MDRD) Non-Af 29 L, BUN/Creatinine Ratio 26.6 H, Glucose 101, Calcium 6.7 L 10/12/21 05:32: Phosphorus 4.4 Physical Exam Narrative Right IJ temporary dialysis catheter in place. Resp normal respiratory effort Cardio regular rate Assessment & Plan Assessment/Plan (1) Acute renal failure: (2) Hyperkalemia, diminished renal excretion: (3) Chronic heart failure with preserved ejection fraction (HFpEF): (4) Paroxysmal atrial fibrillation: PLAN: Patient will have the dialysis catheter removed after dialysis today. Patient will have a tunneled dialysis catheter placed Wednesday at 930. Will make n.p.o. at midnight and hold anticoagulation at night. Patient no further questions about the procedure. Patricia Vincent M.D. Pager: [phone] [facility] [address] [place] [address], [facility], [address] [place] [address] Office: [phone] Charges/Coding Visit Charges Inpatient E&M: 14977 Subs Hosp L2
--- NOTE | 2021-10-12 10:48 | PN.RENAL_ITS ---
Subjective Subjective Following for ESRD. The patient feels better overall after 2 dialysis treatments. He is being dialyzed today for his third treatment. He denies cramping. He is less short of breath. There is no chest pain, nausea or vomiting. Objective Data Objective Data Vital Signs: Vital Signs Temp Pulse Resp BP Pulse Ox 98 F 109 H 20 H 91/74 97 10/12/21 08:26 10/12/21 08:26 10/12/21 08:26 10/12/21 08:26 10/12/21 08:26 Oxygen Delivery Method Room Air Weight: 90.8 kg Body Mass Index (BMI) 30.8 Intake & Output: Intake and Output for Last 24 Hours 10/10/21 10/11/21 10/12/21 23:59 23:59 23:59 Intake Total 480 / 480 420 / 420 Output Total 1000 / 1000 220 / 220 Balance 480 / -20 -580 / -580 -220 / -220 Lab / Micro Data Result Diagrams: 10/12/21 05:32 10/12/21 05:32 Labs: Laboratory Results - last 24 hr 10/12/21 05:32: WBC 3.1 L, RBC 3.41 L, Hgb 9.7 L, Hct 31.8 L, MCV 93.3, MCH 28.4, MCHC 30.5 L, RDW Std Deviation 71.8 H, RDW Coeff of Rafael 21.2 H, Plt Count 162, MPV 10.2, Immature Gran % (Auto) 1.000 H, Neut % (Auto) 78.8 H, Lymph % (Auto) 11.4 L, Phillips % (Auto) 7.5, Eos % (Auto) 0.3, Baso % (Auto) 1.0, Absolute Neuts (auto) 2.4, Absolute Lymphs (auto) 0.35 L, Nucleated RBC % 1.0, Diff Path Review May foll, Anisocytosis 2+ 10/12/21 05:32: Sodium 138, Potassium 4.1, Chloride 104, Carbon Dioxide 27.0, Anion Gap 7, BUN 63 H, Creatinine 2.37 H, Estim Creat Clear Calc 28.46, Est GFR (MDRD) Af Amer 35 L, Est GFR (MDRD) Non-Af 29 L, BUN/Creatinine Ratio 26.6 H, Glucose 101, Calcium 6.7 L 10/12/21 05:32: Phosphorus 4.4 Physical Exam Narrative General: Alert oriented x3 Cardio: S1, S2, rhythm irregular, rate controlled Respiratory: Clear anteriorly, diminished breath sounds posterior bases Abdomen: Distended and firm. However, there is no pain on palpation Extremities: +2 pitting edema of the lower extremities Assessment & Plan Assessment/Plan (1) ESRD (end stage renal disease): PLAN: -ESRD is due to cardiorenal syndrome. -Patient presented to the emergency room on 10/10/2021 with complaints of worsening edema, shortness of breath and weight gain of at least 20 pounds. -Patient has a known history of chronic kidney disease stage III-IV possibly from cardiorenal syndrome physiology (renal serologies were unremarkable in August 2021). -Patient is hypervolemic, and he has failed outpatient diuretic therapy. Chest x-ray showed persistent bilateral pulmonary infiltrates. -Above was discussed with patient and his that we recommend dialysis at this time to help assist with hypervolemia and volume control. -Appreciate surgery help with dialysis access. He is scheduled for tunneled he modialysis catheter on 10/05/2021. -He is undergoing a third dialysis today which I supervised. We are using F1 60 dialyzer with blood flow of 350 mL/min. Further volume will be removed to assist with the patient's ability to lay flat for tunneled dialysis catheter placement tomorrow. -Consult discharge planning team to arrange for dialysis at [facility]. -Further orders forthcoming as hospitalization evolves, thank you for letting us participate in the care of Mr. Kenney. (2) Chronic kidney disease, stage 3b: PLAN: -Serum creatinine prior to this admission was 2.12 mg/dL on 09/07/2021. However, serum creatinine has increased to 3.28 mg/dL with marked volume overload. Current and prior serum creatinine likely overestimates true GFR because of volume overload. -I suspect that the true baseline renal function is worse than what the estimated GFR is. -As above, I do not think the patient will be able to handle volume overload with medical therapy. Dialysis has been started. (3) Heart failure with reduced ejection fraction: PLAN: -Echocardiogram from 09/10/2021 showed ejection fraction of 40%. The patient had moderate segmental systolic dysfunction with mildly dilated right ventricle and right ventricular systolic dysfunction. -We will remove fluid with dialysis. -Now that the patient is on dialysis, ARB or HCRIS inhibitor can be added if needed. (4) Hypocalcemia: PLAN: -Patient is to be on calcium supplements. Calcium level is better today. -Phosphorus level is acceptable. There is no need for phosphorus binder. -We will check PTH as outpatient at dialysis unit. (5) Myelofibrosis: PLAN: -Patient has history of myelofibrosis, chronic anemia and receives CITLALI outpatient. We will give CITLALI with HD as outpatient. (6) Paroxysmal atrial fibrillation: PLAN: -Patient has a history of atrial fibrillation/flutter and was planned for ablation next week. -The patient is on Eliquis. Oral anticoagulation is being held prior to t unneled dialysis catheter placement.
--- NOTE | 2021-10-12 11:38 | PN.HOSP_ITS ---
Subjective Subjective Patient seen and examined. He had no complaints and had an uneventful night. Review of systems was otherwise negative. He is having dialysis again today. Objective Data Objective Data Vital Signs: Vital Signs Temp Pulse Resp BP Pulse Ox 98 F 109 H 20 H 91/74 97 10/12/21 08:26 10/12/21 08:26 10/12/21 08:26 10/12/21 08:26 10/12/21 08:26 Oxygen Delivery Method Room Air Weight: 200 lb 2.876 oz Body Mass Index (BMI) 30.8 Intake & Output: Intake and Output for Last 24 Hours 10/10/21 10/11/21 10/12/21 23:59 23:59 23:59 Intake Total 480 / 480 420 / 420 Output Total 1000 / 1000 220 / 220 Balance 480 / -20 -580 / -580 -220 / -220 Lab / Micro Data Result Diagrams: 10/12/21 05:32 10/12/21 05:32 Labs: Laboratory Results - last 24 hr 10/12/21 05:32: WBC 3.1 L, RBC 3.41 L, Hgb 9.7 L, Hct 31.8 L, MCV 93.3, MCH 28.4, MCHC 30.5 L, RDW Std Deviation 71.8 H, RDW Coeff of Rafael 21.2 H, Plt Count 162, MPV 10.2, Immature Gran % (Auto) 1.000 H, Neut % (Auto) 78.8 H, Lymph % (Auto) 11.4 L, Collingsworth % (Auto) 7.5, Eos % (Auto) 0.3, Baso % (Auto) 1.0, Absolute Neuts (auto) 2.4, Absolute Lymphs (auto) 0.35 L, Nucleated RBC % 1.0, Diff Path Review May foll, Anisocytosis 2+ 10/12/21 05:32: Sodium 138, Potassium 4.1, Chloride 104, Carbon Dioxide 27.0, Anion Gap 7, BUN 63 H, Creatinine 2.37 H, Estim Creat Clear Calc 28.46, Est GFR (MDRD) Af Amer 35 L, Est GFR (MDRD) Non-Af 29 L, BUN/Creatinine Ratio 26.6 H, Glucose 101, Calcium 6.7 L 10/12/21 05:32: Phosphorus 4.4 Physical Exam Const alert, oriented x3 and no apparent distress General Appearance: cooperative Exam Limitations: no limitations HEENT normocephalic, head/scalp atraumatic, hearing grossly normal bilaterally and moist oral mucous membranes Head and Scalp: normocephalic Eyes PERRL, EOMs intact bilaterally and conjunctivae normal Neck no lymphadenopathy and supple Resp normal respiratory effort, no retractions, no use of accessory muscles and clear to auscultation bilaterally Cardio regular rate, regular rhythm, S1 normal heart sound, S2 normal heart sound and no murmurs GI GI Narrative: abdominal distension has largely resolved. Extremity normal to inspection and full ROM Extremity Narrative: 1+ bipedal pitting edema Peripheral Pulses: Yes pulses 2+ throughout Skin no rashes or lesions noted Neuro oriented x3, CN's II-XII intact bilaterally and moves all extremities Sensorium / Orientation: awake and alert Psych affect normal Assessment & Plan Assessment/Plan (1) Acute renal failure: (2) Renal anasarca: PLAN: #Ascites and fluid overload due to worsening CKD * Had temporary dialysis catheter inserted for dialysis * has had dialysis 2 days in a row. For dialysis later today. * for insertion of tunneled dialysis catheter tomorrow * k. * #Acute on chronic exacerbation of heart failure * BNP is 2022 though he also has elevated creatinine so this may not be very accurate * Unable to be diuresed as this worsens his kidney function. For initiation of dialysis to help with fluid removal. * had dialysis yesterday, and to have dialysis today for removal of fluid. * #Hypocalcemia: Calcium is 6 today. Will replace. Nephrology on board. This is chronic #A. fib: * Currently rate controlled. On amiodarone. Eliquis held. * Will put on Lovenox 30 mg daily for now. To resume Eliquis once he is at the tunneled dialysis catheter inserted * Had ablation done in 2020 which was unsuccessful and is to have repeat ablation later. * #History of chronic myelofibrosis: Follows with oncology at [facility]. On darbepoetin, iron supplement and fedratinib. #BPH: On finasteride #Hypothyroidism: On Synthroid #Hypertension: On metoprolol DVT prophylaxis: Lovenox 30 mg daily CODE STATUS: Full code * Charges/Coding Visit Charges Inpatient E&M: 53488 Subs Hosp L2
--- NOTE | 2021-10-12 13:14 | DIALYSIS ---
Hemodialysis tx completed x 3.5 hours without complications. Pt tolerated tx well, fluid removed 3,000ml using crit-line monitor to B-profile. Vitals stable throughout tx. Post dialysis Right IJ CVC discontinued as ordered without complications, pressure held to site, stasis achieved, and dressing applied. Verbal report given to ROMÁN Martinez
[2021-10-12] MEDS: Enoxaparin 30 MG/0.3 ML Syringe SC (13:15)
[2021-10-12] MEDS: Metoprolol(XL)Succ 100 MG Tablet PO (21:13)
[2021-10-12] MEDS: Tamsulosin HCl 0.4 MG Capsule PO (21:14)
[2021-10-12] MEDS: Finasteride 5 MG Tablet PO (21:14)
[2021-10-13] VITALS (17 sets, daily range): BP systolic 91–109; BP diastolic 60–80; PULSE 65–120; RESP 16–18; TEMP 36.4–37.2; O2SAT 91–96; BMI 29.7
[2021-10-13 05:53] LABS: Absolute Lymphocyte Count 0.33 X10^3/uL (0.83-4.51); Absolute Neutrophil Count 2.2 X10^3/uL (2.0-7.7); Basophil# 0.03 X10^3/uL; Eosinophil# 0.01 X10^3/uL; Eosinophils% 0.3 % (0-5); Hematocrit 30.9 % (40-54); Hemoglobin 9.5 g/dL (13.0-16.5); Lymphocyte # 0.33 X10^3/ul (0.83-4.51); Lymphocyte % 11.5 % (19-41); Mean Corp Hgb Conc 30.7 g/dL (32-36); Mean Corpuscular Hgb 27.9 pg (27.0-32.0); Mean Corpuscular Volume 90.6 fL (80-94); Mean Platelet Vol. 10.4 fl (6.2-12.0); Monocyte# 0.23 X10^3/uL; NRBC Flagged by Analyzer 0.7 % (0-5); Neutrophil # 2.22 X10^3/uL (2.7-7.7); Neutrophil % 77.5 % (47-70); POSITIVE DIFFERENTIAL YES; POSITIVE MORPHOLOGY YES; Platelet Count 154 K/mm3 (150-450); RBC Distribution Width SD 68.6 fl (35.1-43.9); Red Blood Count 3.41 M/mm3 (4.6-6.2); White Blood Count 2.9 K/mm3 (4.4-11.0)
--- NOTE | 2021-10-13 05:55 | EKG12_ITS ---
Test Reason : PRE OP Blood Pressure : / mmHG Vent. Rate : 083 BPM Atrial Rate : 117 BPM P-R Int : 000 ms QRS Dur : 104 ms QT Int : 444 ms P-R-T Axes : 061 -11 237 degrees QTc Int : 521 ms Normal sinus rhythm with PAF ST & T wave abnormality, consider anterolateral ischemia Prolonged QT Abnormal ECG When compared with ECG of 10-OCT-2021 09:27, MANUAL COMPARISON REQUIRED, DATA IS UNCONFIRMED Confirmed by LEAH CHINCHILLA, RACIEL ([id number]), senior technical editor SUJATHA FERNÁNDEZ ([id number]) on 10/14/2021 11:18:53 AM Referred By: WILTON Confirmed By:RACIEL LYNN MD
[2021-10-13 06:06] LABS: International Normalized Ratio 1.5; Prothrombin Time (Protime)PT. 17.1 SECONDS (11.7-14.9)
[2021-10-13 06:12] LABS: Partial Thromboplast Time 43.1 Seconds (24.1-36.2)
[2021-10-13 06:25] LABS: Differential Indicated SCAN CRITERIA MET
[2021-10-13 06:33] LABS: Differential Comment SCANNED
[2021-10-13 06:34] LABS: Anisocytosis 2+
[2021-10-13 06:35] LABS: AST(SGOT) 4 U/L (15-37); Alanine Aminotransfer ALT/SGPT 9 U/L (16-61); Albumin, Serum 3.4 g/dL (3.2-5.0); Alkaline Phosphatase 47 U/L (45-117); Anion Gap 8 (5-15); BUN 49 mg/dL (7-18); BUN/Creat Ratio 22.8 RATIO (10-20); Calcium,Total 6.8 mg/dL (8.5-10.1); Chloride 102 mmol/L (98-107); Creatinine, Serum 2.15 mg/dL (0.70-1.30); EST Glomerular Filtration Rate 33 mL/min (>60); Est Glom Filt Rate - Afr Amer 39 mL/min (>60); Estimated Creatinine Clearance 31.37 ml/min; Globulin 3.3 g/dL (2.2-4.2); Glucose 97 mg/dL (74-106); Microcytosis 1+; Ovalocyte 1+; Potassium 3.9 mmol/L (3.5-5.1); Protein, Total 6.7 g/dL (6.4-8.2); Sodium Level 137 mmol/L (136-145); Thyroid Stim Hormone (TSH) 1.45 uIU/mL (0.358-3.74)
[2021-10-13 06:36] LABS: Hypochromasia 1+; Polychromasia 1+
[2021-10-13] MEDS: 0.9% Normal Saline 1,000 ML 15 ML IV (09:01)
--- NOTE | 2021-10-13 09:13 | CASEMGMT ---
Addendum entered by Susannah Sepulveda 10/13/21 15:35: Pt/ aware 1st OP dialysis to be 10/15/21 at 0610, pt is not happy with time of day but is aware to ask clinic when he goes about a different time of day, voices understanding. Pt is independent in room and states no further concerns/needs. Anderson FRANCE CM Addendum entered by Susannah Sepulveda 10/13/21 15:08: Per Tristen at [facility], pt is medically and financially clear for dialysis. Dr. Carmona aware and awaiting call from Teri to see if he is ok with pt starting OP 10/15/21. Call back from [facility] and [facility] will get schedule letter faxed. Pt updated on all once schedule letter obtained, voices understanding. Anderson FRANCE CM Addendum entered by Susannah Sepulveda 10/13/21 14:12: Message left with Teresa at [facility] to check on schedule letter and confirmed chair time. CM to follow. Anderson FRANCE CM Addendum entered by Susannah Sepulveda 10/13/21 13:55: Updated clinicals faxed to [facility]. Anderson FRANCE CM Addendum entered by Susannah Sepulveda 10/13/21 11:09: Call from Roro at [facility] and she states they will put pt in for MWF 0610 chair time and they will plan on him starting OP on 10/15/21. CM to follow. Anderson FRANCE CM Original Note: Hep B still not resulted. Leo PCU charge, placed call to lab and they state it will be run today. Once resulted, will be faxed to [facility] along with dialysis run sheets. Anderson FRANCE CM
[2021-10-13 09:20] LABS: Hepatitis B Surface Antigen Non-Reactive (Nonreactive)
[2021-10-13] MEDS: Bupivacaine Mpf 0.5% 30 ML VIAL (09:40)
[2021-10-13] MEDS: Lidocaine 1% /Epi 1:100 (20ml) 20 ML Vial (09:40)
[2021-10-13] MEDS: Heparin 10,000 UNITS/10 ML Vial 10000 UNITS (09:55)
--- NOTE | 2021-10-13 10:01 | PCM.OPRPT ---
Report of Operation Date of Procedure: 10/13/21 Pre-Operative Diagnosis: Acute renal failure Post-Operative Diagnosis: Same Surgery/Procedure Performed:: Insertion of right IJ tunneled dialysis catheter Surgeon: Patricia Vincent Type of Anesthesia: Local MAC Anesthesiologist: Andrew Croft Special Medications: Ancef 2 g IV x1 Estimated Blood Loss (mL): < 10 cc Description of Procedure: After informed consent was given, the patient was brought to the operating room and placed in the supine position. Appropriate time out protocol was followed. He was then given IV conscious sedation for anesthesia. The patient's right upper chest and neck were then prepped with a surgical skin preparation and sterile surgical drapes were placed. After proper landmarks were ascertained, the skin at the upper right chest area was then infiltrated with 1:1 mixture of 1% lidocaine with epinephrine and 0.5% maricaine. A needle trocar was then inserted into the right internal jugular vein with ultrasound guidance-multiple vessels were viewed with u/s and the right IJ was chosen-- and there was good aspiration of venous blood. A wire was then threaded into the needle trocar and this was visualized under fluoroscopy to ensure that the wire was in the superior vena cava. Once this was done, then the needle trocar was removed. A small incision was made with an 11 blade knife at the wire entrance site. The dilator x2 with the introducer sheath attached was then placed over the wire into the right internal jugular vein via the Seldinger technique and this was visualized under fluoroscopy. Next the introducer and sheath were in proper position as visualized by fluoroscopy. The location of the cuffed was estimated on the skin, an incision was made with a 15 blade scalpel. The 14.5 Fr x 19 cm Palindrome dual lumen (Lot [id number] reference [id number]) was tunneled from the chest incision to the right neck incision. The sheath was removed. The catheter was placed through the introducer and was positioned with its tip at the junction of the superior vena cava and the right atrium as visualized under fluoroscopy. The cuff of the catheter was in the subcutaneous tissue. The catheter flushed and carlos well with saline. Catheter was also flushed with 1.6 cc of 1-10,000 of heparin. Hemostasis was assured. Silver dressing was placed at the catheter exit site. Catheter was sutured with 3-0 nylon sutures. The neck incision was sutured with interrupted 3-0 Vicryl interrupted sutures x2 and Steri-Strips were placed. A large OpSite was placed over the catheter site and a small OpSite over the neck incision. The patient tolerated the procedure well. Grafts/Implants Used: 14.5 Fr x 19 cm Palindrome dual lumen (Lot [id number] reference [id number]
--- NOTE | 2021-10-13 10:03 | RAD_ITS ---
STUDY: X-RAY CHEST REASON FOR EXAM: Male, 71 years old. Dialysis catheter -- pacu TECHNIQUE: Single AP portable view of the chest. COMPARISON: Comparison is made with prior study 10/10/2021. FINDINGS: A right sided dialysis catheter has been placed. The tip is at the junction of the superior vena cava and right atrium. EKG electrodes are seen. Stable mild pulmonary infiltrate is seen at the right lung base. Minimal increased markings at the left lung base. There is no demonstrated pleural abnormality. Normal size heart. Normal mediastinum and sydney. Normal visualized pulmonary arteries. There is atherosclerotic calcification of the aortic arch with tortuosity. Normal visualized thoracic spine. Normal visualized ribs, clavicles, and shoulders. Surgical clips are seen in the lower cervical region. There is no demonstrated abnormality of the visualized soft tissue structures of the upper abdomen. RAD/CXR for Line Placement IMPRESSION: The tip of the right Vas-Cath is at the junction of the superior vena cava and right atrium. The remainder of the examination is essentially unchanged. Electronically Signed: Alcon Suarez MD at 10:32 EDT ,
[2021-10-13] MEDS: Calcium (Elemental) 500 MG Tablet PO ×2 (11:51→17:34)
[2021-10-13] MEDS: Allopurinol 300 MG Tablet PO (11:52)
[2021-10-13] MEDS: Metoprolol(XL)Succ 100 MG Tablet PO (11:52)
--- NOTE | 2021-10-13 12:02 | PN.RENAL_ITS ---
Subjective Subjective no new events Objective Data Objective Data Vital Signs: Vital Signs Temp Pulse Resp BP Pulse Ox 97.6 F L 103 H 16 91/63 96 10/13/21 11:00 10/13/21 11:52 10/13/21 11:00 10/13/21 11:52 10/13/21 11:00 Oxygen Delivery Method Room Air Weight: 88.6 kg Body Mass Index (BMI) 29.7 Intake & Output: Intake and Output for Last 24 Hours 10/11/21 10/12/21 10/13/21 23:59 23:59 23:59 Intake Total 420 / 420 800 / 920 120 / 120 Output Total 1000 / 1000 3620 / 3740 240 / 240 Balance -580 / -580 -2820 / -2820 -120 / -120 Lab / Micro Data Result Diagrams: 10/13/21 05:36 10/13/21 05:36 Labs: Laboratory Results - last 24 hr 10/10/21 14:10: Hep Bs Antigen Non-Reactive 10/13/21 05:36: WBC 2.9 L, RBC 3.41 L, Hgb 9.5 L, Hct 30.9 L, MCV 90.6, MCH 27.9, MCHC 30.7 L, RDW Std Deviation 68.6 H, RDW Coeff of Rafael 21.0 H, Plt Count 154, MPV 10.4, Immature Gran % (Auto) 1.700 H, Neut % (Auto) 77.5 H, Lymph % (Auto) 11.5 L, Kendall % (Auto) 8.0, Eos % (Auto) 0.3, Baso % (Auto) 1.0, Absolute Neuts (auto) 2.2, Absolute Lymphs (auto) 0.33 L, Nucleated RBC % 0.7, Diffe rential Comment SCANNED, Diff Path Review May foll, Polychromasia 1+, Hypochromasia 1+, Anisocytosis 2+, Microcytosis 1+, Ovalocytes 1+ 10/13/21 05:36: Sodium 137, Potassium 3.9, Chloride 102, Carbon Dioxide 27.0, Anion Gap 8, BUN 49 H, Creatinine 2.15 H, Estim Creat Clear Calc 31.37, Est GFR (MDRD) Af Amer 39 L, Est GFR (MDRD) Non-Af 33 L, BUN/Creatinine Ratio 22.8 H, Glucose 97, Calcium 6.8 L, Total Bilirubin 0.80, Direct Bilirubin 0.30, AST 4 L, ALT 9 L, Alkaline Phosphatase 47, Total Protein 6.7, Albumin 3.4, Globulin 3.3, TSH 1.45 10/13/21 05:36: PT 17.1 H, INR 1.5, APTT 43.1 H Radiography Diagnostic Testing: Radiology Impression Chest X-Ray 10/13/21 10:03 IMPRESSION: The tip of the right Vas-Cath is at the junction of the superior vena cava and right atrium. The remainder of the examination is essentially unchanged. Electronically Signed: Alcon Suarez MD at 10:32 EDT , Physical Exam Narrative General: Alert oriented x3 Cardio: S1, S2, rhythm irregular, rate controlled Respiratory: Clear anteriorly, diminished breath sounds posterior bases Abdomen: Distended and firm. However, there is no pain on palpation Extremities: +2 pitting edema of the lower extremities Assessment & Plan Assessment/Plan (1) ESRD (end stage renal disease): PLAN: -ESRD is due to cardiorenal syndrome. -Patient presented to the emergency room on 10/10/2021 with complaints of worsening edema, shortness of breath and weight gain of at least 20 pounds. -Patient has a known history of chronic kidney disease stage III-IV possibly from cardiorenal syndrome physiology (renal serologies were unremarkable in August 2021). -Patient is hypervolemic, and he has failed outpatient diuretic therapy. Chest x-ray showed persistent bilateral pulmonary infiltrates. -Above was discussed with patient and his that we recommend dialysis at this time to help assist with hypervolemia and volume control. -HD TTS schedule (2) Chronic kidney disease, stage 3b: PLAN: -Serum creatinine prior to this admission was 2.12 mg/dL on 09/07/2021. However, serum creatinine has increased to 3.28 mg/dL with marked volume overload. Current and prior serum creatinine likely overestimates true GFR because of volume overload. -I suspect that the true baseline renal function is worse than what the estimated GFR is. -As above, I do not think the patient will be able to handle volume overload with medical therapy. Dialysis has been started. (3) Heart failure with reduced ejection fraction: PLAN: -Echocardiogram from 09/10/2021 showed ejection fraction of 40%. The patient had moderate segmental systolic dysfunction with mildly dilated right ventricle and right ventricular systolic dysfunction. -We will remove fluid with dialysis. -Now that the patient is on dialysis, ARB or CHRIS inhibitor can be added if needed. (4) Hypocalcemia: PLAN: -Patient is to be on calcium supplements. Calcium level is better today. -Phosphorus level is acceptable. There is no need for phosphorus binder. -We will check PTH as outpatient at dialysis unit. (5) Myelofibrosis: PLAN: -Patient has history of myelofibrosis, chronic anemia and receives CITLALI outpatient. We will give CITLALI with HD as outpatient. (6) Paroxysmal atrial fibrillation: PLAN: -Patient has a history of atrial fibrillation/flutter and was planned for ablation next week. -The patient is on Eliquis. Oral anticoagulation is being held prior to tunneled dialysis catheter placement.
[2021-10-13] MEDS: Amiodarone 200 MG Tablet PO (12:27)
--- NOTE | 2021-10-13 15:26 | DS.PCM_ITS ---
Providers Date of Admission: 10/10/21 Date of Discharge: 10/13/21 Primary Care Physician: Dr. Diogenes Suarez, Consultations 10/10/21 12:05 Consult: General Surgery Routine Consulting Provider: Patricia Vincent Reason for Consult: needs dialysis catheter EMERGENT Consult: No Notified: Yes Date Notified: 10/10/21 Time Notified: 10:44 Method of Notification: Text Consult: Nephrology Routine Consulting Provider: Kanwal Williamson Reason for Consult: worsening CKd, needs dialysis EMERGENT Consult: No Notified: Yes Date Notified: 10/10/21 Time Notified: 10:43 Method of Notification: spoke to CONSTRUCTION SUPERVISOR/CARPENTER Reason For Visit: WORSENING CKD, NEEDS DIALYSIS, HEART FAILURE Diagnosis Discharge Diagnosis (1) ESRD (end stage renal disease): Status: Chronic Code(s): N18.6 - End stage renal disease (2) Heart failure with reduced ejection fraction: Status: Acute Code(s): I50.20 - Unspecified systolic (congestive) heart failure (3) Hypocalcemia: Status: Resolved Code(s): E83.51 - Hypocalcemia (4) Myelofibrosis: Status: Inactive Code(s): D75.81 - Myelofibrosis (5) Paroxysmal atrial fibrillation: Status: Chronic Code(s): I48.0 - Paroxysmal atrial fibrillation Medications at Discharge Home Medications allopurinol 300 mg PO DAILY 02/04/18 finasteride 5 mg PO QHS 02/04/18 gemfibrozil 600 mg PO DAILY 02/04/18 alfuzosin 10 mg PO QHS 04/21/20 fedratinib 200 mg PO QHS 04/21/20 levothyroxine 112 mcg tablet 300 mcg PO DAILY tab 08/13/20 fluticasone propionate 1 spray INTRANASAL BID PRN 08/13/21 amiodarone 200 mg PO DAILY 10/03/21 furosemide 80 mg PO DAILY 10/03/21 apixaban 2.5 mg PO BID 10/10/21 calcium carbonate 600 mg PO TID 10/10/21 polysaccharide iron complex [Ferrex 150] 150 mg PO QODAY 10/10/21 albumin, human 25 % 50 g IV X1 #50 ml 10/13/21 metoprolol tartrate 12.5 mg PO BID 30 Days #30 tab 10/13/21 Hospital Course Operations None Procedures - (tunneled dialysis catheter placement) Summary of Care Provided Minutes Spent on Discharge: 35 Hospital Course: 71-year-old male with past medical history of heart failure with reduced EF, EF 40% who comes in with progressive shortness of breath and worsening renal function. Patient was referred by his quality control lead to the ED. He was found to have ascites with fluid overload. Patient is unable to tolerate Lasix. His admitting creatinine was 3.28. Patient's acute kidney injury was felt to be secondary to cardiorenal disease. A temporary dialysis catheter was inserted. Nephrology was consulted. Patient was admitted to the progressive care unit and manage acute on chronic exacerbation of heart failure. He had hypocalcemia that was replaced. Patient had 3 dialysis treatments whilst in the hospital. Tunneled dialysis catheter was placed on 10/13/21. Patient had an outpatient dialysis chair for Wednesday?Wednesday?Wednesday. He also has outpatient planned paracentesis and GI follow-up Physical Exam Narrative Physical exam: General: Alert, Oriented x3, Cooperative, No apparent distress, Well developed HEENT: Atraumatic Oral: Moist Mucosa Neck: Supple Lungs: Clear to auscultation Cardiovascular: HS I+II, regular, no murmurs Abdomen: Ascites plus plus bowel Sounds Present, Soft, Non Tender Extremities: Bilateral leg edema +1 Weight / BMI Weight Weight: 88.6 kg Body Mass Index (BMI) 29.7 ABG / Lab / Microbiology Data Result Diagrams: 10/13/21 05:36 10/13/21 05:36 Laboratory: Laboratory Results - last 24 hr 10/10/21 14:10: Hep Bs Antigen Non-Reactive 10/13/21 05:36: WBC 2.9 L, RBC 3.41 L, Hgb 9.5 L, Hct 30.9 L, MCV 90.6, MCH 27.9, MCHC 30.7 L, RDW Std Deviation 68.6 H, RDW Coeff of Rafael 21.0 H, Plt Count 154, MPV 10.4, Immature Gran % (Auto) 1.700 H, Neut % (Auto) 77.5 H, Lymph % (Auto) 11.5 L, [place] % (Auto) 8.0, Eos % (Auto) 0.3, Baso % (Auto) 1.0, Absolute Neuts (auto) 2.2, Absolute Lymphs (auto) 0.33 L, Nucleated RBC % 0.7, Differential Comment SCANNED, Diff Path Review May foll, Polychromasia 1+, Hypochromasia 1+, Anisocytosis 2+, Microcytosis 1+, Ovalocytes 1+ 10/13/21 05:36: Sodium 137, Potassium 3.9, Chloride 102, Carbon Dioxide 27.0, Anion Gap 8, BUN 49 H, Creatinine 2.15 H, Estim Creat Clear Calc 31.37, Est GFR (MDRD) Af Amer 39 L, Est GFR (MDRD) Non-Af 33 L, BUN/Creatinine Ratio 22.8 H, Glucose 97, Calcium 6.8 L, Total Bilirubin 0.80, Direct Bilirubin 0.30, AST 4 L, ALT 9 L, Alkaline Phosphatase 47, Total Protein 6.7, Albumin 3.4, Globulin 3.3, TSH 1.45 10/13/21 05:36: PT 17.1 H, INR 1.5, APTT 43.1 H Radiography Diagnostic Testing: Radiology Impression Chest X-Ray 10/13/21 10:03 IMPRESSION: The tip of the right Vas-Cath is at the junction of the superior vena cava and right atrium. The remainder of the examination is essentially unchanged. Electronically Signed: Alcon Suarez MD at 10:32 EDT , D/C Instructions Discharge Diet: Renal Diet Meaningful Use Info Meaningful Use Diagnoses (Choose all that apply): None applicable Discharge Plan Admission Admit Date/Time: 10/10/21 10:42 Primary Reason for Your Visit: CAREY Attending Provider: Laquita Carmona Primary Care Provider: Diogenes Suarez Consulting Providers: Patricia Vincent ; Kanwal Williamson Instructions Additional Instructions / Restrictions: Take note of your dialysis days -Wednesday?Wednesday?Wednesday. Follow-up for paracentesis as well as follow-up appointment with Dr. Smith. Take note of your medications. Measure your blood pressure every day. Let your primary care doctor know if your blood pressure continues to be very low, <90mmHg. Discharge Orders/Prescriptions Prescriptions: New metoprolol tartrate 25 mg tablet 12.5 mg PO BID 30 Days Qty: 30 RF: 0 albumin, human 25 % 25 % parenteral solution 50 g IV X1 Qty: 50 RF: 0 Continued levothyroxine 112 mcg tablet 300 mcg PO DAILY RF: 0 gemfibrozil 600 MG tablet 600 mg PO DAILY RF: 0 allopurinol 300 MG tablet 300 mg PO DAILY RF: 0 finasteride 5 MG tablet 5 mg PO QHS RF: 0 alfuzosin 10 MG tablet extended release 24 hr 10 mg PO QHS RF: 0 fedratinib 100 MG capsule 200 mg PO QHS RF: 0 fluticasone propionate 50 mcg/actuation [place],Suspension 1 spray INTRANASAL BID PRN (Reason: ALLERGIES) RF: 0 furosemide 40 mg tablet 80 mg PO DAILY RF: 0 amiodarone 200 mg tablet 200 mg PO DAILY RF: 0 polysaccharide iron complex [Ferrex 150] 150 mg iron capsule 150 mg PO QODAY RF: 0 calcium carbonate 600 MG tablet 600 mg PO TID RF: 0 apixaban 2.5 mg tablet 2.5 mg PO BID RF: 0 Discontinued Retiocrit 0 mg transdermal FR RF: 0 metoprolol succinate 100 mg tablet extended release 24 hr 100 mg PO BID RF: 0 Referrals / Follow Up: Diogenes Suarez DO [Primary Care Provider] - 10/22/21 1:15 pm (Appointment is at the [facility] office. ) Genevieve Andrea NP, CONSTRUCTION SUPERVISOR/CARPENTER-C [Nurse Practitioner] - 11/18/21 1:45 pm Disposition Disposition (needs filled in before D/C Order can be placed): Home, Self Care Charges/Coding Visit Charges Inpatient E&M: 12511 Disch Hosp
--- NOTE | 2021-10-13 15:26 | PCM.DC ---
Discharge Instructions Diet Discharge Diet: Renal Diet Activity Discharge Activity: Return to Normal Activity Follow Up Care Test Results: Test results from this visit will be discussed in further detail at your follow-up appointment, if applicable. Discharge Plan Admission Admit Date/Time: 10/10/21 10:42 Primary Reason for Your Visit: CAREY Attending Provider: Laquita Carmona Primary Care Provider: Diogenes Suarez Consulting Providers: Patricia Vincent ; Kanwal Williamson Instructions Additional Instructions / Restrictions: Take note of your dialysis days -Wednesday?Wednesday?Wednesday. Follow-up for paracentesis as well as follow-up appointment with Dr. Smith. Take note of your medications. Measure your blood pressure every day. Let your primary care doctor know if your blood pressure continues to be very low, <90mmHg. Discharge Orders/Prescriptions Prescriptions: New metoprolol tartrate 25 mg tablet 12.5 mg PO BID 30 Days Qty: 30 RF: 0 Continued levothyroxine 112 mcg tablet 300 mcg PO DAILY RF: 0 gemfibrozil 600 MG tablet 600 mg PO DAILY RF: 0 allopurinol 300 MG tablet 300 mg PO DAILY RF: 0 finasteride 5 MG tablet 5 mg PO QHS RF: 0 alfuzosin 10 MG tablet extended release 24 hr 10 mg PO QHS RF: 0 fedratinib 100 MG capsule 200 mg PO QHS RF: 0 fluticasone propionate 50 mcg/actuation [place],Suspension 1 spray INTRANASAL BID PRN (Reason: ALLERGIES) RF: 0 furosemide 40 mg tablet 80 mg PO DAILY RF: 0 amiodarone 200 mg tablet 200 mg PO DAILY RF: 0 polysaccharide iron complex [Ferrex 150] 150 mg iron capsule 150 mg PO QODAY RF: 0 calcium carbonate 600 MG tablet 600 mg PO TID RF: 0 apixaban 2.5 mg tablet 2.5 mg PO BID RF: 0 Discontinued Retiocrit 0 mg transdermal FR RF: 0 metoprolol succinate 100 mg tablet extended release 24 hr 100 mg PO BID RF: 0 Referrals / Follow Up: Frankie Smith DO [STAFF PHYSICIAN] - Within 1 Week Diogenes Suarez DO [Primary Care Provider] - In 1 Week Disposition Disposition (needs filled in before D/C Order can be placed): Home, Self Care
[2021-10-13 16:20] LABS: LDH 224 U/L (87-241)
[2021-10-14 14:00] LABS: Pathologist Review Reviewed
[2021-10-14 14:10] LABS: Pathologist Review Reviewed
[2021-10-14 14:19] LABS: Pathologist Review Reviewed
--- NOTE | 2021-10-16 10:44 | CASEMGMT ---
This ROM[facility]N LANDRY received call from pt, asking about why his retiocrip injection was discontinued on his med list at discharge. Pt states he is on this for his myelofibrosis and gets it weekly thru [facility] and it's ordered by Dr. Christiansen, paola/onc. Dr. Carmona updated on all and she called pt back at this time to discuss with pt and to advise to continue with his injections as previously ordered. SStaten ROMÁN LANDRY
== END 2021-10-13 20:10 | disposition home or self-care (01) | DRG 291 ==
LOC: ED 10:59 → PCU 11:09
PROVIDERS: Anesthesiology; Internal Medicine Nephrology; Nurse Practitioner; Nurse Practitioner Adult Health; Surgery; Admitting Provider Student in an Organized Health Care Education/Training Program; Emergency Provider Emergency Medicine; PCP Preventive Medicine Occupational Medicine; Visit Provider Internal Medicine
PROC: 02HV33Z Insertion of Infusion Device into Superior Vena Cava, Percutaneous Approach (ICD-10-PCS; principal; 2021-10-13 09:15)
DX: I13.2 Hypertensive heart and chronic kidney disease with heart failure and with stage 5 chronic kidney disease, or end stage renal disease (principal); N18.6 End stage renal disease; I50.23 Acute on chronic systolic (congestive) heart failure; N17.9 Acute kidney failure, unspecified; D75.81 Myelofibrosis; R18.8 Other ascites; E83.51 Hypocalcemia; Z79.01 Long term (current) use of anticoagulants; Z99.2 Dependence on renal dialysis; I48.0 Paroxysmal atrial fibrillation; E87.70 Fluid overload, unspecified; E03.9 Hypothyroidism, unspecified; E78.5 Hyperlipidemia, unspecified; E87.5 Hyperkalemia; M10.9 Gout, unspecified; I44.0 Atrioventricular block, first degree; I25.10 Atherosclerotic heart disease of native coronary artery without angina pectoris; N40.0 Benign prostatic hyperplasia without lower urinary tract symptoms; Z87.891 Personal history of nicotine dependence
CPT/HCPCS: 36415; 71045; 77001; 80048; 80076; 83615; 83880; 84100; 84443; 85025; 85610; 85730; 87340; 90937; 93005; 97161; 97166; 97802; 97803; 99283; J7030; A4216; C1750; G0257; J0610; J1940; J2405

== ENCOUNTER 2021-10-10 12:48 | Outpatient (CLI) | payer MEDICARE, SELFPAY ==
[2021-10-10 06:40] VITALS: BP 93/66; PULSE 109; RESP 16; TEMP 36.7; O2SAT 99; BMI 31.5
[2021-10-10 06:46] LABS: Hematocrit 31.9 % (40-54); Hemoglobin 9.5 g/dL (13.0-16.5); Mean Corp Hgb Conc 29.8 g/dL (32-36); Mean Corpuscular Volume 94.1 fL (80-94); Mean Platelet Vol. 10.9 fl (6.2-12.0); POSITIVE MORPHOLOGY YES; Platelet Count 144 K/mm3 (150-450); RBC Distribution Width SD 74.5 fl (35.1-43.9); Red Blood Count 3.39 M/mm3 (4.6-6.2); White Blood Count 2.9 K/mm3 (4.4-11.0)
[2021-10-10 06:48] LABS: Scan Indicated on CBC? Y/N YES- FLAGS NOTED
[2021-10-10 07:12] LABS: RBC Distribution Width CV 21.5 % (11.6-14.6)
[2021-10-10 07:13] LABS: Thyroid Stim Hormone (TSH) 1.94 uIU/mL (0.358-3.74)
[2021-10-10 07:36] LABS: International Normalized Ratio 1.5; Prothrombin Time (Protime)PT. 17.2 SECONDS (11.7-14.9)
[2021-10-10 07:37] LABS: Partial Thromboplast Time 38.6 Seconds (24.1-36.2)
== END 2021-10-10 23:59 | disposition home or self-care (01) ==
LOC: PAT 10-28 12:48
PROVIDERS: Anesthesiology; PCP Preventive Medicine Occupational Medicine; Referring Provider Urology; Visit Provider Urology
DX: Z01.818 Encounter for other preprocedural examination (principal)
CPT/HCPCS: 84443; 85027; 85610; 85730; J7120

== ENCOUNTER 2021-10-14 12:15 | Outpatient (CLI) | payer MEDICARE, SELFPAY ==
--- NOTE | 2021-10-14 12:19 | US_ITS ---
PROCEDURE: Ultrasound guided paracentesis. DATE OF EXAMINATION: 10/14/2021. INDICATION: Male, 71 years old. Ascites. PHYSICIAN: Alcon Suarez M.D. TECHNIQUE: The risks, benefits, and alternatives to the procedure were explained to the patient. The specific risks of bleeding, infection, and damage to bowel were detailed and accepted. Witnessed informed consent was obtained. The abdomen was ultrasonographically surveyed. An appropriate pocket of fluid was identified at the left lower quadrant. The skin were cleaned and prepped in the usual sterile fashion. Using ultrasound guidance, the peritoneal cavity was accessed with a 5-[place] paracentesis needle/catheter system. The trocar was removed. A total of 3770 ml of blood tinge fluid were removed from the peritoneal cavity. A 120 mL sample was sent to the laboratory for analysis. The catheter was removed and a sterile dressing was applied. The procedure was well tolerated. US/Paracentesis with US IMPRESSION: Ultrasound guided paracentesis. Electronically Signed: Aclon Suarez MD at 13:31 EDT ,
[2021-10-14] MEDS: Lidocaine 2% (20 ml mdv) 20 ML Vial INFILT (12:42)
--- NOTE | 2021-10-14 12:50 | FLU_PTH ---
PATIENT: ALTON BROWN LOC: [facility]#:[id number] AGE/SX: 71/M ROOM: RE10/14/[address]: Dr. Laquita Carmona MD : 1950 BED: DIS: 10/14/2021 SPEC #: [id number] RECD: 10/14/21 13:16 STATUS: ROSALBA RONba #: [id number] ROBSON: 10/14/21 12:[address]: Laquita Carmona DEPT: CYTOLOGY RECD BY: Malathi Haro ENTERED: 10/14/21 13:33 SP TYPE: Fluid OTHR DR: Dr. Diogenes Suarze, DO Tissues: PARACENTESIS FLUID Procedures: Special Stain Group II Surgery Specimen Level IV Cytospin Fluid HEADER OPERATION: Paracentesis PRE-OP DIAGNOSIS: Ascites TISSUE SUBMITTED: Paracentesis fluid for cytology DIAGNOSIS CYTOLOGY Paracentesis fluid for cytology (cytospin and cell block): Negative for malignant cells. Bloody specimen. :cedrick 10/15/2021 CYTOLOGY STUDY Slides are reviewed. CYTOLOGY GROSS Received is 100 ml of red cloudy fluid labeled with the patient's name and and designated per the requisition as paracentesis. Submitted for cytology preparation including cell block. / cedrick 10/14/2021 TC:5 CPT: 76574, 90019
[2021-10-14 13:49] LABS: Body Fluid Mononuclear WBC # 0.007 10^3/uL; Body Fluid Mononuclear WBC % 63.6 %; Body Fluid Polynuclear WBC # 0.004 10^3/uL; Body Fluid Polynuclear WBC % 36.4 %; Body Fluid Total Cells Counted 0.012 10^3/ul; Red Cell Count/Body Fluid 0.045 10^6/ul; White Blood Count/Body Fluid 0.011 10^3/uL
[2021-10-14 13:51] LABS: Appearance/Body Fluid SL CLDY; Auto B Fluid Analyzer BKGD Ct COUNTS W/IN LIMITS (W/IN LIMITS); Color/Body Fluid RED; Source- Body Fluid OTHER
[2021-10-14 13:52] VITALS: BP 100/68; BP 100/75; BP 108/76; PULSE 106; PULSE 108; PULSE 109; RESP 16; TEMP 36.1; O2SAT 100; O2SAT 98
[2021-10-14 14:03] LABS: LDH,Body Fluid 140 Units/l (Not Establ.); Protein, Body Fluid 4.4 g/dL (Not Establ.)
[2021-10-14 15:20] LABS: Lymphocytes 70 %; Neutrophil (Segs) 30 %
[2021-10-14 15:21] LABS: Body Fluid QC Type(s) BF2Q
[2021-10-15 12:51] LABS: Pathologist Comment/Body Fluid Reviewed
== END 2021-10-14 23:59 | disposition home or self-care (01) ==
PROVIDERS: PCP Preventive Medicine Occupational Medicine; Referring Provider Internal Medicine; Visit Provider Internal Medicine
DX: R18.8 Other ascites (principal)
CPT/HCPCS: 49083; 83615; 84157; 87070; 87075; 87205; 88108; 88305; 88313; 89050

== ENCOUNTER 2021-10-27 11:33 | Outpatient (CLI) | payer MEDICARE, SELFPAY ==
--- NOTE | 2021-10-27 11:46 | US_ITS ---
PROCEDURE: Ultrasound guided paracentesis. DATE OF EXAMINATION: 10/27/2021. INDICATION: Male, 71 years old. Ascites. PHYSICIAN: Alcon Suarez M.D. TECHNIQUE: The risks, benefits, and alternatives to the procedure were explained to the patient. The specific risks of bleeding, infection, and damage to bowel were detailed and accepted. Witnessed informed consent was obtained. The abdomen was ultrasonographically surveyed. An appropriate pocket of fluid was identified at the right lower quadrant. The skin were cleaned and prepped in the usual sterile fashion. Using ultrasound guidance, the peritoneal cavity was accessed with a 5-Emirati paracentesis needle/catheter system. The trocar was removed. A total of 1950 ml of blood-tinged fluid were removed from the peritoneal cavity. The catheter was removed and a sterile dressing was applied. The procedure was well tolerated. US/Paracentesis with US IMPRESSION: Ultrasound guided paracentesis. Electronically Signed: Alcon Suarez MD at 12:55 EDT ,
[2021-10-27] MEDS: Lidocaine 2% (20 ml mdv) 20 ML Vial INFILT (12:13)
[2021-10-27 12:40] VITALS: BP 109/77; BP 111/75; BP 120/85; PULSE 118; PULSE 119; PULSE 120; RESP 18; TEMP 36.6; O2SAT 95; O2SAT 96
== END 2021-10-27 23:59 | disposition home or self-care (01) ==
LOC: US 11:34
PROVIDERS: PCP Preventive Medicine Occupational Medicine; Referring Provider Internal Medicine; Visit Provider Internal Medicine
DX: R18.8 Other ascites (principal)
CPT/HCPCS: 49083; A4216

== ENCOUNTER → 2021-11-11 | Outpatient (CLI) | payer MEDICARE, SELFPAY ==
--- NOTE | 2021-11-11 10:16 | US_ITS ---
PROCEDURE: Ultrasound guided paracentesis. DATE OF EXAMINATION: 11/11/2021. INDICATION: Male, 71 years old. Ascites. PHYSICIAN: Rogelio Wang DO. TECHNIQUE: The risks, benefits, and alternatives to the procedure were explained to the patient. The specific risks of bleeding, infection, and damage to bowel were detailed and accepted. Witnessed informed consent was obtained. The abdomen was ultrasonographically surveyed. An appropriate pocket of fluid was identified at the right lower quadrant. The skin were cleaned and prepped in the usual sterile fashion. Under direct visualization utilizing ultrasound guidance, the peritoneal cavity was accessed with a 5-[place] paracentesis needle/catheter system. The trocar was removed. A total of 1300 ml of clear yellow ascites fluid were removed from the peritoneal cavity. The catheter was removed and a sterile dressing was applied. The procedure was well tolerated. US/Paracentesis with US IMPRESSION: Ultrasound guided therapeutic paracentesis. Electronically Signed: Rogelio Wang, at 13:07 EDT ,
[2021-11-11 10:17] LABS: Platelet Count 203 K/mm3 (150-450)
[2021-11-11 10:27] LABS: International Normalized Ratio 1.4; Prothrombin Time (Protime)PT. 16.7 SECONDS (11.7-14.9)
[2021-11-11 10:28] LABS: Partial Thromboplast Time 42.1 Seconds (24.1-36.2)
[2021-11-11 11:27] VITALS: BP 100/74; BP 104/69; BP 104/70; BP 99/70; PULSE 105; PULSE 106; PULSE 108; RESP 16; TEMP 36.7; O2SAT 96; O2SAT 98
[2021-11-11] MEDS: Lidocaine 2% (20 ml mdv) 20 ML Vial INFILT (11:40)
--- NOTE | 2021-11-12 10:56 | CASEMGMT ---
ROMÁN LANDRY Out-patient paracentesis f/u: Call placed to pt to offer support and to answer any questions pt may have. Pt states things have been going well. He states he is managing things well and has all needed prescriptions. He states that he thinks he has an upcoming appt w/Dr Smith on 11/18, but is unsure and does not know what time. MICHAEL CM called Dr Gambino office. Pt has appt w/ENGINEERING LECTURER Genevieve Andrea on 11/18 @ 1:45 PM. Call placed back to pt and he was notified of same and made aware to arrive 10-15 min early to complete paperwork. He voices appreciation. Pt denies having any further concerns or questions at this time. Next paracentesis is scheduled for 11/25 and pt is aware of same. Arsenio BOWMANN [facility]N LANDRY
== END | disposition home or self-care (01) ==
PROVIDERS: PCP Preventive Medicine Occupational Medicine; Referring Provider Internal Medicine Gastroenterology; Visit Provider Internal Medicine Gastroenterology
DX: R18.8 Other ascites (principal)
CPT/HCPCS: 36415; 49083; 85049; 85610; 85730

== ENCOUNTER → 2021-11-25 | Outpatient (CLI) | payer MEDICARE, SELFPAY ==
--- NOTE | 2021-11-25 09:47 | US_ITS ---
STUDY: ABDOMINAL ULTRASOUND - 4 quadrants. REASON FOR VISIT: Male, 71 years old ASCITES TECHNIQUE: Ultrasound evaluation of the 4 quadrants was performed with real-time and static damon-scale imaging. TECHNICAL QUALITY: Adequate. COMPARISON: None. FINDINGS: Ultrasound of the 4 quadrants was performed for assessment of ascites. No significant ascites is seen. Incidental note is made of hepatosplenomegaly with hyperechoic nodules within the spleen. US/Abdomen Limited IMPRESSION: No evidence of ascites at this time. Electronically Signed: Alcon Suarez MD at 9:47 EDT ,
[2021-11-25 10:10] LABS: ALB/GLOB Ratio 1.1 RATIO (0.9-2.4); AST(SGOT) 6 U/L (15-37); Alanine Aminotransfer ALT/SGPT 13 U/L (16-61); Albumin, Serum 3.9 g/dL (3.2-5.0); Alkaline Phosphatase 55 U/L (45-117); Anion Gap 6 (5-15); BUN 51 mg/dL (7-18); BUN/Creat Ratio 21.2 RATIO (10-20); CRP 6.85 mg/L (0.0-3.0); Calcium,Total 6.9 mg/dL (8.5-10.1); Chloride 102 mmol/L (98-107); EST Glomerular Filtration Rate 29 mL/min (>60); Est Glom Filt Rate - Afr Amer 35 mL/min (>60); Ferritin 206 ng/mL (26-388); Globulin 3.5 g/dL (2.2-4.2); Glucose 101 mg/dL (74-106); LDH 179 U/L (87-241); Potassium 4.1 mmol/L (3.5-5.1); Protein, Total 7.4 g/dL (6.4-8.2); Sodium Level 138 mmol/L (136-145)
[2021-11-25 10:17] LABS: Absolute Lymphocyte Count 0.29 X10^3/uL (0.83-4.51); Absolute Neutrophil Count 1.6 X10^3/uL (2.0-7.7); Basophil# 0.03 X10^3/uL; Basophil% 1.4 % (0-1); Eosinophil# 0.01 X10^3/uL; Eosinophils% 0.5 % (0-5); Hematocrit 30.3 % (40-54); Hemoglobin 9.2 g/dL (13.0-16.5); International Normalized Ratio 1.4; Lymphocyte # 0.29 X10^3/ul (0.83-4.51); Lymphocyte % 13.9 % (19-41); Mean Corp Hgb Conc 30.4 g/dL (32-36); Mean Corpuscular Volume 92.4 fL (80-94); Mean Platelet Vol. 10.5 fl (6.2-12.0); Monocyte# 0.13 X10^3/uL; Monocyte% 6.2 % (0-10); NRBC Flagged by Analyzer 0 % (0-5); Neutrophil # 1.62 X10^3/uL (2.7-7.7); Neutrophil % 77.5 % (47-70); POSITIVE DIFFERENTIAL YES; POSITIVE MORPHOLOGY YES; Platelet Count 192 K/mm3 (150-450); Prothrombin Time (Protime)PT. 17.2 SECONDS (11.7-14.9); RBC Distribution Width SD 60.4 fl (35.1-43.9); Red Blood Count 3.28 M/mm3 (4.6-6.2); White Blood Count 2.1 K/mm3 (4.4-11.0)
[2021-11-25 10:19] LABS: Erythrocyte Sedimentation Rate 5 mm/hr (0-20)
[2021-11-25 10:20] LABS: Differential Indicated SCAN CRITERIA MET
[2021-11-25 11:03] LABS: HIV - WCH Non-Reactive (Nonreactive)
[2021-11-26 14:11] LABS: Anti-Centromere B Ab <0.2 AI (0.0-0.9); Anti-Chromatin <0.2 AI (0.0-0.9); Anti-Jo <0.2 AI (0.0-0.9); Anti-Scleroderma-70 AB <0.2 AI (0.0-0.9); RNP Ab <0.2 AI (0.0-0.9); SJOGREN'S Anti-SS-A test < 0.2 AI (0.0-0.9); SJOGREN'S Anti-SS-B test < 0.2 AI (0.0-0.9); Smith Ab <0.2 AI (0.0-0.9)
[2021-11-26 17:05] LABS: Anti-Mitochondrial AB <20.0 Units (0.0-20.0); Anti-dsDNA Ab <1 IU/mL (0-9)
[2021-11-28 09:19] LABS: Pathologist Review Reviewed
[2021-11-28 17:07] LABS: Angiotensin Convert Enzyme 55 U/L (14-82); Ceruloplasmin 27.5 mg/dL (16.0-31.0); Cytoplasmic Ab (C-ANCA) <1:20 titer (Neg:<1:20); HEPATITIS B SURFACE AG Confirm. indicated (Negative); Hep C Antibodies 0.1 s/co ratio (0.0-0.9); Hepatitis A IgM Antibody Negative (Negative); Hepatitis B Core AB IgM Negative (Negative)
[2021-11-28 18:00] LABS: Anti-Smooth Muscle ABS 27 Units (0-19); Copper, Serum or Plasma 114 ug/dL (69-132); Haptoglobin 27 mg/dL (32-363); Perinuclear Ab (P-ANCA) <1:20 titer (Neg:<1:20)
== END | disposition home or self-care (01) ==
PROVIDERS: Nurse Practitioner Adult Health; PCP Preventive Medicine Occupational Medicine; Referring Provider Internal Medicine Gastroenterology; Visit Provider Internal Medicine Gastroenterology
DX: R18.8 Other ascites (principal); D64.9 Anemia, unspecified; R16.2 Hepatomegaly with splenomegaly, not elsewhere classified
CPT/HCPCS: 36415; 76705; 80053; 80074; 82140; 82164; 82390; 82525; 82728; 83010; 83516; 83615; 85025; 85610; 85652; 86140; 86225; 86235; 86256; 86703

== ENCOUNTER → 2021-12-08 | Outpatient (CLI) | payer MEDICARE, SELFPAY ==
--- NOTE | 2021-12-08 12:12 | US_ITS ---
INDICATION: ASCITES EXAMINATION: Ultrasound US Abdomen Limited (quadrant) TECHNIQUE: Ultrasound evaluation of the 4 quadrants was performed with real-time and static grayscale imaging.. COMPARISON: Abdomen ultrasound from 11/25/2021. FINDINGS: All 4 quadrants of the abdomen were assessed for ascites with ultrasound. No significant ascites is seen. Redemonstration of patient''s known hepatosplenomegaly with multiple large hypoechoic splenic masses. US/Abdomen Limited IMPRESSION: No significant ascites. Electronically Signed: Rogelio Wang, at 8:24 EDT ,
== END | disposition home or self-care (01) ==
PROVIDERS: PCP Preventive Medicine Occupational Medicine; Referring Provider Internal Medicine Gastroenterology; Visit Provider Internal Medicine Gastroenterology
DX: R18.8 Other ascites (principal)
CPT/HCPCS: 76705

== ENCOUNTER → 2021-12-09 | Outpatient (CLI) | payer MEDICARE, SELFPAY ==
--- NOTE | 2021-12-09 08:00 | US_ITS ---
STUDY: ABDOMINAL ULTRASOUND - RIGHT UPPER QUADRANT REASON FOR VISIT: Male, 71 years old. ABDOMEN PAIN liver eval TECHNIQUE: Ultrasound evaluation of the right upper quadrant was performed with real-time and static damon-scale imaging. TECHNICAL QUALITY: Adequate. COMPARISON: None. FINDINGS: Liver: The liver has a size in centimeters of 23.5 There is normal echogenicity of the liver. The bile ducts are within normal limits. There is hepatic color flow. The direction of portal flow is hepatopetal. There is no demonstrated mass lesion. Gallbladder: Normal distended gallbladder. The gallbladder wall measures 2.2 mm. There is a negative sonographic Mancilla''s sign. There is no pericholecystic fluid. There is a 4.8 mm gallbladder polyps. Common Bile Duct (C.B.D.): The common bile duct measures ( in mm): 6.5 Pancreas: Normal size of the head, body of the pancreas. There is normal echogenicity of the pancreas. There is no demonstrated pancreatic mass or cyst. Right Kidney: Normal size of the right kidney. The right kidney measures 12.2 cm. . Normal renal cortex. There is no demonstrated renal mass or cyst. There is no right hydronephrosis. Aorta: It is not visualized. There is too much overlying bowel gas. . US/Abdomen Limited IMPRESSION: Liver is enlarged. There is either an adherent non mobile gallstone of the gallbladder vs a gallbladder polyp. Note: Renal size measurements and size measurements of other organs etc may vary depending on modality and separator operator dependent variations in measurements. (i.e. Measuring a kidney on an US does not correlate with an exact same measurement on a CT.) Electronically Signed: Pj Forbes MD at 20:41 EDT ,
== END | disposition home or self-care (01) ==
PROVIDERS: PCP Preventive Medicine Occupational Medicine; Visit Provider Nurse Practitioner Adult Health
DX: R18.8 Other ascites (principal); D64.9 Anemia, unspecified; R16.2 Hepatomegaly with splenomegaly, not elsewhere classified
CPT/HCPCS: 76705

== ENCOUNTER → 2021-12-25 | Outpatient (CLI) | payer MEDICARE, SELFPAY ==
[2021-12-25] VITALS (10 sets, daily range): BP systolic 78–119; BP diastolic 50–83; PULSE 78–130; RESP 10–18; TEMP 36.6; O2SAT 89–100; BMI 26.9
--- NOTE | 2021-12-25 07:51 | CT_ITS ---
PROCEDURE: CT DIRECTED CORE LIVER BIOPSY INDICATION: Male, 71 years old. Ascites, HSM, elevated ASMA PHYSICIAN: Dr. ZAIRA Benjamin CONSENT: Written informed consent was obtained having explained the risks, benefits and alternatives in detail with the patient who accepted the risks and agreed to proceed. Laboratory review and clinical assessment was performed. CONSCIOUS SEDATION PROTOCOL: The Drugs used were: 2 mg Versed, IV., and 50 mcg Fentanyl, IV. The sedation time was: 15 minutes. Conscious sedation was started at 9:16 AM and terminated at 9:31 AM The conscious sedation protocol was independently monitored. RADIATION DOSAGE (If Supplied By Facility): CTDIvol = ( 22 ) mGy, DLP = ( 526.76 ) mGycm Individualized dose optimization techniques were used for this CT. TECHNIQUE: Using CT image guidance with image documentation, a suitable location in the right lobe of the liver was identified. Using an anterior approach, puncture of the liver was uneventful with an 18-gauge core needle system. 3, 18-gauge core samples were obtained, and submitted in formalin to the pathologist for further assessment. Followup CT scan revealed no distinct sequelae. CT/Biopsy/Inj or Needle Placement IMPRESSION: 1. CT directed core needle biopsy of the liver, using CT image guidance with image documentation as described. 2. Conscious Sedation protocol utilized with independent monitoring. Electronically Signed: Alcon Suarez MD at 9:50 EDT ,
[2021-12-25 08:10] LABS: Platelet Count 183 K/mm3 (150-450)
[2021-12-25 08:36] LABS: International Normalized Ratio 1.3; Prothrombin Time (Protime)PT. 16.2 SECONDS (11.7-14.9)
[2021-12-25 08:37] LABS: Partial Thromboplast Time 38.7 Seconds (24.1-36.2)
[2021-12-25] MEDS: 0.9% Normal Saline 250 ML IV.SOLN. (09:13)
[2021-12-25] MEDS: Lidocaine 2% (20 ml mdv) 20 ML Vial INFILT (09:13)
[2021-12-25] MEDS: Midazolam 2 MG/2 ML Syringe IV (09:13)
[2021-12-25] MEDS: fentaNYL 100 MCG/2 ML Ampul IV (09:14)
[2021-12-25] MEDS: 0.9% Saline Lock 10 ML Syringe IV (09:15)
--- NOTE | 2021-12-25 09:30 | LIVB_PTH ---
PATIENT: ALTON BROWN LOC: CT U#:[id number] AGE/SX: 71/M ROOM: RE12/25/[address]: ALLISON Cabello : 1950 BED: DIS: 12/25/2021 SPEC #: [id number] RECD: 12/25/21 09:48 STATUS: ROSALBA RENba #: [id number] ROBSON: 12/25/21 09:[address]: Genevieve Andrea NP DEPT: SURGICAL PATHOLOGY RECD BY: Natalee Das ENTERED: 12/25/21 10:19 SP TYPE: LIVER BX OTHR DR: Dr. Diogenes Suarez DO Tissues: Liver, NOS Procedures: PAS with Diastase (control) Trichrome (control) Special Stain Group II PAS Stain (control) Surgery Specimen Level V Retic (control) Iron Stain (control) HEADER OPERATION: CT-guided liver biopsy PRE-OP DIAGNOSIS: Hepatomegaly TISSUE SUBMITTED: Right lobe of liver 18-gauge core x3 MICROSCOPIC DIAGNOSIS Right lobe of liver, CT-guided core biopsy: Liver parenchymal tissue with changes consistent with extramedullry hematopoiesis and mild portal chronic inflammation. See microscopic description and comment. KASH:cedrick 12/26/2021 COMMENT Correlation with clinical, radiologic findings, laboratory findings and appropriate follow up are necessary. As per EMR, the patient has history of myelofibrosis. 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 Case has been reviewed in consultation with Dr. Venegas who concurs with the above diagnosis. IDC:AM MICROSCOPIC DESCRIPTION Slides are reviewed. The specimen shows preserved lobular architecture. Hepatocytes show mild reactive changes and cholestasis. Dilated sinusoids are also noted and shows changes consistent with extramedullary hematopoiesis (erythroid cells, myeloid cells and a few megakaryocytes). Portal area also shows mild portal chronic inflammation. Iron stain shows increased iron deposition in the Kupffer cells. Trichrome stain shows minimal increase of portal and periportal fibrosis. Reticulin stain is unremarkable. PAS stain with and without diastase do not show any abnormal accumulation of protein. All stains are performed with appropriate matched controls. GROSS DESCRIPTION Received in fixative is one container labeled with the patient's name and designated liver biopsy. The specimen consists of three irregular fragments of fried soft tissue measuring 2 cm in length and 0.1 cm in diameter. The specimen is totally submitted in one cassette. / SJ:cedrick 12/25/2021 TC:5 CPT: 23130, 16268 x5
== END | disposition home or self-care (01) ==
LOC: CT 07:51
PROVIDERS: PCP Preventive Medicine Occupational Medicine; Referring Provider Nurse Practitioner Adult Health; Visit Provider Nurse Practitioner Adult Health
DX: K73.8 Other chronic hepatitis, not elsewhere classified (principal)
CPT/HCPCS: 47000; 36415; 77012; 85049; 85610; 85730; 88307; 88313; 99156; J7050; A4216

== ENCOUNTER → 2023-06-24 | Outpatient (CLI) | payer MEDICARE, SELFPAY ==
--- NOTE | 2023-06-24 12:51 | ECHOD_ITS ---
Reason For Study: DYSPNEA Procedure This was a 2D Doppler, Color Flow transthoracic echocardiogram. Exam performed in department. Left Ventricle Normal LV size. Moderate concentric left ventricular hypertrophy. Left ventricular systolic function is normal. The estimated ejection fraction is 50 %. No regional wall motion abnormalities noted. Right Ventricle Normal RV size. Normal systolic function. Atria Normal left atrium. Normal right atrium. Mitral Valve There is mild to moderate mitral annular calcification. Aortic Valve Trisinus/trileaflet aortic valve. Mild focal aortic valve calcification. Mild (1+) eccentric aortic valve insufficiency. Great Vessels Normal aortic root. The pulmonary artery is normal size. Normal inferior vena cava. Pericardium/Pleural No pericardial effusion. MMode/2D Measurements & Calculations LVIDd: 5.9 cm IVSd: 1.4 cm Ao root diam: 4.3 cm LVIDs: 4.1 cm LVPWd: 1.6 cm RVDd: 4.6 cm FS: 29.4 % LAV(MOD-bp): 73.1 ml SV(MOD-sp4): 67.1 ml LVAd ap4: 38.1 cm2 LAV(MOD-bp) Indexed: 37.2 ml/m2 LVLd ap4: 8.7 cm LAV(MOD-sp2): 76.4 ml EDV(MOD-sp4): 138.4 ml LAV(MOD-sp4): 67.1 ml EDV(sp4-el): 142.3 ml LVAs ap4: 25.1 cm2 LVLs ap4: 7.6 cm ESV(MOD-sp4): 71.3 ml ESV(sp4-el): 70.2 ml EF(MOD-sp4): 48.5 % EF(sp4-el): 50.7 % SV(sp4-el): 72.1 ml LA dimension(2D): 5.0 cm LA A4 area: 22.4 cm2 TAPSE: 2.6 cm RA A4 area: 28.5 cm2 Time Measurements MV dec time: 0.20 sec Doppler Measurements & Calculations MV E max lars: 100.0 cm/sec Lat Peak E' Lars: 12.2 cm/sec Med Peak E' Lars: 9.0 cm/sec MV A max lars: 99.0 cm/sec E/E' lat: 8.2 E/E' med: 11.1 MV E/A: 1.0 MV V2 max: 110.7 cm/sec Ao V2 max: 180.7 cm/sec MV max P.9 mmHg MV dec slope: 501.1 cm/sec2 Ao max P.1 mmHg MV V2 mean: 72.9 cm/sec Ao V2 mean: 105.8 cm/sec MV mean P.5 mmHg Ao mean P.7 mmHg MV V2 VTI: 44.7 cm Ao V2 VTI: 40.1 cm AV (velocity ratio): 1.1 AI max lars: 383.2 cm/sec LV V1 max: 152.5 cm/sec PA V2 max: 90.2 cm/sec AI max P.7 mmHg LV V1 max P.3 mmHg PA V2 mean: 65.6 cm/sec AI dec slope: 180.0 cm/sec2 LV V1 mean P.0 mmHg AI P1/2t: 623.4 msec LV V1 mean: 104.2 cm/sec LV V1 VTI: 42.8 cm ECHO/Echo Complete Interpretation Summary Normal LV size. Moderate concentric left ventricular hypertrophy. The estimated ejection fraction is 50 %. Left ventricular systolic function is normal. Ordering Physician: Jacquie Vargas Referring Physician: Jacquie Vargas Performed By: Marian Degroot RCS
== END | disposition home or self-care (01) ==
LOC: CVS 12:49
PROVIDERS: PCP Preventive Medicine Occupational Medicine; Referring Provider Nurse Practitioner Gerontology; Visit Provider Nurse Practitioner Gerontology
DX: I48.0 Paroxysmal atrial fibrillation (principal); I50.20 Unspecified systolic (congestive) heart failure
CPT/HCPCS: 93306

== ENCOUNTER 2024-02-26 17:34 | Emergency (ER) | payer MEDICARE, SELFPAY ==
[2024-02-26 17:35] VITALS: BP 147/87; PULSE 87; RESP 16; TEMP 37.1; O2SAT 98; BMI 26.7
--- NOTE | 2024-02-26 17:59 | EX.ED.GUMALE ---
HPI History of Present Illness Chief Complaint: Complaint Informant: patient Narrative Narrative: Patient is a 73-year-old male with history of BPH and renal failure (previously was on dialysis but is no longer) presenting from home with worsening lower abdominal pain and discomfort. Patient states it feels like when her bladder is really full but he cannot pee. States his symptoms started last night. He did take some Tylenol last night with some improvement of the pain. He states he has been urinating but is not sure if he is emptying his bladder fully. Denies any pain when he actually urinates or blood in his urine. Denies any fever or chills. Denies any nausea or vomiting. Does complain of suprapubic pain but denies any other pain or discomfort. Denies any change in his bowel movements. Has seen Dr. Baxter in the past. Does not feel like his abdomen is any more distended than normal. Is on Eliquis long-term for atrial fibrillation. [facility] Medical History Longstanding persistent atrial fibrillation Cirrhosis Enlarged liver Wears glasses Bruises easily History of renal dialysis Paroxysmal atrial flutter Portal venous hypertension Arthritis Gout Bladder disease Restless legs Injury of back Dietary restriction Gastric reflux Former smoker Shortness of breath on exertion History of edema Urinary retention Chronic kidney disease, stage 3b Hypocalcemia Mild dehydration Acute renal failure History of COVID-19 Right inguinal hernia Paroxysmal atrial fibrillation Chronic diastolic (congestive) heart failure Hypothyroidism Neutropenic fever Myeloproliferative neoplasm Splenomegaly Pancytopenia Anemia Myelofibrosis Thrombocytopenia Hyperlipidemia Leukopenia Essential thrombocytosis Home Medications ?Medication ?Instructions ?Recorded ?Last Taken ?Type allopurinol 300 mg tablet 300 mg PO DAILY gout 02/04/18 12/24/21 10:00 History finasteride 5 mg tablet (Proscar) 5 mg PO QHS prostate 02/04/18 12/24/21 22:00 History gemfibrozil 600 mg tablet (Lopid) 600 mg PO DAILY triglycerides 02/04/18 12/24/21 10:00 History alfuzosin 10 mg tablet,extended 10 mg PO QHS prostate 04/21/20 12/24/21 22:00 History release 24 hr (Uroxatral) levothyroxine 112 mcg tablet 300 mcg PO DAILY thyroid 08/13/20 12/25/21 07:00 History fluticasone propionate 50 1 spray intranasal BID PRN 08/13/21 12/24/21 22:00 History mcg/actuation nasal ALLERGIES spray,suspension calcium carbonate 600 mg PO TID Check with primary 10/10/21 12/24/21 10:00 History doctor magnesium 250 mg tablet 400 mg PO DAILY 02/24/22 Unknown History furosemide 40 mg tablet 80 mg PO DAILY Check with primary 04/09/22 Unknown History doctor amiodarone 200 mg tablet 200 mg PO DAILY #90 tabs 04/07/23 Unknown Rx apixaban 2.5 mg tablet (Eliquis) See Rx Instructions .Route 09/24/23 Unknown Rx .COMPLEX #180 tabs digoxin 125 mcg (0.125 mg) tablet 125 mcg PO DAILY #90 tabs 11/12/23 Unknown Rx momelotinib 200 mg tablet (Ojjaara) 200 mg PO DAILY 12/06/23 Unknown History cefdinir 300 mg capsule 300 mg PO DAILY 10 days #10 caps 02/26/24 Unknown Rx hydrocodone-acetaminophen 5-325mg 1 tab PO Q8H PRN Pain 3 days #10 02/26/24 Unknown Rx 5mg-325mg TABLETS metronidazole 500 mg tablet 500 mg PO Q8H 10 days #30 tabs 02/26/24 Unknown Rx ondansetron 4 mg disintegrating 4 mg PO Q8H PRN PRN Nausea #10 tabs 02/26/24 Unknown Rx tablet Allergy/AdvReac Type Severity Reaction Status Date / Time pseudoephedrine (From AdvReac Severe Itching Verified 02/26/24 17:45 Sudafed) Family History Mother Heart disease Dementia Diabetes CAD (coronary artery disease) Father COPD (chronic obstructive pulmonary disease) Heart disease CAD (coronary artery disease) CABG Hypertension Liver disease Sister Cancer uterine Heart disease CAD (coronary artery disease) Grandfather Thyroid disorder CVA (cerebral vascular accident) Surgical History S/P hemodialysis catheter insertion History of cardiac catheterization History of radiofrequency ablation procedure for cardiac arrhythmia (12/04/21) H/O right inguinal hernia repair History of transurethral resection of prostate (07/2020) History of colonoscopy (2015) History of bone marrow biopsy H/O prostate biopsy History of thyroidectomy Social History household members: spouse Smoking Status: Former smoker how long ago did patient quit smokin years ago alcohol intake: current alcohol intake frequency: holidays/special occasions only substance use type: does not use ROS ROS ED Constitutional Constitutional ED: Denies chills or fever(s) Gastrointestinal Gastrointestinal: Reports abdominal pain; Denies constipation, diarrhea, nausea or vomiting Genitourinary Genitourinary ED: Reports urinary frequency; Denies dysuria or hematuria Musculoskeletal Musculoskeletal: Denies back pain Hematologic/Lymphatic Hematologic/Lymphatic: Reports easy bleeding and other Details: On Eliquis EXAM Physical Exam Const Vital Signs: 02/26/24 17:35 02/26/24 19:34 02/26/24 21:00 Temperature 98.7 F 98.3 F Temperature Source Temporal Pulse Rate 87 84 84 Respiratory Rate 16 16 16 Blood Pressure 147/87 H 123/57 H 127/80 H Blood Pressure Mean 107 79 95 Pulse Ox 98 94 96 Oxygen Delivery Method Room Air Room Air 02/26/24 21:00 Temperature Temperature Source Pulse Rate 84 Respiratory Rate 16 Blood Pressure 127/80 H Blood Pressure Mean 95 Pulse Ox 96 Oxygen Delivery Method Room Air Positive well nourished and well developed General Appearance ED: well developed and NAD HEENT Reports moist mucous membranes Resp normal respiratory effort and clear to auscultation bilaterally Cardio regular rate and regular rhythm GI GI Narrative: No fluid wave or ascites appreciated. Inspection: abdominal distention Palpation: soft, tender suprapubic and splenomegaly; Negative for guarding Extremity normal to inspection General Extremety ED: Negative for edema General Extremity: Negative for edema Neuro oriented x3, moves all extremities and no focal motor deficits Sensorium / Orientation: alert Psych mental status grossly normal Skin Rashes: no rashes MDM MDM MDM Narrative Medical decision making narrative: Patient is evaluated for suprapubic pain. Started yesterday afternoon. He describes it as aching. Is better with Tylenol. Concern for possible urinary retention, cystitis or diverticulitis. Patient is have a complex medical history. Bladder scan after patient brought a urine sample shows greater than 340 cc. Patient agreeable to Montgomery catheter. This is placed and he has a total of 400 cc out. I do not suspect this is acute urinary retention causing the pain. Has only mild improvement of pain with this. Urinalysis is normal not consistent with infection. Lab work including CBC and BMP largely normal. Patient has actually improvement of his chronic anemia, normal white blood cell counts and stable chronic kidney disease with a creatinine of 2.47. Due to his continued pain CT of abdomen pelvis is ordered to further evaluate. Patient declines pain medication at this time stating he does not feel too bad at this moment. CT does show 5 consistent with acute sigmoid diverticulitis. There is no signs of secondary complication including abscess or perforation on CT read. Patient is informed of this finding. Will be started antibiotics (cefdinir and Flagyl). Given first dose in the emergency room. Patient is agreeable to outpatient follow-up and I think a good candidate especially does not have a fever, leukocytosis or more severe features. Will be given a prescription for Zofran and [place] for breakthrough pain. Encouraged to take Tylenol if needed for first-line pain control. Counseled on the risk of opioid-induced constipation. Counseled on full liquid diet for the next 24-48 hours until improving. Montgomery catheter was removed prior to discharge. Patient is scheduled to have a Watchman procedure on . Is encouraged to message his doctor tomorrow to see if they would still like to operate on him with this infection. History & Record Review Additional record(s) reviewed:: Prior labs (Creatinine on 08/28/2021-2.4) Lab Data Attestation: I reviewed the patient's lab results. Labs: Laboratory Results - last 24 hr 02/26/24 18:02 WBC 7.2 RBC 4.29 L Hgb 12.0 L Hct 38.7 L MCV 90.2 MCH 28.0 MCHC 31.0 L RDW Std Deviation 59.7 H RDW Coeff of Rafael 18.3 H Plt Count 284 MPV 11.1 Neut % (Auto) Not Reportable Absolute Neuts (auto) 6.2 Absolute Lymphs (auto) 0.50 L Total Counted 100 Neutrophils % (Manual) 82 H Band Neutrophils % 5 Lymphocytes % (Manual) 7 L Monocytes % (Manual) 1 Eosinophils % (Manual) 1 Metamyelocytes % 2 H Myelocytes % 1 H Promyelocytes % 1 H Differential Comment MANUAL Diff Path Review May foll Platelet Estimate ADEQUATE RBC Morphology N CHROM Polychromasia RARE Anisocytosis 1+ Sodium 135 L Potassium 4.5 Chloride 101 Carbon Dioxide 26.0 Anion Gap 8 BUN 89 H Creatinine 2.47 H Estim Creat Clear Calc 26.54 Est GFR (MDRD) Af Amer 33 L Est GFR (MDRD) Non-Af 28 L BUN/Creatinine Ratio 36.0 H Glucose 133 H Calcium 8.6 Urine Color Yellow Urine Clarity Clear Urine pH 6.0 Ur Specific [place] 1.010 Urine Protein 15 H Urine Glucose (UA) Normal Urine Ketones Negative Urine Occult Blood Negative Urine Nitrite Negative Urine Bilirubin Negative Urine Urobilinogen Normal Ur Leukocyte Esterase Negative Urine RBC 0 SEEN Urine WBC 0 SEEN Ur Squamous Epith Cells 0 SEEN Urine Bacteria 0 SEEN Urine Mucus 0 SEEN Radiography Diagnostic Testing: Clinical Impression(s) from Imaging Studies Abdomen/Pelvis CT 02/26/24 19:12 IMPRESSION: Acute sigmoid diverticulitis. Hepatosplenomegaly. Electronically Signed: Skinny Ramirez MD at 20:24 EDT , Discharge Plan Triage Chief Complaint: Complaint ED Provider: Maggy Alberts Dx/Rx/DC Orders Clinical Impression: Acute diverticulitis Instructions: ED Diverticulitis, ED Full Liquid Diet Prescriptions: New metronidazole 500 mg tablet 500 mg PO Q8H 10 Days Qty: 30 0RF cefdinir 300 mg capsule 300 mg PO DAILY 10 Days Qty: 10 0RF hydrocodone-acetaminophen 5-325 mg tablet 1 tab PO Q8H PRN (Reason: Pain) 3 Days Qty: 10 0RF ondansetron 4 mg tablet,disintegrating 4 mg PO Q8H PRN PRN (Reason: Nausea) Qty: 10 0RF No Action levothyroxine 112 mcg tablet 300 mcg PO DAILY Patient Comments: 224 mcg five days a week and 112 mcg 2 days a week magnesium 250 mg tablet 400 mg PO DAILY Ojjaara 200 mg tablet 200 mg PO DAILY gemfibrozil [Lopid] 600 MG tablet 600 mg PO DAILY allopurinol 300 MG tablet 300 mg PO DAILY finasteride [Proscar] 5 MG tablet 5 mg PO QHS alfuzosin [Uroxatral] 10 MG tablet extended release 24 hr 10 mg PO QHS fluticasone propionate 50 mcg/actuation [place],Suspension 1 spray INTRANASAL BID PRN (Reason: ALLERGIES) calcium carbonate 600 MG tablet 600 mg PO TID furosemide 40 mg tablet 80 mg PO DAILY amiodarone 200 mg tablet 200 mg PO DAILY Qty: 90 3RF Eliquis 2.5 mg tablet See Rx Instructions .ROUTE .COMPLEX Qty: 180 3RF Dose Instruction: take 1 tablet by mouth twice a day Rx Instructions: take 1 tablet by mouth twice a day digoxin 125 mcg (0.125 mg) tablet 125 mcg PO DAILY Qty: 90 3RF Primary Care Provider: Diogenes Suarez Referrals: Diogenes Suarez DO [Primary Care Provider] - Activity Restrictions/Additional Instructions: Tries to take Tylenol as needed for pain however you have been prescribed [place] as needed for breakthrough pain. Stick to a full liquid diet for the first 48 hours or until you are starting to improve. If you are worsening despite being on these antibiotics or if you develop a fever please return to the emergency room. Print Language: Gambian Disposition Disposition: Home, Self Care Discharge Date/Time: 02/26/24 21:16
[2024-02-26 18:10] LABS: Bacteria 0 SEEN /hpf (None Seen); Mucous, Urine 0 SEEN /hpf (<or=2+); Red Blood Cells-Urine 0 SEEN /hpf (0-5); Squamous Epithelial Cells - UA 0 SEEN /hpf (0-5); White Blood Cells 0 SEEN /hpf (0-5)
[2024-02-26 18:11] LABS: Hematocrit 38.7 % (40-54); Mean Corpuscular Volume 90.2 fL (80-94); Mean Platelet Vol. 11.1 fl (6.2-12.0); POSITIVE COUNT YES; POSITIVE DIFFERENTIAL YES; POSITIVE MORPHOLOGY YES; Platelet Count 284 K/mm3 (150-450); RBC Distribution Width CV 18.3 % (11.6-14.6); RBC Distribution Width SD 59.7 fl (35.1-43.9); Red Blood Count 4.29 M/mm3 (4.6-6.2); White Blood Count 7.2 K/mm3 (4.4-11.0)
[2024-02-26 18:12] LABS: Color, Urine Yellow (Yellow); Glucose, Dipstick Normal (Normal); Ketone-Dipstick Negative (Negative); Leukocyte Esterase-Dipstick Negative /ul (Negative); Nitrite-Dipstick Negative (Negative); Occult Blood-Urine Negative /ul (Negative); Protein-Dipstick 15 mg/dl (Negative); Urine Bilirubin Dipstick Negative (Negative); Urine Clarity Clear (Clear); Urine Urobilinogen Normal (Normal)
[2024-02-26] MEDS: Lidocaine Jelly 2% 20 ML Syringe (URO-JET) 1 APPLIC TOPICAL (18:12)
[2024-02-26 18:13] LABS: Differential Indicated MANUAL DIFF
[2024-02-26 18:24] LABS: Anion Gap 8 (5-15); BUN 89 mg/dL (7-18); Calcium,Total 8.6 mg/dL (8.5-10.1); Chloride 101 mmol/L (98-107); Creatinine, Serum 2.47 mg/dL (0.70-1.30); EST Glomerular Filtration Rate 28 mL/min (>60); Est Glom Filt Rate - Afr Amer 33 mL/min (>60); Estimated Creatinine Clearance 26.54 ml/min; Glucose 133 mg/dL (74-106); Potassium 4.5 mmol/L (3.5-5.1); Sodium Level 135 mmol/L (136-145)
[2024-02-26 18:40] LABS: Differential Comment MANUAL
[2024-02-26 18:46] LABS: Neutrophil-Band 5 % (0-5); Neutrophil-Segmented 82 % (47-70); Total Cells Counted 100 (MANUAL DIFF)
[2024-02-26 18:49] LABS: Anisocytosis 1+; Eosinophil 1 % (0-5); Lymphocyte 7 % (19-41); Metamyelocyte 2 % (0-1); Monocyte 1 % (0-10); Myelocyte 1 % (0-0); Polychromasia RARE; Promyelocyte 1 % (0-0)
[2024-02-26 18:53] LABS: Platelet Estimate ADEQUATE (ADEQ); Red Cell Morphology N CHROM NORMAL (NORM C&C)
[2024-02-26 18:55] LABS: Absolute Neutrophil Count 6.2 X10^3/uL (2.0-7.7); Neutrophil # 6.25 X10^3/uL (2.7-7.7)
--- NOTE | 2024-02-26 19:12 | CT_ITS ---
INDICATION: pelvic pain EXAMINATION: CT ABDOMEN AND PELVIS WITHOUT CONTRAST - CT Abdomen And Pelvis W/O Contrast Injection TECHNIQUE: Helically acquired images were obtained of the abdomen and pelvis without oral or IV contrast. A radiation dose optimization technique was used for this scan. IV Contrast dosage and agent: None. Oral contrast: None. COMPARISON: 07/05/2020 FINDINGS: LOWER CHEST: Lung bases are clear. No cardiomegaly or pericardial effusion. LIVER: Hepatomegaly, 25 cm. No focal mass. GALLBLADDER AND BILIARY TREE: Calcified gallstone. No gallbladder distension or wall edema. No intra- or extrahepatic biliary ductal dilation. PANCREAS: No focal cystic or solid mass. SPLEEN: Enlarged to 23 cm. ADRENAL GLANDS: No nodules. KIDNEYS AND URETERS: No nephrolithiasis or hydronephrosis. PERITONEUM: No ascites or free air. BOWEL: No evidence of acute appendicitis. No stomach or bowel distension. Sigmoid diverticulosis with segment of wall thickening and pericolonic stranding in the proximal sigmoid colon. LYMPH NODES: No enlarged mesenteric or retroperitoneal lymph nodes. VESSELS: Aorta is non-dilated. URINARY BLADDER: Drained by Montgomery catheter. REPRODUCTIVE ORGANS: No pelvic masses. ABDOMINAL WALL: No discrete abdominal or pelvic wall hernia. BONES: Stable diffuse skeletal sclerotic changes consistent with history of myelofibrosis. CT/Abdomen/Pelvis without Cont IMPRESSION: Acute sigmoid diverticulitis. Hepatosplenomegaly. Electronically Signed: Skinny Ramirez MD at 20:24 EDT ,
[2024-02-26 19:34] VITALS: BP 123/57; PULSE 84; RESP 16; O2SAT 94
[2024-02-26 21:00] VITALS: BP 127/80; PULSE 84; RESP 16; TEMP 36.8; O2SAT 96
[2024-02-26] MEDS: metroNIDAZOLE 500 MG Tablet PO (21:02)
[2024-02-26] MEDS: Cefdinir 300 MG Capsule PO (21:14)
[2024-02-28 15:47] LABS: Pathologist Review Reviewed
== END 2024-02-26 21:16 | disposition home or self-care (01) ==
PROVIDERS: Emergency Provider Emergency Medicine; PCP Preventive Medicine Occupational Medicine; Visit Provider Emergency Medicine
DX: K57.32 Diverticulitis of large intestine without perforation or abscess without bleeding (principal); I50.32 Chronic diastolic (congestive) heart failure; I48.11 Longstanding persistent atrial fibrillation; N18.32 Chronic kidney disease, stage 3b; E78.5 Hyperlipidemia, unspecified; Z87.891 Personal history of nicotine dependence; Z79.01 Long term (current) use of anticoagulants; K21.9 Gastro-esophageal reflux disease without esophagitis; R35.0 Frequency of micturition; D64.9 Anemia, unspecified
CPT/HCPCS: 74176; 80048; 81001; 85025; 87086; 99283; J7030; A4216

== ENCOUNTER → 2024-08-30 | Outpatient (CLI) | payer MEDICARE, SELFPAY ==
--- NOTE | 2024-08-30 07:47 | US_ITS ---
EXAM: US Abdomen Limited, Right Upper Quadrant CLINICAL INDICATION: TECHNIQUE: Real-time ultrasound of the right upper quadrant with image documentation. COMPARISON: No relevant prior studies available. FINDINGS: SPLEEN: Spleen measures 23.0 by 8.6 x 9.1 cm. Multiple nodules identified in the spleen. These are better demonstrated on CT abdomen pelvis dated 12/09/2021. FREE FLUID: No ascites. US/Abdomen Limited IMPRESSION: No ascites. Reading Location: [facility] [place]
== END | disposition home or self-care (01) ==
LOC: US 07:46
PROVIDERS: PCP Preventive Medicine Occupational Medicine; Referring Provider Internal Medicine Nephrology; Visit Provider Internal Medicine Nephrology
DX: N18.32 Chronic kidney disease, stage 3b (principal)
CPT/HCPCS: 76705

== ENCOUNTER 2024-09-11 15:14 | Inpatient (IN) | payer MEDICARE, SELFPAY ==
[2024-09-11] VITALS (7 sets, daily range): BP systolic 99–138; BP diastolic 51–89; PULSE 71–83; RESP 16–22; TEMP 36.8–37.2; O2SAT 94–98
--- NOTE | 2024-09-11 15:33 | EKG12_ITS ---
Test Reason : Blood Pressure : */* mmHG Vent. Rate : 71 BPM Atrial Rate : 71 BPM P-R Int : 292 ms QRS Dur : 92 ms QT Int : 402 ms P-R-T Axes : 66 -12 2 degrees QTcB Int : 436 ms Sinus rhythm with 1st degree A-V block ST & T wave abnormality, consider anterior ischemia Abnormal ECG Confirmed by Baldomero Cagle ([id number]), slot editor SUJATHA FERNÁNDEZ ([id number]) on 09/13/2024 8:05:28 AM Referred By: Confirmed By: Baldomero Cagle
--- NOTE | 2024-09-11 15:36 | EX.ED.DYSGE1 ---
HPI History of Present Illness Chief Complaint: Weakness Narrative Narrative: Patient is a 74-year-old male with a past medical history of atrial fibrillation on Eliquis, portal venous hypertension, chronic kidney disease stage IIIb, hypothyroidism, myeloproliferative neoplasm, CHF, on digoxin who presented to the emerged part with a chief complaint of generalized weakness and not feeling well. According to the patient's symptoms started on 09/03/2024 and has progressively worsened through the weekend prompting him to come here for the valuation management. He states that he was evaluated at a urgent care over the weekend and was told that he probably has the flu and was sent home. Patient states that he is not getting better therefore he came here for the valuation management. States that his daughter was recently sick with COVID. [facility] Medical History Longstanding persistent atrial fibrillation Cirrhosis Enlarged liver Wears glasses Bruises easily History of renal dialysis Paroxysmal atrial flutter Portal venous hypertension Arthritis Gout Bladder disease Restless legs Injury of back Dietary restriction Gastric reflux Former smoker Shortness of breath on exertion History of edema Urinary retention Chronic kidney disease, stage 3b Hypocalcemia Mild dehydration Acute renal failure History of COVID-19 Right inguinal hernia Paroxysmal atrial fibrillation Chronic diastolic (congestive) heart failure Hypothyroidism Neutropenic fever Myeloproliferative neoplasm Splenomegaly Pancytopenia Anemia Myelofibrosis Thrombocytopenia Hyperlipidemia Leukopenia Essential thrombocytosis Home Medications ?Medication ?Instructions ?Recorded ?Last Taken ?Type allopurinol 300 mg tablet 300 mg PO DAILY gout 02/04/18 12/24/21 10:00 History finasteride 5 mg tablet (Proscar) 5 mg PO QHS prostate 02/04/18 12/24/21 22:00 History gemfibrozil 600 mg tablet (Lopid) 600 mg PO DAILY triglycerides 02/04/18 12/24/21 10:00 History alfuzosin 10 mg tablet,extended 10 mg PO QHS prostate 04/21/20 12/24/21 22:00 History release 24 hr (Uroxatral) levothyroxine 112 mcg tablet 300 mcg PO DAILY thyroid 08/13/20 12/25/21 07:00 History fluticasone propionate 50 1 spray intranasal BID PRN 08/13/21 12/24/21 22:00 History mcg/actuation nasal ALLERGIES spray,suspension calcium carbonate 600 mg PO TID Check with primary 10/10/21 12/24/21 10:00 History doctor magnesium 250 mg tablet 400 mg PO DAILY 02/24/22 Unknown History furosemide 40 mg tablet 80 mg PO DAILY Check with primary 04/09/22 Unknown History doctor apixaban 2.5 mg tablet (Eliquis) See Rx Instructions .Route 09/24/23 Unknown Rx .COMPLEX #180 tabs momelotinib 200 mg tablet (Ojjaara) 200 mg PO DAILY 12/06/23 Unknown History cefdinir 300 mg capsule 300 mg PO DAILY 10 days #10 caps 02/26/24 Unknown Rx hydrocodone-acetaminophen 5-325mg 1 tab PO Q8H PRN Pain 3 days #10 02/26/24 Unknown Rx 5mg-325mg TABLETS metronidazole 500 mg tablet 500 mg PO Q8H 10 days #30 tabs 02/26/24 Unknown Rx ondansetron 4 mg disintegrating 4 mg PO Q8H PRN PRN Nausea #10 tabs 02/26/24 Unknown Rx tablet amiodarone 200 mg tablet 200 mg PO DAILY #90 tabs 03/29/24 Unknown Rx digoxin 125 mcg (0.125 mg) tablet 125 mcg PO DAILY #90 tabs 03/29/24 Unknown Rx Allergy/AdvReac Type Severity Reaction Status Date / Time pseudoephedrine (From AdvReac Severe Itching Verified 09/11/24 15:17 Sudafed) Family History Mother Heart disease Dementia Diabetes CAD (coronary artery disease) Father COPD (chronic obstructive pulmonary disease) Heart disease CAD (coronary artery disease) CABG Hypertension Liver disease Sister Cancer uterine Heart disease CAD (coronary artery disease) Grandfather Thyroid disorder CVA (cerebral vascular accident) Surgical History S/P hemodialysis catheter insertion History of cardiac catheterization History of radiofrequency ablation procedure for cardiac arrhythmia (12/04/21) H/O right inguinal hernia repair History of transurethral resection of prostate (07/2020) History of colonoscopy (2015) History of bone marrow biopsy H/O prostate biopsy History of thyroidectomy Social History household members: spouse housing: house Smoking Status: Former smoker how long ago did patient quit smokin years ago alcohol intake: current alcohol intake frequency: holidays/special occasions only substance use type: does not use ROS ROS ED ROS Narrative Constitutional: Denies fever, chills, lightheadedness Eyes: Denies change in vision double vision blurry vision Cardiovascular: Denies chest pain or palpitations Respiratory: Denies shortness of breath Abdomen: Denies abdominal pain vomiting admits to diarrhea : Denies any urinary symptoms Neurological: Complains of generalized weakness denies numbness or tingling Musculoskeletal: Denies back pain Skin: Denies rashes or lesions EXAM Physical Exam Narrative Exam Narrative: General: Patient is lying in bed rest comfortably did not appear to be acute distress Head: Atraumatic, normocephalic Eyes: PERRL bilaterally, EOMI bilaterally, no conjunctival injection noted Neck: Soft, supple, trachea midline Cardiovascular: Regular rate and rhythm no murmurs gallops rubs noted Respiratory: Clear to auscultation bilaterally no rales rhonchi or wheezes noted Abdomen: Soft, nondistended, diffuse tenderness to palpation mainly in the right upper quadrant no rebound or guarding on exam Extremities: +4/5 strength noted in the bilateral upper and lower extremities, radial pulses +2/4 in the bilateral extremities, no pedal edema on exam Neurological: Patient following commands knew that he was at [facility] year is 2024 Skin: Warm, dry, intact no rashes or lesions noted Const Vital Signs: 09/11/24 15:15 09/11/24 15:33 09/11/24 15:33 Temperature 98.3 F 98.9 F Temperature Source Oral Oral Pulse Rate 83 71 Respiratory Rate 18 22 H Respiratory Effort Normal Non-Labored Blood Pressure 102/51 L 117/78 Blood Pressure Mean 68 91 Pulse Ox 94 98 Oxygen Delivery Method Room Air 09/11/24 16:17 09/11/24 19:00 09/11/24 21:00 Temperature 98.6 F Temperature Source Oral Pulse Rate 78 76 78 Respiratory Rate 16 Respiratory Effort Blood Pressure 133/89 H 138/89 H 99/51 L Blood Pressure Mean 103 105 67 Pulse Ox 98 98 98 Oxygen Delivery Method Room Air MDM MDM MDM Narrative Medical decision making narrative: Patient is a 74-year-old male who presented to the emergency department chief complaint of generalized weakness and not feeling well. On the differential diagnose includes but not limited to upper respiratory infection secondary viral etiology, pneumonia, ACS, high digoxin levels, hypothyroidism. Once workup is obtained reviewed he will be reevaluated. Patient given IV fluids. Patient CBC was reviewed showed a white blood count of 2.6, hemoglobin was noted be low at 8.6 in the past he was around 12. Patient's platelet count was noted 149. Patient sodium was noted be low at 126 indicating hypokalemia, chloride low at 86, creatinine noted be 2.53 which is roughly around his baseline. Patient's AST and ALT were 30 and 16 respectively with a normal total bilirubin 0.60. Patient's lipase was noted be 32. Patient TSH normal at 1.55, free T4 and T3 were 2.14 and 0.8 respectively. Patient urinalysis did not reveal any evidence of infection. Patient's CT abdomen pelvis with IV contrast showed distended gallbladder containing gallstones ultrasound is more sensitive concern for acute cholecystitis this was added on. Marked splenomegaly with indeterminate splenic low-density lesions. Enlarged prostate with brachytherapy seeds. Stable diffuse skeletal sclerotic changes consistent with a history of myelofibrosis. Indeterminate left adrenal nodule. Colonic diverticulosis without evidence of diverticulitis. Aortic valve calcifications. Patient's gallbladder ultrasound was reviewed that showed cholelithiasis with the gallbladder dilated measuring up to 11.6 cm. Mild gallbladder wall thickening at 5 mm. Negative sonographic Mancilla sign reported. If concern for acute cholecystitis recommendation with nuclear medicine hepatobiliary scan may be considered. I went back into reevaluate the patient and he clinically has acute cholecystitis. I will reach out to on-call general surgeon Dr. Cotnreras who states that he needs his gallbladder taken out. I ordered the Zosyn. I discussed with the family and they ultimately would prefer to stay here at [facility] will discuss case with hospitalist for admission, however I did not promise the family that he could be admitted here given his comorbidities. Discussed case with hospitalist Dr. Amaral who accept patient for admission. Patient and for members at bedside were notified of the plan are agreeable all question concerns answered. Lab Data Labs: Laboratory Results - last 24 hr 09/11/24 09/11/24 09/11/24 15:30 15:50 17:28 WBC 2.6 L RBC 3.03 L Hgb 8.6 L Hct 26.3 L MCV 86.8 MCH 28.4 MCHC 32.7 RDW Std Deviation 53.1 H RDW Coeff of Rafael 17.1 H Plt Count 149 L MPV 11.6 Neut % (Auto) Not Reportable Absolute Neuts (auto) 2.1 Absolute Lymphs (auto) 0.21 L Total Counted 100 Neutrophils % (Manual) 67 Band Neutrophils % 13 H Lymphocytes % (Manual) 8 L Monocytes % (Manual) 3 Metamyelocytes % 4 H Myelocytes % 4 H Other Cells % 1 Diff Path Review May foll Platelet Estimate ADEQUATE Plt Morphology Comment GIANT Polychromasia 2+ Anisocytosis 2+ Schistocytes 1+ Sodium 126 L Potassium 4.1 Chloride 86 L Carbon Dioxide 27.0 Anion Gap 13 BUN 87 H Creatinine 2.53 H Est GFR (MDRD) Af Amer 32 L Est GFR (MDRD) Non-Af 27 L BUN/Creatinine Ratio 34.4 H Glucose 106 Calcium 7.6 L Total Bilirubin 0.60 AST 30 ALT 16 Alkaline Phosphatase 50 Total Protein 7.1 Albumin 3.2 Globulin 3.9 Albumin/Globulin Ratio 0.8 L Lipase 32 L TSH 1.550 Free T4 2.14 H Free T3 pg/dL 0.8 L Urine Color Yellow Urine Clarity Clear Urine pH 6.0 Ur Specific [place] 1.010 Urine Protein 30 H Urine Glucose (UA) Normal Urine Ketones Negative Urine Occult Blood 10 H Urine Nitrite Negative Urine Bilirubin Negative Urine Urobilinogen Normal Ur Leukocyte Esterase Negative Urine RBC 0-5 SEEN Urine WBC 0-5 SEEN Ur Squamous Epith Cells 0-5 SEEN Urine Bacteria RARE Hyaline Casts 0-5 SEEN Urine Mucus 0 SEEN Digoxin 1.34 Radiography Diagnostic Testing: Clinical Impression(s) from Imaging Studies Chest X-Ray 09/11/24 15:44 IMPRESSION: Cardiomegaly with pulmonary vascular congestion Reading Location[facility] Abdomen/Pelvis CT 09/11/24 16:50 IMPRESSION: Distended gallbladder containing gallstones. Ultrasound is a more sensitive modality for the evaluation of acute cholecystitis. Patchy peripheral ground-glass opacities, nonspecific. This is a new finding when compared to the prior study. Hepatomegaly. Marked splenomegaly with indeterminate splenic low-density lesions. Enlarged prostate with brachytherapy seeds. Stable diffuse skeletal sclerotic changes consistent with history of myelofibrosis. Indeterminate left adrenal nodule. Colonic diverticulosis is noted without evidence of acute diverticulitis. Aortic valve calcifications. This is considered a marker for clinically significant aortic stenosis. Reading Location: [id number] Gallbladder Ultrasound 09/11/24 18:12 IMPRESSION: Cholelithiasis. The gallbladder is mildly dilated measuring up to 11.6 cm. Mild gallbladder wall thickening at 5 mm. Negative sonographic Mancilla's sign is reported. If there is clinical concern for acute cholecystitis, further evaluation with a nuclear medicine hepatobiliary scan may be considered. 1 cm intraparenchymal cyst superior right kidney. No right obstructive uropathy. Normal caliber common duct. No focal abnormality of the liver or pancreas. Reading Location[facility] Discharge Plan Triage Chief Complaint: Weakness ED Provider: Michael Jung Dx/Rx/DC Orders Clinical Impression: Influenza A, Acute cholecystitis, Abdominal pain Prescriptions: No Action levothyroxine 112 mcg tablet 300 mcg PO DAILY Patient Comments: 224 mcg five days a week and 112 mcg 2 days a week magnesium 250 mg tablet 400 mg PO DAILY Ojjaara 200 mg tablet 200 mg PO DAILY gemfibrozil [Lopid] 600 MG tablet 600 mg PO DAILY allopurinol 300 MG tablet 300 mg PO DAILY finasteride [Proscar] 5 MG tablet 5 mg PO QHS alfuzosin [Uroxatral] 10 MG tablet extended release 24 hr 10 mg PO QHS fluticasone propionate 50 mcg/actuation Elizabeth,Suspension 1 spray INTRANASAL BID PRN (Reason: ALLERGIES) calcium carbonate 600 MG tablet 600 mg PO TID metronidazole 500 mg tablet 500 mg PO Q8H 10 Days Qty: 30 0RF cefdinir 300 mg capsule 300 mg PO DAILY 10 Days Qty: 10 0RF hydrocodone-acetaminophen 5-325 mg tablet 1 tab PO Q8H PRN (Reason: Pain) 3 Days Qty: 10 0RF ondansetron 4 mg tablet,disintegrating 4 mg PO Q8H PRN PRN (Reason: Nausea) Qty: 10 0RF furosemide 40 mg tablet 80 mg PO DAILY Eliquis 2.5 mg tablet See Rx Instructions .ROUTE .COMPLEX Qty: 180 3RF Dose Instruction: take 1 tablet by mouth twice a day Rx Instructions: take 1 tablet by mouth twice a day digoxin 125 mcg (0.125 mg) tablet 125 mcg PO DAILY Qty: 90 3RF amiodarone 200 mg tablet 200 mg PO DAILY Qty: 90 3RF Primary Care Provider: Diogenes Suarez Referrals: Diogenes Suarez DO [Primary Care Provider] - Print Language: Vietnamese Disposition Disposition: Acute Care Hospital [facility]
[2024-09-11] MEDS: 0.9% Normal Saline (1000mL) 1,000 ML 999 ML IV (15:39)
--- NOTE | 2024-09-11 15:44 | RAD_ITS ---
PROCEDURE: CHEST PA AND LATERAL REASON FOR EXAM: Cough TECHNIQUE: Frontal and lateral views of the chest. COMPARISON: 10/13/2021. FINDINGS: Heart size is moderately enlarged. There are atherosclerotic calcifications of the thoracic aorta. Pulmonary vasculature is congested. The bones are unremarkable. RAD/Chest PA and Lateral IMPRESSION: Cardiomegaly with pulmonary vascular congestion Reading Location: [facility]
[2024-09-11 16:24] LABS: ALB/GLOB Ratio 0.8 RATIO (0.9-2.4); AST(SGOT) 30 U/L (15-37); Alanine Aminotransfer ALT/SGPT 16 U/L (16-61); Albumin, Serum 3.2 g/dL (3.2-5.0); Alkaline Phosphatase 50 U/L (45-117); Anion Gap 13 (5-15); BUN 87 mg/dL (7-18); BUN/Creat Ratio 34.4 RATIO (10-20); Calcium,Total 7.6 mg/dL (8.5-10.1); Chloride 86 mmol/L (98-107); Creatinine, Serum 2.53 mg/dL (0.70-1.30); EST Glomerular Filtration Rate 27 mL/min (>60); Est Glom Filt Rate - Afr Amer 32 mL/min (>60); Free T3 0.8 pg/mL (2.18-3.98); Globulin 3.9 g/dL (2.2-4.2); Glucose 106 mg/dL (74-106); Lipase 32 U/L (73-393); Potassium 4.1 mmol/L (3.5-5.1); Protein, Total 7.1 g/dL (6.4-8.2); Sodium Level 126 mmol/L (136-145); T4 Free Direct 2.14 ng/dL (0.76-1.46)
[2024-09-11 16:32] LABS: Hematocrit 26.3 % (40-54); Hemoglobin 8.6 g/dL (13.0-16.5); Mean Corp Hgb Conc 32.7 g/dL (32-36); Mean Corpuscular Hgb 28.4 pg (27.0-32.0); Mean Corpuscular Volume 86.8 fL (80-94); Mean Platelet Vol. 11.6 fl (6.2-12.0); POSITIVE COUNT YES; POSITIVE DIFFERENTIAL YES; POSITIVE MORPHOLOGY YES; Platelet Count 149 K/mm3 (150-450); RBC Distribution Width CV 17.1 % (11.6-14.6); RBC Distribution Width SD 53.1 fl (35.1-43.9); Red Blood Count 3.03 M/mm3 (4.6-6.2); White Blood Count 2.6 K/mm3 (4.4-11.0)
[2024-09-11 16:41] LABS: Differential Indicated MANUAL DIFF
[2024-09-11 16:42] LABS: Digoxin Level 1.34 ng/mL (0.80-2.00)
--- NOTE | 2024-09-11 16:50 | CT_ITS ---
EXAM: ABDOMEN/PELVIS W IV CONT ONLY CLINICAL HISTORY: Right upper quadrant abdominal pain. Flu. Weakness dizziness. COMPARISON: 02/26/2024 TECHNIQUE: Helical CT images of the abdomen and pelvis were performed utilizing routine protocol without intravenous contrast material. Multiplanar reformations were obtained. Dose reduction techniques were used including intermediate exposure control (AEC),iterative reconstruction technique, and/or mA and/or KV dose adjustments based on patient's size. FINDINGS: The lung bases demonstrate patchy peripheral ground-glass opacities. Aortic valve calcifications. No obvious acute abnormality of the pancreas, or right adrenal gland. Hepatomegaly. Marked splenomegaly with indeterminate splenic low-density lesions. 1 cm left adrenal nodule. Distended gallbladder containing gallstones. No acute obstructive urinary collecting system calculus. No urinary bladder wall thickening. No hydronephrosis. No acute bowel obstruction. No pneumoperitoneum. Colonic diverticulosis is noted without evidence of acute diverticulitis. No CT evidence of acute appendicitis. The aorta is normal in caliber. Mild aortic calcifications are noted. No lymphadenopathy. No significant free fluid in the abdomen and pelvis. Enlarged prostate with brachytherapy seeds. Stable diffuse skeletal sclerotic changes consistent with history of myelofibrosis. Grade 1 anterolisthesis noted of L4 on L5. CT/Abdomen/Pelvis W IV Cont ONLY IMPRESSION: Distended gallbladder containing gallstones. Ultrasound is a more sensitive mo dality for the evaluation of acute cholecystitis. Patchy peripheral ground-glass opacities, nonspecific. This is a new finding w hen compared to the prior study. Hepatomegaly. Marked splenomegaly with indeterminate splenic low-density lesions. Enlarged prostate with brachytherapy seeds. Stable diffuse skeletal sclerotic changes consistent with history of myelofibrosis. Indeterminate left adrenal nodule. Colonic diverticulosis is noted without evidence of acute diverticulitis. Aortic valve calcifications. This is considered a marker for clinically signifi cant aortic stenosis. Reading Location: [id number]
[2024-09-11 17:40] LABS: Mucous, Urine 0 SEEN /hpf (<or=2+)
[2024-09-11 17:48] LABS: Color, Urine Yellow (Yellow); Glucose, Dipstick Normal (Normal); Ketone-Dipstick Negative (Negative); Leukocyte Esterase-Dipstick Negative /ul (Negative); Nitrite-Dipstick Negative (Negative); Occult Blood-Urine 10 /ul (Negative); Protein-Dipstick 30 mg/dl (Negative); Urine Bilirubin Dipstick Negative (Negative); Urine Clarity Clear (Clear); Urine Urobilinogen Normal (Normal)
--- NOTE | 2024-09-11 18:12 | US_ITS ---
PROCEDURE: Abdominal ultrasound. REASON FOR EXAM: Right upper quadrant pain COMPARISON: Abdominal/pelvic CT 09/11/2024 FINDINGS: The visualized portions of the pancreas are grossly unremarkable, although detail is limited. No abdominal ascites. Segmentally visualized portions of the liver are grossly unremarkable. The gallbladder appears mildly dilated measuring up to 11.6 cm. Mild gallbladder wall thickening measuring 5 mm. No pericholecystic fluid. There is a dependent 1.1 cm echogenic gallstone. The common duct measures 5 mm. The portal vein is patent. The right kidney is 12.2 cm in length, without evidence of obstructive uropathy. 1 cm superior intraparenchymal cyst. US/Gallbladder IMPRESSION: Cholelithiasis. The gallbladder is mildly dilated measuring up to 11.6 cm. Mi ld gallbladder wall thickening at 5 mm. Negative sonographic Mancilla's sign is reported. If there is clinical concern for acute cholecystitis, further evaluation with a nuclear medicine hepatobiliary scan may be considered. 1 cm intraparenchymal cyst superior right kidney. No right obstructive uropath y. Normal caliber common duct. No focal abnormality of the liver or pancreas. Reading [facility]
[2024-09-11 18:17] LABS: Bacteria RARE /hpf (None Seen); Hyaline Cast 0-5 SEEN /lpf (0-5); Red Blood Cells-Urine 0-5 SEEN /hpf (0-5); Squamous Epithelial Cells - UA 0-5 SEEN /hpf (0-5); White Blood Cells 0-5 SEEN /hpf (0-5)
[2024-09-11 18:33] LABS: Lymphocyte 8 % (19-41); Metamyelocyte 4 % (0-1); Monocyte 3 % (0-10); Myelocyte 4 % (0-0); Neutrophil-Band 13 % (0-5); Neutrophil-Segmented 67 % (47-70); Other WBC Type 1 %; Platelet Morphology GIANT; Schistocytes 1+; Total Cells Counted 100 (MANUAL DIFF)
[2024-09-11 18:34] LABS: Anisocytosis 2+; Polychromasia 2+
[2024-09-11 18:35] LABS: Platelet Estimate ADEQUATE (ADEQ)
[2024-09-11 18:38] LABS: Absolute Lymphocyte Count 0.21 X10^3/uL (0.83-4.51); Absolute Neutrophil Count 2.1 X10^3/uL (2.0-7.7)
[2024-09-11] MEDS: Acetaminophen 500 MG Tablet 1000 MG PO (19:23)
[2024-09-11] MEDS: Piperacil/Tazobactam 3.375 GM in 0.9% Normal Saline (50mL MB+) 50 ML IV (21:29)
--- NOTE | 2024-09-11 22:55 | PCM.HP.STD ---
[facility] - General General Date of Admission: 09/11/24 Date of Service: 09/11/24 Chief Complaint: RUQ Abdominal Pain, Generalized Weakness and Malaise. HPI Narrative ALTON KENNEY, is a 74 M with a past medical history of essential hypertension; on furosemide, history of hypertriglyceridemia; on gemfibrozil, hypothyroidism; s/p thyroidectomy; on levothyroxine, former tobacco abuse (quit ~1981), history of myelodysplastic disorder; on momelotinib followed by oncology, history of neutropenic fever, chronic anemia, splenomegaly, chronic diastolic CHF, history of longstanding persistent atrial fibrillation; on digoxin, amiodarone and apixaban, history of Watchman device at [facility] (02/2024), history of radiofrequency ablation for cardiac arrhythmia with atrial flutter (2021), CKD; stage IIIb with previous HD, history of cirrhosis; with hepatomegaly and portal venous hypertension, RLS, history of COVID-19 (2021), history of Right inguinal hernia, history of BPH; s/p prostate biopsy with TURP (2020) with urinary retention on alfuzosin and finasteride, history of Uro-Lift, history of GERD; currently not on pharmacologic treatment, history of colonoscopy, history of allergic rhinitis; on fluticasone NS, history of gout; on allopurinol and OA; with history of back injury on prn hydrocodone-acetaminophen who presents to [facility] ER complaining of RUQ abdominal pain, generalized weakness and malaise. Mr. Kenney reports his symptoms began approximately one week prior to admission with patient having recently went to Urgent Care with subsequent diagnosis of Influenza A after his daughter had recently been sick with COVID. He was sent home to recover but he continued to worsen so he decided to come in for further evaluation and treatment. He also complains of RUQ abdominal pain made worse with palpation with non-bloody diarrhea and generalized weakness. He denies related fever, chills, nausea, vomiting, dysuria, hematuria, headache, paresthesias or rash. In the ER he was noted to have CT evidence of distended gallbladder containing gallstones with patchy peripheral ground-glass opacities and hepatomegaly with marked splenomegaly and enlarged prostate with brachytherapy seeds and stable diffuse skeletal sclerotic changes consistent with history of myelofibrosis along with indeterminate Left adrenal nodule and colonic diverticulosis without evidence of diverticulitis and aortic valve calcifications considered a marker for clinically significant aortic stenosis along with Gallbladder ultrasound that revealed cholelithiasis with gallbladder mildly dilated to ~11.6 cm along with mild gallbladder wall thickening and negative sonographic Mancilla's sign and an ~ 1 cm intraparenchymal cyst of the superior Right kidney with no obstructive uropathy complicated by laboratory evidence of Leukopenia of 2.6K present on admission (with baseline ~2.7K), Anemia; with hemoglobin of 8.6 g/dL present on admission (down from his baseline of ~9-12 g/dL) compounded by Hyponatremia of 126 mmol/L present on admission. The ER physician spoke to the general surgeon on-call and recommended admission to the hospitalist service due to this patient's medical complexity which was done. He was then admitted to the PCU for ongoing care for a stay that is expected to extend beyond 2 midnights. [facility] Medical History Longstanding persistent atrial fibrillation Cirrhosis Enlarged liver Wears glasses Bruises easily History of renal dialysis Paroxysmal atrial flutter Portal venous hypertension Arthritis Gout Bladder disease Restless legs Injury of back Dietary restriction Gastric reflux Former smoker Shortness of breath on exertion History of edema Urinary retention Chronic kidney disease, stage 3b Hypocalcemia Mild dehydration Acute renal failure History of COVID-19 Right inguinal hernia Paroxysmal atrial fibrillation Chronic diastolic (congestive) heart failure Hypothyroidism Neutropenic fever Myeloproliferative neoplasm Splenomegaly Pancytopenia Anemia Myelofibrosis Thrombocytopenia Hyperlipidemia Leukopenia Essential thrombocytosis Home Medications ?Medication ?Instructions ?Recorded ?Last Taken ?Type allopurinol 300 mg tablet 300 mg PO DAILY gout 02/04/18 09/11/24 09:00 History 300 mg finasteride 5 mg tablet (Proscar) 5 mg PO QHS prostate 02/04/18 09/10/24 22:00 History 5 mg gemfibrozil 600 mg tablet (Lopid) 600 mg PO DAILY triglycerides 02/04/18 09/11/24 09:00 History 600 mg alfuzosin 10 mg tablet,extended 10 mg PO QHS prostate 04/21/20 09/11/24 19:00 History release 24 hr (Uroxatral) 10 mg levothyroxine 112 mcg tablet 300 mcg PO DAILY thyroid 08/13/20 12/25/21 07:00 History fluticasone propionate 50 1 spray intranasal BID PRN 08/13/21 12/24/21 22:00 History mcg/actuation nasal ALLERGIES spray,suspension calcium carbonate 600 mg PO TID Check with primary 10/10/21 09/11/24 09:00 History doctor 1,200 mg magnesium 250 mg tablet 400 mg PO DAILY supplement 02/24/22 09/11/24 09:00 History 400 mg furosemide 40 mg tablet 80 mg PO DAILY Check with primary 04/09/22 09/11/24 09:00 History doctor 80 mg apixaban 2.5 mg tablet (Eliquis) See Rx Instructions .Route 09/24/23 Unknown Rx .COMPLEX #180 tabs momelotinib 200 mg tablet (Ojjaara) 200 mg PO DAILY spleen 12/06/23 09/11/24 22:00 History 200 mg hydrocodone-acetaminophen 5-325mg 1 tab PO Q8H PRN Pain 3 days #10 02/26/24 Unknown Rx 5mg-325mg TABLETS metronidazole 500 mg tablet 500 mg PO Q8H 10 days #30 tabs 02/26/24 Unknown Rx ondansetron 4 mg disintegrating 4 mg PO Q8H PRN PRN Nausea #10 tabs 02/26/24 Unknown Rx tablet amiodarone 200 mg tablet 200 mg PO DAILY #90 tabs 03/29/24 09/11/24 09:00 Rx 200 mg digoxin 125 mcg (0.125 mg) tablet 125 mcg PO DAILY #90 tabs 03/29/24 09/10/24 22:00 Rx 125 mcg clopidogrel 75 mg tablet 75 mg PO DAILY anitplatelet 09/12/24 09/11/24 09:00 History 75 mg colchicine 0.6 mg tablet 0.6 mg PO DAILY gout 09/12/24 09/11/24 09:00 History 0.6 mg furosemide 80 mg tablet 80 mg PO DAILY diuretic 09/12/24 09/11/24 09:00 History 80 mg levothyroxine 300 mcg tablet 300 mcg PO DAILY thyroid management 09/12/24 09/11/24 09:00 History 300 mcg Allergy/AdvReac Type Severity Reaction Status Date / Time pseudoephedrine (From AdvReac Severe Itching Verified 09/11/24 15:17 Sudafed) Family History Mother Heart disease Dementia Diabetes CAD (coronary artery disease) Father COPD (chronic obstructive pulmonary disease) Heart disease CAD (coronary artery disease) CABG Hypertension Liver disease Sister Cancer uterine Heart disease CAD (coronary artery disease) Grandfather Thyroid disorder CVA (cerebral vascular accident) Surgical History S/P hemodialysis catheter insertion History of cardiac catheterization History of radiofrequency ablation procedure for cardiac arrhythmia (12/04/21) H/O right inguinal hernia repair History of transurethral resection of prostate (07/2020) History of colonoscopy (2015) History of bone marrow biopsy H/O prostate biopsy History of thyroidectomy Social History household members: spouse housing: house Smoking Status: Former smoker how long ago did patient quit smokin years ago alcohol intake: current alcohol intake frequency: holidays/special occasions only substance use type: does not use ROS ROS Narrative Review of Systems: Constitutional: Patient denies fever or chills. Eyes: Patient denies changes in vision or discharge from eyes. ENT: Patient denies runny nose, sore throat or ear pain. Resp: Patient denies SOB or cough. CV: Patient denies chest pain, palpitations or heart racing. GI: Patient admits to RUQ pain and diarrhea but he denies nausea or vomiting. : Patient denies dysuria or hematuria. MSK: Patient admits to generalized weakness but he denies arthralgias or myalgias. Skin: Patient denies rash, abscess, wounds or jaundice. Psych: Patient denies symptoms of uncontrolled depression or anxiety. Neuro: Patient denies headache, paresthesias or focal neurologic deficits. Allergy: Patient denies lip swelling, tongue swelling or urticaria. Hematology: Patient admits to easy bruisability on apixaban. Endocrinology: Patient denies polyuria, polydipsia or polyphagia. 14 point ROS otherwise negative except for positives noted above in HPI. Vital Signs Vital Signs Vital Signs: 09/11/24 15:15 09/11/24 15:33 09/11/24 15:33 Temperature 98.3 F 98.9 F Temperature Source Oral Oral Pulse Rate 83 71 Respiratory Rate 18 22 H Respiratory Effort Normal Non-Labored Blood Pressure 102/51 L 117/78 Blood Pressure Mean 68 91 Pulse Ox 94 98 Oxygen Delivery Method Room Air 09/11/24 16:17 09/11/24 19:00 09/11/24 21:00 Temperature 98.6 F Temperature Source Oral Pulse Rate 78 76 78 Respiratory Rate 16 Respiratory Effort Blood Pressure 133/89 H 138/89 H 99/51 L Blood Pressure Mean 103 105 67 Pulse Ox 98 98 98 Oxygen Delivery Method Room Air Physical Exam Const alert, oriented x3, no apparent distress and average body habitus General Appearance: cooperative HEENT normocephalic, head/scalp atraumatic, hearing grossly normal bilaterally and moist oral mucous membranes Eyes PERRL, EOMs intact bilaterally and conjunctivae normal Neck no lymphadenopathy, supple and no JVD Resp normal respiratory effort, no retractions, no use of accessory muscles and clear to auscultation bilaterally Cardio regular rate and regular rhythm GI GI Narrative: RUQ TTP without guarding or rebound. Extremity normal to inspection, full ROM and no clubbing, cyanosis or edema Skin Skin Narrative: Patient has no evidence of rash, abscess, wounds or jaundice. Neuro oriented x3, CN's II-XII intact bilaterally, moves all extremities and no focal motor deficits Sensorium / Orientation: awake, alert, oriented to person, oriented to place and oriented to time Speech: speech normal Psych affect normal Results Medical Records Data Attestation: I reviewed the patient's medical records Lab / Micro Data Attestation: I reviewed the patient's lab results. 09/12/24 04:30 09/12/24 04:30 Labs: Laboratory Results - last 24 hr 09/11/24 15:30: WBC 2.6 L, RBC 3.03 L, Hgb 8.6 L, Hct 26.3 L, MCV 86.8, MCH 28.4, MCHC 32.7, RDW Std Deviation 53.1 H, RDW Coeff of Rafael 17.1 H, Plt Count 149 L, MPV 11.6, Neut % (Auto) Not Reportable, Absolute Neuts (auto) 2.1, Absolute Lymphs (auto) 0.21 L, Total Counted 100, Neutrophils % (Manual) 67, Band Neutrophils % 13 H, Lymphocytes % (Manual) 8 L, Monocytes % (Manual) 3, Metamyelocytes % 4 H, Myelocytes % 4 H, Other Cells % 1, Diff Path Review May foll, Platelet Estimate ADEQUATE, Plt Morphology Comment GIANT, Polychromasia 2+, Anisocytosis 2+, Schistocytes 1+ 09/11/24 15:50: Sodium 126 L, Potassium 4.1, Chloride 86 L, Carbon Dioxide 27.0, Anion Gap 13, BUN 87 H, Creatinine 2.53 H, Est GFR (MDRD) Af Amer 32 L, Est GFR (MDRD) Non-Af 27 L, BUN/Creatinine Ratio 34.4 H, Glucose 106, Calcium 7.6 L, Total Bilirubin 0.60, AST 30, ALT 16, Alkaline Phosphatase 50, Total Protein 7.1, Albumin 3.2, Globulin 3.9, Albumin/Globulin Ratio 0.8 L, Lipase 32 L, TSH 1.550, Free T4 2.14 H, Free T3 pg/dL 0.8 L, Digoxin 1.34 09/11/24 17:28: Urine Color Yellow, Urine Clarity Clear, Urine pH 6.0, Ur Specific Maxbass 1.010, Urine Protein 30 H, Urine Glucose (UA) Normal, Urine Ketones Negative, Urine Occult Blood 10 H, Urine Nitrite Negative, Urine Bilirubin Negative, Urine Urobilinogen Normal, Ur Leukocyte Esterase Negative, Urine RBC 0-5 SEEN, Urine WBC 0-5 SEEN, Ur Squamous Epith Cells 0-5 SEEN, Urine Bacteria RARE, Hyaline Casts 0-5 SEEN, Urine Mucus 0 SEEN Micro: Microbiology 09/11/24 15:50 Mucosa - Nose SARS-CoV-2, Influenza & RSV (PCR) - Final Influenzae A Imaging Radiology Impression Chest X-Ray 09/11/24 15:44 IMPRESSION: Cardiomegaly with pulmonary vascular congestion Reading Location: [facility] Abdomen/Pelvis CT 09/11/24 16:50 IMPRESSION: Distended gallbladder containing gallstones. Ultrasound is a more sensitive modality for the evaluation of acute cholecystitis. Patchy peripheral ground-glass opacities, nonspecific. This is a new finding when compared to the prior study. Hepatomegaly. Marked splenomegaly with indeterminate splenic low-density lesions. Enlarged prostate with brachytherapy seeds. Stable diffuse skeletal sclerotic changes consistent with history of myelofibrosis. Indeterminate left adrenal nodule. Colonic diverticulosis is noted without evidence of acute diverticulitis. Aortic valve calcifications. This is considered a marker for clinically significant aortic stenosis. Reading Location: [id number] Gallbladder Ultrasound 09/11/24 18:12 IMPRESSION: Cholelithiasis. The gallbladder is mildly dilated measuring up to 11.6 cm. Mild gallbladder wall thickening at 5 mm. Negative sonographic Mancilla's sign is reported. If there is clinical concern for acute cholecystitis, further evaluation with a nuclear medicine hepatobiliary scan may be considered. 1 cm intraparenchymal cyst superior right kidney. No right obstructive uropathy. Normal caliber common duct. No focal abnormality of the liver or pancreas. Reading Location: [facility] Assessment & Plan Assessment/Plan (1) Acute cholecystitis: (2) Abdominal pain: QUALIFIERS: Abdominal location: right upper quadrant Qualified Code(s): R10.11 - Right upper quadrant pain (3) Diarrhea: QUALIFIERS: Diarrhea type: unspecified type Qualified Code(s): R19.7 - Diarrhea, unspecified (4) Pneumonia: QUALIFIERS: Laterality: bilateral Lung location: unspecified part of lung Pneumonia type: due to unspecified organism Qualified Code(s): J18.9 - Pneumonia, unspecified organism (5) Influenza A: (6) Myelofibrosis: (7) Hyponatremia: (8) Longstanding persistent atrial fibrillation: (9) Presence of Watchman left atrial appendage closure device: (10) Aortic stenosis: QUALIFIERS: Cardiac valve disease etiology: etiology unspecified Qualified Code(s): I35.0 - Nonrheumatic aortic (valve) stenosis PLAN: Plan 1. CT evidence of distended gallbladder containing gallstones with RUQ pain due to suspected Acute Cholecystitis with Diarrhea - Admit to PCU. Continue IV piperacillin-tazobactam plus add IV metronidazole and await culture and sensitivity data. Keep NPO and start pantoprazole 40 mg IV daily. Check stool studies and place on enteric precautions. Give ondansetron prn nausea and vomiting. Give acetaminophen supp. prn for [id number] (level 1-5/10) pain or fever. Give morphine IV prn for severe (level 6-10/10) pain. Finally, we will consult general surgeon on-call to see this patient on-rounds in the AM for further recommendations regarding cholecystectomy this admission with help appreciated in advance. 2. CT evidence of patchy peripheral ground-glass opacities consistent with suspected early Bacterial Pneumonia superinfection after recently diagnosed Influenza A complicating #1 - Continue broad-spectrum antibiotics as outlined above. Check urinary antigens to Streptococcus pneumonia and Legionella. Place on contact and droplet precautions. No Tamiflu was ordered due to time of illness and NPO status. BNP of 170.3 pg/mL present on admission mitigating against significant AE of CHF with baseline lowest level of 505.5 pg/mL since 2018. 3. History of Myelodysplastic disorder; on momelotinib followed by oncology with chronic anemia and Leukopenia of 2.6K present on admission with splenomegaly compounding #1 & #2 - Type & Screen blood in case transfusion becomes necessary. Hold momelotinib at this time. Finally, we will consult oncology as per general surgeon's recommendations with help appreciated in advance. 4. Hyponatremia of 126 mmol/L present on admission adding to the medical complexity of #1 - #3 - Give NS IVF and recheck level in AM to follow trend. Check urine and serum osmolality. Recheck of sodium revealed modest increase to 129 mmol/L. 5. History of longstanding persistent atrial fibrillation; on digoxin, amiodarone and apixaban with history of Watchman device adding to the burden of disease outlined from #1 - #4 - Switch digoxin to IV after check level. Hold amiodarone and apixaban with upcoming surgery. 6. CT evidence of incidentally noted aortic valve calcifications considered a marker for clinically significant Aortic Stenosis - Check echocardiogram to assess for suspected Aortic Stenosis to assess severity and help optimize choice of anesthesia. 7. Essential Hypertension; on furosemide - Hold furosemide and give hydralazine IV prn for systolic blood pressure > 160 mmHg. 8. CKD; stage IIIb with previous HD - Stable. Check renal indices daily to follow trend. 9. History of hypertriglyceridemia; on gemfibrozil - Hold gemfibrozil while NPO and check Lipid Profile. 10. Hypothyroidism; s/p thyroidectomy; on levothyroxine - Check thyroid studies and restart oral levothyroxine after patient resumes oral intake. 11. Former tobacco abuse (quit ~1981) - Noted. 12. History of neutropenic fever - Noted. 13. Chronic diastolic CHF - Stable with no signs of volume overload at this time and BNP of 170.3 pg/mL present on admission (lowest since 2018). 14. History of radiofrequency ablation for cardiac arrhythmia with atrial flutter (2021) - Noted. 15. History of cirrhosis; with hepatomegaly and portal venous hypertension - Stable. 16. RLS - Stable. 17. History of COVID-19 (2021) - Noted. 18. History of Right inguinal hernia - Noted. 19. History of BPH; s/p prostate biopsy with TURP (2020) with urinary retention on alfuzosin and finasteride - Restart home regimen when patient resumes oral intake. 20. History of Uro-Lift - Noted. 21. History of GERD; currently not on pharmacologic treatment - Patient started on IV pantoprazole for #1. 22. History of colonoscopy - Noted. 23. History of allergic rhinitis; on fluticasone NS - Continue fluticasone nasal spray as before. 24. History of gout; on allopurinol - Hold allopurinol for now. Stable with no evidence of acute flare at this time. 25. OA; with history of back injury on prn hydrocodone-acetaminophen - Follow pain scale outlined in #1. 26. DVT prophylaxis - SCD's only with impending surgery. Total time: Approximately (but not less than) 75 minutes. Charges/Coding Visit Charges Inpatient E&M: 77566 Init Hosp L3
--- NOTE | 2024-09-11 23:55 | ECHOD_ITS ---
Reason For Study Reason For Study: WEAKNESS Procedure This was a 2D Doppler, Color Flow transthoracic echocardiogram. Exam performed portable in patient room. Left Ventricle Normal LV size. The estimated ejection fraction is 60 %. Unable to assess diastolic dysfunction. No regional wall motion abnormalities noted. Right Ventricle Normal RV size. Normal systolic function. Atria The left and right atria are normal. No doppler evidence for ASD. Mitral Valve There is moderate to severe mitral annular calcification. There is no mitral valve stenosis. Trivial mitral valve insufficiency. Tricuspid Valve There is no tricuspid stenosis. Trivial tricuspid valve insufficiency. Unable to estimate RV systolic pressure due to insufficient tricuspid regurgitant envelope. Aortic Valve Trisinus/trileaflet aortic valve. Mild diffuse aortic valve thickening. Mild aortic stenosis. Mild (1+) aortic valve insufficiency. Pulmonic Valve There is no pulmonic valvular stenosis. No pulmonic valve insufficiency. Great Vessels Mildly dilated aortic root. Pericardium/Pleural No pericardial effusion. MMode/2D Measurements & Calculations LVIDd: 5.9 cm IVSd: 1.3 cm Ao root diam: 3.6 cm LVIDs: 4.1 cm LVPWd: 1.3 cm RVDd: 4.1 cm FS: 30.0 % LAV(MOD-bp): 60.3 ml LVAd ap4: 40.3 cm2 SV(MOD-sp4): 82.5 ml LAV(MOD-bp) Indexed: 31.1 ml/m2 LVLd ap4: 8.8 cm SI(MOD-sp4): 42.5 ml/m2 LAV(MOD-sp2): 55.7 ml EDV(MOD-sp4): 150.7 ml LAV(MOD-sp4): 60.7 ml EDV(sp4-el): 157.8 ml LVAs ap4: 25.1 cm2 LVLs ap4: 7.7 cm ESV(MOD-sp4): 68.2 ml ESV(sp4-el): 69.2 ml EF(MOD-sp4): 54.8 % EF(sp4-el): 56.2 % SV(sp4-el): 88.6 ml LA A4 area: 20.5 cm2 LA dimension(2D): 4.1 cm RA A4 area: 18.5 cm2 TAPSE: 2.3 cm Time Measurements MV dec time: 0.23 sec Doppler Measurements & Calculations MV E max lars: 142.7 cm/sec Lat Peak E' Lars: 15.6 cm/sec Med Peak E' Lars: 10.0 cm/sec MV A max lars: 95.8 cm/sec E/E' lat: 9.1 E/E' med: 14.3 MV E/A: 1.5 Ao V2 max: 271.5 cm/sec AI max lars: 399.7 cm/sec LV V1 max: 114.1 cm/sec Ao max P.5 mmHg AI max P.9 mmHg LV V1 max P.2 mmHg Ao V2 mean: 171.8 cm/sec LV V1 mean P.4 mmHg Ao mean P.6 mmHg AI dec slope: 320.8 cm/sec2 LV V1 mean: 86.7 cm/sec Ao V2 VTI: 47.4 cm AI P1/2t: 364.9 msec LV V1 VTI: 26.1 cm AV (velocity ratio): 0.55 PA V2 max: 129.0 cm/sec TR max lars: 259.4 cm/sec TR max P.9 mmHg ECHO/Echo Complete Interpretation Summary The estimated ejection fraction is 60 %. Trivial mitral valve insufficiency. Mild (1+) aortic valve insufficiency. Mild aortic stenosis. Mildly dilated aortic root. Ordering Physician: Chidi Pandey Referring Physician: MICHOACANO LEONG Performed By: Maral Conway RDCS
[2024-09-12] VITALS (14 sets, daily range): BP systolic 101–121; BP diastolic 48–59; PULSE 64–99; RESP 16–18; TEMP 36.6–38.6; O2SAT 93–100; BMI 27.0
[2024-09-12 00:24] LABS: Osmolality, Serum 291 mOsm/KG (280-301)
[2024-09-12 00:47] LABS: BNP,B-Type NATRIURETIC PEPTIDE 170.3 pg/mL (0-100)
[2024-09-12 01:06] LABS: Ferritin 1077 ng/mL (26-388); Iron 20 ug/dL (65-175); Iron Binding Capacity,Total 200 ug/dL (250-450); Magnesium 2.6 mg/dL (1.6-2.6)
[2024-09-12] MEDS: 0.9% Normal Saline (1000mL) 1,000 ML 70 ML IV (01:33)
[2024-09-12] MEDS: Pantoprazole Sodium 40 MG in 0.9% Normal Saline (100mL MB+) 100 ML 330 MG IV ×2 (01:33→12:12)
[2024-09-12 01:36] LABS: Osmolality, Urine 312 mOsm/KG
[2024-09-12] MEDS: metroNIDAZOLE 500 MG/100 ML BAG 100 MG IV ×2 (04:22→13:37)
[2024-09-12 04:43] LABS: Hematocrit 23.8 % (40-54); Hemoglobin 7.6 g/dL (13.0-16.5); Mean Corp Hgb Conc 31.9 g/dL (32-36); Mean Corpuscular Hgb 27.7 pg (27.0-32.0); Mean Corpuscular Volume 86.9 fL (80-94); Mean Platelet Vol. 13.2 fl (6.2-12.0); POSITIVE COUNT YES; POSITIVE DIFFERENTIAL YES; POSITIVE MORPHOLOGY YES; Platelet Count 186 K/mm3 (150-450); RBC Distribution Width CV 17.3 % (11.6-14.6); RBC Distribution Width SD 54.4 fl (35.1-43.9); Red Blood Count 2.74 M/mm3 (4.6-6.2); White Blood Count 2.3 K/mm3 (4.4-11.0)
[2024-09-12 04:50] LABS: Differential Indicated MANUAL DIFF
[2024-09-12 04:53] LABS: Ionized Calcium 0.98 mmol/L (1.09-1.30)
[2024-09-12 05:04] LABS: ALB/GLOB Ratio 0.8 RATIO (0.9-2.4); AST(SGOT) 27 U/L (15-37); Alanine Aminotransfer ALT/SGPT 17 U/L (16-61); Albumin, Serum 2.9 g/dL (3.2-5.0); Alkaline Phosphatase 43 U/L (45-117); Anion Gap 11 (5-15); BUN 80 mg/dL (7-18); BUN/Creat Ratio 31.9 RATIO (10-20); Calcium,Total 7.3 mg/dL (8.5-10.1); Chloride 92 mmol/L (98-107); Cholesterol 74 mg/dL (200); Creatinine, Serum 2.51 mg/dL (0.70-1.30); EST Glomerular Filtration Rate 27 mL/min (>60); Est Glom Filt Rate - Afr Amer 33 mL/min (>60); Estimated Creatinine Clearance 25.74 ml/min; Globulin 3.6 g/dL (2.2-4.2); Glucose 120 mg/dL (74-106); High Density Lipoprotein 13 mg/dL; Phosphorus 4.5 mg/dL (2.5-4.9); Potassium 4.3 mmol/L (3.5-5.1); Protein, Total 6.5 g/dL (6.4-8.2); Sodium Level 129 mmol/L (136-145); Triglycerides 261 mg/dL; Very Low Density Lipoprotein 52 mg/dL (5-40)
[2024-09-12 05:05] LABS: Vitamin B12 822 pg/mL (211-911)
[2024-09-12 05:30] LABS: Lymphocyte 12 % (19-41); Myelocyte 3 % (0-0); Neutrophil-Band 17 % (0-5); Neutrophil-Segmented 65 % (47-70); Total Cells Counted 100 (MANUAL DIFF)
[2024-09-12 05:31] LABS: Differential Comment SCANNED; Eosinophil 1 % (0-5); Monocyte 2 % (0-10)
[2024-09-12 05:32] LABS: Absolute Lymphocyte Count 0.28 X10^3/uL (0.83-4.51); Absolute Neutrophil Count 1.9 X10^3/uL (2.0-7.7)
[2024-09-12] MEDS: Piperacil/Tazobactam 3.375 GM in 0.9% Normal Saline (50mL MB+) 50 ML IV ×3 (06:55→23:59)
--- NOTE | 2024-09-12 07:00 | NM_ITS ---
PROCEDURE: HEPATOBILLIARY IMAGING REASON FOR EXAM: Distended gallbladder. TECHNIQUE: Intravenous Choletec with planar imaging of the abdomen. RADIOPHARMACEUTICAL: 5.6 mCi of mebrofenin COMPARISON: Comparison is made with prior ultrasound of the right upper quadrant dated September 11, 2024. FINDINGS: There is good uptake of the radiopharmaceutical by the liver. Normal gallbladder visualization with the gallbladder identified by 30 minutes. NM/Hepatobilliary Imaging IMPRESSION: Normal hepatobiliary scan. Reading Location: [id number]
--- NOTE | 2024-09-12 07:54 | CPS ---
SMI and Pep placed at bedside. Pt sleeping at this time. Rx held
--- NOTE | 2024-09-12 08:54 | CON.PCM.SX_ITS ---
Assessment & Plan Assessment/Plan (1) Abdominal pain: QUALIFIERS: Abdominal location: right upper quadrant Qualified Code(s): R10.11 - Right upper quadrant pain PLAN: I have been consulted in conjunction with Dr. Contreras. He will independently evaluate this patient. Patient presents with weakness and diarrhea x [address] ab/pel scan and RUQ u/s concerning for acute cholecystitis. Liver enzymes are normal. Patient has multiple comorbidities including myelofibrosis, cardiac history including aortic stenosis and history of Watchman placement and influenza A. He continues on a daily aspirin. Patient also has stool studies pending from admission. We will obtain a HIDA scan to determine filling status of the gallbladder. If gallbladder does not fill, patient will need to proceed with a cholecystostomy tube. If the HIDA scan is normal, no surgical intervention will be recommended and patient can start a diet. I have discuss my findings and patient's history with Dr. Contreras. Patient has had the opportunity to ask and have questions answered. Patient verbally understands and agrees with the plan. Thank you for allowing us to participate in this patient's care. HPI Consult Data Date of Consult: 09/12/24 HPI Narrative Reason for Consultation: Acute cholecystitis HPI Narrative: ALTON BROWN, is a 74 M who presents with a compliant of weakness. He states for 1 week he has been fatigued and felt weak. He is a poor historian. He denies any cough, congestion or abdominal pain. He states he went to urgent care and tested positive for influenza A. Patient also notes he has had diarrhea for approximately 1 week as well. He denies being around any sick contacts. He states he has a history of fatty liver, myelofibrosis (he follows with oncology from [facility]). He has a cardiac history which includes a watchman placement (02/2024), cardiac cath (2017), ablation for A Fib (11/2021). Patient has also had a previous right chest tunneled dialysis catheter (11/2021). He denies any myocardial infarction, stroke. He follows with [facility] in [place]. He is on a daily aspirin. He denies any complications or side effects from anesthesia. He notes rare occasion of alcohol consumption. He states he lives at home with his . He is able to get around easily at home. He states no previous abdominal surgeries, however according to his surgical history he has had a previous right inguinal hernia repair. CT scan of ab/pelvis demonstrated: Distended gallbladder containing gallstones. Ultrasound is a more sensitive modality for the evaluation of acute cholecystitis. Patchy peripheral ground-glass opacities, nonspecific. This is a new finding when compared to the prior study. Hepatomegaly. Marked splenomegaly with indeterminate splenic low-density lesions. Enlarged prostate with brachytherapy seeds. Stable diffuse skeletal sclerotic changes consistent with history of myelofibrosis. Indeterminate left adrenal nodule. Colonic diverticulosis is noted without evidence of acute diverticulitis. Aortic valve calcifications. This is considered a marker for clinically significant aortic stenosis RUQ u/s demonstrated: Cholelithiasis. The gallbladder is mildly dilated measuring up to 11.6 cm. Mild gallbladder wall thickening at 5 mm. Negative sonographic Mancilla's sign is reported. If there is clinical concern for acute cholecystitis, further evaluation with a nuclear medicine hepatobiliary scan may be considered. 1 cm intraparenchymal cyst superior right kidney. No right obstructive uropathy. Normal caliber common duct. No focal abnormality of the liver or pancreas. Labs 09/12, remarkable for CBC 2.3, Hgb 7.6, Hct 23.8, Plt 186. Sodium 129, Creat 2.51, BUN 80. T Bili 0.50, AST 27, ALT 17, Alk phos 43 PFS Medical History Longstanding persistent atrial fibrillation Cirrhosis Enlarged liver Wears glasses Bruises easily History of renal dialysis Paroxysmal atrial flutter Portal venous hypertension Arthritis Gout Bladder disease Restless legs Injury of back Dietary restriction Gastric reflux Former smoker Shortness of breath on exertion History of edema Urinary retention Chronic kidney disease, stage 3b Hypocalcemia Mild dehydration Acute renal failure History of COVID-19 Right inguinal hernia Paroxysmal atrial fibrillation Chronic diastolic (congestive) heart failure Hypothyroidism Neutropenic fever Myeloproliferative neoplasm Splenomegaly Pancytopenia Anemia Myelofibrosis Thrombocytopenia Hyperlipidemia Leukopenia Essential thrombocytosis Home Medications ?Medication ?Instructions ?Recorded ?Last Taken ?Type allopurinol 300 mg tablet 300 mg PO DAILY gout 8 09/11/24 09:00 History 300 mg finasteride 5 mg tablet (Proscar) 5 mg PO QHS prostate 02/04/18 09/10/24 22:00 History 5 mg gemfibrozil 600 mg tablet (Lopid) 600 mg PO DAILY trig lycerides 02/04/18 09/11/24 09:00 History 600 mg alfuzosin 10 mg tablet,extended 10 mg PO QHS prostate 04/21/20 09/11/24 19:00 History release 24 hr (Uroxatral) 10 mg levothyroxine 112 mcg tablet 300 mcg PO DAILY thyroid 08/13/20 12/25/21 07:00 History fluticasone propionate 50 1 spray intranasal BID PRN 0 08/13/21 12/24/21 22:00 History mcg/actuation nasal ALLERGIES spray,suspension calcium carbonate 600 mg PO TID Check with jaya chadwick 10/10/21 09/11/24 09:00 History doctor 1,200 mg magnesium 250 mg tablet 400 mg PO DAILY supplement 0 02/24/22 09/11/24 09:00 History 400 mg furosemide 40 mg tablet 80 mg PO DAILY Check with pr imary 04/09/22 09/11/24 09:00 History doctor 80 mg apixaban 2.5 mg tablet (Eliquis) See Rx Instructions . Route 09/24/23 Unknown Rx .COMPLEX #180 tabs momelotinib 200 mg tablet (Ojjaara) 200 mg PO DAILY sp ciara 12/06/23 09/11/24 22:00 History 200 mg hydrocodone-acetaminophen 5-325mg 1 tab PO Q8H PRN Rolando n 3 days #10 02/26/24 Unknown Rx 5mg-325mg TABLETS metronidazole 500 mg tablet 500 mg PO Q8H 10 days #30 tabs 02/26/24 Unknown Rx ondansetron 4 mg disintegrating 4 mg PO Q8H PRN PRN Na usea #10 tabs 02/26/24 Unknown Rx tablet amiodarone 200 mg tablet 200 mg PO DAILY #90 tabs 06/1109/11/24 09:00 Rx 200 mg digoxin 125 mcg (0.125 mg) tablet 125 mcg PO DAILY #90 tabs 03/29/24 09/10/24 22:00 Rx 125 mcg clopidogrel 75 mg tablet 75 mg PO DAILY anitplatelet 09/12/24 09/11/24 09:00 History 75 mg colchicine 0.6 mg tablet 0.6 mg PO DAILY gout 5 09/11/24 09:00 History 0.6 mg furosemide 80 mg tablet 80 mg PO DAILY diuretic 08/2009/11/24 09:00 History 80 mg levothyroxine 300 mcg tablet 300 mcg PO DAILY thyroid management 09/12/24 09/11/24 09:00 History 300 mcg Allergy/AdvReac Type Severity Reaction Status Date / Time pseudoephedrine (From AdvReac Severe Itching Verified 09/11/24 15:17 Sudafed) Family History Mother Heart disease Dementia Diabetes CAD (coronary artery disease) Father COPD (chronic obstructive pulmonary disease) Heart disease CAD (coronary artery disease) CABG Hypertension Liver disease Sister Cancer uterine Heart disease CAD (coronary artery disease) Grandfather Thyroid disorder CVA (cerebral vascular accident) Surgical History S/P hemodialysis catheter insertion History of cardiac catheterization History of radiofrequency ablation procedure for cardiac arrhythmia (12/04/21) H/O right inguinal hernia repair History of transurethral resection of prostate (07/2020) History of colonoscopy (2015) History of bone marrow biopsy H/O prostate biopsy History of thyroidectomy Social History household members: spouse housing: house Smoking Status: Former smoker how long ago did patient quit smokin years ago alcohol intake: current alcohol intake frequency: holidays/special occasions only substance use type: does not use ROS Constitutional Constitutional: Reports fatigue, lethargy, malaise and weakness Eyes Eyes: Reports systems reviewed and no addt'l complaints, except as documented ENT HEENT: Reports systems reviewed and no addt'l complaints, except as documented Cardiovascular Cardiovascular: Reports systems reviewed and no addt'l complaints, except as documented Respiratory/Chest Respiratory/Chest: Reports systems reviewed and no addt'l complaints, except as documented Gastrointestinal Gastrointestinal: Reports diarrhea Genitourinary Genitourinary: Reports systems reviewed and no addt'l complaints, except as documented Musculoskeletal Musculoskeletal: Reports systems reviewed and no addt'l complaints, except as documented Integumentary Integumentary: Reports systems reviewed and no addt'l complaints, except as documented Neurologic Neurologic: Reports systems reviewed and no addt'l complaints, except as documented Psychiatric Psychiatric: Reports systems reviewed and no addt'l complaints, except as documented Endocrine Endocrinology: Reports systems reviewed and no addt'l complaints, except as documented Hematologic/Lymphatic Hematologic/Lymphatic: Reports systems reviewed and no addt'l complaints, except as documented Allergic/Immunologic Allergic/Immunologic: Reports systems reviewed and no addt'l complaints, except as documented Lab / Micro Data 09/12/24 04:30 09/12/24 04:30 Labs: Laboratory Results - last 24 hr 09/11/24 15:30: WBC 2.6 L, RBC 3.03 L, Hgb 8.6 L, Hct 26.3 L, MCV 86.8, MCH 28.4, MCHC 32.7, RDW Std Deviation 53.1 H, RDW Coeff of Rafael 17.1 H, Plt Count 149 L, MPV 11.6, Neut % (Auto) Not Reportable, Absolute Neuts (auto) 2.1, A bsolute Lymphs (auto) 0.21 L, Total Counted 100, Neutrophils % (Manual) 67, Band Neutrophils % 13 H, Lymphocytes % (Manual) 8 L, Monocytes % (Manual) 3, M etamyelocytes % 4 H, Myelocytes % 4 H, Other Cells % 1, Diff Path Review May , Platelet Estimate ADEQUATE, Plt Morphology Comment GIANT, Polychromasia 2+, Anisocytosis 2+, Schistocytes 1+, B-Natriuretic Peptide 170.3 H 09/11/24 15:50: Sodium 126 L, Potassium 4.1, Chloride 86 L, Carbon Dioxide 27.0, Anion Gap 13, BUN 87 H, Creatinine 2.53 H, Est GFR (MDRD) Af Amer 32 L, Est GFR (MDRD) Non-Af 27 L, BUN/Creatinine Ratio 34.4 H, Glucose 106, Serum Osmolality 291, Calcium 7.6 L, Magnesium 2.6, Iron 20 L, TIBC 200 L, Iron Saturation 10.0 L , Ferritin 1077 H, Total Bilirubin 0.60, AST 30, ALT 16, Alkaline Phosphatase 50, Total Protein 7.1, Albumin 3.2, Globulin 3.9, Albumin/Globulin Ratio 0.8 L, Lipase 32 L, Folate 25.40, TSH 1.550, Free T4 2.14 H, Free T3 pg/dL 0.8 L, Digoxin 1.34 09/11/24 17:28: Urine Color Yellow, Urine Clarity Clear, Urine pH 6.0, Ur Specific [place] 1.010, Urine Protein 30 H, Urine Glucose (UA) Normal, Urine Ketones Negative, Urine Occult Blood 10 H, Urine Nitrite Negative, Urine Bilirubin Negative, Urine Urobilinogen Normal, Ur Leukocyte Esterase Negative, Urine RBC 0-5 SEEN, Urine WBC 0-5 SEEN, Ur Squamous Epith Cells 0-5 SEEN, Urine Bacteria RARE, Hyaline Casts 0-5 SEEN, Urine Mucus 0 SEEN 09/12/24 01:15: Urine Osmolality 312 09/12/24 04:30: WBC 2.3 L, RBC 2.74 L, Hgb 7.6 L, Hct 23.8 L, MCV 86.9, MCH 27.7, MCHC 31.9 L, RDW Std Deviation 54.4 H, RDW Coeff of Rafael 17.3 H, Plt Count 186, MPV 13.2 H, Neut % (Auto) Not Reportable, Absolute Neuts (auto) 1.9 L, A bsolute Lymphs (auto) 0.28 L, Total Counted 100, Neutrophils % (Manual) 65, Band Neutrophils % 17 H, Lymphocytes % (Manual) 12 L, Monocytes % (Manual) 2, Eosinophils % (Manual) 1, Myelocytes % 3 H, Differential Comment SCANNED, Diff Path Review November, Sodium 129 L, Potassium 4.3, Chloride 92 L, Carbon Dioxide 25.0, Anion Gap 11, BUN 80 H, Creatinine 2.51 H, Estim Creat Clear Calc 25.74, E st GFR (MDRD) Af Amer 33 L, Est GFR (MDRD) Non-Af 27 L, BUN/Creatinine Ratio 31.9 H, Glucose 120 H, Calcium 7.3 L, Phosphorus 4.5, Total Bilirubin 0.50, AST 27, ALT 17, Alkaline Phosphatase 43 L, Total Protein 6.5, Albumin 2.9 L, Globulin 3.6, Albumin/Globulin Ratio 0.8 L, Triglycerides 261 H, Cholesterol 74, LDL Cholesterol 9, VLDL Cholesterol 52 H, HDL Cholesterol 13 L, Vitamin B12 822 09/12/24 04:45: Ionized Calcium 0.98 L Micro: Microbiology 09/12/24 01:15 Urine, Random Legionella Antigen - Final 09/12/24 01:15 Urine, Random Streptococcus pneumoniae Antigen (M - Final 09/11/24 15:50 Mucosa - Nose SARS-CoV-2, Influenza & RSV (PCR) - Final Influenzae A Imaging Radiology Impression Chest X-Ray 09/11/24 15:44 IMPRESSION: Cardiomegaly with pulmonary vascular congestion Reading Location: [facility] Abdomen/Pelvis CT 09/11/24 16:50 IMPRESSION: Distended gallbladder containing gallstones. Ultrasound is a more sensitive modality for the evaluation of acute cholecystitis. Patchy peripheral ground-glass opacities, nonspecific. This is a new finding when compared to the prior study. Hepatomegaly. Marked splenomegaly with indeterminate splenic low-density lesions. Enlarged prostate with brachytherapy seeds. Stable diffuse skeletal sclerotic changes consistent with history of myelofibrosis. Indeterminate left adrenal nodule. Colonic diverticulosis is noted without evidence of acute diverticulitis. Aortic valve calcifications. This is considered a marker for clinically significant aortic stenosis. Reading Location: [id number] Gallbladder Ultrasound 09/11/24 18:12 IMPRESSION: Cholelithiasis. The gallbladder is mildly dilated measuring up to 11.6 cm. Mild gallbladder wall thickening at 5 mm. Negative sonographic Mancilla's sign is reported. If there is clinical concern for acute cholecystitis, further evaluation with a nuclear medicine hepatobiliary scan may be considered. 1 cm intraparenchymal cyst superior right kidney. No right obstructive uropathy. Normal caliber common duct. No focal abnormality of the liver or pancreas. Reading Location: [facility] Charges/Coding Visit Charges Inpatient E&M: 56147 Init Hosp L2
--- NOTE | 2024-09-12 09:44 | NURSING ---
PT states he is not on oxygen at home but he does have a few tanks that he has left over from an illness that his PCP prescribed him. He said that he will put it on at night sometimes. When he came back up from the HIDDA scan he was 80% on RA, I put him on 2l and it only took it up to 85%, to maintain his SPO2@93% he was put on 5 l nc.
[2024-09-12] MEDS: 0.9% Saline Lock 10 ML Syringe IV ×2 (11:01→15:16)
[2024-09-12] MEDS: Digoxin 250 MCG/ML Ampul 125 MCG IV (11:01)
--- NOTE | 2024-09-12 11:15 | CPS ---
Pt decreased to 3 lpm. Saturation 97% on 3 lpm. Nurse aware of change.
[2024-09-12 11:49] LABS: Pathologist Review Reviewed
[2024-09-12 11:55] LABS: Pathologist Review Reviewed
--- NOTE | 2024-09-12 11:55 | CASEMGMT ---
ROMÁN LANDRY Face to Face with patient for initial transition planning/care coordination assessment. RN CM introduced self and role at [facility]. Patient lying in bed, alert and oriented. Patient willing to participate in assessment and is able to answer all questions appropriately. Care providers, pharmacy, and demographics verified. Strata: 2 PCP: Daniela Specialists: Teri, nephrologsit; Gerd, oncologsit [facility] main elizabeth Preferred Pharmacy: [facility] Insurance: O [facility] Prescription Benefit: yes Living Will/HPOA: yes, Penny Kenney LNOK: , daughter Living Arrangements: Patient lives with in a 2 story home. Patient is independent and able to ambulate stairs Transportation: self, DME/HHC: Patient has shower chair, cane, walker. [facility] No previous SNF. Will monitor for home oxygen, prefers [facility]. Patient wishes to discharge home, denies need for home health at this time. Patient states he has no further needs or concerns at this time. CM to follow for discharge planning needs that may arise. Disposition Plan: Patient to discharge home with family support and follow-up plans in place. Will monitor for home oxygen. Susannah COLE, RN, CM
--- NOTE | 2024-09-12 12:35 | NURSING ---
Tried to call daughter back,to give her an update, the number she left was a work number so I did not leave a message.
[2024-09-12] MEDS: 0.9% Normal Saline (100mL Bag) 100 ML 15 ML IV (15:40)
--- NOTE | 2024-09-12 17:30 | PN.HOSP_ITS ---
Subjective Subjective Doing well, no issues overnight Objective Data Objective Data Vital Signs: Vital Signs Temp Pulse Resp BP Pulse Ox O2 Del Method O2 Flow Rate 98.8 F 99 18 111/50 L 98 Nasal Cannula 3 09/12/24 14:03 09/12/24 15:00 09/12/24 14:03 09/12/24 14:03 09/12/24 14:03 09/12/24 14:03 09/12/24 14:03 Oxygen Flow Rate (L/min) 3 Oxygen Delivery Method Nasal Cannula Weight: 177 lb 11.081 oz Body Mass Index (BMI) 27.0 Intake & Output: Intake and Output for Last 24 Hours 09/11/24 09/12/24 09/13/24 03:59 03:59 03:59 Intake Total 1160 / 1160 1070.75 / 1070.75 Output Total 600 / 600 Balance 1160 / 1160 470.75 / 470.75 Lab / Micro Data 09/12/24 04:30 09/12/24 04:30 Labs: Laboratory Results - last 24 hr 09/11/24 15:30: Absolute Neuts (auto) 2.1, Absolute Lymphs (auto) 0.21 L, Total Counted 100, Neutrophils % (Manual) 67, Band Neutrophils % 13 H, Lymphocytes % (Manual) 8 L, Monocytes % (Manual) 3, Metamyelocytes % 4 H, Myelocytes % 4 H, Other Cells % 1, Diff Path Review Reviewed, Platelet Estimate ADEQUATE, Plt Morphology Comment GIANT, Polychromasia 2+, Anisocytosis 2+, Schistocytes 1+, B- Natriuretic Peptide 170.3 H 09/11/24 15:50: Serum Osmolality 291, Magnesium 2.6, Iron 20 L, TIBC 200 L, Iron Saturation 10.0 L, Ferritin 1077 H, Folate 25.40 09/11/24 17:28: Urine Color Yellow, Urine Clarity Clear, Urine pH 6.0, Ur Specific [place] 1.010, Urine Protein 30 H, Urine Glucose (UA) Normal, Urine Ketones Negative, Urine Occult Blood 10 H, Urine Nitrite Negative, Urine Bilirubin Negative, Urine Urobilinogen Normal, Ur Leukocyte Esterase Negative, Urine RBC 0-5 SEEN, Urine WBC 0-5 SEEN, Ur Squamous Epith Cells 0-5 SEEN, Urine Bacteria RARE, Hyaline Casts 0-5 SEEN, Urine Mucus 0 SEEN 09/12/24 01:15: Urine Osmolality 312 09/12/24 04:30: WBC 2.3 L, RBC 2.74 L, Hgb 7.6 L, Hct 23.8 L, MCV 86.9, MCH 27.7, MCHC 31.9 L, RDW Std Deviation 54.4 H, RDW Coeff of Rafael 17.3 H, Plt Count 186, MPV 13.2 H, Neut % (Auto) Not Reportable, Absolute Neuts (auto) 1.9 L, A bsolute Lymphs (auto) 0.28 L, Total Counted 100, Neutrophils % (Manual) 65, Band Neutrophils % 17 H, Lymphocytes % (Manual) 12 L, Monocytes % (Manual) 2, Eosinophils % (Manual) 1, Myelocytes % 3 H, Differential Comment SCANNED, Diff Path Review Reviewed, Sodium 129 L, Potassium 4.3, Chloride 92 L, Carbon Dioxide 25.0, Anion Gap 11, BUN 80 H, Creatinine 2.51 H, Estim Creat Clear Calc 25.74, E st GFR (MDRD) Af Amer 33 L, Est GFR (MDRD) Non-Af 27 L, BUN/Creatinine Ratio 31.9 H, Glucose 120 H, Calcium 7.3 L, Phosphorus 4.5, Total Bilirubin 0.50, AST 27, ALT 17, Alkaline Phosphatase 43 L, Total Protein 6.5, Albumin 2.9 L, Globulin 3.6, Albumin/Globulin Ratio 0.8 L, Triglycerides 261 H, Cholesterol 74, LDL Cholesterol 9, VLDL Cholesterol 52 H, HDL Cholesterol 13 L, Vitamin B12 822 09/12/24 04:45: Ionized Calcium 0.98 L 09/12/24 14:35: Blood Type B POSITIVE, Antibody Screen POSITIVE H, Antibody Identification ANTI-E, Crossmatch See Detail Micro: Microbiology 09/11/24 15:50 Mucosa - Nose SARS-CoV-2, Influenza & RSV (PCR) - Final Influenzae A 09/12/24 01:15 Urine, Random Legionella Antigen - Final 09/12/24 01:15 Urine, Random Streptococcus pneumoniae Antigen (M - Final Radiography Diagnostic Testing: Radiology Impression Abdomen/Pelvis CT 09/11/24 16:50 IMPRESSION: Distended gallbladder containing gallstones. Ultrasound is a more sensitive modality for the evaluation of acute cholecystitis. Patchy peripheral ground-glass opacities, nonspecific. This is a new finding when compared to the prior study. Hepatomegaly. Marked splenomegaly with indeterminate splenic low-density lesions. Enlarged prostate with brachytherapy seeds. Stable diffuse skeletal sclerotic changes consistent with history of myelofibrosis. Indeterminate left adrenal nodule. Colonic diverticulosis is noted without evidence of acute diverticulitis. Aortic valve calcifications. This is considered a marker for clinically significant aortic stenosis. Reading Location: [id number] Gallbladder Ultrasound 09/11/24 18:12 IMPRESSION: Cholelithiasis. The gallbladder is mildly dilated measuring up to 11.6 cm. Mild gallbladder wall thickening at 5 mm. Negative sonographic Mancilla's sign is reported. If there is clinical concern for acute cholecystitis, further evaluation with a nuclear medicine hepatobiliary scan may be considered. 1 cm intraparenchymal cyst superior right kidney. No right obstructive uropathy. Normal caliber common duct. No focal abnormality of the liver or pancreas. Reading [facility] Ech[facility] 09/11/24 23:55 Interpretation Summary The estimated ejection fraction is 60 %. Trivial mitral valve insufficiency. Mild (1+) aortic valve insufficiency. Mild aortic stenosis. Mildly dilated aortic root. Ordering Physician: Chidi Pandey Referring Physician: MICHOACANO LEONG Performed By: Maral Conway RDCS Hepatobiliary Scan Nuclear Medicine 09/12/24 07:00 IMPRESSION: Normal hepatobiliary scan. Reading Location: [id number] Physical Exam Narrative General: Alert, Oriented x3, Cooperative, No apparent distress HEENT: Atraumatic, PERRLA, EOMI, Normocephalic Oral: Moist Mucosa Neck: Supple, No JVD Lungs: Diminished, Normal air movement, No rhonchi, No wheeze, No rales Cardiovascular: Regular rate, Regular Rhythm, Normal S1, Normal S2, No murmurs Abdomen: Soft, Non Tender, Non-Distended, No Hepato-splenomegaly Extremities: No edema, Capillary Refill Less than 3 Seconds Skin: No rashes, No breakdown Musculoskeletal: No Tenderness to Palpation of Joints or Extremities Neurological: No focal neurological deficits, Motor Exam 5/5 strength throughout, Sensory exam intact to light touch and pain Psych/Mental Status: Normal Affect, Appropriate Assessment & Plan Assessment/Plan (1) Diarrhea: QUALIFIERS: Diarrhea type: unspecified type Qualified Code(s): R 19.7 - Diarrhea, unspecified (2) Pneumonia: QUALIFIERS: Pneumonia type: due to unspecified organism L aterality: bilateral Lung location: unspecified part of lung Qualified Code(s): J18.9 - Pneumonia, unspecified organism (3) Influenza A: PLAN: Plan 1. Acute hypoxic insufficiency secondary to influenza A with groundglass opacities ? Will continue with Zosyn to cover for any superimposed bacterial infection but discontinue Flagyl ? He is outside the window for Tamiflu ? Wean oxygen as able 2. Transient abdominal pain ? On admission he was having some right upper quadrant abdominal pain however thorough investigation shows he does not have acute cholecystitis ? Appreciate surgery's assistance 3. Myelodysplastic disorder ? Will transfuse 1 unit and hold his home momelotinib 4. Persistent A-fib/essential HTN/HLD/chronic diastolic CHF ? Continue with amiodarone and his blood pressure medications as necessary ? Will monitor and make adjustments as necessary ? It appears that he does not take Eliquis anymore that he was changed to Plavix and aspirin ? His hyponatremia is improving so we will continue to hold Lasix 5. Hypothyroidism ? He is status post thyroidectomy ? Continue with Synthroid ? Thyroid studies demonstrated challenge for peripheral conversion his T4 is elevated but his T3 is low, TSH is normal 6. Gout ? Continue with colchicine and allopurinol ? Stable DVT: SCDs Charges/Coding Visit Charges Inpatient E&M: 25180 Subs Hosp L2
[2024-09-12] MEDS: Acetaminophen 650 MG Suppository RC (17:44)
[2024-09-13] VITALS (7 sets, daily range): BP systolic 101–122; BP diastolic 51–58; PULSE 61–68; RESP 16–18; TEMP 36.1–36.8; O2SAT 94–100; BMI 27.1
[2024-09-13] MEDS: Levothyroxine 150 MCG Tablet 300 MCG PO (05:43)
[2024-09-13] MEDS: Piperacil/Tazobactam 3.375 GM in 0.9% Normal Saline (50mL MB+) 50 ML IV ×3 (05:44→22:03)
[2024-09-13 05:48] LABS: Hematocrit 25.9 % (40-54); Hemoglobin 8.1 g/dL (13.0-16.5); Mean Corp Hgb Conc 31.3 g/dL (32-36); Mean Corpuscular Hgb 27.8 pg (27.0-32.0); Mean Platelet Vol. 13.4 fl (6.2-12.0); POSITIVE COUNT YES; POSITIVE DIFFERENTIAL YES; POSITIVE MORPHOLOGY YES; Platelet Count 167 K/mm3 (150-450); RBC Distribution Width CV 16.8 % (11.6-14.6); RBC Distribution Width SD 53.9 fl (35.1-43.9); Red Blood Count 2.91 M/mm3 (4.6-6.2); White Blood Count 2.3 K/mm3 (4.4-11.0)
[2024-09-13 06:10] LABS: Differential Indicated MANUAL DIFF
[2024-09-13 06:23] LABS: Anion Gap 13 (5-15); BUN 62 mg/dL (4-19); BUN/Creat Ratio 27.8 RATIO (10-20); Calcium 7.7 mg/dL (7.6-11.0); Carbon Dioxide 22.7 mmol/L (22.0-29.0); Chloride 99 mmol/L (96-108); Creatinine, Serum 2.2 mg/dL (0.8-1.3); EST Glomerular Filtration Rate 31 (>60); Estimated Creatinine Clearance 29.36 ml/min; Glucose 101 mg/dL (70-99); Potassium 4.2 mmol/L (3.3-5.1); Sodium Level 134 mmol/L (133-145)
[2024-09-13 07:43] LABS: Lymphocyte 10 % (19-41); Monocyte 1 % (0-10); Neutrophil-Band 5 % (0-5); Neutrophil-Segmented 82 % (47-70); Nucleated Red Bld Cells,Manual 1 % (0-5); Promyelocyte 2 % (0-0); Total Cells Counted 100 (MANUAL DIFF)
[2024-09-13 07:45] LABS: Ovalocyte 1+; Platelet Estimate ADEQUATE (ADEQ); Red Cell Morphology N CHROM NORMAL (NORM C&C)
[2024-09-13 07:46] LABS: Absolute Lymphocyte Count 0.22 X10^3/uL (0.83-4.51)
--- NOTE | 2024-09-13 08:14 | PCM.PN.SRG ---
Subjective Subjective Patient evaluated resting comfortably in bed. He seems restless/annoyed with examination today. when asked, he does respond appropriately to questions. He denies abdominal pain, nausea, vomiting, fever over night. He tolerated full liquids just fine he states without abodminal pain. Objective Data Objective Data Vital Signs: Vital Signs Temp Pulse Resp BP Pulse Ox O2 Del Method O2 Flow Rate 97.2 F L 61 16 113/53 L 94 Nasal Cannula 3 09/13/24 04:30 09/13/24 04:30 09/13/24 04:30 09/13/24 04:30 09/13/24 04:30 09/13/24 04:31 09/13/24 04:31 Oxygen Flow Rate (L/min) 3 Oxygen Delivery Method Nasal Cannula Weight: 178 lb 5.663 oz Body Mass Index (BMI) 27.1 Intake & Output: Intake and Output for Last 24 Hours 09/11/24 09/12/24 09/13/24 23:59 23:59 23:59 Intake Total 1050 / 1050 1460.58 / 1460.58 149.75 / 149.75 Output Total 600 / 600 Balance 1050 / 1050 860.58 / 860.58 149.75 / 149.75 Lab / Micro Data 09/13/24 05:36 09/13/24 05:36 Labs: Laboratory Results - last 24 hr 09/11/24 15:30: Diff Path Review Reviewed 09/12/24 04:30: Diff Path Review Reviewed 09/12/24 14:35: Blood Type B POSITIVE, Antibody Screen POSITIVE H, Antibody Identification ANTI-E, Crossmatch See Detail 09/13/24 05:36: WBC 2.3 L, RBC 2.91 L, Hgb 8.1 L, Hct 25.9 L, MCV 89.0, MCH 27.8, MCHC 31.3 L, RDW Std Deviation 53.9 H, RDW Coeff of Rafael 16.8 H, Plt Count 167, MPV 13.4 H, Neut % (Auto) Not Reportable, Absolute Neuts (auto) 2.0, Absolute Lymphs (auto) 0.22 L, Total Counted 100, Neutrophils % (Manual) 82 H, Band Neutrophils % 5, Lymphocytes % (Manual) 10 L, Monocytes % (Manual) 1, Promyelocytes % 2 H, Nucleated RBCs/100 WBC 1, Diff Path Review May foll, Platelet Estimate ADEQUATE, RBC Morphology N CHROM, Ovalocytes 1+, Sodium 134, Potassium 4.2, Chloride Direct 99, Carbon Dioxide 22.7, Anion Gap 13, BUN 62 H, Creatinine 2.2 H, Estim Creat Clear Calc 29.36, Est GFR (MDRD) Non-Af 31 L, BUN/Creatinine Ratio 27.8 H, Glucose 101 H, Calcium 7.7 Micro: Microbiology 09/12/24 19:59 Stool Stool Lactoferrin - Final 09/12/24 19:59 Stool Clostridioides difficile (PCR) - Final 09/11/24 15:50 Mucosa - Nose SARS-CoV-2, Influenza & RSV (PCR) - Final Influenzae A 09/12/24 01:15 Urine, Random Legionella Antigen - Final 09/12/24 01:15 Urine, Random Streptococcus pneumoniae Antigen (M - Final Radiography Diagnostic Testing: Radiology Impression Echocardiogram 09/11/24 23:55 Interpretation Summary The estimated ejection fraction is 60 %. Trivial mitral valve insufficiency. Mild (1+) aortic valve insufficiency. Mild aortic stenosis. Mildly dilated aortic root. Ordering Physician: Chidi Pandey Referring Physician: MICHOACANO LEONG Performed By: Maral Conway RDCS Hepatobiliary Scan Nuclear Medicine 09/12/24 07:00 IMPRESSION: Normal hepatobiliary scan. Reading Location: [id number] Physical Exam GI GI Narrative: Abdomen- soft, non-tender to palpation Assessment & Plan Assessment/Plan (1) Abdominal pain: QUALIFIERS: Abdominal location: right upper quadrant Qualified Code(s): R10.11 - Right upper quadrant pain PLAN: I am following this patient in conjunction with Dr. Contreras. He will independently evaluate this patient. Labs reviewed. Patient received 1 unit of PRBC yesterday Increase to regular cardiac diet No surgical intervention is being recommended We will sign off at this time. Please reconsult us if needed Charges/Coding Visit Charges Inpatient E&M: 80127 [facility] Hosp L1
[2024-09-13] MEDS: Amiodarone 200 MG Tablet PO (09:17)
[2024-09-13] MEDS: Allopurinol 300 MG Tablet PO (09:17)
[2024-09-13] MEDS: Colchicine 0.6 MG TABLET PO (09:21)
[2024-09-13] MEDS: Pantoprazole Sodium 40 MG in 0.9% Normal Saline (100mL MB+) 100 ML 330 MG IV (09:21)
[2024-09-13] MEDS: Digoxin 250 MCG/ML Ampul 125 MCG IV (09:22)
[2024-09-13] MEDS: Aspirin 81 MG TAB.CHEW PO (11:24)
[2024-09-13] MEDS: Clopidogrel Bisulfate 75 MG Tablet PO (11:24)
[2024-09-13 13:35] LABS: Pathologist Review Reviewed
[2024-09-13] MEDS: 0.9% Saline Lock 10 ML Syringe IV ×2 (13:54→22:03)
--- NOTE | 2024-09-13 15:36 | PN.HOSP_ITS ---
Subjective Subjective Doing well, no issues overnight. Oxygenation has improved and he is now requiring 3 L nasal cannula Objective Data Objective Data Vital Signs: Vital Signs Temp Pulse Resp BP Pulse Ox O2 Del Method O2 Flow Rate 97.7 F L 68 16 112/51 L 96 Nasal Cannula 3 09/13/24 10:00 09/13/24 10:00 09/13/24 10:00 09/13/24 10:00 09/13/24 10:00 09/13/24 10:00 09/13/24 10:00 Oxygen Flow Rate (L/min) 3 Oxygen Delivery Method Nasal Cannula Weight: 178 lb 5.663 oz Body Mass Index (BMI) 27.1 Intake & Output: Intake and Output for Last 24 Hours 09/12/24 09/13/24 09/14/24 03:59 03:59 03:59 Intake Total 1160 / 1160 1450.33 / 1450.33 210 / 210 Output Total 600 / 600 Balance 1160 / 1160 850.33 / 850.33 210 / 210 Lab / Micro Data 09/13/24 05:36 09/13/24 05:36 Labs: Laboratory Results - last 24 hr 09/12/24 14:35: Blood Type B POSITIVE, Antibody Screen POSITIVE H, Antibody Identification ANTI-E, Crossmatch See Detail 09/13/24 05:36: WBC 2.3 L, RBC 2.91 L, Hgb 8.1 L, Hct 25.9 L, MCV 89.0, MCH 27.8, MCHC 31.3 L, RDW Std Deviation 53.9 H, RDW Coeff of Rafael 16.8 H, Plt Count 167, MPV 13.4 H, Neut % (Auto) Not Reportable, Absolute Neuts (auto) 2.0, A bsolute Lymphs (auto) 0.22 L, Total Counted 100, Neutrophils % (Manual) 82 H, Band Neutrophils % 5, Lymphocytes % (Manual) 10 L, Monocytes % (Manual) 1, P romyelocytes % 2 H, Nucleated RBCs/100 WBC 1, Diff Path Review Reviewed, Platelet Estimate ADEQUATE, RBC Morphology N CHROM, Ovalocytes 1+, Sodium 134, Potassium 4.2, Chloride Direct 99, Carbon Dioxide 22.7, Anion Gap 13, BUN 62 H, Creatinine 2.2 H, Estim Creat Clear Calc 29.36, Est GFR (MDRD) Non-Af 31 L, B UN/Creatinine Ratio 27.8 H, Glucose 101 H, Calcium 7.7 Micro: Microbiology 09/12/24 19:59 Stool Stool Lactoferrin - Final 09/12/24 19:59 Stool Enteric Bacteriology - Final 09/12/24 19:59 Stool Clostridioides difficile (PCR) - Final 09/11/24 15:50 Mucosa - Nose SARS-CoV-2, Influenza & RSV (PCR) - Final Influenzae A 09/12/24 01:15 Urine, Random Legionella Antigen - Final 09/12/24 01:15 Urine, Random Streptococcus pneumoniae Antigen (M - Final Physical Exam Narrative General: Alert, Oriented x3, Cooperative, No apparent distress HEENT: Atraumatic, PERRLA, EOMI, Normocephalic Oral: Moist Mucosa Neck: Supple, No JVD Lungs: Diminished, Normal air movement, No rhonchi, No wheeze, No rales Cardiovascular: Regular rate, Regular Rhythm, Normal S1, Normal S2, No murmurs Abdomen: Soft, Non Tender, Non-Distended, No Hepato-splenomegaly Extremities: No edema, Capillary Refill Less than 3 Seconds Skin: No rashes, No breakdown Musculoskeletal: No Tenderness to Palpation of Joints or Extremities Neurological: No focal neurological deficits, Motor Exam 5/5 strength throughout, Sensory exam intact to light touch and pain Psych/Mental Status: Normal Affect, Appropriate Assessment & Plan Assessment/Plan (1) Diarrhea: QUALIFIERS: Diarrhea type: unspecified type Qualified Code(s): R 19.7 - Diarrhea, unspecified (2) Pneumonia: QUALIFIERS: Pneumonia type: due to unspecified organism L aterality: bilateral Lung location: unspecified part of lung Qualified Code(s): J18.9 - Pneumonia, unspecified organism (3) Influenza A: PLAN: Plan 1. Acute hypoxic insufficiency secondary to influenza A with groundglass opacities ? Will continue with Zosyn to cover for any superimposed bacterial infection but discontinue Flagyl ? He is outside the window for Tamiflu ? Wean oxygen as able 2. Transient abdominal pain ? On admission he was having some right upper quadrant abdominal pain however thorough investigation shows he does not have acute cholecystitis ? Appreciate surgery's assistance 3. Myelodysplastic disorder ? Will transfuse 1 unit and hold his home momelotinib 4. Persistent A-fib/essential HTN/HLD/chronic diastolic CHF ? Continue with amiodarone and his blood pressure medications as necessary ? Will monitor and make adjustments as necessary ? It appears that he does not take Eliquis anymore that he was changed to Plavix and aspirin which can be restarted today since he is not can undergo any type of procedure ? His hyponatremia is improving so we will continue to hold Lasix 5. Hypothyroidism ? He is status post thyroidectomy ? Continue with Synthroid ? Thyroid studies demonstrated challenge for peripheral conversion his T4 is elevated but his T3 is low, TSH is normal 6. Gout ? Continue with colchicine and allopurinol ? Stable DVT: SCDs Charges/Coding Visit Charges Inpatient E&M: 19792 Subs Hosp L2
[2024-09-14 02:02] VITALS: BMI 26.4
[2024-09-14 03:26] VITALS: BP 110/50; PULSE 60; RESP 16; TEMP 36.2; O2SAT 98
[2024-09-14] MEDS: Piperacil/Tazobactam 3.375 GM in 0.9% Normal Saline (50mL MB+) 50 ML IV (06:25)
[2024-09-14] MEDS: Levothyroxine 150 MCG Tablet 300 MCG PO (06:27)
[2024-09-14 07:25] LABS: Hematocrit 26.5 % (40-54); Hemoglobin 8.3 g/dL (13.0-16.5); Mean Corp Hgb Conc 31.3 g/dL (32-36); Mean Corpuscular Hgb 28.3 pg (27.0-32.0); Mean Corpuscular Volume 90.4 fL (80-94); POSITIVE COUNT YES; POSITIVE DIFFERENTIAL YES; POSITIVE MORPHOLOGY YES; Platelet Count 112 K/mm3 (150-450); RBC Distribution Width SD 55.1 fl (35.1-43.9); Red Blood Count 2.93 M/mm3 (4.6-6.2); White Blood Count 2.1 K/mm3 (4.4-11.0)
[2024-09-14 08:09] LABS: Differential Indicated MANUAL DIFF
[2024-09-14 08:19] LABS: Lymphocyte 2 % (19-41); Metamyelocyte 3 % (0-1); Monocyte 3 % (0-10); Myelocyte 1 % (0-0); Neutrophil-Band 8 % (0-5); Neutrophil-Segmented 83 % (47-70); Total Cells Counted 100 (MANUAL DIFF)
[2024-09-14 08:20] LABS: Absolute Neutrophil Count 1.9 X10^3/uL (2.0-7.7); Platelet Estimate SLT DEC (ADEQ); Red Cell Morphology NORM C+C NORMAL (NORM C&C)
[2024-09-14 08:21] LABS: Absolute Lymphocyte Count 0.04 X10^3/uL (0.83-4.51)
[2024-09-14 10:48] VITALS: O2SAT 96
[2024-09-14 11:00] LABS: Anion Gap 13 (5-15); BUN 55 mg/dL (4-19); BUN/Creat Ratio 26.5 RATIO (10-20); Calcium 7.8 mg/dL (7.6-11.0); Carbon Dioxide 21.2 mmol/L (22.0-29.0); Chloride 102 mmol/L (96-108); Creatinine, Serum 2.1 mg/dL (0.8-1.3); EST Glomerular Filtration Rate 33 (>60); Estimated Creatinine Clearance 30.76 ml/min; Glucose 104 mg/dL (70-99); Potassium 4.3 mmol/L (3.3-5.1); Sodium Level 137 mmol/L (133-145)
[2024-09-14 11:59] VITALS: BP 101/72; PULSE 70; RESP 18; TEMP 36.6; O2SAT 98
[2024-09-14] MEDS: Allopurinol 300 MG Tablet PO (12:01)
[2024-09-14 12:02] VITALS: BP 101/72; PULSE 72
[2024-09-14] MEDS: Amiodarone 200 MG Tablet PO (12:02)
[2024-09-14] MEDS: Colchicine 0.6 MG TABLET PO (12:02)
[2024-09-14] MEDS: Digoxin 250 MCG/ML Ampul 125 MCG IV (12:02)
[2024-09-14] MEDS: Clopidogrel Bisulfate 75 MG Tablet PO (12:02)
[2024-09-14] MEDS: 0.9% Saline Lock 10 ML Syringe IV (12:05)
[2024-09-14] MEDS: Aspirin 81 MG TAB.CHEW PO (12:18)
[2024-09-14] MEDS: Pantoprazole Sodium 40 MG in 0.9% Normal Saline (100mL MB+) 100 ML 330 MG IV (12:39)
[2024-09-14 14:09] VITALS: O2SAT 93; O2SAT 94
--- NOTE | 2024-09-14 14:15 | DCINST_ITS ---
Discharge Instructions Diet Discharge Diet: Renal Diet DC O2, CPAP, BIPAP needs Home O2 Discharge instructions: No Dressing / Incision Discharge Activity: Return to Normal Activity Dressing / Incision Call your doctor if you observe: Fever of 101 or Higher, Shortness of breath, Dizziness, Fainting spells, Swelling in the ankles, Chest pain and Increased palpitations (irregular heartbeat) Follow Up Care Test Results: Test results from this visit will be discussed in further detail at your follow- up appointment, if applicable. Discharge Plan Admission Admit Date/Time: 09/11/24 23:45 Attending Provider: Nabor Vidal Primary Care Provider: Diogenes Suarez Consulting Providers: Geoffrey Contreras; Chidi Pandey Discharge Orders/Prescriptions Prescriptions: New amoxicillin-pot clavulanate 875-125 mg tablet 1 tab PO BID Qty: 8 0RF Continued magnesium 250 mg tablet 400 mg PO DAILY Ojjaara 200 mg tablet 200 mg PO DAILY gemfibrozil [Lopid] 600 MG tablet 600 mg PO DAILY allopurinol 300 MG tablet 300 mg PO DAILY finasteride [Proscar] 5 MG tablet 5 mg PO QHS alfuzosin [Uroxatral] 10 MG tablet extended release 24 hr 10 mg PO QHS fluticasone propionate 50 mcg/actuation [place],Suspension 1 spray INTRANASAL BID PRN (Reason: ALLERGIES) calcium carbonate 600 MG tablet 600 mg PO TID Patient Comments: pt states he takes 1200mg once a day hydrocodone-acetaminophen 5-325 mg tablet 1 tab PO Q8H PRN (Reason: Pain) 3 Days Qty: 10 0RF levothyroxine 300 mcg tablet 300 mcg PO DAILY Patient Comments: pt states he takes 300 mcg daily for 6 days and on Saturdays he takes 1.5 tablets 450 mcg colchicine 0.6 mg tablet 0.6 mg PO DAILY Patient Comments: PLEASE SEE ATTACHED FOR DETAILED DIRECTIONS clopidogrel 75 mg tablet 75 mg PO DAILY furosemide 80 mg tablet 80 mg PO DAILY furosemide 40 mg tablet 80 mg PO DAILY Patient Comments: pt states that he takes 1-80 mg tab daily digoxin 125 mcg (0.125 mg) tablet 125 mcg PO DAILY Qty: 90 3RF amiodarone 200 mg tablet 200 mg PO DAILY Qty: 90 3RF Discontinued levothyroxine 112 mcg tablet 300 mcg PO DAILY Patient Comments: 224 mcg five days a week and 112 mcg 2 days a week metronidazole 500 mg tablet 500 mg PO Q8H 10 Days Qty: 30 0RF ondansetron 4 mg tablet,disintegrating 4 mg PO Q8H PRN PRN (Reason: Nausea) Qty: 10 0RF Eliquis 2.5 mg tablet See Rx Instructions .ROUTE .COMPLEX Qty: 180 3RF Dose Instruction: take 1 tablet by mouth twice a day Rx Instructions: take 1 tablet by mouth twice a day Referrals / Follow Up: Diogenes Suarez DO [Primary Care Provider] - Within 1 Week Disposition Disposition (needs filled in before D/C Order can be placed): Home, Self Care
--- NOTE | 2024-09-14 14:52 | CASEMGMT ---
Patient has order for discharge. ROMÁN LANDRY in to discuss needs at discharge, at bedside. Patient denies need for HHC or therapy at discharge. Patient denies needs or help at discharge. Patient states he cannot find is wallet, ROMÁN LANDRY stated she would talk to nurse to see if wallet was locked up. Patient denied further questions or concerns. ROMÁN LANDRY updated patient's nurse regarding wallet and also informed PCU director.
--- NOTE | 2024-09-14 15:23 | CHAPLAIN ---
Type of Pastoral Visit _x__ Initial Visit ___ Follow-up Visit ___ On-call Visit ___ General Patient Visit ___ Spiritual Assessment ___ Family Conference ___ Bereavement ___ Rapid Response ___ Code Blue ___ Other (describe below) Pastoral Care Referral From _x__ Patient ___ Family ___ Nurse ___ Physician ___ Supervisor Lead Refinery ___ Cellar Worker ___ Other (describe below) Sacrament/Intervention _x__ Active listening ___ Anointing ___ Uatsdin ___ Bereavement ___ Communion _x__ Joy exploration ___ _x__ Life review _x__ Prayer ___ Reconciliation ___ Sacrament of Sick ___ Supportive presence ___ Wedding ___ Other (describe below) Pastoral Comments patient remembers this study manager from previous admission; pt gives update and expresses his joy in God; pt states that he is not worried about anything and that it is all in God's hands; pt talks about his joy and life; prayer is welcomed
[2024-09-14 16:20] VITALS: BP 106/51; PULSE 62; RESP 18; TEMP 36.4; O2SAT 94
--- NOTE | 2024-09-14 18:31 | PCM.DC.SUM ---
Providers Date of Admission: 09/11/24 Primary Care Physician: Dr. Diogenes Suarez DO Consultations 09/12/24 00:35 Consult: General Surgery Routine Consulting Provider: Geoffrey Contreras Reason for Consult: Acute Cholecystitis. EMERGENT Consult: No MD Notified: Yes Date Notified: 09/11/24 Time Notified: 23:49 Method of Notification: ED Physician Initiated Reason For Visit: ACUTE CHOLECYSTITIS PNEUMONIA AFTER FLU A Diagnosis Discharge Diagnosis (1) Diarrhea: Status: Acute Code(s): R19.7 - Diarrhea, unspecified Qualifiers: Diarrhea type: unspecified type Qualified Code(s): R19.7 - Diarrhea, unspecified (2) Pneumonia: Status: Acute Code(s): J18.9 - Pneumonia, unspecified organism Qualifiers: Pneumonia type: due to unspecified organism Laterality: bilateral Lung location: unspecified part of lung Qualified Code(s): J18.9 - Pneumonia, unspecified organism (3) Influenza A: Status: Acute Code(s): J10.1 - Influenza due to other identified influenza virus with other respiratory manifestations Medications at Discharge Home Medications allopurinol 300 mg tablet 300 mg PO DAILY gout 02/04/18 finasteride 5 mg tablet (Proscar) 5 mg PO QHS prostate 02/04/18 gemfibrozil 600 mg tablet (Lopid) 600 mg PO DAILY triglycerides 02/04/18 alfuzosin 10 mg tablet,extended release 24 hr (Uroxatral) 10 mg PO QHS prostate 04/21/20 fluticasone propionate 50 mcg/actuation nasal spray,suspension 1 spray intranasal BID PRN ALLERGIES 08/13/21 calcium carbonate 600 mg PO TID Check with primary doctor 10/10/21 magnesium 250 mg tablet 400 mg PO DAILY supplement 02/24/22 furosemide 40 mg tablet 80 mg PO DAILY Check with primary doctor 04/09/22 momelotinib 200 mg tablet (Ojjaara) 200 mg PO DAILY spleen 12/06/23 hydrocodone-acetaminophen 5-325mg 5mg-325mg 1 tab PO Q8H PRN Pain 3 days #10 TABLETS 02/26/24 amiodarone 200 mg tablet 200 mg PO DAILY #90 tabs 03/29/24 digoxin 125 mcg (0.125 mg) tablet 125 mcg PO DAILY #90 tabs 03/29/24 clopidogrel 75 mg tablet 75 mg PO DAILY anitplatelet 09/12/24 colchicine 0.6 mg tablet 0.6 mg PO DAILY gout 09/12/24 furosemide 80 mg tablet 80 mg PO DAILY diuretic 09/12/24 levothyroxine 300 mcg tablet 300 mcg PO DAILY thyroid management 09/12/24 amoxicillin 875 mg-potassium clavulanate 125 mg tablet 1 tab PO BID #8 tabs 09/14/24 Hospital Course Operations None Procedures 2-D Echocardiogram and Blood transfusion Summary of Care Provided Minutes Spent on Discharge: 37 Hospital Course: Per HPI: ALTON KENNEY, is a 74 M with a past medical history of essential hypertension; on furosemide, history of hypertriglyceridemia; on gemfibrozil, hypothyroidism; s/p thyroidectomy; on levothyroxine, former tobacco abuse (quit ~1981), history of myelodysplastic disorder; on momelotinib followed by oncology, history of neutropenic fever, chronic anemia, splenomegaly, chronic diastolic CHF, history of longstanding persistent atrial fibrillation; on digoxin, amiodarone and apixaban, history of Watchman device at [facility] (02/2024), history of radiofrequency ablation for cardiac arrhythmia with atrial flutter (2021), CKD; stage IIIb with previous HD, history of cirrhosis; with hepatomegaly and portal venous hypertension, RLS, history of COVID-19 (2021), history of Right inguinal hernia, history of BPH; s/p prostate biopsy with TURP (2020) with urinary retention on alfuzosin and finasteride, history of Uro-Lift, history of GERD; currently not on pharmacologic treatment, history of colonoscopy, history of allergic rhinitis; on fluticasone NS, history of gout; on allopurinol and OA; with history of back injury on prn hydrocodone-acetaminophen who presents to [facility] ER complaining of RUQ abdominal pain, generalized weakness and malaise. Mr. Kenney reports his symptoms began approximately one week prior to admission with patient having recently went to Urgent Care with subsequent diagnosis of Influenza A after his daughter had recently been sick with COVID. He was sent home to recover but he continued to worsen so he decided to come in for further evaluation and treatment. He also complains of RUQ abdominal pain made worse with palpation with non-bloody diarrhea and generalized weakness. He denies related fever, chills, nausea, vomiting, dysuria, hematuria, headache, paresthesias or rash. In the ER he was noted to have CT evidence of distended gallbladder containing gallstones with patchy peripheral ground-glass opacities and hepatomegaly with marked splenomegaly and enlarged prostate with brachytherapy seeds and stable diffuse skeletal sclerotic changes consistent with history of myelofibrosis along with indeterminate Left adrenal nodule and colonic diverticulosis without evidence of diverticulitis and aortic valve calcifications considered a marker for clinically significant aortic stenosis along with Gallbladder ultrasound that revealed cholelithiasis with gallbladder mildly dilated to ~11.6 cm along with mild gallbladder wall thickening and negative sonographic Mancilla's sign and an ~ 1 cm intraparenchymal cyst of the superior Right kidney with no obstructive uropathy complicated by laboratory evidence of Leukopenia of 2.6K present on admission (with baseline ~2.7K), Anemia; with hemoglobin of 8.6 g/dL present on admission (down from his baseline of ~9-12 g/dL) compounded by Hyponatremia of 126 mmol/L present on admission. The ER physician spoke to the general surgeon on-call and recommended admission to the hospitalist service due to this patient's medical complexity which was done. He was then admitted to the PCU for ongoing care for a stay that is expected to extend beyond 2 midnights. Hospital Course: 1. Acute hypoxic insufficiency secondary to influenza A with groundglass opacities?74-year-old male presented to the hospital with increasing shortness of breath and was found to test positive for influenza A. CT scan of his abdomen and pelvis trying to evaluate his transient abdominal pain noted groundglass opacities in his lung bases. He was outside of the window for Tamiflu but was started on Zosyn to cover for the superimposed bacterial infection. During his stay his oxygen requirements improved. He was transfused 1 unit of blood secondary to his myelodysplastic disorder as he normally gets injection of Procrit if his hemoglobin is below 10. I discussed with him the plan for discharge today with outpatient follow-up and he expressed understanding of the risks and benefits of going home and would like to go home today. Will continue with Augmentin 875 mg p.o. twice daily for 4 days. He did have an ambulatory pulse ox and he was not requiring any oxygen either at rest or with ambulation on the day of discharge. 2. Transient abdominal pain?there was some concern for possible gallbladder etiology and general surgery was consulted however right upper quadrant ultrasound as well as HIDA scan was unremarkable. 3. Persistent atrial fibrillation, essential hypertension, hyperlipidemia, chronic diastolic CHF, hypothyroidism, myelodysplastic disorder, gout are all chronic medical conditions which complicate his care. His home medications were continued where appropriate. Of note on admission his TSH was normal, his T4 was high and his T3 were low, recommend continued outpatient monitoring with no adjustments to his Synthroid made during this admission. Physical Exam Narrative General: Alert, Oriented x3, Cooperative, No apparent distress HEENT: Atraumatic, PERRLA, EOMI, Normocephalic Oral: Moist Mucosa Neck: Supple, No JVD Lungs: Diminished, Normal air movement, No rhonchi, No wheeze, No rales Cardiovascular: Regular rate, Regular Rhythm, Normal S1, Normal S2, No murmurs Abdomen: Soft, Non Tender, Non-Distended, No Hepato-splenomegaly Extremities: No edema, Capillary Refill Less than 3 Seconds Skin: No rashes, No breakdown Musculoskeletal: No Tenderness to Palpation of Joints or Extremities Neurological: No focal neurological deficits, Motor Exam 5/5 strength throughout, Sensory exam intact to light touch and pain Psych/Mental Status: Normal Affect, Appropriate Weight / BMI Weight Weight: 173 lb 15.115 oz Body Mass Index (BMI) 26.4 ABG / Lab / Microbiology Data 09/14/24 05:35 09/14/24 05:35 Laboratory: Laboratory Results - last 24 hr 09/14/24 05:35: WBC 2.1 L, RBC 2.93 L, Hgb 8.3 L, Hct 26.5 L, MCV 90.4, MCH 28.3, MCHC 31.3 L, RDW Std Deviation 55.1 H, RDW Coeff of Rafael 17.0 H, Plt Count 112 L, Neut % (Auto) Not Reportable, Absolute Neuts (auto) 1.9 L, Absolute Lymphs (auto) 0.04 L, Total Counted 100, Neutrophils % (Manual) 83 H, Band Neutrophils % 8 H, Lymphocytes % (Manual) 2 L, Monocytes % (Manual) 3, Metamyelocytes % 3 H, Myelocytes % 1 H, Diff Path Review November, Platelet Estimate SLT DEC, RBC Morphology NORM C+C, Sodium 137, Potassium 4.3, Chloride Direct 102, Carbon Dioxide 21.2 L, Anion Gap 13, BUN 55 H, Creatinine 2.1 H, Estim Creat Clear Calc 30.76, Est GFR (MDRD) Non-Af 33 L, BUN/Creatinine Ratio 26.5 H, Glucose 104 H, Calcium 7.8 Microbiology: Microbiology 09/12/24 19:59 Stool Stool Lactoferrin - Final 09/12/24 19:59 Stool Enteric Bacteriology - Final 09/12/24 19:59 Stool Clostridioides difficile (PCR) - Final 09/11/24 15:50 Mucosa - Nose SARS-CoV-2, Influenza & RSV (PCR) - Final Influenzae A 09/12/24 01:15 Urine, Random Legionella Antigen - Final 09/12/24 01:15 Urine, Random Streptococcus pneumoniae Antigen (M - Final D/C Instructions Discharge Diet: Renal Diet Call your doctor if you observe: Fever of 101 or Higher, Shortness of breath, Dizziness, Fainting spells, Swelling in the ankles, Chest pain and Increased palpitations (irregular heartbeat) DC O2, CPAP, BIPAP Needs Home O2 Discharge instructions: No Meaningful Use Info Meaningful Use Meaningful Use Diagnoses (Choose all that apply): None applicable Ischemic Stroke Statin Dosing Therapy Reference: STATIN DOSE THERAPY REFERENCE: * Patients > 75 years receive moderate or high dose statin therapy. * Patients 75 years or YOUNGER should receive HIGH intensity statin dose unless contraindicated. You will be required to document reason for non-treatment if statin daily dose does not meet guidelines. HIGH DOSE STATIN THERAPY DAILY Atorvastatin > than or = to 40 mg Rosuvastatin > than or = to 20 mg Amlodipine + Atorvastatin > than or = to 2.5/40 mg Ezetimibe + Simvastatin 10/80 mg Simvastatin 80mg Discharge Plan Admission Admit Date/Time: 09/11/24 23:45 Attending Provider: Nabor Vidal Primary Care Provider: Diogenes Suarez Consulting Providers: Geoffrey Contreras; Chidi Pandey Discharge Orders/Prescriptions Prescriptions: New amoxicillin-pot clavulanate 875-125 mg tablet 1 tab PO BID Qty: 8 0RF Continued magnesium 250 mg tablet 400 mg PO DAILY Ojjaara 200 mg tablet 200 mg PO DAILY gemfibrozil [Lopid] 600 MG tablet 600 mg PO DAILY allopurinol 300 MG tablet 300 mg PO DAILY finasteride [Proscar] 5 MG tablet 5 mg PO QHS alfuzosin [Uroxatral] 10 MG tablet extended release 24 hr 10 mg PO QHS fluticasone propionate 50 mcg/actuation Norden,Suspension 1 spray INTRANASAL BID PRN (Reason: ALLERGIES) calcium carbonate 600 MG tablet 600 mg PO TID Patient Comments: pt states he takes 1200mg once a day hydrocodone-acetaminophen 5-325 mg tablet 1 tab PO Q8H PRN (Reason: Pain) 3 Days Qty: 10 0RF levothyroxine 300 mcg tablet 300 mcg PO DAILY Patient Comments: pt states he takes 300 mcg daily for 6 days and on Saturdays he takes 1.5 tablets 450 mcg colchicine 0.6 mg tablet 0.6 mg PO DAILY Patient Comments: PLEASE SEE ATTACHED FOR DETAILED DIRECTIONS clopidogrel 75 mg tablet 75 mg PO DAILY furosemide 80 mg tablet 80 mg PO DAILY furosemide 40 mg tablet 80 mg PO DAILY Patient Comments: pt states that he takes 1-80 mg tab daily digoxin 125 mcg (0.125 mg) tablet 125 mcg PO DAILY Qty: 90 3RF amiodarone 200 mg tablet 200 mg PO DAILY Qty: 90 3RF Discontinued levothyroxine 112 mcg tablet 300 mcg PO DAILY Patient Comments: 224 mcg five days a week and 112 mcg 2 days a week metronidazole 500 mg tablet 500 mg PO Q8H 10 Days Qty: 30 0RF ondansetron 4 mg tablet,disintegrating 4 mg PO Q8H PRN PRN (Reason: Nausea) Qty: 10 0RF Eliquis 2.5 mg tablet See Rx Instructions .ROUTE .COMPLEX Qty: 180 3RF Dose Instruction: take 1 tablet by mouth twice a day Rx Instructions: take 1 tablet by mouth twice a day Referrals / Follow Up: Diogenes Suarez DO [Primary Care Provider] - Within 1 Week Disposition Disposition (needs filled in before D/C Order can be placed): Home, Self Care Charges/Coding Visit Charges Inpatient E&M: 66752 Disch Hosp >30min
[2024-09-15 09:27] LABS: Pathologist Review Reviewed
== END 2024-09-14 17:32 | disposition home or self-care (01) | DRG 444 ==
LOC: ED 23:04 → PCU 09-12 00:04
PROVIDERS: Admitting Provider Internal Medicine; Emergency Provider Emergency Medicine; PCP Preventive Medicine Occupational Medicine; Visit Provider Family Medicine
DX: K80.20 Calculus of gallbladder without cholecystitis without obstruction (principal); J18.9 Pneumonia, unspecified organism; D75.81 Myelofibrosis; E87.1 Hypo-osmolality and hyponatremia; I13.0 Hypertensive heart and chronic kidney disease with heart failure and stage 1 through stage 4 chronic kidney disease, or unspecified chronic kidney disease; I50.32 Chronic diastolic (congestive) heart failure; I48.11 Longstanding persistent atrial fibrillation; E27.8 Other specified disorders of adrenal gland; N18.32 Chronic kidney disease, stage 3b; I35.0 Nonrheumatic aortic (valve) stenosis; E89.0 Postprocedural hypothyroidism; I70.0 Atherosclerosis of aorta; R19.7 Diarrhea, unspecified; K21.9 Gastro-esophageal reflux disease without esophagitis; K57.30 Diverticulosis of large intestine without perforation or abscess without bleeding; E87.6 Hypokalemia; D72.819 Decreased white blood cell count, unspecified; E78.5 Hyperlipidemia, unspecified; M10.9 Gout, unspecified; J10.1 Influenza due to other identified influenza virus with other respiratory manifestations; Z79.01 Long term (current) use of anticoagulants; Z79.890 Hormone replacement therapy; Z82.5 Family history of asthma and other chronic lower respiratory diseases; Z87.891 Personal history of nicotine dependence; Z82.3 Family history of stroke; Z86.16 Personal history of COVID-19; Z79.82 Long term (current) use of aspirin; R09.02 Hypoxemia
CPT/HCPCS: 36415; 71046; 74177; 76705; 78226; 80048; 80053; 80061; 80162; 81001; 82330; 82607; 82728; 82746; 83540; 83550; 83630; 83690; 83735; 83880; 83930; 83935; 84100; 84439; 84443; 84481; 85025; 86850; 86870; 86900; 86901; 86902; 86920; 86922; 87177; 87209; 87449; 87493; 87506; 87631; 93005; 93306; 94668; 97116; 97162; 97166; 97530; 97535; 99285; A9537; P9016; Q9967; A4216